=== PATIENT | female | born 1945 | race Caucasian/White ===

== ENCOUNTER → 2020-07-16 10:14 | Outpatient (CLI) | payer MEDICARE, BC, SELFPAY ==
[2020-07-16 10:43] LABS: Potassium 4.6 mmol/L (3.5-5.1)
== END ==
PROVIDERS: PCP Nurse Practitioner; Visit Provider Nurse Practitioner
DX: E87.5 Hyperkalemia (principal)
CPT/HCPCS: 84132

== ENCOUNTER → 2020-07-31 12:55 | Outpatient (CLI) | payer MEDICARE, BC, SELFPAY ==
--- NOTE | 2020-07-31 13:05 | BI_ITS ---
MAMMOGRAPHY - BILATERAL SCREENING REASON FOR EXAM: Female, 74 years old. Routine annual screening examination. PERTINENT HISTORY: Non-contributory. TECHNIQUE: Digital bilateral breast peter (3D mammographic acquisition) in the CC and MLO projections. 2-D mediolateral oblique (MLO) and craniocaudad (CC) views of both breasts were obtained. CAD: Full Field Digital Mammography with Computer Added Detection was performed. COMPARISON: Comparison is made with prior outside examination dated 07/12/2019. FINDINGS: Breast Composition: The breasts are heterogeneously dense, which may obscure small masses. There are no dominant masses or suspicious calcifications. Again, there is a breast asymmetry with more breast tissue is seen in the upper outer quadrant of the right breast as compared to the left side. This is unchanged. Stable small benign appearing bilateral axillary lymph nodes. No other significant abnormalities are identified. There has been no significant change since the prior study. BI/SCRN MAMM (CAD)W/PETER BILAT IMPRESSION: Stable bilateral screening mammogram. Yearly follow-up mammogram recommended. (A) ASSESSMENT CATEGORY: BIRADS Category 2: Benign. A letter regarding these results will be sent to the patient by the facility within 30 days. Approximately 10% of breast cancers are not detected by mammography. A normal mammogram should not delay biopsy of a clinically suspicious abnormality. [id number] Electronically Signed: Hemant Meneses MD at 15:43 EDT , Service support ,
== END ==
PROVIDERS: PCP Nurse Practitioner; Referring Provider Nurse Practitioner; Visit Provider Nurse Practitioner
DX: Z12.31 Encounter for screening mammogram for malignant neoplasm of breast (principal)
CPT/HCPCS: 77063; 77067

== ENCOUNTER 2021-03-18 13:37 | Outpatient (CLI) | payer MEDICARE, BC, SELFPAY ==
--- NOTE | 2021-03-18 13:41 | RAD_ITS ---
STUDY: X-RAY CHEST REASON FOR EXAM: Female, 75 years old. CHEST PRESSURE TECHNIQUE: PA and lateral views of the chest. COMPARISON: None. FINDINGS: There is hyperinflation of the lungs consistent with chronic obstructive lung disease (COPD). Mild increased markings at the left lung base. Early left basilar infiltrate should be ruled out. There is no demonstrated pleural abnormality. Normal size heart. Normal mediastinum and ge. Normal visualized pulmonary arteries. Normal visualized aortic arch and descending thoracic aorta. There is demineralization of the osseous structures. Normal visualized ribs, clavicles, and shoulders. There is no demonstrated abnormality of the visualized soft tissue structures of the upper abdomen. RAD/Chest PA and Lateral IMPRESSION: Hyperinflation. Early left lower lobe infiltrate. Electronically Signed: Hemant Meneses MD at 14:08 EST , Service support ,
[2021-03-18 15:08] LABS: Absolute Lymphocyte Count 2.32 X10^3/uL (0.83-4.51); Absolute Neutrophil Count 4.8 X10^3/uL (2.0-7.7); Basophil# 0.04 X10^3/uL; Basophil% 0.5 % (0-1); Eosinophil# 0.16 X10^3/uL; Hematocrit 38.7 % (37-47); Hemoglobin 12.3 g/dL (12.0-15.0); Lymphocyte # 2.32 X10^3/ul (0.83-4.51); Lymphocyte % 28.6 % (19-41); Mean Corp Hgb Conc 31.8 g/dL (32-36); Mean Corpuscular Volume 94.4 fL (81-99); Mean Platelet Vol. 11.9 fl (6.2-12.0); Monocyte# 0.71 X10^3/uL; Monocyte% 8.8 % (0-10); NRBC Flagged by Analyzer 0 % (0-5); Neutrophil # 4.84 X10^3/uL (2.7-7.7); Neutrophil % 59.7 % (47-70); Platelet Count 339 K/mm3 (150-450); RBC Distribution Width CV 14.4 % (11.6-14.6); RBC Distribution Width SD 49.6 fl (35.1-43.9); White Blood Count 8.1 K/mm3 (4.4-11.0)
[2021-03-18 15:36] LABS: D-Dimer Quantitative (DVT/PE) 0.66 FEU/ug/m (0.27-0.49)
[2021-03-18 15:46] LABS: ALB/GLOB Ratio 0.8 RATIO (0.9-2.4); AST(SGOT) 10 U/L (15-37); Alanine Aminotransfer ALT/SGPT 21 U/L (13-56); Albumin, Serum 3.8 g/dL (3.2-5.0); Alkaline Phosphatase 54 U/L (45-117); Anion Gap 5 (5-15); BUN 38 mg/dL (7-18); BUN/Creat Ratio 27.7 RATIO (10-20); Calcium,Total 9.6 mg/dL (8.5-10.1); Chloride 105 mmol/L (98-107); Creatinine, Serum 1.37 mg/dL (0.55-1.02); EST Glomerular Filtration Rate 40 mL/min (>60); Est Glom Filt Rate - Afr Amer 48 mL/min (>60); Globulin 4.5 g/dL (2.2-4.2); Glucose 125 mg/dL (74-106); Potassium 3.6 mmol/L (3.5-5.1); Protein, Total 8.3 g/dL (6.4-8.2); Sodium Level 137 mmol/L (136-145)
== END 2021-03-18 23:59 | disposition short-term general hospital (02) ==
LOC: MTLAB 13:39
PROVIDERS: PCP Nurse Practitioner; Referring Provider Nurse Practitioner; Visit Provider Nurse Practitioner
DX: R07.89 Other chest pain (principal); D69.3 Immune thrombocytopenic purpura
CPT/HCPCS: 36415; 71046; 80053; 85025; 85379

== ENCOUNTER 2021-04-09 10:31 | Outpatient (CLI) | payer MEDICARE, BC, SELFPAY ==
[2021-04-09 12:34] LABS: Creatinine, Serum 1.61 mg/dL (0.55-1.02); EST Glomerular Filtration Rate 33 mL/min (>60); Est Glom Filt Rate - Afr Amer 40 mL/min (>60); Thyroid Stim Hormone (TSH) 1.72 uIU/mL (0.358-3.74)
== END 2021-04-09 23:59 | disposition home or self-care (01) ==
LOC: MTLAB 10:32
PROVIDERS: PCP Nurse Practitioner; Referring Provider Psychiatry & Neurology Neurology; Visit Provider Psychiatry & Neurology Neurology
DX: G25.0 Essential tremor (principal)
CPT/HCPCS: 36415; 82565; 84443

== ENCOUNTER 2021-04-23 12:30 | Outpatient (CLI) | payer MEDICARE, BC, SELFPAY ==
--- NOTE | 2021-04-23 12:49 | MRI_ITS ---
EXAM: MR HEAD WITHOUT AND WITH INTRAVENOUS CONTRAST CLINICAL INDICATION: Gait Disorder, Nystagmus, TREMORS TECHNIQUE: Multiplanar and multisequence MR images of the brain were obtained without and with intravenous contrast. This report was created using [employer] report generation technology. CONTRAST: 13 ML IV DOTAREM COMPARISON: None. FINDINGS: BRAIN AND EXTRA-AXIAL SPACES: T2 FLAIR hyperintensity foci in the white matter of both cerebral hemispheres are nonenhancing and have no mass effects. These are chronic white matter ischemic changes. No enhancing lesions intraaxially and extra-axially. No remote cortical based ischemic infarcts. No midline shift and no mass effects. Normal ventricles and cisterns. No intra- or extra-axial hemorrhage. Posterior fossa structures are unremarkable. SELLA: Unremarkable. Normal sella turcica, pituitary gland, infundibular stalk, optic chiasm and hypothalamus. AUDITORY SYSTEM: Unremarkable. The internal auditory canals are patent. BONES/JOINTS: Unremarkable. No discrete lytic or blastic abnormalities. SINUSES: Unremarkable as visualized. Clear. MASTOID AIR CELLS: Unremarkable as visualized. Clear. ORBITS: Unremarkable as visualized. Both globes, extraocular muscles, optic nerves and retrobulbar fat appear unremarkable. VASCULATURE: Unremarkable as visualized. Normal flow voids in the major intracranial circulation. MRI/Brain W/WO Contrast IMPRESSION: 1. No MRI evidence of acute or subacute ischemic infarct or remote cortical based ischemic infarct. 2. No MRI evidence of intracranial mass. 3. Chronic white matter ischemic changes in both cerebral hemispheres. 4. No abnormal enhancing lesions intraaxially and extra-axially. Electronically Signed: Jacob Norris MD at 16:13 EST ,
--- NOTE | 2021-04-23 12:49 | MRI_ITS ---
STUDY: MRI CERVICAL SPINE WITHOUT CONTRAST REASON FOR EXAM: Female, 75 years old. Gait disorder, Neck Pain, TREMORS TECHNIQUE: Standardized fat and water weighted pulse sequences were obtained in the sagittal and axial planes. COMPARISON: None FINDINGS: Normal foramen magnum and brainstem-cervical cord junction. Normal craniovertebral junction. Normal anterior atlantoaxial articulation. Normal odontoid process. Normal cervical lordosis. Normal vertebral bodies and posterior osseous elements. C2-3: Normal endplates. Normal disc height, signal and morphology. Normal central canal and intervertebral neural foramina. C3-4: Normal endplates. Normal disc height. Minimal degenerative anterolisthesis of C3 on C4. Normal central canal and intervertebral neural foramina. C4-5: Normal endplates. Mild disc space height narrowing. Mild degenerative anterolisthesis of C4 on C5. Normal central canal and left intervertebral neural foramen. Moderately pronounced stenosis of the right intervertebral neural foramen. C5-6: MODIC type I degenerative vertebral marrow edema underneath the vertebral endplates. Moderate disc space height narrowing. Anterior and posterior marginal spurs. Normal central canal. Moderately pronounced stenosis of the intervertebral neural foramina. C6-7: Anterior posterior marginal spurs. Normal endplates. Moderate disc space height narrowing. Normal central canal and intervertebral neural foramina. C7-T1: Normal endplates. Normal disc height. Mild degenerative anterolisthesis of C7 on T1. Normal intervertebral neural foramina. Perineural cyst in the right intervertebral neural foramen. T1-T2: (Sagittal only). Normal endplates. Normal disc height. Minimal ventral extradural defect due to small posterior bulging annulus. Normal central canal and intervertebral neural foramina. T2-3: (Sagittal only). Normal endplates. Normal disc height. Minimal ventral extra dural defect due to small posterior bulging annulus. Normal central canal and intervertebral neural foramina. T3-T4: (Sagittal only). Normal endplates. Minimal disc space height narrowing. Mild degenerative anterolisthesis of T3 on T4. Normal central canal and intervertebral neural foramina. T4-T5 and T5-T6: (Sagittal only). Normal endplates. Normal disc height and morphology. Normal central canal and intervertebral neural foramina. Normal cervical cord. Normal upper thoracic spinal cord. Normal included portions of the brainstem and cerebellum. Normal visualized soft tissue structures. MRI/Spine Cervical (Routine) IMPRESSION: 1. No MRI evidence of cervical extruded disc fragment. 2. Minimal degenerative anterolisthesis of C3 on C4. 3. Minimal degenerative anterolisthesis of C4 on C5 and moderately pronounced stenosis of the right intervertebral neural foramen. 4. Mild C5-C6 intervertebral osteochondritis (MODIC type I) and moderately pronounced stenosis of the intervertebral neural foramina. 5. Mild degenerative anterolisthesis of C7 on T1 and T3 on T4. 6. Normal cervical spinal cord. Electronically Signed: Jacob Norris MD at 9:24 EST ,
== END 2021-04-23 23:59 | disposition home or self-care (01) ==
LOC: MRI 12:34
PROVIDERS: PCP Nurse Practitioner; Referring Provider Psychiatry & Neurology Neurology; Visit Provider Psychiatry & Neurology Neurology
DX: R26.9 Unspecified abnormalities of gait and mobility (principal); H55.00 Unspecified nystagmus
CPT/HCPCS: 70553; 72141; A9575

== ENCOUNTER 2021-06-04 14:15 | Outpatient (CLI) | payer MEDICARE, BC, SELFPAY ==
--- NOTE | 2021-06-04 14:19 | US_ITS ---
STUDY: RENAL ULTRASOUND - COMPLETE REASON FOR EXAM: Female, 75 years old. CKD TECHNIQUE: Ultrasound evaluation of the kidneys was performed with real-time and static alamo-scale imaging. COMPARISON: None. FINDINGS: RIGHT KIDNEY: Normal location of the right kidney, which is normal in size. The right kidney measures 9.7 cm x 4.3 cm x 4.2 cm. There is a normal cortex of the right kidney. The renal cortex measures 1.2 cm. Multiple small cysts are seen. The largest measures 8 mm x 7 mm x 7 mm. There are no right renal calculi. There is no right hydronephrosis. DISTAL RIGHT URETER: There is non-visualization of the distal right ureter. There is no demonstrated right ureterovesical junction calculus. There is a visualized right ureteral jet. LEFT KIDNEY: Normal location of the left kidney, which is normal in size. The left kidney measures 9.7 cm x 4.97 x 4.9 cm. There is a normal cortex of the left kidney. The renal cortex measures 1.0 cm. Multiple small cysts are seen. The largest measures 1.6 times by 1.4 size by 1.8 cm. There are no left renal calculi. There is no left hydronephrosis. DISTAL LEFT URETER: There is non-visualization of the distal left ureter. There is no demonstrated left ureterovesical junction calculus. There is a visualized left ureteral jet. BLADDER: The distended urinary bladder has a volume of 337 ml. There is a normal wall thickness of the distended urinary bladder. There is no demonstrated mass within the urinary bladder. There are no demonstrated bladder calculi. US/Kidney and Bladder IMPRESSION: Multiple small bilateral renal cysts. Electronically Signed: Hemant Meneses MD at 15:29 EDT ,
== END 2021-06-04 23:59 | disposition home or self-care (01) ==
LOC: US 14:18
PROVIDERS: PCP Internal Medicine; Referring Provider Internal Medicine Nephrology; Visit Provider Internal Medicine Nephrology
DX: N18.32 Chronic kidney disease, stage 3b (principal)
CPT/HCPCS: 76770

== ENCOUNTER → 2021-08-12 | Outpatient (CLI) | payer MEDICARE, BC, SELFPAY ==
[2021-08-12 15:13] LABS: Hematocrit 37.4 % (37-47); Hemoglobin 11.8 g/dL (12.0-15.0); Mean Corp Hgb Conc 31.6 g/dL (32-36); Mean Corpuscular Hgb 30.1 pg (27.0-32.0); Mean Corpuscular Volume 95.4 fL (81-99); Mean Platelet Vol. 12.1 fl (6.2-12.0); Platelet Count 277 K/mm3 (150-450); RBC Distribution Width CV 14.2 % (11.6-14.6); RBC Distribution Width SD 49.5 fl (35.1-43.9); Red Blood Count 3.92 M/mm3 (4.2-5.4); White Blood Count 7.1 K/mm3 (4.4-11.0)
[2021-08-12 15:30] LABS: Albumin, Serum 3.5 g/dL (3.2-5.0); BUN 37 mg/dL (7-18); BUN/Creat Ratio 26.6 RATIO (10-20); Calcium,Total 9.2 mg/dL (8.5-10.1); Chloride 105 mmol/L (98-107); Creatinine, Serum 1.39 mg/dL (0.55-1.02); EST Glomerular Filtration Rate 39 mL/min (>60); Est Glom Filt Rate - Afr Amer 47 mL/min (>60); Glucose 84 mg/dL (74-106); Phosphorus 2.9 mg/dL (2.5-4.9); Potassium 3.9 mmol/L (3.5-5.1); Sodium Level 139 mmol/L (136-145)
[2021-08-12 15:32] LABS: Protein, Urine (Random) 11.1 mg/dL (<11.9); Protein:Creat Ratio 211 mg/g CRE (0-200)
[2021-08-12 15:36] LABS: Vitamin D,25 Hydroxy 41.6 ng/mL
[2021-08-12 15:37] LABS: PTHIN 57.6 pg/mL (18.4-80.1)
[2021-08-14 19:06] LABS: Cytoplasmic Ab (C-ANCA) <1:20 titer (Neg:<1:20); PROEL- A/G Ratio 1.1 (0.7-1.7); PROEL- Albumin 3.8 g/dL (2.9-4.4); PROEL- Alpha-1 Globulin 0.3 g/dL (0.0-0.4); PROEL- Alpha-2 Globulin 0.7 g/dL (0.4-1.0); PROEL- Beta Globulin 1.2 g/dL (0.7-1.3); PROEL- Gamma Globulin 1.3 g/dL (0.4-1.8); PROEL- Globulin, Total 3.5 g/dL (2.2-3.9); PROEL- TOTAL PROTEIN 7.3 g/dL (6.0-8.5)
[2021-08-15 19:50] LABS: Anti-dsDNA Ab <1 IU/mL (0-9)
[2021-08-15 19:53] LABS: Complement C3 178 mg/dL (82-167); Perinuclear Ab (P-ANCA) <1:20 titer (Neg:<1:20)
== END | disposition home or self-care (01) ==
LOC: MTLAB 11:16
PROVIDERS: PCP Internal Medicine; Referring Provider Internal Medicine Nephrology; Visit Provider Internal Medicine Nephrology
DX: N18.32 Chronic kidney disease, stage 3b (principal); E55.9 Vitamin D deficiency, unspecified
CPT/HCPCS: 80069; 82306; 82570; 83970; 84156; 84165; 85027; 86160; 86225; 86256

== ENCOUNTER 2021-08-27 15:27 | Outpatient (CLI) | payer MEDICARE, BC, SELFPAY ==
[2021-08-27 15:49] VITALS: BP 153/70; PULSE 73; RESP 20; TEMP 37.7; O2SAT 94; BMI 24.5
[2021-08-27] MEDS: 0.9% Saline Lock 10 ML Syringe IV ×3 (16:00→16:10)
[2021-08-27] MEDS: BEBTELOVIMAB 175 MG/2 ML VIAL IV (16:07)
[2021-08-27 16:37] VITALS: BP 150/66; PULSE 66; RESP 20; TEMP 37.2; O2SAT 96
[2021-08-27 16:56] VITALS: BP 131/67; PULSE 69; RESP 20; TEMP 37.3; O2SAT 99
== END 2021-08-27 17:07 | disposition home or self-care (01) ==
LOC: MS3OUT 15:28 → MS2 15:29
PROVIDERS: PCP Internal Medicine; Visit Provider Nurse Practitioner Adult Health
DX: U07.1 COVID-19 (principal)
CPT/HCPCS: M0222; Q0222; A4216

== ENCOUNTER 2021-09-21 17:56 | Inpatient (IN) | payer MEDICARE, BC, SELFPAY ==
[2021-09-21 17:57] VITALS: BP 174/82; PULSE 71; RESP 16; TEMP 36.6; O2SAT 97; BMI 23.7
--- NOTE | 2021-09-21 18:37 | EDS_ITS ---
HPI History of Present Illness Chief Complaint: Complaint Informant: patient Onset/Context/Timing Onset: Days Location: bladder Current Severity: Mild Worsened by: none Relieved by: none Narrative Narrative: Patient was diagnosed with a UTI. She had cultures that showed resistance to sulfa and she was started on Keflex. She said that the Keflex did not agree with her and she was concerned for allergic reaction. She has no dyspnea, rash, GI symptoms, or HOSPITAL[employer] ASSOCIATE symptoms. No fevers or systemic symptoms currently. Her PCP told her to come to the ED to get on a different antibiotic. They said they were going to fax the culture results. Recent Illness/Hospitalization: Yes [facility] Medical History Anal condyloma Balance disorder Basal cell carcinoma Benign joint hypermobility CKD stage G3b/A1, GFR 30-44 and albumin creatinine ratio <30 mg/g Coarse tremors Decreased GFR Depression with anxiety Enchondroma Essential tremor GERD (gastroesophageal reflux disease) History of diverticulitis History of kidney stones Hyperlipemia Hypertension Idiopathic thrombocytopenic purpura (ITP) Impaired fasting glucose Nausea Nocturnal hypoxia CYNTHIA (obstructive sleep apnea) Osteopenia Pancreatic divisum Pneumonia Rectal abnormality Renal cyst Rosacea Vitamin D deficiency Home Medications doxycycline monohydrate 40 mg capsule,immediate - delay release 40 mg PO DAILY 04/09/21 [History Last Taken Unknown] famotidine 20 mg tablet (Pepcid) 20 mg PO DAILY 04/09/21 [History Last Taken Unknown] fenofibrate nanocrystallized 145 mg tablet (Tricor) 145 mg PO DAILY 04/09/21 [History Last Taken Unknown] folic acid 400 mcg tablet 0.4 mg PO DAILY 04/09/21 [History Last Taken Unknown] lisinopril 20 mg tablet 20 mg PO BID 04/09/21 [History Last Taken Unknown] prochlorperazine maleate 5 mg tablet 5 - 10 mg PO Q6H PRN Stomach Upset 04/09/21 [History Last Taken Unknown] albuterol sulfate 90 mcg/actuation aerosol inhaler 2 puff inhalation Q4H PRN shortness of breath or wheezing 07/16/21 [History Last Taken Unknown] propranolol 10 mg tablet 10 mg PO BID #60 tabs 07/16/21 [Rx Last Taken Unknown] sulfamethoxazole 800 mg-trimethoprim 160 mg tablet 1 tab PO BID 09/21/21 [History Last Taken Unknown] Allergy/AdvReac Type Severity Reaction Status Date / Time primidone Allergy Severe Anaphylaxis Verified 09/15/21 10:11 alcohol Allergy Unknown Rash Verified 09/15/21 10:11 [From Mastisol Adhesive] beef derived (bovine) Allergy Unknown Unknown Verified 09/15/21 10:11 gum mastic Allergy Unknown Rash Verified 09/15/21 10:11 [From Mastisol Adhesive] methyl salicylate Allergy Unknown Rash Verified 09/15/21 10:11 [From Mastisol Adhesive] mold Allergy Unknown Difficulty Verified 09/15/21 10:11 Breathing/Wheezing penicillin V Allergy Unknown Rash Verified 09/15/21 10:11 storax Allergy Unknown Rash Verified 09/15/21 10:11 [From Mastisol Adhesive] Statins Support Allergy Unknown Unknown Uncoded 08/27/21 14:22 Betachron AdvReac Unknown Spikes in Uncoded 08/27/21 14:22 BP Family History Father Cancer Diabetes CVA (cerebral vascular accident) Ulcer Grandfather Cancer Mother Hypertension CVA (cerebral vascular accident) Thyroid disorder Brother Hypertension Sister Hypertension Kidney disease Autoimmune disease Surgical History History of bladder surgery History of cataract surgery History of section History of cholecystectomy History of colon surgery History of D&C History of hip replacement History of hysterectomy History of kidney surgery History of left hip replacement History of splenectomy Social History Smoking Status: Never smoker Electronic Cigarette Use: not used second hand exposure: No alcohol intake: never substance use type: does not use ROS ROS ED Constitutional Constitutional ED: Denies chills or fever(s) Eyes Eyes: Denies blurry vision ENT ENT ED: Denies ear pain Cardiovascular Cardiovascular: Denies chest pain Respiratory/Chest Respiratory/Chest: Denies cough Gastrointestinal Gastrointestinal: Denies abdominal pain Genitourinary Genitourinary ED: Denies dysuria Musculoskeletal Musculoskeletal: Denies arthralgias Integumentary Denies abscess Neurologic Neurologic: Denies headache(s) Psychiatric Psychiatric: Denies anxiety Endocrine Endocrinology: Denies cold intolerance Hematologic/Lymphatic Hematologic/Lymphatic: Denies systems reviewed and no addt'l complaints, except as documented Allergic/Immunologic Allergic/Immunologic ED: Denies mouth swelling EXAM Physical Exam Const Vital Signs: 09/21/21 17:57 Temperature 97.9 F Temperature Source Temporal Pulse Rate 71 Respiratory Rate 16 Blood Pressure 174/82 H Blood Pressure Mean 112 Pulse Ox 97 Oxygen Delivery Method Room Air Positive well nourished and well developed General Appearance ED: well developed HEENT Reports moist mucous membranes Eyes EOMs intact bilaterally Resp normal respiratory effort and clear to auscultation bilaterally Cardio regular rate and regular rhythm GI normal to inspection, nondistended, normoactive bowel sounds, non-tender and non-distended Back/Spine no CVA tenderness Extremity normal to inspection Neuro oriented x3 Sensorium / Orientation: alert Psych mental status grossly normal Skin no rashes or lesions noted MDM MDM MDM Narrative Medical decision making narrative: Patient's cultures were obtained. She was sensitive to cephalosporins. I discussed her case with Dr. Sainz who advised Omnicef. Unfortunately, the patient's creatinine was elevated meeting criteria for acute kidney injury. She is not septic or showing any other complications. She was discussed with the hospitalist and will be admitted. She was treated with Rocephin and IV fluids. Impression #1 UTI Impression #2 CAMER[facility] Lab Data Attestation: I reviewed the patient's lab results. Labs: Laboratory Results - last 24 hr 09/21/21 09/21/21 18:49 18:49 WBC 9.9 RBC 4.51 Hgb 13.9 Hct 41.9 MCV 92.9 MCH 30.8 MCHC 33.2 RDW Std Deviation 51.0 H RDW Coeff of Zachariah 14.9 H Plt Count 319 MPV 11.8 Immature Gran % (Auto) 0.400 Neut % (Auto) 66.2 Lymph % (Auto) 21.5 [place] % (Auto) 10.5 H Eos % (Auto) 1.1 Baso % (Auto) 0.3 Absolute Neuts (auto) 6.5 Absolute Lymphs (auto) 2.12 Nucleated RBC % 0 Sodium 134 L Potassium 4.5 Chloride 104 Carbon Dioxide 25.0 Anion Gap 5 BUN 65 H Creatinine 2.48 H Estim Creat Clear Calc 18.35 Est GFR (MDRD) Af Amer 24 L Est GFR (MDRD) Non-Af 20 L BUN/Creatinine Ratio 26.2 H Glucose 99 Calcium 9.5 Discharge Plan Triage Chief Complaint: Complaint ED Provider: Jeancarlos Hopkins Dx/Rx/DC Orders Prescriptions: No Action doxycycline monohydrate 40 mg capsule,IR - delay rel,biphase 40 mg PO DAILY prochlorperazine maleate 5 mg tablet 5 - 10 mg PO Q6H PRN (Reason: Stomach Upset) lisinopril 20 mg tablet 20 mg PO BID fenofibrate nanocrystallized [Tricor] 145 mg tablet 145 mg PO DAILY famotidine [Pepcid] 20 mg tablet 20 mg PO DAILY folic acid 400 mcg tablet 0.4 mg PO DAILY albuterol sulfate 90 mcg/actuation HFA aerosol inhaler 2 puff inhalation Q4H PRN (Reason: shortness of breath or wheezing) propranolol 10 mg tablet 10 mg PO BID Qty: 60 3RF sulfamethoxazole-trimethoprim 800-160 mg tablet 1 tab PO BID Label Comments: take 1 tablet by mouth twice a day Primary Care Provider: Kristina Brandon Referrals: Kristina Brandon DO [Primary Care Provider] -
[2021-09-21 19:17] LABS: Absolute Lymphocyte Count 2.12 X10^3/uL (0.83-4.51); Absolute Neutrophil Count 6.5 X10^3/uL (2.0-7.7); Basophil# 0.03 X10^3/uL; Basophil% 0.3 % (0-1); Eosinophil# 0.11 X10^3/uL; Eosinophils% 1.1 % (0-5); Hematocrit 41.9 % (37-47); Hemoglobin 13.9 g/dL (12.0-15.0); Lymphocyte # 2.12 X10^3/ul (0.83-4.51); Lymphocyte % 21.5 % (19-41); Mean Corp Hgb Conc 33.2 g/dL (32-36); Mean Corpuscular Hgb 30.8 pg (27.0-32.0); Mean Corpuscular Volume 92.9 fL (81-99); Mean Platelet Vol. 11.8 fl (6.2-12.0); Monocyte# 1.04 X10^3/uL; Monocyte% 10.5 % (0-10); NRBC Flagged by Analyzer 0 % (0-5); Neutrophil # 6.52 X10^3/uL (2.7-7.7); Neutrophil % 66.2 % (47-70); Platelet Count 319 K/mm3 (150-450); RBC Distribution Width CV 14.9 % (11.6-14.6); Red Blood Count 4.51 M/mm3 (4.2-5.4); White Blood Count 9.9 K/mm3 (4.4-11.0)
[2021-09-21 19:32] LABS: Anion Gap 5 (5-15); BUN 65 mg/dL (7-18); BUN/Creat Ratio 26.2 RATIO (10-20); Calcium,Total 9.5 mg/dL (8.5-10.1); Chloride 104 mmol/L (98-107); Creatinine, Serum 2.48 mg/dL (0.55-1.02); EST Glomerular Filtration Rate 20 mL/min (>60); Est Glom Filt Rate - Afr Amer 24 mL/min (>60); Estimated Creatinine Clearance 18.35 ml/min; Glucose 99 mg/dL (74-106); Potassium 4.5 mmol/L (3.5-5.1); Sodium Level 134 mmol/L (136-145)
--- NOTE | 2021-09-21 20:17 | HP.PCM_ITS ---
HPI - General General Date of Admission: 09/21/21 Date of Service: 09/21/21 Chief Complaint: UTI and acute kidney injury HPI Narrative SARA LÓPEZ, is a 75 F who presents to the emergency room with chief complaint of feeling nauseated and dizzy. Patient had been treated as an outpatient for UTI with Keflex but was subsequently changed to Bactrim due to sensitivity data that was received on the infection. Patient has then developed side effects of feeling dizzy with the new medication and came to the emergency room for evaluation. She is now stable and feeling better however it was noticed that she had an increase in her creatinine to 2.4. She will be admitted for observation overnight for IV hydration and management of her acute kidney injury and continued on IV antibiotics to cover her UTI. [facility] Medical History Anal condyloma Balance disorder Basal cell carcinoma Benign joint hypermobility CKD stage G3b/A1, GFR 30-44 and albumin creatinine ratio <30 mg/g Coarse tremors Decreased GFR Depression with anxiety Enchondroma Essential tremor GERD (gastroesophageal reflux disease) History of diverticulitis History of kidney stones Hyperlipemia Hypertension Idiopathic thrombocytopenic purpura (ITP) Impaired fasting glucose Nausea Nocturnal hypoxia CYNTHIA (obstructive sleep apnea) Osteopenia Pancreatic divisum Pneumonia Rectal abnormality Renal cyst Rosacea Vitamin D deficiency Home Medications doxycycline monohydrate 40 mg capsule,immediate - delay release 40 mg PO DAILY 04/09/21 [History Last Taken Unknown] famotidine 20 mg tablet (Pepcid) 20 mg PO DAILY 04/09/21 [History Last Taken Unknown] fenofibrate nanocrystallized 145 mg tablet (Tricor) 145 mg PO DAILY 04/09/21 [History Last Taken Unknown] folic acid 400 mcg tablet 0.4 mg PO DAILY 04/09/21 [History Last Taken Unknown] lisinopril 20 mg tablet 20 mg PO BID 04/09/21 [History Last Taken Unknown] prochlorperazine maleate 5 mg tablet 5 - 10 mg PO Q6H PRN Stomach Upset 04/09/21 [History Last Taken Unknown] albuterol sulfate 90 mcg/actuation aerosol inhaler 2 puff inhalation Q4H PRN shortness of breath or wheezing 07/16/21 [History Last Taken Unknown] propranolol 10 mg tablet 10 mg PO BID #60 tabs 07/16/21 [Rx Last Taken Unknown] sulfamethoxazole 800 mg-trimethoprim 160 mg tablet 1 tab PO BID 09/21/21 [History Last Taken Unknown] Allergy/AdvReac Type Severity Reaction Status Date / Time primidone Allergy Severe Anaphylaxis Verified 09/15/21 10:11 alcohol Allergy Unknown Rash Verified 09/15/21 10:11 [From Mastisol Adhesive] beef derived (bovine) Allergy Unknown Unknown Verified 09/15/21 10:11 gum mastic Allergy Unknown Rash Verified 09/15/21 10:11 [From Mastisol Adhesive] methyl salicylate Allergy Unknown Rash Verified 09/15/21 10:11 [From Mastisol Adhesive] mold Allergy Unknown Difficulty Verified 09/15/21 10:11 Breathing/Wheezing penicillin V Allergy Unknown Rash Verified 09/15/21 10:11 storax Allergy Unknown Rash Verified 09/15/21 10:11 [From Mastisol Adhesive] Statins Support Allergy Unknown Unknown Uncoded 08/27/21 14:22 Betachron AdvReac Unknown Spikes in Uncoded 08/27/21 14:22 BP Family History Father Cancer Diabetes CVA (cerebral vascular accident) Ulcer Grandfather Cancer Mother Hypertension CVA (cerebral vascular accident) Thyroid disorder Brother Hypertension Sister Hypertension Kidney disease Autoimmune disease Surgical History History of bladder surgery History of cataract surgery History of section History of cholecystectomy History of colon surgery History of D&C History of hip replacement History of hysterectomy History of kidney surgery History of left hip replacement History of splenectomy Social History Smoking Status: Never smoker Electronic Cigarette Use: not used second hand exposure: No alcohol intake: never substance use type: does not use ROS Constitutional Constitutional: Denies chills or fever(s) Eyes Eyes: Denies change in vision ENT HEENT: Denies abnormal hearing Cardiovascular Cardiovascular: Denies chest pain Respiratory/Chest Respiratory/Chest: Denies shortness of breath at rest Gastrointestinal Gastrointestinal: Denies abdominal pain Genitourinary Genitourinary: Denies dysuria Musculoskeletal Musculoskeletal: Denies back pain Neurologic Neurologic: Denies abnormal speech Psychiatric Psychiatric: Denies anxiety Vital Signs Vital Signs Vital Signs: 09/21/21 17:57 Temperature 97.9 F Temperature Source Temporal Pulse Rate 71 Respiratory Rate 16 Blood Pressure 174/82 H Blood Pressure Mean 112 Pulse Ox 97 Oxygen Delivery Method Room Air Weight Weight: 147 lb Body Mass Index (BMI) 23.7 Physical Exam Const oriented x3 HEENT normocephalic and head/scalp atraumatic Eyes PERRL Neck no lymphadenopathy Resp normal respiratory effort and normal air movement Cardio regular rate, regular rhythm, S1 normal heart sound and S2 normal heart sound GI normal to inspection, nondistended, normoactive bowel sounds Extremity normal capillary refill Skin General Skin Exam: no breakdown Neuro no focal motor deficits and no sensory deficits noted Psych thought process normal Results Lab / Micro Data Result Diagrams: 09/21/21 18:49 09/21/21 18:49 Labs: Laboratory Results - last 24 hr 09/21/21 18:49: WBC 9.9, RBC 4.51, Hgb 13.9, Hct 41.9, MCV 92.9, MCH 30.8, MCHC 33.2, RDW Std Deviation 51.0 H, RDW Coeff of Zachariah 14.9 H, Plt Count 319, MPV 11.8, Immature Gran % (Auto) 0.400, Neut % (Auto) 66.2, Lymph % (Auto) 21.5, [place] % (Auto) 10.5 H, Eos % (Auto) 1.1, Baso % (Auto) 0.3, Absolute Neuts (auto) 6.5, Absolute Lymphs (auto) 2.12, Nucleated RBC % 0 09/21/21 18:49: Sodium 134 L, Potassium 4.5, Chloride 104, Carbon Dioxide 25.0, Anion Gap 5, BUN 65 H, Creatinine 2.48 H, Estim Creat Clear Calc 18.35, Est GFR (MDRD) Af Amer 24 L, Est GFR (MDRD) Non-Af 20 L, BUN/Creatinine Ratio 26.2 H, Glucose 99, Calcium 9.5 Assessment & Plan Assessment/Plan (1) UTI (urinary tract infection): (2) Acute kidney injury: PLAN: Plan 1. Acute kidney injury?admit patient to medical surgical floor for observation, start normal saline IV at 125 cc/h, repeat BMP in the morning 2. Urinary tract infection?1 g IV Rocephin every 24 hours 3. DVT prophylaxis?SCDs due to renal function changes Charges/Coding Visit Charges OBSV E&M: 74786 Initial observation care L2
[2021-09-21 20:28] VITALS: BP 158/75; PULSE 65; RESP 18; TEMP 37; O2SAT 99
[2021-09-21] MEDS: Ceftriaxone 1 GM/50 ML BAG IV (20:38)
[2021-09-21] MEDS: 0.9% Normal Saline 1,000 ML 1000 ML IV (20:38)
[2021-09-21 22:09] VITALS: BMI 24.0
[2021-09-21 23:03] VITALS: BP 159/55; PULSE 66; RESP 18; TEMP 36.1; O2SAT 95
[2021-09-21] MEDS: 0.9% Normal Saline 1,000 ML 125 ML IV (23:05)
[2021-09-21] MEDS: Famotidine 20 MG Tablet PO (23:05)
[2021-09-21] MEDS: Lisinopril 20 MG Tablet PO (23:06)
[2021-09-21] MEDS: Propranolol 10 MG Tablet PO (23:06)
[2021-09-21 23:30] VITALS: PULSE 67; RESP 18; O2SAT 99
[2021-09-22 05:55] VITALS: BP 129/57; PULSE 58; RESP 16; TEMP 36.6; O2SAT 100
[2021-09-22] MEDS: 0.9% Normal Saline 1,000 ML 125 ML IV ×3 (06:10→20:59)
[2021-09-22 06:21] VITALS: O2SAT 99
[2021-09-22 07:29] LABS: Anion Gap 8 (5-15); BUN 53 mg/dL (7-18); BUN/Creat Ratio 28.8 RATIO (10-20); Calcium,Total 8.8 mg/dL (8.5-10.1); Chloride 109 mmol/L (98-107); Creatinine, Serum 1.84 mg/dL (0.55-1.02); EST Glomerular Filtration Rate 28 mL/min (>60); Est Glom Filt Rate - Afr Amer 34 mL/min (>60); Estimated Creatinine Clearance 24.73 ml/min; Glucose 85 mg/dL (74-106); Potassium 4.8 mmol/L (3.5-5.1); Sodium Level 139 mmol/L (136-145)
[2021-09-22 08:00] VITALS: BP 143/68; PULSE 62; RESP 16; TEMP 36.6; O2SAT 100
[2021-09-22] MEDS: Folic Acid 1 MG Tablet 0.5 MG PO (08:11)
[2021-09-22] MEDS: Lisinopril 20 MG Tablet PO ×2 (09:43→20:52)
[2021-09-22] MEDS: Propranolol 10 MG Tablet PO ×2 (09:43→20:51)
--- NOTE | 2021-09-22 10:33 | CASEMGMT ---
PATRIA OLMOS Assessment: Face to Face with pt for initial transition planning/care coordination assessment. PATRIA OLMOS introduced self and role at [facility], pt voices understanding and consents to assessment. Pt is A/O x4 and answers all questions appropriately at this time. Pt lying in bed on RA in no distress. Care providers, pharmacy, and demographics verified/updated. Admitting Dx: CAMERON, UTI PCP: [facility] Specialists:Analy, puljaneth; Kane, nephro; Alton, neuro [facility] Insurance: Nancy QIU Prescription Benefit: yes LW/HPOA: Pt denies having a LW/DPOA and denies need for info regarding AD. She thinks she may have completed one in [place] but is not sure. Notified SW. LNOK: Franko Thompson, ; Lashell Thompson, dtr Living Arrangements: Pt lives with in a three story house with 2 steps to enter with a rail. Pt reports she is I in ADL's and denies concerns at home. Transportation: Pt drives self and denies concerns with transportation. States her mostly drives though. DME/HHC/SNF: Pt has a CPAP that she got through [facility] in [place]. She states she has a sleep study scheduled in September. Pt also has a shower chair, grab bars in the bathroom, a 3 prong cane as well as other canes and a walking stick. Pt denies hx of HHC and states she was in a SNF in [place]. Pt states no concerns with going home at time of dc. Pt states no further concerns/needs. CM to follow. Advised pt to ask CM if any further question/concerns/needs arise, voices understanding. Pt Goal: Home Plan: Home
--- NOTE | 2021-09-22 12:09 | CASEMGMT ---
Social Work RNCM informed SW that pt has advance directives from [place]. SW met with pt and provided blank [place] Advance Directive forms and Advance Directive Rack Card. Pt states she is familiar with the process and forms and denied help with completion at this time. ACACIA Real
[2021-09-22 14:17] VITALS: BP 155/69; PULSE 72; RESP 16; TEMP 36.7; O2SAT 98
--- NOTE | 2021-09-22 14:53 | PN.HOSP_ITS ---
Subjective Subjective Patient seen and examined. She had no active complaints. She felt much better today. Review of systems is otherwise negative. She has remained hemodynamically stable. Objective Data Objective Data Vital Signs: Vital Signs Temp Pulse Resp BP Pulse Ox O2 Del Method O2 Flow Rate 98.1 F 72 16 155/69 H 98 Room Air 2 09/22/21 14:17 09/22/21 14:17 09/22/21 14:17 09/22/21 14:17 09/22/21 14:17 09/22/21 14:17 09/22/21 05:55 Oxygen Flow Rate (L/min) 2 Oxygen Delivery Method Room Air Weight: 148 lb 12.8 oz Body Mass Index (BMI) 24.0 Intake & Output: Intake and Output for Last 24 Hours 09/20/21 09/21/21 09/22/21 23:59 23:59 23:59 Intake Total 1050 / 1050 1885.42 / 1885.42 Output Total 200 / 200 Balance 850 / 850 1885.42 / 1885.42 Lab / Micro Data Result Diagrams: 09/21/21 18:49 09/22/21 05:15 Labs: Laboratory Results - last 24 hr 09/21/21 18:49: WBC 9.9, RBC 4.51, Hgb 13.9, Hct 41.9, MCV 92.9, MCH 30.8, MCHC 33.2, RDW Std Deviation 51.0 H, RDW Coeff of Zachariah 14.9 H, Plt Count 319, MPV 11.8, Immature Gran % (Auto) 0.400, Neut % (Auto) 66.2, Lymph % (Auto) 21.5, [place] % (Auto) 10.5 H, Eos % (Auto) 1.1, Baso % (Auto) 0.3, Absolute Neuts (auto) 6.5, Absolute Lymphs (auto) 2.12, Nucleated RBC % 0 09/21/21 18:49: Sodium 134 L, Potassium 4.5, Chloride 104, Carbon Dioxide 25.0, Anion Gap 5, BUN 65 H, Creatinine 2.48 H, Estim Creat Clear Calc 18.35, Est GFR (MDRD) Af Amer 24 L, Est GFR (MDRD) Non-Af 20 L, BUN/Creatinine Ratio 26.2 H, Glucose 99, Calcium 9.5 09/22/21 05:15: Sodium 139, Potassium 4.8, Chloride 109 H, Carbon Dioxide 22.0, Anion Gap 8, BUN 53 H, Creatinine 1.84 H, Estim Creat Clear Calc 24.73, Est GFR (MDRD) Af Amer 34 L, Est GFR (MDRD) Non-Af 28 L, BUN/Creatinine Ratio 28.8 H, Glucose 85, Calcium 8.8 Physical Exam Const alert, oriented x3 and no apparent distress HEENT head/scalp atraumatic, moist oral mucous membranes and oropharynx normal Mouth: oral and palatal mucosa normal Eyes PERRL, EOMs intact bilaterally and conjunctivae normal Neck no lymphadenopathy, supple and no JVD Resp normal respiratory effort Cardio regular rate, regular rhythm, S1 normal heart sound, S2 normal heart sound and no murmurs GI normal to inspection, nondistended, normoactive bowel sounds, soft to palpation, non-tender and non-distended Extremity normal to inspection, full ROM and no clubbing, cyanosis or edema Neuro oriented x3, CN's II-XII intact bilaterally and moves all extremities Sensorium / Orientation: awake and alert Motor Exam: strength 5/5 throughout Psych affect normal Assessment & Plan Assessment/Plan (1) UTI (urinary tract infection): (2) Acute kidney injury: PLAN: Plan #CAMERON * likely medication induced * her antibiotics were switched to bactrim, which is likely the cause of her CAMERON * continue gentle hydration with IVF * bactrim discontinued * Cr is dwn to 1.84, from 2.48 on admission. * #UTI: on IV ceftriaxon #Hypertension; lisinopril held due to CAMERON. On propranolol #Hyperlipidemia: on fenofibrate DVT prophylaxis: lovenox, renally dosed Charges/Coding Visit Charges Inpatient E&M: 16356 Subs Hosp L2
[2021-09-22 20:17] VITALS: BP 173/58; PULSE 77; RESP 20; TEMP 36.7; O2SAT 97
[2021-09-22] MEDS: Famotidine 20 MG Tablet PO (20:51)
[2021-09-22] MEDS: 0.9% Saline Lock 10 ML Syringe IV (20:52)
[2021-09-23 03:51] VITALS: BP 109/36; PULSE 81; RESP 18; TEMP 36.3; O2SAT 95
[2021-09-23] MEDS: 0.9% Normal Saline 1,000 ML 125 ML IV (03:56)
[2021-09-23 07:08] LABS: Absolute Lymphocyte Count 1.65 X10^3/uL (0.83-4.51); Absolute Neutrophil Count 3.4 X10^3/uL (2.0-7.7); Basophil# 0.02 X10^3/uL; Basophil% 0.3 % (0-1); Eosinophil# 0.15 X10^3/uL; Eosinophils% 2.6 % (0-5); Hematocrit 38.4 % (37-47); Hemoglobin 12.2 g/dL (12.0-15.0); Lymphocyte # 1.65 X10^3/ul (0.83-4.51); Lymphocyte % 28.1 % (19-41); Mean Corp Hgb Conc 31.8 g/dL (32-36); Mean Corpuscular Hgb 30.7 pg (27.0-32.0); Mean Corpuscular Volume 96.7 fL (81-99); Mean Platelet Vol. 11.8 fl (6.2-12.0); Monocyte# 0.66 X10^3/uL; Monocyte% 11.2 % (0-10); NRBC Flagged by Analyzer 0 % (0-5); Neutrophil # 3.38 X10^3/uL (2.7-7.7); Neutrophil % 57.5 % (47-70); Platelet Count 281 K/mm3 (150-450); RBC Distribution Width CV 15.2 % (11.6-14.6); RBC Distribution Width SD 53.9 fl (35.1-43.9); Red Blood Count 3.97 M/mm3 (4.2-5.4); White Blood Count 5.9 K/mm3 (4.4-11.0)
[2021-09-23 07:46] LABS: Anion Gap 3 (5-15); BUN 45 mg/dL (7-18); BUN/Creat Ratio 27.1 RATIO (10-20); Calcium,Total 8.6 mg/dL (8.5-10.1); Chloride 113 mmol/L (98-107); Creatinine, Serum 1.66 mg/dL (0.55-1.02); EST Glomerular Filtration Rate 32 mL/min (>60); Est Glom Filt Rate - Afr Amer 39 mL/min (>60); Estimated Creatinine Clearance 27.41 ml/min; Glucose 84 mg/dL (74-106); Potassium 4.8 mmol/L (3.5-5.1); Sodium Level 139 mmol/L (136-145)
[2021-09-23] MEDS: Folic Acid 1 MG Tablet 0.5 MG PO (08:45)
[2021-09-23 09:01] VITALS: O2SAT 95
[2021-09-23 09:15] VITALS: BP 151/64; PULSE 74; RESP 16; TEMP 36.6; O2SAT 97
[2021-09-23] MEDS: Lisinopril 20 MG Tablet PO (09:24)
[2021-09-23] MEDS: Propranolol 10 MG Tablet PO (09:24)
--- NOTE | 2021-09-23 11:00 | DS.PCM_ITS ---
Providers Date of Admission: 09/22/21 Date of Discharge: 09/23/21 Primary Care Physician: Dr. Kristina Brandon DO Reason For Visit: ACUTE KIDNEY INJURY, UTI Diagnosis Discharge Diagnosis (1) UTI (urinary tract infection): Status: Acute Code(s): N39.0 - Urinary tract infection, site not specified (2) Acute kidney injury: Status: Acute Code(s): N17.9 - Acute kidney failure, unspecified Plan #CAMERON * likely medication induced * her antibiotics were switched to bactrim, which is likely the cause of her CAMERON * continue gentle hydration with IVF * bactrim discontinued * Cr is dwn to 1.84, from 2.48 on admission. * #UTI: on IV ceftriaxon #Hypertension; lisinopril held due to CAMERON. On propranolol #Hyperlipidemia: on fenofibrate DVT prophylaxis: lovenox, renally dosed Medications at Discharge Home Medications famotidine 20 mg tablet (Pepcid) 20 mg PO DAILY 04/09/21 fenofibrate nanocrystallized 145 mg tablet (Tricor) 145 mg PO DAILY 04/09/21 folic acid 400 mcg tablet 0.4 mg PO DAILY 04/09/21 lisinopril 20 mg tablet 20 mg PO BID 04/09/21 prochlorperazine maleate 5 mg tablet 5 - 10 mg PO Q6H PRN Stomach Upset 04/09/21 albuterol sulfate 90 mcg/actuation aerosol inhaler 2 puff inhalation Q4H PRN shortness of breath or wheezing 07/16/21 propranolol 10 mg tablet 10 mg PO BID #60 tabs 07/16/21 Hospital Course Operations None Procedures None Summary of Care Provided Minutes Spent on Discharge: 45 Hospital Course: Patient is a 75-year-old female with a past medical history as outlined was admitted through the ED on 09/21/2021 with a complaint of nausea and dizziness. Patient had been treated on outpatient basis for UTI and had been started on Keflex was subsequently switched to Bactrim based on sensitivity data. Subsequently started feeling dizzy and came into the ED. Her creatinine was noted to have trended up to 2.4 she was she was admitted to be managed for CAMERON on CKD stage IIIb. She was hydrated with IV fluids and put on IV ceftriaxone. Creatinine trended down with IV fluids and trended down to 1.66. CAMERON on CKD was thought to be due to Bactrim. Patient felt much better and did well. She was discharged on 09/23/2021. Since she had had at least 5 days of antibiotics, she was not discharged on any antibiotics for the UTI. She is to follow-up with her primary care doctor within 1 week for follow-up BMP. Patient seen and examined prior to discharge. She had no active complaints and had an uneventful night. Review of systems otherwise negative. Labs and vitals reviewed. Home medication reviewed and reconciled. Physical Exam Const alert, oriented x3 and no apparent distress General Appearance: cooperative and comfortable Orientation / Consciousness: awake Exam Limitations: no limitations HEENT normocephalic, head/scalp atraumatic, hearing grossly normal bilaterally, moist oral mucous membranes and oropharynx normal Mouth: oral and palatal mucosa normal Eyes PERRL, EOMs intact bilaterally and conjunctivae normal Neck no lymphadenopathy, supple and no JVD Resp normal respiratory effort Cardio regular rate, regular rhythm, S1 normal heart sound, S2 normal heart sound and no murmurs GI normal to inspection, nondistended, normoactive bowel sounds, soft to palpation, non-tender and non-distended Extremity normal to inspection, full ROM and no clubbing, cyanosis or edema Skin no rashes or lesions noted Neuro oriented x3, CN's II-XII intact bilaterally and moves all extremities Sensorium / Orientation: awake and alert Motor Exam: strength 5/5 throughout Psych affect normal Weight / BMI Weight Weight: 148 lb 12.8 oz Body Mass Index (BMI) 24.0 ABG / Lab / Microbiology Data Result Diagrams: 09/23/21 06:00 09/23/21 06:00 Laboratory: Laboratory Results - last 24 hr 09/23/21 06:00: WBC 5.9, RBC 3.97 L, Hgb 12.2, Hct 38.4, MCV 96.7, MCH 30.7, MCHC 31.8 L, RDW Std Deviation 53.9 H, RDW Coeff of Zachariah 15.2 H, Plt Count 281, MPV 11.8, Immature Gran % (Auto) 0.300, Neut % (Auto) 57.5, Lymph % (Auto) 28.1, [place] % (Auto) 11.2 H, Eos % (Auto) 2.6, Baso % (Auto) 0.3, Absolute Neuts (auto) 3.4, Absolute Lymphs (auto) 1.65, Nucleated RBC % 0 09/23/21 06:00: Sodium 139, Potassium 4.8, Chloride 113 H, Carbon Dioxide 23.0, Anion Gap 3 L, BUN 45 H, Creatinine 1.66 H, Estim Creat Clear Calc 27.41, Est GFR (MDRD) Af Amer 39 L, Est GFR (MDRD) Non-Af 32 L, BUN/Creatinine Ratio 27.1 H , Glucose 84, Calcium 8.6 Microbiology: Microbiology 09/21/21 19:15 Urine, Clean Catch Urine Culture - Preliminary Gram negative lucero D/C Instructions Discharge Diet: Low fat / Low cholesterol Discharge Activity: Return to Normal Activity Weight Bearing Status: Weight bearing as tolerated Call your doctor if you observe: Fever of 101 or Higher, Shortness of breath, Dizziness, Swelling in the ankles, Chest pain and Increased palpitations (irregular heartbeat) Meaningful Use Info Meaningful Use Diagnoses (Choose all that apply): None applicable Discharge Plan Admission Admit Date/Time: 09/22/21 09:18 Primary Reason for Your Visit: CAMERON on CKD Attending Provider: Lakisha Avila Primary Care Provider: Kristina Brandon Consulting Providers: Cuate Nicole Instructions Patient Instructions: Acute Kidney Failure Dc Discharge Orders/Prescriptions Prescriptions: Continued prochlorperazine maleate 5 mg tablet 5 - 10 mg PO Q6H PRN (Reason: Stomach Upset) lisinopril 20 mg tablet 20 mg PO BID fenofibrate nanocrystallized [Tricor] 145 mg tablet 145 mg PO DAILY famotidine [Pepcid] 20 mg tablet 20 mg PO DAILY folic acid 400 mcg tablet 0.4 mg PO DAILY albuterol sulfate 90 mcg/actuation HFA aerosol inhaler 2 puff inhalation Q4H PRN (Reason: shortness of breath or wheezing) propranolol 10 mg tablet 10 mg PO BID Qty: 60 3RF Discontinued sulfamethoxazole-trimethoprim 800-160 mg tablet 1 tab PO BID Label Comments: take 1 tablet by mouth twice a day Referrals / Follow Up: Kristina Brandon DO [Primary Care Provider] - Within 1 Week Disposition Disposition (needs filled in before D/C Order can be placed): Home, Self Care Charges/Coding Visit Charges Inpatient E&M: 91598 Disch Hosp
== END 2021-09-23 12:45 | disposition home or self-care (01) | DRG 683 ==
LOC: ED 18:43 → MS3 21:29
PROVIDERS: Admitting Provider Family Medicine; Emergency Provider Emergency Medicine; PCP Internal Medicine; Visit Provider Student in an Organized Health Care Education/Training Program
DX: N17.9 Acute kidney failure, unspecified (principal); N39.0 Urinary tract infection, site not specified; E78.5 Hyperlipidemia, unspecified; N18.32 Chronic kidney disease, stage 3b; I12.9 Hypertensive chronic kidney disease with stage 1 through stage 4 chronic kidney disease, or unspecified chronic kidney disease; K21.9 Gastro-esophageal reflux disease without esophagitis; G47.33 Obstructive sleep apnea (adult) (pediatric); F41.8 Other specified anxiety disorders; G25.0 Essential tremor; T36.8X5A Adverse effect of other systemic antibiotics, initial encounter; Z87.442 Personal history of urinary calculi; Z87.19 Personal history of other diseases of the digestive system; Z85.828 Personal history of other malignant neoplasm of skin; Z79.899 Other long term (current) drug therapy
CPT/HCPCS: 36415; 80048; 85025; 87086; 87088; 99284; J7030; A4216

== ENCOUNTER → 2021-09-30 | Outpatient (CLI) | payer MEDICARE, BC, SELFPAY ==
[2021-09-30 18:37] LABS: Anion Gap 8 (5-15); BUN 33 mg/dL (7-18); BUN/Creat Ratio 23.2 RATIO (10-20); Calcium,Total 9.5 mg/dL (8.5-10.1); Chloride 106 mmol/L (98-107); Creatinine, Serum 1.42 mg/dL (0.55-1.02); EST Glomerular Filtration Rate 38 mL/min (>60); Est Glom Filt Rate - Afr Amer 46 mL/min (>60); Glucose 91 mg/dL (74-106); Potassium 3.4 mmol/L (3.5-5.1); Sodium Level 140 mmol/L (136-145)
== END | disposition home or self-care (01) ==
LOC: MTLAB 14:44
PROVIDERS: PCP Internal Medicine; Referring Provider Internal Medicine; Visit Provider Internal Medicine
DX: N17.9 Acute kidney failure, unspecified (principal)
CPT/HCPCS: 36415; 80048

== ENCOUNTER → 2021-10-14 | Outpatient (CLI) | payer MEDICARE, BC, SELFPAY ==
[2021-10-14 12:41] LABS: Hematocrit 39.9 % (37-47); Hemoglobin 12.6 g/dL (12.0-15.0); Mean Corp Hgb Conc 31.6 g/dL (32-36); Mean Corpuscular Hgb 29.9 pg (27.0-32.0); Mean Corpuscular Volume 94.8 fL (81-99); Mean Platelet Vol. 12.4 fl (6.2-12.0); Platelet Count 302 K/mm3 (150-450); RBC Distribution Width CV 15.2 % (11.6-14.6); RBC Distribution Width SD 52.4 fl (35.1-43.9); Red Blood Count 4.21 M/mm3 (4.2-5.4); White Blood Count 5.8 K/mm3 (4.4-11.0)
[2021-10-14 13:11] LABS: Albumin, Serum 3.8 g/dL (3.2-5.0); BUN 34 mg/dL (7-18); BUN/Creat Ratio 24.3 RATIO (10-20); Calcium,Total 9.8 mg/dL (8.5-10.1); Chloride 106 mmol/L (98-107); EST Glomerular Filtration Rate 39 mL/min (>60); Est Glom Filt Rate - Afr Amer 47 mL/min (>60); Glucose 103 mg/dL (74-106); Phosphorus 2.9 mg/dL (2.5-4.9); Potassium 4.2 mmol/L (3.5-5.1); Sodium Level 141 mmol/L (136-145)
[2021-10-14 13:13] LABS: Vitamin D,25 Hydroxy 53.3 ng/mL
[2021-10-14 13:36] LABS: Protein, Urine (Random) < 6.0 mg/dL (<11.9)
[2021-10-15 16:09] LABS: Cytoplasmic Ab (C-ANCA) <1:20 titer (Neg:<1:20); PROEL- A/G Ratio 1.1 (0.7-1.7); PROEL- Albumin 3.8 g/dL (2.9-4.4); PROEL- Alpha-1 Globulin 0.3 g/dL (0.0-0.4); PROEL- Alpha-2 Globulin 0.7 g/dL (0.4-1.0); PROEL- Beta Globulin 1.3 g/dL (0.7-1.3); PROEL- Gamma Globulin 1.3 g/dL (0.4-1.8); PROEL- Globulin, Total 3.5 g/dL (2.2-3.9); PROEL- TOTAL PROTEIN 7.3 g/dL (6.0-8.5)
[2021-10-16 11:37] LABS: Anti-dsDNA Ab <1 IU/mL (0-9)
[2021-10-16 11:38] LABS: Complement C3 186 mg/dL (82-167); Perinuclear Ab (P-ANCA) <1:20 titer (Neg:<1:20)
== END | disposition home or self-care (01) ==
LOC: MTLAB 10:42
PROVIDERS: PCP Internal Medicine; Referring Provider Internal Medicine Nephrology; Visit Provider Internal Medicine Nephrology
DX: I12.9 Hypertensive chronic kidney disease with stage 1 through stage 4 chronic kidney disease, or unspecified chronic kidney disease (principal); N18.32 Chronic kidney disease, stage 3b; E55.9 Vitamin D deficiency, unspecified
CPT/HCPCS: 36415; 80069; 82306; 82570; 83970; 84156; 84165; 85027; 86160; 86225; 86256

== ENCOUNTER → 2021-11-03 | Outpatient (CLI) | payer MEDICARE, BC, SELFPAY ==
--- NOTE | 2021-11-03 14:15 | BI_ITS ---
MAMMOGRAPHY - BILATERAL SCREENING REASON FOR EXAM: Female, 76 years old. Routine annual screening examination. PERTINENT HISTORY: Non-contributory. TECHNIQUE: Digital bilateral breast peter (3D mammographic acquisition) in the CC and MLO projections. 2-D mediolateral oblique (MLO) and craniocaudad (CC) views of both breasts were obtained. CAD: Full Field Digital Mammography with Computer Added Detection was performed. COMPARISON: Comparison is made with prior study dated 07/31/2020. FINDINGS: Breast Composition: The breasts are heterogeneously dense, which may obscure small masses. There are no dominant masses or suspicious calcifications. Stable small benign-appearing bilateral axillary lymph nodes. No other significant abnormalities are identified. There has been no significant change since the prior study. BI/SCRN MAMM (CAD)W/PETER BILAT IMPRESSION: Stable bilateral screening mammogram. Yearly follow-up mammogram recommended. (A) ASSESSMENT CATEGORY: BIRADS Category 2: Benign. A letter regarding these results will be sent to the patient by the facility within 30 days. Approximately 10% of breast cancers are not detected by mammography. A normal mammogram should not delay biopsy of a clinically suspicious abnormality. [id number] Electronically Signed: Hemant Meneses MD at 9:26 EDT ,
--- NOTE | 2021-11-03 14:22 | BD_ITS ---
STUDY: DUAL ENERGY X-RAY ABSORPTIOMETRY / DXA REASON FOR EXAM: Female, 76 years old. [id number] TECHNIQUE: Bone Mineral Density (BMD) measurements of lumbar spine and right hip were obtained. COMPARISON: None. FINDINGS: Lumbar Spine (L1-L4): g/cm2 (0.951) / T-score (-0.3) / Z-score (2.1) Findings are suggestive of normal bone density with a low fracture risk. Right Femur Total: g/cm2 (0.819) / T-score (-1.0) / Z-score (0.8) Right Femoral Neck: g/cm2 (0.641) / T-score (-1.9) / Z-score (0.3) BD/Dexa Bone Density Study IMPRESSION: The patient is considered osteopenic as outlined below according to World [place] Organization (WHO) criteria with a moderate fracture risk. Reference Information: The T-score is the number of standard deviations above or below the standard which is normal for young adults at their peak bone mineral density. The World Health Organization (WHO) interprets the T-scores as follows: Above -1 Normal bone density Between -1 and -2.5 Osteopenia Equal to / or below -2.5 Osteoporosis As a practical clinical guideline, osteopenia may be graded as follows: Mild -1 through -1.5 Moderate -1.6 through -2.0 Severe -2.1 through -2.4 The Z-score is the number of standard deviations above or below age-matched controls. A Z-score of less than -1.5 would be considered abnormal. References: 1. NIH Osteoporosis and Related Bone Diseases www osteo.org 2. International Society for Clinical Densitometry www iscd.org 3. National Osteoporosis Foundation www nof.org Electronically Signed: Hemant Meneses MD at 14:53 EDT ,
== END | disposition home or self-care (01) ==
LOC: OPBD 14:14
PROVIDERS: PCP Internal Medicine; Visit Provider Internal Medicine
DX: Z78.0 Asymptomatic menopausal state (principal); Z12.31 Encounter for screening mammogram for malignant neoplasm of breast
CPT/HCPCS: 77063; 77067; 77080

== ENCOUNTER 2022-02-07 09:27 | Emergency (ER) | payer MEDICARE, BC, SELFPAY ==
[2022-02-07 09:28] VITALS: BP 170/89; PULSE 75; RESP 16; TEMP 36.3; O2SAT 96; BMI 25.3
[2022-02-07 09:32] VITALS: BP 156/77; PULSE 65; RESP 18; TEMP 36.7; O2SAT 94
--- NOTE | 2022-02-07 09:56 | EX.ED.VIS.UR ---
HPI HPI - URI History of Present Illness Chief Complaint: Nosebleed Informant: patient Onset/Context/Timing Onset: Weeks Context: Gradual Onset Timing: Intermittent Current Severity: Mild Maximum Severity: Mild Worsened by: Not Worsened By Swallowing, Eating Solids or Drinking Liquids Associated Symptoms Associated Symptoms: Positive for Nasal Congestion Narrative Narrative: 76-year-old female history of ITP recently had her blood work checked it was fine. Also history of prediabetes and chronic kidney disease stage III. Says for the last 3 weeks she has had intermittent nosebleeds. Nose that she has scabs inside her nose and at times she does pick at those. Had URI symptoms before this started. She is on no blood thinners does not use oxygen but does wear CPAP at night. She has had nosebleeds before. Denies any melena or hematuria. No easy bruising. Prior similar symptoms: Yes Recent Illness/Hospitalization: No ROS ROS ED ROS Narrative Recent URI. Nosebleeds. Review of Systems ROS Unobtainable: Denies due to encephalopathy Constitutional Constitutional ED: Denies chills or fever(s) Eyes Eyes: Denies blurry vision ENT ENT ED: Reports rhinorrhea; Denies ear pain or sore throat Cardiovascular Cardiovascular: Denies chest pain or palpitations Respiratory/Chest Respiratory/Chest: Reports cough; Denies dyspnea Gastrointestinal Gastrointestinal: Denies abdominal pain, constipation, diarrhea, melena, nausea or vomiting Genitourinary Genitourinary ED: Denies dysuria or hematuria Musculoskeletal Musculoskeletal: Denies arthralgias Integumentary Denies abscess Neurologic Neurologic: Denies headache(s) Psychiatric Psychiatric: Denies anxiety or depression Endocrine Endocrinology: Denies cold intolerance Hematologic/Lymphatic Hematologic/Lymphatic: Denies easy bleeding, easy bruising or lymphadenopathy Allergic/Immunologic Allergic/Immunologic ED: Denies mouth swelling, tongue swelling or urticaria PFSH [facility] Medical History Anal condyloma Asthma Balance disorder Basal cell carcinoma Benign joint hypermobility Cardiomegaly CKD stage G3b/A1, GFR 30-44 and albumin creatinine ratio <30 mg/g Coarse tremors Constipation COPD (chronic obstructive pulmonary disease) Decreased GFR Depression with anxiety Diarrhea Enchondroma Essential tremor GERD (gastroesophageal reflux disease) History of diverticulitis History of kidney stones Hyperlipemia Hypertension Idiopathic thrombocytopenic purpura (ITP) Impaired fasting glucose LUQ pain Nausea Nocturnal hypoxia CYNTHIA (obstructive sleep apnea) Osteopenia Pancreatic divisum Pneumonia Pre-diabetes Rectal abnormality Renal cyst Rosacea SOB (shortness of breath) Vitamin D deficiency Home Medications famotidine 20 mg tablet (Pepcid) 20 mg PO DAILY 04/09/21 [History Last Taken Unknown] fenofibrate nanocrystallized 145 mg tablet (Tricor) 145 mg PO DAILY 04/09/21 [History Last Taken Unknown] folic acid 400 mcg tablet 0.4 mg PO DAILY 04/09/21 [History Last Taken Unknown] lisinopril 20 mg tablet 20 mg PO BID 04/09/21 [History Last Taken Unknown] prochlorperazine maleate 5 mg tablet 5 - 10 mg PO Q6H PRN Stomach Upset 04/09/21 [History Last Taken Unknown] albuterol sulfate 90 mcg/actuation aerosol inhaler 2 puff inhalation Q4H PRN shortness of breath or wheezing 07/16/21 [History Last Taken Unknown] propranolol 10 mg tablet 20 mg PO BID #120 tabs 10/20/21 [Rx Last Taken Unknown] potassium chloride 10 mEq tablet,extended release 10 meq PO QODAY 01/07/22 [History Last Taken Unknown] sulfamethoxazole 800 mg-trimethoprim 160 mg tablet (Bactrim DS) 1 tab PO BID 3 days #6 tabs 02/07/22 [Rx Last Taken Unknown] Allergy/AdvReac Type Severity Reaction Status Date / Time primidone Allergy Severe Anaphylaxis Verified 02/07/22 09:30 montelukast Allergy Intermediate Other Verified 02/07/22 09:30 alcohol Allergy Unknown Rash Verified 02/07/22 09:30 [From Mastisol Adhesive] beef derived (bovine) Allergy Unknown Unknown Verified 02/07/22 09:30 gum mastic Allergy Unknown Rash Verified 02/07/22 09:30 [From Mastisol Adhesive] methyl salicylate Allergy Unknown Rash Verified 02/07/22 09:30 [From Mastisol Adhesive] mold Allergy Unknown Difficulty Verified 02/07/22 09:30 Breathing/Wheezing penicillin V Allergy Unknown Rash Verified 02/07/22 09:30 storax Allergy Unknown Rash Verified 02/07/22 09:30 [From Mastisol Adhesive] Nrtesmo-CIV-UpC Reductase Allergy NEEDS Verified 02/07/22 09:30 Inhibitor FOLLOW-UP Beta-Blockers AdvReac Other Verified 02/07/22 09:30 (Beta-Adrenergic Bloc Family History Father Cancer Diabetes CVA (cerebral vascular accident) Ulcer Grandfather Cancer Mother Hypertension CVA (cerebral vascular accident) Thyroid disorder Brother Hypertension Sister Hypertension Kidney disease Autoimmune disease Surgical History History of bladder surgery History of cataract surgery History of section History of cholecystectomy History of colon surgery History of D&C History of hip replacement History of hysterectomy History of kidney surgery History of left hip replacement History of splenectomy Social History Smoking Status: Never smoker Electronic Cigarette Use: not used second hand exposure: No alcohol intake: never substance use type: does not use what type of physical activity do you participate in: none tiara/protestant: Restoration seatbelt use: always EXAM Physical Exam Narrative Exam Narrative: Well-appearing 76-year-old female no acute distress. Vital signs stable afebrile. H EENT exam no active bleeding. Scabs in both anterior medial nasal septum. Currently no active bleeding or clots. Obviously signs of anterior nosebleed. Posterior pharynx normal no blood. Lungs clear. Heart regular rhythm. Abdomen soft nontender. Moving all 4 extremities. Otherwise exam unremarkable. Const Vital Signs: 02/07/22 09:28 02/07/22 09:32 Temperature 97.3 F L 98.1 F Temperature Source Temporal Temporal Pulse Rate 75 65 Respiratory Rate 16 18 Blood Pressure 170/89 H 156/77 H Blood Pressure Mean 116 103 Pulse Ox 96 94 Oxygen Delivery Method Room Air Room Air Positive well nourished and well developed; Negative for obese, cachectic or contractures General Appearance ED: well developed and NAD; Negative for cachectic, contractures, cyanotic, diaphoretic or pallor Nutritional Appearance: Negative for cachectic or obese HEENT Reports moist mucous membranes; Denies dry mucous membranes HEENT Narrative: Scabs both kiesselbachs plexus on the medial septum proximally. No active bleeding currently. Negative for normocephalic or atraumatic Face and Sinus: Negative for sinus tenderness Mouth ED: No dry mucous membranes Mouth: No dry mucous membranes Teeth and Gingiva: Negative for caries Throat: posterior oropharynx normal; Negative for tonsils abnormal or posterior oropharynx abnormal Eyes PERRL and EOMs intact bilaterally General Eye ED: Negative for pale conjunctiva or scleral icterus Neck no lymphadenopathy, supple, no meningeal signs and no JVD General: Negative for anterior neck swelling or lymphadenopathy Resp normal respiratory effort and clear to auscultation bilaterally Effort and Inspection: Negative for retractions Auscultation: Negative for rales or rhonchi Cardio S1 normal heart sound, S2 normal heart sound and no murmurs Rate: regular rate Rhythm: regular rhythm GI non-tender, non-distended and no masses Inspection: Negative for abdominal distention Auscultation: normoactive bowel sounds Palpation: soft; Negative for tender, guarding or hepatomegaly Back/Spine no CVA tenderness and normal ROM General Back: Negative for CVA tenderness Cervical Spine: Negative for cervical spine tenderness Thoracic Spine / Upper Back: Negative for thoracic spinal tenderness Lumbar Spine / Lower Back: Negative for lumbar spinal tenderness Sacrum: Negative for tenderness Extremity normal to inspection and full ROM General Extremety ED: Negative for cyanosis General Extremity: Negative for cyanosis Neuro oriented x3 and CN's II-XII intact bilaterally Sensorium / Orientation: alert, oriented to person, oriented to place and oriented to time; Negative for orientation impaired, lethargic or stuporous Motor Exam: strength 5/5 throughout Psych mental status grossly normal Appearance: Negative for other Attitude: No agitated Mood & Affect: Negative for depressed, anxious or tearful Skin General Skin Exam: Negative for jaundice or pallor Lesions: no lesions Rashes: no rashes Trauma: Negative for abrasion or laceration MDM MDM MDM Narrative Medical decision making narrative: Nosebleeds of bilateral nasal scabs. Patient was instructed not to traumatize her nose. I had planned to place bilateral Merisel packs. These are on backorder. Patient is very small nares did not want balloon packs placed. I do think those are necessary either. We used cotton balls with antibiotic ointment on them. She will remove those in 3 days. She will pull those out in 3 days. She will be placed on antibiotic but she cannot do penicillin due to prior allergy of hives. Once she pulls a pack in 3 days she can either follow-up with ENT or use Vaseline or antibiotic ointment to help moisturize the area and hopefully heal the scabs. Discharge Plan Triage Chief Complaint: Nosebleed ED Provider: Arik Rooney Dx/Rx/DC Orders Clinical Impression: Acute anterior epistaxis, History of ITP, History of chronic kidney disease Instructions: ED Epistaxis (Adult) Prescriptions: New sulfamethoxazole-trimethoprim [Bactrim DS] 800-160 mg tablet 1 tab PO BID 3 Days Qty: 6 0RF No Action prochlorperazine maleate 5 mg tablet 5 - 10 mg PO Q6H PRN (Reason: Stomach Upset) lisinopril 20 mg tablet 20 mg PO BID fenofibrate nanocrystallized [Tricor] 145 mg tablet 145 mg PO DAILY famotidine [Pepcid] 20 mg tablet 20 mg PO DAILY folic acid 400 mcg tablet 0.4 mg PO DAILY albuterol sulfate 90 mcg/actuation HFA aerosol inhaler 2 puff inhalation Q4H PRN (Reason: shortness of breath or wheezing) propranolol 10 mg tablet 20 mg PO BID Qty: 120 4RF Rx Instructions: Take 2 tablets PO BID potassium chloride 10 mEq tablet extended release 10 meq PO QODAY Primary Care Provider: Kristina Brandon Referrals: Clayton Zepeda MD [Med Staff - Active Staff] - 3-5 Days Kristina Brandon DO [Primary Care Provider] - As Needed Activity Restrictions/Additional Instructions: Do not pick at the scabs that will cause more bleeding. Pull the cotton balls out 3 to 4 days. Either Tuesday night or Tuesday. Use antibiotic ointment or Vaseline to keep your nose moist once the packing is come out. If it rebleeds hold direct pressure 2030 minutes if unable to stop return. Follow-up with the ENT Drs. Clayton Silverio or Vikram Larsen. The antibiotic Bactrim 1 pill twice a day for 3 days till the packing is removed. This will prevent a sinus infection. Disposition Disposition: Home, Self Care
[2022-02-07 10:43] VITALS: BP 160/70; PULSE 70; RESP 14; O2SAT 97
== END 2022-02-07 10:44 | disposition home or self-care (01) ==
PROVIDERS: Emergency Provider Emergency Medicine; PCP Internal Medicine; Visit Provider Emergency Medicine
DX: R04.0 Epistaxis (principal); J44.9 Chronic obstructive pulmonary disease, unspecified; N18.30 Chronic kidney disease, stage 3 unspecified; R09.81 Nasal congestion; E78.5 Hyperlipidemia, unspecified; I12.9 Hypertensive chronic kidney disease with stage 1 through stage 4 chronic kidney disease, or unspecified chronic kidney disease; G47.33 Obstructive sleep apnea (adult) (pediatric)
CPT/HCPCS: 99282

== ENCOUNTER 2022-02-20 11:52 | Emergency (ER) | payer MEDICARE, BC, SELFPAY ==
--- NOTE | 2022-02-20 11:55 | NURSING ---
NO OLD EKGS
[2022-02-20 11:58] VITALS: BP 171/81; PULSE 66; RESP 15; TEMP 36.5; O2SAT 98; BMI 25.0
--- NOTE | 2022-02-20 12:05 | RAD_ITS ---
STUDY: X-RAY CHEST REASON FOR EXAM: Female, 76 years old. Chest pain TECHNIQUE: Single AP portable view of the chest. COMPARISON: March 18, 2021 x-ray FINDINGS: There is persistent minimal linear density in the lung bases. There is no demonstrated pleural abnormality. There is borderline cardiomegaly. Normal mediastinum and ge. Normal visualized pulmonary arteries. Normal visualized aortic arch and descending thoracic aorta. Normal visualized thoracic spine. Normal visualized ribs, clavicles, and shoulders. There is no demonstrated abnormality of the visualized soft tissue structures of the upper abdomen. RAD/Chest 1 View (Portable) IMPRESSION: Persistent and/or recurrent atelectasis and/or scarring at the lung bases no visualized focal infiltrate. Electronically Signed: Mima Pickering MD at 13:10 EST ,
[2022-02-20 12:14] VITALS: O2SAT 98
[2022-02-20 12:16] LABS: Absolute Lymphocyte Count 2.08 X10^3/uL (0.83-4.51); Absolute Neutrophil Count 6.4 X10^3/uL (2.0-7.7); Basophil# 0.01 X10^3/uL; Basophil% 0.1 % (0-1); Eosinophil# 0.23 X10^3/uL; Eosinophils% 2.4 % (0-5); Hematocrit 41.7 % (37-47); Hemoglobin 13.3 g/dL (12.0-15.0); Lymphocyte # 2.08 X10^3/ul (0.83-4.51); Lymphocyte % 21.6 % (19-41); Mean Corp Hgb Conc 31.9 g/dL (32-36); Mean Corpuscular Volume 93.9 fL (81-99); Mean Platelet Vol. 11.3 fl (6.2-12.0); Monocyte# 0.93 X10^3/uL; Monocyte% 9.7 % (0-10); NRBC Flagged by Analyzer 0 % (0-5); Neutrophil # 6.35 X10^3/uL (2.7-7.7); Neutrophil % 65.9 % (47-70); Platelet Count 300 K/mm3 (150-450); RBC Distribution Width CV 14.6 % (11.6-14.6); RBC Distribution Width SD 50.6 fl (35.1-43.9); Red Blood Count 4.44 M/mm3 (4.2-5.4); White Blood Count 9.6 K/mm3 (4.4-11.0)
[2022-02-20 12:33] LABS: Anion Gap 6 (5-15); BUN 39 mg/dL (7-18); BUN/Creat Ratio 25.5 RATIO (10-20); Calcium,Total 9.4 mg/dL (8.5-10.1); Chloride 107 mmol/L (98-107); Creatinine, Serum 1.53 mg/dL (0.55-1.02); EST Glomerular Filtration Rate 35 mL/min (>60); Est Glom Filt Rate - Afr Amer 42 mL/min (>60); Estimated Creatinine Clearance 29.28 ml/min; Glucose 99 mg/dL (74-106); Potassium 4.3 mmol/L (3.5-5.1); Sodium Level 139 mmol/L (136-145); Troponin-I HS (w/2H Reflex) 6 pg/mL (3.0-54.0)
--- NOTE | 2022-02-20 12:35 | ED.VIS.CHEST ---
HPI History of Present Illness Chief Complaint: Chest Pain Narrative Narrative: 76-year-old female presenting with chest pain. She states she has had this on and off throughout the last 7 days. She describes it as pressure. She does not get lightheaded, weak, diaphoretic. She states she feels short of breath but this is chronic and unchanged. She states her primary care physician told her she had COPD. She states has never been a smoker. Her resource management planner told her she has asthma. She does not feel that she has been wheezing. She denies fever, chills, myalgias. She has a cough with clear sputum. She does not feel unwell. Today her chest pressure has been present since 6 AM when she woke up without any other symptoms. [facility] Medical History Anal condyloma Asthma Balance disorder Basal cell carcinoma Benign joint hypermobility Cardiomegaly CKD stage G3b/A1, GFR 30-44 and albumin creatinine ratio <30 mg/g Coarse tremors Constipation COPD (chronic obstructive pulmonary disease) Decreased GFR Depression with anxiety Diarrhea Enchondroma Essential tremor GERD (gastroesophageal reflux disease) History of diverticulitis History of kidney stones Hyperlipemia Hypertension Idiopathic thrombocytopenic purpura (ITP) Impaired fasting glucose LUQ pain Nausea Nocturnal hypoxia CYNTHIA (obstructive sleep apnea) Osteopenia Pancreatic divisum Pneumonia Pre-diabetes Rectal abnormality Renal cyst Rosacea SOB (shortness of breath) Vitamin D deficiency Home Medications famotidine 20 mg tablet (Pepcid) 20 mg PO DAILY 04/09/21 [History Last Taken Unknown] fenofibrate nanocrystallized 145 mg tablet (Tricor) 145 mg PO DAILY 04/09/21 [History Last Taken Unknown] folic acid 400 mcg tablet 0.4 mg PO DAILY 04/09/21 [History Last Taken Unknown] lisinopril 20 mg tablet 20 mg PO BID 04/09/21 [History Last Taken Unknown] prochlorperazine maleate 5 mg tablet 5 - 10 mg PO Q6H PRN Stomach Upset 04/09/21 [History Last Taken Unknown] albuterol sulfate 90 mcg/actuation aerosol inhaler 2 puff inhalation Q4H PRN shortness of breath or wheezing 07/16/21 [History Last Taken Unknown] propranolol 10 mg tablet 20 mg PO BID #120 tabs 10/20/21 [Rx Last Taken Unknown] potassium chloride 10 mEq tablet,extended release 10 meq PO QODAY 01/07/22 [History Last Taken Unknown] sulfamethoxazole 800 mg-trimethoprim 160 mg tablet (Bactrim DS) 1 tab PO BID 3 days #6 tabs 02/07/22 [Rx Last Taken Unknown] Allergy/AdvReac Type Severity Reaction Status Date / Time primidone Allergy Severe Anaphylaxis Verified 02/20/22 11:52 montelukast Allergy Intermediate Other Verified 02/20/22 11:52 alcohol Allergy Unknown Rash Verified 02/20/22 11:52 [From Mastisol Adhesive] beef derived (bovine) Allergy Unknown Unknown Verified 02/20/22 11:52 gum mastic Allergy Unknown Rash Verified 02/20/22 11:52 [From Mastisol Adhesive] methyl salicylate Allergy Unknown Rash Verified 02/20/22 11:52 [From Mastisol Adhesive] mold Allergy Unknown Difficulty Verified 02/20/22 11:52 Breathing/Wheezing penicillin V Allergy Unknown Rash Verified 02/20/22 11:52 storax Allergy Unknown Rash Verified 02/20/22 11:52 [From Mastisol Adhesive] [id number]-[id number] Reductase Allergy NEEDS Verified 02/20/22 11:52 Inhibitor FOLLOW-UP Beta-Blockers AdvReac Other Verified 02/20/22 11:52 (Beta-Adrenergic Bloc Family History Father Cancer Diabetes CVA (cerebral vascular accident) Ulcer Grandfather Cancer Mother Hypertension CVA (cerebral vascular accident) Thyroid disorder Brother Hypertension Sister Hypertension Kidney disease Autoimmune disease Surgical History History of bladder surgery History of cataract surgery History of section History of cholecystectomy History of colon surgery History of D&C History of hip replacement History of hysterectomy History of kidney surgery History of left hip replacement History of splenectomy Social History Smoking Status: Never smoker Electronic Cigarette Use: not used second hand exposure: No alcohol intake: never substance use type: does not use what type of physical activity do you participate in: none tiara/christian: Congregation seatbelt use: always ROS ROS ED Constitutional Constitutional ED: Denies chills or sweats Eyes Eyes: Denies blurry vision or change in vision ENT ENT ED: Denies rhinorrhea or sore throat Cardiovascular Cardiovascular: Reports as per HPI Respiratory/Chest Respiratory/Chest: Reports cough and dyspnea Gastrointestinal Gastrointestinal: Denies abdominal pain or constipation Genitourinary Genitourinary ED: Denies dysuria or hematuria Musculoskeletal Musculoskeletal: Denies arthralgias or back pain Integumentary Denies abscess Neurologic Neurologic: Denies headache(s) or paresthesias Psychiatric Psychiatric: Denies anxiety or depression EXAM Physical Exam Const Vital Signs: 02/20/22 11:58 02/20/22 12:14 Temperature 97.7 F L Temperature Source Temporal Pulse Rate 66 Respiratory Rate 15 Blood Pressure 171/81 H Blood Pressure Mean 111 Pulse Ox 98 98 Oxygen Delivery Method Room Air Room Air Positive well nourished General Appearance ED: NAD; Negative for pallor HEENT Reports moist mucous membranes Eyes PERRL and EOMs intact bilaterally Chest Wall inspection of chest normal Resp normal respiratory effort and clear to auscultation bilaterally Auscultation: Negative for rales, rhonchi or wheezes Cardio regular rate and regular rhythm GI normal to inspection, nondistended, normoactive bowel sounds Extremity normal to inspection Neuro oriented x3 and CN's II-XII intact bilaterally Sensorium / Orientation: awake and alert Motor Exam: strength 5/5 throughout Psych mental status grossly normal Skin no rashes or lesions noted General Skin Exam: Negative for jaundice or pallor Heart Score History: Slightly/Non-Suspicious ECG: Normal Age: >/= 65 years Risk Factors: 1 or 2 Risk Factors Troponin: </= Normal Limit Score: 3 MDM MDM MDM Narrative Medical decision making narrative: 76-year-old female presenting with chest pressure which has been present for about 6 hours today. It has been intermittent throughout the week. Patient is PERC negative. EKG on my interpretation is normal sinus rhythm with a ventricular rate of 67 bpm without sign of ischemic change. CBC and BMP are unremarkable. High-sensitivity troponin. Chest x-ray my interpretation shows no acute cardiopulmonary process and radiologist interpretation agrees given that this has been going on for a week with constant pain for 6 hours I do not believe this is cardiac and I do not believe she needs a delta troponin. Vital signs are stable and she is afebrile. Her lungs are clear to auscultation. I think she is stable for discharge home with follow-up with her primary care physician. Impression: 1. Dyspnea 2. Chest pain Lab Data Attestation: I reviewed the patient's lab results. Labs: Laboratory Results - last 24 hr 02/20/22 02/20/22 12:08 12:08 WBC 9.6 RBC 4.44 Hgb 13.3 Hct 41.7 MCV 93.9 MCH 30.0 MCHC 31.9 L RDW Std Deviation 50.6 H RDW Coeff of Zachariah 14.6 Plt Count 300 MPV 11.3 Immature Gran % (Auto) 0.300 Neut % (Auto) 65.9 Lymph % (Auto) 21.6 [place] % (Auto) 9.7 Eos % (Auto) 2.4 Baso % (Auto) 0.1 Absolute Neuts (auto) 6.4 Absolute Lymphs (auto) 2.08 Nucleated RBC % 0 Sodium 139 Potassium 4.3 Chloride 107 Carbon Dioxide 26.0 Anion Gap 6 BUN 39 H Creatinine 1.53 H Estim Creat Clear Calc 29.28 Est GFR (MDRD) Af Amer 42 L Est GFR (MDRD) Non-Af 35 L BUN/Creatinine Ratio 25.5 H Glucose 99 Calcium 9.4 Troponin I High Sens 6 Radiography Diagnostic Testing: Clinical Impression(s) from Imaging Studies Chest X-Ray 02/20/22 12:05 IMPRESSION: Persistent and/or recurrent atelectasis and/or scarring at the lung bases no visualized focal infiltrate. Electronically Signed: Mima Pickering MD at 13:10 EST Reading Location ID and State: [facility] / [place] Tel , Service support , Discharge Plan Triage Chief Complaint: Chest Pain ED Provider: Arnoldo Monae Dx/Rx/DC Orders Instructions: ED Chest Pain, Uncertain Cause Prescriptions: No Action prochlorperazine maleate 5 mg tablet 5 - 10 mg PO Q6H PRN (Reason: Stomach Upset) lisinopril 20 mg tablet 20 mg PO BID fenofibrate nanocrystallized [Tricor] 145 mg tablet 145 mg PO DAILY famotidine [Pepcid] 20 mg tablet 20 mg PO DAILY folic acid 400 mcg tablet 0.4 mg PO DAILY albuterol sulfate 90 mcg/actuation HFA aerosol inhaler 2 puff inhalation Q4H PRN (Reason: shortness of breath or wheezing) propranolol 10 mg tablet 20 mg PO BID Qty: 120 4RF Rx Instructions: Take 2 tablets PO BID potassium chloride 10 mEq tablet extended release 10 meq PO QODAY sulfamethoxazole-trimethoprim [Bactrim DS] 800-160 mg tablet 1 tab PO BID 3 Days Qty: 6 0RF Primary Care Provider: Kristina Brandon Referrals: Kristina Brandon DO [Primary Care Provider] - Disposition Disposition: Home, Self Care
[2022-02-20 13:42] VITALS: BP 122/83; PULSE 69; RESP 15; O2SAT 98
[2022-02-20 14:12] LABS: Reflex Troponin-HS? (from REC) Y
== END 2022-02-20 13:42 | disposition home or self-care (01) ==
PROVIDERS: Emergency Provider Student in an Organized Health Care Education/Training Program; PCP Internal Medicine; Visit Provider Student in an Organized Health Care Education/Training Program
DX: R06.00 Dyspnea, unspecified (principal); R07.9 Chest pain, unspecified; G47.33 Obstructive sleep apnea (adult) (pediatric)
CPT/HCPCS: 71045; 80048; 84484; 85025; 93005; 99284; A4216

== ENCOUNTER → 2022-03-19 | Outpatient (CLI) | payer MEDICARE, BC, SELFPAY ==
[2022-03-19 15:58] LABS: Absolute Lymphocyte Count 2.35 X10^3/uL (0.83-4.51); Absolute Neutrophil Count 4.5 X10^3/uL (2.0-7.7); Basophil# 0.02 X10^3/uL; Basophil% 0.2 % (0-1); Eosinophil# 0.26 X10^3/uL; Eosinophils% 3.2 % (0-5); Hematocrit 39.1 % (37-47); Hemoglobin 12.8 g/dL (12.0-15.0); Lymphocyte # 2.35 X10^3/ul (0.83-4.51); Lymphocyte % 29.2 % (19-41); Mean Corp Hgb Conc 32.7 g/dL (32-36); Mean Corpuscular Hgb 30.8 pg (27.0-32.0); Mean Corpuscular Volume 94.2 fL (81-99); Mean Platelet Vol. 12.2 fl (6.2-12.0); Monocyte# 0.92 X10^3/uL; Monocyte% 11.4 % (0-10); NRBC Flagged by Analyzer 0 % (0-5); Neutrophil % 55.9 % (47-70); Platelet Count 269 K/mm3 (150-450); RBC Distribution Width CV 14.9 % (11.6-14.6); RBC Distribution Width SD 51.7 fl (35.1-43.9); Red Blood Count 4.15 M/mm3 (4.2-5.4); White Blood Count 8.1 K/mm3 (4.4-11.0)
== END | disposition home or self-care (01) ==
LOC: LABSPEC 15:17
PROVIDERS: PCP Internal Medicine; Visit Provider Nurse Practitioner Family
DX: D69.3 Immune thrombocytopenic purpura (principal)
CPT/HCPCS: 85025

== ENCOUNTER → 2022-03-26 | Outpatient (CLI) | payer MEDICARE, BC, SELFPAY ==
[2022-03-26 14:06] LABS: Anion Gap 8 (5-15); BUN 45 mg/dL (7-18); BUN/Creat Ratio 29.2 RATIO (10-20); Calcium,Total 9.6 mg/dL (8.5-10.1); Chloride 104 mmol/L (98-107); Creatinine, Serum 1.54 mg/dL (0.55-1.02); EST Glomerular Filtration Rate 35 mL/min (>60); Est Glom Filt Rate - Afr Amer 42 mL/min (>60); Glucose 91 mg/dL (74-106); Potassium 4.5 mmol/L (3.5-5.1); Sodium Level 135 mmol/L (136-145)
== END | disposition home or self-care (01) ==
LOC: MTLAB 11:49
PROVIDERS: PCP Internal Medicine; Referring Provider Internal Medicine Nephrology; Visit Provider Internal Medicine Nephrology
DX: N18.32 Chronic kidney disease, stage 3b (principal)
CPT/HCPCS: 36415; 80048; 82570; 84156

== ENCOUNTER 2022-10-28 12:00 | Outpatient (RCR) | payer MEDICARE, BC, SELFPAY ==
--- NOTE | 2022-10-19 16:22 | HP.PTEVAL ---
Patient's Visit Information Visit Information Visit Information: SARA LÓPEZ is a 77 year old F referred to Physical Therapy by Dr. Kristina Brandon DO with a diagnosis of L shoulder pain. Date of Evaluation: 10/19/22 Physical Therapist: Matt Asif, DPT, OCS, CSCS Visit Plan Frequency: 2x /Week Duration: 4-6 Weeks Plan: 2x/week for 3-6 weeks for 1. MH and STM to L UT 2. strength posture and L RC to HEP 3. g-h mobs L shoulder grade 3-4 and distraction. Subjective Subjective: I had tons of PT in [place]. Sylvia had numerous falls due to tremors. L shoulder and arm lately has started hurting. X ray shows nothing. Recommended PT. Sees Dr. Dang for trigger shots in the neck whcih may be wearing off. This is for tremors. This pain is worse than usual but not sure why. No injury really. Moved from [place] in 2020 and it is colder summer than normal. No falls in a while. Pain is worse for last two weeks. comfortable at rest. Reaching up hurts the most. Ran into wall today, no falls in 3 years since her TARA L. Lying in bed can hurt. awakens sometimes. roll on left side is worse It is tender to touch. No numbness or tingling UE. Not employed. Basic ADLs are getting done, avoids cleaning but due to tremors more than pain. Ex; signed up at but not working at it yet. Hobbies: Takes care of with Alzheimers, lots of cognitive. She has to drive today. 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 Pain L shoulder: Pain Intensity (Out of 10): 0 Pain Intensity Range: 0 and 8 Comment: worse with movement Objective Objective: Slightly neuropathic gait, some tremors while sitting in head/neck. L scapula elevated vs R , B scapula forward and protracted. tender to touch supra and infraspinatus tendons moderatley, min at g-h joint ant and posterior, min in UT L. + HK and neer tests, - sulcus, - ext rotation lag, - drop arm. all on L. Full aROM of B UE but end range of er and elevation is painful on L. Feels tight as does IR. elbow and wrist WFL ROM. Cervical AROM ext 30 and L rotation 45 and R rotation 55, no shoulder pain. tightness in L UT with L rotation. - c/s compression test. strength UE 3+ elevation B and er L with pain. 4- R. Bi and tri and wrist 4- without pain. reflexes 1./3 bi and tri Sensation UE WNL to gross light touch. Walks safely and I into PT with slight wide TARA, Trasnfers are I. Balance/Special Test Scores Quick DASH Score: 63.6350 Goals Goal 1:: Full aROM L shoulder without pain Goal Time Frame: 4-6 Weeks Goal 2:: Pt feel pain 1/10 at worst and 75% better Goal Time Frame: 4-6 Weeks Goal 3:: I appropr HEP to minimize future problems Goal Time Frame: 4-6 Weeks Goal 4:: quick dash score 16 or better Goal Time Frame: 4-6 Weeks Rehabilitation Potential Physical Therapy Diagnosis: Likely impingement L shoulder tendonitis. Rehabilitation Potential: Fair Anticipated Interventions Patient/Client Instruction: Educate patient on: Condition and Plan of Care For the Purpose of:: To decrease pain, To increase ROM, To improve nutrient delivery to tissue, To improve muscle performance and motor function and To increase tolerance to activity/condition/position Therapeutic Exercise to Include: Strength training, Postural training, Flexibilty training, Passive ROM, Active ROM and Scapular Strength/Stabilization For the Purpose of:: To decrease pain, To increase ROM, To improve nutrient delivery to tissue, To improve muscle performance and motor function and To increase tolerance to activity/condition/position Manual Therapy Techniques to Include: Mobilization, Passive ROM and Soft tissue mobilization For the Purpose of:: To decrease pain and To increase ROM Thermo therapy (hot pack): Yes (UT) For the Purpose of:: To decrease pain and To decrease swelling/inflammation Text: Thank you for the opportunity to evaluate your patient. For Medicare and Medicare HMO plans, please review the plan of care and approve it. It will need to be FAXED BACK to us at [phone] for Medicare purposes. For Medicare only, by signing this I certify the plan of care. Please let me know if there are questions or concerns regarding this plan of care. Physician Signature: Date:
--- NOTE | 2022-12-02 15:40 | HP.PT.NRP ---
Patient Information Patient Information: SARA LÓPEZ was seen in my office for initial evaluation on 10/19/22. The following Plan of Care was established for this patient: POC Established Initial Frequency: 2x /Week Initial Duration: 4-6 Weeks Anticipated Interventions Patient/Client Instruction: Educate patient on: Condition and Plan of Care For the Purpose of:: To decrease pain, To increase ROM, To improve nutrient delivery to tissue, To improve muscle performance and motor function and To increase tolerance to activity/condition/position Therapeutic Exercise to Include: Strength training, Postural training, Flexibilty training, Passive ROM, Active ROM and Scapular Strength/Stabilization For the Purpose of:: To decrease pain, To increase ROM, To improve nutrient delivery to tissue, To improve muscle performance and motor function and To increase tolerance to activity/condition/position Manual Therapy Techniques to Include: Mobilization, Passive ROM and Soft tissue mobilization For the Purpose of:: To decrease pain and To increase ROM Thermo therapy (hot pack): Yes (UT) For the Purpose of:: To decrease pain and To decrease swelling/inflammation Last Seen Last Seen: This patient was last seen in our office 10/19/22. Pertinent comments regarding their Physical therapy will appear below: Pt seen one visit and POC established but patient did not schedule or attend. At this point, it has been over 6 weeks and I will discontinue due to nonattendance. At this point I will be discontinuing this patient from physical therapy. I would be happy to see this patient again in the future if found appropriate by the physician. Thank you! Matt Asif, DPT, OCS, CSCS Balance/Gait/Functional tests Balance/Special Test Scores Quick DASH Score: 63.6366
== END 2022-10-28 19:00 | disposition home or self-care (01) ==
LOC: PT 12:00
PROVIDERS: PCP Internal Medicine; Referring Provider Internal Medicine; Visit Provider Internal Medicine
DX: M25.512 Pain in left shoulder (principal)
CPT/HCPCS: 97110; 97140; 97161

== ENCOUNTER → 2022-11-16 | Outpatient (CLI) | payer MEDICARE, BC, SELFPAY ==
--- NOTE | 2022-11-16 13:10 | BI_ITS ---
MAMMOGRAPHY - BILATERAL SCREENING REASON FOR EXAM: Female, 77 years old. Routine annual screening examination. PERTINENT HISTORY: Non-contributory. TECHNIQUE: Digital bilateral breast peter (3D mammographic acquisition) in the CC and MLO projections. 2-D mediolateral oblique (MLO) and craniocaudad (CC) views of both breasts were obtained. CAD: Full Field Digital Mammography with Computer Added Detection was performed. COMPARISON: Comparison is made with prior study November 03, 2021 and July 31, 2020. FINDINGS: Breast Composition: The breasts are heterogeneously dense, which may obscure small masses. There are no dominant masses or suspicious calcifications. Stable small benign-appearing bilateral axillary lymph nodes. No other significant abnormalities are identified. There has been no significant change since the prior study. BI/SCRN MAMM (CAD)W/PETER BILAT IMPRESSION: Stable bilateral screening mammogram. Yearly follow-up mammogram recommended. (A) ASSESSMENT CATEGORY: BIRADS Category 2: Benign. A letter regarding these results will be sent to the patient by the facility within 30 days. Approximately 10% of breast cancers are not detected by mammography. A normal mammogram should not delay biopsy of a clinically suspicious abnormality. [id number] Electronically Signed: Hemant Meneses MD at 14:04 EDT ,
== END | disposition home or self-care (01) ==
LOC: OPBI 13:09
PROVIDERS: PCP Internal Medicine; Referring Provider Internal Medicine; Visit Provider Internal Medicine
DX: Z12.31 Encounter for screening mammogram for malignant neoplasm of breast (principal)
CPT/HCPCS: 77063; 77067

== ENCOUNTER 2022-11-21 12:48 | Emergency (ER) | payer MEDICARE, BC, SELFPAY ==
[2022-11-21 12:50] VITALS: BP 169/74; PULSE 72; RESP 12; TEMP 36.3; O2SAT 98; BMI 24.8
--- NOTE | 2022-11-21 13:15 | RAD_ITS ---
INDICATION: pain EXAMINATION/TECHNIQUE: X-RAY - RIGHT XR Knee Complete 4 Views or More 4 VIEWS COMPARISON: No relevant prior comparison study available FINDINGS: SOFT TISSUES: No soft tissue swelling or gas. No radiopaque foreign body. BONES/JOINTS: No acute fracture or subluxation.. Possible tiny effusion in the suprapatellar joint space. Preservation of the joint space.. No sclerotic or destructive changes observed. RAD/Knee 4 or More Views IMPRESSION: No evidence of acute osseous injury. Possible small joint effusion. Electronically Signed: Kehinde Ann MD at 13:55 EDT ,
--- NOTE | 2022-11-21 13:16 | EDS_ITS ---
HPI History of Present Illness Chief Complaint: Lower Extremity Injury Informant: patient Narrative Narrative: 77-year-old female presenting to the emergency department chief complaint of right knee pain. Patient states that yesterday she was climbing stairs with her lead foot on the step in front of her she lifted up and felt a pop in the infrapatellar region. Since then she notes swelling in the infrapatellar area. She has been able to bear weight. She denies any posterior leg pain. She denies any other injuries. No prior knee surgery on this side. [facility] Medical History Anal condyloma Asthma Balance disorder Basal cell carcinoma Benign joint hypermobility Cardiomegaly CKD stage G3b/A1, GFR 30-44 and albumin creatinine ratio <30 mg/g Coarse tremors Constipation COPD (chronic obstructive pulmonary disease) Decreased GFR Depression with anxiety Diarrhea Enchondroma Essential tremor GERD (gastroesophageal reflux disease) History of diverticulitis History of kidney stones Hyperlipemia Hypertension Idiopathic thrombocytopenic purpura (ITP) Impaired fasting glucose LUQ pain Nausea Nocturnal hypoxia CYNTHIA (obstructive sleep apnea) Osteopenia Pancreatic divisum Pneumonia Pre-diabetes Rectal abnormality Renal cyst Rosacea SOB (shortness of breath) Vitamin D deficiency Home Medications famotidine 20 mg tablet (Pepcid) 20 mg PO DAILY 04/09/21 [History Last Taken Unknown] fenofibrate nanocrystallized 145 mg tablet (Tricor) 145 mg PO DAILY 04/09/21 [History Last Taken Unknown] folic acid 400 mcg tablet 0.4 mg PO DAILY 04/09/21 [History Last Taken Unknown] lisinopril 20 mg tablet 20 mg PO BID 04/09/21 [History Last Taken Unknown] prochlorperazine maleate 5 mg tablet 5 - 10 mg PO Q6H PRN Stomach Upset 04/09/21 [History Last Taken Unknown] albuterol sulfate 90 mcg/actuation aerosol inhaler 2 puff inhalation Q4H PRN shortness of breath or wheezing 07/16/21 [History Last Taken Unknown] potassium chloride 10 mEq tablet,extended release 10 meq PO QODAY 01/07/22 [History Last Taken Unknown] sulfamethoxazole 800 mg-trimethoprim 160 mg tablet (Bactrim DS) 1 tab PO BID 3 days #6 tabs 02/07/22 [Rx Last Taken Unknown] lifitegrast 5 % eye drops in a dropperette (Xiidra) 1 drp ophthalmic (eye) BID 03/11/22 [History Last Taken Unknown] propranolol 10 mg tablet 20 mg (2 x 10 mg) PO BID #360 tabs 05/13/22 [Rx Last Taken Unknown] Allergy/AdvReac Type Severity Reaction Status Date / Time primidone Allergy Severe Anaphylaxis Verified 11/21/22 12:49 montelukast Allergy Intermediate Other Verified 11/21/22 12:49 alcohol Allergy Unknown Rash Verified 11/21/22 12:49 [From Mastisol Adhesive] beef derived (bovine) Allergy Unknown Unknown Verified 11/21/22 12:49 gum mastic Allergy Unknown Rash Verified 11/21/22 12:49 [From Mastisol Adhesive] methyl salicylate Allergy Unknown Rash Verified 11/21/22 12:49 [From Mastisol Adhesive] mold Allergy Unknown Difficulty Verified 11/21/22 12:49 Breathing/Wheezing penicillin V Allergy Unknown Rash Verified 11/21/22 12:49 storax Allergy Unknown Rash Verified 11/21/22 12:49 [From Mastisol Adhesive] Aupckrr-TYT-SrC Reductase Allergy NEEDS Verified 11/21/22 12:49 Inhibitor FOLLOW-UP black pepper AdvReac Unknown UNKNOWN Verified 11/21/22 12:49 Beta-Blockers AdvReac Other Verified 11/21/22 12:49 (Beta-Adrenergic Bloc Family History Father Cancer Diabetes CVA (cerebral vascular accident) Ulcer Grandfather Cancer Mother Hypertension CVA (cerebral vascular accident) Thyroid disorder Brother Hypertension Sister Hypertension Kidney disease Autoimmune disease Surgical History History of bladder surgery History of cataract surgery History of section History of cholecystectomy History of colon surgery History of D&C History of hip replacement History of hysterectomy History of kidney surgery History of left hip replacement History of splenectomy Social History Smoking Status: Never smoker Electronic Cigarette Use: not used second hand exposure: No alcohol intake: never substance use type: does not use what type of physical activity do you participate in: none tiara/tenriism: Buddhism seatbelt use: always ROS ROS ED Constitutional Constitutional ED: Denies chills or weight loss Eyes Eyes: Denies change in vision or diplopia ENT ENT ED: Denies ear pain, rhinorrhea or sore throat Cardiovascular Cardiovascular: Denies chest pain, orthopnea, palpitations or racing heartbeat Respiratory/Chest Respiratory/Chest: Denies cough, dyspnea or orthopnea Gastrointestinal Gastrointestinal: Denies abdominal pain, diarrhea, nausea or vomiting Genitourinary Genitourinary ED: Denies dysuria, hematuria or urinary frequency Musculoskeletal Musculoskeletal: Reports other Details: Right knee pain ; Denies arthralgias or myalgias Integumentary Denies abscess or rash Neurologic Neurologic: Denies headache(s) or weakness Psychiatric Psychiatric: Denies anxiety, depression, suicidal ideation or suicidal thoughts Endocrine Endocrinology: Denies polydipsia, polyphagia or polyuria Allergic/Immunologic Allergic/Immunologic ED: Denies mouth swelling, tongue swelling or urticaria EXAM Physical Exam Const Vital Signs: 11/21/22 12:50 Temperature 97.3 F L Temperature Source Temporal Pulse Rate 72 Respiratory Rate 12 Blood Pressure 169/74 H Blood Pressure Mean 105 Pulse Ox 98 Oxygen Delivery Method Room Air Positive well nourished and well developed General Appearance ED: well developed HEENT Reports normocephalic, head/scalp atraumatic and moist mucous membranes Eyes PERRL and EOMs intact bilaterally Neck no lymphadenopathy, supple and no JVD Resp normal respiratory effort and clear to auscultation bilaterally Cardio regular rate, regular rhythm and no murmurs GI normal to inspection, nondistended, normoactive bowel sounds and non-tender Palpation: soft Back/Spine no CVA tenderness and normal ROM Extremity Extremity Narrative: Patient has no joint line tenderness. There is no effusion present. Tenderness in the infrapatellar region along with slight edema. There is no overlying erythema or increased warmth. Ligaments appear stable on direct testing. General Extremety ED: Negative for edema General Extremity: Negative for edema Neuro oriented x3 and CN's II-XII intact bilaterally Sensorium / Orientation: alert Sensory Exam: No sensory level loss detected Motor Exam: strength 5/5 throughout Psych mental status grossly normal Mood & Affect: Negative for depressed or tearful Skin no rashes or lesions noted and no wounds MDM MDM MDM Narrative Medical decision making narrative: My interpretation of the plain films of the right knee is no acute fracture. There is some soft tissue swelling possibly of the suprapatellar bursa however clinically her symptoms are infrapatellar. We will treat with Eyal wrap ice and anti-inflammatories. At this point I do not think that the patient has meniscal injury as her symptoms are anterior infrapatellar. If no improvement with conservative treatment we will have her follow-up with primary care or orthopedics. Radiography Diagnostic Testing: Clinical Impression(s) from Imaging Studies Knee X-Ray 11/21/22 13:15 IMPRESSION: No evidence of acute osseous injury. Possible small joint effusion. Electronically Signed: Kehinde Ann MD at 13:55 EDT , Discharge Plan Triage Chief Complaint: Lower Extremity Injury ED Provider: Jeancarlos Hunt Dx/Rx/DC Orders Clinical Impression: Acute knee pain, Bursitis Instructions: ED Bursitis Prescriptions: No Action prochlorperazine maleate 5 mg tablet 5 - 10 mg PO Q6H PRN (Reason: Stomach Upset) lisinopril 20 mg tablet 20 mg PO BID fenofibrate nanocrystallized [Tricor] 145 mg tablet 145 mg PO DAILY famotidine [Pepcid] 20 mg tablet 20 mg PO DAILY folic acid 400 mcg tablet 0.4 mg PO DAILY albuterol sulfate 90 mcg/actuation HFA aerosol inhaler 2 puff inhalation Q4H PRN (Reason: shortness of breath or wheezing) Xiidra 5 % dropperette 1 drp ophthalmic (eye) BID Rx Instructions: administer approximately 12 hours apart potassium chloride 10 mEq tablet extended release 10 meq PO QODAY sulfamethoxazole-trimethoprim [Bactrim DS] 800-160 mg tablet 1 tab PO BID 3 Days Qty: 6 0RF propranolol 10 mg tablet 20 mg PO BID Qty: 360 1RF Rx Instructions: Take 2 tablets PO BID Primary Care Provider: Kristina Brandon Referrals: Kristina Brandon DO [Primary Care Provider] - Disposition Disposition: Home, Self Care Discharge Date/Time: 11/21/22 14:34
== END 2022-11-21 14:34 | disposition home or self-care (01) ==
LOC: ED 13:10
PROVIDERS: Emergency Provider Emergency Medicine; PCP Internal Medicine; Visit Provider Emergency Medicine
DX: M70.51 Other bursitis of knee, right knee (principal); N18.32 Chronic kidney disease, stage 3b; M25.561 Pain in right knee; G47.33 Obstructive sleep apnea (adult) (pediatric)
CPT/HCPCS: 73564; 99282

== ENCOUNTER → 2023-03-15 | Outpatient (CLI) | payer MEDICARE, BC, SELFPAY ==
--- NOTE | 2023-03-15 08:17 | MRI_ITS ---
STUDY: MRI RIGHT KNEE REASON FOR EXAM: Female, 77 years old. Pain, rule out loose body. TECHNIQUE: Standardized fat and water weighted pulse sequences were obtained in all 3 orthogonal planes. COMPARISON: Right knee radiographs dated 11/21/2022. FINDINGS: There is a partial radial tear of the posterior horn of the medial meniscus (sagittal PD series 4 images 26-28). There is a curvilinear subchondral fracture of the medial tibial plateau with surrounding marrow edema (coronal T2 series 7 images 15-19). Normal medial femoral condyle. There is a grade I MCL sprain with periligamentous edema. Normal distal semimembranosus, gracilis and semitendinosus tendons. Normal lateral meniscus. Normal hyaline cartilage of the lateral femorotibial compartment. Normal lateral femoral condyle and tibial plateau. Normal proximal tibiofibular articulation. Normal lateral collateral ( fibular ) ligament. Normal popliteus tendon. Normal biceps femoris tendon. Normal anterior cruciate ligament (ACL). Normal posterior cruciate ligament (PCL). There is high-grade chondromalacia along the patellar apex with underlying subchondral marrow edema (axial T2 series 3 image 8). Normal congruent patellofemoral articulation. Normal medial and lateral patellar retinaculum. Normal quadriceps tendon. Normal patellar tendon. Normal Hoffa''s fat pad. There is a large volume joint effusion. There is a small popliteal cyst. The soft tissues are unremarkable. MRI/Lower Ext Joint Only (Routine) IMPRESSION: Partial radial tear of the posterior horn of the medial meniscus. Curvilinear subchondral fracture of the medial tibial plateau with surrounding marrow edema. Grade I MCL sprain. High-grade chondromalacia along the patellar apex with underlying subchondral marrow edema. Large joint effusion, with a small popliteal cyst. Electronically Signed: Paul Garza MD at 9:55 EST ,
== END | disposition home or self-care (01) ==
LOC: MRI 08:03
PROVIDERS: PCP Internal Medicine; Referring Provider Orthopaedic Surgery Sports Medicine; Visit Provider Orthopaedic Surgery Sports Medicine
DX: M25.561 Pain in right knee (principal)
CPT/HCPCS: 73721

== ENCOUNTER 2023-03-31 11:56 | Emergency (ER) | payer MEDICARE, BC, SELFPAY ==
[2023-03-31 11:59] VITALS: BP 165/70; BP 175/74; PULSE 72; PULSE 74; RESP 16; TEMP 36.6; O2SAT 97; O2SAT 98; BMI 25.4
--- NOTE | 2023-03-31 12:30 | CT_ITS ---
STUDY: CT BRAIN WITHOUT CONTRAST REASON FOR EXAM: Female, 77 years old. Head trauma RADIATION DOSAGE (If Supplied By Facility): CTDIvol = ( 44.99 ) mGy, DLP = ( 796.11 ) mGycm TECHNIQUE: Transaxial CT imaging of the brain was performed without administration of intravenous contrast material. Individualized dose optimization techniques were used for this CT. COMPARISON: No relevant priors. FINDINGS: Normal soft tissue structures. There is hyperostosis frontalis internus. There is mild cerebral atrophy with widening of the extra-axial spaces and ventricular dilatation. There are areas of decreased attenuation within the white matter tracts of the supratentorial brain, consistent with microvascular disease changes. Normal basal ganglia and thalami. Normal brainstem. Normal cerebellum. There is no intracranial hemorrhage. There are no findings of an acute ischemic infarction. Mucosal thickening along the posterior aspect of the left sphenoid sinus. CT/Brain/Head without Contrast IMPRESSION: Chronic involutional changes of the brain. Mucosal thickening along the posterior aspect of the left sphenoid sinus. Electronically Signed: Hemant Meneses MD at 13:02 EST ,
--- NOTE | 2023-03-31 12:30 | CT_ITS ---
STUDY: CT CERVICAL SPINE WITHOUT CONTRAST REASON FOR EXAM: Female, 77 years old. Neck pain RADIATION DOSAGE (If Supplied By Facility): CTDIvol = ( 18.73 ) mGy, DLP = ( 403.49 ) mGycm TECHNIQUE: High resolution transaxial imaging was performed without contrast material. Sagittal and coronal images were reconstructed. Individualized dose optimization techniques were used for this CT. COMPARISON: None FINDINGS: Normal craniovertebral junction. There are degenerative changes of the anterior atlantoaxial articulation. Normal odontoid process. Normal cervical lordosis. Normal vertebral bodies and posterior osseous elements. C2-3: Facet joint osteoarthritis and hypertrophy. C3-4: Minimal anterior listhesis of C3 on C4 most likely secondary to the facet joint osteoarthritis and hypertrophy. This is worse on the right side. This also evidence of uncovertebral arthrosis. Moderate degree right neural foraminal stenosis. C4-5: Moderate degree of disc space narrowing. Facet joint osteoarthritis and hypertrophy worse on the left side. Uncovertebral arthrosis. Moderate degree of bilateral neural foraminal stenosis worse on the right side. C5-6: Marked degree of disc space narrowing and spondylosis. Uncovertebral arthrosis. Worse on the right side. Bilateral neural foraminal stenosis. C6-7: Marked degree of disc space narrowing and spondylosis. Facet joint osteoarthritis and hypertrophy. C7-T1: Normal endplates. Normal disc height and morphology. Normal central canal and intervertebral neuroforamina. Normal visualized soft tissue structures. CT/Spine Cervical without Contras IMPRESSION: Multilevel degenerative changes, as described above. Electronically Signed: Hemant Meneses MD at 13:08 EST ,
--- NOTE | 2023-03-31 12:31 | EX.ED.GENINJ ---
HPI History of Present Illness Chief Complaint: Fall Narrative Narrative: 77-year-old female presenting for evaluation. She states she got her left foot caught on a rug and spun around tripped falling backwards. She states she basically was able to catch most of resolved but sat on the floor fell and hit her head. No LOC. Patient felt initially dizzy after hitting her head but this is resolved. No visual complaints. No nausea, vomiting. She has been up and ambulate since then. She has a mild headache. She states she did hit her left elbow as she was going down but does not think she hurt severely. She notes there is no bruising and she is able to range the left shoulder and elbow. 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 GERD (gastroesophageal reflux disease) History of diverticulitis History of kidney stones Hyperlipemia Hypertension Idiopathic thrombocytopenic purpura (ITP) Impaired fasting glucose Nocturnal hypoxia CYNTHIA (obstructive sleep apnea) Osteopenia Pancreatic divisum Pneumonia Pre-diabetes Rectal abnormality Renal cyst Rosacea SOB (shortness of breath) Vitamin D deficiency Home Medications famotidine 20 mg tablet (Pepcid) 20 mg PO DAILY 04/09/21 [History Last Taken Unknown] fenofibrate nanocrystallized 145 mg tablet (Tricor) 145 mg PO DAILY 04/09/21 [History Last Taken Unknown] folic acid 400 mcg tablet 0.4 mg PO DAILY 04/09/21 [History Last Taken Unknown] lisinopril 20 mg tablet 20 mg PO BID 04/09/21 [History Last Taken Unknown] prochlorperazine maleate 5 mg tablet 5 - 10 mg PO Q6H PRN Stomach Upset 04/09/21 [History Last Taken Unknown] albuterol sulfate 90 mcg/actuation aerosol inhaler 2 puff inhalation Q4H PRN shortness of breath or wheezing 07/16/21 [History Last Taken Unknown] potassium chloride 10 mEq tablet,extended release 10 meq PO QODAY 01/07/22 [History Last Taken Unknown] azithromycin 250 mg tablet 250 mg PO QDAY #12 tabs 01/26/23 [Rx Last Taken Unknown] buspirone 5 mg tablet 5 mg PO BID #60 tabs 02/10/23 [Rx Last Taken Unknown] propranolol 10 mg tablet 20 mg (2 x 10 mg) PO BID #120 tabs 02/10/23 [Rx Last Taken Unknown] cholecalciferol (vitamin D3) 25 mcg (1,000 unit) capsule 25 mcg PO DAILY low bone density 3 months #90 caps 03/17/23 [Rx Last Taken Unknown] Allergy/AdvReac Type Severity Reaction Status Date / Time primidone Allergy Severe Anaphylaxis Verified 03/17/23 13:21 montelukast Allergy Intermediate Other Verified 03/17/23 13:21 alcohol Allergy Unknown Rash Verified 03/17/23 13:21 [From Mastisol Adhesive] beef derived (bovine) Allergy Unknown Unknown Verified 03/17/23 13:21 gum mastic Allergy Unknown Rash Verified 03/17/23 13:21 [From Mastisol Adhesive] methyl salicylate Allergy Unknown Rash Verified 03/17/23 13:21 [From Mastisol Adhesive] mold Allergy Unknown Difficulty Verified 03/17/23 13:21 Breathing/Wheezing penicillin V Allergy Unknown Rash Verified 03/17/23 13:21 storax Allergy Unknown Rash Verified 03/17/23 13:21 [From Mastisol Adhesive] [id number] Reductase Allergy NEEDS Verified 03/17/23 13:21 Inhibitor FOLLOW-UP black pepper AdvReac Unknown UNKNOWN Verified 03/17/23 13:21 Family History Father Cancer colon Diabetes CVA (cerebral vascular accident) Ulcer Grandfather Cancer stomach Mother Hypertension CVA (cerebral vascular accident) Thyroid disorder Brother Hypertension Hyperlipidemia Sister Hypertension Hyperlipidemia Surgical History H/O elbow surgery History of cataract surgery History of section History of cholecystectomy History of D&C History of hip replacement History of hysterectomy History of left hip replacement History of splenectomy S/P nasal surgery Social History household members: spouse current occupational status: retired current occupation: biostatistician Smoking Status: Never smoker Electronic Cigarette Use: not used second hand exposure: No alcohol intake: never substance use type: does not use what type of physical activity do you participate in: none tiara/spiritism: Anglican seatbelt use: always do you feel safe at home: Yes ROS ROS ED Constitutional Constitutional ED: Denies chills, fever(s) or sweats Eyes Eyes: Denies blurry vision or change in vision ENT ENT ED: Denies ear pain or sore throat Cardiovascular Cardiovascular: Denies chest pain, palpitations or racing heartbeat Respiratory/Chest Respiratory/Chest: Denies cough, dyspnea or sputum Gastrointestinal Gastrointestinal: Denies abdominal pain, constipation, diarrhea, nausea or vomiting Genitourinary Genitourinary ED: Denies dysuria, hematuria or urinary frequency Musculoskeletal Musculoskeletal: Denies arthralgias, myalgias or neck pain Integumentary Denies abscess, Abrasions or rash Neurologic Neurologic: Reports headache(s); Denies paresthesias or weakness Psychiatric Psychiatric: Denies anxiety, depression, suicidal ideation or suicidal thoughts Endocrine Endocrinology: Denies polydipsia or polyuria EXAM Physical Exam Const Vital Signs: 03/31/23 11:59 03/31/23 11:59 03/31/23 11:59 Temperature 98 F Temperature Source Oral Pulse Rate 72 74 Respiratory Rate 16 16 Respiratory Effort Normal Blood Pressure 165/70 H 175/74 H Blood Pressure Mean 101 107 Pulse Ox 97 98 Oxygen Delivery Method Room Air Room Air Room Air Positive well nourished General Appearance ED: NAD HEENT atraumatic; Negative for trauma Eyes PERRL and EOMs intact bilaterally Chest Wall inspection of chest normal Resp normal respiratory effort Cardio regular rhythm GI normal to inspection, nondistended, normoactive bowel sounds Extremity Extremity Narrative: Left elbow nontender to palpation. Normal range of motion. Left and extension maintained. No bruising or edema. Neuro oriented x3 and CN's II-XII intact bilaterally Sensorium / Orientation: alert Motor Exam: strength 5/5 throughout Psych mental status grossly normal Skin no wounds MDM MDM MDM Narrative Medical decision making narrative: Patient presenting with neck pain and headache after mechanical fall. Differential includes intracranial hemorrhage, skull fracture, concussion, cervical strain, C-spine fracture. CT brain and cervical spine will be obtained. Patient declines anything stronger than Tylenol at this time. No nausea currently. CT brain and cervical spine were negative. Patient counseled on findings. This point I feel she stable for discharge. Return precautions discussed. Impression: 1. Mechanical fall 2. Closed head injury 3. Cervical strain Lab Data Attestation: I reviewed the patient's lab results. Radiography Diagnostic Testing: Clinical Impression(s) from Imaging Studies Brain CT 03/31/23 12:30 IMPRESSION: Chronic involutional changes of the brain. Mucosal thickening along the posterior aspect of the left sphenoid sinus. Electronically Signed: Hemant Meneses MD at 13:02 EST , Cervical Spine CT 03/31/23 12:30 IMPRESSION: Multilevel degenerative changes, as described above. Electronically Signed: Hemant Meneses MD at 13:08 EST , Discharge Plan Triage Chief Complaint: Fall ED Provider: Arnoldo Monae Dx/Rx/DC Orders Instructions: ED Head Injury (Adult), ED Neck Sprain or Strain, ED Fall Prevention Prescriptions: No Action prochlorperazine maleate 5 mg tablet 5 - 10 mg PO Q6H PRN (Reason: Stomach Upset) lisinopril 20 mg tablet 20 mg PO BID fenofibrate nanocrystallized [Tricor] 145 mg tablet 145 mg PO DAILY famotidine [Pepcid] 20 mg tablet 20 mg PO DAILY folic acid 400 mcg tablet 0.4 mg PO DAILY albuterol sulfate 90 mcg/actuation HFA aerosol inhaler 2 puff inhalation Q4H PRN (Reason: shortness of breath or wheezing) potassium chloride 10 mEq tablet extended release 10 meq PO QODAY buspirone 5 mg tablet 5 mg PO BID Qty: 60 6RF propranolol 10 mg tablet 20 mg PO BID Qty: 120 6RF Rx Instructions: Take 2 tablets PO BID azithromycin 250 mg tablet 250 mg PO QDAY Qty: 12 0RF Rx Instructions: 2 tablets today, then 1 tablet daily on days 2 through 11 cholecalciferol (vitamin D3) 25 mcg (1,000 unit) capsule 25 mcg PO DAILY MDD 1 90 Days Qty: 90 0RF Primary Care Provider: Jaclyn Siddiqui Referrals: Jaclyn Siddiqui MD [Primary Care Provider] - Disposition Disposition: Home, Self Care
[2023-03-31] MEDS: Acetaminophen 500 MG Tablet 1000 MG PO (12:34)
[2023-03-31 14:30] VITALS: BP 142/68; PULSE 74; RESP 16; O2SAT 98
== END 2023-03-31 14:31 | disposition home or self-care (01) ==
PROVIDERS: Emergency Provider Student in an Organized Health Care Education/Training Program; PCP Internal Medicine; Visit Provider Student in an Organized Health Care Education/Training Program
DX: S09.90XA Unspecified injury of head, initial encounter (principal); J44.9 Chronic obstructive pulmonary disease, unspecified; N18.31 Chronic kidney disease, stage 3a; S16.1XXA Strain of muscle, fascia and tendon at neck level, initial encounter; G47.33 Obstructive sleep apnea (adult) (pediatric); W01.0XXA Fall on same level from slipping, tripping and stumbling without subsequent striking against object, initial encounter; Z86.16 Personal history of COVID-19
CPT/HCPCS: 70450; 72125; 99282

== ENCOUNTER → 2023-04-05 | Outpatient (CLI) | payer MEDICARE, BC, SELFPAY ==
[2023-04-05 10:15] LABS: Hematocrit 41.3 % (37-47); Hemoglobin 13.2 g/dL (12.0-15.0); Mean Corpuscular Hgb 30.4 pg (27.0-32.0); Mean Corpuscular Volume 95.2 fL (81-99); Platelet Count 263 K/mm3 (150-450); RBC Distribution Width CV 14.5 % (11.6-14.6); RBC Distribution Width SD 50.6 fl (35.1-43.9); Red Blood Count 4.34 M/mm3 (4.2-5.4); White Blood Count 6.2 K/mm3 (4.4-11.0)
[2023-04-05 10:59] LABS: Albumin, Serum 3.5 g/dL (3.2-5.0); BUN 35 mg/dL (7-18); BUN/Creat Ratio 26.1 RATIO (10-20); Calcium,Total 9.8 mg/dL (8.5-10.1); Chloride 107 mmol/L (98-107); Creatinine, Serum 1.34 mg/dL (0.55-1.02); EST Glomerular Filtration Rate 41 mL/min (>60); Est Glom Filt Rate - Afr Amer 49 mL/min (>60); Glucose 107 mg/dL (74-106); Phosphorus 3.2 mg/dL (2.5-4.9); Potassium 4.1 mmol/L (3.5-5.1); Sodium Level 137 mmol/L (136-145)
[2023-04-05 11:14] LABS: PTHIN 46.8 pg/mL (18.4-80.1); Protein, Urine (Random) 7.1 mg/dL (<11.9); Protein:Creat Ratio 152 mg/g CRE (0-200)
== END | disposition home or self-care (01) ==
LOC: MTLAB 08:39
PROVIDERS: PCP Internal Medicine; Referring Provider Internal Medicine Nephrology; Visit Provider Internal Medicine Nephrology
DX: E55.9 Vitamin D deficiency, unspecified (principal); N18.32 Chronic kidney disease, stage 3b
CPT/HCPCS: 36415; 80069; 82306; 82570; 83970; 84156; 85027

== ENCOUNTER → 2023-04-20 | Outpatient (CLI) | payer MEDICARE, BC, SELFPAY ==
[2023-04-20 13:18] LABS: AST(SGOT) 15 U/L (15-37); Alanine Aminotransfer ALT/SGPT 19 U/L (13-56); Albumin, Serum 3.8 g/dL (3.2-5.0); Alkaline Phosphatase 47 U/L (45-117); Cholesterol 164 mg/dL (200); Globulin 3.7 g/dL (2.2-4.2); High Density Lipoprotein 43 mg/dL; Protein, Total 7.5 g/dL (6.4-8.2); Thyroid Stim Hormone (TSH) 1.18 uIU/mL (0.358-3.74); Triglycerides 106 mg/dL; Very Low Density Lipoprotein 21 mg/dL (5-40)
== END | disposition home or self-care (01) ==
LOC: BIMLAB 09:23
PROVIDERS: PCP Internal Medicine; Visit Provider Internal Medicine
DX: I10 Essential (primary) hypertension (principal)
CPT/HCPCS: 36415; 80061; 80076; 84443

== ENCOUNTER → 2023-07-07 | Outpatient (CLI) | payer MEDICARE, BC, SELFPAY ==
--- NOTE | 2023-07-07 10:12 | RAD_ITS ---
STUDY: X-RAY CHEST REASON FOR EXAM: Female, 77 years old. COUGH TECHNIQUE: PA and lateral views of the chest. COMPARISON: None. FINDINGS: The lungs are clear and expanded. There is no demonstrated pleural abnormality. Normal size heart. Normal mediastinum and ge. Normal visualized pulmonary arteries. Normal visualized aortic arch and descending thoracic aorta. Normal visualized thoracic spine. Normal visualized ribs, clavicles, and shoulders. There is no demonstrated abnormality of the visualized soft tissue structures of the upper abdomen. RAD/Chest PA and Lateral IMPRESSION: Normal x-ray examination of the chest. Electronically Signed: Duong Danielle MD at 22:52 EDT ,
== END | disposition home or self-care (01) ==
LOC: MTRAD 10:09
PROVIDERS: PCP Internal Medicine; Referring Provider Internal Medicine Pulmonary Disease; Visit Provider Internal Medicine Pulmonary Disease
DX: R05.9 Cough, unspecified (principal)
CPT/HCPCS: 71046

== ENCOUNTER → 2023-09-06 | Outpatient (CLI) | payer MEDICARE, BC, SELFPAY | END | disposition home or self-care (01) | LOC: LABSPEC 16:37 | PROVIDERS: PCP Internal Medicine; Referring Provider Nurse Practitioner; Visit Provider Nurse Practitioner | DX: J06.9 Acute upper respiratory infection, unspecified (principal) | CPT/HCPCS: 87631 ==

== ENCOUNTER → 2023-11-18 | Outpatient (CLI) | payer MEDICARE, BC, SELFPAY ==
--- NOTE | 2023-11-18 10:19 | BI_ITS ---
MAMMOGRAPHY - BILATERAL SCREENING REASON FOR EXAM: Female, 78 years old. Routine annual screening examination. PERTINENT HISTORY: Non-contributory. TECHNIQUE: Digital bilateral breast peter (3D mammographic acquisition) in the CC and MLO projections. 2-D mediolateral oblique (MLO) and craniocaudad (CC) views of both breasts were obtained. CAD: Full Field Digital Mammography with Computer Added Detection was performed. COMPARISON: Comparison is made with prior study dated November 16, 2022 and November 03, 2021 FINDINGS: Breast Composition: The breasts are heterogeneously dense, which may obscure small masses. There are no dominant masses or suspicious calcifications. No other significant abnormalities are identified. There has been no significant change since the prior study. BI/SCRN MAMM (CAD)W/PETER BILAT IMPRESSION: Stable bilateral screening mammogram. Yearly follow-up mammogram recommended. (A) ASSESSMENT CATEGORY: BIRADS Category 1: Negative. A letter regarding these results will be sent to the patient by the facility within 30 days. Approximately 10% of breast cancers are not detected by mammography. A normal mammogram should not delay biopsy of a clinically suspicious abnormality. [id number] Electronically Signed: Hemant Meneses MD at 10:57 EDT ,
== END | disposition home or self-care (01) ==
LOC: OPBI 10:18
PROVIDERS: PCP Internal Medicine; Referring Provider Internal Medicine; Visit Provider Internal Medicine
DX: Z12.31 Encounter for screening mammogram for malignant neoplasm of breast (principal)
CPT/HCPCS: 77063; 77067

== ENCOUNTER → 2023-11-23 | Outpatient (CLI) | payer MEDICARE, BC, SELFPAY ==
--- NOTE | 2023-11-23 13:55 | BD_ITS ---
STUDY: DUAL ENERGY X-RAY ABSORPTIOMETRY / DXA REASON FOR EXAM: Female, 78 years old. Pain TECHNIQUE: Bone Mineral Density (BMD) measurements of lumbar spine and right hip were obtained. COMPARISON: Comparison is made with prior study dated November 03, 2021. FINDINGS: Lumbar Spine (L1-L4): g/cm2 (0.973) / T-score (-0.1) / Z-score (2.4) Findings are suggestive of normal bone density with a low fracture risk. Right Femur Total: g/cm2 (0.773) / T-score (-1.4) / Z-score (0.6) Right Femoral Neck: g/cm2 (0.577) / T-score (-2.4) / Z-score (-0.2) The T-Scores on the most recent prior examination were: Lumbar Spine (L1-L4): There has been improvement of bone density since the previous examination. Right Femur Total: which represents a worsening of 5.7%. BD/Dexa Bone Density Study IMPRESSION: The patient is considered osteopenic as outlined below according to World [employer] Organization (WHO) criteria with a high fracture risk. There has been worsening of bone density since the previous examination. Reference Information: The T-score is the number of standard deviations above or below the standard which is normal for young adults at their peak bone mineral density. The World Health Organization (WHO) interprets the T-scores as follows: Above -1 Normal bone density Between -1 and -2.5 Osteopenia Equal to / or below -2.5 Osteoporosis As a practical clinical guideline, osteopenia may be graded as follows: Mild -1 through -1.5 Moderate -1.6 through -2.0 Severe -2.1 through -2.4 The Z-score is the number of standard deviations above or below age-matched controls. A Z-score of less than -1.5 would be considered abnormal. References: 1. NIH Osteoporosis and Related Bone Diseases www osteo.org 2. International Society for Clinical Densitometry www iscd.org 3. National Osteoporosis Foundation www nof.org Electronically Signed: Hemant Meneses MD at 8:18 EDT ,
== END | disposition home or self-care (01) ==
PROVIDERS: PCP Internal Medicine; Referring Provider Orthopaedic Surgery Sports Medicine; Visit Provider Orthopaedic Surgery Sports Medicine
DX: M81.0 Age-related osteoporosis without current pathological fracture (principal); M85.9 Disorder of bone density and structure, unspecified
CPT/HCPCS: 77080

== ENCOUNTER → 2024-03-30 | Outpatient (CLI) | payer MEDICARE, BC, SELFPAY ==
[2024-03-30 16:08] LABS: Protein, Urine (Random) 19.8 mg/dL (<11.9); Protein:Creat Ratio 227 mg/g CRE (0-200)
[2024-03-30 17:06] LABS: Albumin, Serum 3.5 g/dL (3.2-5.0); BUN 39 mg/dL (7-18); BUN/Creat Ratio 25.3 RATIO (10-20); Calcium,Total 9.7 mg/dL (8.5-10.1); Chloride 107 mmol/L (98-107); Creatinine, Serum 1.54 mg/dL (0.55-1.02); EST Glomerular Filtration Rate 35 mL/min (>60); Est Glom Filt Rate - Afr Amer 42 mL/min (>60); Glucose 92 mg/dL (74-106); Sodium Level 139 mmol/L (136-145)
== END | disposition home or self-care (01) ==
LOC: MTLAB 13:14
PROVIDERS: PCP Internal Medicine; Referring Provider Internal Medicine Nephrology; Visit Provider Internal Medicine Nephrology
DX: N18.32 Chronic kidney disease, stage 3b (principal)
CPT/HCPCS: 36415; 80069; 82570; 84156

== ENCOUNTER → 2025-02-16 | Outpatient (CLI) | payer MEDICARE, BC, SELFPAY | END | disposition home or self-care (01) | LOC: LABSPEC 02-18 10:26 | PROVIDERS: PCP Internal Medicine; Visit Provider Physician Assistant | DX: R35.0 Frequency of micturition (principal) | CPT/HCPCS: 87077; 87086; 87088; 87186 ==

== ENCOUNTER → 2025-02-20 | Outpatient (CLI) | payer MEDICARE, BC, SELFPAY ==
--- NOTE | 2025-02-20 16:28 | CT_ITS ---
PROCEDURE: SPINE CERVICAL WITHOUT CONTRAS 02/20/2025 REASON FOR EXAM: NECK PAIN FOLLOWING FALL IN NOVEMBER 2024 TECHNIQUE: Procedure Code: CTS Modality: CT Procedure: SPINE CERVICAL WITHOUT CONTRAS Coronal and Sagittal reconstruction series were provided. One or more dose reduction techniques were used (e.g., Automated exposure control, adjustment of the mA and/or kV according to patient size, use of iterative reconstruction technique. RADIATION DOSE SUMMARY: CTDlvol: 16.43 mGy DLP: 351.84 mGycm COMPARISON: CT cervical spine 03/31/2023. Cervical spine MRI 04/23/2021. FINDINGS: Alignment: Anterolisthesis C3 on C4 by 2 mm and C4 on C5 by 2 mm. Anterolisthesis C6 on C7 by 3 mm. Vertebrae: No acute bony abnormalities. Soft Tissues: No soft tissue abnormalities. The lung apices are clear. Disc levels: C1-2: Facet joints arthropathy. Severe bilateral foramina stenosis. No canal stenosis. C2-3: Facet joints arthropathy. Severe bilateral foramina stenosis. No canal stenosis. C3-4: Facet joint arthropathy. Severe bilateral foramina stenosis. Disc osteophyte complex. Mild canal stenosis. C4-5: Disc space narrowing. Sclerotic and erosive endplates. Facet joints arthropathy. Uncovertebral hypertrophy. Disc osteophyte complex. Severe bilateral foramina stenosis. Moderate canal stenosis. C5-6: Disc space narrowing. Uncovertebral hypertrophy. Facet joint arthropathy. Severe bilateral foramina stenosis. Moderate canal stenosis. C6-7: Uncovered disc bulge. Facet joints arthropathy. Mild bilateral foramina stenosis. Mild canal stenosis. C7-T1: No significant foraminal or canal stenosis. CT/Spine Cervical without Contras IMPRESSION: No acute injury to the cervical spine. Similar to MRI 04/23/2021. Multilevel degenerate changes predominantly for sev ere bilateral foramina stenosis and moderate canal stenosis at C4-C5 and C5-C6. Reading Location: [facility]
--- OUTSIDE RECORDS SUMMARY | 2025-02-20 16:33 | XMS RPT_ITS | CCD ---
Author Organization [facility] CliniSyoh Care Team Providers Care Behavioral Scientist Name Role Phone Lindy DODSONDhaval Unavailable Tee TAMAYON Killian Unavailable Unavailable Unavailable Unavailable Gold OCHOA, Aster Unavailable Unavailable Kristina Brandon DO Unavailable Lindy DODSONDhaval Unavailable Mike Christiansen Unavailable Brad TAMAYON, Latosha Unavailable Unavailable Kane, Jayaprakas Unavailable Unavailable Kane, Jayaprakash Unavailable [phone] Brandt Dang Unavailable Flip Beckford Unavailable Gravius CAR ESCORT, Ann-Marie Unavailable Unavailable Unavailable Unavailable Slasid SECURITIES ADVISER, Stacie Unavailable Unavailable Kristina Brandon DO Unavailable Mantabitha LOUIS, Sasha Unavailable Unavailable Dhaval Israel Unavailable Fast DO Rose A Unavailable Dr. Brandt Dang Attending Provider Dr. Brandt Dang Referring Provider [phone] Dr. Kristina Brandon Primary Care Provider Rocio LOUIS, Kayela Unavailable Unavailable Jadyn Asif CNP Unavailable Dr. Kristina Brandon Referring Provider [phone] Dr. Jeancarlos Hopkins Emergency Provider Dr. Cuate Nicole Attending Provider [phone] Cuate Nicole Admit Provider Dr. Cuate Nicole Other Provider Dr. Lakisha Avila Attending Provider Dr. Lakisha Avila Other Provider Dr. Kristina Brandon Referring Provider Claudia Haywood Unavailable Yajaira Torres MA Unavailable Unavailable Friend, Dr. Brar Unavailable Mario Garcia MD Unavailable [facility] IVORY Dhaval Miramontes Primary Care Provider Dr. Kristina Brandon Primary Care Provider [phone] Dr. León Barcenas Attending Provider [phone] Brandt Dang Attending Provider [phone] Dr. Brandt Dang Referring Provider Dr. Kristina Brandon Primary Care Provider [phone] Kristina Brandon DO Attending Unavailable Kristina Brandon DO Consulting Unavailable Edda Saldivar MA Unavailable Unavailable Antony LPN, Jasiel Unavailable Unavailable [facility] Unavailable Dr. Kristina Brandon Primary Care Provider [phone] Dr. Brandt Dang Attending Provider Dr. Brandt Dang Referring Provider Dr. León Barcenas Attending Provider [phone] NERY Jain LPN Unavailable Unavailable Dr. Kristina Brandon Primary Care Provider Dr. Kristina Brandon Referring Provider Dr. Brandt Dang Attending Provider Dr. Brandt Dang Referring Provider Dr. Jaclyn Siddiqui Attending Provider Aisha ANDRE, THAI Domínguez Attending Provider MD Howard Dutton Attending Provider Dr. Jaclyn Siddiqui Primary Care Provider Dr. Jaclyn Siddiqui Referring Provider [phone] Dr. Kristina Brandon Primary Care Provider [phone] Roma, Dr. Acevedo Referring Provider Dr. Brandt Dang Attending Provider Dr. Kristina Brandon Primary Care Provider [phone] Dr. Brandt Dang Attending Provider Roma, Dr. Acevedo Referring Provider Dhaval Israel CNP Primary Care Provider Indio Medina MD Primary Care Provider Podlogar DEFENSE ANALYST.VP CLINICAL, Zara Unavailable Indio Medina MD Primary Care Provider Podlogar DEFENSE ANALYST.VP CLINICAL, Zara Unavailable Chen GAMEZ, Dr. Anaya Primary Care Provider [phone] Kane GAMEZ, Dr. Hein Attending Provider [phone] Kane GAMEZ, Dr. Hein Referring Provider [phone] Alton GAMEZ, Dr. Carlton Attending Provider Alton GAMEZ, Dr. Carlton Referring Provider Chen GAMEZ, Dr. Anaya Referring Provider Knoble DEFENSE ANALYST.IVORY, Eben Unavailable Chen GAMEZ, Dr. Anaya Primary Care Provider [phone] Dr. Brandt Dang MD Attending Provider Alton GAMEZ, Dr. Carlton Referring Provider Chen GAMEZ, Dr. Anaya Referring Provider ENMANUEL LOCKWOOD Attending Unavaila [facility] Chen GAMEZ, Dr. Anaya Primary Care Provider [phone] Alton GAMEZ, Dr. Carlton Attending Provider Alton GAMEZ, Dr. Carlton Referring Provider Chen GAMEZ, Dr. Anaya Referring Provider Chen GAMEZ, Dr. Anaya Primary Care Provider [phone] Alton GAMEZ, Dr. Carlton Attending Provider Alton GAMEZ, Dr. Carlton Referring Provider [facility] Primary Care Physician [place] PT, [place] Unavailable Unavailable Chen GAMEZ, Dr. Anaya Primary Care Physician Alton GAMEZ, Dr. Carlton Attending Physician Alton GAMEZ, Dr. Carlton Referring Provider Chen GAMEZ, Dr. Anaya Referring Provider BENNET DEFENSE ANALYST-UNIFORM ROOM ATTENDANT, [facility] Primary Care Unavailab savage AYALA MD, TORSTEN Bass Attending Unavailable CIESA, SAMY Primary Care Unavailable PODLOGAR, ZARA Referring Unavailable CIESA, SAMY Primary Care Unavailable PODLOGARZARA Referring Unavailable INDIO MEDINA Primary Care Unavailab le NELSON TORREZ Attending Unavailable INDIO MEDINA Primary Care Unavailab le PODLOGAR, ZARA Attending Unavailable INDIO MEDINA Primary Care Unavailab le PODLOGARZARA Referring Unavailable NELSON TORREZ Attending Unavailable INDIO MEDINA Primary Care Unavailab le INDIO MEDINA Primary Care Unavailab le NELSON TORREZ Attending Unavailable EBEN PIPER Referring Unavailable INDIO MEDINA Primary Care Unavailab le CIESA, SAMY Primary Care Unavailable PODLOGAR, ZARA Attending Unavailable CIESA, SAMY Primary Care Unavailable PODLOGAR, ZARA Referring Unavailable EBEN PIEPR Attending Unavailable INDIO MEDINA Primary Care Unavailab le CIESA, SMAY Primary Care Unavailable PODLOGAR, ZARA Referring Unavailable CIESA, SAMY Primary Care Unavailable PODLOGAR, ZARA Attending Unavailable INDIO MEDINA Primary Care Unavailab NELSON Barr Attending Unavailable NELSON TORREZ Attending Unavailable LUCILLELAURAAllanDHAVAL Primary Care Unavailable ZARA GALLOWAY Referring Unavailable Baddour, Brandt Referring Unavailable [place], Jaclyn Primary Care Unavailable Baddour, Brandt Attending Unavailable Baddour, Brandt Referring Unavailable [place], Jaclyn Primary Care Unavailable Baddour, Brandt Attending Unavailable Baddour, Brandt Referring Unavailable Chen, Jaclyn Primary Care Unavailable Baddour, Brandt Attending Unavailable Chen, Jaclyn Primary Care Unavailable Baddour, Brandt Attending Unavailable Baddour, Brandt Referring Unavailable Chen, Jaclyn Primary Care Unavailable Kane, Jayaprakas Referring Unavailable Kane, Jayaprakas Attending Unavailable [place], Jaclyn Primary Care Unavailable Baddour, Brandt Attending Unavailable Baddour, Brandt Referring Unavailable Chen, Jaclyn Primary Care Unavailable Sddonatalia, Brandt Attending Unavailable Baddour, Brandt Referring Unavailable Chen, Jaclyn Referring Unavailable Chen, Jaclyn Primary Care Unavailable Freedom Victor Attending Unavailable [place], Jaclyn Referring Unavailable Chen, Jaclyn Primary Care Unavailable Baddour, Brandt Attending Unavailable [place], Jaclyn Primary Care Unavailable Baddour, Brandt Referring Unavailable Baddour, Brandt Attending Unavailable [place], Jaclyn Referring Unavailable Baddour, Brandt Attending Unavailable Chen, Jaclyn Primary Care Unavailable Baddour, Brandt Attending Unavailable Baddour, Brandt Referring Unavailable [place], Jaclyn Primary Care Unavailable Baddour, Brandt Attending Unavailable Baddour, Brandt Referring Unavailable Chen, Jaclyn Primary Care Unavailable Chen, Jaclyn Referring Unavailable Baddour, Brandt Attending Unavailable Chen, Jaclyn Primary Care Unavailable Baddour, Brandt Attending Unavailable Baddour, Brandt Referring Unavailable Chen GAMEZ, Dr. Anaya Primary Care Physician Dr. Brandt Dang MD Attending Physician Dr. Brandt Dang MD Referring Provider [phone] Dr. Jaclyn Siddiqui MD Referring Provider Allergies Allergy Classification Reported Allergen(s) Allergy Type Date of Onset Reaction(s) Facility Anti-Epileptic Agents (12 sources) Primidone; Translations: [Primidone *ANTICONVULSANTS* ] Drug All[facility] Work Phone: Comment on above: anaphylaxis beef allergenic extract (12 sources) beef allergenic extract; Translations: [Beef (Diagnostic) *DIAGNOSTIC PRODUCTS*] Drug Allergy [facility]; [facility] Work Phone: Comment on above: beef- derived produc ts Unclassified (20 sources) Betachron *BETA BLOCKERS*; Translations: [Betachron *BETA BLOCKERS*] Allergy to drug (finding) [facility]; [facility] Work Phone: Comment on above: reports spikes blood pressure Unclassified (20 sources) Mastisol Adhesive *DERMATOLOGICALS* ; Translations: [Mastisol Adhesive *DERMATOLOGICALS* ] Allergy to drug (finding) [facility]; [facility] Work Phone: Comment on above: rash Unclassified (20 sources) Molds/Smuts Extract *ALLERGENIC EXTRACTS/BIOLOGIC ALS MISC*; Translations: [Molds/Smuts Extract *ALLERGENIC EXTRACTS/BIOLOGIC ALS MISC*] Allergy to drug (finding) [facility]; [facility] Work Phone: Comment on above: difficulty breathing and wheezing Unclassified (20 sources) Penicillin V *PENICILLINS*; Translations: [Penicillin V *PENICILLINS*] Allergy to drug (finding) [facility]; [facility] Work Phone: Comment on above: rash (20 sources) beef allergenic extract; Translations: [Beef (Diagnostic) *DIAGNOSTIC PRODUCTS*] Drug Allergy 07-17-19 Unknown [facility]; [facility] Work Phone: Comment on above: beef- derived produc ts (20 sources) Primidone; Translations: [Primidone *ANTICONVULSANTS* ] Drug Allergy 07-17-19 Anaphylaxis [facility]; [facility] Work Phone: Comment on above: anaphylaxis (20 sources) Statins Support *DIETARY PRODUCTS/DIETARY MANAGEMENT PRODUCTS*; Translations: [Statins Support *DIETARY PRODUCTS/DIETARY MANAGEMENT PRODUCTS*] Allergy to drug (finding) [facility]; [facility] Work Phone: (20 sources) montelukast; Translations: [Montelukast Sodium *ANTIASTHMATIC AND BRONCHODILATOR AGENTS*] Drug Allergy 03-11-19 Other [facility]; [facility] Work Phone: Comment on above: could not urinate, w as dizzy and confused (20 sources) Ethanol Drug Allergy 07-17-19 [facility] (20 sources) methyl salicylate Drug Allergy 07-17-19 22 [facility] (20 sources) Mold Extract Drug Allergy 07-17-19 Difficulty Breathing/Whee zing [facility] Comment on above: Molds/Smuts Extract (20 sources) Penicillin V Drug Allergy 07-17-19 [facility] (20 sources) gum mastic; Translations: [gum mastic] Allergy to substance 07-17-19 [facility] (20 sources) storax; Translations: [storax] Allergy to substance 07-17-19 22 [facility] (6 sources) Statins Support Allergy to substance 07-17-19 Unknown [facility] Work Phone: (6 sources) Betachron Propensity to adverse reactions 07-17-19 Spikes in BP [facility] Work Phone: (20 sources) Pollen; Translations: [Pollens] Allergy to substance (finding) [facility]; [facility] Work Phone: Comment on above: Runny nose, and both bilateral watery eye's (20 sources) beta-Blocking agent; Translations: [BETA-BLOCKERS (BETA-ADRENERGIC BLOCKING AGTS)] Drug Allergy 12-06-19 Intolerance [facility] (20 sources) Black Pepper Preparation; Translations: [BLACK PEPPER] Drug Allergy 05-14-19 Unknown [facility] Work Phone: (20 sources) cultivated mushroom extract; Translations: [MUSHROOM] Drug Allergy 05-14-19 Rash [facility] Work Phone: (20 sources) HMG-CoA reductase inhibitor; Translations: [EVJPOHT-QDP-ZNP REDUCTASE INHIBITORS] Drug Allergy 12-06-19 21 GI Upset [facility] (19 sources) Penicillins; Translations: [PENICILLINS] Drug Allergy 12-06-19 21 [facility] (20 sources) Seasonal allergy; Translations: [SEASONAL ALLERGIES] Allergy to substance 05-14-19 Unknown [facility] Work Phone: (20 sources) Beef Containing Products; Translations: [BEEF CONTAINING PRODUCTS] Drug Allergy 05-14-19 Other: See Comments [facility] Work Phone: (20 sources) Cat Dander; Translations: [CAT DANDER] Drug Allergy 05-14-19 Other: See Comments [facility] Work Phone: (20 sources) Horse Dander; Translations: [HORSE DANDER] Drug Allergy 05-14-19 Other: See Comments [facility] Work Phone: (4 sources) Adrenergic Beta-Antagonists Propensity to adverse reactions 03-11-19 23 Other [facility] (14 sources) Hgkpysb-Orw-Heh Reductase Inhibitor Allergy to substance 03-11-19 NEEDS FOLLOW-UP [facility] (20 sources) cycloSPORINE Drug Allergy [facility]; [facility] Work Phone: (20 sources) Adhesive Tape-Silicones; Translations: [ADHESIVE TAPE-SILICONES] Drug Allergy 02-15-20 24 [facility] (10 sources) Penicillins Drug Allergy 12-06-19 [facility] (1 source) beta-Blocking agent; Translations: [beta blockers] Drug allergy [facility] (1 source) HMG-CoA reductase inhibitor; Translations: [statins] Drug allergy [facility] (1 source) Penicillin; Translations: [penicillin] Drug Allergy [facility] (1 source) Black Pepper Preparation Drug Allergy 10-10-19 25 [facility] (1 source) methyl salicylate Drug Allergy 10-10-19 25 [facility] (1 source) Mold Extract Drug Allergy 10-10-19 25 [facility] (1 source) montelukast Drug Allergy 10-10-19 25 [facility] (1 source) Penicillin Drug Allergy 10-10-19 [facility] (1 source) Primidone Drug Allergy 10-10-19 [facility] (1 source) Vpkuwzx-Idv-Ywe Reductase Inhibitor Drug allergy (disorder) 10-10-19 [facility] (1 source) alcohol Drug allergy (disorder) 10-10-19 [facility] (1 source) beef derived (bovine) Drug allergy (disorder) 10-10-19 [facility] Medications Current Medications Medication Drug Class(es) Dates Sig (Normalized) Sig (Original) acetaminophen 325 mg oral capsule (1 source) Start: 05-31-2020 Tylenol 325 mg oral capsule Dose : 650 mg =, Oral, q4h, PRN Pain, scale 1-3, 0 Refill(s) Start Date: 05/31/20 Status: Ordered Medication Dispense Status: Completed Total Allowed Fills: 1 Fills Dispensed: 0 aspirin 81 mg oral tablet (1 source) Platelet Aggregation Inhibitor, Nonsteroidal Anti-inflammatory Drug Start: 05-31-2020 aspirin Dose : 81 mg = 1 tab(s), Oral, BIDM, 0 Refill(s) Start Date: 05/31/20 Status: Ordered Medication Dispense Status: Completed Total Allowed Fills: 1 Fills Dispensed: 0 Blood Pressure Test Kit-Medium (1 source) Start: 04-19-2023 Blood Pressure Test Kit-Medium Active 0 .Route April 19, 2023 12:00am As directed Blood Pressure Test Kit-Medium kit (7 sources) Start: 04-19-2023 Blood Pressure Test Kit-Medium kit Active 0 .Route 1 April 19, 2023 12:00am Primary hypertension Essential (primary) hypertension As directed Start: 04-19-2023 Blood Pressure Test Kit-Medium kit Active 0 .Route 1 April 19, 2023 1:00am Primary hypertension Essential (primary) hypertension As directed Start: 04-19-2023 Blood Pressure Test Kit-Medium kit Active 0 .Route 1 April 19, 2023 1:00am As directed cephalexin 500 mg oral capsule (20 sources) Cephalosporin Antibacterial Start: 01-05-2024 End: 01-12-2024 take 1 capsule by mouth three times daily cephALEXin (KEFLEX) 500 mg capsule Indications: Skin cyst Take 1 capsule by mouth three times a day for 7 days. 21 capsule 01/05/2024 01/12/2024 Active Start: 09-15-2021 End: 09-18-2021 take 1 capsule by mouth every twelve hours Cephalexin 500 MG Oral Capsule 1 (one) Capsule q12hrs for 5 days Quantity: 10 {Capsule} Refills: 0 Ordered: 18-Sep-2021 Ann-Marie Retana CMA Start : 15-Sep-2021 End : 18-Sep-2021 Inactive Comments: 1 tab bid for 5 daysUTI- cx sent Start: 05-18-2021 End: 05-25-2021 take 1 capsule by mouth every twelve hours Cephalexin 500 MG Oral Capsule 1 (one) Capsule q12hrs for 7 days Quantity: 14 {Capsule} Refills: 0 Ordered: 18-May-2021 Dhaval Israel Start : 18-May-2021 End : 25-May-2021 Inactive Comment on above: 1 tab bid for 5 days UTI- cx sent cholecalciferol 1.25 mg oral capsule (20 sources) Vitamin D Start: 02-13-2024 End: 10-09-2024 take 1 capsule by mouth every week Start: 11-04-2023 End: 02-02-2024 take 1 capsule by mouth once daily Cholecalciferol (Vitamin D3) 25 mcg (1,000 unit) capsule Discontinued 25 ug PO daily 90 90 0 November 03, 2023 11:00pm February 01, 2024 12:00am February 02, 2024 12:09am Low bone density Disorder of bone density and structure, unspecified for supplementation Start: 03-17-2023 End: 06-15-2023 take 1 capsule by mouth once daily Cholecalciferol (Vitamin D3) 25 mcg (1,000 unit) capsule Discontinued 25 ug PO DAILY 90 90 0 March 17, 2023 12:00am June 13, 2023 11:00pm June 14, 2023 11:10pm Right knee pain Pain in right knee low bone density Start: 02-06-2021 take 1 tablet by leatha once daily Vitamin D3 125 MCG (5000 UT) Oral Tablet 1 (one) Tablet daily for 0 days Quantity: 30 {Tablet} Refills: 0 Ordered: 18-Mar-2021 Killian Oliveira LPN Start : 06-Feb-2021 Active take 1 capsule by mouth once Vit mathews D 50 MCG (2000 UT) Oral Capsule (50 MCG (2000 UT)) Inactive cholecalciferol, vitamin D3, (VITAMIN D3 ORAL) (20 sources) cholecalciferol, vitamin D3, (VITAMIN D3 ORAL) Take 400 mg by mouth. Active cholecalciferol, vitamin D3, (VITAMIN D3 ORAL) Take 400 mg by mouth. 0 Active Comment on above: Take 400 mg by mouth . docusate sodium 100 mg oral capsule (1 source) Start: 05-31-2020 Colace 100 mg oral capsule Dose : 100 mg = 1 cap(s), Oral, BID, PRN Constipation, 0 Refill(s) Start Date: 05/31/20 Status: Ordered Medication Dispense Status: Completed Total Allowed Fills: 1 Fills Dispensed: 0 enteric contrast (will be provided with radiology test) (3 sources) Start: 01-03-2024 End: 01-04-2024 enteric contrast (will be provided with radiology test) Indications: Left lower quadrant abdominal pain For CT ABD/PEL W IVCON Routine order Administer, As Directed One Time Only, via Oral, Rectal, both Oral and Rectal, Enteric Tube, Stoma or Indwelling Catheter, Enteric Contrast as designated per enteric contrast guidelines 1 Each 01/03/2024 01/04/2024 Active famotidine 20 mg oral tablet (20 sources) Histamine-2 Receptor Antagonist Start: 05-30-2020 take 1 tablet by mouth once daily End: 06-06-2024 take 1 tablet by mouth twice daily famotidine (PEPCID) 20 mg tablet Take 20 mg by mouth twice daily. 06/06/2024 Discontinued Comment on above: Mail order. Take 20 mg by mouth twice daily. folic acid 0.4 mg oral tablet (20 sources) Start: 04-09-2021 take 0.4 mg by mouth once daily Start: 04-09-2021 take 0.4 mg by mouth once daily Folic Acid Active 0.4 MG PO DAILY April 09, 2021 12:00am End: 06-06-2024 folic acid 400 mcg tablet Fo lic Acid 400mg Active 06/06/2024 Discontinued (Course of therapy completed) Folic Acid 400mg Active Comment on above: Folic Acid 400mg Act sylvia Four-wheel rollator (7 sources) Start: 05-14-2024 Four-wheel rollator Active 0 .Route .MEDSUPPLY 1 0 May 13, 2024 11:00pm Abnormality of gait and mobility Unspecified abnormalities of gait and mobility Abnormal gait (R26.9) As directed Start: 05-14-2024 Four-wheel rol lator Active 0 .Route .MEDSUPPLY 1 0 May 14, 2024 12:00am Abnormality of gait and mobility Unspecified abnormalities of gait and mobility Abnormal gait (R26.9) As directed Start: 05-14-2024 Four-wheel rol lator Active 0 .Route .MEDSUPPLY 1 May 14, 2024 12:00am As directed iv contrast (will be provided with radiology test) (3 sources) Start: 01-03-2024 End: 01-04-2024 iv contrast (will be provided with radiology test) Indications: Left lower quadrant abdominal pain CT ABD/PEL -Inject, intravenously, once for 1 dose.No IV access, insert saline lock prior to the beginning of sedation, infusion, injection of imaging exam. Discontinue saline lock post exam. If Pt. has a central line or IVAD, may access for administration according to line specific nursing protocol. Once exam is complete flush line and de-access according to line specific nursing protocol in the CT contrast administration guidelines link. 1 Each 01/03/2024 01/04/2024 Active levoFLOXacin 500 mg oral tablet (20 sources) Quinolone Antimicrobial Start: 07-16-2021 Levofloxacin Active EACH PO July 16, 2021 12:00am Start: 03-18-2021 End: 04-08-2021 take 1 tablet by mouth once daily Levaquin 500 MG Oral Tablet 1 (one) Tablet daily for 7 days Quantity: 7 {Tablet} Refills: 0 Ordered: 08-Apr-2021 Gravius CAR ESCORT Ann-Marie Start : 18-Mar-2021 End : 08-Apr-2021 Inactive metoprolol tartrate 25 mg oral tablet (2 sources) beta-Adrenergic Sal Start: 11-19-2024 take 1 tablet by mouth once daily in the morning montelukast 10 mg oral tablet (1 source) Leukotriene Receptor Antagonist Start: 07-16-2021 Montelukast Active TAB PO July 16, 2021 12:00am potassium chloride 10 meq extended release oral tablet (20 sources) Start: 12-17-2021 take 1 tablet by mouth every other day Start: 11-25-2021 take 1 tablet by leatha th every other day Potassium Chloride ER 10 MEQ Oral Tablet Extended Release 1 (one) Tablet every other day for 0 days Quantity: 15 {Tablet} Refills: 4 Ordered: 25-Nov-2021 Roma GEORGE Kristina Brandon DO Kristina Start : 25-Nov-2021 Active Start: 10-06-2021 take 1 tablet by leatha th once daily Potassium Chloride ER 10 MEQ Oral Tablet Extended Release 1 (one) Tablet daily for 10 days Quantity: 10 {Tablet} Refills: 0 Ordered: 06-Oct-2021 Kristina Brandon DO, DO Kristina Start : 06-Oct-2021 Active Start: 10-01-2021 take 1 tablet by leatha th once daily Potassium Chloride ER 10 MEQ Oral Tablet Extended Release 1 (one) Tablet daily for 10 days Quantity: 10 {Tablet} Refills: 0 Ordered: 01-Oct-2021 Aster Malcolm LPN Start : 01-Oct-2021 Active Comment on above: Mail order. prochlorperazine 5 mg oral tablet (20 sources) Phenothiazine Start: 08-13-2020 take 5-10 mg by mouth every six hours as needed Comment on above: Mail order. Medicati on taken as needed. R11.0 Completed/Discontinued Medications Medication Drug Class(es) Dates Sig (Normalized) Sig (Original) [id number] 200 actuat albuterol 0.09 mg/actuat metered dose inhaler (20 sources) beta2-Adrenergic Agonist Start: 12-29-2021 take 2 puff(s) by inhalation every four hours as needed albuterol sulfate 90 mcg/actuation inhalation HFA Aerosol with Adapter 2 (two) Puff q4hrs PRN for 0 days Quantity: 1 {Each} Refills: 4 Ordered: 19-Mar-2022 Roma GEORGE Kristina Pandyavaleria GEORGE Kristina Start : 19-Mar-2022 Active Comments: Mail order. Start: 12-29-2021 take 2 puff(s) by in halation every four hours as needed Albuterol Sulfate HFA 108 (90 Base) MCG/ACT Inhalation Aerosol Solution 2 (two) Puff q4hrs PRN for 0 days Quantity: 1 {Each} Refills: 3 Ordered: 1-Nov-2022 Roma GEORGE Kristina Brandon DO Kristina Start : 29-Dec-2021 Active Comments: Mail order. Start: 07-16-2021 Start: 07-16-2021 take 1 puff(s) by in halation every four hours Albuterol Sulfate Active 2 PUFF INHALATION Q4H July 15, 2021 11:00pm Start: 03-13-2021 take 2 puff(s) by in halation every four hours as needed Albuterol Sulfate HFA 108 (90 Base) MCG/ACT Inhalation Aerosol Solution 2 (two) Puff q4hrs PRN for 0 days Quantity: 1 {Each} Refills: 3 Ordered: 13-Mar-2021 Killian Oliveira LPN Start : 13-Mar-2021 Active Comments: Mail order. albuterol HFA 90 mcg/actuation HFA Inhale as instructed. Active Comment on above: Mail order. Inhale as instructed . azithromycin 250 mg oral tablet (20 sources) Macrolide Antimicrobial Start: 01-26-2023 End: 04-19-2023 Azithromycin 250 mg tablet Discontinued 250 mg PO daily 12 January 26, 2023 12:00am April 19, 2023 10:53am 2 tablets today, then 1 tablet daily on days 2 through 11 Start: 08-23-2022 End: 10-15-2022 Zithromax Z-Orion 250 mg oral tablet 1 Packet as directed on dose pack;For 250 mg dose pack: take 500 mg today (day 1), then 250 mg for 4 days (days 2-5) for 0 days Quantity: 1 {Packet} Refills: 0 Ordered: 15-Oct-2022 Sasha Medina CMA Start : 23-Aug-2022 End : 15-Oct-2022 Inactive busPIRone hydrochloride 5 mg oral tablet (20 sources) Start: 12-24-2023 End: 06-06-2024 take 1 tablet by mouth every twelve hours busPIRone (BUSPAR) 5 mg tablet Take 1 tablet by mouth every 12 hours. 12/24/2023 06/06/2024 Discontinued Start: 09-07-2023 End: 10-09-2024 take 1 tablet by mouth twice daily Buspirone 5 mg tablet Discontinued 5 mg PO TWICE A DAY 60 9 February 13, 2024 1:56pm October 09, 2024 12:34pm Start: 08-22-2023 End: 09-07-2023 take 1 tablet by mouth twice daily Buspirone 10 mg tablet Discontinued 10 mg PO TWICE A DAY 60 7 August 21, 2023 11:00pm September 07, 2023 3:14pm Start: 12-02-2022 End: 08-22-2023 take 1 tablet by mouth twice daily Buspirone 5 mg tablet Discontinued 5 mg PO TWICE A DAY 60 6 February 10, 2023 3:45pm August 22, 2023 12:41pm coumpounded estrogen cream from [facility] (15 sources) coumpounded estr ogen cream from [facility] Active cycloSPORINE 0.9 mg/ml ophthalmic solution (20 sources) Calcineurin Inhibitor Immunosuppressant Cequa 0.09 % ophthal tesfaye (eye) Dropperette Twice a day. (0.09 %) Inactive Comments: Dr. Owen Comment on above: Dr. Brayden Shaffer (20 sources) Edmund Shaffer Activ e doxycycline anhydrous 40 mg delayed release oral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 tissue, unspecified] 01-05-2024 Episodic Other skin disorders (2 sources) Disorder of skin of upper limb; Translations: [Disorder of the skin and subcutaneous tissue, unspecified] 02-16-2024 Episodic Other upper respiratory disease (20 sources) Bleeding from nose; Translations: [Epistaxis] 03-19-2022 Episodic Comment on above: happening almost alexa ly, using vaseline and saline per ENT. has not gone back since cauterized. She needs to go back if keeps on bleeding. happening almost alexa ly, using vaseline and saline per ENT. has not gone back since cauterized. She needs to go back if keeps on bleeding.-please see ENTBP ok Other upper respiratory disease (14 sources) Anterior epistaxis; Translations: [Epistaxis] 02-15-2022 Episodic Other upper respiratory disease (20 sources) Change in voice; Translations: [Hoarseness or changing voice] 08-23-2022 Episodic Comment on above: stay hydrated, humid ification w/ CPAP, Other upper respiratory infections (20 sources) Sinusitis; Translations: [Sinusitis] Resolved: 3 03-19-2022 Chronic Other upper respiratory infections (20 sources) Acute laryngitis; Translations: [Acute laryngitis without obstruction] 08-23-2022 Episodic Comment on above: suspect 2/2 viral in fection. no steroids but will do z orion, if not improving will send in steroids since copd and asthma. Otitis media and related conditions (20 sources) Dysfunction of bilateral eustachian tubes; Translations: [ETD (Eustachian tube dysfunction), bilateral] Resolved: 3 04-16-2022 Episodic Pneumonia (except that caused by tuberculosis or sexually transmitted disease) (20 sources) Pneumonia; Translations: [Pneumonia] 03-20-2021 Episodic Comment on above: on levaquin, and med rol, neg for covid Pneumonia (except that caused by tuberculosis or sexually transmitted disease) (20 sources) Pneumonia (except that caused by tuberculosis or sexually transmitted disease) Residual codes; unclassified (20 sources) Hypoxia; Translations: [Nocturnal hypoxia] 07-15-2020 Chronic Residual codes; unclassified (20 sources) Obstructive sleep apnea syndrome; Translations: [CYNTHIA on CPAP] 07-15-2020 Chronic Comment on above: wears cpap- sees dr Ayala Residual codes; unclassified (5 sources) Obstructive sleep apnea (adult) (pediatric); Translations: [Obstructive sleep apnea (adult)(pediatric)] Onset: 1 01-17-2023 Chronic Residual codes; unclassified (20 sources) Body mass index 20-24 - normal; Translations: [BMI 22.0-22.9, adult] Resolved: 2 07-15-2020 Episodic Residual codes; unclassified (20 sources) Non-smoker; Translations: [Nonsmoker] 07-15-2020 Episodic Residual codes; unclassified (20 sources) Postmenopausal state; Translations: [Postmenopausal] 11-13-2021 Episodic Comment on above: last dexa 2021 Screening and history of mental health and substance abuse codes (2 sources) Encounter for screening for depression; Translations: [Encounter for screening examination for other mental health and behavioral disorders] Onset: 5 Episodic Spondylosis; intervertebral disc disorders; other back problems (20 sources) Low back pain; Translations: [Low back pain] Episodic Superficial injury; contusion (20 sources) Splinter in foot; Translations: [Splinter of foot] Resolved: 2 07-03-2021 Episodic Comment on above: with serrated tweeze r 2 plinters removed from bottom right foot without difficulty with serrated tweeze r 2 plinters removed from bottom right foot without difficulty- patient instructed to wath for signs of infection redness draiange swelling pain Unclassified (20 sources) Unclassified (20 sources) Nonsmoker Unclassified (20 sources) CYNTHIA on CPAP Unclassified (20 sources) History of kidney stones Unclassified (20 sources) History of diverticulitis Unclassified (20 sources) Hyperlipemia Unclassified (20 sources) Prediabetes Unclassified (20 sources) Benign joint hypermobility Unclassified (20 sources) Pancreatic divisum Unclassified (20 sources) Frequent urinary tract infections Unclassified (20 sources) Nocturnal hypoxia Unclassified (20 sources) 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) Renal cyst Unclassified (20 sources) BMI 22.0-22.9, adult Unclassified (20 sources) Enchondroma Unclassified (20 sources) Rectal abnormality Unclassified (20 sources) History of left hip replacement Unclassified (20 sources) BMI 23.0-23.9, adult Unclassified (20 sources) Coarse tremors Unclassified (20 sources) Balance disorder Unclassified (20 sources) Encounter for hepatitis C virus screening test for high risk patient Unclassified (20 sources) Infiltrate of lung present on imaging of chest Unclassified (20 sources) History of ITP Unclassified (9 sources) Age AND/OR growth finding; Translations: [65 years of age or older] 08-27-2021 Unclassified (11 sources) Acute COVID-19 Unclassified (11 sources) Chest heaviness Urinary tract infections (20 sources) Recurrent urinary tract infection; Translations: [Frequent urinary tract infections] 07-15-2020 Episodic Urinary tract infections (20 sources) Urinary tract infections Viral infection (20 sources) Anal warts; Translations: [Anal condyloma] Resolved: 2 07-15-2020 Episodic Comment on above: Anal condyloma 01-09, Dr. Heidi Og in [facility] [place] Anal condyloma 01-09, Dr. Heidi Og in [facility] [place], need to send to new passenger service manager Past or Other Problems Problem Classification Problem Date Documented Da te Episodic/Chronic Abdominal pain (20 sources) Left upper quadrant pain; Translations: [LUQ pain] Onset: 01-03-2024 Resolved: 10-15-2022 11-30-2021 Episodic Comment on above: after miralax it imp roved Administrative/social admission (5 sources) Persons encountering health services in other specified circumstances; Translations: [Other reasons for seeking consultation] Onset: 06-06-2024 01-17-2023 Episodic Asthma (20 sources) Asthma Diabetes mellitus without complication (20 sources) Prediabetes; Translations: [Prediabetes] Onset: 01-04-2024 Resolved: 07-16-2020 07-15-2020 Episodic Headache; including migraine (20 sources) Headache; including migraine Other gastrointestinal disorders (1 source) Outlet dysfunction constipation; Translations: [Outlet dysfunction constipation] Onset: 03-14-2024 Episodic Other skin disorders (1 source) Follicular cyst of the skin and subcutaneous tissue, unspecified; Translations: [Skin cyst] Onset: 01-18-2024 Episodic Residual codes; unclassified (1 source) Acquired absence of spleen; Translations: [H/O splenectomy] Onset: 06-06-2024 Episodic Unclassified (20 sources) Pregnancies (); Translations: [Pregnancies ()] 07-15-2020 Comment on above: 1 Unclassified (20 sources) Decreased GFR Unclassified (20 sources) Encounter for screening mammogram for breast cancer (Renamed from Encounter for screening mammogram for malignant neoplasm of breast) Unclassified (20 sources) Unspecified Diagnosis 03-13-2021 Unclassified (20 sources) Chest pressure Unclassified (19 sources) Vaginal itching Unclassified (16 sources) Splinter of foot Unclassified (20 sources) Sebaceous cyst of right axilla Unclassified (2 sources) Low serum potassium Unclassified (1 source) Patient encounter status 08-14-2024 Viral infection (20 sources) Disease caused by 2019-nCoV Results Test Name Value Interpretation Reference Range Facility Office Visit Reporton 2024 Office Visit Report [facility] [address] [place] [address] OFFICE VISIT Date of Service: 12/17/24 MR#: [id number] Acct: [id number] Patient: BITA THOMPSON Rep #: [id number] : 1945 Provider: Dr. Brandt blackman MD Age/Sex: 79/F Location: [facility] Status: Signed Intake Vital Signs 10/18/24 11:26 12/17/24 13:12 Height 5 ft 6 in Weight: 148 lb 147 lb 3 oz BMI 23.8 BP 165/70 H 156/74 H Blood Pressure Location Lt brachial Lt brachial Position Sitting Sitting Respiration 16 17 Pulse 73 88 Pulse Source Monitor Monitor Temp 98.9 F 98.0 F Temp Source Temporal Temporal Pulse Oximetry (%) 97 97 Oxygen Delivery Method room air room air Intake Visit Reasons: B12 inject Chief Complaint: Allergies primidone Allergy (Severe, Verified 10/09/24 13:05) Anaphylaxis montelukast Allergy (Intermediate, Verified 10/09/24 13:05) Other alcohol (From Mastisol Adhesive) Allergy (Unknown, Verified 10/09/24 13:05) Rash beef derived (bovine) Allergy (Unknown, Verified 10/09/24 13:05) Unknown gum mastic (From Mastisol Adhesive) Allergy (Unknown, Verified 10/09/24 13:05) Rash methyl salicylate (From Mastisol Adhesive) Allergy (Unknown, Verified 10/09/24 13:05) Rash mold Allergy (Unknown, Verified 10/09/24 13:05) Difficulty Breathing/Wheezing penicillin V Allergy (Unknown, Verified 10/09/24 13:05) Rash storax (From Mastisol Adhesive) Allergy (Unknown, Verified 10/09/24 13:05) Rash Klciwsb-UWS-EpV Reductase Inhibitor Allergy (Verified 10/09/24 13:05) NEEDS FOLLOW-UP black pepper Adverse Reaction (Unknown, Verified 10/09/24 13:05) UNKNOWN Have you fallen in the past year?: Yes Office Meds cyanocobalamin (vitamin B-12) 1,000 mcg/mL injection solution Performing Provider: Barndt Dang MD Performing Location: [facility] Administered by: Estephania Ledesma on 12/17/24 13:13 Dose Route Admin Location Dispensed Lot Number Expiration Date Package NDC NDC Paving Rammer 1,500 mcg IM left deltoid 1.5 mL [id number] 06/27/26 89674-592-82 [id number] SUKHWINDER REES Comments: The patient presents for B12 injection for treatment of history of Vitamin B12 deficiency. She has history of B12 vitamin deficiency. Her last B12 injection was of benefit for her history of B12 vitamin deficiency. The patient is awake and alert. B12 1500mcg IM was administered today. There were no complications. Assessment and Plan Assessment and Plan (1) Fatigue: Status: Chronic Qualifiers: Fatigue type: chronic, unspecified Qualified Code(s): R53.82 - Chronic fatigue, unspecified Orders: Orders Vitamin B12 Today R53.82 - Chronic fatigue, unspecified Clinical Quality Measures Falls Risk Screening/Assistive Devices Have you fallen in the past year?: Yes 12/17/24 2008 Date Brandt Garcia Signature: Date (if applicable) [facility] ([facility] ) ----- BITA THOMPSON ([id number]) 1945 F Date Time Provider Department 12/06/24 2:20 PM [facility] During your visit today, we recorded the following information about you: Pulse Blood pressure Weight 72/minute 171/74 68 kg Eben Piper, DEFENSE ANALYST.VP CLINICAL 12/06/2024 3:23 PM Signed Chief Complaint Patient presents with: 6 Month Exam HPI Bita Thompson is a 79 year old female who presents here today for Above Complaints.. HTN: Patient is compliant with meds Yes, lisinopril and recently started lopressor Monitors bp at home: Yes, not often 140s-165/ 70s Denies side effects: No. Chest pain: Yes. Dyspnea: No. Edema: No. Palpitations: No. Syncope: No. Headache: No. Dizziness: No. Last month propranolol was discontinued, and she states that she was started on metoprolol tartrate for her tremors. States that since D/C the propranolol has had intermittent tightness across chest that occurs 2-3 times weekly, towards the end of the day and especially on busy days. Also noticed a recent cough. Fell 2 weeks ago and was seen in the ED. Had Head CT due to head injury. States that fall occurred because her leg did not want to move. Denies LOC or issues since. GERD- takes pepcid daily at night, does not remember when she last had a flare. Granddaughter lives at home with patient and her who has Alzheimers. Would like to see a counselor. Dr. Dang prescribes her Buspar, also was the one to DC her propranolol and start metoprolol. She received Vitamin B12 shots from his office Past medical history, appointments, medications, allergies reviewed. Previous Medical History PAST MEDICAL HISTORY Diagnosis Date Anal condyloma Closed fibular fracture right Environmental allergies Essential hypertension Essential tremor History of ITP History of skin cancer Mixed hyperlipidemia CYNTHIA (obstructive sleep apnea) Osteopenia Stage 2 chronic kidney disease Statin intolerance Previous Surgical History PAST SURGICAL HISTORY Procedure Laterality Date BACK SURGERY HX L4-5, fx spine ELBOW SURGERY HX LAPAROSCOPIC SPLENECTOMY NASAL SINUS SURGERY HX REMOVAL GALLBLADDER TOTAL ABDOM HYSTERECTOMY 1997 Family History FAMILY HISTORY Problem Relation Age of Onset Hypertension Mother Tremor Mother other (smoker) Mother other (manic depression) Mother Stroke Mother Colon Cancer Father Cancer Father colon Hyperlipidemia Father other (smoker) Father Stroke Father Essential Tremor Sister Hypertension Sister Hyperlipidemia Sister Essential Tremor Brother Hyperlipidemia Brother Hypertension Brother Arthritis Maternal Grandmother Stroke Maternal Grandmother Essential Tremor Maternal Grandfather Stroke Maternal Grandfather Cancer Paternal Grandfather colon Patient Allergies ALLERGIES Allergen Reactions Adhesive Tape-Silic* Unknown Beef Containing Pro* Other: See Comments Beta-Blockers (Beta* Intolerance Black Pepper Unknown Cat Dander Other: See Comments Horse Dander Other: See Comments Mushroom Rash Penicillins Hives Seasonal Allergies Unknown Xkyfccz-Jle-Bnt Red* GI Upset Current Medications Current Outpatient Medications on File Prior to Visit Medication Sig fenofibrate nanocrystallized (TRICOR) 145 mg tablet Take 1 tablet by mouth once daily. lisinopril (ZESTRIL) 20 mg tablet Take 1 tablet by mouth two times a day. famotidine (PEPCID) 20 mg tablet Take 1 tablet by mouth once daily. busPIRone (BUSPAR) 5 mg tablet Take 1 tablet by mouth two times a day. albuterol HFA 90 mcg/actuation HFA Inhale as instructed. cholecalciferol, vitamin D3, (VITAMIN D3 ORAL) Take 400 mg by mouth. Unknown frequency No current facility-administered medications on file prior to visit. Social History SOCIAL HISTORY[1] Review of Symptoms REVIEW OF SYSTEMS SEE HPI EXAM: BP 171/74 (BP Position: Sitting) Pulse 72 Wt 68 kg (149 lb 14.6 oz) BMI 24.95 kg/m? General Appearance: Well appearing, alert, in no acute distress, well-hydrated, well nourished.. Skin: Skin color, texture, turgor normal, no suspicious rashes or lesions. Head: Normocephalic, no masses, lesions, tenderness or abnormalities. Neck: Supple, no adenopathy; thyroid symmetric, normal size, no bruits. Lungs: Lungs clear to auscultation. No wheezing, rhonchi, rales.. Heart: RRR without murmur, gallop, or rubs. No ectopy. Abdomen: Normal abdominal exam, Abdomen soft, non-tender. Bowel sounds normal. No masses, organomegaly. Neurologic: Positive findings: tremors, ambulates with a cane. Health Maintenance List Hib Vaccine(1 of 1 - Risk 1-dose series) Never done Depression Screening Never done Anxiety Screening Never done DTaP,Tdap,Td Vaccine(2 - Td or Tdap) due on 03/04/2018 Meningococcal B Vaccine(3 of 5 - Increased Risk Trumenba 3-dose ser (more content not included)... Normal [facility] SCREENING W TOMOon 11-22 EILO SCREENING W STEFFI * * *Final Report* * * DATE OF EXAM: Nov 22 2024 2:11PM [facility] - [facility] SCREENING W STEFFI / PROCEDURE REASON: Encounter for screening mammogram for malignant neoplasm of breast * * * * Physician Interpretation * * * * RESULT: [address] [address] [place] [address] #[id number] - ELIO SCREENING W STEFFI HISTORY: 79 year-old patient presents for screening. Patient is asymptomatic in both breasts. Patient states no personal history of breast cancer. COMPARISON STUDIES: The present examination has been compared to prior imaging studies dated 11/16/2022 (mammogram) and 11/18/2023 (mammogram). MAMMOGRAM TECHNIQUE: The study was acquired using full field digital technology and interpreted from soft copy. Digital Breast Tomosynthesis (DBT) images were obtained and used to assist in the interpretation of this examination. MAMMOGRAM FINDINGS: There are scattered areas of fibroglandular density. No suspicious masses, calcifications or other abnormalities are seen in either breast. There are no significant interval changes. IMPRESSION: There is no mammographic evidence of malignancy in either breast. Routine screening mammogram is recommended. Annual mammogram will be due in 1 year. BI-RADS Category 1: Negative RISK: Based on the Tyrer-Cuzick (TC) risk assessment model, this patient has a 3.4% lifetime risk of developing breast cancer, meaning they are at average risk for developing breast cancer. However, this is only an estimate based on available history provided on the patient's questionnaire. We encourage all patients to talk with their providers about these results, further recommendations for managing breast health, and appropriate supplemental screening options if the patient has dense breast tissue. Interpreting Radiologist: aKyley Smith M.D. Electronically signed on: 11/26/2024 Licensed Club Manager: HAYDEE Transcribe Date/Time: Nov 22 2024 1:58P Dictated by: KAYLEY SMITH MD This examination was interpreted and the report reviewed and electronically signed by: KAYLEY SMITH MD on Nov 26 2024 1:45PM EST [id number] [facility] Tele[facility] ([facility]) ----- RENEBITA ([id number]) 1945 F Date Time Provider Department 11/20/24 INDIO MEDINA During your visit today, we recorded the following information about you: Catrachita Ng RN 11/20/2024 9:45 AM Signed Faxed mammogram order to [facility] scheduling, per scheduling office request. Allergies As of Date: 11/20/2024 Noted Allergy Reaction ADHESIVE TAPE-SILICONES 02/15/2024 16 - Unknown BEEF CONTAINING PRODUCTS 05/13/2020 14 - Other: See Comments BETA-BLOCKERS (BETA-ADRENERGIC BL*12/05/2020 5 - Intolerance BLACK PEPPER 05/13/2020 16 - Unknown CAT DANDER 05/13/2020 14 - Other: See Comments HORSE DANDER 05/13/2020 14 - Other: See Comments MUSHROOM 05/13/2020 2 - Rash PENICILLINS 12/05/2020 4 - Hives SEASONAL ALLERGIES 05/13/2020 16 - Unknown [id number]-EZI-AVA REDUCTASE INHIBIT*12/05/2020 8 - GI Upset Date Reviewed: 08/22/2024 Reviewed by: Guicho Riley LPN - Fully Assessed Reason for Visit: Faxed to [facility] scheduling [Other] Prescriptions as of 11/20/2024 - fenofibrate nanocrystallized (TRICOR) 145 mg tablet Take 1 tablet by mouth once daily. - lisinopril (ZESTRIL) 20 mg tablet Take 1 tablet by mouth two times a day. - famotidine (PEPCID) 20 mg tablet Take 1 tablet by mouth once daily. - busPIRone (BUSPAR) 5 mg tablet Take 1 tablet by mouth two times a day. - albuterol HFA 90 mcg/actuation HFA Inhale as instructed. - cholecalciferol, vitamin D3, (VITAMIN D3 ORAL) Take 400 mg by mouth. Unknown frequency Problem List As Of Date 11/20/2024 Noted Resolved History of ITP [Z86.2] CYNTHIA (obstructive sleep apnea) [G47.33] Mixed hyperlipidemia [E78.2] Essential hypertension [I10] Stage 2 chronic kidney disease [N18.2] History of skin cancer [Z85.828] Abnormal colonoscopy [R93.3] 05/13/2020 Essential tremor [G25.0] 05/13/2020 Vitamin D deficiency [E55.9] 05/13/2020 Gastroesophageal reflux disease [K21.9] 05/13/2020 Encounter Status:Closed by ASHLIE Catrachita REBECA on 11/20/24 [address] [facility] CT HEAD OR BRAIN W/O CONTRAS Ton 11-20-2024 CT HEAD OR BRAIN W/O CONTRAST ORIGINAL EXAMINATION: CT OF THE HEAD WITHOUT CONTRAST 11/20/2024 6:01 pm TECHNIQUE: CT of the head was performed without the administration of intravenous contrast. Automated exposure control, iterative reconstruction, and/or weight based adjustment of the mA/kV was utilized to reduce the radiation dose to as low as reasonably achievable. COMPARISON: None. HISTORY: ORDERING SYSTEM PROVIDED HISTORY: Reason for Exam: fall, hit head FINDINGS: BRAIN/VENTRICLES: There is no acute intracranial hemorrhage, mass effect or midline shift. No abnormal extra-axial fluid collection. The mccarty-white differentiation is maintained without evidence of an acute infarct. There are nonspecific hypoattenuating foci in the subcortical and periventricular white matter that most likely represent chronic microangiopathic ischemic changes in a patient of this age. Mild generalized volume loss is appreciated with associated prominence of the sulci and ventricles. There is no evidence of hydrocephalus. ORBITS: The visualized portion of the orbits demonstrate no acute abnormality. SINUSES: The visualized paranasal sinuses and mastoid air cells demonstrate no acute abnormality. SOFT TISSUES/SKULL: No acute abnormality of the visualized skull or soft tissues. IMPRESSION: No acute intracranial abnormality. Interpreted by: Norma Stevens Preliminary Report By: Norma Stevens Electronically signed By Norma Stevens Dictated Date: 11/20/2024 6:11:30 PM Prelim Date: 11/20/2024 6:16:19 PM Sign Date: 11/20/2024 6:16:19 PM Ordering Provider: YANNICK KAUR [facility] CT SPINE CERVICAL W/O ARIES Cornejo 11-20-2024 CT SPINE CERVICAL W/O CONTRAST ORIGINAL EXAMINATION: CT OF THE CERVICAL SPINE WITHOUT CONTRAST 11/20/2024 6:02 pm TECHNIQUE: CT of the cervical spine was performed without the administration of intravenous contrast. Multiplanar reformatted images are provided for review. Automated exposure control, iterative reconstruction, and/or weight based adjustment of the mA/kV was utilized to reduce the radiation dose to as low as reasonably achievable. COMPARISON: None. HISTORY: ORDERING SYSTEM PROVIDED HISTORY: Reason for Exam: fall, hit head FINDINGS: BONES/ALIGNMENT: There is no acute fracture or traumatic malalignment. DEGENERATIVE CHANGES: Multilevel degenerative changes are appreciated with intervertebral disc space loss, endplate sclerosis, and osteophytosis noted. These changes appear most severe at C5-6 with a slightly asymmetric left posterior disc osteophyte complex resulting in moderate narrowing of the spinal canal. Facet and uncovertebral arthropathy are appreciated throughout with moderate neural foraminal stenoses at C4-5 on the right and C5-6 bilaterally. SOFT TISSUES: Prevertebral and paraspinal soft tissues are grossly unremarkable. No acute abnormality is noted within the included lung apices. IMPRESSION: 1. No acute fracture or traumatic listhesis. 2. Multilevel degenerative changes as above. Interpreted by: Norma Stevens Preliminary Report By: Norma Stevens Electronically signed By Norma Stevens Dictated Date: 11/20/2024 6:16:28 PM Prelim Date: 11/20/2024 6:23:33 PM Sign Date: 11/20/2024 6:23:33 PM Ordering Provider: YANNICK KAUR [facility] Office Visit Reporton 2024 Office Visit Report [facility] [address] [place] [id number] OFFICE VISIT Date of Service: 11/19/24 MR#: [id number] Acct: [id number] Patient: BITA THOMPSON Rep #: [id number] : 1945 Provider: Dr. Brandt blackman MD Age/Sex: 79/F Location: [facility]. Status: Signed Intake Vital Signs 10/09/24 12:57 10/18/24 11:26 11/19/24 11:47 Height 5 ft 6 in 5 ft 6 in Weight: 148 lb 4 oz 148 lb 144 lb BMI 23.9 23.8 BP 168/78 H 165/70 H 170/70 H Blood Pressure Location Lt brachial Lt brachial Lt brachial Position Sitting Sitting Sitting Respiration 15 16 17 Pulse 70 73 68 Pulse Source Monitor Monitor Monitor Temp 98.4 F 98.9 F 98.6 F Temp Source Temporal Temporal Temporal Pulse Oximetry (%) 96 97 95 Oxygen Delivery Method room air room air room air Intake Visit Reasons: B12 inject Chief Complaint: Allergies primidone Allergy (Severe, Verified 10/09/24 13:05) Anaphylaxis montelukast Allergy (Intermediate, Verified 10/09/24 13:05) Other alcohol (From Mastisol Adhesive) Allergy (Unknown, Verified 10/09/24 13:05) Rash beef derived (bovine) Allergy (Unknown, Verified 10/09/24 13:05) Unknown gum mastic (From Mastisol Adhesive) Allergy (Unknown, Verified 10/09/24 13:05) Rash methyl salicylate (From Mastisol Adhesive) Allergy (Unknown, Verified 10/09/24 13:05) Rash mold Allergy (Unknown, Verified 10/09/24 13:05) Difficulty Breathing/Wheezing penicillin V Allergy (Unknown, Verified 10/09/24 13:05) Rash storax (From Mastisol Adhesive) Allergy (Unknown, Verified 10/09/24 13:05) Rash Itbqwci-TFS-DeH Reductase Inhibitor Allergy (Verified 10/09/24 13:05) NEEDS FOLLOW-UP black pepper Adverse Reaction (Unknown, Verified 10/09/24 13:05) UNKNOWN Have you fallen in the past year?: No Office Meds cyanocobalamin (vitamin B-12) 1,000 mcg/mL injection solution Performing Provider: Brandt Dang MD Performing Location: [facility] Administered by: Estephania Ledesma on 11/19/24 11:49 Dose Route Admin Location Dispensed Lot Number Expiration Date Package NDC NDC Paving Rammer 1,500 mcg IM left deltoid 1.5 mL [id number] 06/27/26 33001-908-14 [id number] SUKHWINDER REES Comments: The patient presents for B12 injection for treatment of fatigue. She has fatigue. Her last B12 injection was of benefit for fatigue. The patient is awake and alert. B12 1500mcg IM was administered today. There were no complications. Assessment and Plan Assessment and Plan (1) Fatigue: Status: Chronic Qualifiers: Fatigue type: chronic, unspecified Qualified Code(s): R53.82 - Chronic fatigue, unspecified Orders: Orders Vitamin B12 Today R53.82 - Chronic fatigue, unspecified Medications: Discontinued propranolol ER Discontinued Reason: Discontinued by PCP/other physicians 60 mg PO QAM 90 caps 1RF Clinical Quality Measures Falls Risk Screening/Assistive Devices Have you fallen in the past year?: No 11/19/24 1755 Date [facility]: Date (if applicable) CC: Normal [facility] Office Visit Reporton 2024 Office Visit Report [facility] [address] [place] [address] OFFICE VISIT Date of Service: 10/18/24 MR#: [id number] Acct: [id number] Patient: BITA THOMPSON Rep #: [id number] : 1945 Provider: Dr. Brandt blackman MD Age/Sex: 79/F Location: [facility] Status: Signed Intake Vital Signs 05/14/24 10:23 10/09/24 12:57 10/18/24 11:26 Height 5 ft 6 in 5 ft 6 in 5 ft 6 in Weight: 148 lb 4 oz 148 lb BMI 23.9 23.8 BP 168/78 H 165/70 H Blood Pressure Location Lt brachial Lt brachial Position Sitting Sitting Respiration 15 16 Pulse 70 73 Pulse Source Monitor Monitor Temp 98.4 F 98.9 F Temp Source Temporal Temporal Pulse Oximetry (%) 96 97 Oxygen Delivery Method room air room air Intake Visit Reasons: B12 inject Allergies primidone Allergy (Severe, Verified 10/09/24 13:05) Anaphylaxis montelukast Allergy (Intermediate, Verified 10/09/24 13:05) Other alcohol (From Mastisol Adhesive) Allergy (Unknown, Verified 10/09/24 13:05) Rash beef derived (bovine) Allergy (Unknown, Verified 10/09/24 13:05) Unknown gum mastic (From Mastisol Adhesive) Allergy (Unknown, Verified 10/09/24 13:05) Rash methyl salicylate (From Mastisol Adhesive) Allergy (Unknown, Verified 10/09/24 13:05) Rash mold Allergy (Unknown, Verified 10/09/24 13:05) Difficulty Breathing/Wheezing penicillin V Allergy (Unknown, Verified 10/09/24 13:05) Rash storax (From Mastisol Adhesive) Allergy (Unknown, Verified 10/09/24 13:05) Rash Akjdrxl-JXN-ObN Reductase Inhibitor Allergy (Verified 10/09/24 13:05) NEEDS FOLLOW-UP black pepper Adverse Reaction (Unknown, Verified 10/09/24 13:05) UNKNOWN Have you fallen in the past year?: No Office Meds cyanocobalamin (vitamin B-12) 1,000 mcg/mL injection solution Performing Provider: Brandt Dang MD Performing Location: [facility] Administered by: Ragini Day on 10/18/24 11:31 Dose Route Admin Location Dispensed Lot Number Expiration Date NANCY Watkins ufacturer 1,500 mcg IM Right Deltoid 1.5 mL [id number] 06/27/26 67740-431-26 GEORGE RAPP Comments: The patient presents for vitamin B12 injection for treatment of fatigue. She has fatigue. Her last B12 injection was of benefit for fatigue. The patient is awake and alert. Vitamin B12 1,500 IM was administered today. There were no complications. Assessment and Plan Assessment and Plan (1) Fatigue: Status: Chronic Qualifiers: Fatigue type: chronic, unspecified Qualified Code(s): R53.82 - Chronic fatigue, unspecified Orders: Orders Vitamin B12 Today R53.82 - Chronic fatigue, unspecified Clinical Quality Measures Falls Risk Screening/Assistive Devices Have you fallen in the past year?: No 10/18/24 1759 Date Brandt Dang MD Cosigner Signature: Date (if applicable) CC: Normal [facility] Neurology Visit Reporton Neurology Visit Report [facility] [address] [place] [address], [address] [place] [address] OFFICE VISIT Date of Service: 10/09/24 MR#: [id number] Acct: [id number] Name: BITA THOMPSON Rep #: [id number] : 1945 Provider: Dr. Brandt blackman MD Age/Sex: 79/F Location: [facility]. Status: Signed with Addenda ADDENDUM by CLAYTON Beard on 12/11/24 at 1642 Addendum Patient contacted our office regarding symptoms of fatigue and GI upset beginning a few days ago. She states that she was prescribed amlodipine on 12/07/2024 by primary care for hypertension. She was instructed to contact the prescribing physician for further management. 12/11/24 1642 Date Victoria Beard cc: * Signed ADDENDUM by Dr. Brandt Dang MD on 11/19/24 at 1617 Addendum Addendum (11/19/2024): The patient reports having various gastrointestinal side effects including nausea, constipation, and diarrhea that she attributes to propranolol ER. Propranolol ER will be discontinued. I will have her begin metoprolol 25 mg every morning. 11/19/24 1617 Date Brandt Dang MD cc: * Signed HPI [facility] Chief Complaint: follow up Details: Interim History: Bita returns for follow-up visit. She has a history of hyperlipidemia, obstructive sleep apnea on CPAP, COPD, basal cell skin cancer status post excision, stage III renal insufficiency, prior history of idiopathic thrombocytopenic purpura (status post splenectomy in 1969), and essential tremor. She has had a tremor since she was a teenager and this worsened during adulthood. Her tremor has interfered with activities including handwriting and using cooking utensils. The tremor affects both hands and is increased with action and when she is tired or anxious. She also has a head tremor. Increasing her dose of propranolol to 20 mg twice daily has been of benefit for her tremor and has been well-tolerated. Primidone 50 mg daily, tried in years past, was not of benefit and caused sedation. Buspirone, initiated in 2022, has been of benefit for her anxiety; buspirone 10 mg twice daily caused a dry mouth and she reduced her dose of buspirone 5 mg twice daily and is tolerating this well. Her tremor slightly decreased following initiation of buspirone, however her tremor continues to cause functional impairment. Her anxiety, at times, remains prominent. She has had nystagmus noted on examination since childhood. She reported that the cause of her nystagmus is unknown. Since around 2006, she has had gait imbalance. She has had physical therapy multiple times in the past. She has had low back pain and has bilateral hip pain and a feeling of stiffness in the hips. She had a fall in 2015 and sustained lumbar compression fracture(s) and underwent lumbar surgery at the L3-4-5 levels in 2015. This was of benefit and her low back pain subsided. She denied having any radicular pain in the lower extremities. She had a fall in 2020 and sustained a left hip fracture for which she underwent a partial hip replacement. She has had neck pain that radiates to the left shoulder since her fall in 2020. Cervical paraspinal/upper trapezius muscle trigger point injections have been of benefit for her musculoskeletal pain, though her last injection was less effective than prior injections. Acetaminophen has been of benefit for her musculoskeletal pain. She denied having weakness. She has chronic anxiety. She was hospitalized in August 2021 for urinary tract infection with acute renal insufficiency superimposed on chronic renal insufficiency. B12 1500 mcg IM injections have been of benefit for her fatigue. 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 She is being seen at the [facility] for her right knee and right hip arthritic pain. She sees an orthopedic surgeon and has received right knee and right hip corticosteroid injections and these have been of benefit. She uses a rollator or a cane. Physical Exam: Neuro: The patient is awake and alert and responds appropriately; speech is fluent but tremulous; a mild fine bilateral hand tremor is noted when arms are extended; a head tremor is noted; no rigidity is noted in the wrists Neck: No bruits Heart: regular rate and rhythm Supplemental Info CBC, CMP (03/18/2021): BUN 38, creatinine 1.37, EGFR 40, glucose 125. TSH, creatinine (04/09/21): creatinine 1.61, eGFR 33 Head MRI (04/23/21): FINDINGS: BRAIN AND EXTRA-AXIAL SPACES: T2 FLAIR hyperintensity foci in the white matter of both cerebral hemispheres are nonenhancing and have no mass effects. These are chronic white matter ischemic changes. No enhancing lesions intraaxially and extra-axially. No remote cortical based ischemic infarcts. No midline shift and no mass effects. N (more content not included)... Normal [facility] Office Visit Reporton 2024 Office Visit Report [facility] [address] [place] [address] OFFICE VISIT Date of Service: 09/17/24 MR#: [id number] Acct: [id number] Patient: BITA THOMPSON Rep #: [id number] : 1945 Provider: Dr. Brandt blackman MD Age/Sex: 78/F Location: [facility]. Status: Signed Intake Vital Signs 05/14/24 10:23 09/17/24 11:23 Height 5 ft 6 in Weight: 148 lb BP 154/80 H Blood Pressure Location Lt brachial Position Sitting Respiration 17 Pulse 67 Pulse Source Monitor Temp 98.6 F Temp Source Temporal Pulse Oximetry (%) 97 Oxygen Delivery Method room air Intake Visit Reasons: B12 Chief Complaint: Allergies primidone Allergy (Severe, Verified 02/13/24 13:18) Anaphylaxis montelukast Allergy (Intermediate, Verified 02/13/24 13:18) Other alcohol (From Mastisol Adhesive) Allergy (Unknown, Verified 02/13/24 13:18) Rash beef derived (bovine) Allergy (Unknown, Verified 02/13/24 13:18) Unknown gum mastic (From Mastisol Adhesive) Allergy (Unknown, Verified 02/13/24 13:18) Rash methyl salicylate (From Mastisol Adhesive) Allergy (Unknown, Verified 02/13/24 13:18) Rash mold Allergy (Unknown, Verified 02/13/24 13:18) Difficulty Breathing/Wheezing penicillin V Allergy (Unknown, Verified 02/13/24 13:18) Rash storax (From Mastisol Adhesive) Allergy (Unknown, Verified 02/13/24 13:18) Rash Husipuc-BUD-VyZ Reductase Inhibitor Allergy (Verified 02/13/24 13:18) NEEDS FOLLOW-UP black pepper Adverse Reaction (Unknown, Verified 02/13/24 13:18) UNKNOWN Have you fallen in the past year?: No Office Meds cyanocobalamin (vitamin B-12) 1,000 mcg/mL injection solution Performing Provider: Brandt Dang MD Performing Location: [facility] Administered by: Estephania Ledesma on 09/17/24 11:25 Dose Route Admin Location Dispensed Lot Number Expiration Date [facility] Man ufacturer 1,500 mcg IM left deltoid 1.5 mL [id number] 08/27/25 6741-5208-53 [facility] Comments: The patient presents for B12 injection for treatment of fatigue. She has fatigue. Her last B12 injection was of benefit for fatigue. The patient is awake and alert. B12 1500mcg IM was administered today. There were no complications. Assessment and Plan Assessment and Plan (1) Fatigue: Status: Chronic Qualifiers: Fatigue type: chronic, unspecified Qualified Code(s): R53.82 - Chronic fatigue, unspecified Orders: Orders Vitamin B12 09/17/24 R53.82 - Chronic fatigue, unspecified Clinical Quality Measures Falls Risk Screening/Assistive Devices Have you fallen in the past year?: No 09/18/24 0811 Date Brandt Dang MD Cosign Signature: Date (if applicable) CC: Normal [facility] CNOVon 08-22-2024 CNOV Office Visit (GENSWS ) ----- BITA THOMPSON ([id number]) 1945 F Date Time Provider Department 08/22/24 11:00 AM NELSON TORREZ During your visit today, we recorded the following information about you: Temperature Pulse Respiration Blood pressure 97.5 degrees 78/minute 14/minute 148/70 Weight Height 67.1 kg 1.651 m Nelson Torrez MD 08/23/2024 6:11 AM Signed FOLLOW UP VISIT NAME: Bita [facility] NO.: [id number] DATE OF SERVICE: 04/11/2024 : 1945 REFERRING PHYSICIAN: Seferino Bita is a patient I am following for a lipoma versus sebaceous cyst in the right axillary region and a skin lesion on her left forearm. I performed excision of her right axillary site and then excision of the left forearm lesion on February 15, 2024. Pathology returned as: FINAL DIAGNOSIS A. Skin, left arm, excision: - Basal cell carcinoma, superficial and nodular types, see comment. B. Skin, right axillary, excision: - Epidermal inclusion cyst, ruptured. Diagnosis Comment A. The basal cell carcinoma is present at one peripheral margin of the excision specimen. Clinical correlation is recommended. The patient notes all sites are healing well with no complaints. She initially wondered if she had a recurrence in the area where the area seems slightly raised. She presented to the office in early July but due to being behind schedule she had to go home to take care of her who has Alzheimer's dementia. She returns now for evaluation but notices that the area that seemed slightly raised is now flat and does not concern her. She knows she is allergic to cats and wondered if it became raised when she was around a cat just before she noted the area was swollen. VITALS: Blood pressure 148/70, pulse 78, temperature 36.4 ?C (97.5 ?F), temperature source Temporal, resp. rate 14, height 165.1 cm (5' 5), weight 67.1 kg (148 lb), SpO2 95%. On examination, the right axillary site and the left forearm site are healing with no signs of residual concerns. There does not appear to be a true recurrence A photograph of the site was taken and scanned into imaging. Assessment IMPRESSION: Ruptured sebaceous cyst right axilla and left forearm basal cell carcinoma extending to 1 peripheral margin PLAN: If the patient notes any problems or signs of recurrence at the left forearm site, the patient should contact me immediately. We discussed the signs of a raised site or nodularity as a suspicious finding. We discussed the option of reexcision even though I felt clinically I excised the site completel She wishes to follow the site and not have it reexcised currently. Diagnoses: (C44.619) Basal cell carcinoma (BCC) of left upper arm (primary encounter diagnosis) (L98.9) Skin lesion of left arm Return to Clinic: The patient is instructed to follow-up with me for wound check in 6 months. __ Nelson Torrez MD Allergies As of Date: 08/22/2024 Noted Allergy Reaction ADHESIVE TAPE-SILICONES 02/15/2024 16 - Unknown BEEF CONTAINING PRODUCTS 05/13/2020 14 - Other: See Comments BETA-BLOCKERS (BETA-ADRENERGIC BL*12/05/2020 5 - Intolerance BLACK PEPPER 05/13/2020 16 - Unknown CAT DANDER 05/13/2020 14 - Other: See Comments HORSE DANDER 05/13/2020 14 - Other: See Comments MUSHROOM 05/13/2020 2 - Rash PENICILLINS 12/05/2020 4 - Hives SEASONAL ALLERGIES 05/13/2020 16 - Unknown [id number] REDUCTASE INHIBIT*12/05/2020 8 - GI Upset Date Reviewed: 08/22/2024 Reviewed by: Guicho Riley LPN - Fully Assessed Reason for Visit: Follow Up [171] Primary Visit Diagnosis:Basal cell carcinoma (BCC) of left upper arm [C44.619] Other Visit Diagnosis:Skin lesion of left arm [L98.9] Prescriptions as of 08/23/2024 - lisinopril (ZESTRIL) 20 mg tablet Take 1 tablet by mouth two times a day. - famotidine (PEPCID) 20 mg tablet Take 1 tablet by mouth once daily. - busPIRone (BUSPAR) 5 mg tablet Take 1 tablet by mouth two times a day. - fenofibrate nanocrystallized (TRICOR) 145 mg tablet Take 1 tablet by mouth once daily. - albuterol HFA 90 mcg/actuation HFA Inhale as instructed. - cholecalciferol, vitamin D3, (VITAMIN D3 ORAL) Take 400 mg by mouth. Unknown frequency Problem List As Of Date 08/22/2024 Noted Resolved History of ITP [Z86.2] CYNTHIA (obstructive sleep apnea) [G47.33] Mixed hyperlipidemia [E78.2] Essential hypertension [I10] Stage 2 chronic kidney disease [N18.2] History of skin cancer [Z85.828] Abnormal colonoscopy [R93.3] 05/13/2020 Essential tremor [G25.0] 05/13/2020 Vitamin D deficiency [E55.9] 05/13/2020 Gastroesophageal reflux disease [K21.9] 05/13/2020 Encounter Status:Closed by NELSON TORREZ on 08/23/24 Normal [facility] Office Visit Reporton 2024 Office Visit Report [facility] [address] [place] [address] OFFICE VISIT Date of Service: 08/16/24 MR#: [id number] Acct: [id number] Patient: BITA THOMPSON Rep #: [id number] : 1945 Provider: Dr. Brandt blackman MD Age/Sex: 78/F Location: [facility] Status: Signed Intake Vital Signs 05/14/24 10:23 08/16/24 14:59 Height 5 ft 6 in Weight: 150 lb 6 oz 148 lb 6 oz BMI 24.3 BP 150/80 H 158/70 H Blood Pressure Location Lt brachial Lt brachial Position Sitting Sitting Respiration 17 17 Pulse 76 71 Pulse Source Monitor Monitor Temp 98.2 F 98.4 F Temp Source Temporal Temporal Pulse Oximetry (%) 94 96 Oxygen Delivery Method room air room air Intake Visit Reasons: B12 inject Chief Complaint: Allergies primidone Allergy (Severe, Verified 02/13/24 13:18) Anaphylaxis montelukast Allergy (Intermediate, Verified 02/13/24 13:18) Other alcohol (From Mastisol Adhesive) Allergy (Unknown, Verified 02/13/24 13:18) Rash beef derived (bovine) Allergy (Unknown, Verified 02/13/24 13:18) Unknown gum mastic (From Mastisol Adhesive) Allergy (Unknown, Verified 02/13/24 13:18) Rash methyl salicylate (From Mastisol Adhesive) Allergy (Unknown, Verified 02/13/24 13:18) Rash mold Allergy (Unknown, Verified 02/13/24 13:18) Difficulty Breathing/Wheezing penicillin V Allergy (Unknown, Verified 02/13/24 13:18) Rash storax (From Mastisol Adhesive) Allergy (Unknown, Verified 02/13/24 13:18) Rash Klsicbh-OZY-PtG Reductase Inhibitor Allergy (Verified 02/13/24 13:18) NEEDS FOLLOW-UP black pepper Adverse Reaction (Unknown, Verified 02/13/24 13:18) UNKNOWN Have you fallen in the past year?: Yes Office Meds cyanocobalamin (vitamin B-12) 1,000 mcg/mL injection solution Performing Provider: Brandt Dang MD Performing Location: [facility] Administered by: Estephania Ledesma on 08/16/24 14:01 Dose Route Admin Location Dispensed Lot Number Expiration Date NDC Man ufacturer 1,500 mcg IM left deltoid 1.5 mL [id number] 07/28/26 70354-676-59 DAVE REES Comments: The patient presents for B12 injection for treatment of fatigue. She has fatigue. Her last B12 injection was of benefit for fatigue. The patient is awake and alert. B12 1500mcg IM was administered today. There were no complications. Assessment and Plan Assessment and Plan (1) Fatigue: Status: Chronic Qualifiers: Fatigue type: chronic, unspecified Qualified Code(s): R53.82 - Chronic fatigue, unspecified Orders: Orders Vitamin B12 Today R53.82 - Chronic fatigue, unspecified Clinical Quality Measures Falls Risk Screening/Assistive Devices Have you fallen in the past year?: Yes 08/16/24 1537 Date [facility]: Date (if applicable) [facility]: [facility] 08-02-[facility] CNOV Office Visit (GENSWS ) ----- BITA THOMPSON ([id number]) 1945 F Date Time Provider Department 08/02/24 12:15 PM NELSON TORREZ During your visit today, we recorded the following information about you: Temperature Pulse Respiration Blood pressure 98.5 degrees 68/minute 17/minute 138/76 Weight 67.6 kg Nelson Torrez MD 08/04/2024 6:32 PM Signed Patient left without being seen Allergies As of Date: 08/02/2024 Noted Allergy Reaction ADHESIVE TAPE-SILICONES 02/15/2024 16 - Unknown BEEF CONTAINING PRODUCTS 05/13/2020 14 - Other: See Comments BETA-BLOCKERS (BETA-ADRENERGIC BL*12/05/2020 5 - Intolerance BLACK PEPPER 05/13/2020 16 - Unknown CAT DANDER 05/13/2020 14 - Other: See Comments HORSE DANDER 05/13/2020 14 - Other: See Comments MUSHROOM 05/13/2020 2 - Rash PENICILLINS 12/05/2020 4 - Hives SEASONAL ALLERGIES 05/13/2020 16 - Unknown [id number] REDUCTASE INHIBIT*12/05/2020 8 - GI Upset Date Reviewed: 08/02/2024 Reviewed by: Zoya Jacome, RN - Fully Assessed Reason for Visit: LESION, SKIN [936] Primary Visit Diagnosis:Basal cell carcinoma (BCC) of left upper arm [C44.619] Prescriptions as of 08/04/2024 - lisinopril (ZESTRIL) 20 mg tablet Take 1 tablet by mouth two times a day. - famotidine (PEPCID) 20 mg tablet Take 1 tablet by mouth once daily. - busPIRone (BUSPAR) 5 mg tablet Take 1 tablet by mouth two times a day. - fenofibrate nanocrystallized (TRICOR) 145 mg tablet Take 1 tablet by mouth once daily. - albuterol HFA 90 mcg/actuation HFA Inhale as instructed. - cholecalciferol, vitamin D3, (VITAMIN D3 ORAL) Take 400 mg by mouth. Problem List As Of Date 08/02/2024 Noted Resolved History of ITP [Z86.2] CYNTHIA (obstructive sleep apnea) [G47.33] Mixed hyperlipidemia [E78.2] Essential hypertension [I10] Stage 2 chronic kidney disease [N18.2] History of skin cancer [Z85.828] Abnormal colonoscopy [R93.3] 05/13/2020 Essential tremor [G25.0] 05/13/2020 Vitamin D deficiency [E55.9] 05/13/2020 Gastroesophageal reflux disease [K21.9] 05/13/2020 Encounter Status:Closed by NELSON TORREZ on 08/04/24 [facility] 08-02-2024 CNPN Telephone (netZentryS) ----- BITA THOMPSON ([id number]) 1945 F Date Time Provider Department 08/02/24 NELSON TORREZ netZentryS During your visit today, we recorded the following information about you: Guicho Riley LPN 08/02/2024 1:25 PM Signed Called patient. No answer- left message. Patient had appointment but did leave prior to being seen due to spouse having cognitive concerns and had not eaten lunch yet. Dr. Torrez can see after lunch if she is able to return to clinic. DON Rodriguez Kimberly, LPN 08/02/2024 4:53 PM Signed Patient scheduled for 08/22/2024. Guicho Riley LPN Allergies As of Date: 08/02/2024 Noted Allergy Reaction ADHESIVE TAPE-SILICONES 02/15/2024 16 - Unknown BEEF CONTAINING PRODUCTS 05/13/2020 14 - Other: See Comments BETA-BLOCKERS (BETA-ADRENERGIC BL*12/05/2020 5 - Intolerance BLACK PEPPER 05/13/2020 16 - Unknown CAT DANDER 05/13/2020 14 - Other: See Comments HORSE DANDER 05/13/2020 14 - Other: See Comments MUSHROOM 05/13/2020 2 - Rash PENICILLINS 12/05/2020 4 - Hives SEASONAL ALLERGIES 05/13/2020 16 - Unknown GCOBGPE-OTP-QHC REDUCTASE INHIBIT*12/05/2020 8 - GI Upset Date Reviewed: 08/02/2024 Reviewed by: Zoya Jacome RN - Fully Assessed Reason for Visit: Appointment [186] Prescriptions as of 08/02/2024 - lisinopril (ZESTRIL) 20 mg tablet Take 1 tablet by mouth two times a day. - famotidine (PEPCID) 20 mg tablet Take 1 tablet by mouth once daily. - busPIRone (BUSPAR) 5 mg tablet Take 1 tablet by mouth two times a day. - fenofibrate nanocrystallized (TRICOR) 145 mg tablet Take 1 tablet by mouth once daily. - albuterol HFA 90 mcg/actuation HFA Inhale as instructed. - cholecalciferol, vitamin D3, (VITAMIN D3 ORAL) Take 400 mg by mouth. Problem List As Of Date 08/02/2024 Noted Resolved History of ITP [Z86.2] CYNTHIA (obstructive sleep apnea) [G47.33] Mixed hyperlipidemia [E78.2] Essential hypertension [I10] Stage 2 chronic kidney disease [N18.2] History of skin cancer [Z85.828] Abnormal colonoscopy [R93.3] 05/13/2020 Essential tremor [G25.0] 05/13/2020 Vitamin D deficiency [E55.9] 05/13/2020 Gastroesophageal reflux disease [K21.9] 05/13/2020 Encounter Status:Closed by GUICHO RILEY on 08/02/24 Normal [facility] Office Visit Reporton 2024 Office Visit Report [facility] [address] [place] [address] OFFICE VISIT Date of Service: 07/16/24 MR#: [id number] Acct: [id number] Patient: BITA THOMPSON Rep #: [id number] : 1945 Provider: Dr. Brandt blackman MD Age/Sex: 78/F Location: [facility]. Status: Signed Intake Vital Signs 05/14/24 10:23 07/16/24 10:38 Height 5 ft 6 in Weight: 150 lb 6 oz 148 lb 3 oz BMI 24.3 BP 150/80 H 120/72 Blood Pressure Location Lt brachial Lt brachial Position Sitting Sitting Respiration 17 17 Pulse 76 68 Pulse Source Monitor Monitor Temp 98.2 F 98.0 F Temp Source Temporal Temporal Pulse Oximetry (%) 94 98 Oxygen Delivery Method room air room air Intake Visit Reasons: B12 inject Chief Complaint: Allergies primidone Allergy (Severe, Verified 02/13/24 13:18) Anaphylaxis montelukast Allergy (Intermediate, Verified 02/13/24 13:18) Other alcohol (From Mastisol Adhesive) Allergy (Unknown, Verified 02/13/24 13:18) Rash beef derived (bovine) Allergy (Unknown, Verified 02/13/24 13:18) Unknown gum mastic (From Mastisol Adhesive) Allergy (Unknown, Verified 02/13/24 13:18) Rash methyl salicylate (From Mastisol Adhesive) Allergy (Unknown, Verified 02/13/24 13:18) Rash mold Allergy (Unknown, Verified 02/13/24 13:18) Difficulty Breathing/Wheezing penicillin V Allergy (Unknown, Verified 02/13/24 13:18) Rash storax (From Mastisol Adhesive) Allergy (Unknown, Verified 02/13/24 13:18) Rash Neaxtda-AVP-RwY Reductase Inhibitor Allergy (Verified 02/13/24 13:18) NEEDS FOLLOW-UP black pepper Adverse Reaction (Unknown, Verified 02/13/24 13:18) UNKNOWN Have you fallen in the past year?: Yes Office Meds cyanocobalamin (vitamin B-12) 1,000 mcg/mL injection solution Performing Provider: Brandt Dang MD Performing Location: [facility] Administered by: Estephania Ledesma on 07/16/24 10:05 Dose Route Admin Location Dispensed Lot Number Expiration Date NDC Man ufacturer 1,500 mcg IM left deltoid 1.5 mL [id number] 07/28/26 09985-651-49 DAVE REES Comments: The patient presents for B12 injection for treatment of fatigue. She has fatigue. Her last B12 injection was of benefit for fatigue. The patient is awake and alert. B12 1500mcg IM was administered today. There were no complications Assessment and Plan Assessment and Plan (1) Fatigue: Status: Chronic Qualifiers: Fatigue type: chronic, unspecified Qualified Code(s): R53.82 - Chronic fatigue, unspecified Orders: Orders Vitamin B12 Today R53.82 - Chronic fatigue, unspecified Clinical Quality Measures Falls Risk Screening/Assistive Devices Have you fallen in the past year?: Yes 07/16/24 1743 Date Brandt Garcia Signature: Date (if applicable) CC: Normal [facility] Comprehensive metabolic 2000 panelon 06-13-2024 Albumin [Mass/Vol] 4.2 g/dL Normal 3.9-4.9 [facility] Comment on above: Order Comment: Speci men Type: BLOOD SPECIMENOrdering Facility: [facility] Address: [address] [place] [address] Performed By: #### 2 4323-8, 75498-1 ####[facility] [id number] [place] [address] [place] ALP [Catalytic activity/Vol] 46 U/L Normal 34-123 [facility] Comment on above: Order Comment: Speci men Type: BLOOD SPECIMENOrdering Facility: [facility] Address: [address] [place] [address] Performed By: #### 2 4323-8, 96403-1 ####[facility] LABIA [id number] [place] [id number] [place] ALT [Catalytic activity/Vol] 15 U/L Normal 7-38 [facility] Comment on above: Order Comment: Speci men Type: BLOOD SPECIMENOrdering Facility: [facility] Address: [address] [place], [place] [address] Performed By: #### 2 4323-8, 16110-6 ####[facility] LABCLIA [id number] [place] [id number] [place] Anion gap [Moles/Vol] 13 mmol/L Normal 8-15 [facility] Comment on above: Order Comment: Speci men Type: BLOOD SPECIMENOrdering Facility: [facility] Address: [address] [place] [address] Performed By: #### 2 4323-8, 69523-1 ####[facility] LABCLIA [id number] [place] [address] [place] AST [Catalytic activity/Vol] 19 U/L Normal 13-35 [facility] Comment on above: Order Comment: Speci men Type: BLOOD SPECIMENOrdering Facility: [facility] Address: [address] [place] [address] Performed By: #### 2 4323-8, 18914-9 ####[facility] LABCLIA [id number] [place] [address] [place] Bilirubin [Mass/Vol] 0.4 mg/dL Normal 0.2-1.3 [facility] Comment on above: Order Comment: Speci men Type: BLOOD SPECIMENOrdering Facility: [facility] Address: [address] [place], [place] [address] Performed By: #### 2 4323-8, 11936-3 ####[facility] LABCLIA [id number] [place] [id number] [place] Calcium [Mass/Vol] 10.0 mg/dL Normal 8.5-10.2 [facility] Comment on above: Order Comment: Speci men Type: BLOOD SPECIMENOrdering Facility: [facility] Address: [address] [place], [place] [address] Performed By: #### 2 4323-8, 28164-3 ####[facility] LABCLIA [id number] [address] [address] [place] Chloride [Moles/Vol] 103 mmol/L Normal 98-107 [facility] Comment on above: Order Comment: Speci men Type: BLOOD SPECIMENOrdering Facility: [facility] Address: [address] [place] [address] Performed By: #### 2 4323-8, 45153-5 ####[facility] LABCLIA [id number] [place] [id number] [place] CO2 [Moles/Vol] 23 mmol/L Normal 22-30 [facility] Comment on above: Order Comment: Speci men Type: BLOOD SPECIMENOrdering Facility: [facility] Address: [address] [place] [address] Performed By: #### 2 4323-8, 83052-9 ####[facility] LABCLIA [id number] [place] [address] [place] Creatinine [Mass/Vol] 1.34 mg/dL High 0.58-0.96 [facility] Comment on above: Order Comment: Speci men Type: BLOOD SPECIMENOrdering Facility: [facility] Address: [address] [place] [address] Performed By: #### 2 4323-8, 95725-2 ####[facility] LABIA [id number] [place] [address] [place] Creatinine and Glomerular filtration rate.predicted panel (S/P/Bld) 41 mL/min/1.73m??? Low >=60 [facility] Comment on above: Order Comment: Speci men Type: BLOOD SPECIMENOrdering Facility: [facility] Address: [address] [place] [address] Result Comment: Luiza mated Glomerular Filtration Rate (eGFR) is calculated using the 2020 CKD-EPI creatinine equation. This equation utilizes serum creatinine, sex, and age as parameters. The creatinine assay has traceable calibration to isotope dilution-mass spectrometry. Refer to KDIGO guidelines for clinical interpretation. In patients with unstable renal function, e.g. those with acute kidney injury, the eGFR may not accurately reflect actual GFR. Performed By: #### 2 4323-8, 33074-8 ####[facility] LABCLIA [id number] [address] [address] [place] Glucose [Mass/Vol] 93 mg/dL Normal 74-99 [facility] Comment on above: Order Comment: Sis barber Type: BLOOD SPECIMENOrdering Facility: [facility] Address: [address] [place] [id number] Result Comment: The [place] Diabetes Association (ADA) provides guidance for cutoff values for fasting glucose and random glucose. The ADA defines fasting as no caloric intake for at least 8 hours. Fasting plasma glucose results between 100 to 125 mg/dL indicate increased risk for diabetes (prediabetes). Fasting plasma glucose results greater than or equal to 126 mg/dL meet the criteria for diagnosis of diabetes. In the absence of unequivocal hyperglycemia, results should be confirmed by repeat testing. In a patient with classic symptoms of hyperglycemia or hyperglycemic crisis, random plasma glucose results greater than or equal to 200 mg/dL meet the criteria for diagnosis of diabetes. Reference: Standards of Medical Care in Diabetes 2016, [place] Diabetes Association. Diabetes Care. 2016.39(Suppl 1). Performed By: #### 2 4323-8, ####[facility] LABCLIA [id number] [address] [address] [place] Potassium [Moles/Vol] 4.8 mmol/L Normal 3.7-5.1 [facility] Comment on above: Order Comment: Sis barber Type: BLOOD SPECIMENOrdering Facility: [facility] Address: [address] [place] [address] Performed By: #### 2 4323-8, ####[facility] LABCLIA [id number] [address] [address] [place] Protein [Mass/Vol] 7.5 g/dL Normal 6.3-8.0 [facility] Comment on above: Order Comment: Speci men Type: BLOOD SPECIMENOrdering Facility: [facility] Address: [address] [place], [place] [address] Performed By: #### 2 4323-8, 59102-4 ####[facility] LABCLIA [id number] [facility] [id number] [address] [place] Sodium [Moles/Vol] 139 mmol/L Normal 136-144 [facility] Comment on above: Order Comment: Speci men Type: BLOOD SPECIMENOrdering Facility: [facility] Address: [address] [place], [place] [address] Performed By: #### 2 4323-8, 38335-1 ####[facility] LABCLIA [id number] [facility] [address] [place] [address] [place] Urea nitrogen [Mass/Vol] 40 mg/dL High 7-21 [facility] Comment on above: Order Comment: Speci men Type: BLOOD SPECIMENOrdering Facility: [facility] Address: [address] [place] [address] Performed By: #### 2 4323-8, 54063-9 ####[facility] LABCLIA [id number] [address] [place] [address] [place] Lipid 1996 panelon 5 Cholesterol [Mass/Vol] 166 mg/dL Normal <200 [facility] Comment on above: Order Comment: Speci men Type: BLOOD SPECIMENOrdering Facility: [facility] Address: [address] [place] [address] Result Comment: <200 mg/dL, Desirable 200-239 mg/dL, Borderline high >239 mg/dL, High Performed By: #### 2 4323-8, 61530-3 ####[facility] LABCLIA [id number] [facility] [id number] [address] [place] Cholesterol in HDL [Mass/Vol] 38 mg/dL Low >39 [facility] Comment on above: Order Comment: Speci men Type: BLOOD SPECIMENOrdering Facility: [facility] Address: [address] [place] [address] Result Comment: 40-5 9 mg/dL, Acceptable >59 mg/dL, High: Negative risk factor for coronary heart disease <40 mg/dL, Low: Positive risk factor for coronary heart disease Performed By: #### 2 4323-8, 10607-6 ####[facility] LABCLIA [id number] [place] [id number] [place] Cholesterol in LDL [Mass/Vol] 112 mg/dL High <100 [facility] Comment on above: Order Comment: Speci men Type: BLOOD SPECIMENOrdering Facility: [facility] Address: [address] [place] [address] Result Comment: <100 mg/dL, Optimal 100-129 mg/dL, Near optimal/above optimal 130-159 mg/dL, Borderline high 160-189 mg/dL, High >189 mg/dL, Very high Secondary prevention optimal LDL Cholesterol levels are recommended to be < 70 mg/dL Performed By: #### 2 4323-8, 78001-8 ####[facility] LABCLIA [id number] [address] [place] Cholesterol in LDL/Cholesterol in HDL [Mass ratio] 2.95 {ratio} High <2.54 [facility] Comment on above: Order Comment: Speci men Type: BLOOD SPECIMENOrdering Facility: [facility] Address: [address] [place] [address] Result Comment: Refkulwinder whitleyce: 1. National Cholesterol Education Program ATP III Guideline At-A-Glance Quick Desk Reference: National Heart, Lung, and Blood [place]. National Institutes of Health. 2001: NIH Publication No. 01-3305. 2. An International Atherosclerosis Society position paper: global recommendations for the management of dyslipidemia: executive summary, Atherosclerosis. 2014: 232(2):410-413. Performed By: #### 2 4323-8, 21275-3 ####[facility] LABCLIA [id number] [place] [id number] [place] Cholesterol in VLDL [Mass/Vol] 16 mg/dL Normal <30 [facility] Comment on above: Order Comment: Speci men Type: BLOOD SPECIMENOrdering Facility: [facility] Address: [address] [place] [address] Performed By: #### 2 4323-8, 50384-6 ####[facility] LABCLIA [id number] [facility] [place] [address] [place] Cholesterol non HDL [Mass/Vol] 128 mg/dL Normal <130 [facility] Comment on above: Order Comment: Speci men Type: BLOOD SPECIMENOrdering Facility: [facility] Address: [address] [place] [address] Result Comment: <130 mg/dL, Optimal 130-159 mg/dL, Near optimal/above optimal 160-189 mg/dL, Borderline high 190-219 mg/dL, High >219 mg/dL, Very high Secondary prevention optimal non HDL Cholesterol levels are recommended to be <100 mg/dL Performed By: #### 2 4323-8, ####[facility] LABCLIA [id number] [facility] [place] [address] [place] Cholesterol.total/Cho lesterol in HDL [Mass ratio] 4.37 {ratio} Normal <5.10 [facility] Comment on above: Order Comment: Speci men Type: BLOOD SPECIMENOrdering Facility: [facility] Address: [address] [place] [address] Performed By: #### 2 4323-8, ####[facility] LABCLIA [id number] [facility] [place] [id number] [place] FASTING TIME 12 hrs Normal [facility] Comment on above: Order Comment: Speci men Type: BLOOD SPECIMENOrdering Facility: [facility] Address: [address] [place] [address] Performed By: #### 2 4323-8, 15724-4 ####[facility] LABCLIA [id number] [address] [place] Triglyceride [Mass/Vol] 82 mg/dL Normal <150 [facility] Comment on above: Order Comment: Speci men Type: BLOOD SPECIMENOrdering Facility: [facility] Address: [address] [place] [address] Result Comment: <150 mg/dL, Normal 150-199 mg/dL, Borderline high 200-499 mg/dL, High >499 mg/dL, Very high Performed By: #### 2 4323-8, 60081-6 ####[facility] LABCLIA [id number] [place] [address] [place] Office Visit Reporton 2024 Office Visit Report [facility] [address] [place] [address] OFFICE VISIT Date of Service: 06/12/24 MR#: [id number] Acct: [id number] Patient: BITA THOMPSON Rep #: [id number] : 1945 Provider: Dr. Brandt blackman MD Age/Sex: 78/F Location: [facility] Status: Signed Intake Vital Signs 04/11/24 11:27 06/12/24 14:01 Height 5 ft 6 in Weight: 150 lb 150 lb 3 oz BMI 24.2 BP 134/70 H 150/78 H Blood Pressure Location Lt brachial Lt brachial Position Sitting Sitting Respiration 16 17 Pulse 71 69 Pulse Source Monitor Monitor Temp 98.6 F 98.0 F Temp Source Temporal Temporal Pulse Oximetry (%) 96 97 Oxygen Delivery Method room air room air Intake Visit Reasons: B12 inject Chief Complaint: Allergies primidone Allergy (Severe, Verified 02/13/24 13:18) Anaphylaxis montelukast Allergy (Intermediate, Verified 02/13/24 13:18) Other alcohol (From Mastisol Adhesive) Allergy (Unknown, Verified 02/13/24 13:18) Rash beef derived (bovine) Allergy (Unknown, Verified 02/13/24 13:18) Unknown gum mastic (From Mastisol Adhesive) Allergy (Unknown, Verified 02/13/24 13:18) Rash methyl salicylate (From Mastisol Adhesive) Allergy (Unknown, Verified 02/13/24 13:18) Rash mold Allergy (Unknown, Verified 02/13/24 13:18) Difficulty Breathing/Wheezing penicillin V Allergy (Unknown, Verified 02/13/24 13:18) Rash storax (From Mastisol Adhesive) Allergy (Unknown, Verified 02/13/24 13:18) Rash Xamfwsk-SGA-SvD Reductase Inhibitor Allergy (Verified 02/13/24 13:18) NEEDS FOLLOW-UP black pepper Adverse Reaction (Unknown, Verified 02/13/24 13:18) UNKNOWN Have you fallen in the past year?: Yes Office Meds cyanocobalamin (vitamin B-12) 1,000 mcg/mL injection solution Performing Provider: Brandt Dang MD Performing Location: [facility] Administered by: Estephania Ledesma on 06/12/24 13:47 Dose Route Admin Location Dispensed Lot Number Expiration Date [facility] Man ufacturer 1,500 mcg IM left deltoid 1.5 mL [id number] 05/28/26 75232-535-13 DAVE REES Comments: The patient presents for B12 injection for treatment of fatigue. She has fatigue. Her last B12 injection was of benefit for fatigue. The patient is awake and alert. B12 1500mcg IM was administered today. There were no complications. Assessment and Plan Assessment and Plan (1) Fatigue: Status: Chronic Qualifiers: Fatigue type: chronic, unspecified Qualified Code(s): R53.82 - Chronic fatigue, unspecified Orders: Orders Vitamin B12 Today R53.82 - Chronic fatigue, unspecified Clinical Quality Measures Falls Risk Screening/Assistive Devices Have you fallen in the past year?: Yes 06/12/24 1732 Date Brandt Dang MD Cosigner Signature: Date (if applicable) CC: [facility] CNOVon 06-06-2024 CNOV Office Visit (FAMPWS ) ----- BITA THOMPSON ([id number]) 1945 F Date Time Provider Department 06/06/24 2:40 PM ZARA GALLOWAY During your visit today, we recorded the following information about you: Pulse Respiration Blood pressure Weight 70/minute 18/minute 136/72 67 kg Height 1.65 m AmandalogZara bruce APRN.VP CLINICAL 06/06/2024 3:54 PM Signed 06/06/2024 Patient presents with: Establish Care SUBJECTIVE: This is a 78 year old that is here today for Above Complaints.. Will be getting colonoscopy on 07/20/2024. CYNTHIA: follows with Dr. Beckford. Uses CPAP nightly. Feels refreshed when she wakes up Follows with Dr. Dang for hx of essential tremors Follows with Dr. Nava for hx of CKD. Last office visit was on 04/05/2024. Patient reports recommended follow-up was in one year Goes to allergy clinic behind [facility] for allergy injections. Reports she uses an albuterol inhaler at times as well HTN: Patient is compliant with meds Yes Monitors bp at home: No. Denies side effects: Yes. Chest pain: No. Dyspnea: No. Edema: No. Palpitations: No. Syncope: No. Headache: No. Dizziness: No. HYPERLIPIDEMIA: Patient is taking medications: takes fenofibrate . Patient is watching diet: Yes. Patient denies myalgias: Yes. Patient denies gi upset: Yes Past medical, surgical, family, social hx, medications, allergies and health maintenance reviewed and updated PAST MEDICAL HISTORY Diagnosis Date Anal condyloma Essential hypertension History of ITP History of skin cancer Mixed hyperlipidemia CYNTHIA (obstructive sleep apnea) Stage 2 chronic kidney disease ALLERGIES Adhesive Tape-Silicones, Beef Containing Products, Beta-Blockers (Beta-Adrenergic Blocking Agts), Black Pepper, Cat Dander, Horse Dander, Mushroom, Penicillins, Seasonal Allergies, and Ujwrgcu-Wac-Qtm Reductase Inhibitors MEDICATIONS Current Outpatient Medications Medication Sig lisinopril (ZESTRIL) 20 mg tablet Take 1 tablet by mouth two times a day. fenofibrate nanocrystallized (TRICOR) 145 mg tablet Take 1 tablet by mouth once daily. propranolol (INDERAL) 10 mg tablet 2 tablets Orally twice a day busPIRone (BUSPAR) 5 mg tablet Take 1 tablet by mouth every 12 hours. folic acid 400 mcg tablet Folic Acid 400mg Active (Patient not taking: Reported on 06/06/2024) albuterol HFA 90 mcg/actuation HFA Inhale as instructed. estradiol (ESTRACE) 0.01 % (0.1 mg/gram) vaginal cream (Patient not taking: Reported on 04/11/2024) famotidine (PEPCID) 20 mg tablet Take 20 mg by mouth twice daily. cholecalciferol, vitamin D3, (VITAMIN D3 ORAL) Take 400 mg by mouth. No current facility-administered medications for this visit. Medications and allergies reviewed by this provider. SOCIAL HISTORY Social History Tobacco Use Smoking status: Never Smokeless tobacco: Never Vaping Use Vaping status: Never Used Substance Use Topics Alcohol use: Not Currently Drug use: Never REVIEW OF SYSTEMS All other reviewed and negative other than HPI. OBJECTIVE: BP 136/72 Pulse 70 Resp 18 Ht 165 cm (5' 4.96) Wt 67 kg (147 lb 12.8 oz) SpO2 95% BMI 24.62 kg/m? . Vital signs reviewed by this provider. APPEARANCE Well appearing, alert, in no acute distress, well-hydrated, well nourished. EYES conjunctiva and sclera normal. HEART RRR with normal S1 and S2, no murmurs, no gallops, no JVD appreciated LUNG clear to auscultation. No wheezes, rhonchi or rales EXTREMITIES Extremities normal, No deformities, No skin discoloration, and No edema SKIN Skin color, texture, turgor normal, no suspicious rashes or lesions to exposed skin Latest Ref Rng 01/03/2024 WBC 3.70 - 11.00 k/uL 7.76 RBC 3.90 - 5.20 m/uL 4.30 Hemoglobin 11.5 - 15.5 g/dL 13.1 Hematocrit 36.0 - 46.0 % 40.1 MCV 80.0 - 100.0 fL 93.3 MCH 26.0 - 34.0 pg 30.5 MCHC 30.5 - 36.0 g/dL 32.7 RDW-CV 11.5 - 15.0 % 14.9 Platelet Count 150 - 400 k/uL 279 MPV 9.0 - 12.7 fL 12.3 Neut% % 61.5 Abs Neut (ANC) 1.45 - 7.50 k/uL 4.77 Lymph% % 25.6 Abs Lymph 1.00 - 4.00 k/uL 1.99 Cloud% % 9.0 Abs Cloud <0.87 k/uL 0.70 Eosin% % 3.1 Abs Eosin <0.46 k/uL 0.24 Baso% % 0.3 Abs Baso <0.11 k/uL <0.03 Immature Gran % % 0.5 IMMATURE GRANS (ABS) <0.10 k/uL 0.04 NRBC /100 WBC 0.0 Absolute nRBC <0.01 k/uL <0.01 DTYPE Auto Protein, Total 6.3 - 8.0 g/dL 7.1 Albumin 3.9 - 4.9 g/dL 4.1 Calcium 8.5 - 10.2 mg/dL 9.8 Bilirubin, Total 0.2 - 1.3 mg/dL 0.4 Alkaline Phosphatase 34 - 123 U/L 45 AST 13 - 35 U/L 15 ALT 7 - 38 U/L 12 Glucose 74 - 99 mg/dL 141 (H) BUN 7 - 21 mg/dL 26 (H) Creatinine 0.58 - 0.96 mg/dL 1.21 (H) Sodium 136 - 144 mmol/L 139 Potassium 3.7 - 5.1 mmol/L 4.3 Chloride 98 - 107 mmol/L 104 CO2 22 - 30 mmol/L 24 Anion Gap 8 - 15 mmol/L 11 eGFR >=60 mL/min/1.73m? 46 (L) Hemoglobin A1C 4.3 - 5.6 % 5.8 (H) Estimated Average Glucose mg/dL 120 Legend: (more content not included)... Normal [facility] Office Visit Reporton 2024 Office Visit Report [facility] [address] [place] [address] OFFICE VISIT Date of Service: 05/14/24 MR#: [id number] Acct: [id number] Patient: BITA THOMPSON Rep #: [id number] : 1945 Provider: Dr. Brandt blackman MD Age/Sex: 78/F Location: [facility]. Status: Signed Intake Vital Signs 03/05/24 14:20 05/14/24 10:23 Height 5 ft 6 in 5 ft 6 in Weight: 149 lb 2 oz 150 lb 6 oz BMI 24.0 24.3 BP 162/70 H 150/80 H Blood Pressure Location Lt brachial Lt brachial Position Sitting Sitting Respiration 17 17 Pulse 76 76 Pulse Source Monitor Monitor Temp 98.4 F 98.2 F Temp Source Temporal Temporal Pulse Oximetry (%) 97 94 Oxygen Delivery Method room air room air Intake Visit Reasons: B12 inject Chief Complaint: Allergies primidone Allergy (Severe, Verified 02/13/24 13:18) Anaphylaxis montelukast Allergy (Intermediate, Verified 02/13/24 13:18) Other alcohol (From Mastisol Adhesive) Allergy (Unknown, Verified 02/13/24 13:18) Rash beef derived (bovine) Allergy (Unknown, Verified 02/13/24 13:18) Unknown gum mastic (From Mastisol Adhesive) Allergy (Unknown, Verified 02/13/24 13:18) Rash methyl salicylate (From Mastisol Adhesive) Allergy (Unknown, Verified 02/13/24 13:18) Rash mold Allergy (Unknown, Verified 02/13/24 13:18) Difficulty Breathing/Wheezing penicillin V Allergy (Unknown, Verified 02/13/24 13:18) Rash storax (From Mastisol Adhesive) Allergy (Unknown, Verified 02/13/24 13:18) Rash Yzpbjsp-WSW-QbU Reductase Inhibitor Allergy (Verified 02/13/24 13:18) NEEDS FOLLOW-UP black pepper Adverse Reaction (Unknown, Verified 02/13/24 13:18) UNKNOWN Is last menstrual period known: Yes Have you fallen in the past year?: Yes Office Meds cyanocobalamin (vitamin B-12) 1,000 mcg/mL injection solution Performing Provider: Brandt Dang MD Performing Location: [facility] Administered by: Estephania Ledesma on 05/14/24 10:06 Dose Route Admin Location Dispensed Lot Number Expiration Date NDC Man ufacturer 1,500 mcg IM left deltoid 1.5 mL [id number] 05/28/26 28093-620-42 ROSEMARYUVPIYUSH REES Comments: The patient presents for B12 injection for treatment of fatigue. She has fatigue. Her last B12 injection was of benefit for fatigue. The patient is awake and alert. B12 1500mcg IM was administered today. There were no complications. Assessment and Plan Assessment and Plan (1) Fatigue: Status: Chronic Qualifiers: Fatigue type: chronic, unspecified Qualified Code(s): R53.82 - Chronic fatigue, unspecified Orders: Orders Vitamin B12 Today R53.82 - Chronic fatigue, unspecified Clinical Quality Measures Falls Risk Screening/Assistive Devices Have you fallen in the past year?: Yes 05/14/24 1647 Date Brandt Garcia Signature: Date (if applicable) CC: [facility]20[facility] ----- BITA THOMPSON ([id number]) 1945 F Date Time Provider Department 05/08/24 RADHA MACIAS AGGASTACC During your visit today, we recorded the following information about you: Radha Macias RN 05/08/2024 10:02 AM Signed CRC returning pt's VM needing to r/s her Dr. Lockwood appointment. CRC messaged Thien Scott on pt's behalf and gave pt their office number. Radha Macias RN Allergies As of Date: 05/08/2024 Noted Allergy Reaction ADHESIVE TAPE-SILICONES 02/15/2024 16 - Unknown BEEF CONTAINING PRODUCTS 05/13/2020 14 - Other: See Comments BETA-BLOCKERS (BETA-ADRENERGIC BL*12/05/2020 5 - Intolerance BLACK PEPPER 05/13/2020 16 - Unknown CAT DANDER 05/13/2020 14 - Other: See Comments HORSE DANDER 05/13/2020 14 - Other: See Comments MUSHROOM 05/13/2020 2 - Rash PENICILLINS 12/05/2020 4 - Hives SEASONAL ALLERGIES 05/13/2020 16 - Unknown [id number]-BJZ-IRI REDUCTASE INHIBIT*12/05/2020 8 - GI Upset Date Reviewed: 04/11/2024 Reviewed by: Dolores Hernandez MA - Fully Assessed Reason for Visit: Returning Patient's Call [[id number]] Prescriptions as of 05/08/2024 - lisinopril (ZESTRIL) 20 mg tablet Take 1 tablet by mouth two times a day. - fenofibrate nanocrystallized (TRICOR) 145 mg tablet Take 1 tablet by mouth once daily. - propranolol (INDERAL) 10 mg tablet 2 tablets Orally twice a day - busPIRone (BUSPAR) 5 mg tablet Take 1 tablet by mouth every 12 hours. - folic acid 400 mcg tablet Folic Acid 400mg Active - albuterol HFA 90 mcg/actuation HFA Inhale as instructed. - estradiol (ESTRACE) 0.01 % (0.1 mg/gram) vaginal cream - famotidine (PEPCID) 20 mg tablet Take 20 mg by mouth twice daily. - cholecalciferol, vitamin D3, (VITAMIN D3 ORAL) Take 400 mg by mouth. Problem List As Of Date 05/08/2024 Noted Resolved History of ITP [Z86.2] CYNTHIA (obstructive sleep apnea) [G47.33] Mixed hyperlipidemia [E78.2] Essential hypertension [I10] Stage 2 chronic kidney disease [N18.2] History of skin cancer [Z85.828] Abnormal colonoscopy [R93.3] 05/13/2020 Essential tremor [G25.0] 05/13/2020 Vitamin D deficiency [E55.9] 05/13/2020 Gastroesophageal reflux disease [K21.9] 05/13/2020 Encounter Status:Closed by RADHA MACIAS on 05/08/24 [facility] CNOVvaleria 04-11-2024 CNOV Office Visit (GENSWS ) ----- BITA THOMPSON ([id number]) 1945 F Date Time Provider Department 04/11/24 1:00 PM NELSON TORREZ [facility] During your visit today, we recorded the following information about you: Pulse Blood pressure 70/minute 168/76 Nelson Torrez MD 04/11/2024 1:27 PM Signed FOLLOW UP VISIT NAME: Bita Thompson CLINIC NO.: [id number] DATE OF SERVICE: 04/11/2024 : 1945 REFERRING PHYSICIAN: Seferino Bita is a patient I am following for a lipoma versus sebaceous cyst in the right axillary region and a skin lesion on her left forearm. I performed excision of her right axillary site and then excision of the left forearm lesion on February 15, 2024. Pathology returned as: FINAL DIAGNOSIS A. Skin, left arm, excision: - Basal cell carcinoma, superficial and nodular types, see comment. B. Skin, right axillary, excision: - Epidermal inclusion cyst, ruptured. Diagnosis Comment A. The basal cell carcinoma is present at one peripheral margin of the excision specimen. Clinical correlation is recommended. The patient notes all sites are healing well with no complaints VITALS: Blood pressure 168/76, pulse 70, SpO2 97%. On examination, the right axillary site and the left forearm site are healing with no signs of residual concerns Assessment IMPRESSION: Ruptured sebaceous cyst right axilla and left forearm basal cell carcinoma extending to 1 peripheral antonio PLAN: If the patient notes any problems or signs of recurrence at the left forearm site, the patient should contact me immediately. We discussed the signs of a raised site or nodularity as a suspicious finding. We discussed the option of reexcision even though I felt clinically I excised the site completel She wishes to follow the site and not have it reexcised currently. Diagnoses: (C44.619) Basal cell carcinoma (BCC) of left upper arm (primary encounter diagnosis) Return to Clinic: The patient is instructed to follow-up with me as needed. __ Nelson Torrez MD Allergies As of Date: 04/11/2024 Noted Allergy Reaction ADHESIVE TAPE-SILICONES 02/15/2024 16 - Unknown BEEF CONTAINING PRODUCTS 05/13/2020 14 - Other: See Comments BETA-BLOCKERS (BETA-ADRENERGIC BL*12/05/2020 5 - Intolerance BLACK PEPPER 05/13/2020 16 - Unknown CAT DANDER 05/13/2020 14 - Other: See Comments HORSE DANDER 05/13/2020 14 - Other: See Comments MUSHROOM 05/13/2020 2 - Rash PENICILLINS 12/05/2020 4 - Hives SEASONAL ALLERGIES 05/13/2020 16 - Unknown GFMBMUJ-IUV-GMH REDUCTASE INHIBIT*12/05/2020 8 - GI Upset Date Reviewed: 04/11/2024 Reviewed by: Dolores Hernandez MA - Fully Assessed Reason for Visit: recheck left arm [Other] Primary Visit Diagnosis:Basal cell carcinoma (BCC) of left upper arm [C44.619] Prescriptions as of 04/11/2024 - fenofibrate nanocrystallized (TRICOR) 145 mg tablet Take 1 tablet by mouth once daily. - propranolol (INDERAL) 10 mg tablet 2 tablets Orally twice a day - busPIRone (BUSPAR) 5 mg tablet Take 1 tablet by mouth every 12 hours. - folic acid 400 mcg tablet Folic Acid 400mg Active - albuterol HFA 90 mcg/actuation HFA Inhale as instructed. - lisinopril (ZESTRIL, PRINIVIL) 20 mg tablet Take 20 mg by mouth twice daily. - estradiol (ESTRACE) 0.01 % (0.1 mg/gram) vaginal cream - famotidine (PEPCID) 20 mg tablet Take 20 mg by mouth twice daily. - cholecalciferol, vitamin D3, (VITAMIN D3 ORAL) Take 400 mg by mouth. 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] CYNTHIA (obstructive sleep apnea) [G47.33] Mixed hyperlipidemia [E78.2] Essential hypertension [I10] Stage 2 chronic kidney disease [N18.2] History of skin cancer [Z85.828] Abnormal colonoscopy [R93.3] 05/13/2020 Essential tremor [G25.0] 05/13/2020 Vitamin D deficiency [E55.9] 05/13/2020 Gastroesophageal reflux disease [K21.9] 05/13/2020 Encounter Status:Closed by NELSON TORREZ on 04/11/24 Normal [facility] Office Visit Reporton 2024 Office Visit Report [facility] [address] [place] [address] OFFICE VISIT Date of Service: 04/11/24 MR#: [id number] Acct: [id number] Patient: BITA THOMPSON Rep #: [id number] : 1945 Provider: Dr. Brandt blackman MD Age/Sex: 78/F Location: [facility] Status: Signed Intake Vital Signs 03/05/24 14:20 04/11/24 11:27 Height 5 ft 6 in 5 ft 6 in Weight: 149 lb 2 oz 150 lb BMI 24.0 24.2 BP 162/70 H 134/70 H Blood Pressure Location Lt brachial Lt brachial Position Sitting Sitting Respiration 17 16 Pulse 76 71 Pulse Source Monitor Monitor Temp 98.4 F 98.6 F Temp Source Temporal Temporal Pulse Oximetry (%) 97 96 Oxygen Delivery Method room air room air Intake Visit Reasons: B12 injection Chief Complaint: Allergies primidone Allergy (Severe, Verified 02/13/24 13:18) Anaphylaxis montelukast Allergy (Intermediate, Verified 02/13/24 13:18) Other alcohol (From Mastisol Adhesive) Allergy (Unknown, Verified 02/13/24 13:18) Rash beef derived (bovine) Allergy (Unknown, Verified 02/13/24 13:18) Unknown gum mastic (From Mastisol Adhesive) Allergy (Unknown, Verified 02/13/24 13:18) Rash methyl salicylate (From Mastisol Adhesive) Allergy (Unknown, Verified 02/13/24 13:18) Rash mold Allergy (Unknown, Verified 02/13/24 13:18) Difficulty Breathing/Wheezing penicillin V Allergy (Unknown, Verified 02/13/24 13:18) Rash storax (From Mastisol Adhesive) Allergy (Unknown, Verified 02/13/24 13:18) Rash Evnaxbx-GSE-LcE Reductase Inhibitor Allergy (Verified 02/13/24 13:18) NEEDS FOLLOW-UP black pepper Adverse Reaction (Unknown, Verified 02/13/24 13:18) UNKNOWN Have you fallen in the past year?: Yes (04/09/2024) Office Meds cyanocobalamin (vitamin B-12) 1,000 mcg/mL injection solution Performing Provider: Brandt Dang MD Performing Location: [facility] Administered by: Ragini Day on 04/11/24 11:35 Dose Route Admin Location Dispensed Lot Number Expiration Date NDC Man ufacturer 1,500 mcg IM Right Deltoid 1.5 mL [id number] 05/28/24 02481-430-04 OXANA REES Comments: The patient presents for vitamin B12 injection for treatment of fatigue. She has fatigue. Her last B12 injection was of benefit for fatigue. The patient is awake and alert. Vitamin B12 1,500 IM was administered today. There were no complications. Assessment and Plan Assessment and Plan (1) Fatigue: Status: Chronic Qualifiers: Fatigue type: chronic, unspecified Qualified Code(s): R53.82 - Chronic fatigue, unspecified Orders: Orders Vitamin B12 Today R53.82 - Chronic fatigue, unspecified Clinical Quality Measures Falls Risk Screening/Assistive Devices Have you fallen in the past year?: Yes (04/09/2024) 04/11/24 1611 Date Brandt Dang MD Cosigner Signature: Date (if applicable) CC: Normal [facility] Blood urea nitrogen (BUN)/cr eatinine ratioOrdered By: Angel Luis Middleton on 03-30-2024 Urea nitrogen/Creatinine [Mass ratio] 25.3 mg/mg High 10-20 [facility] Carbon dioxide measurementOr dered By: Angel Luis Middleton on 03-30-2024 CO2 [Moles/Vol] 25.0 mmol/L 21.0-32.0 [facility] Chloride measurementOrdered By: Angel Luis Middleton on 03-30-2024 Chloride [Moles/Vol] 107 mmol/L 98-107 [facility] Glomerular filtration rate ( GFR) estimationOrdered By: Angel Luis Middleton on 03-30-2024 GFR/1.73 sq M.predicted among non-blacks MDRD (S/P/Bld) [Vol rate/Area] 35 mL/min/{1.73_m2} Low >60 [facility] Comment on above: Non- GFR Calc Glucose measurementOrdered B y: Angel Luis Middleton on 03-30-2024 Glucose [Mass/Vol] 92 mg/dL 74-106 [facility] Potassium measurementOrdered By: Angel Luis Middleton on 03-30-2024 Potassium [Moles/Vol] 4.0 mmol/L 3.5-5.1 [facility] Protein+Creatinine Ratio,Uri neon 03-30-2024 PROT:CRE RATIO 227 mg/g CRE High 0-200 [facility] Comment on above: Performed By: #### L 500.3600, L501.0900 #### [facility] [address] [place], [address] Protein (U) [Mass/Vol] 19.8 mg/dL High <11.9 [facility] Comment on above: Performed By: #### L 500.3600, L501.0900 #### [facility] [address] [place], [address] UR CREAT 87.20 mg/dL Normal NO RANGE EST. [facility] Comment on above: Performed By: #### L 500.3600, L501.0900 #### [facility] [address] [place], [address] Random urine protein measure mentOrdered By: Angel Luis Middleton on 03-30-2024 Protein (U) [Mass/Vol] 19.8 mg/dL High 0.0-11.8 [facility] Renal Profileon 03-30-2024 Albumin [Mass/Vol] 3.5 g/dL Normal 3.2-5.0 [facility] Comment on above: Performed By: #### L 500.3600, L501.0900 #### [facility] [address] [place], [address] BUN/CRE 25.3 RATIO High 10-20 [facility] Comment on above: Performed By: #### L 500.3600, L501.0900 #### [facility] [address] [place], [address] CA,Total 9.7 mg/dL Normal 8.5-10.1 [facility] Comment on above: Performed By: #### L 500.3600, L501.0900 #### [facility] [address] [place], [address] Chloride [Moles/Vol] 107 mmol/L Normal 98-107 [facility] Comment on above: Performed By: #### L 500.3600, L501.0900 #### [facility] [address] [place], [address] CO2 [Moles/Vol] 25.0 mmol/L Normal 21.0-32.0 [facility] Comment on above: Performed By: #### L 500.3600, L501.0900 #### [facility] [address] [place], [address] Creatinine [Mass/Vol] 1.54 mg/dL High 0.55-1.02 [facility] Comment on above: Result Comment: The validity of the calculated GFR GFRAA in patients over 70 years has not been determined. Clinical correlation is essential. Performed By: #### L 500.3600, L501.0900 #### [facility] [address] [place], [address] EST GFR - AA 42 mL/min Low >60 [facility] Comment on above: Result Comment: Afri can Polish GFR Calc Performed By: #### L 500.3600, L501.0900 #### [facility] [address] [place], [address] GFR/1.73 sq M.predicted among non-blacks MDRD (S/P/Bld) [Vol rate/Area] 35 mL/min/{1.73_m2} Low >60 [facility] Comment on above: Result Comment: Non- GFR Calc Performed By: #### L 500.3600, L501.0900 #### [facility] [address] [place], [address] Glucose [Mass/Vol] 92 mg/dL Normal 74-106 [facility] Comment on above: Performed By: #### L 500.3600, L501.0900 #### [facility] [address] [place], [address] Phosphate [Mass/Vol] 3.0 mg/dL Normal 2.5-4.9 [facility] Comment on above: Performed By: #### L 500.3600, L501.0900 #### [facility] [address] [place], [address] Potassium [Moles/Vol] 4.0 mmol/L Normal 3.5-5.1 [facility] Comment on above: Performed By: #### L 500.3600, L501.0900 #### [facility] [address] [place], [address] Sodium [Moles/Vol] 139 mmol/L Normal 136-145 [facility] Comment on above: Performed By: #### L 500.3600, L501.0900 #### [facility] [address] [place], [address] Urea nitrogen [Mass/Vol] 39 mg/dL High 7-18 [facility] Comment on above: Performed By: #### L 500.3600, L501.0900 #### [facility] [address] [place], [address] Serum or plasma albumin diamond urement (mass/volume)Ordered By: Angel Luis Middleton on 03-30-2024 Albumin [Mass/Vol] 3.5 g/dL 3.2-5.0 [facility] Serum or plasma calcium diamond urement (mass/volume)Ordered By: Angel Luis Middleton on 03-30-2024 Calcium [Mass/Vol] 9.7 mg/dL 8.5-10.1 [facility] Serum or plasma creatinine m easurement (mass/volume)Ordered By: Angel Luis Middleton on 03-30-2024 Creatinine [Mass/Vol] 1.54 mg/dL High 0.55-1.02 [facility] Comment on above: The validity of the calculated GFR & GFRAA in patients over 70 years has not been determined. Clinical correlation is essential. Serum or plasma urea nitroge n measurement (mass/volume)Ordered By: Angel Luis Middleton on 03-30-2024 Urea nitrogen [Mass/Vol] 39 mg/dL High 09-14 [facility] Sodium levelOrdered By: Rohith Middleton on 03-30-2024 Sodium [Moles/Vol] 139 mmol/L 136-145 [facility] Urine creatinine measurement (mass/volume)Ordered By: Angel Luis Middleton on 03-30-2024 Creatinine (U) [Mass/Vol] 87.20 mg/dL NO RANGE EST. [facility] Urine protein/creatinine mas s ratioOrdered By: Angel Luis Middleton on 03-30-2024 Protein/Creatinine (U) [Mass ratio] 227 mg/g CRE High 0-200 [facility] CNOVon 03-14-2024 CNOV Office Visit (AGGENS 3) ----- BITA THOMPSON ([id number]) 1945 F Date Time Provider Department 03/14/24 1:00 PM ENMANUEL LOCKWOOD AGG3 During your visit today, we recorded the following information about you: Pulse Blood pressure Weight Height 78/minute 189/77 68 kg 1.651 m Enmanuel Lockwood MD 03/14/2024 2:05 PM Signed Enmanuel Lockwood M.D. Colon AND Rectal Surgery [address] [facility], [address] [place] [address] SUBJECTIVE Bita Thompson is a 78 year old White female with history of perianal condyloma and need for screening colonoscopy HPI Since I last saw her years ago, she is overall doing well, but does note slowly progressive constipation. She feels that when the stool comes down it is hard to get out and sometimes it feels like a trapdoor is blocking her. This is more problematic with a hard stools and a soft stool. She was put on MiraLAX at a point in the past but did not find this very helpful and is currently not on any bowel regimen. She does note some urgency of stool and even more urgency for urination. She does note that for a few years after the excision of condyloma in 2019 she felt her constipation was better but then it slowly came back to the problematic function She has had multiple prior colonoscopies with multiple polyps on the last 2 colonoscopies Review of Systems Constitutional: Negative for chills, fever and weight loss. Respiratory: Negative for shortness of breath and wheezing. Cardiovascular: Negative for chest pain and palpitations. Gastrointestinal: Negative for abdominal pain, blood in stool, constipation, diarrhea, heartburn, melena, nausea and vomiting. PAST MEDICAL HISTORY Diagnosis Date Anal condyloma Essential hypertension History of ITP History of skin cancer Mixed hyperlipidemia CYNTHIA (obstructive sleep apnea) Stage 2 chronic kidney disease PAST SURGICAL HISTORY Procedure Laterality Date BACK SURGERY HX L4-5, fx spine LAPAROSCOPIC SPLENECTOMY REMOVAL GALLBLADDER TOTAL ABDOM HYSTERECTOMY 1997 Social History Tobacco Use Smoking status: Never Smokeless tobacco: Never Vaping Use Vaping status: Never Used Substance Use Topics Alcohol use: Not Currently Drug use: Never FAMILY HISTORY Problem Relation Age of Onset Hypertension Mother Tremor Mother other (smoker) Mother Colon Cancer Father Cancer Father colon Hyperlipidemia Father other (smoker) Father The ROS, medical, surgical, family, and social history were reviewed by Enmanuel Lockwood MD ALLERGIES Allergen Reactions Adhesive Tape-Silic* Unknown Beef Containing Pro* Other: See Comments Beta-Blockers (Beta* Intolerance Black Pepper Unknown Cat Dander Other: See Comments Horse Dander Other: See Comments Mushroom Rash Penicillins Hives Seasonal Allergies Unknown Uksfnmd-Acp-Waz Red* GI Upset Current Outpatient Medications Medication Sig fenofibrate nanocrystallized (TRICOR) 145 mg tablet Take 1 tablet by mouth once daily. propranolol (INDERAL) 10 mg tablet 2 tablets Orally twice a day busPIRone (BUSPAR) 5 mg tablet Take 1 tablet by mouth every 12 hours. folic acid 400 mcg tablet Folic Acid 400mg Active albuterol HFA 90 mcg/actuation HFA Inhale as instructed. lisinopril (ZESTRIL, PRINIVIL) 20 mg tablet Take 20 mg by mouth twice daily. estradiol (ESTRACE) 0.01 % (0.1 mg/gram) vaginal cream famotidine (PEPCID) 20 mg tablet Take 20 mg by mouth twice daily. cholecalciferol, vitamin D3, (VITAMIN D3 ORAL) Take 400 mg by mouth. No current facility-administered medications for this visit. OBJECTIVE BP 189/77 (BP Site: Left Arm, BP Position: Sitting, BP Cuff Size: Regular Adult) Pulse 78 Ht 165.1 cm (5' 5) Wt 68 kg (150 lb) BMI 24.96 kg/m? BMI 24.96 kg/(m2) Physical Exam Constitutional: General: She is not in acute distress. Appearance: Normal appearance. She is not ill-appearing. Cardiovascular: Rate and Rhythm: Normal rate and regular rhythm. Heart sounds: Normal heart sounds. No murmur heard. No friction rub. No gallop. Pulmonary: Effort: Pulmonary effort is normal. No respiratory distress. Breath sounds: Normal breath sounds. No wheezing or rales. Abdominal: General: There is no distension. Palpations: Abdomen is soft. There is no hepatomegaly. Tenderness: There is no abdominal tenderness. Musculoskeletal: General: No deformity. Normal range of motion. Skin: General: Skin is warm and dry. Findings: No rash. Neurological: Mental Status: She is alert. Coordination: Coordination normal. Gait: Gait normal. Psychiatric: Mood and Affect: Mood normal. Judgment: Judgment normal. Hemoglobin (g/dL) Date Value 01/03/2024 13.1 Hematocrit (%) Date Value 01/03/2024 40.1 WBC (k/uL) Date Value 01/03/2024 7.76 Platelet Count (k/uL) Date Value (more content not included)... Normal [facility] CNPNon 03-14-2024 CNPN Telephone (AGGENS3) ----- BITA THOMPSON ([id number]) 1945 F Date Time Provider Department 03/14/24 ENMANUEL LOCKWOOD AGGENS3 During your visit today, we recorded the following information about you: Marcy Scott 03/14/2024 2:19 PM Signed Surgery Checklist Type: COLONOSCOPY Admission Type: outpatient Anesthesia: MAC Date: 05/25/24 Arrival Time: 10:00 AM Surgery Time: 11:00 AM Location: [facility] given at appointment. Marcy Lala 05/08/2024 10:39 AM Signed Spoke to the patient and she has requested to reschedule her Colonoscopy.The patient has been rescheduled to 07/20/24 @ 12:00 pm [facility]. Updated information has been sent to her MyChart. Marcy Lala 07/02/2024 10:58 AM Signed The patient called to cancel her Colonoscopy on 07/20/24 due to no transportation. Will call back to reschedule when she is able to get transportation. Marcy Lala 08/10/2024 9:09 AM Signed The patient called back to schedule her Colonoscopy can she just be scheduled? Marcy Lala 08/15/2024 10:31 AM Addendum Surgery Checklist Type: COLONOSCOPY Admission Type: outpatient Anesthesia: MAC Date: 09/21/24 Arrival Time: 11:30 AM Surgery Time: 12:30 PM Location: [place] [facility] Prep sent to the patient's Marcy Rodriguez Sonia Allergies As of Date: 03/14/2024 Noted Allergy Reaction ADHESIVE TAPE-SILICONES 02/15/2024 16 - Unknown BEEF CONTAINING PRODUCTS 05/13/2020 14 - Other: See Comments BETA-BLOCKERS (BETA-ADRENERGIC BL*12/05/2020 5 - Intolerance BLACK PEPPER 05/13/2020 16 - Unknown CAT DANDER 05/13/2020 14 - Other: See Comments HORSE DANDER 05/13/2020 14 - Other: See Comments MUSHROOM 05/13/2020 2 - Rash PENICILLINS 12/05/2020 4 - Hives SEASONAL ALLERGIES 05/13/2020 16 - Unknown EBSVMQG-UGK-WHP REDUCTASE INHIBIT*12/05/2020 8 - GI Upset Date Reviewed: 03/14/2024 Reviewed by: Enmanuel Lockwood MD - Fully Assessed Reason for Visit: Procedure [88] Cmt: COLONOSCOPY Canceled Colonoscopy [Other] Prescriptions as of 08/15/2024 - lisinopril (ZESTRIL) 20 mg tablet Take 1 tablet by mouth two times a day. - famotidine (PEPCID) 20 mg tablet Take 1 tablet by mouth once daily. - busPIRone (BUSPAR) 5 mg tablet Take 1 tablet by mouth two times a day. - fenofibrate nanocrystallized (TRICOR) 145 mg tablet Take 1 tablet by mouth once daily. - albuterol HFA 90 mcg/actuation HFA Inhale as instructed. - cholecalciferol, vitamin D3, (VITAMIN D3 ORAL) Take 400 mg by mouth. 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] CYNTHIA (obstructive sleep apnea) [G47.33] Mixed hyperlipidemia [E78.2] Essential hypertension [I10] Stage 2 chronic kidney disease [N18.2] History of skin cancer [Z85.828] Abnormal colonoscopy [R93.3] 05/13/2020 Essential tremor [G25.0] 05/13/2020 Vitamin D deficiency [E55.9] 05/13/2020 Gastroesophageal reflux disease [K21.9] 05/13/2020 Encounter Status:Closed by MARCY SCOTT on 03/14/24 [facility] CNPN Telephone (AGGENS3) ----- BITA THOMPSON ([id number]) 1945 F Date Time Provider Department 03/14/24 ENMANUEL LOCKWOOD AGGENS3 During your visit today, we recorded the following information about you: Marcy Scott 03/15/2024 10:16 AM Addendum A Consult to Physical Therapy ( Pelvic Floor Therapy) has been faxed. Confirmation number: [id number] Marcy Scott Allergies As of Date: 03/14/2024 Noted Allergy Reaction ADHESIVE TAPE-SILICONES 02/15/2024 16 - Unknown BEEF CONTAINING PRODUCTS 05/13/2020 14 - Other: See Comments BETA-BLOCKERS (BETA-ADRENERGIC BL*12/05/2020 5 - Intolerance BLACK PEPPER 05/13/2020 16 - Unknown CAT DANDER 05/13/2020 14 - Other: See Comments HORSE DANDER 05/13/2020 14 - Other: See Comments MUSHROOM 05/13/2020 2 - Rash PENICILLINS 12/05/2020 4 - Hives SEASONAL ALLERGIES 05/13/2020 16 - Unknown SNPXTNV-JUY-VYY REDUCTASE INHIBIT*12/05/2020 8 - GI Upset Date Reviewed: 03/14/2024 Reviewed by: Enmanuel Lockwood MD - Fully Assessed Reason for Visit: Consult [502] Cmt: Physical Therapy ( Pelvic Floor Therapy) Prescriptions as of 03/15/2024 - fenofibrate nanocrystallized (TRICOR) 145 mg tablet Take 1 tablet by mouth once daily. - propranolol (INDERAL) 10 mg tablet 2 tablets Orally twice a day - busPIRone (BUSPAR) 5 mg tablet Take 1 tablet by mouth every 12 hours. - folic acid 400 mcg tablet Folic Acid 400mg Active - albuterol HFA 90 mcg/actuation HFA Inhale as instructed. - lisinopril (ZESTRIL, PRINIVIL) 20 mg tablet Take 20 mg by mouth twice daily. - estradiol (ESTRACE) 0.01 % (0.1 mg/gram) vaginal cream - famotidine (PEPCID) 20 mg tablet Take 20 mg by mouth twice daily. - cholecalciferol, vitamin D3, (VITAMIN D3 ORAL) Take 400 mg by mouth. 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 [address] OFFICE VISIT Date of Service: 03/05/24 MR#: [id number] Acct: [id number] Patient: BITA THOMPSON Rep #: [id number] : 1945 Provider: Dr. Brandt blackman MD Age/Sex: 78/F Location: [facility] Status: Signed Intake Vital Signs 12/29/23 14:26 02/13/24 13:10 03/05/24 14:20 Height 5 ft 6 in 5 ft 6 in 5 ft 6 in Weight: 151 lb 3 oz 150 lb 149 lb 2 oz BMI 24.4 24.2 24.0 BP 140/70 H 138/70 H 162/70 H Blood Pressure Location Lt brachial Lt brachial Lt brachial Position Sitting Sitting Sitting Respiration 17 16 17 Pulse 74 81 76 Pulse Source Monitor Monitor Monitor Temp 98.4 F 98.9 F 98.4 F Temp Source Temporal Temporal Temporal Pulse Oximetry (%) 96 99 97 Oxygen Delivery Method room air room air room air Intake Visit Reasons: B12 inject Chief Complaint: Allergies primidone Allergy (Severe, Verified 02/13/24 13:18) Anaphylaxis montelukast Allergy (Intermediate, Verified 02/13/24 13:18) Other alcohol (From Mastisol Adhesive) Allergy (Unknown, Verified 02/13/24 13:18) Rash beef derived (bovine) Allergy (Unknown, Verified 02/13/24 13:18) Unknown gum mastic (From Mastisol Adhesive) Allergy (Unknown, Verified 02/13/24 13:18) Rash methyl salicylate (From Mastisol Adhesive) Allergy (Unknown, Verified 02/13/24 13:18) Rash mold Allergy (Unknown, Verified 02/13/24 13:18) Difficulty Breathing/Wheezing penicillin V Allergy (Unknown, Verified 02/13/24 13:18) Rash storax (From Mastisol Adhesive) Allergy (Unknown, Verified 02/13/24 13:18) Rash Vaioyge-BYM-UbB Reductase Inhibitor Allergy (Verified 02/13/24 13:18) NEEDS FOLLOW-UP black pepper Adverse Reaction (Unknown, Verified 02/13/24 13:18) UNKNOWN Have you fallen in the past year?: No Office Meds cyanocobalamin (vitamin B-12) 1,000 mcg/mL injection solution Performing Provider: Brandt Dang MD Performing Location: [facility] Administered by: Estephania Ledesma on 03/05/24 14:18 Dose Route Admin Location Dispensed Lot Number Expiration Date NDC Man ufacturer 1,500 mcg IM Left deltoid 1.5 mL [id number] 05/28/26 [id number] DYANA REES Comments: The patient presents for B12 injection for treatment of fatigue. She has fatigue. Her last B12 injection was of benefit for fatigue. The patient is awake and alert. B12 1500mcg IM was administered today. There were no complications. Assessment and Plan Assessment and Plan (1) Fatigue: Status: Chronic Qualifiers: Fatigue type: chronic, unspecified Qualified Code(s): R53.82 - Chronic fatigue, unspecified Orders: Orders Vitamin B12 Today R53.82 - Chronic fatigue, unspecified Clinical Quality Measures Falls Risk Screening/Assistive Devices Have you fallen in the past year?: No 03/05/24 1631 Date Brandt Garcia Signature: Date (if applicable) CC: [facility] SURGICAL PATHOLOGYOrdered By : Tosha Luna on 02-21-2024 Case Report Surgical Pathology R eport Case: [id number] Authorizing Provider: Nelson Torrez MD Collected: 02/15/2024 03:03 PM Ordering Location: General Surgery Received: 02/16/2024 08:10 AM Pathologist: Tosha Luna MD Specimens: A) - Lipoma, left arm B) - Lipoma, right axillary [facility] Work Phone: Clinical History w8sfjVJxATDyq0hdHGWf bGFuZ xKmRsOaXdHzEgy2EEOjuuD6Jk x2AZUcTXdecW5aHCMoQHjbG5q kcgXekSVpQRSoROo7nS2ghWtr nF8uLeDgOlHyQLVkeLHktVgdP XIgfQ== [facility] Work Phone: Diagnosis Comment n8bmhYZdXFHioWAfUIjq Mlxhb hJmQODbhADlY0VfquzwLCerUB 4tEB5leAgloMOhdCTtOMNbQsD pv3eoj289bXFiq1jtLSFYnzoe kOu6nYhhW11wr0Z5ScxrV75kk IMsSOJ6ISKnBMNdgXYuWAMaHD R5GHVmdHXuU5fyKPQrAQ3uxon sTXpjARacZCDwqSD1ZSDvlMRs S7AuKGAkAXjjHLSiupj1AtTsJ s2lbLXgqHauXMkkQQBiQZLuKN vzIWFrJfIfDJ4aWHXkLCFwWTJ xjJSoPHrzUSNmheBtcc1vIGUn rxXnpyTcCA42OUG1LK0xPVKhF TLvfLvdtiWqSQ4zgljwbzUjPp G4eWRiXCblnJUbk58pt7IfO9f uQY2oITUGzCyghXIizRPdf6Wq IQbmnAizgiAqgkGvVPHmnD1ms nFnLL6otDWbkG== [facility] Work Phone: FINAL DIAGNOSIS l0qfkAGuHEUoxSPeCQdj Mlxhb hFoSNIcfBYvN8RtpiuzCQttZM 0mPH0hwAnurAAhkDFhKSDcKcO wx6nvo309uJMby9kmNJILcpjb gTv4fWqbU80xl7C4OckhL58sc VKtBSV0CMVeBKPabUEyMOGwAX R4MNLteMHoE8roWAVoED7nird uBYttFGniUDViiQM2TCNzxOPn X5LlEKPhKGzgEXZjdsp6DkMnA u0teDMohQobRMhhVXQhMKPvEQ khVJEwCeOnPU4wM5uscwqwpHD bcHUtqa3oAYP5B7qxdQ3bXaTd rQxhVKVfYNSsu1ClYPGlcDdhL 2ClB5nsl95eEQYzeSZlggEsI6 hagUHvcaQcka2coEylgdO7pKB qhbffv5WuSIQbfR5nixEcWGHz isxoGMXvXr4nMRRtuX9qBPReT 6u4CZG2gFkaGZA8JTHnsMHdg2 jdhrxhyMHnGI5nWSWlPWGipFA zJQfmJ6b3s3sxrmHcmUW7NNBx nWP3cFBnXQ3iqVLzNZEvxpBQP pTjTz9eQW2fXNW5UKEfbz1= [facility] Work Phone: Gross Description s9xdyTXjSYPayCYMXVJ5 MDFcY C8vtWasrSv2nTdlLMEiebG7oT CxNKbdy1dhIVA2s8fxtjNXLgd aVQSpBY3kGOetCJQeSG6gSaQq XGRlZmYxXHBhcGVydzEyMjQwX FXulBAmwRJ7UXXeHP4taitoZQ vgFXbkWRQrpuY1ABFjkRWhJ4F tVOBuFX6zwuldSWU6IURWHtwr Xp1twCNaqToaXfRhNvYdBHGoC YPdMTRvb6yxjbGPrdtqmBm9zZ 8AEWRdJ0NyUH6Wy7yeLWXnlUO hPKG3YAggk5fyKQdnWCY5NXTx GDCwOAHjMI5EHbOiDVkxWVV9V NJtQyZ9BMf2UKRHULTxPSNwSS J7EuBdZSt4WFvxDKfsjNFbHKJ oEXEeXZWtSDwwpfQ6t4lsWPRs gCHoLTJ2IAlbu6suSSlgCUL5S NQwMkYmNQZiYY5EPdEnTSguTW P2SGPqUhS2SBp3KARRQfNjDlS cViUuVlA6AueiNDs1SWm2UFuA OoNhQCC7YFj2PRv9GvX5YXDaA yBcXHQgMiBcXHNzIDMgXFxmbC SvEP8ovWbdTNGfKA6TQFCbNPb rYRFxLrOaVJ0fADmpg56hEFt1 mdUwULRyikBHBhplFEDuNP0AM BWhOKnnICw0glBkFLGaTrSbNN JqA15vm3EVw6AvWR3FSIv6paT tbwdkTODpYMRdoMYEn0XrEQIY HkpqerNkJECdY3KotmGsIXyoB DJccl3qvTllMWchTlKuCLOxYn qcVwRwCFZfKAiulK2jDTCqAYQ uUPYbN4yskB4txyxsVEhmx3Dz jHGkwPMwn9DzqSNeDLCfuY5aV L8cLEZ4OoD5bLLgWP05waT4oU AfgMOtWCPyD06lrnMdQyCqkEM eQA13WPliMG16OTiiGI2pEDPm TCEmCQVaFGolBL69GUYlHBwrO MNxAUT2QFUlLZD9WTEtZdHniK 0lPOkmXEJolB3hl5ZtAcNoJKY jWPRfTJPfedRiBRVuZMPqJH7a QNglTLEfR33iqxKhMNLrRUAku IAgL4XvLFQorrSwsW7qtVEuOL FofAp8YMG4Nk9vmTWwBJNcrcY bCWLcITM2RCVgVNJnwKnqEITo PPn3EgHkBKUpHZYqCNF1yTPge MtiHZxlSVXeQ66to1EEc6Gnv9 xspYfll1XneYUaMM4bpQHpWN1 Uk5yuTZQfuNDjCOF5KNlkf5pe IZaqJOA3HXHvYpBtXCEcOP0IA fQdIWefAMA7ZUDpFcI5DRg8KN KYRxIcXjEhVrCmWsK0WBFrXGd 3POd8HSuULyWzGKS7JLa2QMCp QtN9MVGlKwFyWPQaYtUeEERkU SYfWCpcjEWbAU5jkQvjWYCtZN AwKJY2AKPgoJTIi0YyQRLnSGh cZnMyMiBCLiBMaXBvbWFccGFy LB3ANRDgzvAfRRrxuWjdeU7mp ZZqA2viKxQbGbvvjZxcMsWbyF RvYzEgDQpcbHRycGFyXHNiMzB mPSHhL7hgLjMlBP7YDCShCpOi CtOtFMo0XHMcmH0nAw1cbCHqd I5vwPFcKLobIAJxzCfjz01lOE VdX4h3GDM1aJmuXXF3AkEdasF gMSBjeWxpbmRyaWNhbCBhbmQg GHQsbdBbY4CuUPMqt5ImbXFry HPmCtX6TN6pu5jpirNnacVey3 CdE7S1KP5co8TySCVui9F4GN3 pFKjiVCS7nCdyFVBuF3OuVYHr U72exqMfbCZbCI46CZmwZI58E SasQP4zLCQdMDVmIJQ8oFVgeQ RxTTw6gLHqEAKeB94rmrGzrEI mRS05XNrwCU5yZFaoZF2fAZTc EkMOcLNvJ7pyqV1fhpdaBXpuc 2BhgTCeqWLfgjKjuITgX7EjBL BfizQee0AquFx5uWQtPHxfAZX zo9MmvQYbOQCqRtMKyWIvxTRc WSl2mPHsITGxH64mpiRrwLEzr 0GztRd9eRQzURkhbTEaiFMdpw oiCHCVDl2wtHSlLH4OIHTgymM kiHZgqXKlJJ7BGVTzteWHAjde o2HeNLQ9YH5eogF7oX6zUJCwh ePykr3aGCChjIGDeRV2CFewah YrQ9rupicwAQ9fwI6wJ2BupYZ zCYy8OZUrAWNcqZyoTLO8DQek X0qkuxIoXU2zNQHHBZM7MOE3J PkpPVQgKVnrmUMoEN1PZNJtIj UzUNLqF9poTECgNK9KVwqFNGD iStYjXdA3XLAeEkI9GYCVSM7G URLziSEHOQC5KE4qJQdjTZOqV 5BpI0YxnsI2u7risXnmh3ZdkC EkHD4ygUVrIH7ZPIIusoEhHUg cZnMyMiANCn0= [facility] Work Phone: Performing Lab s4iubZFbSDAydTXzFwYe MDAwX RFgx1fgHWNnkJJlJnFkCpGcKa DfGepeyFJwIMTrDbMsf0ivo09 4eRNwk9rkYICmXxC6oEPgZAMh iFAjE338XXBjQUppm8opg2AbD MPduETcz0A2AIMRrklmcUq6hC kpP59ba2M0GjcwA5lsCLYvBJX nG4OvOP1hUWYtSyd9VQT2ZNT7 XYFwFFTeQ3OeKN2dDJQpaMWvN Ha0e4gaxNtzVMOeFWN2z2rfOB penqFkVA3ofg2dyWo0n9zsqeL nTMCpZNKiwPMHXWRkW8KxtXyk Ck5egSc0kUdrXzjzPMQ4Igc6X Z8kjd52eky4fFjuMSViqjpoDt U7IIiaHOHfpterJBn0XMhtFQG twZE7CLYhpHRsV0QzRXjgKM0k bun1TPN3XKskZWZkDhG2EECfj IRqAWNsyWrlOEhjx547QRU5Kz VaDB5cO7Erp6X6hJ7dcHNpBTL tsTHiChYtFZJoqn5ouAAlBLkg d1OvAFZ6gyP9qVGhjKNpKDKeX G64Cthlq1BsHpszk8GsV06jsF W6PJklj5blIS7xIsC8moQwPVi re7wcnI7iDmC2KDpsJJ4tBT8u XKEmlC8xklmfRIEzRsHiuihmM EYckCpcfuEgZe8oiZwfYOL3XI vjP2cdtJ7xTyH2WCvoU4hywJ9 fFMz1UBrdsTG0NBBndV4oGA0s bpkze2enOVlxVPpzKVMkgkY7u dYrIXQbjSZqO8RemS3oJTQzDZ 8vpuboz4rsHSE7YIptWWUfKWF 4JbBhRKBmq0Pqcmk7NcDkg8Sd pDVhJPzhF99vj331ZFNbasLlY 1xwbGFpblxwbGFpblxmMFxmcz I3KFHnTQUmZJhfRGIiYZClZpK cbGFuZzEwMzNcaGljaFxmMVxk EwBjTJOaDYsgD8zkNfKbKbKyR HYCrZYxtp6jtRfnPZjwfYTndG LyjPH2hG6tZRClfbZgvf7wIPD niBZWiLM6DGityhRnB3kbkljv NQB9FZBkQMW9N1biZGWHnwNtU DMwSDVliGOjCFAZDVW6IDA9TK UcGDDIBPOgOSX8JAD7HYPhJKG ccGFyXHBhclxwYXJkXHBsYWlu DTAcORZmSbRvpTnzgP3cPeEeT jSvYNyeAT6pAXUyN0umeIGuNG YlEMUwR4oaFxFnfG6abUbrEZx jZjJcZnMyMFxsdHJjaCBMYWJv gsY9p9H4KHxlhAIsljqmMZtpi jLvHEhgcypsZGRsPQxbK4ipMm JrNWTmcEutJVdot5VaQZTxROW vUiNsZBsvQDQ2g7K8LJseoALx pjNCSvRJSH4crTDhnucqOF7FV lxwbGFpblxmMVxmczIyXGxhbm djAYSwLGccQ1kfHkOhSIGepJm wWOjal9NqLKMaRWAqKxYlnXCl fQ== [facility] Work Phone: [facility] Work Phone: PAPOOVvaleria 02-15-2024 CNOV Office Visit (GENSWS ) ----- BITA THOMPSON ([id number]) 1945 F Date Time Provider Department 02/15/24 2:15 PM NELSON TORREZ During your visit today, we recorded the following information about you: Tad Biggs RN 02/15/2024 2:36 PM Signed The following instructions are important for you related to your office visit today with the [facility] General Surgeons. Instructions After SKIN EXCISION-SUTURES You can remove the dressing in two days. If the dressing becomes soaked or had significant drainage, the dressing should be changed. If there is minor bleeding from this skin edge, you should hold pressure on the incision until the bleeding stops. If there is continued bleeding, you should contact our office immediately. You do not need to leave a dressing on the wound after two days. If the wound shows signs of redness, inflammation, or purulent drainage, you should contact our office immediately. You should keep the wound dry for the first two days. After that time, you may wash the wound with gentle soap and water. The wound should not be immersed in a pool, bathtub, or even hot tub. We prefer to check the incision and remove the stitches in our office when ready. Please make an appointment to return to our office in 7-10 days for suture removal. Please do not remove the stitches yourself without approval from our office. If you note any additional difficulties, questions, or concerns, you should contact our office immediately @ [phone] and ask to be transferred to the General Surgery department. Tad Biggs RN 02/15/2024 3:03 PM Signed UNIVERSAL PROTOCOL / SAFETY CHECKLIST Procedure to be Performed: Excision of right axillary sebaceous cyst, excision of left forearm skin lesion Sign In: A Moment of CARE was completed. Personnel directly involved with the procedure wore the appropriate PPE (Personal Protective Equipment). No special equipment needed. Patient/Surrogate Stated/Verified: PATIENT VERIFIED(optional for EMERGENT procedures): Patient name, Date of , Relevant allergies, and The intended procedure Time Out Communication: Intended patient and procedure match the source documents. Consent documented and matches the intended procedure. Relevant labs, photos, and/or imaging studies have been reviewed. Correct side/site marked and visible. Medications required for procedure verified. No fire risk assessment and interventions applicable. No implant(s) inserted. Sign Out: SIGN OUT (optional for EMERGENT procedures): All specimen containers correctly labeled. All instruments, equipment, possible retained foreign bodies accounted for. Post-procedure follow-up management communicated and Plan of Care Visit completed when applicable. PATRIA Ramirez Richard T, MD 02/24/2024 4:52 AM Signed FOLLOW UP VISIT - SKIN LESION NAME: Bita [facility] NO.: [id number] DATE OF SERVICE: 02/15/2024 : 1945 REFERRING PHYSICIAN: Indio Medina MD Bita is a patient I am following for a a sebaceous cyst in her right axilla that became inflamed and complaint of a slightly discolored area on her left forearm. Bita returns today for the procedure. Bita has not taken aspirin or aspirin products for the past 7 days. VITALS: There were no vitals taken for this visit. On examination, the sebaceous cyst was resolved and is currently approximately 1/2 mm in size. There are 2 areas on her left forearm consistent with slightly exophytic seborrheic keratoses PROCEDURE: EXCISION OF SKIN LESION The risks, benefits and anticipated outcomes of the procedure, the risks and benefits of the alternatives to the procedure, and the roles and tasks of the personnel to be involved, were discussed with the patient, and the patient consents to the procedure and agrees to proceed. I verify that I personally obtained the patient's consent. The patient`s skin was prepped and draped in the usual fashion. A combination of Lidocaine and Marcaine was injected into the skin. An elliptical incision was made around the lesion and was removed in its entirety. The specimen measured 0.5 by 0.5 cm. This was sent to pathology. The skin was then closed with interrupted 5-0 nylon sutures. The patient tolerated the procedure well. PROCEDURE: EXCISION OF SEBACEOUS CYST - RIGHT AXILLA The risks, benefits and anticipated outcomes of the procedure, the risks and benefits of the alternatives to the procedure, and the roles and tasks of the personnel to be involved, were discussed with the patient, and the patient consents to the procedure and agrees to proceed. I verify that I personally obtained the patient's consent. The patient`s skin was prepped and draped in the usual fashion. A combination of Lidocaine and Marcaine was injected into the skin. An elipt (more content not included)... Normal [facility] SURGICAL PATHOLOGYon 024 CASE REPORT Normal [facility] Comment on above: Order Comment: Speci men Type: TISSUE SPECIMENOrdering Facility: [facility] Address: [address] [place] [address] Result Comment: Surg [facility] Pathology Report Case: [id number] Authorizing Provider: Nelson Torrez MD Collected: 02/15/2024 03:03 PM Ordering Location: General Surgery Received: 02/16/2024 08:10 AM Pathologist: Tosha Luna MD Specimens: A) - Lipoma, left arm B) - Lipoma, right axillary Performed By: #### S ####[facility] LABCLIA [id number] [place] [address] [place] CLINICAL HISTORY lipom Normal [facility] Comment on above: Order Comment: Speci men Type: TISSUE SPECIMENOrdering Facility: [facility] Address: [address] [place] [address] Performed By: #### S ####[facility] LABCLIA [id number] [place] [address] [place] DIAGNOSIS COMMENT A. The basal cell carcinoma is present at one peripheral margin of the excision specimen. Clinical correlation is recommended. Normal [facility] Comment on above: Order Comment: Speci men Type: TISSUE SPECIMENOrdering Facility: [facility] Address: [address] [place] [address] Performed By: #### S ####[facility] LABCLIA [id number] [place] [address] [place] FINAL DIAGNOSIS Normal [facility] Comment on above: Order Comment: Speci men Type: TISSUE SPECIMENOrdering Facility: [facility] Address: [address] [place] [address] Result Comment: A. S kin, left arm, excision: - Basal cell carcinoma, superficial and nodular types, see comment. B. Skin, right axillary, excision: - Epidermal inclusion cyst, ruptured. CR 02/21/2024 Performed By: #### S ####[facility] LABCLIA [id number] [address] [place] FINAL PERFORMING LAB Normal [facility] Comment on above: Order Comment: Speci men Type: TISSUE SPECIMENOrdering Facility: [facility] Address: [address] [place] [address] Result Comment: Diag nostic interpretation performed at [facility], [address] [place] [address] CLIA# [id number] Fabric Cutter: Rolando García M.D. Performed By: #### S ####[facility] LABCLIA [id number] [address] STATES OF [facility] GROSS DESCRIPTION A. Lipoma Normal [facility] Comment on above: Order Comment: Speci men Type: TISSUE SPECIMENOrdering Facility: [facility] Address: [address] [place] [address] Result Comment: Rece ived in formalin labeled left arm lipoma are 2 cylindrical segments of lee skin and subcutaneous tissue. Segment #1 is 0.5 x 0.4 x 0.3 cm and segment #2 is 0.5 x 0.4 x 0.2 cm. The skin surfaces are unremarkable. The segments are bisected and individually submitted in cassettes A1-A2, respectively. B. Lipoma Received in formalin labeled lipoma right axillary are 1 cylindrical and 1 irregular segment of lee skin and subcutaneous tissue. The cylindrical segment is 0.5 x 0.5 x 0.2 cm and the irregular segment is 0.4 x 0.3 x 0.2 cm. The cylindrical segment is bisected and submitted in cassette B1. The irregular segment is submitted intact inked B2. Gross examination performed at [address], [place] [address] JXM 02/17/24 10:29 AM Performed By: #### S ####[facility] LABCLIA [id number] [facility] [id number] [id number] [place] Neurology Visit Reporton Neurology Visit Report [facility] [address], [address] [place] [address] OFFICE VISIT Date of Service: 02/13/24 MR#: [id number] Acct: [id number] Name: BITA THOMPSON Rep #: [id number] : 1945 Provider: Dr. Brandt blackman MD Age/Sex: 78/F Location: [facility] Status: Signed with Addenda ADDENDUM by Dr. Brandt Dang MD on 05/14/24 at 1607 Addendum Addendum (05/14/2024): Per the patient's request, a rollator will be ordered for her abnormal gait. 05/14/24 1607 Date Brandt Dang MD cc: * Signed HPI HPI Chief Complaint: Details: Interim History: Bita returns for follow-up visit. She has a history of hyperlipidemia, obstructive sleep apnea on CPAP, COPD, basal cell skin cancer status post excision, stage III renal insufficiency, prior history of idiopathic thrombocytopenic purpura (status post splenectomy in 1969) and essential tremor. She has had a tremor since she was a teenager and this worsened during adulthood. Her tremor has interfered with activities including handwriting and using cooking utensils. The tremor affects both hands and is increased with action and when she is tired or anxious. She also has a head tremor. Increasing her dose of propranolol to 20 mg twice daily has been of benefit for her tremor and has been well-tolerated. Primidone 50 mg daily, tried in years past, was not of benefit and caused sedation. Buspirone, initiated in 2022, has been of benefit for her anxiety; buspirone 10 mg twice daily caused a dry mouth and she reduced her dose of buspirone 5 mg twice daily and is tolerating this well. Her tremor slightly decreased further following initiation of buspirone. Her anxiety, at times, remains prominent. She has had nystagmus noted on examination since childhood. Since around 2006, she has had gait imbalance. She has had physical therapy multiple times in the past. She has had low back pain and has bilateral hip pain and a feeling of stiffness in the hips. She had a fall in 2015 and sustained lumbar compression fracture(s) and underwent lumbar surgery at the L3-4-5 levels in 2015. This was of benefit and her low back pain subsided. She denied having any radicular pain in the lower extremities. She had a fall in 2020 and sustained a left hip fracture for which she underwent a partial hip replacement. She has had neck pain that radiates to the left shoulder since her fall in 2020. Cervical paraspinal/upper trapezius muscle trigger point injections have been of benefit for her musculoskeletal pain though her last injection was less effective than prior injections. Acetaminophen has been of benefit for her musculoskeletal pain. She denied having weakness. She reported that the cause of her nystagmus is unknown. She has chronic anxiety. She was hospitalized in August 2021 for urinary tract infection with acute renal insufficiency superimposed on chronic renal insufficiency. B12 1500 mcg IM injections have been of benefit for her fatigue. 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 She is being seen at the [facility] for her right knee and right hip arthritic pain. A right knee joint injection was of benefit. She has been prescribed a brace and is receiving physical therapy and is to follow-up with her orthopedic surgeon. Physical Exam: Neuro: The patient is awake and alert and responds appropriately; speech is fluent but tremulous; a slight fine bilateral hand tremor is noted when arms are extended; a head tremor is noted Neck: No bruits Heart: regular rate and rhythm Supplemental Info CBC, CMP (03/18/2021): BUN 38, creatinine 1.37, EGFR 40, glucose 125. TSH, creatinine (04/09/21): creatinine 1.61, eGFR 33 Head MRI (04/23/21): FINDINGS: BRAIN AND EXTRA-AXIAL SPACES: T2 FLAIR hyperintensity foci in the white matter of both cerebral hemispheres are nonenhancing and have no mass effects. These are chronic white matter ischemic changes. No enhancing lesions intraaxially and extra-axially. No remote cortical based ischemic infarcts. No midline shift and no mass effects. Normal ventricles and cisterns. No intra- or extra-axial hemorrhage. Posterior fossa structures are unremarkable. SELLA: Unremarkable. Normal sella turcica, pituitary gland, infundibular stalk, optic chiasm and hypothalamus. AUDITORY SYSTEM: Unremarkable. The internal auditory canals are patent. BONES/JOINTS: Unremarkable. No discrete lytic or blastic abnormalities. SINUSES: Unremarkable as visualized. Clear. MASTOID AIR CELLS: Unremarkable as visualized. Clear. ORBITS: Unremarkable as visualized. Both globes, extraocular muscles, optic nerves and retrobulbar fat appear unremarkable. VASCULATURE: Unremarkable as visualized. Normal flow voids in the major intracranial circulation. IMPRESSION: 1. No MRI evide (more content not included)... Normal [facility] Office Visit Reporton 2023 Office Visit Report [facility] [address] [place] [address] OFFICE VISIT Date of Service: 01/31/24 MR#: [id number] Acct: [id number] Patient: BITA THOMPSON Rep #: [id number] : 1945 Provider: Dr. Brandt blackman MD Age/Sex: 78/F Location: [facility]. Status: Signed Intake Vital Signs 11/28/23 14:46 01/31/24 09:47 Height 5 ft 6 in 5 ft 6 in Weight: 150 lb 13 oz 151 lb 8 oz BMI 24.3 24.4 BP 140/70 H 136/74 H Blood Pressure Location Lt brachial Lt brachial Position Sitting Sitting Respiration 17 17 Pulse 67 67 Pulse Source Monitor Monitor Temp 98.9 F 98.2 F Temp Source Temporal Temporal Pulse Oximetry (%) 94 96 Oxygen Delivery Method room air room air Intake Visit Reasons: B12 inject Chief Complaint: Allergies primidone Allergy (Severe, Verified 09/06/23 14:57) Anaphylaxis montelukast Allergy (Intermediate, Verified 09/06/23 14:57) Other alcohol (From Mastisol Adhesive) Allergy (Unknown, Verified 09/06/23 14:57) Rash beef derived (bovine) Allergy (Unknown, Verified 09/06/23 14:57) Unknown gum mastic (From Mastisol Adhesive) Allergy (Unknown, Verified 09/06/23 14:57) Rash methyl salicylate (From Mastisol Adhesive) Allergy (Unknown, Verified 09/06/23 14:57) Rash mold Allergy (Unknown, Verified 09/06/23 14:57) Difficulty Breathing/Wheezing penicillin V Allergy (Unknown, Verified 09/06/23 14:57) Rash storax (From Mastisol Adhesive) Allergy (Unknown, Verified 09/06/23 14:57) Rash Cgiekak-XHM-HuA Reductase Inhibitor Allergy (Verified 09/06/23 14:57) NEEDS FOLLOW-UP black pepper Adverse Reaction (Unknown, Verified 09/06/23 14:57) UNKNOWN Have you fallen in the past year?: No Office Meds cyanocobalamin (vitamin B-12) 1,000 mcg/mL injection solution Performing Provider: Brandt Dang MD Performing Location: [facility] Administered by: Estephania Ledesma on 01/31/24 09:49 Dose Route Admin Location Dispensed Lot Number Expiration Date [facility] ufacturer 1,500 mcg IM left deltoid 1.5 mL [id number] 03/30/26 29234-838-73 DYANA REES Comments: The patient presents for B12 injection for treatment of fatigue. She has fatigue. Her last B12 injection was of benefit for fatigue. The patient is awake and alert. B12 1500mcg IM was administered today. There were no complications. Nursing Note Patient was given B12 1500mcg IM today - order was placed incorrectly Assessment and Plan Assessment and Plan (1) Fatigue: Status: Chronic Qualifiers: Fatigue type: chronic, unspecified Qualified Code(s): R53.82 - Chronic fatigue, unspecified Orders: Orders Vitamin B12 Today R53.82 - Chronic fatigue, unspecified Plan Details Additional Comments: B12 1500 mcg IM was administered today. Clinical Quality Measures Falls Risk Screening/Assistive Devices Have you fallen in the past year?: No 01/31/24 1704 Date Brandt Dang MD Cosigner Signature: Date (if applicable) CC: Normal [facility] Janis 01-18-2024 [facility] Office Visit (GENSWS ) ----- BITA THOMPSON ([id number]) 1945 F Date Time Provider Department 01/18/24 3:45 PM NELSON TORREZ During your visit today, we recorded the following information about you: Temperature Pulse Blood pressure Weight 97.1 degrees 78/minute 142/80 68.4 kg Height 1.651 m Tad Biggs RN 01/18/2024 3:59 PM Signed REVIEW OF SYSTEMS: General: The patient denies fatigue, denies weight loss, denies weight gain, denies feeling hot, and denies feelings of cold. Eyes: The patient denies glaucoma, NOTES eye injury/surgery, does not wear glasses or contacts. Ear/Nose/Throat: The patient NOTES allergies, NOTES hayfever, denies ear infections, and NOTES bloody noses. Cardiovascular: The patient denies chest pain, denies heart disease, NOTES high blood pressure,denies cardiac stent, denies prior heart attack, NOTES irregular heart beat, NOTES high cholesterol, denies poor circulation, denies heart failure, other cardiac issues, NOTES claudication, denies cold feet, denies peripheral arterial stent. Respiratory: The patient denies tuberculosis, NOTES pneumonia, NOTES frequent cough, denies pulmonary embolism, denies shortness of breath, and denies coughing up blood. Gastrointestinal: The patient denies difficulty swallowing, NOTES acid reflux, denies ulcers, denies vomiting, denies jaundice/hepatitis, NOTES gallbladder problems, denies black or tarry stools, denies hemorrhoids, NOTES bleeding from rectum, NOTES diverticulitis, denies constipation, denies diarrhea, denies loss of stool control, and denies hernias. Kidney/Bladder: The patient NOTES kidney stones, NOTES urine infections, and NOTES bloody urine. Skin: The patient NOTES a history of skin cancer, denies bleeding/changing moles, and NOTES a history of skin rash. Neurologic: The patient denies a history of epilepsy/convulsions, denies headaches, NOTES head/spinal injuries, and denies stroke/TIA. Psychiatric: The patient denies psychiatric medications, denies depression, and denies voices, denies substance abuse. Endocrine: The patient denies thyroid disorders, denies diabetes, and denies hormonal problems. Hematologic: The patient NOTES a history of bruising, NOTES bleeding, and denies anemia, denies blood clots. Infections: The patient NOTES a history of measles and mumps, NOTES rheumatic fever, and denies sexually transmitted diseases. Musculoskeletal: The patient NOTES back pain/injury, denies back problems, denies sciatica, NOTES knee/foot trouble, NOTES arthritis, or denies gout. When was patient's last Mammogram screening? 2013 Last Colonoscopy: NONE Tad Biggs, Nelson Morrison MD 01/20/2024 5:36 PM Signed HISTORY AND PHYSICAL Bita Thompson 1945 REFERRING PHYSICIAN: Zara Galloway APRN.C* CHIEF COMPLAINT: skin lesion HPI: The patient is a 78 year old female. She notes a sebaceous cyst in her right axillary area. She has noticed this for 20 years 1 week previously the area became swollen and was uncomfortable. She notes that in the last 2 years it is swelled and then drained spontaneously twice. She was seen in family medicine was noted that it was inflamed and was started on Keflex. She presents today for consideration for excision she notes that it is no longer tender or red. The patient was referred for evaluation by Zara Galloway. SIGNIFICANT MEDICAL PROBLEMS: PAST MEDICAL HISTORY Diagnosis Date Anal condyloma Essential hypertension History of ITP History of skin cancer Mixed hyperlipidemia CYNTHIA (obstructive sleep apnea) Stage 2 chronic kidney disease OPERATIONS: PAST SURGICAL HISTORY Procedure Laterality Date BACK SURGERY HX L4-5, fx spine LAPAROSCOPIC SPLENECTOMY REMOVAL GALLBLADDER TOTAL ABDOM HYSTERECTOMY 1997 CURRENT MEDICATIONS: Current Outpatient Medications Medication Sig Dispense Refill propranolol (INDERAL) 10 mg tablet 2 tablets Orally twice a day busPIRone (BUSPAR) 5 mg tablet Take 1 tablet by mouth every 12 hours. folic acid 400 mcg tablet Folic Acid 400mg Active albuterol HFA 90 mcg/actuation HFA Inhale as instructed. lisinopril (ZESTRIL, PRINIVIL) 20 mg tablet Take 20 mg by mouth twice daily. fenofibrate nanocrystallized (TRICOR) 145 mg tablet Take 145 mg by mouth once daily. famotidine (PEPCID) 20 mg tablet Take 20 mg by mouth twice daily. cholecalciferol, vitamin D3, (VITAMIN D3 ORAL) Take 400 mg by mouth. Doxycycline Monohydrate 40 mg capsule estradiol (ESTRACE) 0.01 % (0.1 mg/gram) vaginal cream No current facility-administered medications for this visit. ALLERGIES: Beef Containing Products, Beta-Blockers (Beta-Adrenergic Blocking Agts), Black Pepper, Cat Dander, Horse Dander, Mushroom, Penicillins, Seasonal Allergies, and Tggtagb-Nro-Qtq Reductase Inhibitors PERSONAL HISTORY: Social History Tobacco Use (more content not included)... Normal [facility] [place] 01-05-2024 [place] Office Visit (APRILWS ) ----- BITA THOMPSON ([id number]) 1945 F Date Time Provider Department 01/05/24 11:20 AM ZARA GALLOWAY During your visit today, we recorded the following information about you: Pulse Respiration Blood pressure Weight 66/minute 18/minute 150/80 68 kg Zara Galloway APRN.CNP 01/05/2024 11:43 AM Signed 01/05/2024 Patient presents with: Cyst: Under right armpit SUBJECTIVE: This is a 78 year old that is here today for Above Complaints. Patient reports she has had a cyst to right arm pit for 20 years and at times it becomes inflamed. This AM woke up with discomfort and noted her cyst was enlarge. Denies fevers, chills, increasing redness, excessive warmth to area or drainage PAST MEDICAL HISTORY Diagnosis Date Essential hypertension History of ITP History of skin cancer Mixed hyperlipidemia CYNTHIA (obstructive sleep apnea) Stage 2 chronic kidney disease ALLERGIES Beef Containing Products, Beta-Blockers (Beta-Adrenergic Blocking Agts), Black Pepper, Cat Dander, Horse Dander, Mushroom, Penicillins, Seasonal Allergies, and Mcohuxc-Lot-Rnr Reductase Inhibitors MEDICATIONS Current Outpatient Medications Medication Sig Doxycycline Monohydrate 40 mg capsule folic acid 400 mcg tablet Folic Acid 400mg Active albuterol HFA 90 mcg/actuation HFA Inhale as instructed. lisinopril (ZESTRIL, PRINIVIL) 20 mg tablet Take 20 mg by mouth twice daily. fenofibrate nanocrystallized (TRICOR) 145 mg tablet Take 145 mg by mouth once daily. estradiol (ESTRACE) 0.01 % (0.1 mg/gram) vaginal cream famotidine (PEPCID) 20 mg tablet Take 20 mg by mouth twice daily. cholecalciferol, vitamin D3, (VITAMIN D3 ORAL) Take 400 mg by mouth. No current facility-administered medications for this visit. Medications and allergies reviewed by this provider. SOCIAL HISTORY Social History Tobacco Use Smoking status: Never Smokeless tobacco: Never Substance Use Topics Alcohol use: Not Currently Drug use: Never REVIEW OF SYSTEMS All other reviewed and negative other than HPI. OBJECTIVE: BP 150/80 Pulse 66 Resp 18 Wt 68 kg (149 lb 14.6 oz) BMI 24.95 kg/m? . Vital signs reviewed by this provider. APPEARANCE Well appearing, alert, in no acute distress, well-hydrated, well nourished. RIGHT AXILLA: approximate half dollar sized mass with mild erythema and some fluctuance. Mild TTP. No active drainage Hib Vaccine(1 of 1 - Risk 1-dose series) Never done Depression Screening Never done Anxiety Screening Never done Hepatitis C Screening Never done BP Controlled (<130/80) Never done DTaP,Tdap,Td Vaccine(1 - Tdap) Never done Bone Density Screening Never done Meningococcal B Vaccine: Consider Based On Risk(3 of 5 - Increased Risk Trumenba 3-dose series) due on 04/08/2018 Shingrix Vaccine(2 of 3) due on 08/29/2019 RSV Vaccine(1 - 1-dose 75+ series) Never done Meningococcal Conjugate Vaccine(3 - Risk 2-dose series) due on 06/14/2022 Advance Directive Discussion Never done Influenza Vaccine(1) due on 10/30/2023 Covid-19 Vaccine( - season) due on 10/30/2023 Annual PCP Team Chronic Disease Visit due on 01/02/2025 Serum Creatinine due on 01/02/2025 Hemoglobin/Hematocrit due on 01/02/2025 Diabetes Screening due on 01/02/2027 Pneumococcal Vaccine: 65+ Completed ASSESSMENT/PLAN: 1. Skin cyst - ICD9: 706.2, ICD10: L72.9 - appears to be inflamed - no red flag symptoms or exam findings - red flag symptoms discussed, verbalizes understanding - will have her see general surgery - CONSULT TO GENERAL SURGERY - CEPHALEXIN 500 MG CAPSULE- patient reports has taken before and did well with PCN allergy - follow-up if symptoms fail to improve to ER with red flag symptoms Zara Patellogteo, DEFENSE ANALYST.VP CLINICAL Prescription instructions reviewed with patient as applicable. Patient advised if symptoms do not improve or if symptoms worsen sooner, to contact their primary care physician. Potential red flag symptoms discussed with the patient. Reviewed appropriate action plan to take if red flag symptoms occur. Patient agreeable to treatment plan. Medical Decision Making: Problems: Moderate: New problem with uncertain prognosis Risk: Moderate: Drug management Medical Decision Making Level: 4 - Moderate Zara Galloway, TIFFANY.IVORY 01/05/2024 11:17 AM Signed Make appointment with general surgery Allergies As of Date: 01/05/2024 Noted Allergy Reaction BEEF CONTAINING PRODUCTS 05/13/2020 14 - Other: See Comments BETA-BLOCKERS (BETA-ADRENERGIC BL*12/05/2020 5 - Intolerance BLACK PEPPER 05/13/2020 16 - Unknown CAT DANDER 05/13/2020 14 - Other: See Comments HORSE DANDER 05/13/2020 14 - Other: See Comments MUSHROOM 05/13/2020 2 - Rash PENICILLINS 12/05/2020 4 - Hives SEASONAL ALLERGIES 05/13/2020 16 - Unknown [id number] REDUCTASE INHIBIT*12/05/2020 8 - GI Upset Date Reviewed: (more content not included)... Normal [facility] [place] 01-05-2024 [place] Telephone (FAMPWS) ----- BITA THOMPSON ([id number]) 1945 F Date Time Provider Department 01/05/24 ZARA GALLOWAY During your visit today, we recorded the following information about you: Dolores Mckee LPN 01/05/2024 8:32 AM Signed ----- Message from Zara Galloway APRN.VP CLINICAL sent at 01/05/2024 6:56 AM EST ----- A1c in is prediabetic range. Work on lower carbohydrate diet and aim for at least 150 minutes of exercise per week. Zara Galloway APRN.Dolores Chandra LPN 01/05/2024 8:33 AM Signed Left a message for pt to call the office and ask to speak to a nurse. DON Carrillo Laurie Lynn, LPN 01/05/2024 9:51 AM Signed Spoke with pt and information listed below given. Pt verbalizes understanding. Dolores Mckee LPN Allergies As of Date: 01/05/2024 Noted Allergy Reaction BEEF CONTAINING PRODUCTS 05/13/2020 14 - Other: See Comments BETA-BLOCKERS (BETA-ADRENERGIC BL*12/05/2020 5 - Intolerance BLACK PEPPER 05/13/2020 16 - Unknown CAT DANDER 05/13/2020 14 - Other: See Comments HORSE DANDER 05/13/2020 14 - Other: See Comments MUSHROOM 05/13/2020 2 - Rash PENICILLINS 12/05/2020 4 - Hives SEASONAL ALLERGIES 05/13/2020 16 - Unknown [id number] REDUCTASE INHIBIT*12/05/2020 8 - GI Upset Date Reviewed: 01/03/2024 Reviewed by: Guicho Wei, RT(R) - Fully Assessed Reason for Visit: Future Appointment [256] Prescriptions as of 01/05/2024 - Doxycycline Monohydrate 40 mg capsule - folic acid 400 mcg tablet Folic Acid 400mg Active - albuterol HFA 90 mcg/actuation HFA Inhale as instructed. - lisinopril (ZESTRIL, PRINIVIL) 20 mg tablet Take 20 mg by mouth twice daily. - fenofibrate nanocrystallized (TRICOR) 145 mg tablet Take 145 mg by mouth once daily. - estradiol (ESTRACE) 0.01 % (0.1 mg/gram) vaginal cream - famotidine (PEPCID) 20 mg tablet Take 20 mg by mouth twice daily. - cholecalciferol, vitamin D3, (VITAMIN D3 ORAL) Take 400 mg by mouth. Problem List As Of Date 01/05/2024 Noted Resolved History of ITP [Z86.2] CYNTHIA (obstructive sleep apnea) [G47.33] Mixed hyperlipidemia [E78.2] Essential hypertension [I10] Stage 2 chronic kidney disease [N18.2] History of skin cancer [Z85.828] Abnormal colonoscopy [R93.3] 05/13/2020 Essential tremor [G25.0] 05/13/2020 Vitamin D deficiency [E55.9] 05/13/2020 Gastroesophageal reflux disease [K21.9] 05/13/2020 Encounter Status:Closed by DOLORES MCKEE [facility]05[facility] [place] [facility] ([place] ----- BITA THOMPSON ([id number]) 1945 F Date Time Provider Department 01/04/24 ZARA GALLOWAY During your visit today, we recorded the following information about you: Zara Galloway APRN.VP CLINICAL 01/04/2024 8:02 AM Signed No acute findings in CT. Blood sugar was elevate, however if she was not fasting likely the reason. Will place order for A1c- please see if lab can add this on otherwise she will need to come back and complete this. Kidney function is decreased, however I have nothing to compare this to- recommend low salt diet, staying well hydrated with water and avoid NSAID products. The rest of her blood work was normal. Zara PatellogTIFFANY bruce.Patricia Carlson LPN 01/04/2024 9:33 AM Signed Phoned patient and updated her with results. Advised her the lab will be adding an A1C onto her blood work and we will update her with those results once available. She voiced understanding and reported she will cut back on NSAIDs as she had been using them since she fractured her knee. Patricia Kaye LPN PodlogarZara APRN.CNP 01/04/2024 9:41 AM Signed Reviewed. Zara PatellogESTER bruce Allergies As of Date: 01/04/2024 Noted Allergy Reaction BEEF CONTAINING PRODUCTS 05/13/2020 14 - Other: See Comments BETA-BLOCKERS (BETA-ADRENERGIC BL*12/05/2020 5 - Intolerance BLACK PEPPER 05/13/2020 16 - Unknown CAT DANDER 05/13/2020 14 - Other: See Comments HORSE DANDER 05/13/2020 14 - Other: See Comments MUSHROOM 05/13/2020 2 - Rash PENICILLINS 12/05/2020 4 - Hives SEASONAL ALLERGIES 05/13/2020 16 - Unknown [id number]-[id number] REDUCTASE INHIBIT*12/05/2020 8 - GI Upset Date Reviewed: 01/03/2024 Reviewed by: Guicho Wei, RT(R) - Fully Assessed Reason for Visit: Results [95] Primary Visit Diagnosis:Elevated blood sugar [R73.9] Order(s):HEMOGLOBIN A1C [WSYFJ8T] Order #: [id number] FUTURE Prescriptions as of 01/05/2024 - Doxycycline Monohydrate 40 mg capsule - folic acid 400 mcg tablet Folic Acid 400mg Active - albuterol HFA 90 mcg/actuation HFA Inhale as instructed. - lisinopril (ZESTRIL, PRINIVIL) 20 mg tablet Take 20 mg by mouth twice daily. - fenofibrate nanocrystallized (TRICOR) 145 mg tablet Take 145 mg by mouth once daily. - estradiol (ESTRACE) 0.01 % (0.1 mg/gram) vaginal cream - famotidine (PEPCID) 20 mg tablet Take 20 mg by mouth twice daily. - cholecalciferol, vitamin D3, (VITAMIN D3 ORAL) Take 400 mg by mouth. Problem List As Of Date 01/04/2024 Noted Resolved History of ITP [Z86.2] CYNTHIA (obstructive sleep apnea) [G47.33] Mixed hyperlipidemia [E78.2] Essential hypertension [I10] Stage 2 chronic kidney disease [N18.2] History of skin cancer [Z85.828] Abnormal colonoscopy [R93.3] 05/13/2020 Essential tremor [G25.0] 05/13/2020 Vitamin D deficiency [E55.9] 05/13/2020 Gastroesophageal reflux disease [K21.9] 05/13/2020 Encounter Status:Closed by DOLORES MCKEE on 01/05/24 Normal [facility] HbA1c (Bld)on 01-04-2024 Average glucose Estimated from glycated hemoglobin (Bld) [Mass/Vol] 120 mg/dL [facility] Comment on above: eAG: (Estimated aver age glucose) is a calculated value from HgbA1c and is veterans employment representative of the average blood glucose level in the last 2-3 month period. HbA1c (Bld) [Mass fraction] 5.8 % High 4.3 - 5.6 % [facility] Comment on above: [place] Diabetes As sociation guidelines indicate that patients with HgbA1c in the range 5.7-6.4% are at increased risk for development of diabetes, and intervention by lifestyle modification may be beneficial. HgbA1c greater or equal to 6.5% is considered diagnostic of diabetes. Interpretation and review of laboratory results Abnormal [facility] CBC W Auto Differential pane l (Bld)on 01-03-2024 Basophils (Bld) [#/Vol] NINF [facility] Basophils/100 WBC (Bld) 0.3 % [facility] Differential cell count method Nom (Bld) Auto [facility] Eosinophils (Bld) [#/Vol] 0.24 10*3/uL [facility] Eosinophils/100 WBC (Bld) 3.1 % [facility] Erythrocyte distribution width (RBC) [Ratio] 14.9 % 11.5 - 15.0 % [facility] Hematocrit (Bld) [Volume fraction] 40.1 % 36.0 - 46.0 % [facility] Hemoglobin (Bld) [Mass/Vol] 13.1 g/dL 11.5 - 15.5 g/dL [facility] Immature granulocytes (Bld) [#/Vol] 0.04 10*3/uL [facility] Immature granulocytes/100 WBC (Bld) 0.5 % [facility] Lymphocytes (Bld) [#/Vol] 1.99 10*3/uL [facility] Lymphocytes/100 WBC (Bld) 25.6 % [facility] MCH (RBC) [Entitic mass] 30.5 pg 26.0 - 34.0 pg [facility] MCHC (RBC) [Mass/Vol] 32.7 g/dL 30.5 - 36.0 g/dL [facility] MCV (RBC) [Entitic vol] 93.3 fL 80.0 - 100.0 fL [facility] Monocytes (Bld) [#/Vol] 0.70 10*3/uL [facility] Monocytes/100 WBC (Bld) 9.0 % [facility] Neutrophils (Bld) [#/Vol] 4.77 10*3/uL [facility] Neutrophils/100 WBC (Bld) 61.5 % [facility] Nucleated RBC (Bld) [#/Vol] [facility] Nucleated RBC/100 WBC (Bld) [Ratio] 0.0 % /100 WBC [facility] Platelet mean volume (Bld) [Entitic vol] 12.3 fL 9.0 - 12.7 fL [facility] Platelets (Bld) [#/Vol] 279 10*3/uL [facility] RBC (Bld) [#/Vol] 4.30 10*6/uL 3.90 - 5.20 m/uL [facility] WBC (Bld) [#/Vol] 7.76 10*3/uL [facility] Basophils (Bld) [#/Vol] 10*3/uL Normal <0.11 [facility] Comment on above: Order Comment: Speci men Type: BLOOD SPECIMENOrdering Facility: [facility] Address: [address] [place], [place] [address] Performed By: #### 5 7021-8 ####[facility] [id number] [place] [address] [place] Basophils/100 WBC (Bld) 0.3 % Normal [facility] Comment on above: Order Comment: Speci men Type: BLOOD SPECIMENOrdering Facility: [facility] Address: [address] [place] [address] Performed By: #### 5 7021-8 ####[facility]MARY[facility]UL[facility] [id number] [place] [address] [place] Differential cell count method Nom (Bld) Auto Normal [facility] Comment on above: Order Comment: Speci men Type: BLOOD SPECIMENOrdering Facility: [facility] Address: [address] [place] [address] Performed By: #### 5 7021-8 ####[facility] [id number] [place] [address] [place] Eosinophils (Bld) [#/Vol] 0.24 10*3/uL Normal <0.46 [facility] Comment on above: Order Comment: Speci men Type: BLOOD SPECIMENOrdering Facility: [facility] Address: [address] [place] [address] Performed By: #### 5 7021-8 ####[facility] [id number] [place] [address] [place] Eosinophils/100 WBC (Bld) 3.1 % Normal [facility] Comment on above: Order Comment: Speci men Type: BLOOD SPECIMENOrdering Facility: [facility] Address: [address] [place] [address] Performed By: #### 5 7021-8 ####[facility] [id number] [place] [address] [place] Erythrocyte distribution width (RBC) [Ratio] 14.9 % Normal 11.5-15.0 [facility] Comment on above: Order Comment: Speci men Type: BLOOD SPECIMENOrdering Facility: [facility] Address: [address] [place] [address] Performed By: #### 5 7021-8 ####[facility]JA[facility]IR[facility] [id number] [place] [address] [place] OF [place] Hematocrit (Bld) [Volume fraction] 40.1 % Normal 36.0-46.0 [facility] Comment on above: Order Comment: Speci men Type: BLOOD SPECIMENOrdering Facility: [facility] Address: [address] [place] [address] Performed By: #### 5 7021-8 ####[facility]PITALNCSALT [facility] [id number] [place] [address] [place] Hemoglobin (Bld) [Mass/Vol] 13.1 g/dL Normal 11.5-15.5 [facility] Comment on above: Order Comment: Speci men Type: BLOOD SPECIMENOrdering Facility: [facility] Address: [address] [place] [address] Performed By: #### 5 7021-8 ####[facility] [id number] [place] [address] [place] Immature granulocytes (Bld) [#/Vol] 0.04 10*3/uL Normal <0.10 [facility] Comment on above: Order Comment: Speci men Type: BLOOD SPECIMENOrdering Facility: [facility] Address: [address] [place] [address] Performed By: #### 5 7021-8 ####[facility] HOSPITALNCLIA [id number] [place] [address] [place] Immature granulocytes/100 WBC (Bld) 0.5 % Normal [facility] Comment on above: Order Comment: Speci men Type: BLOOD SPECIMENOrdering Facility: [facility] Address: [address] [place] [address] Performed By: #### 5 7021-8 ####[facility] MILLWNCLIA [id number] [place] [address] [place] Lymphocytes (Bld) [#/Vol] 1.99 10*3/uL Normal 1.00-4.00 [facility] Comment on above: Order Comment: Speci men Type: BLOOD SPECIMENOrdering Facility: [facility] Address: [address] [place] [address] Performed By: #### 5 7021-8 ####[facility] [id number] [place] [address] [place] Lymphocytes/100 WBC (Bld) 25.6 % Normal [facility] Comment on above: Order Comment: Speci men Type: BLOOD SPECIMENOrdering Facility: [facility] Address: [address] [place] [address] Performed By: #### 5 7021-8 ####[facility] [id number] [place] [address] [place] MCH (RBC) [Entitic mass] 30.5 pg Normal 26.0-34.0 [facility] Comment on above: Order Comment: Speci men Type: BLOOD SPECIMENOrdering Facility: [facility] Address: [address] [place] [address] Performed By: #### 5 7021-8 ####[facility]OS[facility]ITALLIA [id number] [place] [address] [place] MCHC (RBC) [Mass/Vol] 32.7 g/dL Normal 30.5-36.0 [facility] Comment on above: Order Comment: Speci men Type: BLOOD SPECIMENOrdering Facility: [facility] Address: [address] [place] [address] Performed By: #### 5 7021-8 ####[facility] HOSPITALNCLI [id number] [place] [address] [place] MCV (RBC) [Entitic vol] 93.3 fL Normal 80.0-100.0 [facility] Comment on above: Order Comment: Speci men Type: BLOOD SPECIMENOrdering Facility: [facility] Address: [address] [place] [address] Performed By: #### 5 7021-8 ####[facility] [id number] [place] [address] [place] Monocytes (Bld) [#/Vol] 0.70 10*3/uL Normal <0.87 [facility] Comment on above: Order Comment: Speci men Type: BLOOD SPECIMENOrdering Facility: [facility] Address: [address] [place] [address] Performed By: #### 5 7021-8 ####[facility] [id number] [place] [address] [place] Monocytes/100 WBC (Bld) 9.0 % Normal [facility] Comment on above: Order Comment: Speci men Type: BLOOD SPECIMENOrdering Facility: [facility] Address: [address] [place] [address] Performed By: #### 5 7021-8 ####[facility] [id number] [place] [address] [place] Neutrophils (Bld) [#/Vol] 4.77 10*3/uL Normal 1.45-7.50 [facility] Comment on above: Order Comment: Speci men Type: BLOOD SPECIMENOrdering Facility: [facility] Address: [address] [place] [address] Performed By: #### 5 7021-8 ####[facility] HOSPITALNCSALT [facility] [id number] [place] [address] [place] Neutrophils/100 WBC (Bld) 61.5 % Normal [facility] Comment on above: Order Comment: Speci men Type: BLOOD SPECIMENOrdering Facility: [facility] Address: [address] [place] [address] Performed By: #### 5 7021-8 ####[facility]OSPITALMARYLUSALT LAKE REG[facility] [id number] [place] [address] [place] Nucleated RBC (Bld) [#/Vol] 10*3/uL Normal <0.01 [facility] Comment on above: Order Comment: Speci men Type: BLOOD SPECIMENOrdering Facility: [facility] Address: [address] [place] [address] Performed By: #### 5 7021-8 ####[facility] HOSPITALNCSALT [facility] [id number] [place] [address] [place] Nucleated RBC/100 WBC (Bld) [Ratio] 0.0 /100 WBC Normal [facility] Comment on above: Order Comment: Speci men Type: BLOOD SPECIMENOrdering Facility: [facility] Address: [address] [place] [address] Performed By: #### 5 7021-8 ####[facility] [id number] [place] [address] [place] Platelet mean volume (Bld) [Entitic vol] 12.3 fL Normal 9.0-12.7 [facility] Comment on above: Order Comment: Speci men Type: BLOOD SPECIMENOrdering Facility: [facility] Address: [address] [place] [address] Performed By: #### 5 7021-8 ####[facility] HOSPITALNCLI [id number] [place] [address] [place] Platelets (Bld) [#/Vol] 279 10*3/uL Normal 150-400 [facility] Comment on above: Order Comment: Speci men Type: BLOOD SPECIMENOrdering Facility: [facility] Address: [address] [place] [address] Performed By: #### 5 7021-8 ####[facility] MEDICAL CENTERWNCLIA [id number] [place] [address] [place] RBC (Bld) [#/Vol] 4.30 10*6/uL Normal 3.90-5.20 [facility] Comment on above: Order Comment: Speci men Type: BLOOD SPECIMENOrdering Facility: [facility] Address: [address] [place] [address] Performed By: #### 5 7021-8 ####[facility] HOSPITALNCLIA [id number] [place] [address] [place] WBC (Bld) [#/Vol] 7.76 10*3/uL Normal 3.70-11.00 [facility] Comment on above: Order Comment: Speci men Type: BLOOD SPECIMENOrdering Facility: [facility] Address: [address] [place] [address] Performed By: #### 5 7021-8 ####[facility] HOSPITALNCLIA [id number] [place] [address] [place] Janis 01-03-2024 [facility] Office Visit (ROM ) ----- BITA THOMPSON ([id number]) 1945 F Date Time Provider Department 01/03/24 9:40 AM ZARA GALLOWAY During your visit today, we recorded the following information about you: Temperature Pulse Respiration Weight 98.6 degrees 71/minute 18/minute 69.4 kg Zara Galloway APRN.CNP 01/03/2024 10:32 AM Signed 01/03/2024 Patient presents with: Abdominal Pain: Constipation, patient believes pain could also be from stress SUBJECTIVE: This is a 78 year old that is here today for Above Complaints. Patient is new patient to me. ONSET: 2-3 weeks LOCATION: LLQ and LUQ DURATION: intermittent CHARACTERISTICS: sometimes sharp, feels like a bag of air AGGRAVATING FEATURES: eating ALLEVIATING FEATURES: tylenol with mild relief RADIATION: none Admits to constipation and a one time episode of diarrhea. Last BM was today Denies weight loss, fevers, chills, nausea, vomiting, melana, or hematochezia Reports hx of pancreatitis and gallstones for which she had a cholecystectomy. Otherwise not other abdominal surgeries. She reports she has had diverticulitis in the past PAST MEDICAL HISTORY Diagnosis Date Essential hypertension History of ITP History of skin cancer Mixed hyperlipidemia CYNTHIA (obstructive sleep apnea) Stage 2 chronic kidney disease ALLERGIES Beef Containing Products, Beta-Blockers (Beta-Adrenergic Blocking Agts), Black Pepper, Cat Dander, Horse Dander, Mushroom, Penicillins, Seasonal Allergies, and Scergzc-Jrd-Yem Reductase Inhibitors MEDICATIONS Current Outpatient Medications Medication Sig Doxycycline Monohydrate 40 mg capsule folic acid 400 mcg tablet Folic Acid 400mg Active albuterol HFA 90 mcg/actuation HFA Inhale as instructed. lisinopril (ZESTRIL, PRINIVIL) 20 mg tablet Take 20 mg by mouth twice daily. fenofibrate nanocrystallized (TRICOR) 145 mg tablet Take 145 mg by mouth once daily. estradiol (ESTRACE) 0.01 % (0.1 mg/gram) vaginal cream famotidine (PEPCID) 20 mg tablet Take 20 mg by mouth twice daily. cholecalciferol, vitamin D3, (VITAMIN D3 ORAL) Take 400 mg by mouth. No current facility-administered medications for this visit. Medications and allergies reviewed by this provider. SOCIAL HISTORY Social History Tobacco Use Smoking status: Never Smokeless tobacco: Never Substance Use Topics Alcohol use: Not Currently Drug use: Never REVIEW OF SYSTEMS All other reviewed and negative other than HPI. OBJECTIVE: Pulse 71 Temp 37 ?C (98.6 ?F) Resp 18 Wt 69.4 kg (153 lb) SpO2 95% BMI 25.46 kg/m? . Vital signs reviewed by this provider. APPEARANCE Well appearing, alert, in no acute distress, well-hydrated, well nourished. EYES PERRLA, conjunctiva and sclera normal. HEART RRR with normal S1 and S2, no murmurs, no gallops, no JVD appreciated LUNG clear to auscultation ABDOMEN bowel sounds hyperactive in all 4 quads. Softly distended. TTP LLQ without rebound tenderness. No guarding SKIN Skin color, texture, turgor normal, no suspicious rashes or lesions to exposed skin Hib Vaccine(1 of 1 - Risk 1-dose series) Never done Annual PCP Team Chronic Disease Visit Never done Depression Screening Never done Anxiety Screening Never done Hepatitis C Screening Never done Serum Creatinine Never done BP Controlled (<130/80) Never done DTaP,Tdap,Td Vaccine(1 - Tdap) Never done Diabetes Screening Never done Bone Density Screening Never done Meningococcal B Vaccine: Consider Based On Risk(3 of 5 - Increased Risk Trumenba 3-dose series) due on 04/08/2018 Shingrix Vaccine(2 of 3) due on 08/29/2019 RSV Vaccine(1 - 1-dose 75+ series) Never done Meningococcal Conjugate Vaccine(3 - Risk 2-dose series) due on 06/14/2022 Advance Directive Discussion Never done Influenza Vaccine(1) due on 10/30/2023 Covid-19 Vaccine( season) due on 10/30/2023 Pneumococcal Vaccine: 65+ Completed ASSESSMENT/PLAN: 1. Left lower quadrant abdominal pain - ICD9: 789.04, ICD10: R10.32 (primary diagnosis) - consider diverticulitis vs constipation vs unknown - no red flag symptoms or exam findings - red flag symptoms discussed, verbalize understanding - CT ABD/PEL W IVCON - IV CONTRAST (RADIOLOGY PROCEDURE) - ENTERIC CONTRAST (RADIOLOGY PROCEDURE) - COMPLETE BLOOD COUNT AND DIFFERENTIAL - COMPREHENSIVE METABOLIC PANEL - SEDIMENTATION RATE, WESTERGREN - C-REACTIVE PROTEIN - bland diet at this time - follow-up pending testing to ER with red flag symptoms 2. LUQ pain - ICD9: 789.02, ICD10: R10.12 - consider pancreatitis vs constipation - LIPASE - SEDIMENTATION RATE, WESTERGREN - C-REACTIVE PROTEIN - plan as in #1 as well Zara Patellogar, DEFENSE ANALYST.VP CLINICAL Prescription instructions reviewed with patient as applicable. Patient advised if symptoms do not improve or if symptoms worsen sooner, to contact their primary care physician. Po (more content not included)... Normal [facility] CRP SerPl-mCncon 01-03-2024 CRP [Mass/Vol] 0.6 mg/dL Normal <0.9 [facility] Comment on above: Order Comment: Speci men Type: BLOOD SPECIMENOrdering Facility: [facility] Address: [address] [place] [address] Performed By: #### 3 040-3, 1987- ####[facility] LABCLIA [id number] [facility] MINNE[facility]OLISPito CHRISTYDESK [id number] [place] CT ABD/PEL W IVCONon 024 CT ABD/PEL W IVCON * * *Final Report* * * DATE OF EXAM: Jan 03 2024 3:20PM [facility] - CT ABD/PEL W IVCON / PROCEDURE REASON: Left lower quadrant abdominal pain * * * * Physician Interpretation * * * * EXAMINATION: CT ABDOMEN AND PELVIS WITH IV CONTRAST CLINICAL HISTORY: Left lower quadrant pain TECHNIQUE: CT of the abdomen and pelvis was performed using standard technique, scanning from just above the dome of the diaphragm to the symphysis pubis. MQ: CTAP_3 Contrast: IV: 100 ml of Omnipaque 350 CT Radiation dose: Integrated Dose-length product (DLP) for this visit = 525 mGy*cm. CT Dose Reduction Employed: Automated exposure control(AEC) and iterative recon COMPARISON: None. RESULT: Liver: No mass. Biliary: Prior cholecystectomy. Spleen: Atrophic spleen versus splenule in the left upper quadrant measuring up to approximately 2.5 cm in size. No splenomegaly. Pancreas: No mass or duct dilation. Adrenals: No mass. Kidneys: Symmetric nephrograms with no evidence of hydronephrosis. Few bilateral renal cysts with the largest seen in the left kidney measuring up to 1.7 cm in size. A few additional subcentimeter hypodense too small to characterize renal lesions. GI tract: Miniscule hiatal hernia. No dilation or wall thickening. Colonic diverticulosis without CT evidence of complications. Normal appendix. Lymph nodes: No abdominal or pelvic lymphadenopathy. Mesentery/Peritoneum: No ascites or mass. Retroperitoneum: No mass. Vasculature: Atherosclerotic calcification of the vasculature. Pelvis: Evaluation degraded by streak artifact from left hip prosthesis. No gross mass, ascites or fluid collection. Bones/Soft Tissues: Left hip prosthesis. Postsurgical changes from fusion of L4-S1. Degenerative changes in the spine. Sclerotic densities in the medial left ilium. No cortical destruction or periostitis. Mild right hip osteoarthritis. Lower thorax: Dependent atelectatic changes. Localizer images: No additional findings. IMPRESSION: 1. No CT evidence of acute abnormality in the abdomen or pelvis. 2. Incidental findings as described. Licensed Club Manager: [facility] Transcribe Date/Time: Jan 03 2024 3:22P Dictated by : RUTH KIM MD This examination was interpreted and the report reviewed and electronically signed by: RUTH KIM MD on Jan 03 2024 3:33PM EST [id number] Normal [facility] CT Abdomen and Pelvis W cont rast Farnaz 01-03-2024 IMPRESSION: 1. No CT evidence of acute abnormality in the abdomen or pelvis. 2. Incidental findings as described. Licensed Club Manager: [facility] Transcribe Date/Time: Jan 03 2024 3:22P Dictated by : RUTH KIM MD This examination was interpreted and the report reviewed and electronically signed by: RUTH KIM MD on Jan 03 2024 3:33PM [facility] DIVISION OF RADIOLOGY * * *Final Report* * * DATE OF EXAM: Jan 03 2024 3:20PM [facility] 0530 - CT ABD/PEL W IVCON / PROCEDURE REASON: Left lower quadrant abdominal pain * * * * Physician Interpretation * * * * EXAMINATION: CT ABDOMEN AND PELVIS WITH IV CONTRAST CLINICAL HISTORY: Left lower quadrant pain TECHNIQUE: CT of the abdomen and pelvis was performed using standard technique, scanning from just above the dome of the diaphragm to the symphysis pubis. MQ: CTAP_3 Contrast: IV: 100 ml of Omnipaque 350 CT Radiation dose: Integrated Dose-length product (DLP) for this visit = 525 mGy*cm. CT Dose Reduction Employed: Automated exposure control(AEC) and iterative recon COMPARISON: None. RESULT: Liver: No mass. Biliary: Prior cholecystectomy. Spleen: Atrophic spleen versus splenule in the left upper quadrant measuring up to approximately 2.5 cm in size. No splenomegaly. Pancreas: No mass or duct dilation. Adrenals: No mass. Kidneys: Symmetric nephrograms with no evidence of hydronephrosis. Few bilateral renal cysts with the largest seen in the left kidney measuring up to 1.7 cm in size. A few additional subcentimeter hypodense too small to characterize renal lesions. GI tract: Miniscule hiatal hernia. No dilation or wall thickening. Colonic diverticulosis without CT evidence of complications. Normal appendix. Lymph nodes: No abdominal or pelvic lymphadenopathy. Mesentery/Peritoneum: No ascites or mass. Retroperitoneum: No mass. Vasculature: Atherosclerotic calcification of the vasculature. Pelvis: Evaluation degraded by streak artifact from left hip prosthesis. No gross mass, ascites or fluid collection. Bones/Soft Tissues: Left hip prosthesis. Postsurgical changes from fusion of L4-S1. Degenerative changes in the spine. Sclerotic densities in the medial left ilium. No cortical destruction or periostitis. Mild right hip osteoarthritis. Lower thorax: Dependent atelectatic changes. Localizer images: No additional findings. DIVISION OF RADIOLOGY Provider, [facility] - 01/03/2024 * * *Final Report* * * DATE OF EXAM: Jan 03 2024 3:20PM [facility] 0530 - CT ABD/PEL W IVCON / PROCEDURE REASON: Left lower quadrant abdominal pain * * * * Physician Interpretation * * * * EXAMINATION: CT ABDOMEN AND PELVIS WITH IV CONTRAST CLINICAL HISTORY: Left lower quadrant pain TECHNIQUE: CT of the abdomen and pelvis was performed using standard technique, scanning from just above the dome of the diaphragm to the symphysis pubis. MQ: CTAP_3 Contrast: IV: 100 ml of Omnipaque 350 CT Radiation dose: Integrated Dose-length product (DLP) for this visit = 525 mGy*cm. CT Dose Reduction Employed: Automated exposure control(AEC) and iterative recon COMPARISON: None. RESULT: Liver: No mass. Biliary: Prior cholecystectomy. Spleen: Atrophic spleen versus splenule in the left upper quadrant measuring up to approximately 2.5 cm in size. No splenomegaly. Pancreas: No mass or duct dilation. Adrenals: No mass. Kidneys: Symmetric nephrograms with no evidence of hydronephrosis. Few bilateral renal cysts with the largest seen in the left kidney measuring up to 1.7 cm in size. A few additional subcentimeter hypodense too small to characterize renal lesions. GI tract: Miniscule hiatal hernia. No dilation or wall thickening. Colonic diverticulosis without CT evidence of complications. Normal appendix. Lymph nodes: No abdominal or pelvic lymphadenopathy. Mesentery/Peritoneum: No ascites or mass. Retroperitoneum: No mass. Vasculature: Atherosclerotic calcification of the vasculature. Pelvis: Evaluation degraded by streak artifact from left hip prosthesis. No gross mass, ascites or fluid collection. Bones/Soft Tissues: Left hip prosthesis. Postsurgical changes from fusion of L4-S1. Degenerative changes in the spine. Sclerotic densities in the medial left ilium. No cortical destruction or periostitis. Mild right hip osteoarthritis. Lower thorax: Dependent atelectatic changes. Localizer images: No additional findings. IMPRESSION IMPRESSION: 1. No CT evidence of acute abnormality in the abdomen or pelvis. 2. Incidental findings as described. Licensed Club Manager: [facility] Transcribe Date/Time: Jan 03 2024 3:22P Dictated by : RUTH KIM MD This examination was interpreted and the report reviewed and electronically signed by: RUTH KIM MD on Jan 03 2024 3:33PM EST [facility] Radiology Study observation (narrative) [facility] CT Abdomen and Pelvis W cont rast IVOrdered By: Ccf Provider on 01-03-2024 [facility] Comprehensive metabolic 2000 panelOrdered By: Glendy Sadler on 01-03-2024 Albumin [Mass/Vol] 4.1 g/dL 3.9 - 4.9 g/dL [facility] ALP [Catalytic activity/Vol] 45 U/L 34 - 123 U/L [facility] ALT [Catalytic activity/Vol] 12 U/L 7 - 38 U/L [facility] Anion gap [Moles/Vol] 11 mmol/L 8 - 15 mmol/L [facility] AST [Catalytic activity/Vol] 15 U/L 13 - 35 U/L [facility] Bilirubin [Mass/Vol] 0.4 mg/dL 0.2 - 1 .3 mg/dL [facility] Calcium [Mass/Vol] 9.8 mg/dL 8.5 - 10. 2 mg/dL [facility] Chloride [Moles/Vol] 104 mmol/L 98 - 10 7 mmol/L [facility] CO2 [Moles/Vol] 24 mmol/L 22 - 30 mmol/L [facility] Creatinine [Mass/Vol] 1.21 mg/dL High 0.58 - 0.96 mg/dL [facility] GFR/1.73 sq M.predicted among non-blacks MDRD (S/P/Bld) [Vol rate/Area] 46 mL/min/{1.73_m2} Low - PINF [facility] Comment on above: Estimated Glomerular Filtration Rate (eGFR) is calculated using the 2020 CKD-EPI creatinine equation. This equation utilizes serum creatinine, sex, and age as parameters. The creatinine assay has traceable calibration to isotope dilution-mass spectrometry. Refer to KDIGO guidelines for clinical interpretation. In patients with unstable renal function, e.g. those with acute kidney injury, the eGFR may not accurately reflect actual GFR. Glucose [Mass/Vol] 141 mg/dL High 74 - 99 mg/dL [facility] Comment on above: The [place] Diabete s Association (ADA) provides guidance for cutoff values for fasting glucose and random glucose. The ADA defines fasting as no caloric intake for at least 8 hours. Fasting plasma glucose results between 100 to 125 mg/dL indicate increased risk for diabetes (prediabetes). Fasting plasma glucose results greater than or equal to 126 mg/dL meet the criteria for diagnosis of diabetes. In the absence of unequivocal hyperglycemia, results should be confirmed by repeat testing. In a patient with classic symptoms of hyperglycemia or hyperglycemic crisis, random plasma glucose results greater than or equal to 200 mg/dL meet the criteria for diagnosis of diabetes. Reference: Standards of Medical Care in Diabetes 2016, [place] Diabetes Association. Diabetes Care. 2016.39(Suppl 1). Interpretation and review of laboratory results Abnormal [facility] Potassium [Moles/Vol] 4.3 mmol/L 3.7 - 5.1 mmol/L [facility] Protein [Mass/Vol] 7.1 g/dL 6.3 - 8.0 g/dL [facility] Sodium [Moles/Vol] 139 mmol/L 136 - 144 mmol/L [facility] Urea nitrogen [Mass/Vol] 26 mg/dL High 7 - 21 mg/dL [facility] Comprehensive metabolic 2000 panelon 01-03-2024 Albumin [Mass/Vol] 4.1 g/dL Normal 3.9-4.9 [facility] Comment on above: Order Comment: Speci men Type: BLOOD SPECIMENOrdering Facility: [facility] Address: [facility] [place] [address] Performed By: #### 2 4323-8 ####[facility] HIEN MILLTOWNCLIA [id number] [place] [address] [place] ALP [Catalytic activity/Vol] 45 U/L Normal 34-123 [facility] Comment on above: Order Comment: Speci men Type: BLOOD SPECIMENOrdering Facility: [facility] Address: [address] [place] [address] Performed By: #### 2 4323-8 ####[facility] MILLTOWNCLIA [id number] [place] [address] [place] ALT [Catalytic activity/Vol] 12 U/L Normal 7-38 [facility] Comment on above: Order Comment: Speci men Type: BLOOD SPECIMENOrdering Facility: [facility] Address: [address] [place] [address] Performed By: #### 2 4323-8 ####[facility] HOSPITALNCLIA [id number] [place] [address] [place] Anion gap [Moles/Vol] 11 mmol/L Normal 8-15 [facility] Comment on above: Order Comment: Speci men Type: BLOOD SPECIMENOrdering Facility: [facility] Address: [address] [place] [address] Performed By: #### 2 4323-8 ####[facility] MEDICAL CENTERWNCLIA [id number] [place] [address] [place] AST [Catalytic activity/Vol] 15 U/L Normal 13-35 [facility] Comment on above: Order Comment: Speci men Type: BLOOD SPECIMENOrdering Facility: [facility] Address: [address] [place] [address] Performed By: #### 2 4323-8 ####[facility] MEDICAL CENTERWNCLIA [id number] [place] [address] [place] Bilirubin [Mass/Vol] 0.4 mg/dL Normal 0.2-1.3 [facility] Comment on above: Order Comment: Speci men Type: BLOOD SPECIMENOrdering Facility: [facility] Address: [address] [place] [address] Performed By: #### 2 4323-8 ####[facility] MEDICAL CENTERWNCLIA [id number] [place] [address] [place] Calcium [Mass/Vol] 9.8 mg/dL Normal 8.5-10.2 [facility] Comment on above: Order Comment: Speci men Type: BLOOD SPECIMENOrdering Facility: [facility] Address: [address] [place] [address] Performed By: #### 2 4323-8 ####[facility] HOSPITALNCA [id number] [place] [address] [place] Chloride [Moles/Vol] 104 mmol/L Normal 98-107 [facility] Comment on above: Order Comment: Speci men Type: BLOOD SPECIMENOrdering Facility: [facility] Address: [address] [place] [address] Performed By: #### 2 4323-8 ####[facility]OS[facility]ITALA [id number] [place] [address] [place] CO2 [Moles/Vol] 24 mmol/L Normal 22-30 [facility] Comment on above: Order Comment: Speci men Type: BLOOD SPECIMENOrdering Facility: [facility] Address: [address] [address] Performed By: #### 2 4323-8 ####[facility] HOSPITALNCA [id number] [place] [address] [place] Creatinine [Mass/Vol] 1.21 mg/dL High 0.58-0.96 [facility] Comment on above: Order Comment: Speci men Type: BLOOD SPECIMENOrdering Facility: [facility] Address: [address] [place] [address] Performed By: #### 2 4323-8 ####[facility] MED[facility] CENTERWNCLIA [id number] [place] [address] [place] Creatinine and Glomerular filtration rate.predicted panel (S/P/Bld) 46 mL/min/1.73m??? Low >=60 [facility] Comment on above: Order Comment: Sis barber Type: BLOOD SPECIMENOrdering Facility: [facility] Address: [address] [place] [address] Result Comment: Luiza mated Glomerular Filtration Rate (eGFR) is calculated using the 2020 CKD-EPI creatinine equation. This equation utilizes serum creatinine, sex, and age as parameters. The creatinine assay has traceable calibration to isotope dilution-mass spectrometry. Refer to KDIGO guidelines for clinical interpretation. In patients with unstable renal function, e.g. those with acute kidney injury, the eGFR may not accurately reflect actual GFR. Performed By: #### 2 4323-8 ####[facility] [id number] [place] [address] [place] Glucose [Mass/Vol] 141 mg/dL High 74-99 [facility] Comment on above: Order Comment: Sis barber Type: BLOOD SPECIMENOrdering Facility: [facility] Address: [address] [place] [address] Result Comment: The [place] Diabetes Association (ADA) provides guidance for cutoff values for fasting glucose and random glucose. The ADA defines fasting as no caloric intake for at least 8 hours. Fasting plasma glucose results between 100 to 125 mg/dL indicate increased risk for diabetes (prediabetes). Fasting plasma glucose results greater than or equal to 126 mg/dL meet the criteria for diagnosis of diabetes. In the absence of unequivocal hyperglycemia, results should be confirmed by repeat testing. In a patient with classic symptoms of hyperglycemia or hyperglycemic crisis, random plasma glucose results greater than or equal to 200 mg/dL meet the criteria for diagnosis of diabetes. Reference: Standards of Medical Care in Diabetes 2016, [place] Diabetes Association. Diabetes Care. 2016.39(Suppl 1). Performed By: #### 2 4323-8 ####[facility] HOSPITALA [id number] [place] [address] [place] Potassium [Moles/Vol] 4.3 mmol/L Normal 3.7-5.1 [facility] Comment on above: Order Comment: Speci men Type: BLOOD SPECIMENOrdering Facility: [facility] Address: [address] [place] [address] Performed By: #### 2 4323-8 ####[facility]ICAL CENTERWMARYLULIA [id number] [place] [address] [place] Protein [Mass/Vol] 7.1 g/dL Normal 6.3-8.0 [facility] Comment on above: Order Comment: Speci men Type: BLOOD SPECIMENOrdering Facility: [facility] Address: [address] [place] [address] Performed By: #### 2 4323-8 ####[facility]OS[facility]ITALA [id number] [place] [address] [place] Sodium [Moles/Vol] 139 mmol/L Normal 136-144 [facility] Comment on above: Order Comment: Speci men Type: BLOOD SPECIMENOrdering Facility: [facility] Address: [address] [place] [address] Performed By: #### 2 4323-8 ####[facility] HOSPITALMARYLULIA [id number] [place] [address] [place] Urea nitrogen [Mass/Vol] 26 mg/dL High 7-21 [facility] Comment on above: Order Comment: Speci men Type: BLOOD SPECIMENOrdering Facility: [facility] Address: [address] [place] [address] Performed By: #### 2 4323-8 ####[facility] HOSPITALNCLIA [id number] [place] [address] [place] ESR Westergren method (Bld) [Velocity]on 01-03-2024 ESR (Bld) [Velocity] 10 mm/h [facility] Interpretation and review of laboratory results Normal [facility] ESR (Bld) [Velocity] 10 mm/h Normal 0-20 [facility] Comment on above: Order Comment: Sis barber Type: BLOOD SPECIMENOrdering Facility: [facility] Address: [address] [place] [address] Performed By: #### 4 537-7 ####[facility] LABCLIA [id number] [place] [address] [place] HbA1c (Bld)on 01-03-2024 Average glucose Estimated from glycated hemoglobin (Bld) [Mass/Vol] 120 mg/dL Normal [facility] Comment on above: Order Comment: Sis barber Type: BLOOD SPECIMENOrdering Facility: [facility] Address: [address] [place] [address] Result Comment: eAG: (Estimated average glucose) is a calculated value from HgbA1c and is veterans employment representative of the average blood glucose level in the last 2-3 month period. Performed By: #### 5 5454-3 ####[facility] LABCLIA [id number] [place] [address] [place] HbA1c (Bld) [Mass fraction] 5.8 % High 4.3-5.6 [facility] Comment on above: Order Comment: Rosiei sunil Type: BLOOD SPECIMENOrdering Facility: [facility] Address: [address] [place] [address] Result Comment: [place] Diabetes Association guidelines indicate that patients with HgbA1c in the range 5.7-6.4% are at increased risk for development of diabetes, and intervention by lifestyle modification may be beneficial. HgbA1c greater or equal to 6.5% is considered diagnostic of diabetes. Performed By: #### 5 5454-3 ####[facility] LABCLIA [id number] [place] [address] [place] Lipase SerPl-cCncon 01-03-20 24 Lipase [Catalytic activity/Vol] 57 U/L Normal 16-61 [facility] Comment on above: Order Comment: Speci men Type: BLOOD SPECIMENOrdering Facility: [facility] Address: [address] [place] [address] Performed By: #### 3 040-3, 1987-06 ####[facility] LABCLIA [id number] [address] [place] [address] [place] Basophil percentageOrdered B y: Jaclyn Siddiqui on 04-20-2023 Bilirubin [Mass/Vol] 0.50 mg/dL 0.20-1.00 [facility] Comment on above: For patients on eltr ombopag therapy, use of Dimension Porter TBIL is not recommended. Cholesterol [Mass/Vol] 164 mg/dL <200 [facility] Comment on above: <200 mg/dL Desirable 200-240 mg/dL Borderline >240 mg/dL High Risk Protein [Mass/Vol] 7.5 g/dL 6.4-8.2 [facility] Triglyceride [Mass/Vol] 106 mg/dL <199 [facility] Comment on above: The drugs N-Acetylcy steine and Metamizole may falsely depress this assay.Serum Triglycerides Reference Interval Normal <150 mg/dL Borderline high 150 - 199 mg/dL High 200 - 499 mg/dL Very High > or = 500 mg/dL Direct bilirubinOrdered By: Jaclyn Siddiqui on 04-20-2023 Bilirubin.direct [Mass/Vol] 0.20 mg/dL 0.00-0.30 [facility] Laboratory - Chemistry and C hemistry - challengeOrdered By: Jaclyn Siddiqui on 04-20-2023 ALP [Catalytic activity/Vol] 47 U/L 45-117 [facility] ALT [Catalytic activity/Vol] 19 U/L 13-56 [facility] Cholesterol in HDL [Mass/Vol] 43 mg/dL >40 [facility] Comment on above: The drugs N-Acetylcy steine and Metamizole may falsely depress this assay. Reference Range HDL <40 mg/dL Low HDL Cholesterol HDL >or= 60 mg/dL High HDL Cholesterol Cholesterol in LDL [Mass/Vol] 100 mg/dL 0-130 [facility] Globulin (S) [Mass/Vol] 3.7 g/dL 2.2-4.2 [facility] No Panel InformationOrdered By: Jaclyn Siddiqui on 04-20-2023 VLDL Cholesterol 21 mg/dL 5-40 [facility] Serum or plasma thyroid stim ulating hormone (TSH) measurement (units/volume)Ordered By: Jaclyn Siddiqui on 04-20-2023 TSH Qn 1.18 uIU/mL 0.358-3.74 [facility] Thin prep Papanicolaou smear with manual screeningOrdered By: Jaclyn Siddiqui on 04-20-2023 Thin prep Papanicolaou smear with manual screening 3.8 g/dL 3.2-5.0 [facility] Thin prep Papanicolaou smear with manual screening 15 U/L 15-37 [facility] Basophil percentageOrdered B y: Angel Luis Middleton on 04-05-2023 Basophil percentage 3.2 mg/dL 2.5-4.9 [facility] Chloride [Moles/Vol] 107 mmol/L 98-107 [facility] Glucose [Mass/Vol] 107 mg/dL 74-106 [facility] Comment on above: Fasting Glucose resu lt from 100 to 125 mg/dL suggests IMPAIRED HOMEOSTASIS per A.D.A. criteria. Hemoglobin (Bld) [Mass/Vol] 13.2 g/dL 12.0-15.0 [facility] Potassium [Moles/Vol] 4.1 mmol/L 3.5-5.1 [facility] Sodium [Moles/Vol] 137 mmol/L 136-145 [facility] WBC (Bld) [#/Vol] 6.2 10*3/uL 4.4-11.0 [facility] Determination of erythrocyte mean corpuscular volume (MCV)Ordered By: Angel Luis Middleton on 04-05-2023 MCV (RBC) [Entitic vol] 95.2 fL 81-99 [facility] Erythrocyte distribution wid th ratioOrdered By: Angel Luis Middleton on 04-05-2023 Erythrocyte distribution width (RBC) [Ratio] 14.5 % 11.6-14.6 [facility] Erythrocyte distribution wid th standard deviationOrdered By: Angel Luis Middleton on 04-05-2023 Erythrocyte distribution width (RBC) [Entitic vol] 50.6 fL 35.1-43.9 [facility] Hematocrit Auto (Bld) [Volum e fraction]Ordered By: Angel Luis Middleton on 04-05-2023 Hematocrit (Bld) [Volume fraction] 41.3 % 37-47 [facility] Laboratory - Chemistry and C hemistry - challengeOrdered By: Angel Luis Middleton on 04-05-2023 CO2 [Moles/Vol] 26.0 mmol/L 21.0-32.0 [facility] Urea nitrogen/Creatinine [Mass ratio] 26.1 mg/mg 10-20 [facility] Laboratory - Hematology and Cell countsOrdered By: Angel Luis Middleton on 04-05-2023 MCH (RBC) [Entitic mass] 30.4 pg 27.0-32.0 [facility] MCHC (RBC) [Mass/Vol] 32.0 g/dL 32-36 [facility] Platelet mean volume (Bld) [Entitic vol] 12.0 fL 6.2-12.0 [facility] Platelets (Bld) [#/Vol] 263 10*3/uL 150-450 [facility] No Panel InformationOrdered By: Angel Luis Middleton on 04-05-2023 Estimated GFR (MDRD) Amer 49 mL/min >60 [facility] Comment on above: GFR Calc Estimated GFR (MDRD) Non-Af Amer 41 mL/min >60 [facility] Comment on above: Non- GFR Calc Parathyroid Hormone (Intact) 46.8 pg/mL 18.4-80.1 [facility] Vitamin D 25-Hydroxy 36.0 ng/mL [facility] Comment on above: Vitamin D 25(OH) Sta tus Range Deficiency <20 ng/mL (50nmol/L) Insufficiency 20 - 30 ng/mL (50 - 75 nmol/L) Sufficiency 30 - 100 ng/mL (75 - 250 nmol/L) Toxicity >100 ng/mL (>250 nmol/L) RBC Auto (Bld) [#/Vol]Ordere d By: Angel Luis Middleton on 04-05-2023 RBC (Bld) [#/Vol] 4.34 10*6/uL 4.2-5.4 [facility] Serum or plasma calcium diamond urement (mass/volume)Ordered By: Angel Luis Middleton on 04-05-2023 Calcium [Mass/Vol] 9.8 mg/dL 8.5-10.1 [facility] Serum or plasma creatinine m easurement (mass/volume)Ordered By: Angel Luis Middleton on 04-05-2023 Creatinine [Mass/Vol] 1.34 mg/dL 0.55-1.02 [facility] Comment on above: The validity of the calculated GFR & GFRAA in patients over 70 years has not been determined. Clinical correlation is essential. Serum or plasma urea nitroge n measurement (mass/volume)Ordered By: Angel Luis Middleton on 04-05-2023 Urea nitrogen [Mass/Vol] 35 mg/dL 7-18 [facility] Thin prep Papanicolaou smear with manual screeningOrdered By: Angel Luis Middleton on 04-05-2023 Protein (U) [Mass/Vol] 7.1 mg/dL 0.0-11.8 [facility] Thin prep Papanicolaou smear with manual screening 3.5 g/dL 3.2-5.0 [facility] Urine creatinine measurement (mass/volume)Ordered By: Angel Luis Middleton on 04-05-2023 Creatinine (U) [Mass/Vol] 46.60 mg/dL NO RANGE EST. [facility] Urine protein/creatinine mas s ratioOrdered By: Angel Luis Middleton on 04-05-2023 Protein/Creatinine (U) [Mass ratio] 152 mg/g CRE 0-200 [facility] Blood Glucose , Office ([phone])Ordered By: Jasiel Hardy on 10-15-2022 Glucose Glucometer (BldC) [Moles/Vol] 130 1 Normal [facility]; [facility] Work Phone: HgA1C , Office ([phone])Ordere d By: Jasiel Hardy on 10-15-2022 HbA1c (Bld) [Mass fraction] 5.9 % Normal 4.6 - 7.1 [facility]; [facility] Work Phone: POTASSIUM SERUM ([phone])Order ed By: Lpn Or Medical Assistant on 10-15-2022 Potassium [Moles/Vol] 4.4 mmol/L Normal 3.5-5.2 [facility] prehensive Internal Medicine; [facility] Work Phone: Comment on above: PATIENT NOT FASTINGP ERFORMED BY: [facility] Alwqfr0[address]Dublin [place] [id number] CBC W/AUTO DIFF WBC (25961)O rdered By: Lpn Or Medical Assistant on 10-08-2022 Basophils (Bld) [#/Vol] 0.0 10*3/uL Normal 0.0-0.2 [facility]; [facility] Work Phone: Comment on above: PATIENT WAS FASTINGP ERFORMED BY: [facility] Kykqsk33[address]Dublin [place] [id number] Basophils/100 WBC (Bld) 0 % Normal [facility]; [facility] Work Phone: Comment on above: PATIENT WAS FASTINGP ERFORMED BY: [facility] Vemavs4723 [address] RoadDublin [place] [id number] Eosinophils (Bld) [#/Vol] 0.1 10*3/uL Normal 0.0-0.4 [facility]; [facility] Work Phone: Comment on above: PATIENT WAS FASTINGP ERFORMED BY: [facility] Esdeel37[address]Dublin [place] [id number] Eosinophils/100 WBC (Bld) 2 % Normal [facility]; [facility] Work Phone: Comment on above: PATIENT WAS FASTINGP ERFORMED BY: [facility] Ljnpnp[address] ShedWorxblin [place] [id number] Erythrocyte distribution width (RBC) [Ratio] 13.0 % Normal 11.7-15.4 [facility]; [facility] Work Phone: Comment on above: PATIENT WAS FASTINGP ERFORMED BY: [facility] Ssmrdx7[address]Dublin [place] [id number] Hematocrit (Bld) [Volume fraction] 41.7 % Normal 34.0-46.6 [facility]; [facility] Work Phone: Comment on above: PATIENT WAS FASTINGP ERFORMED BY: NOHEMY Christine[address] [facility]in [place] [id number] Hemoglobin (Bld) [Mass/Vol] 13.4 g/dL Normal 11.1-15.9 [facility]; [facility] Work Phone: Comment on above: PATIENT WAS FASTINGP ERFORMED BY: [facility] Xifqem6[address]blin [place] [id number] Immature granulocytes (Bld) [#/Vol] 0.0 10*3/uL Normal 0.0-0.1 [facility]; [facility] Work Phone: Comment on above: PATIENT WAS FASTINGP ERFORMED BY: NOHEMY Tonie Lfweie4621 [address] RoadKindred Hospital [facility] [id number] Immature granulocytes/100 WBC (Bld) 0 % Normal [facility]; [facility] Work Phone: Comment on above: PATIENT WAS FASTINGP ERFORMED BY: [facility] [id number] [facility]in [place] [id number] Lymphocytes (Bld) [#/Vol] 1.8 10*3/uL Normal 0.7-3.1 [facility]; [facility] Work Phone: Comment on above: PATIENT WAS FASTINGP ERFORMED BY: [facility] Dvtisb[address] [facility]in [place] [id number] Lymphocytes/100 WBC (Bld) 24 % Normal [facility]; [facility] Work Phone: Comment on above: PATIENT WAS FASTINGP ERFORMED BY: NOHEMY [facility] Kyodvo[address] [facility] HospitalDublin [place] [id number] MCH (RBC) [Entitic mass] 30.7 pg Normal 26.6-33.0 [facility]; [facility] Work Phone: Comment on above: PATIENT WAS FASTINGP ERFORMED BY: [facility] Nexufs[address] [facility] [place] [id number] MCHC (RBC) [Mass/Vol] 32.1 g/dL Normal 31.5-35.7 [facility] prehens[facility]; [facility] Work Phone: Comment on above: PATIENT WAS FASTINGP ERFORMED BY: NOHEMY Labcosimona ChristineUsgbfa37[address]Dublin [place] [id number] MCV (RBC) [Entitic vol] 96 fL Normal 79-97 [facility]; [facility] Work Phone: Comment on above: PATIENT WAS FASTINGP ERFORMED BY: CB [facility] Tpmefg22[address]Dublin [place] [id number] Monocytes (Bld) [#/Vol] 0.9 10*3/uL Normal 0.1-0.9 [facility]; [facility] Work Phone: Comment on above: PATIENT WAS FASTINGP ERFORMED BY: NOHEMY [facility] Aqlwhx45[address]Dublin [place] [id number] Monocytes/100 WBC (Bld) 12 % Normal [facility]; [facility] Work Phone: Comment on above: PATIENT WAS FASTINGP ERFORMED BY: NOHEMY [facility] Njvnjm3948 [address] RoadDublin [place] [id number] Neutrophils (Bld) [#/Vol] 4.6 10*3/uL Normal 1.4-7.0 [facility]; [facility] Work Phone: Comment on above: PATIENT WAS FASTINGP ERFORMED BY: CB [facility] Jetwha23[address]Dublin [place] [id number] Neutrophils/100 WBC (Bld) 62 % Normal [facility]; [facility] Work Phone: Comment on above: PATIENT WAS FASTINGP ERFORMED BY: CB [facility] Alhjsa5[address]Dublin [place] [id number] Platelets (Bld) [#/Vol] 287 10*3/uL Normal 150-450 [facility]; [facility] Work Phone: Comment on above: PATIENT WAS FASTINGP ERFORMED BY: CB [facility] Elzria99[address] RoadDublin [place] [id number] RBC (Bld) [#/Vol] 4.36 10*6/uL Normal 3.77-5.28 [facility]; [facility] Work Phone: Comment on above: PATIENT WAS FASTINGP ERFORMED BY: NOHEMY Christine6370 [facility] Hospitalblin [place] [id number] WBC (Bld) [#/Vol] 7.4 10*3/uL Normal 3.4-10.8 [facility]; [facility] Work Phone: Comment on above: PATIENT WAS FASTINGP ERFORMED BY: NOHEMY Alexs[facility] [id number] [facility] [place] [id number] LIPID PANEL ([id number])Ordered B y: Lpn Or Medical Assistant on 10-08-2022 Cholesterol [Mass/Vol] 182 mg/dL Normal 100-199 [facility]; [facility] Work Phone: Comment on above: PATIENT WAS FASTINGP ERFORMED BY: NOHEMY Tonie Xskdiq3514 [facility] [id number] Cholesterol in HDL [Mass/Vol] 41 mg/dL Normal [facility]; [facility] Work Phone: Comment on above: PATIENT WAS FASTINGP ERFORMED BY: NHOEMY Jimeneslin6370 [facility] [id number] Triglyceride [Mass/Vol] 112 mg/dL Normal 0-149 [facility]; [facility] Work Phone: Comment on above: PATIENT WAS FASTINGP ERFORMED BY: Tonie Gymedr2286 [facility] [place] [id number] LIPID PANEL (43321) 20 mg/dL Normal 5-40 [facility]; [facility] Work Phone: Comment on above: PATIENT WAS FASTINGP ERFORMED BY: NOHEMY Alicea Jldubs0515 [facility] [place] [id number] LIPID PANEL (21773) 121 mg/dL Abnormal 0-99 [facility]; [facility] Work Phone: Comment on above: PATIENT WAS FASTINGP ERFORMED BY: NOHEMY [facility] Dstcpw2639 [address]Dublin [place] [id number] LIPID PANEL (03672) 3.0 {ratio} Normal 0.0-3.2 [facility] Internal [facility]; [facility] Work Phone: Comment on above: LDL/HDL Ratio Men Wo men 1/2 Avg.Risk 1.0 1.5 Avg.Risk 3.6 3.2 2X Avg.Risk 6.2 5.0 3X Avg.Risk 8.0 6.1 PATIENT WAS FASTINGP ERFORMED BY: [facility] Graadj4437 [address]Dublin [place] [id number] METABOLIC PANEL, COMPREHENSI VE ([id number])Ordered By: Lpn Or Medical Assistant on 10-08-2022 Albumin [Mass/Vol] 4.3 g/dL Normal 3.8-4.8 [facility] Internal [facility]; [facility] Work Phone: Comment on above: PATIENT WAS FASTINGP ERFORMED BY: [facility] Qvruvp0279 [address] RoadDublin [place] [id number] Albumin/Globulin [Mass ratio] 1.5 {ratio} Normal 1.2-2.2 [facility]; [facility] Work Phone: Comment on above: PATIENT WAS FASTINGP ERFORMED BY: [facility] Kidxju5025 [address] RoadDublin [place] [id number] ALP [Catalytic activity/Vol] 43 U/L Abnormal 44-121 [facility]; [facility] Work Phone: Comment on above: PATIENT WAS FASTINGP ERFORMED BY: [facility] Nqnbmg0280 [address] RoadDublin [place] [id number] ALT [Catalytic activity/Vol] 12 U/L Normal 0-32 [facility]; [facility] Work Phone: Comment on above: PATIENT WAS FASTINGP ERFORMED BY: [facility] Vvnlhh7485 [address] RoadDublin [place] [id number] AST [Catalytic activity/Vol] 16 U/L Normal 0-40 [facility]; [facility] Work Phone: Comment on above: PATIENT WAS FASTINGP ERFORMED BY: [facility] Gklyzt1702 [address]Dublin [place] [id number] Bilirubin [Mass/Vol] 0.3 mg/dL Normal 0.0-1.2 [facility] rehens[facility]; [facility] Work Phone: Comment on above: PATIENT WAS FASTINGP ERFORMED BY: [facility] Dlckme0480 [address]Dublin [place] [id number] Calcium [Mass/Vol] 10.3 mg/dL Normal 8.7-10.3 [facility] Internal Medicine; [facility] Work Phone: Comment on above: PATIENT WAS FASTINGP ERFORMED BY: [facility] Sneaky59[address] RoadDublin [place] [id number] Chloride [Moles/Vol] 103 mmol/L Normal 96-106 [facility] rehensive Internal Medicine; [facility] Work Phone: Comment on above: PATIENT WAS FASTINGP ERFORMED BY: [facility] Ffekcu7[address]Dublin [place] [id number] CO2 [Moles/Vol] 20 mmol/L Normal 20-29 [facility]; [facility] Work Phone: Comment on above: PATIENT WAS FASTINGP ERFORMED BY: [facility] Bfuvts7[address] RoadDublin [place] [id number] Creatinine [Mass/Vol] 1.41 mg/dL Abnormal 0.57-1.00 [facility] prehensive Internal Medicine; [facility] Work Phone: Comment on above: PATIENT WAS FASTINGP ERFORMED BY: [facility] Lxzbns88[address] RoadDublin [place] [id number] GFR/1.73 sq M.predicted among non-blacks MDRD (S/P/Bld) [Vol rate/Area] 38 mL/min/{1.73_m2} Abnormal Comprehensiv e Internal Medicine; [facility] Work Phone: Comment on above: PATIENT WAS FASTINGP ERFORMED BY: [facility] Agjtow77[address]Dublin [place] [id number] Globulin (S) [Mass/Vol] 2.9 g/dL Normal 1.5-4.5 [facility]; [facility] Work Phone: Comment on above: PATIENT WAS FASTINGP ERFORMED BY: NOHEMY Alexsterling JimenesJiqigy27[address]Dublin [place] [id number] Glucose [Mass/Vol] 99 mg/dL Normal 70-99 [facility] Internal Medicine; [facility] Work Phone: Comment on above: PATIENT WAS FASTINGP ERFORMED BY: NOHEMY [facility] Xbahob[address]Dublin [place] [id number] Potassium [Moles/Vol] 5.5 mmol/L Abnormal 3.5-5.[address] [facility] Internal Medicine; [facility] Work Phone: Comment on above: PATIENT WAS FASTINGP ERFORMED BY: NOHEMY Jimeneslin[address]Dublin [place] [id number] Protein [Mass/Vol] 7.2 g/dL Normal 6.0-8.5 [facility] Internal Medicine; [facility] Work Phone: Comment on above: PATIENT WAS FASTINGP ERFORMED BY: NOHEMY Labsterling JimenesJjnciq7[address] RoadDublin [place] [id number] Sodium [Moles/Vol] 139 mmol/L Normal 134-144 [facility] Internal Medicine; [facility] Work Phone: Comment on above: PATIENT WAS FASTINGP ERFORMED BY: NOHEMY [facility] Bfoulh66[address]Dublin [place] [id number] Urea nitrogen [Mass/Vol] 35 mg/dL Abnormal 8-27 [facility] Internal Medicine; [facility] Work Phone: Comment on above: PATIENT WAS FASTINGP ERFORMED BY: NOHEMY Labcosimona Qnilgr[address]Dublin [place] [id number] Urea nitrogen/Creatinine [Mass ratio] 25 mg/mg Normal 12-28 [facility]; [facility] Work Phone: Comment on above: PATIENT WAS FASTINGP ERFORMED BY: NHOEMY [facility] Khmzbk38[address]Dublin [place] [id number] Basophil percentageOrdered B y: Dr. Middleton on 03-26-2022 Chloride [Moles/Vol] 104 mmol/L 98-107 [facility] Glucose [Mass/Vol] 91 mg/dL 74-106 [facility] Potassium [Moles/Vol] 4.5 mmol/L 3.5-5.1 [facility] Sodium [Moles/Vol] 135 mmol/L 136-145 [facility] Laboratory - Chemistry and C hemistry - challengeOrdered By: Dr. Middleton on 03-26-2022 CO2 [Moles/Vol] 23.0 mmol/L 21.0-32.0 [facility] Urea nitrogen/Creatinine [Mass ratio] 29.2 mg/mg 10-20 [facility] No Panel InformationOrdered By: Dr. Middleton on 03-26-2022 Estimated GFR (MDRD) Amer 42 mL/min >60 [facility] Comment on above: GFR Calc Estimated GFR (MDRD) Non-Af Amer 35 mL/min >60 [facility] Comment on above: Non- GFR Calc Serum or plasma calcium diamond urement (mass/volume)Ordered By: Dr. Middleton on 03-26-2022 Calcium [Mass/Vol] 9.6 mg/dL 8.5-10.1 [facility] Serum or plasma creatinine m easurement (mass/volume)Ordered By: Dr. Middleton on 03-26-2022 Creatinine [Mass/Vol] 1.54 mg/dL 0.55-1.02 [facility] Comment on above: The validity of the calculated GFR & GFRAA in patients over 70 years has not been determined. Clinical correlation is essential. Serum or plasma urea nitroge n measurement (mass/volume)Ordered By: Dr. Middleton on 03-26-2022 Urea nitrogen [Mass/Vol] 45 mg/dL 7-18 [facility] Thin prep Papanicolaou smear with manual screeningOrdered By: Dr. Middleton on 03-26-2022 Thin prep Papanicolaou smear with manual screening 8 5-15 [facility] Absolute lymphocyte countOrd ered By: Jadyn Asif on 03-19-2022 Lymphocytes Auto (Unsp spec) [#/Vol] 2.35 10*3/uL 0.83-4.51 [facility] Basophil percentageOrdered B y: Jadyn Asif on 03-19-2022 Basophils/100 WBC (Bld) 0.2 % 0-1 [facility] Eosinophils/100 WBC (Bld) 3.2 % 0-5 [facility] Neutrophils (Bld) [#/Vol] 4.5 10*3/uL 2.0-7.7 [facility] Neutrophils/100 WBC (Bld) 55.9 % 47-70 [facility] WBC (Bld) [#/Vol] 8.1 10*3/uL 4.4-11.0 [facility] Blood erythrocytes count (nu mber/volume)Ordered By: Jadyn Asif on 03-19-2022 RBC (Bld) [#/Vol] 4.15 10*6/uL 4.2-5.4 [facility] Blood hemoglobin measurement (mass/volume)Ordered By: Jadyn Asif on 03-19-2022 Hemoglobin (Bld) [Mass/Vol] 12.8 g/dL 12.0-15.0 [facility] Blood lymphocytes/100 leukoc ytesOrdered By: Jadyn Asif on 03-19-2022 Lymphocytes/100 WBC (Bld) 29.2 % 19-41 [facility] Blood monocytes/100 leukocyt esOrdered By: Jadyn Asif on 03-19-2022 Monocytes/100 WBC (Bld) 11.4 % 0-10 [facility] Blood platelet mean volumeOr dered By: Jadyn Asif on 03-19-2022 Platelet mean volume (Bld) [Entitic vol] 12.2 fL 6.2-12.0 [facility] Determination of erythrocyte mean corpuscular volume (MCV)Ordered By: Jadyn Asif on 03-19-2022 MCV (RBC) [Entitic vol] 94.2 fL 81-99 [facility] Hematocrit Auto (Bld) [Volum e fraction]Ordered By: Jadyn Asif on 03-19-2022 Hematocrit (Bld) [Volume fraction] 39.1 % 37-47 [facility] Laboratory - Hematology and Cell countsOrdered By: Jadyn Asif on 03-19-2022 Erythrocyte distribution width (RBC) [Entitic vol] 51.7 fL 35.1-43.9 [facility] Erythrocyte distribution width (RBC) [Ratio] 14.9 % 11.6-14.6 [facility] Immature granulocytes/100 WBC (Bld) 0.100 % 0.0-0.9 [facility] Comment on above: IG% - Immature Granu locytes (promyelocytes, myelocytes and metamyelocytes) > 1% indicates that a LEFT SHIFT is Present. MCH (RBC) [Entitic mass] 30.8 pg 27.0-32.0 [facility] Nucleated RBC/100 WBC (Bld) [Ratio] 0 % 0-5 [facility] MCHC Auto (RBC) [Mass/Vol]Or dered By: Jadyn Asif on 03-19-2022 MCHC (RBC) [Mass/Vol] 32.7 g/dL 32-36 [facility] Platelets bldOrdered By: Andres Asif on 03-19-2022 Platelets (Bld) [#/Vol] 269 10*3/uL 150-450 [facility] Absolute lymphocyte countOrd ered By: Dr. Monae on 02-20-2022 Lymphocytes Auto (Unsp spec) [#/Vol] 2.08 10*3/uL 0.83-4.51 [facility] Basophil percentageOrdered B y: Dr. Monae on 02-20-2022 Basophils/100 WBC (Bld) 0.1 % 0-1 [facility] Chloride [Moles/Vol] 107 mmol/L 98-107 [facility] Eosinophils/100 WBC (Bld) 2.4 % 0-5 [facility] Glucose [Mass/Vol] 99 mg/dL 74-106 [facility] Neutrophils (Bld) [#/Vol] 6.4 10*3/uL 2.0-7.7 [facility] Neutrophils/100 WBC (Bld) 65.9 % 47-70 [facility] Potassium [Moles/Vol] 4.3 mmol/L 3.5-5.1 [facility] Sodium [Moles/Vol] 139 mmol/L 136-145 [facility] WBC (Bld) [#/Vol] 9.6 10*3/uL 4.4-11.0 [facility] Blood erythrocytes count (nu mber/volume)Ordered By: Dr. Monae on 02-20-2022 RBC (Bld) [#/Vol] 4.44 10*6/uL 4.2-5.4 [facility] Blood hemoglobin measurement (mass/volume)Ordered By: Dr. Monae on 02-20-2022 Hemoglobin (Bld) [Mass/Vol] 13.3 g/dL 12.0-15.0 [facility] Blood lymphocytes/100 leukoc ytesOrdered By: Dr. Monae on 02-20-2022 Lymphocytes/100 WBC (Bld) 21.6 % 19-41 [facility] Blood monocytes/100 leukocyt esOrdered By: Dr. Monae on 02-20-2022 Monocytes/100 WBC (Bld) 9.7 % 0-10 [facility] Blood platelet mean volumeOr dered By: Dr. Monae on 02-20-2022 Platelet mean volume (Bld) [Entitic vol] 11.3 fL 6.2-12.0 [facility] Determination of erythrocyte mean corpuscular volume (MCV)Ordered By: Dr. Monae on 02-20-2022 MCV (RBC) [Entitic vol] 93.9 fL 81-99 [facility] Hematocrit Auto (Bld) [Volum e fraction]Ordered By: Dr. Monae on 02-20-2022 Hematocrit (Bld) [Volume fraction] 41.7 % 37-47 [facility] Laboratory - Chemistry and C hemistry - challengeOrdered By: Dr. Monae on 02-20-2022 CO2 [Moles/Vol] 26.0 mmol/L 21.0-32.0 [facility] Urea nitrogen/Creatinine [Mass ratio] 25.5 mg/mg 10-20 [facility] Laboratory - Hematology and Cell countsOrdered By: Dr. Monae on 02-20-2022 Erythrocyte distribution width (RBC) [Entitic vol] 50.6 fL 35.1-43.9 [facility] Erythrocyte distribution width (RBC) [Ratio] 14.6 % 11.6-14.6 [facility] Immature granulocytes/100 WBC (Bld) 0.300 % 0.0-0.9 [facility] Comment on above: IG% - Immature Granu locytes (promyelocytes, myelocytes and metamyelocytes) > 1% indicates that a LEFT SHIFT is Present. MCH (RBC) [Entitic mass] 30.0 pg 27.0-32.0 [facility] Nucleated RBC/100 WBC (Bld) [Ratio] 0 % 0-5 [facility] MCHC Auto (RBC) [Mass/Vol]Or dered By: Dr. Monae on 02-20-2022 MCHC (RBC) [Mass/Vol] 31.9 g/dL 32-36 [facility] No Panel InformationOrdered By: Dr. Monae on 02-20-2022 Estimated Creatinine Clearance Calc 29.28 ml/min [facility] Estimated GFR (MDRD) Amer 42 mL/min >60 [facility] Comment on above: GFR Calc Estimated GFR (MDRD) Non-Af Amer 35 mL/min >60 [facility] Comment on above: Non- GFR Calc Troponin I High Sensitivity 6 pg/mL 3.0-54.0 [facility] Comment on above: Please Note: [place] t Units and Gender Specific Reference Ranges. For more information see Policy Stat Procedure Porter High Sensitivity Troponin (TNIH) and attachments. Platelets bldOrdered By: Dr. Monae on 02-20-2022 Platelets (Bld) [#/Vol] 300 10*3/uL 150-450 [facility] Serum or plasma calcium diamond urement (mass/volume)Ordered By: Dr. Monae on 02-20-2022 Calcium [Mass/Vol] 9.4 mg/dL 8.5-10.1 [facility] Serum or plasma creatinine m easurement (mass/volume)Ordered By: Dr. Monae on 02-20-2022 Creatinine [Mass/Vol] 1.53 mg/dL 0.55-1.02 [facility] Comment on above: The validity of the calculated GFR & GFRAA in patients over 70 years has not been determined. Clinical correlation is essential. Serum or plasma urea nitroge n measurement (mass/volume)Ordered By: Dr. Monae on 02-20-2022 Urea nitrogen [Mass/Vol] 39 mg/dL 7-18 [facility] Thin prep Papanicolaou smear with manual screeningOrdered By: Dr. Monae on 02-20-2022 Thin prep Papanicolaou smear with manual screening 6 5-15 [facility] C-REACTIVE PROTEIN ([id number])Or dered By: Lpn Or Medical Assistant on 12-21-2021 CRP [Mass/Vol] 8 mg/L Normal 0-10 [facility] Internal Medicine; [facility] Work Phone: Comment on above: PATIENT WAS FASTINGP ERFORMED BY: BuddyBounceCrittenden [facility] [id number] CALCIFEDIOL ([id number])Ordered B y: Lpn Or Medical Assistant on 12-21-2021 25-hydroxyvitamin D [Mass/Vol] 52.0 ng/mL Normal 30.0-100.0 [facility]; [facility] Work Phone: Comment on above: Vitamin D deficiency has been defined by the [place] ofMedicine and an Endocrine Society practice guideline as alevel of serum 25-OH vitamin D less than 20 ng/mL (1,2).The Endocrine Society went on to further define vitamin Dinsufficiency as a level between 21 and 29 ng/mL (2).1. IOM ([place] of Medicine). 2010. Dietary reference intakes for calcium and D. [place]: The National Academies Press.2. Darrel [place], [place], [place], et al. Evaluation, treatment, and prevention of vitamin D deficiency: an Endocrine Society clinical practice guideline. JCEM. 2010; 96(7):1911-30. PATIENT WAS FASTINGP ERFORMED BY: [employer]70 IDbyMECrittenden County Hospital [id number] CBC with auto diff ([id number])Or dered By: Lpn Or Medical Assistant on 12-21-2021 Basophils (Bld) [#/Vol] 0.0 10*3/uL Normal 0.0-0.2 [facility]; [facility] Work Phone: Comment on above: PATIENT WAS FASTINGP ERFORMED BY: [place] PERL6370 [facility]Central [facility] [id number] Basophils/100 WBC (Bld) 1 % Normal [facility]; [facility] Work Phone: Comment on above: PATIENT WAS FASTINGP ERFORMED BY: Geeksphoneblin [place] [id number] Eosinophils (Bld) [#/Vol] 0.3 10*3/uL Normal 0.0-0.4 [facility]; [facility] Work Phone: Comment on above: PATIENT WAS FASTINGP ERFORMED BY: NOHEMY [employer] Nvfnex5166 [address] RoadKindred Hospital [facility] [id number] Eosinophils/100 WBC (Bld) 5 % Normal [facility]; [facility] Work Phone: Comment on above: PATIENT WAS FASTINGP ERFORMED BY: [facility] Whatox[address] [facility] [id number] Erythrocyte distribution width (RBC) [Ratio] 12.3 % Normal 11.7-15.4 [facility]; [facility] Work Phone: Comment on above: PATIENT WAS FASTINGP ERFORMED BY: Alexsaint [facility] Cxczbb38[address] [facility] [id number] Hematocrit (Bld) [Volume fraction] 40.6 % Normal 34.0-46.6 [facility]; [facility] Work Phone: Comment on above: PATIENT WAS FASTINGP ERFORMED BY: Tonie Ymdkqn[address] [facility] [id number] Hemoglobin (Bld) [Mass/Vol] 13.0 g/dL Normal 11.1-15.9 [facility]; [facility] Work Phone: Comment on above: PATIENT WAS FASTINGP ERFORMED BY: [facility] Skmivl84[address] [facility] [id number] Immature granulocytes (Bld) [#/Vol] 0.0 10*3/uL Normal 0.0-0.1 [facility]; [facility] Work Phone: Comment on above: PATIENT WAS FASTINGP ERFORMED BY: [facility] Ctckqc[address] [facility] [place] [id number] Immature granulocytes/100 WBC (Bld) 0 % Normal [facility]; [facility] Work Phone: Comment on above: PATIENT WAS FASTINGP ERFORMED BY: Labs[facility] Jlhvhp4180 [address] Roadblin [place] [id number] Lymphocytes (Bld) [#/Vol] 1.8 10*3/uL Normal 0.7-3.1 [facility]; [facility] Work Phone: Comment on above: PATIENT WAS FASTINGP ERFORMED BY: LabSelect [facility]6[address] Roadblin [place] [id number] Lymphocytes/100 WBC (Bld) 33 % Normal [facility]; [facility] Work Phone: Comment on above: PATIENT WAS FASTINGP ERFORMED BY: LabSelect [facility]6[address]blin [place] [id number] MCH (RBC) [Entitic mass] 30.0 pg Normal 26.6-33.0 [facility]; [facility] Work Phone: Comment on above: PATIENT WAS FASTINGP ERFORMED BY: [facility] [facility] [place] [id number] MCHC (RBC) [Mass/Vol] 32.0 g/dL Normal 31.5-35.7 [facility] prehensive Internal Medicine; [facility] Work Phone: Comment on above: PATIENT WAS FASTINGP ERFORMED BY: LabSelect [facility] [facility]bl[facility] [place] [id number] MCV (RBC) [Entitic vol] 94 fL Normal 79-97 [facility]; [facility] Work Phone: Comment on above: PATIENT WAS FASTINGP ERFORMED BY: Lab[facility] [facility] [place] [id number] Monocytes (Bld) [#/Vol] 0.8 10*3/uL Normal 0.1-0.9 [facility]; [facility] Work Phone: Comment on above: PATIENT WAS FASTINGP ERFORMED BY: LabSelect [facility] Hospital6[address]Dublin [place] [id number] Monocytes/100 WBC (Bld) 15 % Normal [facility]; [facility] Work Phone: Comment on above: PATIENT WAS FASTINGP ERFORMED BY: CB [facility] Czsdzv7742 [address] RoadDublin [place] [id number] Neutrophils (Bld) [#/Vol] 2.6 10*3/uL Normal 1.4-7.0 [facility]; [facility] Work Phone: Comment on above: PATIENT WAS FASTINGP ERFORMED BY: CB [facility] Dstuix5790 [address] RoadDublin [place] [id number] Neutrophils/100 WBC (Bld) 46 % Normal [facility]; [facility] Work Phone: Comment on above: PATIENT WAS FASTINGP ERFORMED BY: CB [facility] Jjghfa7142 [address] RoadDublin [place] [id number] Platelets (Bld) [#/Vol] 335 10*3/uL Normal 150-450 [facility]; [facility] Work Phone: Comment on above: PATIENT WAS FASTINGP ERFORMED BY: CB [facility] Txftqe4837 [address] RoadDublin [place] [id number] RBC (Bld) [#/Vol] 4.34 10*6/uL Normal 3.77-5.28 Compr ehensive Internal Medicine; [facility] Work Phone: Comment on above: PATIENT WAS FASTINGP ERFORMED BY: CB [facility] Ggnjgo5988 [address] RoadDublin [place] [id number] WBC (Bld) [#/Vol] 5.6 10*3/uL Normal 3.4-10.8 Compre hensive Internal Medicine; [facility] Work Phone: Comment on above: PATIENT WAS FASTINGP ERFORMED BY: CB [facility] Ydcckq6592 [address] RoadDublin [place] [id number] LIPID PANEL ([id number])Ordered B y: Lpn Or Medical Assistant on 12-21-2021 Cholesterol [Mass/Vol] 145 mg/dL Normal 100-199 [facility]; [facility] Work Phone: Comment on above: PATIENT WAS FASTINGP ERFORMED BY: CB [facility] Almqoh7764 [address] RoadDublin [place] [id number] Cholesterol in HDL [Mass/Vol] 34 mg/dL Abnormal [facility]; [facility] Work Phone: Comment on above: PATIENT WAS FASTINGP ERFORMED BY: NOHEMY Labcosimona ChristineQjxmsl5656 [address] Roadblin [place] [id number] Triglyceride [Mass/Vol] 109 mg/dL Normal 0-149 [facility]; [facility] Work Phone: Comment on above: PATIENT WAS FASTINGP ERFORMED BY: NOHEMY [facility] Rdzhxn4239 [address] Roadblin [place] [id number] LIPID PANEL ([id number]) 20 mg/dL Normal 5-40 [facility]; [facility] Work Phone: Comment on above: PATIENT WAS FASTINGP ERFORMED BY: NOHEMY Labcosimona Ekgwnd1207 [address]blin [place] [id number] LIPID PANEL (15660) 91 mg/dL Normal 0-99 [facility]; [facility] Work Phone: Comment on above: PATIENT WAS FASTINGP ERFORMED BY: NOHEMY [facility] Fxincc[address] [facility] [place] [id number] LIPID PANEL (05825) 2.7 {ratio} Normal 0.0-3.2 [facility] Internal Medicine; [facility] Work Phone: Comment on above: LDL/HDL Ratio Men Wo men 1/2 Avg.Risk 1.0 1.5 Avg.Risk 3.6 3.2 2X Avg.Risk 6.2 5.0 3X Avg.Risk 8.0 6.1 PATIENT WAS FASTINGP ERFORMED BY: NOHEMY [facility] Jtsohj[address] [facility] [place] [id number] METABOLIC PANEL, COMPREHENSI VE ([id number])Ordered By: Lpn Or Medical Assistant on 12-21-2021 Albumin [Mass/Vol] 4.2 g/dL Normal 3.7-4.7 [facility] Internal Medicine; [facility] Work Phone: Comment on above: PATIENT WAS FASTINGP ERFORMED BY: NOHEMY [facility] Luksdv9630 [address] RoadDublin [place] [id number] Albumin/Globulin [Mass ratio] 1.4 {ratio} Normal 1.2-2.2 [facility]; [facility] Work Phone: Comment on above: PATIENT WAS FASTINGP ERFORMED BY: NOHEMY [facility] Hmtghq4122 [address] RoadDublin [place] [id number] ALP [Catalytic activity/Vol] 42 U/L Abnormal 44-121 [facility]; [facility] Work Phone: Comment on above: PATIENT WAS FASTINGP ERFORMED BY: CB [facility] Vwjtne4689 [address] RoadDublin [place] [id number] ALT [Catalytic activity/Vol] 10 U/L Normal 0-32 [facility]; [facility] Work Phone: Comment on above: PATIENT WAS FASTINGP ERFORMED BY: [facility] Shocln9401 [address] RoadDublin [place] [id number] AST [Catalytic activity/Vol] 14 U/L Normal 0-40 [facility]; [facility] Work Phone: Comment on above: PATIENT WAS FASTINGP ERFORMED BY: [facility] Bhsemg9938 [address] RoadDublin [place] [id number] Bilirubin [Mass/Vol] 0.3 mg/dL Normal 0.0-1.2 [facility]; [facility] Work Phone: Comment on above: PATIENT WAS FASTINGP ERFORMED BY: [facility] Cariuj8763 [address] RoadDublin [place] [id number] Calcium [Mass/Vol] 9.7 mg/dL Normal 8.7-10.3 [facility] Internal Medicine; [facility] Work Phone: Comment on above: PATIENT WAS FASTINGP ERFORMED BY: [facility] Ohqivm5210 [address]Dublin [place] [id number] Chloride [Moles/Vol] 101 mmol/L Normal 96-106 [facility]; [facility] Work Phone: Comment on above: PATIENT WAS FASTINGP ERFORMED BY: [facility] Dqowne4480 [address] RoadDublin [place] [id number] CO2 [Moles/Vol] 21 mmol/L Normal 20-29 [facility]; [facility] Work Phone: Comment on above: PATIENT WAS FASTINGP ERFORMED BY: NOHEMY Christine6370 [facility] [id number] Creatinine [Mass/Vol] 1.47 mg/dL Abnormal 0.57-1.00 Com prehensive Internal Medicine; [facility] Work Phone: Comment on above: PATIENT WAS FASTINGP ERFORMED BY: NOHEMY Alicea Qlhcvc7516 [facility] [id number] GFR/1.73 sq M.predicted among non-blacks MDRD (S/P/Bld) [Vol rate/Area] 37 mL/min/{1.73_m2} Abnormal Comprehens e Internal Medicine; [facility] Work Phone: Comment on above: PATIENT WAS FASTINGP ERFORMED BY: Tonie Tnnkjn2224 [facility] [id number] Globulin (S) [Mass/Vol] 3.0 g/dL Normal 1.5-4.5 [facility]; [facility] Work Phone: Comment on above: PATIENT WAS FASTINGP ERFORMED BY: NOHEMY Alicea [id number] [facility] [id number] Glucose [Mass/Vol] 96 mg/dL Normal 70-99 [facility]; [facility] Work Phone: Comment on above: PATIENT WAS FASTINGP ERFORMED BY: NOHEMY [facility] [id number] [facility] [id number] Potassium [Moles/Vol] 4.6 mmol/L Normal 3.5-5.2 [facility] prehensive Internal Medicine; [facility] Work Phone: Comment on above: PATIENT WAS FASTINGP ERFORMED BY: [facility] [id number] [facility] [id number] Protein [Mass/Vol] 7.2 g/dL Normal 6.0-8.5 [facility] Work Phone: Comment on above: PATIENT WAS FASTINGP ERFORMED BY: NOHEMY [facility] [id number] [address]Dublin [place] [id number] Sodium [Moles/Vol] 136 mmol/L Normal 134-144 [facility]; [facility] Work Phone: Comment on above: PATIENT WAS FASTINGP ERFORMED BY: NOHEMY [facility] [id number] [address]Dublin [place] [id number] Urea nitrogen [Mass/Vol] 39 mg/dL Abnormal 8- [facility]; [facility] Work Phone: Comment on above: PATIENT WAS FASTINGP ERFORMED BY: NOHEMY Labcosimona [id number] [address]Dublin [place] [id number] Urea nitrogen/Creatinine [Mass ratio] 27 mg/mg Normal 12- [facility]; [facility] Work Phone: Comment on above: PATIENT WAS FASTINGP ERFORMED BY: NOHEMY Labsterling [id number] [address]Dublin [place] [id number] MICROALBUMINOrdered By: Syst em Cbx Operator on 12-21-2021 Albumin DL <= 20 mg/L (U) [Mass/Vol] 11.2 ug/mL Normal [facility]; [facility] Work Phone: Comment on above: PATIENT NOT FASTINGP ERFORMED BY: NOHEMY Labsterling [id number] [address]Dublin [place] [id number] Albumin/Creatinine (U) [Mass ratio] 73 {mg/g_creat} Abnormal 0-29 [facility]; [facility] Work Phone: Comment on above: Normal: 0 - 29 Moder ately increased: 30 - 300 Severely increased: >300 PATIENT NOT FASTINGP ERFORMED BY: NOHEMY [facility] [id number] [address]Dublin [place] [id number] Creatinine (U) [Mass/Vol] 15.4 mg/dL Normal [facility]; [facility] Work Phone: Comment on above: PATIENT NOT FASTINGP ERFORMED BY: NOHEMY [facility] [id number] [address]Dublin [place] [id number] TSH (THYROID STIMULATING HOR ELISABETH) ([id number])Ordered By: Lpn Or Medical Assistant on 12-21-2021 TSH Qn 1.410 {uIU/mL} Normal 0.450-4.50 0 [facility]; [facility] Work Phone: Comment on above: PATIENT WAS FASTINGP ERFORMED BY: CB [facility] [id number] [address]Dublin [place] [id number] AMYLASE ([id number])Ordered By: Shelia ystem Cbx Operator on 12-01-2021 Amylase [Catalytic activity/Vol] 44 U/L Normal 31-110 [facility]; [facility] Work Phone: Comment on above: PATIENT NOT FASTINGP ERFORMED BY: CB [facility] [id number] [address]Dublin [place] [id number] C-REACTIVE PROTEIN ([id number])Or dered By: Lpn Or Medical Assistant on 12-01-2021 CRP [Mass/Vol] 42 mg/L Abnormal 0-10 [facility] Internal Medicine; [facility] Work Phone: Comment on above: PATIENT NOT FASTINGP ERFORMED BY: CB [facility] [id number] [address]Dublin [place] [id number] ESR-F (SED RATE ERYTHROCYTE - FEMALE) ([id number])Ordered By: Lpn Or Medical Assistant on 12-01-2021 ESR (Bld) [Velocity] 22 mm/h Normal 0-40 [facility] rehensive Internal Medicine; [facility] Work Phone: Comment on above: PATIENT NOT FASTINGP ERFORMED BY: CB [facility] [id number] [address]Dublin [place] [id number] LIPASE ([id number])Ordered By: Rancho stem Cbx Operator on 12-01-2021 Lipase [Catalytic activity/Vol] 79 U/L Normal 14-85 [facility]; [facility] Work Phone: Comment on above: PATIENT NOT FASTINGP ERFORMED BY: CB [facility] [id number] [address]Dublin [place] [id number] MAGNESIUM ([id number])Ordered By: Lpn Or Medical Assistant on 11-23-2021 Magnesium [Mass/Vol] 2.0 mg/dL Normal 1.6-2.3 [facility] rehensive Internal Medicine; [facility] Work Phone: Comment on above: PATIENT NOT FASTINGP ERFORMED BY: NOHEMY [facility] [id number] [facility] [id number] POTASSIUM SERUM ([id number])Order ed By: Lpn Or Medical Assistant on 11-23-2021 Potassium [Moles/Vol] 5.0 mmol/L Normal 3.5-5.2 [facility] prehensive Internal Medicine; [facility] Work Phone: Comment on above: PATIENT NOT FASTINGP ERFORMED BY: NOHEMY [facility] [id number] [address] ShedWorxKindred Hospital [facility] [id number] Atypical perinuclear antineu trophil cytoplasmic antibodies measurementon 10-14-2021 Neutrophil cytoplasmic Ab.perinuclear.atypic al IF (S) [Titer] <1:20 titer Neg:<1:20 [facility] Work Phone: Comment on above: The atypical pANCA p attern has been observed in asignificant percentage of patients with ulcerative colitis,primary sclerosing cholangitis and autoimmune hepatitis. Basophil percentageon 2021 Basophil percentage 2.9 mg/dL 2.5-4.9 [facility] Work Phone: Chloride [Moles/Vol] 106 mmol/L 98-107 [facility] Work Phone: Glucose [Mass/Vol] 103 mg/dL 74-106 [facility] Work Phone: Comment on above: Fasting Glucose resu lt from 100 to 125 mg/dL suggests IMPAIRED HOMEOSTASIS per A.D.A. criteria. Potassium [Moles/Vol] 4.2 mmol/L 3.5-5.1 [facility] Work Phone: Sodium [Moles/Vol] 141 mmol/L 136-145 [facility] Work Phone: WBC (Bld) [#/Vol] 5.8 10*3/uL 4.4-11.0 [facility] Work Phone: Blood erythrocytes count (nu mber/volume)on 10-14-2021 RBC (Bld) [#/Vol] 4.21 10*6/uL 4.2-5.4 [facility] Work Phone: Blood hemoglobin measurement (mass/volume)on 10-14-2021 Hemoglobin (Bld) [Mass/Vol] 12.6 g/dL 12.0-15.0 [facility] Work Phone: Blood platelet mean volumeon 10-14-2021 Platelet mean volume (Bld) [Entitic vol] 12.4 fL 6.2-12.0 [facility] Work Phone: Determination of erythrocyte mean corpuscular volume (MCV)on 10-14-2021 MCV (RBC) [Entitic vol] 94.8 fL 81-99 [facility] Work Phone: Hematocrit Auto (Bld) [Volum e fraction]on 10-14-2021 Hematocrit (Bld) [Volume fraction] 39.9 % 37-47 [facility] Work Phone: Laboratory - Chemistry and C hemistry - challengeon 10-14-2021 CO2 [Moles/Vol] 29.0 mmol/L 21.0-32.0 [facility] Work Phone: Urea nitrogen/Creatinine [Mass ratio] 24.3 mg/mg 10-20 [facility] Work Phone: Laboratory - Hematology and Cell countson 10-14-2021 Erythrocyte distribution width (RBC) [Entitic vol] 52.4 fL 35.1-43.9 [facility] Work Phone: Erythrocyte distribution width (RBC) [Ratio] 15.2 % 11.6-14.6 [facility] Work Phone: MCH (RBC) [Entitic mass] 29.9 pg 27.0-32.0 [facility] Work Phone: MCHC Auto (RBC) [Mass/Vol]on 10-14-2021 MCHC (RBC) [Mass/Vol] 31.6 g/dL 32-36 [facility] Work Phone: No Panel Informationon 10-14 Addendum Document Comment . [facility] Work Phone: Comment on above: The SPE pattern appe ars unremarkable. Evidence ofmonoclonal protein is not apparent. Nnzdf-9-Siygeqqwh 0.3 g/dL 0.0-0.4 [facility] Work Phone: Zbqkm-6-Hdqmedinw 0.7 g/dL 0.4-1.0 [facility] Work Phone: Estimated GFR (MDRD) Amer 47 mL/min >60 [facility] Work Phone: Comment on above: GFR Calc Estimated GFR (MDRD) Non-Af Amer 39 mL/min >60 [facility] Work Phone: Comment on above: Non- GFR Calc Gamma Globulins 1.3 g/dL 0.4-1.8 [facility] Work Phone: Parathyroid Hormone (Intact) 40.0 pg/mL 18.4-80.1 [facility] Work Phone: Vitamin D 25-Hydroxy 53.3 ng/mL [facility] Work Phone: Comment on above: Vitamin D 25(OH) Sta tus Range Deficiency <20 ng/mL (50nmol/L) Insufficiency 20 - 30 ng/mL (50 - 75 nmol/L) Sufficiency 30 - 100 ng/mL (75 - 250 nmol/L) Toxicity >100 ng/mL (>250 nmol/L) Platelets bldon 10-14-2021 Platelets (Bld) [#/Vol] 302 10*3/uL 150-450 [facility] Work Phone: Protein Fractions Elph [Inte rp]on 10-14-2021 Protein Fractions [Interp] Comment . [facility] Work Phone: Comment on above: Protein electrophore sis scan will follow via computer,mail, or radar scientist delivery. Serum DNA double strand anti body assay (units/volume)on 10-14-2021 DNA double strand Ab Qn (S) [IU]/mL 0-9 [facility] Work Phone: Comment on above: Negative <5 Equivoca l 5 - 9 Positive >9Performed at: [facility] [id number] [place], [place] [id number] Director: Willian Oquendo PhD, Phone: [phone] Serum albumin to globulin ra ruth by protein electrophoresison 10-14-2021 Albumin/Globulin Elph [Mass ratio] 1.1 0.7-1.7 [facility] Work Phone: Serum classic neutrophil cyt oplasmic antibody assay (units/volume)on 10-14-2021 Neutrophil cytoplasmic Ab.classic Qn (S) <1:20 titer Neg:<1:20 [facility] Work Phone: Serum globulin measurement ( mass/volume)on 10-14-2021 Globulin (S) [Mass/Vol] 3.5 g/dL 2.2-3.9 [facility] Work Phone: Serum or plasma albumin diamond urement (mass/volume)on 10-14-2021 Albumin [Mass/Vol] 3.8 g/dL 2.9-4.4 [facility] Work Phone: Serum or plasma beta globuli n measurement by electrophoresis (mass/volume)on 10-14-2021 Beta globulin Elph [Mass/Vol] 1.3 g/dL 0.7-1.3 [facility] Work Phone: Serum or plasma calcium diamond urement (mass/volume)on 10-14-2021 Calcium [Mass/Vol] 9.8 mg/dL 8.5-10.1 [facility] Work Phone: Serum or plasma complement C 3 measurement (mass/volume)on 10-14-2021 Complement C3 [Mass/Vol] 186 mg/dL 82-167 [facility] Work Phone: Comment on above: Performed at: [facility] [id number] [place] [address] [id number] Director: Willian Oquendo PhD, Phone: [phone] Serum or plasma complement C 4 measurement (mass/volume)on 10-14-2021 Complement C4 [Mass/Vol] 30 mg/dL 12-38 [facility] Work Phone: Serum or plasma creatinine m easurement (mass/volume)on 10-14-2021 Creatinine [Mass/Vol] 1.40 mg/dL 0.55-1.02 [facility] Work Phone: Comment on above: The validity of the calculated GFR & GFRAA in patients over 70 years has not been determined. Clinical correlation is essential. Serum or plasma urea nitroge n measurement (mass/volume)on 10-14-2021 Urea nitrogen [Mass/Vol] 34 mg/dL 7-18 [facility] Work Phone: Serum perinuclear neutrophil cytoplasmic antibody titer by immunofluorescenceon 10-14-2021 Neutrophil cytoplasmic Ab.perinuclear IF (S) [Titer] <1:20 titer Neg:<1:20 [facility] Work Phone: Comment on above: The presence of posi tive fluorescence exhibiting P-ANCA orC- ANCA patterns alone is not specific for the diagnosis ofWegener's Granulomatosis (WG) or microscopic polyangiitis.Decisions about treatment should not be based solely onANCA IFA results. The [employer]CA [employer] Consensusrecommends follow up testing of positive sera with both ME-3 and MPO-ANCA enzyme immunoassays. As many as 5% serumsamples are positive only by EIA. Ref. AM J Clin [id number];111:507-513. Total protein bloodon 2021 Protein [Mass/Vol] 7.3 g/dL 6.0-8.5 [facility] Work Phone: Urine creatinine measurement (mass/volume)on 10-14-2021 Creatinine (U) [Mass/Vol] 25.30 mg/dL NO RANGE EST. [facility] Work Phone: Urine protein measurement (m ass/volume)on 10-14-2021 Protein (U) [Mass/Vol] mg/dL 0.0-11.8 [facility] Work Phone: Urine protein/creatinine mas s ratioon 10-14-2021 Protein/Creatinine (U) [Mass ratio] TNP [facility] Work Phone: Comment on above: Test not performed Basophil percentageon 2021 Chloride [Moles/Vol] 106 mmol/L 98-107 [facility] Work Phone: Glucose [Mass/Vol] 91 mg/dL 74-106 [facility] Work Phone: Potassium [Moles/Vol] 3.4 mmol/L 3.5-5.1 [facility] Work Phone: Sodium [Moles/Vol] 140 mmol/L 136-145 [facility] Work Phone: Laboratory - Chemistry and C hemistry - challengeon 09-30-2021 CO2 [Moles/Vol] 26.0 mmol/L 21.0-32.0 [facility] Work Phone: Urea nitrogen/Creatinine [Mass ratio] 23.2 mg/mg 10-20 [facility] Work Phone: No Panel Informationon 09-30 Estimated GFR (MDRD) Amer 46 mL/min >60 [facility] Work Phone: Comment on above: GFR Calc Estimated GFR (MDRD) Non-Af Amer 38 mL/min >60 [facility] Work Phone: Comment on above: Non- GFR Calc Serum or plasma calcium diamond urement (mass/volume)on 09-30-2021 Calcium [Mass/Vol] 9.5 mg/dL 8.5-10.1 [facility] Work Phone: Serum or plasma creatinine m easurement (mass/volume)on 09-30-2021 Creatinine [Mass/Vol] 1.42 mg/dL 0.55-1.02 [facility] Work Phone: Comment on above: The validity of the calculated GFR & GFRAA in patients over 70 years has not been determined. Clinical correlation is essential. Serum or plasma urea nitroge n measurement (mass/volume)on 09-30-2021 Urea nitrogen [Mass/Vol] 33 mg/dL 7-18 [facility] Work Phone: Thin prep Papanicolaou smear with manual screeningon 09-30-2021 Thin prep Papanicolaou smear with manual screening 8 5-15 [facility] Work Phone: Absolute lymphocyte counton 09-23-2021 Lymphocytes Auto (Unsp spec) [#/Vol] 1.65 10*3/uL 0.83-4.51 [facility] Work Phone: Basophil percentageon 2021 Basophils/100 WBC (Bld) 0.3 % 0-1 [facility] Work Phone: Chloride [Moles/Vol] 113 mmol/L 98-107 [facility] Work Phone: Eosinophils/100 WBC (Bld) 2.6 % 0-5 [facility] Work Phone: Glucose [Mass/Vol] 84 mg/dL 74-106 [facility] Work Phone: Neutrophils (Bld) [#/Vol] 3.4 10*3/uL 2.0-7.7 [facility] Work Phone: Neutrophils/100 WBC (Bld) 57.5 % 47-70 [facility] Work Phone: Potassium [Moles/Vol] 4.8 mmol/L 3.5-5.1 [facility] Work Phone: Sodium [Moles/Vol] 139 mmol/L 136-145 [facility] Work Phone: WBC (Bld) [#/Vol] 5.9 10*3/uL 4.4-11.0 [facility] Work Phone: Blood erythrocytes count (nu mber/volume)on 09-23-2021 RBC (Bld) [#/Vol] 3.97 10*6/uL 4.2-5.4 [facility] Work Phone: Blood hemoglobin measurement (mass/volume)on 09-23-2021 Hemoglobin (Bld) [Mass/Vol] 12.2 g/dL 12.0-15.0 [facility] Work Phone: Blood lymphocytes/100 leukoc yteson 09-23-2021 Lymphocytes/100 WBC (Bld) 28.1 % 19-41 [facility] Work Phone: Blood monocytes/100 leukocyt eson 09-23-2021 Monocytes/100 WBC (Bld) 11.2 % 0-10 [facility] Work Phone: Blood platelet mean volumeon 09-23-2021 Platelet mean volume (Bld) [Entitic vol] 11.8 fL 6.2-12.0 [facility] Work Phone: Determination of erythrocyte mean corpuscular volume (MCV)on 09-23-2021 MCV (RBC) [Entitic vol] 96.7 fL 81-99 [facility] Work Phone: Hematocrit Auto (Bld) [Volum e fraction]on 09-23-2021 Hematocrit (Bld) [Volume fraction] 38.4 % 37-47 [facility] Work Phone: Laboratory - Chemistry and C hemistry - challengeon 09-23-2021 CO2 [Moles/Vol] 23.0 mmol/L 21.0-32.0 [facility] Work Phone: Urea nitrogen/Creatinine [Mass ratio] 27.1 mg/mg 10-20 [facility] Work Phone: Laboratory - Hematology and Cell countson 09-23-2021 Erythrocyte distribution width (RBC) [Entitic vol] 53.9 fL 35.1-43.9 [facility] Work Phone: Erythrocyte distribution width (RBC) [Ratio] 15.2 % 11.6-14.6 [facility] Work Phone: Immature granulocytes/100 WBC (Bld) 0.300 % 0.0-0.9 [facility] Work Phone: Comment on above: IG% - Immature Granu locytes (promyelocytes, myelocytes and metamyelocytes) > 1% indicates that a LEFT SHIFT is Present. MCH (RBC) [Entitic mass] 30.7 pg 27.0-32.0 [facility] Work Phone: Nucleated RBC/100 WBC (Bld) [Ratio] 0 % 0-5 [facility] Work Phone: MCHC Auto (RBC) [Mass/Vol]on 09-23-2021 MCHC (RBC) [Mass/Vol] 31.8 g/dL 32-36 [facility] Work Phone: No Panel Informationon 09-23 Estimated Creatinine Clearance Calc 27.41 ml/min [facility] Work Phone: Estimated GFR (MDRD) Amer 39 mL/min >60 [facility] Work Phone: Comment on above: GFR Calc Estimated GFR (MDRD) Non-Af Amer 32 mL/min >60 [facility] Work Phone: Comment on above: Non- GFR Calc Platelets bldon 09-23-2021 Platelets (Bld) [#/Vol] 281 10*3/uL 150-450 [facility] Work Phone: Serum or plasma calcium diamond urement (mass/volume)on 09-23-2021 Calcium [Mass/Vol] 8.6 mg/dL 8.5-10.1 [facility] Work Phone: Serum or plasma creatinine m easurement (mass/volume)on 09-23-2021 Creatinine [Mass/Vol] 1.66 mg/dL 0.55-1.02 [facility] Work Phone: Comment on above: The validity of the calculated GFR & GFRAA in patients over 70 years has not been determined. Clinical correlation is essential. Serum or plasma urea nitroge n measurement (mass/volume)on 09-23-2021 Urea nitrogen [Mass/Vol] 45 mg/dL 7-18 [facility] Work Phone: Thin prep Papanicolaou smear with manual screeningon 09-23-2021 Thin prep Papanicolaou smear with manual screening 3 5-15 [facility] Work Phone: Absolute lymphocyte counton 09-21-2021 Lymphocytes Auto (Unsp spec) [#/Vol] 2.12 10*3/uL 0.83-4.51 [facility] Work Phone: Basophil percentageon 2021 Basophils/100 WBC (Bld) 0.3 % 0-1 [facility] Work Phone: Chloride [Moles/Vol] 104 mmol/L 98-107 [facility] Work Phone: Eosinophils/100 WBC (Bld) 1.1 % 0-5 [facility] Work Phone: Glucose [Mass/Vol] 99 mg/dL 74-106 [facility] Work Phone: Neutrophils (Bld) [#/Vol] 6.5 10*3/uL 2.0-7.7 [facility] Work Phone: Neutrophils/100 WBC (Bld) 66.2 % 47-70 [facility] Work Phone: Potassium [Moles/Vol] 4.5 mmol/L 3.5-5.1 [facility] Work Phone: Sodium [Moles/Vol] 134 mmol/L 136-145 [facility] Work Phone: WBC (Bld) [#/Vol] 9.9 10*3/uL 4.4-11.0 [facility] Work Phone: Blood erythrocytes count (nu mber/volume)on 09-21-2021 RBC (Bld) [#/Vol] 4.51 10*6/uL 4.2-5.4 [facility] Work Phone: Blood hemoglobin measurement (mass/volume)on 09-21-2021 Hemoglobin (Bld) [Mass/Vol] 13.9 g/dL 12.0-15.0 [facility] Work Phone: Blood lymphocytes/100 leukoc yteson 09-21-2021 Lymphocytes/100 WBC (Bld) 21.5 % 19-41 [facility] Work Phone: Blood monocytes/100 leukocyt eson 09-21-2021 Monocytes/100 WBC (Bld) 10.5 % 0-10 [facility] Work Phone: Blood platelet mean volumeon 09-21-2021 Platelet mean volume (Bld) [Entitic vol] 11.8 fL 6.2-12.0 [facility] Work Phone: Determination of erythrocyte mean corpuscular volume (MCV)on 09-21-2021 MCV (RBC) [Entitic vol] 92.9 fL 81-99 [facility] Work Phone: Hematocrit Auto (Bld) [Volum e fraction]on 09-21-2021 Hematocrit (Bld) [Volume fraction] 41.9 % 37-47 [facility] Work Phone: Laboratory - Chemistry and C hemistry - challengeon 09-21-2021 CO2 [Moles/Vol] 25.0 mmol/L 21.0-32.0 [facility] Work Phone: Urea nitrogen/Creatinine [Mass ratio] 26.2 mg/mg 10-20 [facility] Work Phone: Laboratory - Hematology and Cell countson 09-21-2021 Erythrocyte distribution width (RBC) [Entitic vol] 51.0 fL 35.1-43.9 [facility] Work Phone: Erythrocyte distribution width (RBC) [Ratio] 14.9 % 11.6-14.6 [facility] Work Phone: Immature granulocytes/100 WBC (Bld) 0.400 % 0.0-0.9 [facility] Work Phone: Comment on above: IG% - Immature Granu locytes (promyelocytes, myelocytes and metamyelocytes) > 1% indicates that a LEFT SHIFT is Present. MCH (RBC) [Entitic mass] 30.8 pg 27.0-32.0 [facility] Work Phone: Nucleated RBC/100 WBC (Bld) [Ratio] 0 % 0-5 [facility] Work Phone: MCHC Auto (RBC) [Mass/Vol]on 09-21-2021 MCHC (RBC) [Mass/Vol] 33.2 g/dL 32-36 [facility] Work Phone: No Panel Informationon 09-21 Estimated Creatinine Clearance Calc 18.35 ml/min [facility] Work Phone: Estimated GFR (MDRD) Amer 24 mL/min >60 [facility] Work Phone: Comment on above: GFR Calc Estimated GFR (MDRD) Non-Af Amer 20 mL/min >60 [facility] Work Phone: Comment on above: Non- GFR Calc Platelets bldon 09-21-2021 Platelets (Bld) [#/Vol] 319 10*3/uL 150-450 [facility] Work Phone: Serum or plasma calcium diamond urement (mass/volume)on 09-21-2021 Calcium [Mass/Vol] 9.5 mg/dL 8.5-10.1 [facility] Work Phone: Serum or plasma creatinine m easurement (mass/volume)on 09-21-2021 Creatinine [Mass/Vol] 2.48 mg/dL 0.55-1.02 [facility] Work Phone: Comment on above: The validity of the calculated GFR & GFRAA in patients over 70 years has not been determined. Clinical correlation is essential. Serum or plasma urea nitroge n measurement (mass/volume)on 09-21-2021 Urea nitrogen [Mass/Vol] 65 mg/dL 7-18 [facility] Work Phone: Thin prep Papanicolaou smear with manual screeningon 09-21-2021 Thin prep Papanicolaou smear with manual screening 5 5-15 [facility] Work Phone: [place] ([id number])Ordered By: Lpn Or Medical Assistant on 09-15-2021 Bacteria identified Cx Nom (U) Final report Abnormal [facility]; [facility] Work Phone: Comment on above: PATIENT NOT FASTINGP ERFORMED BY: NOHEMY [employer] [id number] [facility] [id number] Information: SRC: Bacteria identified Cx Nom (U) ECV Abnormal [facility]; [facility] Work Phone: Comment on above: Escherichia coli, id entified by an automated biochemical system.Cefazolin <=4 ug/mLCefazolin with an TESFAYE <=16 predicts susceptibility to the oral agentscefaclor, cefdinir, cefpodoxime, cefprozil, cefuroxime, cephalexin,and loracarbef when used for therapy of uncomplicated urinary tractinfections due to E. coli, Klebsiella pneumoniae, and Proteusmirabilis.Greater than 100,000 colony forming units per mL S = Susceptible; I = Intermediate; R = Resistant P = Positive; N = Negative MICS are expressed in micrograms per mL Antibiotic RSLT#1 RSLT#2 RSLT#3 RSLT#4Amoxicillin/Clavulanic Acid SAmpicillin RCefepime SCeftriaxone SCefuroxime SCiprofloxacin RErtapenem SGentamicin RImipenem SLevofloxacin RMeropenem SNitrofurantoin SPiperacillin/Tazobactam STetracycline RTobramycin RTrimethoprim/Sulfa S PATIENT NOT FASTINGP ERFORMED BY: [facility] [id number] [facility] [id number] Information: SRC: Urinalysis, Office ([id number])Or dered By: Stacie Horta on 09-15-2021 Bilirubin Ql (U) Negative Normal Comprehe nsive Internal Medicine; [facility] Work Phone: Glucose Test strip (U) [Mass/Vol] Negative Normal [facility]; [facility] Work Phone: Hemoglobin Ql (U) Negative Normal Compreh ensive Internal Medicine; [facility] Work Phone: Ketones Ql (U) Negative Normal Comprehens sylvia [facility]; [facility] Work Phone: Leukocyte esterase Test strip Ql (U) Negative Normal [facility]; [facility] Work Phone: Nitrite Ql (U) Negative Normal Comprehens syl[facility]; [facility] Work Phone: pH (U) 6 [pH] Abnormal [facility]; [facility] Work Phone: Protein Ql (U) Negative Normal Comprehens sylvia [facility]; [facility] Work Phone: Specific gravity (U) [Rel density] 1.010 1 Normal [facility]; [facility] Work Phone: Urobilinogen (24H U) [Mass/Time] Normal Normal [facility]; [facility] Work Phone: INHOUSE COVID 19 (ONLY) NGUYEN Sheldon ([id number])Ordered By: Kristina Brandon on 08-24-2021 SARS-CoV-2 (COVID-19) RNA ISABELLA+probe Ql (Unsp spec) Positive Normal [facility]; [facility] Work Phone: Atypical perinuclear antineu trophil cytoplasmic antibodies measurementon 08-12-2021 Neutrophil cytoplasmic Ab.perinuclear.atypic al IF (S) [Titer] <1:20 titer Neg:<1:20 [facility] Work Phone: Comment on above: The atypical pANCA p attern has been observed in asignificant percentage of patients with ulcerative colitis,primary sclerosing cholangitis and autoimmune hepatitis. Basophil percentageon 2021 Basophil percentage 2.9 mg/dL 2.5-4.9 [place] [facility] Work Phone: Chloride [Moles/Vol] 105 mmol/L 98-107 [facility] Work Phone: Glucose [Mass/Vol] 84 mg/dL 74-106 [facility] Work Phone: Potassium [Moles/Vol] 3.9 mmol/L 3.5-5.1 Peña [facility] Work Phone: Sodium [Moles/Vol] 139 mmol/L 136-145 [facility] Work Phone: WBC (Bld) [#/Vol] 7.1 10*3/uL 4.4-11.0 [facility] Work Phone: Blood Glucose , Office ([phone])Ordered By: Ann-Marie Retana on 08-12-2021 Glucose Glucometer (BldC) [Moles/Vol] 116 1 Normal [facility]; [facility] Work Phone: Blood erythrocytes count (nu mber/volume)on 08-12-2021 RBC (Bld) [#/Vol] 3.92 10*6/uL 4.2-5.4 [facility] Work Phone: Blood hemoglobin measurement (mass/volume)on 08-12-2021 Hemoglobin (Bld) [Mass/Vol] 11.8 g/dL 12.0-15.0 [facility] Work Phone: Blood platelet mean volumeon 08-12-2021 Platelet mean volume (Bld) [Entitic vol] 12.1 fL 6.2-12.0 [facility] Work Phone: Determination of erythrocyte mean corpuscular volume (MCV)on 08-12-2021 MCV (RBC) [Entitic vol] 95.4 fL 81-99 [facility] Work Phone: Hematocrit Auto (Bld) [Volum e fraction]on 08-12-2021 Hematocrit (Bld) [Volume fraction] 37.4 % 37-47 [facility] Work Phone: Laboratory - Chemistry and C hemistry - challengeon 08-12-2021 Albumin [Mass/Vol] 3.8 g/dL 2.9-4.4 [facility] Work Phone: CO2 [Moles/Vol] 26.0 mmol/L 21.0-32.0 [facility] Work Phone: Urea nitrogen/Creatinine [Mass ratio] 26.6 mg/mg 10-20 [facility] Work Phone: Laboratory - Hematology and Cell countson 08-12-2021 Erythrocyte distribution width (RBC) [Entitic vol] 49.5 fL 35.1-43.9 [facility] Work Phone: Erythrocyte distribution width (RBC) [Ratio] 14.2 % 11.6-14.6 [facility] Work Phone: MCH (RBC) [Entitic mass] 30.1 pg 27.0-32.0 [facility] Work Phone: MCHC Auto (RBC) [Mass/Vol]on 08-12-2021 MCHC (RBC) [Mass/Vol] 31.6 g/dL 32-36 [facility] Work Phone: No Panel Informationon 08-12 Addendum Document Comment . [facility] Work Phone: Comment on above: The SPE pattern appe ars unremarkable. Evidence ofmonoclonal protein is not apparent. Imang-8-Moyfbntfy 0.3 g/dL 0.0-0.4 [facility] Work Phone: Ovgyk-9-Jcwiupcbm 0.7 g/dL 0.4-1.0 [facility] Work Phone: Estimated GFR (MDRD) Amer 47 mL/min >60 [facility] Work Phone: Comment on above: GFR Calc Estimated GFR (MDRD) Non-Af Amer 39 mL/min >60 [facility] Work Phone: Comment on above: Non- GFR Calc Gamma Globulins 1.3 g/dL 0.4-1.8 [facility] Work Phone: Parathyroid Hormone (Intact) 57.6 pg/mL 18.4-80.1 [facility] Work Phone: Vitamin D 25-Hydroxy 41.6 ng/mL [facility] Work Phone: Comment on above: Vitamin D 25(OH) Sta tus Range Deficiency <20 ng/mL (50nmol/L) Insufficiency 20 - 30 ng/mL (50 - 75 nmol/L) Sufficiency 30 - 100 ng/mL (75 - 250 nmol/L) Toxicity >100 ng/mL (>250 nmol/L) Platelets bldon 08-12-2021 Platelets (Bld) [#/Vol] 277 10*3/uL 150-450 [facility] Work Phone: Protein Fractions Elph [Inte rp]on 08-12-2021 Protein Fractions [Interp] Comment . [facility] Work Phone: Comment on above: Protein electrophore sis scan will follow via computer,mail, or radar scientist delivery. Serum DNA double strand anti body assay (units/volume)on 08-12-2021 DNA double strand Ab Qn (S) [IU]/mL 0-9 [facility] Work Phone: Comment on above: Negative <5 Equivoca l 5 - 9 Positive >9Performed at: [place] [id number] Director: Willian Oquendo PhD, Phone: [phone] Serum albumin to globulin ra ruth by protein electrophoresison 08-12-2021 Albumin/Globulin Elph [Mass ratio] 1.1 0.7-1.7 [facility] Work Phone: Serum classic neutrophil cyt oplasmic antibody assay (units/volume)on 08-12-2021 Neutrophil cytoplasmic Ab.classic Qn (S) <1:20 titer Neg:<1:20 [facility] Work Phone: Serum globulin measurement ( mass/volume)on 08-12-2021 Globulin (S) [Mass/Vol] 3.5 g/dL 2.2-3.9 [facility] Work Phone: Serum or plasma albumin diamond urement (mass/volume)on 08-12-2021 Albumin [Mass/Vol] 3.5 g/dL 3.2-5.0 [facility] Work Phone: Serum or plasma beta globuli n measurement by electrophoresis (mass/volume)on 08-12-2021 Beta globulin Elph [Mass/Vol] 1.2 g/dL 0.7-1.3 [facility] Work Phone: Serum or plasma calcium diamond urement (mass/volume)on 08-12-2021 Calcium [Mass/Vol] 9.2 mg/dL 8.5-10.1 [facility] Work Phone: Serum or plasma complement C 3 measurement (mass/volume)on 08-12-2021 Complement C3 [Mass/Vol] 178 mg/dL 82-167 [facility] Work Phone: Comment on above: Performed at: [facility] [employer] [address] [id number] Director: Willian Oquendo PhD, Phone: [phone] Serum or plasma complement C 4 measurement (mass/volume)on 08-12-2021 Complement C4 [Mass/Vol] 27 mg/dL 12-38 [facility] Work Phone: Serum or plasma creatinine m easurement (mass/volume)on 08-12-2021 Creatinine [Mass/Vol] 1.39 mg/dL 0.55-1.02 [facility] Work Phone: Comment on above: The validity of the calculated GFR & GFRAA in patients over 70 years has not been determined. Clinical correlation is essential. Serum or plasma urea nitroge n measurement (mass/volume)on 08-12-2021 Urea nitrogen [Mass/Vol] 37 mg/dL 7-18 [facility] Work Phone: Serum perinuclear neutrophil cytoplasmic antibody titer by immunofluorescenceon 08-12-2021 Neutrophil cytoplasmic Ab.perinuclear IF (S) [Titer] <1:20 titer Neg:<1:20 [facility] Work Phone: Comment on above: The presence of posi tive fluorescence exhibiting P-ANCA orC- ANCA patterns alone is not specific for the diagnosis ofWegener's Granulomatosis (WG) or microscopic polyangiitis.Decisions about treatment should not be based solely onANCA IFA results. The International ANCA Group Consensusrecommends follow up testing of positive sera with both ME-3 and MPO-ANCA enzyme immunoassays. As many as 5% serumsamples are positive only by EIA. Ref. AM J Clin Rpifml4149;111:507-513. Thin prep Papanicolaou smear with manual screeningon 08-12-2021 Thin prep Papanicolaou smear with manual screening See comment [facility] Work Phone: Comment on above: Result: Not Observed Total protein bloodon 2021 Protein [Mass/Vol] 7.3 g/dL 6.0-8.5 [facility] Work Phone: Urine creatinine measurement (mass/volume)on 08-12-2021 Creatinine (U) [Mass/Vol] 52.70 mg/dL NO RANGE EST. [facility] Work Phone: Urine protein measurement (m ass/volume)on 08-12-2021 Protein (U) [Mass/Vol] 11.1 mg/dL 0.0-11.8 [facility] Work Phone: Urine protein/creatinine mas s ratioon 08-12-2021 Protein/Creatinine (U) [Mass ratio] 211 mg/g CRE 0-200 [facility] Work Phone: CBC & PLATELETS (AUTO) ([phone])Ordered By: Lpn Or Medical Assistant on 05-07-2021 Erythrocyte distribution width (RBC) [Ratio] 13.0 % Normal 11.7-15.4 [facility]; [facility] Work Phone: Comment on above: 05-07-21; PATIENT NOT FASTINGPERFORMED BY: [employer]70 [employer] [facility] [id number] Hematocrit (Bld) [Volume fraction] 37.8 % Normal 34.0-46.6 [facility]; [facility] Work Phone: Comment on above: 05-07-21; PATIENT NOT FASTINGPERFORMED BY: [employer]70 [facility] [id number] Hemoglobin (Bld) [Mass/Vol] 12.6 g/dL Normal 11.1-15.9 [facility]; [facility] Work Phone: Comment on above: 05-07-21; PATIENT NOT FASTINGPERFORMED BY: el? RoadDublin [place] [id number] MCH (RBC) [Entitic mass] 30.5 pg Normal 26.6-33.0 [facility]; [facility] Work Phone: Comment on above: 05-07-21; PATIENT NOT FASTINGPERFORMED BY: CB [facility] [id number] [address]Dublin [place] [id number] MCHC (RBC) [Mass/Vol] 33.3 g/dL Normal 31.5-35.7 [facility]; [facility] Work Phone: Comment on above: 05-07-21; PATIENT NOT FASTINGPERFORMED BY: CB [facility] [id number] [address]Dublin [place] [id number] MCV (RBC) [Entitic vol] 92 fL Normal 79-97 [facility]; [facility] Work Phone: Comment on above: 05-07-21; PATIENT NOT FASTINGPERFORMED BY: CB [facility] [id number] [address] RoadDublin [place] [id number] Platelets (Bld) [#/Vol] 296 10*3/uL Normal 150-450 [facility]; [facility] Work Phone: Comment on above: 05-07-21; PATIENT NOT FASTINGPERFORMED BY: CB [facility] [id number] [address] RoadDublin [place] [id number] RBC (Bld) [#/Vol] 4.13 10*6/uL Normal 3.77-5.28 [facility]; [facility] Work Phone: Comment on above: 05-07-21; PATIENT NOT FASTINGPERFORMED BY: CB [facility] Qiymcj6061 [address]Dublin [place] [id number] WBC (Bld) [#/Vol] 6.4 10*3/uL Normal 3.4-10.8 [facility]; [facility] Work Phone: Comment on above: 05-07-21; PATIENT NOT FASTINGPERFORMED BY: CB [facility] Vlajpp9827 [address]Dublin [place] [id number] HGB A1C ([id number])Ordered By: S ystem Cbx Operator on 05-07-2021 HbA1c (Bld) [Mass fraction] 5.9 % Abnormal 4.8-5.6 [facility]; [facility] Work Phone: Comment on above: . Prediabetes: 5.7 - 6.4 Diabetes: >6.4 Glycemic control for adults with diabetes: <7.0 05-07-21; PATIENT NOT FASTINGPERFORMED BY: CB [facility] [id number] [address] RoadDublin [place] [id number] Metabolic Panel, Comprehensi ve ([id number])Ordered By: Lpn Or Medical Assistant on 05-07-2021 Albumin [Mass/Vol] 4.4 g/dL Normal 3.7-4.7 [facility]; [facility] Work Phone: Comment on above: 05-07-21; PATIENT NOT FASTINGPERFORMED BY: CB [facility] Bodkbn9406 [address]Dublin [place] [id number] Albumin/Globulin [Mass ratio] 1.5 {ratio} Normal 1.2-2.2 [facility]; [facility] Work Phone: Comment on above: 05-07-21; PATIENT NOT FASTINGPERFORMED BY: CB [facility] Usexrf8628 [address] RoadDublin [place] [id number] ALP [Catalytic activity/Vol] 42 U/L Abnormal 44-121 [facility]; [facility] Work Phone: Comment on above: 05-07-21; PATIENT NOT FASTINGPERFORMED BY: CB [facility] Okvajn4705 [address]Dublin [place] [id number] ALT [Catalytic activity/Vol] 12 U/L Normal 0-32 [facility]; [facility] Work Phone: Comment on above: 05-07-21; PATIENT NOT FASTINGPERFORMED BY: CB [facility] Mgxzab7421 [address] RoadDublin [place] [id number] AST [Catalytic activity/Vol] 10 U/L Normal 0-40 [facility]; [facility] Work Phone: Comment on above: 05-07-21; PATIENT NOT FASTINGPERFORMED BY: CB [facility] Holtjg5962 [address]Dublin [place] [id number] Bilirubin [Mass/Vol] 0.3 mg/dL Normal 0.0-1.2 Comp rehensive Internal Medicine; [facility] Work Phone: Comment on above: 05-07-21; PATIENT NOT FASTINGPERFORMED BY: CB [facility] Exvuce7766 [address]Dublin [place] [id number] Calcium [Mass/Vol] 9.9 mg/dL Normal 8.7-10.3 [facility]; [facility] Work Phone: Comment on above: 05-07-21; PATIENT NOT FASTINGPERFORMED BY: CB [facility] Lnwwwu6985 [address] RoadDublin [place] [id number] Chloride [Moles/Vol] 103 mmol/L Normal 96-106 [facility] rehensive Internal Medicine; [facility] Work Phone: Comment on above: 05-07-21; PATIENT NOT FASTINGPERFORMED BY: CB [facility] [id number] [address] RoadDublin [place] [id number] CO2 [Moles/Vol] 20 mmol/L Normal 20-29 Com[facility]; [facility] Work Phone: Comment on above: 05-07-21; PATIENT NOT FASTINGPERFORMED BY: CB [facility] Qwolwl3218 [address]Dublin [place] [id number] Creatinine [Mass/Vol] 1.44 mg/dL Abnormal 0.57-1.00 [facility]; [facility] Work Phone: Comment on above: 05-07-21; PATIENT NOT FASTINGPERFORMED BY: CB [facility] Bsjifn7296 [address]Dublin [place] [id number] GFR/1.73 sq M.predicted among non-blacks MDRD (S/P/Bld) [Vol rate/Area] 38 mL/min/{1.73_m2} Abnormal Comprehensiv e Internal Medicine; [facility] Work Phone: Comment on above: 05-07-21; PATIENT NOT FASTINGPERFORMED BY: CB [facility] Ceetct3321 [address]Dublin [place] [id number] Globulin (S) [Mass/Vol] 3.0 g/dL Normal 1.5-4.5 [facility]; [facility] Work Phone: Comment on above: 05-07-21; PATIENT NOT FASTINGPERFORMED BY: CB [facility] Lbbmdr8843 [address]Dublin [place] [id number] Glucose [Mass/Vol] 87 mg/dL Normal 65-99 [facility]; [facility] Work Phone: Comment on above: 05-07-21; PATIENT NOT FASTINGPERFORMED BY: CB [facility] [id number] [address]Dublin [place] [id number] Potassium [Moles/Vol] 4.6 mmol/L Normal 3.5-5.[address] [facility] Internal [facility]; [facility] Work Phone: Comment on above: 05-07-21; PATIENT NOT FASTINGPERFORMED BY: CB [facility] [id number] [address]Dublin [place] [id number] Protein [Mass/Vol] 7.4 g/dL Normal 6.0-8.5 [facility]; [facility] Work Phone: Comment on above: 05-07-21; PATIENT NOT FASTINGPERFORMED BY: CB [facility] Oftbpk3134 [address]Dublin [place] [id number] Sodium [Moles/Vol] 138 mmol/L Normal 134-144 [facility]; [facility] Work Phone: Comment on above: 05-07-21; PATIENT NOT FASTINGPERFORMED BY: CB [facility] Ahkwja9041 [address]Dublin [place] [id number] Urea nitrogen [Mass/Vol] 38 mg/dL Abnormal 8-27 [facility]; [facility] Work Phone: Comment on above: 05-07-21; PATIENT NOT FASTINGPERFORMED BY: CB [facility] Cankwm9346 [address]Dublin [place] [id number] Urea nitrogen/Creatinine [Mass ratio] 26 mg/mg Normal 12-28 [facility]; [facility] Work Phone: Comment on above: 05-07-21; PATIENT NOT FASTINGPERFORMED BY: NOHEMY [employer] [id number] K[facility] LabCentral Carolina Hospital [id number] TSH (THYROID STIMULATING HOR ELISABETH) ([id number])Ordered By: Lpn Or Medical Assistant on 05-07-2021 TSH Qn 1.480 {uIU/mL} Normal 0.450-4.50 0 [facility]; [facility] Work Phone: Comment on above: 05-07-21; PATIENT NOT FASTINGPERFORMED BY: NOHEMY [id number] [facility] LabCentral Carolina Hospital [id number] URINE DAVID CULTURE (JASON COL COUNT) ([id number])Ordered By: Lpn Or Medical Assistant on 04-07-2021 Bacteria identified Cx Nom (U) Final report Abnormal [facility]; [facility] Work Phone: Comment on above: PATIENT NOT FASTINGP ERFORMED BY: [employer] ShedWorxKindred Hospital - [facility] [id number] Information: SRC:UC Bacteria identified Cx Nom (U) Escherichia coli Abnormal [facility]; [facility] Work Phone: Comment on above: Greater than 100,000 colony forming units per mLCefazolin <=4 ug/mLCefazolin with an TESFAYE <=16 predicts susceptibility to the oral agentscefaclor, cefdinir, cefpodoxime, cefprozil, cefuroxime, cephalexin,and loracarbef when used for therapy of uncomplicated urinary tractinfections due to E. coli, Klebsiella pneumoniae, and Proteusmirabilis. PATIENT NOT FASTINGP ERFORMED BY: [employer] Kwgaua9080 EnjectKindred Hospital - Greensboro [id number] Information: SRC:UC Other Antibiotic [Susc] MIHEAD Normal [facility]; [facility] Work Phone: Comment on above: S = Susceptible; I = Intermediate; R = Resistant P = Positive; N = Negative MICS are expressed in micrograms per mL Antibiotic RSLT#1 RSLT#2 RSLT#3 RSLT#4Amoxicillin/Clavulanic Acid SAmpicillin RCefepime SCeftriaxone SCefuroxime SCiprofloxacin RErtapenem SGentamicin RImipenem SLevofloxacin RMeropenem SNitrofurantoin SPiperacillin/Tazobactam STetracycline RTobramycin RTrimethoprim/Sulfa R PATIENT NOT FASTINGP ERFORMED BY: NOHEMY [facility] [id number] [address] RoadKindred Hospital [facility] [id number] Information: SRC:ISABELLA Urinalysis, Office ([id number])Or dered By: Aster Malcolm on 04-07-2021 Bilirubin Ql (U) Negative Normal Comprehe nsive Internal Medicine; [facility] Work Phone: Glucose Test strip (U) [Mass/Vol] Negative Normal [facility]; [facility] Work Phone: Hemoglobin Ql (U) Negative Normal Compreh ensive Internal Medicine; [facility] Work Phone: Ketones Ql (U) Negative Normal Comprehens sylvia [facility]; [facility] Work Phone: Leukocyte esterase Test strip Ql (U) Negative Normal [facility]; [facility] Work Phone: Nitrite Ql (U) Negative Normal Comprehens sylvia [facility]; [facility] Work Phone: pH (U) 6.0 [pH] Normal [facility]; [facility] Work Phone: Protein Ql (U) Negative Normal Comprehens sylvia [facility]; [facility] Work Phone: Specific gravity (U) [Rel density] 1.015 1 Normal [facility]; [facility] Work Phone: Urobilinogen (24H U) [Mass/Time] Normal Normal [facility]; [facility] Work Phone: 2018 Novel Coronavirus (COVI D-19), ISABELLA ([id number])Ordered By: Lpn Or Medical Assistant on 03-18-20212018 Novel Coronavirus (COVID-19), ISABELLA ([id number]) Not detected Normal [facility]; [facility] Work Phone: Comment on above: This nucleic acid am plification test was developed and its performancecharacteristics determined by [employer]. Nucleic acidamplification tests include RT-PCR and TMA. This test has not beenFDA cleared or approved. This test has been authorized by FDA underan Emergency Use Authorization (EUA). This test is only authorizedfor the duration of time the declaration that circumstances existjustifying the authorization of the emergency use of in vitrodiagnostic tests for detection of SARS-CoV-2 virus and/or diagnosisof COVID-19 infection under section 564(b)(1) of the Act, 21 U.S.C.360bbb-3(b) (1), unless the authorization is terminated or revokedsooner.When diagnostic testing is negative, the possibility of a falsenegative result should be considered in the context of a patient'srecent exposures and the presence of clinical signs and symptomsconsistent with COVID-19. An individual without symptoms of COVID-19and who is not shedding SARS-CoV-2 virus would expect to have anegative (not detected) result in this assay. our office; PATIENT NOT FASTINGPERFORMED BY: [facility] [id number] COVID 19 (ONLY) RAPID ([id number] )Ordered By: Killian Oliveira on 03-18-2021 SARS-CoV-2 (COVID-19) RNA ISABELLA+probe Ql (Unsp spec) Negative Normal [facility]; [facility] Work Phone: Comment on above: our office Blood Glucose , Office ([phone])Ordered By: Killian Oliveira on 02-06-2021 Glucose Glucometer (BldC) [Moles/Vol] 119 1 Normal [facility]; [facility] Work Phone: HgA1C , Office ([phone])Ordere d By: Killian Oliveira on 02-06-2021 HbA1c (Bld) [Mass fraction] 5.9 % Normal 4.6 - 7.1 [facility]; [facility] Work Phone: CALCIFEDIOL ([id number])Ordered B y: Lpn Or Medical Assistant on 12-26-2020 25-hydroxyvitamin D [Mass/Vol] 33.4 ng/mL Normal 30.0-100.0 [facility]; [facility] Work Phone: Comment on above: Vitamin D deficiency has been defined by the [place] ofMedicine and an Endocrine Society practice guideline as alevel of serum 25-OH vitamin D less than 20 ng/mL (1,2).The Endocrine Society went on to further define vitamin Dinsufficiency as a level between 21 and 29 ng/mL (2).1. IOM ([place] of Medicine). 2010. Dietary reference intakes for calcium and D. [place]: The National Academies Press.2. Darrel MF, [place], [place], et al. Evaluation, treatment, and prevention of vitamin D deficiency: an Endocrine Society clinical practice guideline. JCEM. 2010; 96(7):1911-30. PATIENT WAS FASTINGP ERFORMED BY: TunePatrol6[address] [place] [id number] CBC W/AUTO DIFF WBC (06238)O rdered By: Lpn Or Medical Assistant on 12-26-2020 Basophils (Bld) [#/Vol] 0.0 10*3/uL Normal 0.0-0.2 [facility]; [facility] Work Phone: Comment on above: PATIENT WAS FASTINGP ERFORMED BY: TunePatrol[address] [place] [id number] Basophils/100 WBC (Bld) 1 % Normal [facility]; [facility] Work Phone: Comment on above: PATIENT WAS FASTINGP ERFORMED BY: TunePatrol[address] Bom[address]bl[address] [place] [id number] Eosinophils (Bld) [#/Vol] 0.2 10*3/uL Normal 0.0-0.4 [facility]; [facility] Work Phone: Comment on above: PATIENT WAS FASTINGP ERFORMED BY: PanXlin[address] ShedWorxDublin [place] [id number] Eosinophils/100 WBC (Bld) 3 % Normal [facility]; [facility] Work Phone: Comment on above: PATIENT WAS FASTINGP ERFORMED BY: NOHEMY [facility] Fwcxos8284 [address] RoadDublin [place] [id number] Erythrocyte distribution width (RBC) [Ratio] 12.8 % Normal 11.7-15.4 [facility]; [facility] Work Phone: Comment on above: PATIENT WAS FASTINGP ERFORMED BY: CB [facility] Vosemn7769 [address] RoadDublin [place] [id number] Hematocrit (Bld) [Volume fraction] 37.5 % Normal 34.0-46.6 [facility]; [facility] Work Phone: Comment on above: PATIENT WAS FASTINGP ERFORMED BY: CB [facility] Mrpzff9660 [address] RoadDublin [place] [id number] Hemoglobin (Bld) [Mass/Vol] 11.8 g/dL Normal 11.1-15.9 [facility]; [facility] Work Phone: Comment on above: PATIENT WAS FASTINGP ERFORMED BY: [facility] Aozabn5577 [address] RoadDublin [place] [id number] Immature granulocytes (Bld) [#/Vol] 0.0 10*3/uL Normal 0.0-0.1 [facility]; [facility] Work Phone: Comment on above: PATIENT WAS FASTINGP ERFORMED BY: [facility] Ityrdb4391 [address] RoadDublin [place] [id number] Immature granulocytes/100 WBC (Bld) 0 % Normal [facility]; [facility] Work Phone: Comment on above: PATIENT WAS FASTINGP ERFORMED BY: CB [facility] Bafnvn4142 [address] RoadDublin [place] [id number] Lymphocytes (Bld) [#/Vol] 1.8 10*3/uL Normal 0.7-3.1 [facility]; [facility] Work Phone: Comment on above: PATIENT WAS FASTINGP ERFORMED BY: CB [facility] Aqgpdv9776 [address] RoadDublin [place] [id number] Lymphocytes/100 WBC (Bld) 33 % Normal [facility]; [facility] Work Phone: Comment on above: PATIENT WAS FASTINGP ERFORMED BY: CB [facility] Wkeoad9729 [address] RoadDublin [place] [id number] MCH (RBC) [Entitic mass] 29.3 pg Normal 26.6-33.0 [facility]; [facility] Work Phone: Comment on above: PATIENT WAS FASTINGP ERFORMED BY: CB [facility] Lmbqce3242 [address] RoadDublin [place] [id number] MCHC (RBC) [Mass/Vol] 31.5 g/dL Normal 31.5-35.7 [facility] prehensive Internal Medicine; [facility] Work Phone: Comment on above: PATIENT WAS FASTINGP ERFORMED BY: CB [facility] Uhfhfr9450 [address] RoadDublin [place] [id number] MCV (RBC) [Entitic vol] 93 fL Normal 79-97 [facility]; [facility] Work Phone: Comment on above: PATIENT WAS FASTINGP ERFORMED BY: CB [facility] Pmxaym2202 [address] RoadDublin [place] [id number] Monocytes (Bld) [#/Vol] 0.6 10*3/uL Normal 0.1-0.9 [facility]; [facility] Work Phone: Comment on above: PATIENT WAS FASTINGP ERFORMED BY: CB [facility] Mzdchf5587 [address] RoadDublin [place] [id number] Monocytes/100 WBC (Bld) 11 % Normal [facility]; [facility] Work Phone: Comment on above: PATIENT WAS FASTINGP ERFORMED BY: CB [facility] Fyfcpz6821 [address] RoadDublin [place] [id number] Neutrophils (Bld) [#/Vol] 2.8 10*3/uL Normal 1.4-7.0 [facility]; [facility] Work Phone: Comment on above: PATIENT WAS FASTINGP ERFORMED BY: CB [facility] Llrlnt8781 [address] RoadDublin [place] [id number] Neutrophils/100 WBC (Bld) 52 % Normal [facility]; [facility] Work Phone: Comment on above: PATIENT WAS FASTINGP ERFORMED BY: NOHEMY Christine[address] [facility] [id number] Platelets (Bld) [#/Vol] 307 10*3/uL Normal 150-450 [facility]; [facility] Work Phone: Comment on above: PATIENT WAS FASTINGP ERFORMED BY: NOHEMY Alicea Ycemsp5512 [facility] [id number] RBC (Bld) [#/Vol] 4.03 10*6/uL Normal 3.77-5.28 Compr [facility] Internal Medicine; [facility] Work Phone: Comment on above: PATIENT WAS FASTINGP ERFORMED BY: NOHEMY Tonie Frhdry9633 [facility] [id number] WBC (Bld) [#/Vol] 5.5 10*3/uL Normal 3.4-10.8 [facility] Medicine; [facility] Work Phone: Comment on above: PATIENT WAS FASTINGP ERFORMED BY: NOHEMY Tonie Zqraor9922 [facility] [id number] HEPATITIS C ANTIBODY (66371) Ordered By: Lpn Or Medical Assistant on 12-26-2020 HCV Ab Signal/Cutoff IA [Rel units/Vol] {ratio} Normal 0.0-0.9 [facility]; [facility] Work Phone: Comment on above: Negative: < 0.8 Inde terminate: 0.8 - 0.9 Positive: > 0.9 . The CDC recommends that a positive HCV antibody result be followed up with a HCV Nucleic Acid Amplification test (111999). PATIENT WAS FASTINGP ERFORMED BY: NOHEMY Alicea Syyrhp8334 [facility] [id number] LIPID PANEL (54206)Ordered B y: Lpn Or Medical Assistant on 12-26-2020 Cholesterol [Mass/Vol] 161 mg/dL Normal 100-199 [facility]; [facility] Work Phone: Comment on above: PATIENT WAS FASTINGP ERFORMED BY: NOHEMY Jimeneslin6370 [address]Dublin [place] [id number] Cholesterol in HDL [Mass/Vol] 42 mg/dL Normal [facility]; [facility] Work Phone: Comment on above: PATIENT WAS FASTINGP ERFORMED BY: NOHEMY Christine6[address]Dublin [place] [id number] Triglyceride [Mass/Vol] 99 mg/dL Normal 0-149 [facility]; [facility] Work Phone: Comment on above: PATIENT WAS FASTINGP ERFORMED BY: NOHEMY LabSterling JimenesDfjeqc4483 [address] RoadDublin [place] [id number] LIPID PANEL (47574) 18 mg/dL Normal 5-40 Compr ehensive Internal Medicine; [facility] Work Phone: Comment on above: PATIENT WAS FASTINGP ERFORMED BY: NOHEMY Jimeneslin6[address]Dublin [place] [id number] LIPID PANEL (24064) 101 mg/dL Abnormal 0-99 Compr ehensive Internal Medicine; [facility] Work Phone: Comment on above: PATIENT WAS FASTINGP ERFORMED BY: NOHEMY Jimeneslin[address] [facility]bl[facility] [place] [id number] LIPID PANEL (07032) 2.4 {ratio} Normal 0.0-3.2 Comp rehensive Internal Medicine; [facility] Work Phone: Comment on above: LDL/HDL Ratio Men Wo men 1/2 Avg.Risk 1.0 1.5 Avg.Risk 3.6 3.2 2X Avg.Risk 6.2 5.0 3X Avg.Risk 8.0 6.1 PATIENT WAS FASTINGP ERFORMED BY: NOHEMY LabCosimona Yawsaf[address] [facility]bl[facility] [place] [id number] MAGNESIUM (28111)Ordered By: Lpn Or Medical Assistant on 12-26-2020 Magnesium [Mass/Vol] 2.0 mg/dL Normal 1.6-2.3 Comp rehensive Internal Medicine; [facility] Work Phone: Comment on above: PATIENT WAS FASTINGP ERFORMED BY: CB [facility] Xdypgt7517 [address] RoadDublin [place] [id number] METABOLIC PANEL, COMPREHENSI VE (50165)Ordered By: Lpn Or Medical Assistant on 12-26-2020 Albumin [Mass/Vol] 4.2 g/dL Normal 3.7-4.7 [facility] Internal Medicine; [facility] Work Phone: Comment on above: PATIENT WAS FASTINGP ERFORMED BY: CB [facility] Zbefcb7288 [address] RoadDublin [place] [id number] Albumin/Globulin [Mass ratio] 1.4 {ratio} Normal 1.2-2.2 [facility]; [facility] Work Phone: Comment on above: PATIENT WAS FASTINGP ERFORMED BY: CB [facility] Bnoxnt4244 [address] RoadDublin [place] [id number] ALP [Catalytic activity/Vol] 44 U/L Normal 44-121 [facility]; [facility] Work Phone: Comment on above: Please note refere nce interval change PATIENT WAS FASTINGP ERFORMED BY: CB [facility] Ujqcpv9062 [address] RoadDublin [place] [id number] ALT [Catalytic activity/Vol] 13 U/L Normal 0-32 [facility]; [facility] Work Phone: Comment on above: PATIENT WAS FASTINGP ERFORMED BY: [facility] Oyerdt0640 [address] RoadDublin [place] [id number] AST [Catalytic activity/Vol] 13 U/L Normal 0-40 [facility]; [facility] Work Phone: Comment on above: PATIENT WAS FASTINGP ERFORMED BY: CB [facility] Shejir4452 [address] RoadDublin [place] [id number] Bilirubin [Mass/Vol] 0.4 mg/dL Normal 0.0-1.2 [facility] Internal Medicine; [facility] Work Phone: Comment on above: PATIENT WAS FASTINGP ERFORMED BY: CB [facility] Diesto8498 [address] RoadDublin [place] [id number] Calcium [Mass/Vol] 9.7 mg/dL Normal 8.7-10.3 [facility] Internal Medicine; [facility] Work Phone: Comment on above: PATIENT WAS FASTINGP ERFORMED BY: NOHEMY Christine6370 Rupal [facility] [id number] Chloride [Moles/Vol] 104 mmol/L Normal 96-106 Comp rehensive Internal Medicine; [facility] Work Phone: Comment on above: PATIENT WAS FASTINGP ERFORMED BY: NOHEMY [facility]Oz[facility] [id number] CO2 [Moles/Vol] 23 mmol/L Normal 20-29 [facility]; [facility] Work Phone: Comment on above: PATIENT WAS FASTINGP ERFORMED BY: NOHEMY Christine6370 [facility]mithOz[facility] [id number] Creatinine [Mass/Vol] 1.45 mg/dL Abnormal 0.57-1.00 Com prehensive Internal Medicine; [facility] Work Phone: Comment on above: PATIENT WAS FASTINGP ERFORMED BY: NOHEMY Christine6370 [facility] [id number] GFR/1.73 sq M.predicted among blacks CKD-EPI (S/P/Bld) [Vol rate/Area] 41 mL/min/1.73 Abnormal [facility]; [facility] Work Phone: Comment on above: In accordance with recommendations from the NKF-ASN Task force, [facility] is in the process of updating its eGFR calculation to the 2020 CKD-EPI creatinine equation that estimates kidney function without a race variable. PATIENT WAS FASTINGP ERFORMED BY: NOHEMY Christine6370 [facility] [id number] GFR/1.73 sq M.predicted among non-blacks CKD-EPI (S/P/Bld) [Vol rate/Area] 35 mL/min/1.73 Abnormal [facility]; [facility] Work Phone: Comment on above: PATIENT WAS FASTINGP ERFORMED BY: NOHEMY Jimeneslin6[address] [facility] [id number] Globulin (S) [Mass/Vol] 2.9 g/dL Normal 1.5-4.5 [facility] Internal Medicine; [facility] Work Phone: Comment on above: PATIENT WAS FASTINGP ERFORMED BY: NOHEMY LabSterling JimenesVkdxxm3960 [address] RoadDublin [place] [id number] Glucose [Mass/Vol] 92 mg/dL Normal 65-99 [facility] Internal Medicine; [facility] Work Phone: Comment on above: PATIENT WAS FASTINGP ERFORMED BY: NOHEMY [facility] Iawewl2206 [address] RoadDublin [place] [id number] Potassium [Moles/Vol] 4.9 mmol/L Normal 3.5-5.[address] [facility] Internal Medicine; [facility] Work Phone: Comment on above: PATIENT WAS FASTINGP ERFORMED BY: NOHEMY LabSaint [facility] Zdluyb3131 [address] RoadDublin [place] [id number] Protein [Mass/Vol] 7.1 g/dL Normal 6.0-8.5 [facility] Internal Medicine; [facility] Work Phone: Comment on above: PATIENT WAS FASTINGP ERFORMED BY: NOHEMY [facility] Nxddud3479 [address] RoadDublin [place] [id number] Sodium [Moles/Vol] 140 mmol/L Normal 134-144 [facility] Internal Medicine; [facility] Work Phone: Comment on above: PATIENT WAS FASTINGP ERFORMED BY: NOHEMY [facility] Nclejo2588 [address] RoadDublin [place] [id number] Urea nitrogen [Mass/Vol] 34 mg/dL Abnormal 8-27 [facility]; [facility] Work Phone: Comment on above: PATIENT WAS FASTINGP ERFORMED BY: NOHEMY [facility] Vcfsze9710 [address] RoadDublin [place] [id number] Urea nitrogen/Creatinine [Mass ratio] 23 mg/mg Normal 12-28 [facility]; [facility] Work Phone: Comment on above: PATIENT WAS FASTINGP ERFORMED BY: NOHEMY [facility] Bfwxyh9445 [address] RoadDublin [place] [id number] MICROALBUMINOrdered By: Syst em Cbx Operator on 12-26-2020 Albumin DL <= 20 mg/L (U) [Mass/Vol] 13.6 ug/mL Normal [facility]; [facility] Work Phone: Comment on above: PATIENT WAS FASTINGP ERFORMED BY: NOHEMY [facility] Vsshkd9123 [address] RoadDublin [place] [id number] Albumin/Creatinine (U) [Mass ratio] 26 {mg/g_creat} Normal 0-29 [facility]; [facility] Work Phone: Comment on above: Normal: 0 - 29 Moder ately increased: 30 - 300 Severely increased: >300 PATIENT WAS FASTINGP ERFORMED BY: NOHEMY LabSterling Liogav7370 [address] RoadDublin [place] [id number] Creatinine (U) [Mass/Vol] 53.1 mg/dL Normal [facility]; [facility] Work Phone: Comment on above: PATIENT WAS FASTINGP ERFORMED BY: NOHEMY LabSaint [facility] Gftqyw4131 [address] RoadDublin [place] [id number] PARATHORMONE ([id number])Ordered By: Lpn Or Medical Assistant on 12-26-2020 Parathyrin.intact [Mass/Vol] 31 pg/mL Normal 15-65 [facility]; [facility] Work Phone: Comment on above: PATIENT WAS FASTINGP ERFORMED BY: NOHEMY LabSaint [facility] Idpbfw3752 [address] RoadDublin [place] [id number] PHOSPHORUS ([id number])Ordered By : Lpn Or Medical Assistant on 12-26-2020 Phosphate [Mass/Vol] 3.5 mg/dL Normal 3.0-4.3 Comp [facility]; [facility] Work Phone: Comment on above: PATIENT WAS FASTINGP ERFORMED BY: NOHEMY [facility] Lmeiya2134 [address] RoadDublin [place] [id number] URINALYSIS, W/ MICRO ([id number]) Ordered By: Lpn Or Medical Assistant on 12-26-2020 Appearance (U) Clear Normal Comprehens sylvia Internal Medicine; [facility] Work Phone: Comment on above: PATIENT WAS FASTINGP ERFORMED BY: NOHEMY [facility] Xyqhpp0938 [address] RoadDublin [place] [id number] Bilirubin Ql (U) Negative Normal Comprehe nsive Internal Medicine; [facility] Work Phone: Comment on above: PATIENT WAS FASTINGP ERFORMED BY: NOHEMY [facility] Pxpybb8606 [address] RoadDublin [place] [id number] Color (U) Yellow Normal [facility]; [facility] Work Phone: Comment on above: PATIENT WAS FASTINGP ERFORMED BY: NOHEMY [facility] Uvvvky8009 [address] RoadDublin [place] [id number] Glucose Ql (U) Negative Normal Comprehens sylvia Internal Medicine; [facility] Work Phone: Comment on above: PATIENT WAS FASTINGP ERFORMED BY: NOHEMY [facility] Geofad8328 [address] RoadDublin [place] [id number] Hemoglobin Ql (U) Negative Normal Compreh ensive Internal Medicine; [facility] Work Phone: Comment on above: PATIENT WAS FASTINGP ERFORMED BY: NOHEMY [facility] Lmkolv2972 [address] RoadDublin [place] [id number] Ketones Ql (U) Negative Normal Comprehens sylvia [facility]; [facility] Work Phone: Comment on above: PATIENT WAS FASTINGP ERFORMED BY: NOHEMY [facility] Vidvji6300 [address] RoadDublin [place] [id number] Leukocyte esterase Test strip Ql (U) Trace Abnormal [facility]; [facility] Work Phone: Comment on above: PATIENT WAS FASTINGP ERFORMED BY: NOHEMY [facility] Hmmcmd8781 [address] RoadDublin [place] [id number] Microscopic observation LM Nom (Urine sed) See below: Normal [facility]; [facility] Work Phone: Comment on above: Microscopic was jeremy cated and was performed. PATIENT WAS FASTINGP ERFORMED BY: NOHEMY [facility] Uuipln4932 [address] RoadDublin [place] [id number] Nitrite Ql (U) Negative Normal Comprehens sylvia Internal Medicine; [facility] Work Phone: Comment on above: PATIENT WAS FASTINGP ERFORMED BY: NOHEMY [facility] Xqjfdo[address] [facility]in [place] [id number] pH (U) 6.5 [pH] Normal 5.0-7.5 [facility]; [facility] Work Phone: Comment on above: PATIENT WAS FASTINGP ERFORMED BY: NOHEMY [facility] Ddbalu2534 [address] [facility] [id number] Protein Ql (U) Negative Normal Comprehens sylvia Internal Medicine; [facility] Work Phone: Comment on above: PATIENT WAS FASTINGP ERFORMED BY: NOHEMY [facility] Ssciaw5605 [facility] [id number] Specific gravity (U) [Rel density] 1.012 1 Normal 1.005-1.03 0 [facility]; [facility] Work Phone: Comment on above: PATIENT WAS FASTINGP ERFORMED BY: NOHEMY [facility] Eogpcd7428 [facility] [id number] Urobilinogen (U) [Mass/Vol] 0.2 mg/dL Normal 0.2-1.0 [facility]; [facility] Work Phone: Comment on above: PATIENT WAS FASTINGP ERFORMED BY: NOHEMY LabJac Btldsd8745 [facility] [id number] Blood Glucose , Office (8296 2)on 07-15-2020 Glucose Glucometer (BldC) [Moles/Vol] 104 1 Normal [facility]; [facility] Work Phone: CBC, Platelets & Auto Diff ( 33407)Ordered By: Lpn Or Medical Assistant on 07-15-2020 Basophils (Bld) [#/Vol] 0.0 10*3/uL Normal 0.0-0.2 [facility]; [facility] Work Phone: Comment on above: PATIENT NOT FASTINGP ERFORMED BY: NOHEMY [facility] Jlbwwm48[address] [facility] [id number] Basophils/100 WBC (Bld) 0 % Normal [facility]; [facility] Work Phone: Comment on above: PATIENT NOT FASTINGP ERFORMED BY: CB [facility] Qoaidb8779 [address] RoadDublin [place] [id number] Eosinophils (Bld) [#/Vol] 0.2 10*3/uL Normal 0.0-0.4 [facility]; [facility] Work Phone: Comment on above: PATIENT NOT FASTINGP ERFORMED BY: CB [facility] Hdwtvx0886 [address] RoadDublin [place] [id number] Eosinophils/100 WBC (Bld) 3 % Normal [facility]; [facility] Work Phone: Comment on above: PATIENT NOT FASTINGP ERFORMED BY: CB [facility] Dlgzxc9330 [address] RoadDublin [place] [id number] Erythrocyte distribution width (RBC) [Ratio] 13.3 % Normal 11.7-15.4 [facility]; [facility] Work Phone: Comment on above: PATIENT NOT FASTINGP ERFORMED BY: CB [facility] Tmgabo4600 [address] RoadDublin [place] [id number] Hematocrit (Bld) [Volume fraction] 37.8 % Normal 34.0-46.6 [facility]; [facility] Work Phone: Comment on above: PATIENT NOT FASTINGP ERFORMED BY: CB [facility] Wqiteu2563 [address] RoadDublin [place] [id number] Hemoglobin (Bld) [Mass/Vol] 12.1 g/dL Normal 11.1-15.9 [facility]; [facility] Work Phone: Comment on above: PATIENT NOT FASTINGP ERFORMED BY: CB [facility] Ufcvlm4194 [address] RoadDublin [place] [id number] Immature granulocytes (Bld) [#/Vol] 0.0 10*3/uL Normal 0.0-0.1 [facility]; [facility] Work Phone: Comment on above: PATIENT NOT FASTINGP ERFORMED BY: CB [facility] Uicfjp4563 [address] RoadDublin [place] [id number] Immature granulocytes/100 WBC (Bld) 0 % Normal [facility]; [facility] Work Phone: Comment on above: PATIENT NOT FASTINGP ERFORMED BY: NOHEMY LabCosimona ChristinePxaeon0659 [address] RoadDublin [place] [id number] Lymphocytes (Bld) [#/Vol] 2.3 10*3/uL Normal 0.7-3.1 [facility]; [facility] Work Phone: Comment on above: PATIENT NOT FASTINGP ERFORMED BY: CB [facility] Iyaoyv3616 [address] RoadDublin [place] [id number] Lymphocytes/100 WBC (Bld) 30 % Normal [facility]; [facility] Work Phone: Comment on above: PATIENT NOT FASTINGP ERFORMED BY: NOHEMY Christine[address] [facility]in [place] [id number] MCH (RBC) [Entitic mass] 30.4 pg Normal 26.6-33.0 [facility]; [facility] Work Phone: Comment on above: PATIENT NOT FASTINGP ERFORMED BY: NOHEMY [facility] Ijxkti9494 [address] RoadDorothea Dix Hospitalin [place] [id number] MCHC (RBC) [Mass/Vol] 32.0 g/dL Normal 31.5-35.7 [facility]; [facility] Work Phone: Comment on above: PATIENT NOT FASTINGP ERFORMED BY: NOHEMY [facility] Rvuacc9495 [address] [facility]blin [place] [id number] MCV (RBC) [Entitic vol] 95 fL Normal 79-97 [facility]; [facility] Work Phone: Comment on above: PATIENT NOT FASTINGP ERFORMED BY: CB [facility] Ujssiw1510 [address] RoadDublin [place] [id number] Monocytes (Bld) [#/Vol] 0.8 10*3/uL Normal 0.1-0.9 [facility]; [facility] Work Phone: Comment on above: PATIENT NOT FASTINGP ERFORMED BY: CB [facility] Fwwhfp1320 [address] RoadDublin [place] [id number] Monocytes/100 WBC (Bld) 10 % Normal [facility]; [facility] Work Phone: Comment on above: PATIENT NOT FASTINGP ERFORMED BY: NOHEMY LabCosimona ChristinePfiwfx4261 [address] RoadDublin [place] [id number] Neutrophils (Bld) [#/Vol] 4.4 10*3/uL Normal 1.4-7.0 [facility]; [facility] Work Phone: Comment on above: PATIENT NOT FASTINGP ERFORMED BY: CB [facility] Aeomrh7003 [address] RoadDublin [place] [id number] Neutrophils/100 WBC (Bld) 57 % Normal [facility]; [facility] Work Phone: Comment on above: PATIENT NOT FASTINGP ERFORMED BY: NOHEMY LabCosimona JimenesGkdikn7243 [address] RoadDublin [place] [id number] Platelets (Bld) [#/Vol] 358 10*3/uL Normal 150-450 [facility]; [facility] Work Phone: Comment on above: PATIENT NOT FASTINGP ERFORMED BY: CB [facility] Lqakvp0270 [address] RoadDublin [place] [id number] RBC (Bld) [#/Vol] 3.98 10*6/uL Normal 3.77-5.28 Compr ensive Internal Medicine; [facility] Work Phone: Comment on above: PATIENT NOT FASTINGP ERFORMED BY: CB [facility] Dtsboh5911 [address] RoadDublin [place] [id number] WBC (Bld) [#/Vol] 7.8 10*3/uL Normal 3.4-10.8 Compre [facility] Internal Medicine; [facility] Work Phone: Comment on above: PATIENT NOT FASTINGP ERFORMED BY: CB [facility] Vqrvnz9914 [address] RoadDublin [place] [id number] HgA1C , Office (64243)on HbA1c (Bld) [Mass fraction] 5.5 % Normal 4.6 - 7.1 [facility]; [facility] Work Phone: Metabolic Panel, Comprehensi ve ([id number])Ordered By: Lpn Or Medical Assistant on 07-15-2020 Albumin [Mass/Vol] 4.5 g/dL Normal 3.7-4.7 [facility]; [facility] Work Phone: Comment on above: PATIENT NOT FASTINGP ERFORMED BY: CB [facility] [id number] [address] RoadDublin [place] [id number] Albumin/Globulin [Mass ratio] 1.5 {ratio} Normal 1.2-2.2 [facility]; [facility] Work Phone: Comment on above: PATIENT NOT FASTINGP ERFORMED BY: CB [facility] [id number] [address] RoadDublin [place] [id number] ALP [Catalytic activity/Vol] 51 U/L Normal 48-121 [facility]; [facility] Work Phone: Comment on above: Please note refere nce interval change PATIENT NOT FASTINGP ERFORMED BY: CB [facility] [id number] [address] RoadDublin [place] [id number] ALT [Catalytic activity/Vol] 9 U/L Normal 0-32 [facility]; [facility] Work Phone: Comment on above: PATIENT NOT FASTINGP ERFORMED BY: CB [facility] [id number] [address] RoadDublin [place] [id number] AST [Catalytic activity/Vol] 11 U/L Normal 0-40 [facility]; [facility] Work Phone: Comment on above: PATIENT NOT FASTINGP ERFORMED BY: CB [facility] [id number] [address] RoadDublin [place] [id number] Bilirubin [Mass/Vol] 0.2 mg/dL Normal 0.0-1.2 [facility]; [facility] Work Phone: Comment on above: PATIENT NOT FASTINGP ERFORMED BY: CB [facility] [id number] [address]Dublin [place] [id number] Calcium [Mass/Vol] 10.0 mg/dL Normal 8.7-10.3 [facility]; [facility] Work Phone: Comment on above: PATIENT NOT FASTINGP ERFORMED BY: [facility] [id number] [address] [facility] [id number] Chloride [Moles/Vol] 105 mmol/L Normal 96-106 Comp rehensive [facility] Medicine; [facility] Work Phone: Comment on above: PATIENT NOT FASTINGP ERFORMED BY: [facility] [id number] [address] [facility] [id number] CO2 [Moles/Vol] 21 mmol/L Normal 20-29 [facility]; [facility] Work Phone: Comment on above: PATIENT NOT FASTINGP ERFORMED BY: [facility] [id number] [facility] [id number] Creatinine [Mass/Vol] 1.33 mg/dL Abnormal 0.57-1.00 [facility] prehensive Internal Medicine; [facility] Work Phone: Comment on above: PATIENT NOT FASTINGP ERFORMED BY: [facility] Ophyep9689 [facility] [id number] GFR/1.73 sq M.predicted among blacks CKD-EPI (S/P/Bld) [Vol rate/Area] 45 mL/min/1.73 Abnormal [facility]; [facility] Work Phone: Comment on above: [facility] currently reports eGFR in compliance with the current recommendations of the National Kidney Foundation. [facility] will update reporting as new guidelines are published from the NKF-ASN Task force. PATIENT NOT FASTINGP ERFORMED BY: [facility]CoL[facility] CountyXkcbbv3518 [facility] [id number] GFR/1.73 sq M.predicted among non-blacks CKD-EPI (S/P/Bld) [Vol rate/Area] 39 mL/min/1.73 Abnormal [facility]; [facility] Work Phone: Comment on above: PATIENT NOT FASTINGP ERFORMED BY: [facility] [id number] [facility] [id number] Globulin (S) [Mass/Vol] 3.0 g/dL Normal 1.5-4.5 [facility]; [facility] Work Phone: Comment on above: PATIENT NOT FASTINGP ERFORMED BY: CB [facility] [id number] [address] RoadDublin [place] [id number] Glucose [Mass/Vol] 82 mg/dL Normal 65-99 [facility] Internal Medicine; [facility] Work Phone: Comment on above: PATIENT NOT FASTINGP ERFORMED BY: CB [facility] [id number] [address] RoadDublin [place] [id number] Potassium [Moles/Vol] 5.4 mmol/L Abnormal 3.5-5.[address] [facility] Internal Medicine; [facility] Work Phone: Comment on above: PATIENT NOT FASTINGP ERFORMED BY: CB [facility] Jrknjp5034 [address] RoadDublin [place] [id number] Protein [Mass/Vol] 7.5 g/dL Normal 6.0-8.5 [facility] Internal Medicine; [facility] Work Phone: Comment on above: PATIENT NOT FASTINGP ERFORMED BY: CB [facility] [id number] [address] RoadDublin [place] [id number] Sodium [Moles/Vol] 141 mmol/L Normal 134-144 [facility]; [facility] Work Phone: Comment on above: PATIENT NOT FASTINGP ERFORMED BY: CB [facility] [id number] [address] RoadDublin [place] [id number] Urea nitrogen [Mass/Vol] 26 mg/dL Normal 8-27 [facility] Internal Medicine; [facility] Work Phone: Comment on above: PATIENT NOT FASTINGP ERFORMED BY: CB [facility] [id number] [address] RoadDublin [place] [id number] Urea nitrogen/Creatinine [Mass ratio] 20 mg/mg Normal 12-28 [facility] Internal Medicine; [facility] Work Phone: Comment on above: PATIENT NOT FASTINGP ERFORMED BY: CB [facility] [id number] [address] RoadDublin [place] [id number] Urinalysis, Office ([id number])on 07-15-2020 Bilirubin Ql (U) Negative Normal Comprehe nsive Internal Medicine; [facility] Work Phone: Glucose Test strip (U) [Mass/Vol] Negative Normal [facility]; [facility] Work Phone: Hemoglobin Ql (U) Negative Normal Compreh ensive [facility] Medicine; [facility] Work Phone: Ketones Ql (U) Negative Normal Comprehens sylvia [facility]; [facility] Work Phone: Leukocyte esterase Test strip Ql (U) Negative Normal [facility]; [facility] Work Phone: Nitrite Ql (U) Negative Normal Comprehens sy[facility]; [facility] Work Phone: pH (U) 6 [pH] Abnormal [facility]; [facility] Work Phone: Protein Ql (U) Negative Normal Comprehens sylvia [facility]; [facility] Work Phone: Specific gravity (U) [Rel density] 1.015 1 Normal [facility]; [facility] Work Phone: Urobilinogen (24H U) [Mass/Time] Normal Normal [facility]; [facility] Work Phone: Final Surgical Pathology Rep elida 06-04-2020 Final Surgical Pathology Report . Pathology Reports Accession: Collected Date/Time: Received Date/Time: Pathologist: [id number] 05/30/2020 12:08 EDT 06/02/2020 09:04 EDT MD REBECCA GRAF Final Surgical Pathology Report DIAGNOSIS: LEFT FEMORAL HEAD, JOINT ARTHROPLASTY - - FOCAL CHANGES CONSISTENT WITH RECENT FRACTURE SITE. - CORTICAL THINNING CONSISTENT WITH OSTEOPOROSIS. COMMENT: AO - D# - [id number] CLINICAL INFORMATION: Procedure: PARTIAL HIP ARTHROPLASTY Preoperative diagnosis: LEFT FEMUR FRACTURE Postoperative diagnosis: SAME SPECIMEN: A LEFT FEMORAL HEAD GROSS DESCRIPTION: A. Received in formalin, labeled with the patients name, Case #[id number], and left femoral head Dimensions/description-pr edominantly round 4.5 x 3.5 cm femoral head surgical margin- red, irregular, jagged, hemorrhagic into the yellow fatty bone marrow. articular surface- lee-red, smooth Cut surfaces- yellow trabecular bone with no discreet lesions grossly identified RS-1 following decalcification Dictated by FLIP GARCIA MICROSCOPIC DESCRIPTION: Slides reviewed. Electronically Signed by Pathology Report verified by [facility] Electronically signed by REBECCA GRAF MD Sign out Date: 06/04/2020 16:19 Performing Lab: [id number] [place] [address] Normal [facility] ([place]) Comment on above: Performed By: #### C BC ADIFF, ANEU #### [place] [address] #### BMP, GFR #### [address] [address] .Auto Diffon 05-31-2020 Basophil, Absolute 0.00 10 3/mcL Normal 0.00-0.19 [facility] ([place]) Comment on above: Performed By: #### C BC ADIFF, ANEU #### [place] [address] #### BMP, GFR #### [address] [address] Basophils/100 WBC (Bld) 0.1 % Normal 0.0-2.5 [facility] ([place]) Comment on above: Performed By: #### C BC, ADIFF, ANEU #### [place] [address] #### BMP, GFR #### [address] [address] Eosinophil, Absolute 0.00 10 3/mcL Normal 0.00-0.40 A [facility] ([place]) Comment on above: Performed By: #### C BC, ADIFF, ANEU #### [place] [address] #### BMP, GFR #### [address] [address] Eosinophils/100 WBC (Bld) 0.3 % Normal 0.0-7.0 [facility] ([place]) Comment on above: Performed By: #### C BC, ADIFF, ANEU #### [address] [address] #### BMP, GFR #### [address] [address] Lymphocyte, Absolute 1.40 10 3/mcL Normal 0.77-3.85 [facility] ([place]) Comment on above: Performed By: #### C BC, ADIFF, ANEU #### [address] [address] #### BMP, GFR #### [address] [address] Lymphocytes/100 WBC (Bld) 10.6 % Normal 10.0-50.0 [facility] ([place]) Comment on above: Performed By: #### C BC, ADIFF, ANEU #### [address] [address] #### BMP, GFR #### [address] [address] Monocyte, Absolute 0.70 10 3/mcL Normal 0.15-1.00 [facility] ([place]) Comment on above: Performed By: #### C BC, ADIFF, ANEU #### [address] [address] #### BMP, GFR #### [address] [address] Monocytes/100 WBC (Bld) 5.5 % Normal 1.7-13.0 [facility] ([place]) Comment on above: Performed By: #### C BC, ADIFF, ANEU #### [address] [address] #### BMP, GFR #### [address] [address] Neutrophils/100 WBC (Bld) 83.5 % High 37.0-80.0 [facility] ([place]) Comment on above: Performed By: #### C BC, ADIFF, ANEU #### [address] [address] #### BMP, GFR #### [address] [address] .GFRon 05-31-2020 GFR Non- 32 ml/min/1.73sqm Normal [facility] ([place]) Comment on above: Result Comment: GFR Population mean for , Non- Americans Ages 20-29 = 116 mL/min/1.73 sq.m. Ages 30-39 = 107 mL/min/1.73 sq.m. Ages 40-49 = 99 mL/min/1.73 sq.m. Ages 50-59 = 93 mL/min/1.73 sq.m. Ages 60-69 = 85 mL/min/1.73 sq.m. Ages 70+ = 75 mL/min/1.73 sq.m. Chronic Kidney Disease: Less than 60 mL/min/1.73 square meters End Stage Renal Disease: Less than 15 mL/min/1.73 square meters Performed By: #### C BCEVERTON, ANEU #### [address] [address] #### BMP, GFR #### [place] [address] GFR 38 ml/min/1.73sqm Normal [facility] ([place]) Comment on above: Result Comment: GFR Population mean for , Non- Americans Ages 20-29 = 116 mL/min/1.73 sq.m. Ages 30-39 = 107 mL/min/1.73 sq.m. Ages 40-49 = 99 mL/min/1.73 sq.m. Ages 50-59 = 93 mL/min/1.73 sq.m. Ages 60-69 = 85 mL/min/1.73 sq.m. Ages 70+ = 75 mL/min/1.73 sq.m. Chronic Kidney Disease: Less than 60 mL/min/1.73 square meters End Stage Renal Disease: Less than 15 mL/min/1.73 square meters Performed By: #### C BC, ADIFF, ANEU #### [address] [address] #### BMP, GFR #### [address] [address] .NEUABSon 05-31-2020 Neutrophil, Absolute 11.20 10 3/mcL High 2.85-6.16 [facility] ([place]) Comment on above: Performed By: #### C BC, ADIFF, ANEU #### [place] [address] #### BMP, GFR #### [address] [address] BMPon 05-31-2020 BUN/Creatinine Ratio 23 ratio Normal 7-27 [facility] ([place]) Comment on above: Performed By: #### C BC, ADIFF, ANEU #### [address] [address] #### BMP, GFR #### [address] [address] Calcium [Mass/Vol] 9.3 mg/dL Normal 8.4-10.2 [facility] ([place]) Comment on above: Performed By: #### C BC, ADIFF, ANEU #### [place] [address] #### BMP, GFR #### [address] [address] Chloride [Moles/Vol] 107 mmol/L Normal 98-107 [facility] ([place]) Comment on above: Performed By: #### C BC, ADIFF, ANEU #### [place] [address] #### BMP, GFR #### [address] [address] CO2 [Moles/Vol] 26 mmol/L Normal 23-31 [facility] ([place]) Comment on above: Performed By: #### C BC, ADIFF, ANEU #### [place] [address] #### BMP, GFR #### [address] [address] Creatinine [Mass/Vol] 1.60 mg/dL High 0.55-1.02 [facility] ([place]) Comment on above: Performed By: #### C BC, ADIFF, ANEU #### [address] [address] #### BMP, GFR #### [address] [address] Electrolyte Balance 10.0 mEq/L Normal [facility] ([place]) Comment on above: Performed By: #### C BC, ADIFF, ANEU #### [address] [address] #### BMP, GFR #### [address] [address] Glucose [Mass/Vol] 118 mg/dL High 83-110 [facility] ([place]) Comment on above: Performed By: #### C BC, ADIFF, ANEU #### [address] [address] #### BMP, GFR #### [address] [address] Potassium [Moles/Vol] 4.9 mmol/L Normal 3.5-5.1 [facility] ([place]) Comment on above: Performed By: #### C BC, ADIFF, ANEU #### [address] [address] #### BMP, GFR #### [address] [address] Sodium [Moles/Vol] 143 mmol/L Normal 136-145 [facility] ([place]) Comment on above: Performed By: #### C BC, ADIFF, ANEU #### [address] [address] #### BMP, GFR #### [address] [address] Urea nitrogen [Mass/Vol] 37 mg/dL High 7-18 [facility] ([place]) Comment on above: Performed By: #### C BC, ADIFF, ANEU #### [address] [address] #### BMP, GFR #### [address] [address] CBCon 05-31-2020 Erythrocyte distribution width (RBC) [Ratio] 13.9 % Normal 11.5-14.5 [facility] ([place]) Comment on above: Performed By: #### C BCPANKAJIFF, ANEU #### [place] [address] #### BMP, GFR #### [address] [address] Hematocrit (Bld) [Volume fraction] 33.1 % Low 37.0-47.0 [facility] ([place]) Comment on above: Performed By: #### C BC, ADIFF, ANEU #### [place] [address] #### BMP, GFR #### [place] [address] Hgb 10.8 G/dL Low 12.0-16.0 [facility] ([place]) Comment on above: Performed By: #### C EVERTON RICARDO, ANEU #### [place] [address] #### BMP, GFR #### [address] [address] MCH (RBC) [Entitic mass] 30.6 pg Normal 27.0-31.2 [facility] ([place]) Comment on above: Performed By: #### C EVERTON RICARDO, ANEU #### [place] [address] #### BMP, GFR #### [place] [address] MCHC 32.7 G/dL Low 33.0-37.0 [facility] ([place]) Comment on above: Performed By: #### C BC, PANKAJIFF, ANEU #### [place] [address] #### BMP, GFR #### [address] [address] MCV (RBC) [Entitic vol] 93.5 fL Normal 80.0-94.0 [facility] ([place]) Comment on above: Performed By: #### C BC, ADIFF, ANEU #### [place] [address] #### BMP, GFR #### [address] [address] Platelet 222 10 3/mcL Normal 130-400 [facility] ([place]) Comment on above: Performed By: #### C BC, ADIFF, ANEU #### [place] [address] #### BMP, GFR #### [place] [address] Platelet mean volume (Bld) [Entitic vol] 10.5 fL High 7.4-10.4 [facility] ([place]) Comment on above: Performed By: #### C BC, ADIFF, ANEU #### [place] [address] #### BMP, GFR #### [place] [address] RBC 3.54 10 6/mcL Low 4.20-5.40 [facility] ([place]) Comment on above: Performed By: #### C BC, ADIFF, ANEU #### [place] [address] #### BMP, GFR #### [place] [address] WBC 13.40 10 3/mcL High 4.60-10.80 [facility] ([place]) Comment on above: Performed By: #### C BC, ADIFF, ANEU #### [place] [address] #### BMP, GFR #### [place] [address] CT PELVIS W/O CONTRASTon CT PELVIS W/O CONTRAST ORIGINAL CT PELVIS W/O CONTRAST This exam was performed according to our departmental dose optimization program, and includes the following measures where applicable: automated exposure control, adjustment of the mAs and/or kVp according to patient size and/or exam, and an iterative reconstruction algorithm. CLINICAL STATEMENT: pain, lesion. COMPARISON: Pelvis x-ray on 05/29/2020 FINDINGS: In the LEFT iliac bone adjacent to the sacroiliac joint there is a lesion that measures 5.7 x 1.7 cm in diameter. Chondroid matrix is present within this lesion. There is a narrow zone of transition. There is no expansion of the bone. No cortical destruction is present. There is irregularity of the posterior cortex of the iliac bone which appears be due to prior surgery. There is no adjacent soft tissue mass. No other pelvic lesions are present. Patient has had instrumented posterior fusion at the lumbosacral junction in the lower lumbar spine. LEFT hip replacement is present. There is soft tissue gas around the LEFT hip from recent surgery. No hematoma is present. There is no pelvic lymph node enlargement. IMPRESSION: LEFT iliac lesion adjacent to the sacroiliac joint with imaging features typical of an enchondroma. Interpreted By: Alfredo Addison MD Preliminary Report By: Alfredo Addison MD Electronically Signed By: Alfredo Addison MD Dictated Date: 05/31/2020 2:36:54 AM Prelim Date: 05/31/2020 2:36:54 AM Sign Date: 05/31/2020 2:47:04 AM Ordering Provider:Mackenzie Gil Normal [facility] ([place]) MG 05-31-2020 Magnesium [Mass/Vol] 2.4 mg/dL Normal 1.8-2.4 [facility]) Comment on above: Performed By: #### C BC, ADIFF, ANEU #### [address] [address] #### BMP, GFR #### [address] [address] XR HIP 1 VIEW LEFTon 021 XR HIP 1 VIEW LEFT ORIGINAL Exam LEFT hip intraoperative fluoroscopy CLINICAL STATEMENT: LEFT hip fracture. COMPARISON: LEFT hip x-ray on 05/29/2020 FINDINGS: Intraoperative fluoroscopy was provided to guide LEFT hip replacement. Fluoroscopy time: 10.5 seconds. Radiation dose: 1.2 mGy 6 images were saved. Images demonstrate progress of LEFT hip replacement. Detail is limited. See operative report for additional information. IMPRESSION: Fluoroscopy guided LEFT hip replacement. Interpreted By: Alfredo Addison MD Preliminary Report By: Alfredo Addison MD Electronically Signed By: Alfredo Addison MD Dictated Date: 05/31/2020 2:33:23 AM Prelim Date: 05/31/2020 2:33:23 AM Sign Date: 05/31/2020 2:36:11 AM Ordering Provider:Dick Dickerson [facility] ([place]) .Auto Diffon 05-30-2020 Basophil, Absolute 0.00 10 3/mcL Normal 0.00-0.19 [facility] ([place]) Comment on above: Performed By: #### C BC, ADIFF, ANEU #### [place] [address] #### BMP, GFR #### [address] [address] Basophils/100 WBC (Bld) 0.1 % Normal 0.0-2.5 [facility] ([place]) Comment on above: Performed By: #### C BC, ADIFF, ANEU #### [place] [address] #### BMP, GFR #### [address] [address] Eosinophil, Absolute 0.00 10 3/mcL Normal 0.00-0.40 A [facility] ([place]) Comment on above: Performed By: #### C BC, ADIFF, ANEU #### [place] [address] #### BMP, GFR #### [address] [address] Eosinophils/100 WBC (Bld) 0.0 % Normal 0.0-7.0 [facility] ([place]) Comment on above: Performed By: #### C BC, ADIFF, ANEU #### [place] [address] #### BMP, GFR #### [address] [address] Lymphocyte, Absolute 0.20 10 3/mcL Low 0.77-3.85 A [facility] ([place]) Comment on above: Performed By: #### C BC, ADIFF, ANEU #### [address] [address] #### BMP, GFR #### [facility] [address] [place] [address] Lymphocytes/100 WBC (Bld) 1.4 % Low 10.0-50.0 [facility] ([place]) Comment on above: Performed By: #### C BC, ADIFF, ANEU #### [address] [address] #### BMP, GFR #### [address] [address] Monocyte, Absolute 0.30 10 3/mcL Normal 0.15-1.00 [facility] ([place]) Comment on above: Performed By: #### C BC, ADIFF, ANEU #### [address] [address] #### BMP, GFR #### [address] [address] Monocytes/100 WBC (Bld) 2.1 % Normal 1.7-13.0 [facility] ([place]) Comment on above: Performed By: #### C BC, ADIFF, ANEU #### [address] [address] #### BMP, GFR #### [address] [address] Neutrophils/100 WBC (Bld) 96.4 % High 37.0-80.0 [facility] ([place]) Comment on above: Performed By: #### C BC, ADIFF, ANEU #### [address] [address] #### BMP, GFR #### [address] [address] Basophil, Absolute 0.00 10 3/mcL Normal 0.00-0.19 [facility] ([place]) Comment on above: Performed By: #### C BC, ADIFF, ANEU #### [place] [id number] #### BMP, GFR #### [address] [address] Basophils/100 WBC (Bld) 0.3 % Normal 0.0-2.5 [facility] ([place]) Comment on above: Performed By: #### C BC, ADIFF, ANEU #### [address] [address] #### BMP, GFR #### [address] [address] Eosinophil, Absolute 0.20 10 3/mcL Normal 0.00-0.40 A [facility] ([place]) Comment on above: Performed By: #### C BC, ADIFF, ANEU #### [address] [address] #### BMP, GFR #### [address] [address] Eosinophils/100 WBC (Bld) 2.1 % Normal 0.0-7.0 [facility] ([place]) Comment on above: Performed By: #### C BC, ADIFF, ANEU #### [address] [address] #### BMP, GFR #### [address] [address] Lymphocyte, Absolute 2.60 10 3/mcL Normal 0.77-3.85 A [facility] ([place]) Comment on above: Performed By: #### C BC, ADIFF, ANEU #### [place] [address] #### BMP, GFR #### [address] [address] Lymphocytes/100 WBC (Bld) 26.4 % Normal 10.0-50.0 [facility] ([place]) Comment on above: Performed By: #### C BC, ADIFF, ANEU #### [address] [address] #### BMP, GFR #### [address] [address] Monocyte, Absolute 1.00 10 3/mcL Normal 0.15-1.00 [facility] ([place]) Comment on above: Performed By: #### C BC, ADIFF, ANEU #### [address] [address] #### BMP, GFR #### [address] [address] Monocytes/100 WBC (Bld) 10.1 % Normal 1.7-13.0 [facility] ([place]) Comment on above: Performed By: #### C BC, ADIFF, ANEU #### [address] [address] #### BMP, GFR #### [address] [address] Neutrophils/100 WBC (Bld) 61.1 % Normal 37.0-80.0 [facility] ([place]) Comment on above: Performed By: #### C BC, ADIFF, ANEU #### [address] [address] #### BMP, GFR #### [address] [address] .GFRon 05-30-2020 GFR 39 ml/min/1.73sqm Normal [facility] ([place]) Comment on above: Result Comment: GFR Population mean for , Non- Americans Ages 20-29 = 116 mL/min/1.73 sq.m. Ages 30-39 = 107 mL/min/1.73 sq.m. Ages 40-49 = 99 mL/min/1.73 sq.m. Ages 50-59 = 93 mL/min/1.73 sq.m. Ages 60-69 = 85 mL/min/1.73 sq.m. Ages 70+ = 75 mL/min/1.73 sq.m. Chronic Kidney Disease: Less than 60 mL/min/1.73 square meters End Stage Renal Disease: Less than 15 mL/min/1.73 square meters Performed By: #### C BC, ADIFF, ANEU #### [address] [address] #### BMP, GFR #### [address] [address] GFR Non- 32 ml/min/1.73sqm Normal [facility] ([place]) Comment on above: Result Comment: GFR Population mean for , Non- Americans Ages 20-29 = 116 mL/min/1.73 sq.m. Ages 30-39 = 107 mL/min/1.73 sq.m. Ages 40-49 = 99 mL/min/1.73 sq.m. Ages 50-59 = 93 mL/min/1.73 sq.m. Ages 60-69 = 85 mL/min/1.73 sq.m. Ages 70+ = 75 mL/min/1.73 sq.m. Chronic Kidney Disease: Less than 60 mL/min/1.73 square meters End Stage Renal Disease: Less than 15 mL/min/1.73 square meters Performed By: #### C EVERTON RICARDO, ANEU #### [address] [address] #### BMP, GFR #### [place] [address] GFR 37 ml/min/1.73sqm Normal [facility] ([place]) Comment on above: Result Comment: GFR Population mean for , Non- Americans Ages 20-29 = 116 mL/min/1.73 sq.m. Ages 30-39 = 107 mL/min/1.73 sq.m. Ages 40-49 = 99 mL/min/1.73 sq.m. Ages 50-59 = 93 mL/min/1.73 sq.m. Ages 60-69 = 85 mL/min/1.73 sq.m. Ages 70+ = 75 mL/min/1.73 sq.m. Chronic Kidney Disease: Less than 60 mL/min/1.73 square meters End Stage Renal Disease: Less than 15 mL/min/1.73 square meters Performed By: #### C BC, ADIFF, ANEU #### [address] [address] #### BMP, GFR #### [address] [address] GFR Non- 31 ml/min/1.73sqm Normal [facility] ([place]) Comment on above: Result Comment: GFR Population mean for , Non- Americans Ages 20-29 = 116 mL/min/1.73 sq.m. Ages 30-39 = 107 mL/min/1.73 sq.m. Ages 40-49 = 99 mL/min/1.73 sq.m. Ages 50-59 = 93 mL/min/1.73 sq.m. Ages 60-69 = 85 mL/min/1.73 sq.m. Ages 70+ = 75 mL/min/1.73 sq.m. Chronic Kidney Disease: Less than 60 mL/min/1.73 square meters End Stage Renal Disease: Less than 15 mL/min/1.73 square meters Performed By: #### C BCPANKAJIFF, ANEU #### [place] [address] #### BMP, GFR #### [place] [address] .NEUABSon 05-30-2020 Neutrophil, Absolute 15.30 10 3/mcL High 2.85-6.16 [facility] ([place]) Comment on above: Performed By: #### C BCPANKAJIFF, ANEU #### [place] [address] #### BMP, GFR #### [place] [address] Neutrophil, Absolute 6.10 10 3/mcL Normal 2.85-6.16 A [facility] ([place]) Comment on above: Performed By: #### C EVERTON RICARDO, ANEU #### [place] [address] #### BMP, GFR #### [place] [address] APTTon 05-30-2020 aPTT Coag (Bld) [Time] 27.2 s Normal 23.7-37.6 [facility] ([place]) Comment on above: Result Comment: For Heparin anticoagulation therapy, the recommended therapeutic range is: 53.6-87.4 seconds (1.5 - 2.5 the normal plasma mean). Patients on heparin therapy may have an extreme result. Performed By: #### P RO, APTT #### [address] [address] Heparin dose (APTT) None Normal [facility] ([place]) Comment on above: Performed By: #### P RO, APTT #### [address] [address] BMPon 05-30-2020 BUN/Creatinine Ratio 19 ratio Normal 7-27 [facility] ([place]) Comment on above: Performed By: #### C BC, ADIFF, ANEU #### [address] [address] #### BMP, GFR #### [address] [address] Calcium [Mass/Vol] 8.9 mg/dL Normal 8.4-10.2 [facility] ([place]) Comment on above: Performed By: #### C BC, ADIFF, ANEU #### [address] [address] #### BMP, GFR #### [address] [address] Chloride [Moles/Vol] 103 mmol/L Normal 98-107 [facility] ([place]) Comment on above: Performed By: #### C BC, ADIFF, ANEU #### [address] [address] #### BMP, GFR #### [address] [address] CO2 [Moles/Vol] 24 mmol/L Normal 23-31 [facility] ([place]) Comment on above: Performed By: #### C BC, ADIFF, ANEU #### [address] [address] #### BMP, GFR #### [address] [address] Creatinine [Mass/Vol] 1.57 mg/dL High 0.55-1.02 [facility] ([place]) Comment on above: Performed By: #### C BC, ADIFF, ANEU #### [place] [address] [address] #### BMP, GFR #### [address] [address] Electrolyte Balance 11.0 mEq/L Normal [facility] ([place]) Comment on above: Performed By: #### C BC, ADIFF, ANEU #### [address] [address] #### BMP, GFR #### [address] [address] Glucose [Mass/Vol] 167 mg/dL High 83-110 [facility] ([place]) Comment on above: Performed By: #### C BC, ADIFF, ANEU #### [address] [address] #### BMP, GFR #### [address] [address] Potassium [Moles/Vol] 4.0 mmol/L Normal 3.5-5.1 [facility] ([place]) Comment on above: Performed By: #### C BC, ADIFF, ANEU #### [address] [address] #### BMP, GFR #### [address] [address] Sodium [Moles/Vol] 138 mmol/L Normal 136-145 [facility] ([place]) Comment on above: Performed By: #### C BC, ADIFF, ANEU #### [address] [address] #### BMP, GFR #### [address] [address] Urea nitrogen [Mass/Vol] 30 mg/dL High 7-18 [facility] ([place]) Comment on above: Performed By: #### C BC, ADIFF, ANEU #### [address] [address] #### BMP, GFR #### [address] [address] BUN/Creatinine Ratio 26 ratio Normal 7-27 [facility] ([place]) Comment on above: Performed By: #### C BC, ADIFF, ANEU #### [address] [address] #### BMP, GFR #### [address] [address] Calcium [Mass/Vol] 10.0 mg/dL Normal 8.4-10.2 [facility] ([place]) Comment on above: Performed By: #### C BC, ADIFF, ANEU #### [address] [address] #### BMP, GFR #### [address] [address] Chloride [Moles/Vol] 104 mmol/L Normal 98-107 [facility] ([place]) Comment on above: Performed By: #### C BC, ADIFF, ANEU #### [address] [address] #### BMP, GFR #### [address] [address] CO2 [Moles/Vol] 26 mmol/L Normal 23-31 [facility] ([place]) Comment on above: Performed By: #### C BC, ADIFF, ANEU #### [address] [address] #### BMP, GFR #### [address] [address] Creatinine [Mass/Vol] 1.63 mg/dL High 0.55-1.02 [facility] ([place]) Comment on above: Performed By: #### C BC, ADIFF, ANEU #### [address] [address] #### BMP, GFR #### [address] [address] Electrolyte Balance 11.0 mEq/L Normal [facility] ([place]) Comment on above: Performed By: #### C BC, ADIFF, ANEU #### [address] [address] #### BMP, GFR #### [address] [address] Glucose [Mass/Vol] 102 mg/dL Normal 83-110 [facility] ([place]) Comment on above: Performed By: #### C EVERTON RICARDO, ANEU #### [address] [address] #### BMP, GFR #### [address] [address] Potassium [Moles/Vol] 4.3 mmol/L Normal 3.5-5.1 [facility] ([place]) Comment on above: Performed By: #### C BCEVERTON, ANEU #### [address] [address] #### BMP, GFR #### [address] [address] Sodium [Moles/Vol] 141 mmol/L Normal 136-145 [facility] ([place]) Comment on above: Performed By: #### C EVERTON RICARDO, ANEU #### [address] [address] #### BMP, GFR #### [address] [address] Urea nitrogen [Mass/Vol] 43 mg/dL High 7-18 [facility] ([place]) Comment on above: Performed By: #### C EVERTON RICARDO, ANEU #### [address] [address] #### BMP, GFR #### [address] [address] CBCon 05-30-2020 Erythrocyte distribution width (RBC) [Ratio] 13.6 % Normal 11.5-14.5 [facility] ([place]) Comment on above: Performed By: #### C EVERTON RICARDO, ANEU #### [address] [address] #### BMP, GFR #### [address] [address] Hematocrit (Bld) [Volume fraction] 36.1 % Low 37.0-47.0 [facility] ([place]) Comment on above: Performed By: #### C BC, ADIFF, ANEU #### [place] [address] #### BMP, GFR #### [place] [address] Hgb 11.9 G/dL Low 12.0-16.0 [facility] ([place]) Comment on above: Performed By: #### C BC, ADIFF, ANEU #### [place] [address] #### BMP, GFR #### [place] [address] MCH (RBC) [Entitic mass] 31.2 pg Normal 27.0-31.2 [facility] ([place]) Comment on above: Performed By: #### C BC, ADIFF, ANEU #### [place] [address] #### BMP, GFR #### [place] [address] MCHC 33.1 G/dL Normal 33.0-37.0 [facility] ([place]) Comment on above: Performed By: #### C BC, ADIFF, ANEU #### [place] [address] #### BMP, GFR #### [place] [address] MCV (RBC) [Entitic vol] 94.2 fL High 80.0-94.0 [facility] ([place]) Comment on above: Performed By: #### C BC, ADIFF, ANEU #### [place] [address] #### BMP, GFR #### [place] [address] Platelet 244 10 3/mcL Normal 130-400 [facility] ([place]) Comment on above: Performed By: #### C BC, ADIFF, ANEU #### [place] [address] #### BMP, GFR #### [address] [address] Platelet mean volume (Bld) [Entitic vol] 10.1 fL Normal 7.4-10.4 [facility] ([place]) Comment on above: Performed By: #### C BC, ADIFF, ANEU #### [address] [address] #### BMP, GFR #### [place] [address] RBC 3.83 10 6/mcL Low 4.20-5.40 [facility] ([place]) Comment on above: Performed By: #### C BC, ADIFF, ANEU #### [place] [address] #### BMP, GFR #### [place] [address] WBC 15.90 10 3/mcL High 4.60-10.80 [facility] ([place]) Comment on above: Performed By: #### C BC, ADIFF, ANEU #### [place] [address] #### BMP, GFR #### [place] [address] Erythrocyte distribution width (RBC) [Ratio] 13.7 % Normal 11.5-14.5 [facility] ([place]) Comment on above: Performed By: #### C BC, ADIFF, ANEU #### [place] [address] #### BMP, GFR #### [place] [address] Hematocrit (Bld) [Volume fraction] 39.7 % Normal 37.0-47.0 [facility] ([place]) Comment on above: Performed By: #### C BC, ADIFF, ANEU #### [place] [address] #### BMP, GFR #### [place] [address] Hgb 13.4 G/dL Normal 12.0-16.0 [facility] ([place]) Comment on above: Performed By: #### C BC, ADIFF, ANEU #### [address] [address] #### BMP, GFR #### [address] [address] MCH (RBC) [Entitic mass] 31.3 pg High 27.0-31.2 [facility] ([place]) Comment on above: Performed By: #### C BC, ADIFF, ANEU #### [address] [address] #### BMP, GFR #### [address] [address] MCHC 33.8 G/dL Normal 33.0-37.0 [facility] ([place]) Comment on above: Performed By: #### C BC, ADIFF, ANEU #### [place] [address] #### BMP, GFR #### [address] [address] MCV (RBC) [Entitic vol] 92.8 fL Normal 80.0-94.0 [facility] ([place]) Comment on above: Performed By: #### C BC, ADIFF, ANEU #### [address] [address] #### BMP, GFR #### [address] [address] Platelet 265 10 3/mcL Normal 130-400 [facility] ([place]) Comment on above: Performed By: #### C BC, ADIFF, ANEU #### [place] [address] #### BMP, GFR #### [address] [address] Platelet mean volume (Bld) [Entitic vol] 10.9 fL High 7.4-10.4 [facility] ([place]) Comment on above: Performed By: #### C BC, ADIFF, ANEU #### [place] [address] #### BMP, GFR #### [place] [address] RBC 4.28 10 6/mcL Normal 4.20-5.40 [facility] ([place]) Comment on above: Performed By: #### C BC, ADIFF, ANEU #### [place] [address] #### BMP, GFR #### [place] [address] WBC 10.00 10 3/mcL Normal 4.60-10.80 [facility] ([place]) Comment on above: Performed By: #### C BC, ADIFF, ANEU #### [place] [address] #### BMP, GFR #### [place] [address] Gel ABOon 05-30-2020 ABO/Rh Interp AB POS Invalid Interpretation Code [facility] ([place]) Comment on above: Performed By: #### A BOG, ANSG #### [place] [address] Gel ABSon 05-30-2020 Antibody Screen Gel Negative Normal [facility] ([place]) Comment on above: Performed By: #### C BC, ADIFF, ANEU #### [place] [address] #### BMP, GFR #### [place] [address] PROon 05-30-2020 INR Coag (PPP) [Relative time] 1.1 {INR} Normal 0.9-1.2 [facility] ([place]) Comment on above: Result Comment: Christopher dard Dose 2.0 - 3.0 High Dose 2.5 - 3.5 The recommended therapeutic range for oral anticoagulant therapy is: LOW RISK: Prophylaxis of venous thrombosis INR: 2.0 - 3.0 Treatment of pulmonary embolism 2.0 - 3.0 Prevention of systemic embolism 2.0 - 3.0 HIGH RISK: Mechanical prosthetic valves 2.5 - 3.5 Performed By: #### P RO, APTT #### [facility] [address] [place], [place] [address] PT Coag (PPP) [Time] 12.8 s Normal 9.7-14.7 [facility] ([place]) Comment on above: Performed By: #### P RO, APTT #### [facility] [address] [place], [place] [address] XR CHEST 1 VIEWon 05-30-2020 XR CHEST 1 VIEW ORIGINAL XR CHEST 1 VIEW CLINICAL STATEMENT: pre-op request. COMPARISON: None FINDINGS: The heart size and mediastinal contours are normal. There is no acute lung infiltrate or pulmonary edema. No pleural fluid or pneumothorax is present. There is no acute skeletal abnormality. IMPRESSION: No acute radiographic abnormality of the chest. Interpreted By: Alfredo Addison MD Preliminary Report By: Alfredo Addison MD Electronically Signed By: Alfredo Addison MD Dictated Date: 05/30/2020 2:38:55 AM Prelim Date: 05/30/2020 2:38:55 AM Sign Date: 05/30/2020 2:40:21 AM Ordering Provider:Jefry Tinsley [facility]) XR FLUORO < 1HR TECH TIMEon 05-30-2020 XR FLUORO < 1HR TECH TIME ORIGINAL Images acquired, not reported on this accession number. Normal [facility] ([place]) XR HIP LEFT W/PELVIS 4 VIEWS on 05-30-2020 XR HIP LEFT W/PELVIS 4 VIEWS ORIGINAL XR HIP LEFT W/PELVIS 4 VIEWS CLINICAL STATEMENT: fall Comparison: None FINDINGS: Impacted subcapital fracture on the LEFT with mild inferior displacement and valgus angulation of the femoral neck in relation to the femoral head. No dislocation. The lines are intact. Visualized upper sacral arcuate lines are symmetric and intact. There is partial visualization of lower lumbosacral fusion. There is sclerotic lesion at the LEFT ilium near the SI joint. IMPRESSION: Subcapital LEFT femur fracture. Indeterminate Ill-defined sclerotic lesion in the LEFT ilium near the SI joint measuring 4 cm. Consider nuclear medicine bone scan as this may represent a metastatic lesion. I have personally reviewed the images of this examination and agree with the resident's findings and interpretation. Interpreted By: Chandra Elena MD Preliminary Report By: Aashish Carroll MD Electronically Signed By: Chandra Elena MD Dictated Date: 05/29/2020 10:54:51 PM Prelim Date: 05/29/2020 10:56:56 PM Sign Date: 05/29/2020 11:21:11 PM Ordering Provider:Jefry Tinsley [facility] ([place]) Culture, urine Bacteria identified Cx Nom (U) Mixed Gram Pos & Gram Neg Org [facility] Work Phone: Vital Signs Date Time Vital Sign Value Performing Clinician Facility 12-17-2024 13:12-0400 Body temperature 98 [degF] Dr. Jaclyn Siddiqui MD Work Phone: [facility] 12-17-2024 13:12-0400 Body weight 66.[address] Jaclyn Siddiqui MD Work Phone: [facility] 12-17-2024 13:12-0400 Diastolic blood pressure 74 mm[Hg] Dr. Jaclyn Siddiqui MD Work Phone: [facility] 12-17-2024 13:12-0400 Heart rate 88 /min Dr. Jaclyn Siddiqui MD Work Phone: [facility] 12-17-2024 13:12-0400 Respiratory rate 17 /min Dr. Jaclyn Siddiqui MD Work Phone: [facility] 12-17-2024 13:12-0400 SaO2% (BldA) [Mass fraction] 97 % Dr. Jaclyn Siddiqui MD Work Phone: [facility] 12-17-2024 13:12-0400 Systolic blood pressure 156 mm[Hg] Dr. Jaclyn Siddiqui MD Work Phone: [facility] 11-19-2024 11:47-0400 Body temperature 98.6 [degF] Dr. Jaclyn Siddiqui MD Work Phone: [facility] 11-19-2024 11:47-0400 Body weight 65.[address] Jaclyn Siddiqui MD Work Phone: [facility] 11-19-2024 11:47-0400 Diastolic blood pressure 70 mm[Hg] Dr. Jaclyn Siddiqui MD Work Phone: [facility] 11-19-2024 11:47-0400 Heart rate 68 /min Dr. Jaclyn Siddiqui MD Work Phone: [facility] 11-19-2024 11:47-0400 Respiratory rate 17 /min Dr. Jaclyn Siddiqui MD Work Phone: [facility] 11-19-2024 11:47-0400 SaO2% (BldA) [Mass fraction] 95 % Dr. Jaclyn Siddiqui MD Work Phone: [facility] 11-19-2024 11:47-0400 Systolic blood pressure 170 mm[Hg] Dr. Jaclyn Siddiqui MD Work Phone: [facility] 10-18-2024 11:26-0400 Body height 167.[address] Jaclyn Siddiqui MD Work Phone: [facility] 10-18-2024 11:26-0400 Body mass index (BMI) [Ratio] 23.8 kg/m2 Dr. Jaclyn Siddiqui MD Work Phone: [facility] 10-18-2024 11:26-0400 Body temperature 98.9 [degF] Dr. Jaclyn Siddiqui MD Work Phone: [facility] 10-18-2024 11:26-0400 Body weight 67.[address] Jaclyn Siddiqui MD Work Phone: [facility] 10-18-2024 11:26-0400 Diastolic blood pressure 70 mm[Hg] Dr. Jaclyn Siddiqui MD Work Phone: [facility] 10-18-2024 11:26-0400 Heart rate 73 /min Dr. Jaclyn Siddiqui MD Work Phone: [facility] 10-18-2024 11:26-0400 Respiratory rate 16 /min Dr. Jaclyn Siddiqui MD Work Phone: [facility] 10-18-2024 11:26-0400 SaO2% (BldA) [Mass fraction] 97 % Dr. Jalcyn Siddiqui MD Work Phone: [facility] 10-18-2024 11:26-0400 Systolic blood pressure 165 mm[Hg] Dr. Jaclyn Siddiqui MD Work Phone: [facility] 10-09-2024 12:57-0400 Body height 167.[address] Jaclyn Siddiqui MD Work Phone: [facility] 10-09-2024 12:57-0400 Body mass index (BMI) [Ratio] 23.9 kg/m2 Dr. Jaclyn Siddiqui MD Work Phone: [facility] 10-09-2024 12:57-0400 Body temperature 98.4 [degF] Dr. Jaclyn Siddiqui MD Work Phone: [facility] 10-09-2024 12:57-0400 Body weight 67.[address] Jaclyn Siddiqui MD Work Phone: [facility] 10-09-2024 12:57-0400 Diastolic blood pressure 78 mm[Hg] Dr. Jaclyn Siddiqui MD Work Phone: [facility] 10-09-2024 12:57-0400 Heart rate 70 /min Dr. Jaclyn Siddiqui MD Work Phone: [facility] 10-09-2024 12:57-0400 Respiratory rate 15 /min Dr. Jaclyn Siddiqui MD Work Phone: [facility] 10-09-2024 12:57-0400 SaO2% (BldA) [Mass fraction] 96 % Dr. Jaclyn Siddiqui MD Work Phone: [facility] 10-09-2024 12:57-0400 Systolic blood pressure 168 mm[Hg] Dr. Jaclyn Siddiqui MD Work Phone: [facility] 09-17-2024 11:23-0400 Body temperature 98.6 [degF] Dr. Jaclyn Siddiqui MD Work Phone: [facility] 09-17-2024 11:23-0400 Body weight 67.[address] Jaclyn Siddiqui MD Work Phone: [facility] 09-17-2024 11:23-0400 Diastolic blood pressure 80 mm[Hg] Dr. Jaclyn Sdidiqui MD Work Phone: [facility] 09-17-2024 11:23-0400 Heart rate 67 /min Dr. Jaclyn Siddiqui MD Work Phone: [facility] 09-17-2024 11:23-0400 Respiratory rate 17 /min Dr. Jaclyn Siddiqui MD Work Phone: [facility] 09-17-2024 11:23-0400 SaO2% (BldA) [Mass fraction] 97 % Dr. Jaclyn Siddiqui MD Work Phone: [facility] 09-17-2024 11:23-0400 Systolic blood pressure 154 mm[Hg] Dr. Jaclyn Siddiqui MD Work Phone: [facility] 08-22-2024 10:47-0400 Body height 165.1 cm Nelson Torrez MD Work Phone: [facility] 08-22-2024 10:47-0400 Body mass index (BMI) [Ratio] 24.63 kg/m2 Nelson Torrez MD Work Phone: [facility] 08-22-2024 10:47-0400 Body temperature 97.5 [degF] Nelson Torrez MD Work Phone: [facility] 08-22-2024 10:47-0400 Body weight 67.13 kg Nelson Torrez MD Work Phone: [facility] 08-22-2024 10:47-0400 Diastolic blood pressure 70 mm[Hg] Nelson Torrez MD Work Phone: [facility] Comment on above: Dr. Torrez notified of blood pressure. 08-22-2024 10:47-0400 Heart rate 78 /min Nelson Torrez MD Work Phone: [facility] 08-22-2024 10:47-0400 Respiratory rate 14 /min Nelson Torrez MD Work Phone: [facility] 08-22-2024 10:47-0400 SaO2% (BldA) [Mass fraction] 95 % Nelson Torrez MD Work Phone: [facility] 08-22-2024 10:47-0400 Systolic blood pressure 148 mm[Hg] Nelson Torrez MD Work Phone: [facility] Comment on above: Dr. Torrez notified of blood pressure. 08-16-2024 14:59-0400 Body temperature 98.4 [degF] Dr. Jaclyn Siddiqui MD Work Phone: [facility] 08-16-2024 14:59-0400 Body weight 67.[address] Jaclyn Siddiqui MD Work Phone: [facility] 08-16-2024 14:59-0400 Diastolic blood pressure 70 mm[Hg] Dr. Jaclyn Siddiqui MD Work Phone: [facility] 08-16-2024 14:59-0400 Heart rate 71 /min Dr. Jaclyn Siddiqui MD Work Phone: [facility] 08-16-2024 14:59-0400 Respiratory rate 17 /min Dr. Jaclyn Siddiqui MD Work Phone: [facility] 08-16-2024 14:59-0400 SaO2% (BldA) [Mass fraction] 96 % Dr. Jaclyn Siddiqui MD Work Phone: [facility] 08-16-2024 14:59-0400 Systolic blood pressure 158 mm[Hg] Dr. Jaclyn Siddiqui MD Work Phone: [facility] 08-02-2024 11:55-0400 Body mass index (BMI) [Ratio] 24.82 kg/m2 Nelson Torrez MD Work Phone: [facility] 08-02-2024 11:55-0400 Body temperature 98.49 [degF] Nelson Torrez MD Work Phone: [facility] 08-02-2024 11:55-0400 Body weight 67.59 kg Nelson Torrez MD Work Phone: [facility] 08-02-2024 11:55-0400 Diastolic blood pressure 76 mm[Hg] Nelson Torrez MD Work Phone: [facility] 08-02-2024 11:55-0400 Heart rate 68 /min Nelson Torrez MD Work Phone: [facility] 08-02-2024 11:55-0400 Respiratory rate 17 /min Nelson Torrez MD Work Phone: [facility] 08-02-2024 11:55-0400 SaO2% (BldA) [Mass fraction] 97 % Nelson Torrez MD Work Phone: [facility] 08-02-2024 11:55-0400 Systolic blood pressure 138 mm[Hg] Nelson Torrez MD Work Phone: [facility] 07-16-2024 10:38-0400 Body temperature 98 [degF] Dr. Jaclyn Siddiqui MD Work Phone: [facility] 07-16-2024 10:38-0400 Body weight 67.[address] Jaclyn Siddiqui MD Work Phone: [facility] 07-16-2024 10:38-0400 Diastolic blood pressure 72 mm[Hg] Dr. Jaclyn Siddiqui MD Work Phone: [facility] 07-16-2024 10:38-0400 Heart rate 68 /min Dr. Jaclyn Siddiqui MD Work Phone: [facility] 07-16-2024 10:38-0400 Respiratory rate 17 /min Dr. Jaclyn Siddiqui MD Work Phone: [facility] 07-16-2024 10:38-0400 SaO2% (BldA) [Mass fraction] 98 % Dr. Jaclyn Siddiqui MD Work Phone: [facility] 07-16-2024 10:38-0400 Systolic blood pressure 120 mm[Hg] Dr. Jaclyn Siddiqui MD Work Phone: [facility] 06-12-2024 14:01-0400 Body temperature 98 [degF] Dr. Jaclyn Siddiqui MD Work Phone: [facility] 06-12-2024 14:01-0400 Body weight 68.[address] Jaclyn Siddiqui MD Work Phone: [facility] 06-12-2024 14:01-0400 Diastolic blood pressure 78 mm[Hg] Dr. Jaclyn Siddiqui MD Work Phone: [facility] 06-12-2024 14:01-0400 Heart rate 69 /min Dr. Jaclyn Siddiqui MD Work Phone: [facility] 06-12-2024 14:01-0400 Respiratory rate 17 /min Dr. Jaclyn Siddiqui MD Work Phone: [facility] 06-12-2024 14:01-0400 SaO2% (BldA) [Mass fraction] 97 % Dr. Jaclyn Siddiqui MD Work Phone: [facility] 06-12-2024 14:01-0400 Systolic blood pressure 150 mm[Hg] Dr. Jaclyn Siddiqui MD Work Phone: [facility] 06-06-2024 14:36-0400 Body height 165 cm Zara Galloway APRN.CNP Work Phone: [facility] 06-06-2024 14:36-0400 Body mass index (BMI) [Ratio] 24.62 kg/m2 Zara Podlogar DEFENSE ANALYST.VP CLINICAL Work Phone: [facility] 06-06-2024 14:36-0400 Body weight 67.04 kg Zara Podlogar DEFENSE ANALYST.VP CLINICAL Work Phone: [facility] 06-06-2024 14:36-0400 Diastolic blood pressure 72 mm[Hg] Zara Podlogar DEFENSE ANALYST.VP CLINICAL Work Phone: [facility] 06-06-2024 14:36-0400 Heart rate 70 /min Zara Podlogar DEFENSE ANALYST.VP CLINICAL Work Phone: [facility] 06-06-2024 14:36-0400 Respiratory rate 18 /min Zara Podlogar DEFENSE ANALYST.VP CLINICAL Work Phone: [facility] 06-06-2024 14:36-0400 SaO2% (BldA) [Mass fraction] 95 % Zara Podlogar DEFENSE ANALYST.VP CLINICAL Work Phone: [facility] 06-06-2024 14:36-0400 Systolic blood pressure 136 mm[Hg] Zara Podlogar DEFENSE ANALYST.VP CLINICAL Work Phone: [facility] 05-14-2024 10:23-0400 Body height 167.[address] Jaclyn Siddiqui MD Work Phone: [facility] 05-14-2024 10:23-0400 Body mass index (BMI) [Ratio] 24.3 kg/m2 Dr. Jaclyn Siddiqui MD Work Phone: [facility] 05-14-2024 10:23-0400 Body temperature 98.2 [degF] Dr. Jaclyn Siddiqui MD Work Phone: [facility] 05-14-2024 10:23-0400 Body weight 68.[address] Jaclyn Siddiqui MD Work Phone: [facility] 05-14-2024 10:23-0400 Diastolic blood pressure 80 mm[Hg] Dr. Jaclyn Siddiqui MD Work Phone: [facility] 05-14-2024 10:23-0400 Heart rate 76 /min Dr. Jaclyn Siddiqui MD Work Phone: [facility] 05-14-2024 10:23-0400 Respiratory rate 17 /min Dr. Jaclyn Siddiqui MD Work Phone: [facility] 05-14-2024 10:23-0400 SaO2% (BldA) [Mass fraction] 94 % Dr. Jaclyn Siddiqui MD Work Phone: [facility] 05-14-2024 10:23-0400 Systolic blood pressure 150 mm[Hg] Dr. Jaclyn Siddiqui MD Work Phone: [facility] 04-11-2024 12:50-0500 Diastolic blood pressure 76 mm[Hg] Nelson Torrez MD Work Phone: [facility] 04-11-2024 12:50-0500 Heart rate 70 /min Nelson Torrez MD Work Phone: [facility] 04-11-2024 12:50-0500 SaO2% (BldA) [Mass fraction] 97 % Nelson Torrez MD Work Phone: [facility] 04-11-2024 12:50-0500 Systolic blood pressure 168 mm[Hg] Nelson Torrez MD Work Phone: [facility] 04-11-2024 11:27-0500 Body mass index (BMI) [Ratio] 24.2 kg/m2 Dr. Jaclyn Siddiqui MD Work Phone: [facility] 04-11-2024 11:27-0500 Body temperature 98.6 [degF] Dr. Jaclyn Siddiqui MD Work Phone: [facility] 04-11-2024 11:27-0500 Body weight 68.[address] Jaclyn Siddiqui MD Work Phone: [facility] 04-11-2024 11:27-0500 Diastolic blood pressure 70 mm[Hg] Dr. Jaclyn Siddiqui MD Work Phone: [facility] 04-11-2024 11:27-0500 Heart rate 71 /min Dr. Jaclyn Siddiqui MD Work Phone: [facility] 04-11-2024 11:27-0500 Respiratory rate 16 /min Dr. Jaclyn Siddiqui MD Work Phone: [facility] 04-11-2024 11:27-0500 SaO2% (BldA) [Mass fraction] 96 % Dr. Jaclyn Siddiqui MD Work Phone: [facility] 04-11-2024 11:27-0500 Systolic blood pressure 134 mm[Hg] Dr. Jaclyn Siddiqui MD Work Phone: [facility] 03-14-2024 13:13-0500 Body height 165.1 cm Enmanuel Lockwood MD Work Phone: [facility] 03-14-2024 13:13-0500 Body mass index (BMI) [Ratio] 24.96 kg/m2 Enmanuel Lockwood MD Work Phone: [facility] 03-14-2024 13:13-0500 Body weight 68.04 kg Enmanuel Lockwood MD Work Phone: [facility] 03-14-2024 13:13-0500 Diastolic blood pressure 77 mm[Hg] Enmanuel Lockwood MD Work Phone: [facility] 03-14-2024 13:13-0500 Heart rate 78 /min Enmanuel Lockwood MD Work Phone: [facility] 03-14-2024 13:13-0500 Systolic blood pressure 189 mm[Hg] Enmanuel Lockwood MD Work Phone: [facility] 01-18-2024 15:59-0500 Body height 165.1 cm Nelson Torrez MD Work Phone: [facility] 01-18-2024 15:59-0500 Body mass index (BMI) [Ratio] 25.09 kg/m2 Nelson Torrez MD Work Phone: [facility] 01-18-2024 15:59-0500 Body temperature 97.11 [degF] Nelson Torrez MD Work Phone: [facility] 01-18-2024 15:59-0500 Body weight 68.4 kg Nelson Torrez MD Work Phone: [facility] 01-18-2024 15:59-0500 Diastolic blood pressure 80 mm[Hg] Nelson Torrez MD Work Phone: [facility] 01-18-2024 15:59-0500 Heart rate 78 /min Nelson Torrez MD Work Phone: [facility] 01-18-2024 15:59-0500 SaO2% (BldA) [Mass fraction] 97 % Nelson Torrez MD Work Phone: [facility] 01-18-2024 15:59-0500 Systolic blood pressure 142 mm[Hg] Nelson Torrez MD Work Phone: [facility] 01-05-2024 10:57-0500 Body mass index (BMI) [Ratio] 24.95 kg/m2 Zara Podlogar [employer] Work Phone: [facility] 01-05-2024 10:57-0500 Body weight 68 kg Zara Podlogar DEFENSE ANALYST.VP CLINICAL Work Phone: [facility] 01-05-2024 10:57-0500 Diastolic blood pressure 80 mm[Hg] Zara Podlogar DEFENSE ANALYST.VP CLINICAL Work Phone: [facility] 01-05-2024 10:57-0500 Heart rate 66 /min Zara Podlogar DEFENSE ANALYST.VP CLINICAL Work Phone: [facility] 01-05-2024 10:57-0500 Respiratory rate 18 /min Zara Podlogar DEFENSE ANALYST.VP CLINICAL Work Phone: [facility] 01-05-2024 10:57-0500 Systolic blood pressure 150 mm[Hg] Zara Podlogar DEFENSE ANALYST.VP CLINICAL Work Phone: [facility] 01-03-2024 09:45-0500 Body mass index (BMI) [Ratio] 25.46 kg/m2 Zara Podlogar DEFENSE ANALYST.VP CLINICAL Work Phone: [facility] 01-03-2024 09:45-0500 Body temperature 98.6 [degF] Zara Podlogar DEFENSE ANALYST.VP CLINICAL Work Phone: [facility] 01-03-2024 09:45-0500 Body weight 69.4 kg Zara Podlogar DEFENSE ANALYST.VP CLINICAL Work Phone: [facility] 01-03-2024 09:45-0500 Heart rate 71 /min Zara Podlogar DEFENSE ANALYST.VP CLINICAL Work Phone: [facility] 01-03-2024 09:45-0500 Respiratory rate 18 /min Zara Podlogar DEFENSE ANALYST.VP CLINICAL Work Phone: [facility] 01-03-2024 09:45-0500 SaO2% (BldA) [Mass fraction] 95 % Zara Podlogar DEFENSE ANALYST.VP CLINICAL Work Phone: [facility] 04-19-2023 10:56-0500 Body height 167.[address] Kristina Brandon Work Phone: [facility] 04-19-2023 10:56-0500 Body mass index (BMI) [Ratio] 24 kg/m2 Dr. Kristina Brandon Work Phone: [facility] 04-19-2023 10:56-0500 Body temperature 97.4 [degF] Dr. Kristina Brandon Work Phone: [facility] 04-19-2023 10:56-0500 Body weight 67.[address] Kristina Brandon Work Phone: [facility] 04-19-2023 10:56-0500 Diastolic blood pressure 84 mm[Hg] Dr. Kristina Brandon Work Phone: [facility] 04-19-2023 10:56-0500 Heart rate 57 /min Dr. Kristina Brandon Work Phone: [facility] 04-19-2023 10:56-0500 Respiratory rate 16 /min Dr. Kristina Brandon Work Phone: [facility] 04-19-2023 10:56-0500 SaO2% (BldA) [Mass fraction] 98 % Dr. Kristina Brandon Work Phone: [facility] 04-19-2023 10:56-0500 Systolic blood pressure 138 mm[Hg] Dr. Kristina Brandon Work Phone: [facility] 04-05-2023 10:55-0500 Body mass index (BMI) [Ratio] 24.3 kg/m2 Dr. Kristina Brandon Work Phone: [facility] 04-05-2023 10:55-0500 Body temperature 98.4 [degF] Dr. Kristina Brandon Work Phone: [facility] 04-05-2023 10:55-0500 Body weight 68.[address] Kristina Brandon Work Phone: [facility] 04-05-2023 10:55-0500 Diastolic blood pressure 72 mm[Hg] Dr. Kristina Brandon Work Phone: [facility] 04-05-2023 10:55-0500 Heart rate 76 /min Dr. Kristina Brandon Work Phone: [facility] 04-05-2023 10:55-0500 Respiratory rate 17 /min Dr. Kristina Brandon Work Phone: [facility] 04-05-2023 10:55-0500 SaO2% (BldA) [Mass fraction] 98 % Dr. Kristina Brandon Work Phone: [facility] 04-05-2023 10:55-0500 Systolic blood pressure 140 mm[Hg] Dr. Kristina Brandon Work Phone: [facility] 03-31-2023 14:30-0500 Diastolic blood pressure 68 mm[Hg] Dr. Kristina Brandon Work Phone: [facility] 03-31-2023 14:30-0500 Heart rate 74 /min Dr. Kristina Brandon Work Phone: [facility] 03-31-2023 14:30-0500 Respiratory rate 16 /min Dr. Kristina Brandon Work Phone: [facility] 03-31-2023 14:30-0500 SaO2% (BldA) [Mass fraction] 98 % Dr. Kristina Brandon Work Phone: [facility] 03-31-2023 14:30-0500 Systolic blood pressure 142 mm[Hg] Dr. Kristina Brandon Work Phone: [facility] 03-31-2023 11:59-0500 Body height 167.[address] Kristina Brandon Work Phone: [facility] 03-31-2023 11:59-0500 Body mass index (BMI) [Ratio] 25.4 kg/m2 Dr. Kristina Brandon Work Phone: [facility] 03-31-2023 11:59-0500 Body temperature 98 [degF] Dr. Kristina Brandon Work Phone: [facility] 03-31-2023 11:59-0500 Body weight 71.[address] Kristina Brandon Work Phone: [facility] 03-03-2023 11:04-0500 Body temperature 98.3 [degF] Dr. Kristina Brandon Work Phone: [facility] 03-03-2023 11:04-0500 Body weight 68.[address] Kristina Brandon Work Phone: [facility] 03-03-2023 11:04-0500 Diastolic blood pressure 70 mm[Hg] Dr. Kristina Brandon Work Phone: [facility] 03-03-2023 11:04-0500 Heart rate 83 /min Dr. Kristina Brandon Work Phone: [facility] 03-03-2023 11:04-0500 Respiratory rate 16 /min Dr. Kristina Brandon Work Phone: [facility] 03-03-2023 11:04-0500 SaO2% (BldA) [Mass fraction] 99 % Dr. Kristina Brandon Work Phone: [facility] 03-03-2023 11:04-0500 Systolic blood pressure 140 mm[Hg] Dr. Kristina Brandon Work Phone: [facility] 03-01-2023 13:16-0500 Body mass index (BMI) [Ratio] 25 kg/m2 Dr. Kristina Brandon Work Phone: [facility] 03-01-2023 13:16-0500 Body weight 68.[address] Kristina Brandon Work Phone: [facility] 02-10-2023 14:07-0500 Body mass index (BMI) [Ratio] 25.4 kg/m2 Dr. Kristina Brandon Work Phone: [facility] 02-10-2023 14:07-0500 Body temperature 98.2 [degF] Dr. Kristina Brandon Work Phone: [facility] 02-10-2023 14:07-0500 Body weight 69.[address] Kristina Brandon Work Phone: [facility] 02-10-2023 14:07-0500 Diastolic blood pressure 80 mm[Hg] Dr. Kristina Brandon Work Phone: [facility] 02-10-2023 14:07-0500 Heart rate 75 /min Dr. Kristina Brandon Work Phone: [facility] 02-10-2023 14:07-0500 Respiratory rate 17 /min Dr. Kristina Brandon Work Phone: [facility] 02-10-2023 14:07-0500 SaO2% (BldA) [Mass fraction] 96 % Dr. Kristina Brandon Work Phone: [facility] 02-10-2023 14:07-0500 Systolic blood pressure 122 mm[Hg] Dr. Kristina Brandon Work Phone: [facility] 02-01-2023 10:50-0500 Body temperature 98.6 [degF] Dr. Kristina Brandon Work Phone: [facility] 02-01-2023 10:50-0500 Body weight 68.[address] Kristina Brandon Work Phone: [facility] 02-01-2023 10:50-0500 Diastolic blood pressure 60 mm[Hg] Dr. Kristina Brandon Work Phone: [facility] 02-01-2023 10:50-0500 Heart rate 79 /min Dr. Kristina Brandon Work Phone: [facility] 02-01-2023 10:50-0500 Respiratory rate 15 /min Dr. Kristina Brandon Work Phone: [facility] 02-01-2023 10:50-0500 SaO2% (BldA) [Mass fraction] 96 % Dr. Kristina Brandon Work Phone: [facility] 02-01-2023 10:50-0500 Systolic blood pressure 140 mm[Hg] Dr. Kristina Brandon Work Phone: [facility] 01-26-2023 11:49-0500 Body mass index (BMI) [Ratio] 24.4 kg/m2 Dr. Kristina Brandon Work Phone: [facility] 01-26-2023 11:49-0500 Body temperature 97.5 [degF] Dr. Kristina Brandon Work Phone: [facility] 01-26-2023 11:49-0500 Body weight 66.[address] Kristina Brandon Work Phone: [facility] 01-26-2023 11:49-0500 Diastolic blood pressure 92 mm[Hg] Dr. Kristina Brandon Work Phone: [facility] 01-26-2023 11:49-0500 Heart rate 86 /min Dr. Kristina Brandon Work Phone: [facility] 01-26-2023 11:49-0500 Respiratory rate 16 /min Dr. Kristina Brandon Work Phone: [facility] 01-26-2023 11:49-0500 SaO2% (BldA) [Mass fraction] 93 % Dr. Kristina Brandon Work Phone: [facility] 01-26-2023 11:49-0500 Systolic blood pressure 181 mm[Hg] Dr. Kristina Brandon Work Phone: [facility] 01-17-2023 11:37-0500 Diastolic blood pressure 88 mm[Hg] Dr. Kristina Brandon Work Phone: [facility] 01-17-2023 11:37-0500 Systolic blood pressure 158 mm[Hg] Dr. Kristina Brandon Work Phone: [facility] 01-17-2023 10:36-0500 Body mass index (BMI) [Ratio] 24.5 kg/m2 Dr. Kristina Brandon Work Phone: [facility] 01-17-2023 10:36-0500 Body temperature 98.4 [degF] Dr. Kristina Brandon Work Phone: [facility] 01-17-2023 10:36-0500 Body weight 68.[address] Kristina Brandon Work Phone: [facility] 01-17-2023 10:36-0500 Heart rate 78 /min Dr. Kristina Brandon Work Phone: [facility] 01-17-2023 10:36-0500 Respiratory rate 16 /min Dr. Kristina Brandon Work Phone: [facility] 01-17-2023 10:36-0500 SaO2% (BldA) [Mass fraction] 98 % Dr. Kristina Brandon Work Phone: [facility] 12-27-2022 09:45-0400 Body mass index (BMI) [Ratio] 24.7 kg/m2 Dr. Kristina Brandon Work Phone: [facility] 12-27-2022 09:45-0400 Body temperature 98.7 [degF] Dr. Kristina Brandon Work Phone: [facility] 12-27-2022 09:45-0400 Body weight 69.[address] Kristina Brandon Work Phone: [facility] 12-27-2022 09:45-0400 Diastolic blood pressure 88 mm[Hg] Dr. Kristina Brandon Work Phone: [facility] 12-27-2022 09:45-0400 Heart rate 78 /min Dr. Kristina Brandon Work Phone: [facility] 12-27-2022 09:45-0400 Respiratory rate 16 /min Dr. Kristina Brandon Work Phone: [facility] 12-27-2022 09:45-0400 SaO2% (BldA) [Mass fraction] 97 % Dr. Kristina Brandon Work Phone: [facility] 12-27-2022 09:45-0400 Systolic blood pressure 138 mm[Hg] Dr. Kristina Brandon Work Phone: [facility] 12-06-2022 13:23-0400 Body height 173.35 cm NERY López [facility]; [facility] Work Phone: 12-06-2022 13:23-0400 Body mass index (BMI) [Ratio] 23.4 kg/m2 NERY Cristobal [employer] ADVISER [facility]; [facility] Work Phone: 12-06-2022 13:23-0400 Body surface area Derived from formula 1.84 m2 NERY Jain DON [facility]; [facility] Work Phone: 12-06-2022 13:23-0400 Body temperature 97.6 [degF] NERY Jain DON [facility]; [facility] Work Phone: Comment on above: Method: Temporal 12-06-2022 13:23-0400 Body weight 70.31 kg NERY Jain DON [facility]; [facility] Work Phone: 12-06-2022 13:23-0400 Diastolic blood pressure 80 mm[Hg] NERY Jain DON [facility]; [facility] Work Phone: Comment on above: Patient Position: Sitting; Cuff Location : Left Arm; Cuff Size: Standard 12-06-2022 13:23-0400 Heart rate 80 /min NERY Jain DON [facility]; [facility] Work Phone: Comment on above: Pattern: Regular 12-06-2022 13:23-0400 Respiratory rate 18 /min NERY Jain DON [facility]; [facility] Work Phone: Comment on above: Pattern: Unlabored 12-06-2022 13:23-0400 SaO2% (BldA) [Mass fraction] 99 % NERY Cristobal OCHOA [facility]; [facility] Work Phone: Comment on above: Room air 12-06-2022 13:23-0400 Systolic blood pressure 136 mm[Hg] NERY Cristobal OCHOA [facility]; [facility] Work Phone: Comment on above: Patient Position: Sitting; Cuff Location : Left Arm; Cuff Size: Standard 12-02-2022 14:00-0400 Body mass index (BMI) [Ratio] 25.4 kg/m2 Dr. Kristina Brandon Work Phone: [facility] 12-02-2022 14:00-0400 Body temperature 98.2 [degF] Dr. Kristina Brandon Work Phone: [facility] 12-02-2022 14:00-0400 Body weight 71.[address] Kristina Brandon Work Phone: [facility] 12-02-2022 14:00-0400 Diastolic blood pressure 66 mm[Hg] Dr. Kristina Brandon Work Phone: [facility] 12-02-2022 14:00-0400 Heart rate 76 /min Dr. Kristina Brandon Work Phone: [facility] 12-02-2022 14:00-0400 Respiratory rate 17 /min Dr. Kristina Brandon Work Phone: [facility] 12-02-2022 14:00-0400 SaO2% (BldA) [Mass fraction] 97 % Dr. Kristina Brandon Work Phone: [facility] 12-02-2022 14:00-0400 Systolic blood pressure 148 mm[Hg] Dr. Kristina Brandon Work Phone: [facility] 11-25-2022 10:03-0400 Body height 173.35 cm NERY Jain LPN [facility]; [facility] Work Phone: 11-25-2022 10:03-0400 Body mass index (BMI) [Ratio] 23.4 kg/m2 NERY Jain LPN [facility]; [facility] Work Phone: 11-25-2022 10:03-0400 Body surface area Derived from formula 1.84 m2 NERY Jain LPN [facility]; [facility] Work Phone: 11-25-2022 10:03-0400 Body temperature 97.6 [degF] NERY Jain LPN [facility]; [facility] Work Phone: Comment on above: Method: Temporal 11-25-2022 10:03-0400 Body weight 70.31 kg NERY Jain LPN [facility]; [facility] Work Phone: 11-25-2022 10:03-0400 Diastolic blood pressure 80 mm[Hg] NERY Jain LPN [facility]; [facility] Work Phone: Comment on above: Patient Position: Sitting; Cuff Location : Left Arm; Cuff Size: Standard 11-25-2022 10:03-0400 Heart rate 74 /min NERY Jain LPN [facility]; [facility] Work Phone: Comment on above: Pattern: Regular 11-25-2022 10:03-0400 Respiratory rate 18 /min NERY Jain LPN [facility]; [facility] Work Phone: Comment on above: Pattern: Unlabored 11-25-2022 10:03-0400 SaO2% (BldA) [Mass fraction] 95 % NERY Jain LPN [facility]; [facility] Work Phone: Comment on above: Room air 11-25-2022 10:03-0400 Systolic blood pressure 140 mm[Hg] NERY Jain LPN [facility]; [facility] Work Phone: Comment on above: Patient Position: Sitting; Cuff Location : Left Arm; Cuff Size: Standard 11-23-2022 10:18-0400 Body mass index (BMI) [Ratio] 25.2 kg/m2 Dr. Kristina Brandon Work Phone: [facility] 11-23-2022 10:18-0400 Body temperature 98.2 [degF] Dr. Kristina Brandon Work Phone: [facility] 11-23-2022 10:18-0400 Body weight 70.[address] Kristina Brandon Work Phone: [facility] 11-23-2022 10:18-0400 Diastolic blood pressure 75 mm[Hg] Dr. Kristina Brandon Work Phone: [facility] 11-23-2022 10:18-0400 Heart rate 72 /min Dr. Kristina Brandon Work Phone: [facility] 11-23-2022 10:18-0400 Respiratory rate 16 /min Dr. Kristina Brandon Work Phone: [facility] 11-23-2022 10:18-0400 SaO2% (BldA) [Mass fraction] 99 % Dr. Kristina Brandon Work Phone: [facility] 11-23-2022 10:18-0400 Systolic blood pressure 142 mm[Hg] Dr. Kristina Brandon Work Phone: [facility] 11-21-2022 12:50-0400 Body height 167.[address] Kristina Brandon Work Phone: [facility] 11-21-2022 12:50-0400 Body mass index (BMI) [Ratio] 24.8 kg/m2 Dr. Kristina Brandon Work Phone: [facility] 11-21-2022 12:50-0400 Body temperature 97.3 [degF] Dr. Kristina Brandon Work Phone: [facility] 11-21-2022 12:50-0400 Body weight 69.[address] Kristina Brandon Work Phone: [facility] 11-21-2022 12:50-0400 Diastolic blood pressure 74 mm[Hg] Dr. Kristina Brandon Work Phone: [facility] 11-21-2022 12:50-0400 Heart rate 72 /min Dr. Kristina Brandon Work Phone: [facility] 11-21-2022 12:50-0400 Respiratory rate 12 /min Dr. Kristina Brandon Work Phone: [facility] 11-21-2022 12:50-0400 SaO2% (BldA) [Mass fraction] 98 % Dr. Kristina Brandon Work Phone: [facility] 11-21-2022 12:50-0400 Systolic blood pressure 169 mm[Hg] Dr. Kristina Brandon Work Phone: [facility] 11-10-2022 10:20-0400 Body height 173.35 cm Asterdominguez Malcolm DON [facility]; [facility] Work Phone: 11-10-2022 10:20-0400 Body mass index (BMI) [Ratio] 23.4 kg/m2 Aster Malcolm DON [facility]; [facility] Work Phone: 11-10-2022 10:20-0400 Body surface area Derived from formula 1.84 m2 Asterdominguez Malcolm DON [facility]; [facility] Work Phone: 11-10-2022 10:20-0400 Body temperature 98.1 [degF] Asterdominguez Malcolm DON [facility]; [facility] Work Phone: 11-10-2022 10:20-0400 Body weight 70.31 kg Aster Malcolm LPN [facility]; [facility] Work Phone: 11-10-2022 10:20-0400 Diastolic blood pressure 74 mm[Hg] Asterdominguez Malcolm DON [facility]; [facility] Work Phone: Comment on above: Patient Position: Sitting; Cuff Location : Left Arm; Cuff Size: Standard 11-10-2022 10:20-0400 Heart rate 71 /min Asterdominguez Malcolm DON [facility]; [facility] Work Phone: Comment on above: Pattern: Regular 11-10-2022 10:20-0400 Respiratory rate 16 /min Asterdominguez Malcolm DON [facility]; [facility] Work Phone: Comment on above: Pattern: Unlabored 11-10-2022 10:20-0400 SaO2% (BldA) [Mass fraction] 98 % Aster Gold LPN [facility]; [facility] Work Phone: Comment on above: Room air 11-10-2022 10:20-0400 Systolic blood pressure 120 mm[Hg] Aster Malcolm LPN [facility]; [facility] Work Phone: Comment on above: Patient Position: Sitting; Cuff Location : Left Arm; Cuff Size: Standard 10-28-2022 10:37-0400 Body height 173.35 cm [facility]; [facility] Work Phone: 10-28-2022 10:37-0400 Body mass index (BMI) [Ratio] 23.77 kg/m2 [facility]; [facility] Work Phone: 10-28-2022 10:37-0400 Body surface area Derived from formula 1.85 m2 [facility]; [facility] Work Phone: 10-28-2022 10:37-0400 Body temperature 97.3 [degF] [facility]; [facility] Work Phone: 10-28-2022 10:37-0400 Body weight 71.44 kg [facility]; [facility] Work Phone: 10-28-2022 10:37-0400 Diastolic blood pressure 68 mm[Hg] [facility]; [facility] Work Phone: Comment on above: Patient Position: Sitting; Cuff Location : Left Arm; Cuff Size: Standard 10-28-2022 10:37-0400 Heart rate 67 /min [facility]; [facility] Work Phone: Comment on above: Pattern: Regular 10-28-2022 10:37-0400 Respiratory rate 16 /min [facility]; [facility] Work Phone: Comment on above: Pattern: Unlabored 10-28-2022 10:37-0400 SaO2% (BldA) [Mass fraction] 98 % [facility]; [facility] Work Phone: Comment on above: Room air 10-28-2022 10:37-0400 Systolic blood pressure 128 mm[Hg] [facility]; [facility] Work Phone: Comment on above: Patient Position: Sitting; Cuff Location : Left Arm; Cuff Size: Standard 10-19-2022 10:28-0400 Body mass index (BMI) [Ratio] 25.2 kg/m2 Dr. Kristina Brandon Work Phone: [facility] 10-19-2022 10:28-0400 Body temperature 98.6 [degF] Dr. Kristina Brandon Work Phone: [facility] 10-19-2022 10:28-0400 Body weight 70.[address] Kristina Brandon Work Phone: [facility] 10-19-2022 10:28-0400 Diastolic blood pressure 80 mm[Hg] Dr. Kristina Brandon Work Phone: [facility] 10-19-2022 10:28-0400 Heart rate 70 /min Dr. Kristina Brandon Work Phone: [facility] 10-19-2022 10:28-0400 Respiratory rate 17 /min Dr. Kristina Brandon Work Phone: [facility] 10-19-2022 10:28-0400 SaO2% (BldA) [Mass fraction] 98 % Dr. Kristina Brandon Work Phone: [facility] 10-19-2022 10:28-0400 Systolic blood pressure 140 mm[Hg] Dr. Kristina Brandon Work Phone: [facility] 10-15-2022 08:10-0400 Body height 173.35 cm Sasha Medina CMA [facility]; [facility] Work Phone: 10-15-2022 08:10-0400 Body mass index (BMI) [Ratio] 23.77 kg/m2 Sasha Medina [facility]; [facility] Work Phone: 10-15-2022 08:10-0400 Body surface area Derived from formula 1.85 m2 Sasha Medina [facility]; [facility] Work Phone: 10-15-2022 08:10-0400 Body temperature 97.5 [degF] Sasha Medina CMA [facility]; [facility] Work Phone: Comment on above: Method: Thermal Scan 10-15-2022 08:10-0400 Body weight 71.44 kg Sasha Medina CMA [facility]; [facility] Work Phone: 10-15-2022 08:10-0400 Diastolic blood pressure 70 mm[Hg] Sasha Medina CMA [facility]; [facility] Work Phone: Comment on above: Patient Position: Sitting; Cuff Location : Left Arm; Cuff Size: Standard 10-15-2022 08:10-0400 Heart rate 71 /min Sasha Medina CMA [facility]; [facility] Work Phone: Comment on above: Pattern: Regular 10-15-2022 08:10-0400 Respiratory rate 16 /min Sasha Medina CMA [facility]; [facility] Work Phone: Comment on above: Pattern: Unlabored 10-15-2022 08:10-0400 SaO2% (BldA) [Mass fraction] 98 % Sasha Medina CMA [facility]; [facility] Work Phone: Comment on above: Room air 10-15-2022 08:10-0400 Systolic blood pressure 118 mm[Hg] Sasha Medina CMA [facility]; [facility] Work Phone: Comment on above: Patient Position: Sitting; Cuff Location : Left Arm; Cuff Size: Standard 09-16-2022 10:22-0400 Body mass index (BMI) [Ratio] 25 kg/m2 Dr. Kristina Brandon Work Phone: [facility] 09-16-2022 10:22-0400 Body temperature 98.7 [degF] Dr. Kristina Brandon Work Phone: [facility] 09-16-2022 10:22-0400 Body weight 70.[address] Kristina Brandon Work Phone: [facility] 09-16-2022 10:22-0400 Diastolic blood pressure 82 mm[Hg] Dr. Kristina Brandon Work Phone: [facility] 09-16-2022 10:22-0400 Heart rate 74 /min Dr. Kristina Brandon Work Phone: [facility] 09-16-2022 10:22-0400 Respiratory rate 18 /min Dr. Kristina Brandon Work Phone: [facility] 09-16-2022 10:22-0400 SaO2% (BldA) [Mass fraction] 98 % Dr. Kristina Brandon Work Phone: [facility] 09-16-2022 10:22-0400 Systolic blood pressure 146 mm[Hg] Dr. Kristina Brandon Work Phone: [facility] 08-26-2022 14:27-0400 Body mass index (BMI) [Ratio] 25 kg/m2 Dr. Kristina Brandon Work Phone: [facility] 08-26-2022 14:27-0400 Body temperature 98.9 [degF] Dr. Kristina Brandon Work Phone: [facility] 08-26-2022 14:27-0400 Body weight 70.[address] Kristina Brandon Work Phone: [facility] 08-26-2022 14:27-0400 Diastolic blood pressure 70 mm[Hg] Dr. Kristina Brandon Work Phone: [facility] 08-26-2022 14:27-0400 Heart rate 76 /min Dr. Kristina Brandon Work Phone: [facility] 08-26-2022 14:27-0400 Respiratory rate 17 /min Dr. Kristina Brandon Work Phone: [facility] 08-26-2022 14:27-0400 SaO2% (BldA) [Mass fraction] 97 % Dr. Kristina Brandon Work Phone: [facility] 08-26-2022 14:27-040 Systolic blood pressure 138 mm[Hg] Dr. Kristina Brandon Work Phone: [facility] 08-23-2022 14:23-0400 Body height 173.35 cm Stacie Tiararb [employer]UR[employer]IES ADVISER [facility]; [facility] Work Phone: Comment on above: Per patient report 08-23-2022 14:23-0400 Body mass index (BMI) [Ratio] 23.55 kg/m2 Stacie Slarb [employer]URITIES ADVISER [facility]; [facility] Work Phone: Comment on above: Per patient report 08-23-2022 14:23-0400 Body surface area Derived from formula 1.84 m2 Stacie Tiararb SECURITIES ADVISER [facility]; [facility] Work Phone: Comment on above: Per patient report 08-23-2022 [id number] Body weight 70.76 kg Stacie Slarb SECURITIES ADVISER [facility]; [facility] Work Phone: Comment on above: Per patient report 08-23-2022 14:23-040 Heart rate 77 /min Stacie Slarb SECURITIES ADVISER [facility]; [facility] Work Phone: Comment on above: Pattern: Regular Per patient report 08-23-2022 14:23-0400 SaO2% (BldA) [Mass fraction] 90 % Stacie Slarb SECURITIES ADVISER [facility]; [facility] Work Phone: Comment on above: Room air Per patient report 08-18-2022 10:10-0400 Body mass index (BMI) [Ratio] 25.5 kg/m2 Dr. Kristina Brandon Work Phone: [facility] 08-18-2022 10:10-0400 Body temperature 98 [degF] Dr. Kristina Brandon Work Phone: [facility] 08-18-2022 10:10-0400 Body weight 71.[address] Kristina Brandon Work Phone: [facility] 08-18-2022 10:10-0400 Diastolic blood pressure 80 mm[Hg] Dr. Kristina Brandon Work Phone: [facility] 08-18-2022 10:10-0400 Heart rate 75 /min Dr. Kristina Brandon Work Phone: [facility] 08-18-2022 10:10-0400 Respiratory rate 17 /min Dr. Kristina Brandon Work Phone: [facility] 08-18-2022 10:10-0400 SaO2% (BldA) [Mass fraction] 98 % Dr. Kristina Brandon Work Phone: [facility] 08-18-2022 10:10-0400 Systolic blood pressure 138 mm[Hg] Dr. Kristina Brandon Work Phone: [facility] 08-02-2022 14:35-0400 Body height 173.35 cm Edda L[facility]pez [facility]; [facility] Work Phone: 08-02-2022 14:35-0400 Body mass index (BMI) [Ratio] 23.55 kg/m2 Edda Saldivar MA [facility]; [facility] Work Phone: 08-02-2022 14:35-0400 Body surface area Derived from formula 1.84 m2 Edda Saldivar MA [facility]; [facility] Work Phone: 08-02-2022 14:35-0400 Body temperature 97.1 [degF] Edda Saldivar MA [facility]; [facility] Work Phone: Comment on above: Method: Infrared 08-02-2022 14:35-0400 Body weight 70.76 kg Edda Saldivar MA [facility]; [facility] Work Phone: 08-02-2022 14:35-0400 Diastolic blood pressure 65 mm[Hg] Edda Saldivar MA [facility]; [facility] Work Phone: Comment on above: Patient Position: Sitting; Cuff Location : Left Arm; Cuff Size: Standard 08-02-2022 14:35-0400 Heart rate 78 /min Edda Saldivar MA [facility]; [facility] Work Phone: Comment on above: Pattern: Regular 08-02-2022 14:35-0400 Respiratory rate 16 /min Edda Saldivar MA [facility]; [facility] Work Phone: Comment on above: Pattern: Unlabored 08-02-2022 14:35-0400 SaO2% (BldA) [Mass fraction] 92 % Edda Saldivar MA [facility]; [facility] Work Phone: Comment on above: Room air 08-02-2022 14:35-0400 Systolic blood pressure 119 mm[Hg] Edda Saldivar MA [facility]; [facility] Work Phone: Comment on above: Patient Position: Sitting; Cuff Location : Left Arm; Cuff Size: Standard 04-16-2022 10:15-0500 Body height 173.35 cm Kristina Brandon DO Work Phone: [facility]; [facility] Work Phone: 04-16-2022 10:15-0500 Body mass index (BMI) [Ratio] 23.85 kg/m2 Kristina Brandon DO Work Phone: [facility]; [facility] Work Phone: 04-16-2022 10:15-0500 Body surface area Derived from formula 1.85 m2 Kristina Brandon DO Work Phone: [facility]; [facility] Work Phone: 04-16-2022 10:15-0500 Body temperature 97.6 [degF] Kristina Pandyaon DO Work Phone: [facility]; [facility] Work Phone: Comment on above: Method: Oral 04-16-2022 10:15-0500 Body weight 71.67 kg Kristina Brandon DO Work Phone: [facility]; [facility] Work Phone: 04-16-2022 10:15-0500 Diastolic blood pressure 70 mm[Hg] Kristina Pandyaon DO Work Phone: [facility]; [facility] Work Phone: Comment on above: Patient Position: Sitting; Cuff Location : Left Arm; Cuff Size: Standard 04-16-2022 10:15-0500 Heart rate 65 /min Kristina Roma DO Work Phone: [facility]; [facility] Work Phone: Comment on above: Pattern: Regular 04-16-2022 10:15-0500 Respiratory rate 16 /min Kristina Brandon DO Work Phone: [facility]; [facility] Work Phone: Comment on above: Pattern: Unlabored 04-16-2022 10:15-0500 SaO2% (BldA) [Mass fraction] 96 % Kristina Brandon DO Work Phone: [facility]; [facility] Work Phone: Comment on above: Room air 04-16-2022 10:15-0500 Systolic blood pressure 132 mm[Hg] Kristina Brandon DO Work Phone: [facility]; [facility] Work Phone: Comment on above: Patient Position: Sitting; Cuff Location : Left Arm; Cuff Size: Standard 04-07-2022 09:18-0500 Body height 173.35 cm [facility]; [facility] Work Phone: 04-07-2022 09:18-0500 Body mass index (BMI) [Ratio] 23.4 kg/m2 [facility]; [facility] Work Phone: 04-07-2022 09:18-0500 Body surface area Derived from formula 1.84 m2 [facility]; [facility] Work Phone: 04-07-2022 09:18-0500 Body temperature 98.1 [degF] Jean-Paul Chan [facility]; [facility] Work Phone: 04-07-2022 09:18-0500 Body weight 70.31 kg Jean-Paul Chan [facility]; [facility] Work Phone: 04-07-2022 09:18-0500 Diastolic blood pressure 80 mm[Hg] Jean-Paul Chan [facility]; [facility] Work Phone: Comment on above: Patient Position: Sitting; Cuff Location : Left Arm; Cuff Size: Standard 04-07-2022 09:18-0500 Heart rate 66 /min Jean-Paul Chan [facility]; [facility] Work Phone: Comment on above: Pattern: Regular 04-07-2022 09:18-0500 Respiratory rate 16 /min Jean-Paul Chan [facility]; [facility] Work Phone: Comment on above: Pattern: Unlabored 04-07-2022 09:18-0500 SaO2% (BldA) [Mass fraction] 96 % Jean-Paul Chan [facility]; [facility] Work Phone: Comment on above: Room air 04-07-2022 09:18-0500 Systolic blood pressure 130 mm[Hg] Jean-Paul Chan [facility]; [facility] Work Phone: Comment on above: Patient Position: Sitting; Cuff Location : Left Arm; Cuff Size: Standard 03-19-2022 13:45-0500 Body height 173.35 cm Yajaira Torres MA [facility]; [facility] Work Phone: 03-19-2022 13:45-0500 Body mass index (BMI) [Ratio] 23.4 kg/m2 Yajaira Torres MA [facility]; [facility] Work Phone: 03-19-2022 13:45-0500 Body surface area Derived from formula 1.84 m2 Yajaira Torres MA [facility]; [facility] Work Phone: 03-19-2022 13:45-0500 Body temperature 98 [degF] Yajaira Torres MA [facility]; [facility] Work Phone: 03-19-2022 13:45-0500 Body weight 70.31 kg Yajaira Torres MA [facility]; [facility] Work Phone: 03-19-2022 13:45-0500 Diastolic blood pressure 80 mm[Hg] Yajaira Torres MA [facility]; [facility] Work Phone: Comment on above: Patient Position: Sitting; Cuff Location : Left Arm; Cuff Size: Standard 03-19-2022 13:45-0500 Heart rate 77 /min Yajaira Torres MA [facility]; [facility] Work Phone: Comment on above: Pattern: Regular 03-19-2022 13:45-0500 Respiratory rate 16 /min Yajaira Torres MA [facility]; [facility] Work Phone: Comment on above: Pattern: Unlabored 03-19-2022 13:45-0500 SaO2% (BldA) [Mass fraction] 95 % Yajaira Torres MA [facility]; [facility] Work Phone: Comment on above: Room air 03-19-2022 13:45-0500 Systolic blood pressure 130 mm[Hg] Yajaira Torres MA [facility]; [facility] Work Phone: Comment on above: Patient Position: Sitting; Cuff Location : Left Arm; Cuff Size: Standard 03-11-2022 11:28-0500 Body height 167.[address] Kristina Brandon Work Phone: [facility] 03-11-2022 11:28-0500 Body mass index (BMI) [Ratio] 25.6 kg/m2 Dr. Kristina Brandon Work Phone: [facility] 03-11-2022 11:28-0500 Body temperature 98.9 [degF] Dr. Kristina Brandon Work Phone: [facility] 03-11-2022 11:28-0500 Body weight 71.[address] Kristina Brandon Work Phone: [facility] 03-11-2022 11:28-0500 Diastolic blood pressure 80 mm[Hg] Dr. Kristina Brandon Work Phone: [facility] 03-11-2022 11:28-0500 Heart rate 68 /min Dr. Kristina Brandon Work Phone: [facility] 03-11-2022 11:28-0500 Respiratory rate 17 /min Dr. Kristina Brandon Work Phone: [facility] 03-11-2022 11:28-0500 SaO2% (BldA) [Mass fraction] 98 % Dr. Kristina Brandon Work Phone: [facility] 03-11-2022 11:28-0500 Systolic blood pressure 140 mm[Hg] Dr. Kristina Brandon Work Phone: [facility] 02-20-2022 13:42-0500 Diastolic blood pressure 83 mm[Hg] Dr. Kristina Brandon Work Phone: [facility] 02-20-2022 13:42-0500 Heart rate 69 /min Dr. Kristina Brandon Work Phone: [facility] 02-20-2022 13:42-0500 Respiratory rate 15 /min Dr. Kristina Brandon Work Phone: [facility] 02-20-2022 13:42-0500 SaO2% (BldA) [Mass fraction] 98 % Dr. Kristina Brandon Work Phone: [facility] 02-20-2022 13:42-0500 Systolic blood pressure 122 mm[Hg] Dr. Kristina Brandon Work Phone: [facility] 02-20-2022 11:58-0500 Body mass index (BMI) [Ratio] 25 kg/m2 Dr. Kristina Brandon Work Phone: [facility] 02-20-2022 11:58-0500 Body temperature 97.7 [degF] Dr. Kristina Brandon Work Phone: [facility] 02-20-2022 11:58-0500 Body weight 70.[address] Kristina Brandon Work Phone: [facility] 02-07-2022 10:43-0500 Diastolic blood pressure 70 mm[Hg] Dr. Kristina Brandon Work Phone: [facility] 02-07-2022 10:43-0500 Heart rate 70 /min Dr. Kristina Brandon Work Phone: [facility] 02-07-2022 10:43-0500 Respiratory rate 14 /min Dr. Kristina Brandon Work Phone: [facility] 02-07-2022 10:43-0500 SaO2% (BldA) [Mass fraction] 97 % Dr. Kristina Brandon Work Phone: [facility] 02-07-2022 10:43-0500 Systolic blood pressure 160 mm[Hg] Dr. Kristina Brandon Work Phone: [facility] 02-07-2022 09:32-0500 Body temperature 98.1 [degF] Dr. Kristina Brandon Work Phone: [facility] 02-07-2022 09:28-0500 Body mass index (BMI) [Ratio] 25.3 kg/m2 Dr. Kristina Brandon Work Phone: [facility] 02-07-2022 09:28-0500 Body weight 71.[address] Kristina Brandon Work Phone: [facility] 01-26-2022 19:15-0500 Body mass index (BMI) [Ratio] 25.5 kg/m2 Dr. Kristina Brandon Work Phone: [facility] 01-26-2022 19:15-0500 Diastolic blood pressure 70 mm[Hg] Dr. Kristina Brandon Work Phone: [facility] 01-26-2022 19:15-0500 Systolic blood pressure 132 mm[Hg] Dr. Kristina Brandon Work Phone: [facility] 01-26-2022 15:09-0500 Body temperature 98.4 [degF] Dr. Kristina Brandon Work Phone: [facility] 01-26-2022 15:09-0500 Body weight 71.[address] Kristina Brandon Work Phone: [facility] 01-26-2022 15:09-0500 Heart rate 76 /min Dr. Kristina Brandon Work Phone: [facility] 01-26-2022 15:09-0500 Respiratory rate 17 /min Dr. Kristina Brandon Work Phone: [facility] 01-26-2022 15:09-0500 SaO2% (BldA) [Mass fraction] 98 % Dr. Kristina Brandon Work Phone: [facility] 12-30-2021 12:30-0400 Body height 173.35 cm Kristina Brandon DO Work Phone: [facility]; [facility] Work Phone: Comment on above: pt requested a visit through telemedicin e. withthe covid19 pandemic we are not bringing patients in the office. only those that need evaluations in person. Pt. is aware that the telemedicine available in this crisis time is not HIPPA secure and encrypted and give verbal agreement to proceed. - partial vs 12-30-2021 12:30-0400 Body mass index (BMI) [Ratio] 23.4 kg/m2 Kristina Brandon DO Work Phone: [facility]; [facility] Work Phone: Comment on above: pt requested a visit through telemedicin e. withthe covid19 pandemic we are not bringing patients in the office. only those that need evaluations in person. Pt. is aware that the telemedicine available in this crisis time is not HIPPA secure and encrypted and give verbal agreement to proceed. - partial vs 12-30-2021 12:30-0400 Body surface area Derived from formula 1.84 m2 Kristina Brandon DO Work Phone: [facility]; [facility] Work Phone: Comment on above: pt requested a visit through telemedicin e. withthe covid19 pandemic we are not bringing patients in the office. only those that need evaluations in person. Pt. is aware that the telemedicine available in this crisis time is not HIPPA secure and encrypted and give verbal agreement to proceed. - partial vs 12-30-2021 12:30-0400 Body weight 70.31 kg Kristina Brandon DO Work Phone: [facility]; [facility] Work Phone: Comment on above: pt requested a visit through telemedicin e. withthe covid19 pandemic we are not bringing patients in the office. only those that need evaluations in person. Pt. is aware that the telemedicine available in this crisis time is not HIPPA secure and encrypted and give verbal agreement to proceed. - partial vs 12-30-2021 12:30-0400 Diastolic blood pressure 78 mm[Hg] Kristina Brandon DO Work Phone: [facility]; [facility] Work Phone: Comment on above: Patient Position: Sitting pt requested a visit through telemedicine. withthe covid19 pandemic we are not bringing patients in the office. only those that need evaluations in person. Pt. is aware that the telemedicine available in this crisis time is not HIPPA secure and encrypted and give verbal agreement to proceed. - partial vs 12-30-2021 12:30-0400 Heart rate 76 /min Kristina Brandon DO Work Phone: [facility]; [facility] Work Phone: Comment on above: Pattern: Regular pt requested a visit through telemedicine. withthe covid19 pandemic we are not bringing patients in the office. only those that need evaluations in person. Pt. is aware that the telemedicine available in this crisis time is not HIPPA secure and encrypted and give verbal agreement to proceed. - partial vs 12-30-2021 12:30-0400 Systolic blood pressure 124 mm[Hg] Kristina Brandon DO Work Phone: [facility]; [facility] Work Phone: Comment on above: Patient Position: Sitting pt requested a visit through telemedicine. withthe covid19 pandemic we are not bringing patients in the office. only those that need evaluations in person. Pt. is aware that the telemedicine available in this crisis time is not HIPPA secure and encrypted and give verbal agreement to proceed. - partial vs 12-14-2021 13:11-0400 Body height 173.35 cm Yajaira Torres MA [facility]; [facility] Work Phone: 12-14-2021 13:11-0400 Body mass index (BMI) [Ratio] 23.43 kg/m2 Yajaira Torres MA [facility]; [facility] Work Phone: 12-14-2021 13:11-0400 Body surface area Derived from formula 1.84 m2 Yajaira Torres MA [facility]; [facility] Work Phone: 12-14-2021 13:11-0400 Body temperature 97.9 [degF] Yajaira Torres MA [facility]; [facility] Work Phone: 12-14-2021 13:11-0400 Body weight 70.42 kg Yajaira Torres MA [facility]; [facility] Work Phone: 12-14-2021 13:11-0400 Diastolic blood pressure 78 mm[Hg] Yajaira Torres MA [facility]; [facility] Work Phone: Comment on above: Patient Position: Sitting; Cuff Location : Left Arm; Cuff Size: Standard 12-14-2021 13:11-0400 Heart rate 76 /min Yajaira Torres MA [facility]; [facility] Work Phone: Comment on above: Pattern: Regular 12-14-2021 13:11-0400 Respiratory rate 16 /min Yajaira Torres MA [facility]; [facility] Work Phone: Comment on above: Pattern: Unlabored 12-14-2021 13:11-0400 SaO2% (BldA) [Mass fraction] 94 % Yajaira Torres MA [facility]; [facility] Work Phone: Comment on above: Room air 12-14-2021 13:11-0400 Systolic blood pressure 122 mm[Hg] Yajaira Torres MA [facility]; [facility] Work Phone: Comment on above: Patient Position: Sitting; Cuff Location : Left Arm; Cuff Size: Standard 11-13-2021 09:05-0400 Body height 173.35 cm Ann[facility]Marie [facility]; [facility] Work Phone: 11-13-2021 09:05-0400 Body mass index (BMI) [Ratio] 23.43 kg/m2 Ann-Marie [facility]; [facility] Work Phone: 11-13-2021 09:05-0400 Body surface area Derived from formula 1.84 m2 [facility]; [facility] Work Phone: 11-13-2021 09:05-0400 Body weight 70.42 kg [facility]; [facility] Work Phone: 10-20-2021 11:10-0400 Body height 167.[address] Brandt Dang Work Phone: [facility] Work Phone: 10-20-2021 11:10-0400 Body mass index (BMI) [Ratio] 24.8 kg/m2 Dr. Brandt Dang Work Phone: [facility] Work Phone: 10-20-2021 11:10-0400 Body temperature 99.6 [degF] Dr. Brandt Dang Work Phone: [facility] Work Phone: 10-20-2021 11:10-0400 Body weight 69.[address] Brandt Dang Work Phone: [facility] Work Phone: 10-20-2021 11:10-0400 Diastolic blood pressure 80 mm[Hg] Dr. Brandt Dang Work Phone: [facility] Work Phone: 10-20-2021 11:10-0400 Heart rate 70 /min Dr. Brandt Dang Work Phone: [facility] Work Phone: 10-20-2021 11:10-0400 Respiratory rate 16 /min Dr. Brandt Dang Work Phone: [facility] Work Phone: 10-20-2021 11:10-0400 SaO2% (BldA) [Mass fraction] 98 % Dr. Brandt Dang Work Phone: [facility] Work Phone: 10-20-2021 11:10-0400 Systolic blood pressure 160 mm[Hg] Dr. Brandt Dang Work Phone: [facility] Work Phone: 10-19-2021 13:32-0400 Body height 173.35 cm Jean-Paul Chan [facility]; [facility] Work Phone: 10-19-2021 13:32-0400 Body mass index (BMI) [Ratio] 23.43 kg/m2 Jean-Paul Chan [facility]; [facility] Work Phone: 10-19-2021 13:32-0400 Body surface area Derived from formula 1.84 m2 Jean-Paul Chan [facility]; [facility] Work Phone: 10-19-2021 13:32-0400 Body temperature 97.1 [degF] Jean-Paul Chan [facility] Comprehensiv e [facility]; [facility] Work Phone: 10-19-2021 13:32-0400 Body weight 70.42 kg Jean-Paul Chan [facility]; [facility] Work Phone: 10-19-2021 13:32-0400 Diastolic blood pressure 62 mm[Hg] Jean-Paul Chan [facility]; [facility] Work Phone: Comment on above: Patient Position: Sitting; Cuff Location : Left Arm; Cuff Size: Standard 10-19-2021 13:32-0400 Heart rate 71 /min Jean-Paul Chan [facility]; [facility] Work Phone: Comment on above: Pattern: Regular 10-19-2021 13:32-0400 Respiratory rate 18 /min Jean-Paul Witt [facility]; [facility] Work Phone: Comment on above: Pattern: Unlabored 10-19-2021 13:32-0400 SaO2% (BldA) [Mass fraction] 96 % [facility]; [facility] Work Phone: Comment on above: Room air 10-19-2021 13:32-0400 Systolic blood pressure 122 mm[Hg] Jean-Paul Chan [facility]; [facility] Work Phone: Comment on above: Patient Position: Sitting; Cuff Location : Left Arm; Cuff Size: Standard 09-30-2021 14:04-0400 Body height 173.35 cm Jean-Paul Chan [facility]; [facility] Work Phone: 09-30-2021 14:04-0400 Body mass index (BMI) [Ratio] 23.13 kg/m2 Jean-Paul Witt [facility]; [facility] Work Phone: 09-30-2021 14:04-0400 Body surface area Derived from formula 1.83 m2 Jean-Paul Witt [facility]; [facility] Work Phone: 09-30-2021 14:04-0400 Body temperature 97.1 [degF] Jean-Paul Witt [facility]; [facility] Work Phone: 09-30-2021 14:04-0400 Body weight 69.51 kg [facility]; [facility] Work Phone: 09-30-2021 14:04-0400 Diastolic blood pressure 64 mm[Hg] [facility]; [facility] Work Phone: Comment on above: Patient Position: Sitting; Cuff Location : Left Arm; Cuff Size: Standard 09-30-2021 14:04-0400 Heart rate 68 /min [facility]; [facility] Work Phone: Comment on above: Pattern: Regular 09-30-2021 14:04-0400 Respiratory rate 18 /min [facility] Com[facility]; [facility] Work Phone: Comment on above: Pattern: Unlabored 09-30-2021 14:04-0400 SaO2% (BldA) [Mass fraction] 97 % [facility]; [facility] Work Phone: Comment on above: Room air 09-30-2021 14:04-0400 Systolic blood pressure 118 mm[Hg] [facility]; [facility] Work Phone: Comment on above: Patient Position: Sitting; Cuff Location : Left Arm; Cuff Size: Standard 09-23-2021 09:15-0400 Body temperature 97.9 [degF] Dr. Brandt Dang Work Phone: [facility] Work Phone: 09-23-2021 09:15-0400 Diastolic blood pressure 64 mm[Hg] Dr. Brandt Dang Work Phone: [facility] Work Phone: 09-23-2021 09:15-0400 Heart rate 74 /min Dr. Brandt Dang Work Phone: [facility] Work Phone: 09-23-2021 09:15-0400 Respiratory rate 16 /min Dr. Brandt Dang Work Phone: [facility] Work Phone: 09-23-2021 09:15-0400 SaO2% (BldA) [Mass fraction] 97 % Dr. Brandt Dang Work Phone: [facility] Work Phone: 09-23-2021 09:15-0400 Systolic blood pressure 151 mm[Hg] Dr. Brandt Dang Work Phone: [facility] Work Phone: 09-22-2021 05:55-0400 Inhaled oxygen flow rate 2 L/min Dr. Brandt Dang Work Phone: [facility] Work Phone: 09-21-2021 22:09-0400 Body height 167.[address] Brandt Dang Work Phone: [facility] Work Phone: 09-21-2021 22:09-0400 Body mass index (BMI) [Ratio] 24 kg/m2 Dr. Brandt Dang Work Phone: [facility] Work Phone: 09-21-2021 22:09-0400 Body weight 67.[address] Brandt Dang Work Phone: [facility] Work Phone: 09-21-2021 20:28-0400 Body temperature 98.6 [degF] Dr. Brandt Dang Work Phone: [facility] Work Phone: 09-21-2021 20:28-0400 Diastolic blood pressure 75 mm[Hg] Dr. Brandt Dang Work Phone: [facility] Work Phone: 09-21-2021 20:28-0400 Heart rate 65 /min Dr. Brandt Dang Work Phone: [facility] Work Phone: 09-21-2021 20:28-0400 Respiratory rate 18 /min Dr. Brandt Dang Work Phone: [facility] Work Phone: 09-21-2021 20:28-0400 SaO2% (BldA) [Mass fraction] 99 % Dr. Brandt Dang Work Phone: [facility] Work Phone: 09-21-2021 20:28-0400 Systolic blood pressure 158 mm[Hg] Dr. Brandt Dang Work Phone: [facility] Work Phone: 09-21-2021 17:57-0400 Body height 167.[address] Brandt Dang Work Phone: [facility] Work Phone: 09-21-2021 17:57-0400 Body mass index (BMI) [Ratio] 23.7 kg/m2 Dr. Brandt Dang Work Phone: [facility] Work Phone: 09-21-2021 17:57-0400 Body weight 66.[address] Brandt aDng Work Phone: [facility] Work Phone: 09-15-2021 10:45-0400 Body height 173.35 cm Stacie Horta LPN [facility]; [facility] Work Phone: 09-15-2021 10:45-0400 Body mass index (BMI) [Ratio] 22.94 kg/m2 Stacie Horta LPN [facility]; [facility] Work Phone: 09-15-2021 10:45-0400 Body surface area Derived from formula 1.82 m2 Stacie Horta LPN [facility]; [facility] Work Phone: 09-15-2021 10:45-0400 Body temperature 99.3 [degF] Stacie Horta LPN [facility]; [facility] Work Phone: 09-15-2021 10:45-0400 Body weight 68.95 kg Stacie Slarb [employer] [facility]; [facility] Work Phone: 09-15-2021 10:45-0400 Diastolic blood pressure 80 mm[Hg] Stacie Slarb [employer] ADVIS[employer] [facility]; [facility] Work Phone: Comment on above: Patient Position: Sitting; Cuff Location : Left Arm; Cuff Size: Standard 09-15-2021 10:45-0400 Heart rate 74 /min Stacie Slarb [employer] ADVIS[employer] [facility]; [facility] Work Phone: Comment on above: Pattern: Regular 09-15-2021 10:45-0400 Respiratory rate 16 /min Stacie Slarb [employer] ADVIS[employer] [facility]; [facility] Work Phone: Comment on above: Pattern: Unlabored 09-15-2021 10:45-0400 SaO2% (BldA) [Mass fraction] 97 % Stacie Slarb [employer] ADVIS[employer] [facility]; [facility] Work Phone: Comment on above: Room air 09-15-2021 10:45-0400 Systolic blood pressure 142 mm[Hg] Stacie Slarb [employer] ADVIS[employer] [facility]; [facility] Work Phone: Comment on above: Patient Position: Sitting; Cuff Location : Left Arm; Cuff Size: Standard 09-15-2021 10:07-0400 Body mass index (BMI) [Ratio] 24.7 kg/m2 Dr. Brandt Dang Work Phone: [facility] Work Phone: 09-15-2021 10:07-0400 Body temperature 99.3 [degF] Dr. Brandt Dang Work Phone: [facility] Work Phone: 09-15-2021 10:07-0400 Body weight 69.[address] Brandt Dang Work Phone: [facility] Work Phone: 09-15-2021 10:07-0400 Diastolic blood pressure 86 mm[Hg] Dr. Brandt Dang Work Phone: [facility] Work Phone: 09-15-2021 10:07-0400 Heart rate 77 /min Dr. Brandt Dang Work Phone: [facility] Work Phone: 09-15-2021 10:07-0400 Respiratory rate 16 /min Dr. Brandt Dang Work Phone: [facility] Work Phone: 09-15-2021 10:07-0400 SaO2% (BldA) [Mass fraction] 95 % Dr. Brandt Dang Work Phone: [facility] Work Phone: 09-15-2021 10:07-0400 Systolic blood pressure 160 mm[Hg] Dr. Brandt Dang Work Phone: [facility] Work Phone: 08-27-2021 16:56-0400 Body temperature 99.2 [degF] Dr. Brandt Dang Work Phone: [facility] Work Phone: 08-27-2021 16:56-0400 Diastolic blood pressure 67 mm[Hg] Dr. Brandt Dang Work Phone: [facility] Work Phone: 08-27-2021 16:56-0400 Heart rate 69 /min Dr. Brandt Dang Work Phone: [facility] Work Phone: 08-27-2021 16:56-0400 Respiratory rate 20 /min Dr. Brandt Dang Work Phone: [facility] Work Phone: 08-27-2021 16:56-0400 SaO2% (BldA) [Mass fraction] 99 % Dr. Brandt Dang Work Phone: [facility] Work Phone: 08-27-2021 16:56-0400 Systolic blood pressure 131 mm[Hg] Dr. Brandt Dang Work Phone: [facility] Work Phone: 08-27-2021 15:49-0400 Body height 167.[address] Brandt Dang Work Phone: [facility] Work Phone: 08-27-2021 15:49-0400 Body mass index (BMI) [Ratio] 24.5 kg/m2 Dr. Brandt Dang Work Phone: [facility] Work Phone: 08-27-2021 15:49-0400 Body weight 68.[address] Brandt Dang Work Phone: [facility] Work Phone: 08-27-2021 11:01-0400 Body height 173.35 cm Ann-Marie Retana [facility]; [facility] Work Phone: Comment on above: no vs taken as this is phone encounter d ue to covid 08-27-2021 11:01-0400 Body mass index (BMI) [Ratio] 22.94 kg/m2 Ann-Marie Retana [facility]; [facility] Work Phone: Comment on above: no vs taken as this is phone encounter d ue to covid 08-27-2021 11:01-0400 Body surface area Derived from formula 1.82 m2 Ann-Marie Retana [facility]; [facility] Work Phone: Comment on above: no vs taken as this is phone encounter d ue to covid 08-27-2021 11:01-0400 Body weight 68.95 kg Ann-Marie Retana [facility]; [facility] Work Phone: Comment on above: no vs taken as this is phone encounter d ue to covid 08-24-2021 10:58-0400 Body temperature 97.3 [degF] Kristina Roma DO Work Phone: [facility]; [facility] Work Phone: Comment on above: Method: Oral partial vitals due t o virtual 08-24-2021 10:58-0400 Diastolic blood pressure 80 mm[Hg] Kristina Roma DO Work Phone: [facility]; [facility] Work Phone: Comment on above: Patient Position: Sitting partial vitals due t o virtual 08-24-2021 10:58-0400 Heart rate 80 /min Kristina Roma DO Work Phone: [facility]; [facility] Work Phone: Comment on above: Pattern: Regular partial vitals due t o virtual 08-24-2021 10:58-0400 Systolic blood pressure 130 mm[Hg] Kristina Roma DO Work Phone: [facility]; [facility] Work Phone: Comment on above: Patient Position: Sitting partial vitals due t o virtual 08-12-2021 10:03-0400 Body height 173.35 cm Ann-Marie Retana [facility]; [facility] Work Phone: 08-12-2021 10:03-0400 Body mass index (BMI) [Ratio] 22.94 kg/m2 Ann-Marie Retana [facility]; [facility] Work Phone: 08-12-2021 10:03-0400 Body surface area Derived from formula 1.82 m2 Ann-Marie Retana [facility]; [facility] Work Phone: 08-12-2021 10:03-0400 Body temperature 97.3 [degF] Ann-Marie Retana [facility] Com[facility]; [facility] Work Phone: Comment on above: Method: Infrared 08-12-2021 10:03-0400 Body weight 68.95 kg Ann-Marie Retana [facility]; [facility] Work Phone: 08-12-2021 10:03-0400 Diastolic blood pressure 80 mm[Hg] Ann-Marie Retana [facility]; [facility] Work Phone: Comment on above: Patient Position: Sitting; Cuff Location : Left Arm; Cuff Size: Standard 08-12-2021 10:03-0400 Heart rate 73 /min Ann-Marie Retana [facility]; [facility] Work Phone: Comment on above: Pattern: Regular 08-12-2021 10:03-0400 Respiratory rate 16 /min Ann-Marie Retana [facility]; [facility] Work Phone: Comment on above: Pattern: Unlabored 08-12-2021 10:03-0400 SaO2% (BldA) [Mass fraction] 98 % Ann-Marie Retana [facility]; [facility] Work Phone: Comment on above: Room air 08-12-2021 10:03-0400 Systolic blood pressure 161 mm[Hg] Ann-Marie Retana [facility]; [facility] Work Phone: Comment on above: Patient Position: Sitting; Cuff Location : Left Arm; Cuff Size: Standard 07-16-2021 14:14-0400 Body height 168.[address] Brandt Dang Work Phone: [facility] Work Phone: 07-16-2021 14:14-0400 Body mass index (BMI) [Ratio] 23.3 kg/m2 Dr. Brandt Dang Work Phone: [facility] Work Phone: 07-16-2021 14:14-0400 Body temperature 98.7 [degF] Dr. Brandt Dang Work Phone: [facility] Work Phone: 07-16-2021 14:14-0400 Body weight 66.[address] Brandt Dang Work Phone: [facility] Work Phone: 07-16-2021 14:14-0400 Diastolic blood pressure 72 mm[Hg] Dr. Brandt Dang Work Phone: [facility] Work Phone: 07-16-2021 14:14-0400 Heart rate 74 /min Dr. Brandt Dang Work Phone: [facility] Work Phone: 07-16-2021 14:14-0400 Respiratory rate 20 /min Dr. Brandt Dang Work Phone: [facility] Work Phone: 07-16-2021 14:14-0400 SaO2% (BldA) [Mass fraction] 99 % Dr. Brandt Dang Work Phone: [facility] Work Phone: 07-16-2021 14:14-0400 Systolic blood pressure 140 mm[Hg] Dr. Brandt Dang Work Phone: [facility] Work Phone: 07-03-2021 13:13-0400 Body height 173.35 cm Sasha Medina CMA [facility]; [facility] Work Phone: 07-03-2021 13:13-0400 Body mass index (BMI) [Ratio] 23.4 kg/m2 Sasha Medina CMA [facility]; [facility] Work Phone: 07-03-2021 13:13-0400 Body surface area Derived from formula 1.84 m2 Sasha Medina CMA [facility]; [facility] Work Phone: 07-03-2021 13:13-0400 Body temperature 97 [degF] Sasha Mednia CMA Compre[facility]; [facility] Work Phone: Comment on above: Method: Thermal Scan 07-03-2021 13:13-0400 Body weight 70.31 kg Sasha Medina CMA [facility]; [facility] Work Phone: 07-03-2021 13:13-0400 Diastolic blood pressure 68 mm[Hg] Sasha Medina [facility]; [facility] Work Phone: Comment on above: Patient Position: Sitting; Cuff Location : Left Arm; Cuff Size: Standard 07-03-2021 13:13-0400 Heart rate 79 /min Sasha Medina [employer] [facility]; [facility] Work Phone: Comment on above: Pattern: Regular 07-03-2021 13:13-0400 Respiratory rate 16 /min Sasha Medina [facility] Comprehensi ve [facility]; [facility] Work Phone: Comment on above: Pattern: Unlabored 07-03-2021 13:13-0400 Systolic blood pressure 130 mm[Hg] Sasha Medina [facility]; [facility] Work Phone: Comment on above: Patient Position: Sitting; Cuff Location : Left Arm; Cuff Size: Standard 05-27-2021 10:05-0400 Body height 173.35 cm Killian Oliveira LPN [facility]; [facility] Work Phone: 05-27-2021 10:05-0400 Body mass index (BMI) [Ratio] 23.4 kg/m2 Killian Oliveira LPN [facility]; [facility] Work Phone: 05-27-2021 10:05-0400 Body surface area Derived from formula 1.84 m2 Killian Oliveira LPN [facility]; [facility] Work Phone: 05-27-2021 10:05-0400 Body temperature 97.6 [degF] Killian Oliveira LPN [facility]; [facility] Work Phone: Comment on above: Method: Infrared 05-27-2021 10:05-0400 Body weight 70.31 kg Killian Oliveira LPN [facility]; [facility] Work Phone: 05-27-2021 10:05-0400 Diastolic blood pressure 72 mm[Hg] Killian Oliveira LPN [facility]; [facility] Work Phone: Comment on above: Patient Position: Sitting; Cuff Location : Left Arm; Cuff Size: Standard 05-27-2021 10:05-0400 Heart rate 73 /min Killian Oliveira LPN [facility]; [facility] Work Phone: Comment on above: Pattern: Regular 05-27-2021 10:05-0400 Respiratory rate 16 /min Killian Oliveira LPN [facility]; [facility] Work Phone: Comment on above: Pattern: Unlabored 05-27-2021 10:05-0400 SaO2% (BldA) [Mass fraction] 98 % Killian Oliveira LPN [facility]; [facility] Work Phone: Comment on above: Room air 05-27-2021 10:05-0400 Systolic blood pressure 120 mm[Hg] Killian Oliveira LPN [facility]; [facility] Work Phone: Comment on above: Patient Position: Sitting; Cuff Location : Left Arm; Cuff Size: Standard 05-18-2021 13:23-0400 Body height 173.35 cm Aster Malcolm LPN [facility]; [facility] Work Phone: 05-18-2021 13:23-0400 Body mass index (BMI) [Ratio] 23.4 kg/m2 Aster Malcolm LPN [facility]; [facility] Work Phone: 05-18-2021 13:23-0400 Body surface area Derived from formula 1.84 m2 Aster Malcolm LPN [facility]; [facility] Work Phone: 05-18-2021 13:23-0400 Body temperature 97.5 [degF] Aster Malcolm LPN [facility]; [facility] Work Phone: 05-18-2021 13:23-0400 Body weight 70.31 kg Aster Malcolm LPN [facility]; [facility] Work Phone: 05-18-2021 13:23-0400 Diastolic blood pressure 74 mm[Hg] Aster Malcolm LPN [facility]; [facility] Work Phone: Comment on above: Patient Position: Sitting; Cuff Location : Left Arm; Cuff Size: Standard 05-18-2021 13:23-0400 Heart rate 79 /min Aster Malcolm LPN [facility]; [facility] Work Phone: Comment on above: Pattern: Regular 05-18-2021 13:23-0400 Respiratory rate 16 /min Aster Malcolm LPN [facility]; [facility] Work Phone: Comment on above: Pattern: Unlabored 05-18-2021 13:23-0400 SaO2% (BldA) [Mass fraction] 98 % Aster Malcolm LPN [facility]; [facility] Work Phone: Comment on above: Room air 05-18-2021 13:23-0400 Systolic blood pressure 158 mm[Hg] Aster Malcolm LPN [facility]; [facility] Work Phone: Comment on above: Patient Position: Sitting; Cuff Location : Left Arm; Cuff Size: Standard 05-13-2021 09:15-0400 Body height 173.35 cm Killian Oliveira LPN [facility]; [facility] Work Phone: Comment on above: will check and report to [facility] 05-13-2021 09:15-0400 Body mass index (BMI) [Ratio] 23.4 kg/m2 Killian Oliveira LPN [facility]; [facility] Work Phone: Comment on above: will check and report to [facility] 05-13-2021 09:15-0400 Body surface area Derived from formula 1.84 m2 Killian Oliveira LPN [facility]; [facility] Work Phone: Comment on above: will check and report to [facility] 05-13-2021 09:15-0400 Body weight 70.31 kg Killian Oliveira LPN [facility]; [facility] Work Phone: Comment on above: will check and report to [facility] 05-06-2021 09:52-0500 Body height 173.35 cm Killian Oliveira LPN [facility]; [facility] Work Phone: 05-06-2021 09:52-0500 Body mass index (BMI) [Ratio] 23.4 kg/m2 Killian Oliveira LPN [facility]; [facility] Work Phone: 05-06-2021 09:52-0500 Body surface area Derived from formula 1.84 m2 Killian Oliveira LPN [facility]; [facility] Work Phone: 05-06-2021 09:52-0500 Body temperature 97.8 [degF] Killian Oliveira LPN [facility]; [facility] Work Phone: Comment on above: Method: Infrared 05-06-2021 09:52-0500 Body weight 70.31 kg Killian Oliveira LPN [facility]; [facility] Work Phone: 05-06-2021 09:52-0500 Diastolic blood pressure 72 mm[Hg] Killian Oliveira LPN [facility]; [facility] Work Phone: Comment on above: Patient Position: Sitting; Cuff Location : Left Arm; Cuff Size: Standard 05-06-2021 09:52-0500 Heart rate 84 /min Killian Oliveira LPN [facility]; [facility] Work Phone: Comment on above: Pattern: Regular 05-06-2021 09:52-0500 Respiratory rate 16 /min Killian Oliveira LPN [facility]; [facility] Work Phone: Comment on above: Pattern: Unlabored 05-06-2021 09:52-0500 SaO2% (BldA) [Mass fraction] 95 % Killian Oliveira LPN [facility]; [facility] Work Phone: Comment on above: Room air 05-06-2021 09:52-0500 Systolic blood pressure 124 mm[Hg] Killian Oliveira LPN [facility]; [facility] Work Phone: Comment on above: Patient Position: Sitting; Cuff Location : Left Arm; Cuff Size: Standard 04-08-2021 08:45-0500 Body height 173.35 cm Ann-Marie Retana [facility]; [facility] Work Phone: Comment on above: no vs taken as this is phone encounter d ue to covid 04-08-2021 08:45-0500 Body mass index (BMI) [Ratio] 23.61 kg/m2 Ann-Marie Gomezius [facility]; [facility] Work Phone: Comment on above: no vs taken as this is phone encounter d ue to covid 04-08-2021 08:45-0500 Body surface area Derived from formula 1.85 m2 Ann-Marie Retana [facility]; [facility] Work Phone: Comment on above: no vs taken as this is phone encounter d ue to covid 04-08-2021 08:45-0500 Body weight 70.94 kg Ann-Marie Retana [facility]; [facility] Work Phone: Comment on above: no vs taken as this is phone encounter d ue to covid 03-20-2021 10:34-0500 Body height 173.35 cm Killian Oliveira LPN [facility]; [facility] Work Phone: Comment on above: is going to check and report to [facility] 03-20-2021 10:34-0500 Body mass index (BMI) [Ratio] 23.61 kg/m2 Killian Oliveira SECURITIES ADVISER [facility]; [facility] Work Phone: Comment on above: is going to check and report to [facility] 03-20-2021 10:34-0500 Body surface area Derived from formula 1.85 m2 Killian Oliveira SECURITIES ADVISER [facility]; [facility] Work Phone: Comment on above: is going to check and report to [facility] 03-20-2021 10:34-0500 Body weight 70.94 kg Killian Oliveira SECURITIES ADVISER [facility]; [facility] Work Phone: Comment on above: is going to check and report to [facility] 03-18-2021 11:10-0500 Body height 173.35 cm Dhaval Israel VP CLINICAL Work Phone: [facility]; [facility] Work Phone: Comment on above: will check and report to [facility] 03-18-2021 11:10-0500 Body mass index (BMI) [Ratio] 2.32 kg/m2 Dhaval Israel VP CLINICAL Work Phone: [facility]; [facility] Work Phone: Comment on above: will check and report to [facility] 03-18-2021 11:10-0500 Body surface area Derived from formula 0.69 m2 Dhaval Israel CNP Work Phone: [facility]; [facility] Work Phone: Comment on above: will check and report to [facility] 03-18-2021 11:10-0500 Body temperature 97.1 [degF] Dhaval Israel CNP Work Phone: [facility]; [facility] Work Phone: Comment on above: will check and report to [facility] 03-18-2021 11:10-0500 Body weight 6.99 kg Dhaval Israel CNP Work Phone: [facility]; [facility] Work Phone: Comment on above: will check and report to [facility] 03-18-2021 11:10-0500 Diastolic blood pressure 77 mm[Hg] Dhaval Israel CNP Work Phone: [facility]; [facility] Work Phone: Comment on above: Patient Position: Supine; Cuff Location: Right Arm; Cuff Size: Standard will check and repor t to [facility] 03-18-2021 11:10-0500 Systolic blood pressure 160 mm[Hg] Dhaval Israel CNP Work Phone: [facility]; [facility] Work Phone: Comment on above: Patient Position: Supine; Cuff Location: Right Arm; Cuff Size: Standard will check and repor t to [facility] 02-06-2021 09:56-0500 Body height 173.35 cm Killian Oliveira LPN [facility]; [facility] Work Phone: 02-06-2021 09:56-0500 Body mass index (BMI) [Ratio] 23.61 kg/m2 Killian Oliveira LPN [facility]; [facility] Work Phone: 02-06-2021 09:56-0500 Body surface area Derived from formula 1.85 m2 Killian Oliveira LPN [facility]; [facility] Work Phone: 02-06-2021 09:56-0500 Body temperature 97.8 [degF] Killian Oliveira LPN [facility]; [facility] Work Phone: Comment on above: Method: Infrared 02-06-2021 09:56-0500 Body weight 70.94 kg Killian Oliveira LPN [facility]; [facility] Work Phone: 02-06-2021 09:56-0500 Diastolic blood pressure 70 mm[Hg] Killian Oliveira LPN [facility]; [facility] Work Phone: Comment on above: Patient Position: Sitting; Cuff Location : Left Arm; Cuff Size: Standard 02-06-2021 09:56-0500 Heart rate 84 /min Killian Oliveira LPN [facility]; [facility] Work Phone: Comment on above: Pattern: Regular 02-06-2021 09:56-0500 Respiratory rate 16 /min Killian Oliveira LPN [facility]; [facility] Work Phone: Comment on above: Pattern: Unlabored 02-06-2021 09:56-0500 SaO2% (BldA) [Mass fraction] 98 % Killian Oliveira LPN [facility]; [facility] Work Phone: Comment on above: Room air 02-06-2021 09:56-0500 Systolic blood pressure 138 mm[Hg] Killian Oliveira LPN [facility]; [facility] Work Phone: Comment on above: Patient Position: Sitting; Cuff Location : Left Arm; Cuff Size: Standard 10-06-2020 09:21-0400 Body height 173.35 cm Ann-Marie Retana [facility]; [facility] Work Phone: 10-06-2020 09:21-0400 Body mass index (BMI) [Ratio] 22.35 kg/m2 Ann-Marie Retana [facility]; [facility] Work Phone: 10-06-2020 09:21-0400 Body surface area Derived from formula 1.8 m2 Ann-Marie Retana [facility]; [facility] Work Phone: 10-06-2020 09:21-0400 Body temperature 97.2 [degF] Ann-Marie Retana CMA [facility]; [facility] Work Phone: Comment on above: Method: Infrared 10-06-2020 09:21-0400 Body weight 67.16 kg Ann-Marie Retana CMA [facility]; [facility] Work Phone: 10-06-2020 09:21-0400 Diastolic blood pressure 70 mm[Hg] Ann-Marie Retana CMA [facility]; [facility] Work Phone: Comment on above: Patient Position: Sitting; Cuff Location : Left Arm; Cuff Size: Standard 10-06-2020 09:21-0400 Heart rate 70 /min Ann-Marie Retana [facility]; [facility] Work Phone: Comment on above: Pattern: Regular 10-06-2020 09:21-0400 Respiratory rate 18 /min Ann-Marie Retana CMA [facility]; [facility] Work Phone: Comment on above: Pattern: Unlabored 10-06-2020 09:21-0400 SaO2% (BldA) [Mass fraction] 98 % Ann-Marie Retana [facility]; [facility] Work Phone: Comment on above: Room air 10-06-2020 09:21-0400 Systolic blood pressure 138 mm[Hg] Ann-Marie Retana [facility]; [facility] Work Phone: Comment on above: Patient Position: Sitting; Cuff Location : Left Arm; Cuff Size: Standard 07-29-2020 09:56-0400 Body height 173.35 cm Killian Oliveira LPN [facility]; [facility] Work Phone: 07-29-2020 09:56-0400 Body mass index (BMI) [Ratio] 22.65 kg/m2 Killian Oliveira LPN [facility]; [facility] Work Phone: 07-29-2020 09:56-0400 Body surface area Derived from formula 1.81 m2 Killian Oliveira LPN [facility]; [facility] Work Phone: 07-29-2020 09:56-0400 Body temperature 97.3 [degF] Killian Oliveira LPN [facility]; [facility] Work Phone: Comment on above: Method: Infrared 07-29-2020 09:56-0400 Body weight 68.06 kg Killian Oliveira LPN [facility]; [facility] Work Phone: 07-29-2020 09:56-0400 Diastolic blood pressure 72 mm[Hg] Killian Oliveira LPN [facility]; [facility] Work Phone: Comment on above: Patient Position: Sitting; Cuff Location : Left Arm; Cuff Size: Standard 07-29-2020 09:56-0400 Heart rate 81 /min Killian Oliveira LPN [facility]; [facility] Work Phone: Comment on above: Pattern: Regular 07-29-2020 09:56-0400 Respiratory rate 16 /min Killian Oliveira LPN [facility]; [facility] Work Phone: Comment on above: Pattern: Unlabored 07-29-2020 09:56-0400 SaO2% (BldA) [Mass fraction] 99 % Killian Oliveira LPN [facility]; [facility] Work Phone: Comment on above: Room air 07-29-2020 09:56-0400 Systolic blood pressure 136 mm[Hg] Killian Oliveira LPN [facility]; [facility] Work Phone: Comment on above: Patient Position: Sitting; Cuff Location : Left Arm; Cuff Size: Standard 07-15-2020 11:06-0400 Body height 173.35 cm Killian Oliveira LPN [facility]; [facility] Work Phone: 07-15-2020 11:06-0400 Body mass index (BMI) [Ratio] 22.34 kg/m2 Killian Oliveira LPN [facility]; [facility] Work Phone: 07-15-2020 11:06-0400 Body surface area Derived from formula 1.8 m2 Killian Oliveira LPN [facility]; [facility] Work Phone: 07-15-2020 11:06-0400 Body temperature 97.3 [degF] Killian Oliveira LPN [facility]; [facility] Work Phone: Comment on above: Method: Infrared 07-15-2020 11:06-0400 Body weight 67.14 kg Killian Oliveira LPN [facility]; [facility] Work Phone: 07-15-2020 11:06-0400 Diastolic blood pressure 80 mm[Hg] Killian Oliveira LPN [facility]; [facility] Work Phone: Comment on above: Patient Position: Sitting; Cuff Location : Left Arm; Cuff Size: Standard 07-15-2020 11:06-0400 Heart rate 84 /min Killian Oliveira LPN [facility]; [facility] Work Phone: Comment on above: Pattern: Regular 07-15-2020 11:06-0400 Respiratory rate 16 /min Killian Oliveira LPN [facility]; [facility] Work Phone: Comment on above: Pattern: Unlabored 07-15-2020 11:06-0400 SaO2% (BldA) [Mass fraction] 98 % Killian Oliveira LPN [facility]; [facility] Work Phone: Comment on above: Room air 07-15-2020 11:06-0400 Systolic blood pressure 122 mm[Hg] Killian Oliveira LPN [facility]; [facility] Work Phone: Comment on above: Patient Position: Sitting; Cuff Location : Left Arm; Cuff Size: Standard Encounters Encounter Date Encounter Type Care Provider Facility Start: 12-17-2024 End: 12-17-[address] Brandt Dang MD -[facility] Work Phone: Start: 12-17-2024 End: 12-17-2024 ambulatory Jaclyn Siddiqui Facility:[facility] Start: 12-06-2024 End: 12-06-2024 ambulatory EBEN PIPER Facility:[facility] [place] Start: 11-22-2024 ambulatory EBEN PIPER Facilit y:[facility] [place] Start: 11-20-2024 End: 11-20-2024 Emergency department patient visit TORSTEN AYALA MD [facility] Start: 11-19-2024 End: 11-19-[address] Brandt Dang MD -[facility] Work Phone: Start: 11-19-2024 End: 11-19-[address] Jaclyn Siddiqui MD Work Phone: [facility] Start: 10-18-2024 End: 10-18-[address] Brandt Dang MD -[facility] Work Phone: Start: 10-18-2024 End: 10-18-[address] Jaclyn Siddiuqi MD Work Phone: [facility] Start: 10-09-2024 End: 10-09-[address] Brandt Dang MD -[facility] Work Phone: Start: 10-09-2024 End: 10-09-[address] Jaclyn Siddiqui MD Work Phone: [facility] Start: 10-05-2024 End: 10-09-2024 ambulatory Zara Galloway APRN.VP CLINICAL Work Phone: [facility] Start: 10-05-2024 End: 10-09-2024 Patient encounter procedure Zara Galloway APRN.VP CLINICAL Work Phone: [facility] Comment on above: Transfer Meds [facility] to [facility] Start: 09-17-2024 End: 09-17-[address] Brandt Dang MD -[facility] Work Phone: Start: 09-17-2024 End: 09-17-[address] Jaclyn Siddiqui MD Work Phone: [facility] Start: 09-03-2024 End: 09-03-2024 Refcynthia Piper APRN.VP CLINICAL Work Phone: [facility] Comment on above: Refill Request Start: 08-22-2024 End: 08-22-2024 Patient encounter procedure Nelson Torrez MD Work Phone: General Surgery Comment on above: Basal cell carcinoma (BCC) of left upper arm (Primary Dx); Skin lesion of left arm Start: 08-22-2024 End: 08-22-2024 ambulatory INDIO MEDINA Facility:[facility] [place] Start: 08-16-2024 End: 08-16-[address] Brandt Dang MD -[facility] Work Phone: Start: 08-16-2024 End: 08-16-[address] Jaclyn Siddiqui MD Work Phone: [facility] Work Phone: Start: 08-14-2024 End: 08-14-2024 Orders Only Enmanuel Lockwood MD Work Phone: [facility] Comment on above: Colon cancer screeni ng (Primary Dx) Start: 08-02-2024 End: 08-02-2024 Telephone encounter Nelson Torrez MD Work Phone: General Surgery Comment on above: Appointment Start: 08-02-2024 End: 08-02-2024 Patient encounter procedure Nelson Torrez MD Work Phone: General Surgery Comment on above: Basal cell carcinoma (BCC) of left upper arm (Primary Dx) Start: 08-02-2024 ambulatory NELSON TORREZ Facil ity:[facility] [place] Start: 07-31-2024 End: 07-31-2024 Refill Indio Medina MD Work Phone: [facility] Comment on above: Refill Request Start: 07-16-2024 End: 07-16-[address] Brandt Dang MD -[facility] Work Phone: Start: 07-16-2024 End: 07-16-[address] Jaclyn Siddiqui MD Work Phone: [facility] Work Phone: Start: 06-15-2024 End: 06-15-2024 Follow-up encounter Sofía Alexandre LPN [facility] Comment on above: Results Start: 06-13-2024 End: 06-13-2024 ambulatory Zara Patellogteo DEFENSE ANALYST.VP CLINICAL Work Phone: [facility] Comment on above: Vaccines Start: 06-12-2024 End: 06-12-[address] Brandt Dang MD -[facility] Work Phone: Start: 06-12-2024 End: 06-12-2024 ambulatory Brandt Dang Facility:[facility] Start: 06-06-2024 End: 06-06-2024 Patient encounter procedure Zara Patellogteo DEFENSE ANALYST.VP CLINICAL Work Phone: [facility] Comment on above: Encounter to [facility] (Primary Dx); Mixed hyperlipidemia; Hypertension, essential; CYNTHIA (obstructive sleep apnea); H/O splenectomy; Essential tremor; Stage 3 chronic kidney disease, unspecified whether stage 3a or 3b CKD (HCC) Start: 06-06-2024 End: 06-06-2024 ambulatory INDIO MEDINA Facility:[facility] [place] Start: 05-14-2024 End: 05-14-[address] Brandt Dang MD -[facility] Work Phone: Start: 05-14-2024 End: 05-14-2024 ambulatory Jaclyn Siddiqui Facility:[facility] Start: 05-08-2024 End: 05-08-2024 Telephone encounter Radha Macias RN [facility] Comment on above: Returning Patient's Call Start: 04-11-2024 End: 04-11-2024 Patient encounter procedure Nelson Torrez MD Work Phone: General Surgery Comment on above: Basal cell carcinoma (BCC) of left upper arm (Primary Dx) Start: 04-11-2024 End: 04-11-2024 ambulatory NELSON TORREZ Facility:[facility] [place] Start: 03-30-2024 End: 03-30-[address] Angel Luis Middleton MD [facility] [place] Work Phone: Start: 03-30-2024 End: 03-30-2024 ambulatory Jaclyn [place] Facility:[facility] Start: 03-14-2024 End: 03-15-2024 Telephone encounter Enmanuel Lockwood MD Work Phone: [facility] Comment on above: Procedure (COLONOSCO PY/) Consult (Physical Th erapy ( Pelvic Floor Therapy)) Start: 03-14-2024 End: 03-14-2024 ambulatory ENMANUEL LOCKWOOD Facility:[facility] Start: 03-14-2024 End: 03-14-2024 Patient encounter procedure Enmanuel Lockwood MD Work Phone: [facility] Comment on above: Outlet dysfunction c onstipation (Primary Dx); Encounter for screening for malignant neoplasm of colon Colon cancer screeni ng (Primary Dx) Start: 03-05-2024 End: 03-05-2024 ambulatory Jaclyn [place] Facility:[facility] Start: 03-01-2024 End: 03-01-2024 ambulatory Zara Podlogteo LINDERVP CLINICAL Work Phone: [facility] Comment on above: Updating information Start: 02-28-2024 End: 02-28-2024 ambulatory Zara Galloway DEFENSE ANALYST.VP CLINICAL Work Phone: [facility] Comment on above: Tricor Medication Start: 02-27-2024 End: 02-27-2024 ambulatory INDIO MEDINA Facility:[facility] [place] Start: 02-15-2024 End: 02-15-2024 ambulatory INDIO MEDINA Facility:[facility] [place] Start: 02-15-2024 End: 02-15-2024 Patient encounter procedure Nelson Torrez MD Work Phone: General Surgery Comment on above: Skin cyst (Primary D x); Skin lesion of left arm; Basal cell carcinoma (BCC) of left upper arm Start: 02-13-2024 End: 02-13-2024 ambulatory Jaclyn [place] Facility:[facility] Start: 01-31-2024 End: 01-31-2024 ambulatory Jaclyn Siddiqui Facility:[facility] Start: 01-18-2024 End: 01-18-2024 ambulatory NELSON TORREZ Facility:[facility] [place] Start: 01-18-2024 End: 01-18-2024 Patient encounter procedure Nelson Torrez MD Work Phone: General Surgery Comment on above: Skin cyst Start: 01-05-2024 End: 01-05-2024 Telephone encounter Zara Patellogteo DEFENSE ANALYST.VP CLINICAL Work Phone: [facility] Comment on above: Future Appointment Start: 01-05-2024 End: 01-05-2024 ambulatory SAMYKulwinder ISRAEL Facility:[facility] [place] Start: 01-05-2024 End: 01-05-2024 Patient encounter procedure Zara Podlogar DEFENSE ANALYST.VP CLINICAL Work Phone: [facility] Comment on above: Skin cyst (Primary D x) Start: 01-04-2024 End: 01-05-2024 Telephone encounter Zara Galloway DEFENSE ANALYST.VP CLINICAL Work Phone: [facility] Comment on above: Results Start: 01-04-2024 End: 01-04-2024 ambulatory [facility] Facility:[facility] [place] Start: 01-03-2024 End: 01-03-2024 [facility] Comment on above: Left lower quadrant abdominal pain [R10.32] Start: 01-03-2024 End: 01-03-2024 Patient encounter procedure Zara Podlogar DEFENSE ANALYST.VP CLINICAL Work Phone: [facility] Comment on above: Left lower quadrant abdominal pain (Primary Dx); LUQ pain Start: 01-03-2024 End: 01-03-2024 ambulatory SAMY LAURAA Facility:[facility] [place] Start: 04-20-2023 End: 04-20-[address] Kristina Brandon Work Phone: [facility] Work Phone: Start: 04-20-2023 End: 04-20-[address] Kristina Brandon Work Phone: [facility] Start: 04-19-2023 End: 04-19-[address] Kristina Brandon Work Phone: [facility] Work Phone: Start: 04-05-2023 End: 04-05-[address] Kristina Brandon Work Phone: [facility] Work Phone: Start: 04-05-2023 End: 04-05-[address] Kristina Brandon Work Phone: [facility] Work Phone: Start: 03-31-2023 End: 03-31-2023 Emergency department patient visit Dr. Kristina Brandon Work Phone: [facility]Emergency Department Work Phone: Start: 03-17-2023 End: 03-17-[address] Kristina Brandon Work Phone: [facility] Work Phone: Start: 03-15-2023 End: 03-15-[address] Kristina Brandon Work Phone: [facility] Work Phone: Start: 03-15-2023 End: 03-15-[address] Kristina Brandon Work Phone: [facility] Work Phone: Start: 03-03-2023 End: 03-03-[address] Kristina Brandon Work Phone: [facility] Work Phone: Start: 03-01-2023 End: 03-01-[address] Kristina Brandon Work Phone: [facility] Work Phone: Start: 02-10-2023 End: 02-10-[address] Kristina Brandon Work Phone: [facility] Work Phone: Start: 02-01-2023 End: 02-01-[address] Kristina Brandon Work Phone: [facility] Work Phone: Start: 01-26-2023 End: 01-26-[address] Kristina Brandon Work Phone: [facility] Work Phone: Start: 01-17-2023 End: 01-17-[address] Kristina Brandon Work Phone: [facility] Work Phone: Start: 12-27-2022 End: 12-27-[address] Kristina Brandon Work Phone: [facility] Work Phone: Start: 12-06-2022 End: 12-07-2022 Office outpatient visit 10 minutes Kristina Brandon DO Work Phone: [facility] Start: 12-06-2022 Review Kristina lorenz DO Work Phone: [facility] Start: 12-02-2022 End: 12-02-[address] Kristina Brandon Work Phone: [facility] Work Phone: Start: 11-25-2022 End: 11-25-2022 Office outpatient visit 10 minutes Kristina Brandon DO Work Phone: [facility] Start: 11-23-2022 End: 11-23-[address] Kristina Brandon Work Phone: [facility] Work Phone: Start: 11-21-2022 End: 11-21-2022 Emergency department patient visit Dr. Kristina Brandon Work Phone: [facility]-Emergency Department Work Phone: Start: 11-16-2022 End: 11-16-[address] Kristina Brandon Work Phone: [facility] Work Phone: Start: 11-16-2022 End: 11-16-[address] Kristina Brandon Work Phone: [facility]-Outpatient Breast Imaging Work Phone: Start: 11-10-2022 End: 11-10-2022 Patient encounter procedure Aster Malcolm SECURITIES ADVISER [facility] Start: 11-10-2022 Review Kristina lorenz DO Work Phone: [facility] Start: 10-28-[address] Gerber Brandon Work Phone: [facility]-Physical Therapy Work Phone: Start: 10-27-2022 End: 10-28-2022 Patient encounter procedure Jasiel Hardy LPN [facility] Start: 10-19-2022 End: 10-19-[address] Kristina Brandon Work Phone: [facility] Work Phone: Start: 10-15-2022 End: 10-15-[address] Kristina Brandon Work Phone: [facility] Start: 10-15-2022 End: 10-15-2022 Office outpatient visit 25 minutes Kristina Brandon DO Work Phone: [facility] Start: 10-15-2022 Review Kristina Fearo n DO Work Phone: [facility] Start: 09-16-2022 End: 09-16-[address] Kristina Brandon Work Phone: [facility] Work Phone: Start: 08-26-2022 End: 08-26-[address] Kristina Brandon Work Phone: [facility] Work Phone: Start: 08-25-2022 End: 08-25-[address] Kristina Brandon Work Phone: [facility] Start: 08-25-2022 End: 08-25-2022 Annotation/Addendum Kristina Roma DO Work Phone: [facility] Start: 08-23-2022 End: 08-23-2022 Office outpatient visit 15 minutes Kristina Roma DO Work Phone: [facility] Start: 08-18-2022 End: 08-18-[address] Kristina Brandon Work Phone: [facility] Work Phone: Start: 08-02-2022 Review Kristina Fearo n DO Work Phone: [facility] Start: 08-02-2022 End: 08-02-2022 Office outpatient visit 15 minutes Kristina Roma DO Work Phone: [facility] Start: 04-16-2022 ambulatory Kristina Roma DO [facility] Start: 04-16-2022 End: 04-16-2022 Office outpatient visit 25 minutes Kristina Roma DO Work Phone: [facility] Start: 04-07-2022 End: 04-07-2022 Office outpatient visit 10 minutes Kristina Roma DO Work Phone: [facility] Start: 03-26-2022 End: 03-26-[address] Kristina Brandon Work Phone: [facility] Work Phone: Start: 03-26-2022 End: 03-26-[address] Kristina Brandon Work Phone: [facility] [place] Start: 03-19-2022 End: 03-19-[address] Kristina Brandon Work Phone: [facility] Work Phone: Start: 03-19-2022 End: 03-19-[address] Kristina Brandon Work Phone: [facility] Start: 03-19-2022 End: 03-30-2022 Office outpatient visit 15 minutes Kristina Brandon DO Work Phone: [facility] Start: 03-19-2022 Review Kristina lorenz DO Work Phone: [facility] Start: 03-11-2022 End: 03-11-[address] Kristina Brandon Work Phone: [facility] Start: 02-20-2022 End: 02-20-2022 Emergency department [facility] Start: 02-20-2022 End: 02-20-2022 Patient encounter procedure Alexandria Sharma APRN.CNP Work Phone: [facility] Comment on above: Other chest pain (Pr imary Dx) Start: 02-07-2022 End: 02-07-2022 Emergency department patient [facility] Start: 02-01-2022 End: 02-01-2022 [facility] Kristina Brandon DO Work Phone: [facility] Start: 01-26-2022 End: 01-26-[address] Kristina Brandon Work Phone: [facility] Start: 12-30-2021 End: 12-31-2021 Office outpatient visit 15 minutes Kristina Roma DO Work Phone: [facility] Start: 12-23-2021 End: 12-23-2021 Phone Encounter Kristina Roma DO Work Phone: [facility] Start: 12-16-2021 End: 12-16-2021 Phone Encounter Kristina Roma DO Work Phone: [facility] Start: 12-14-2021 End: 12-14-2021 Office outpatient visit 25 minutes Kristina Roma DO Work Phone: [facility] Start: 12-01-2021 End: 12-01-[address] Kristina Brandon Work Phone: [facility] Start: 11-30-2021 End: 11-30-2021 Office outpatient visit 10 minutes Kristina Roma DO Work Phone: [facility] Start: 11-20-2021 End: 11-20-2021 Phone Encounter Kristina Roma DO Work Phone: [facility] Start: 11-18-2021 End: 11-18-2021 Office outpatient visit 5 minutes Kristina Roma DO Work Phone: [facility] Start: 11-13-2021 Review Kristina Fearo n DO Work Phone: [facility] Start: 11-13-2021 End: 11-13-2021 Office outpatient visit 10 minutes Kristina Roma DO Work Phone: [facility] Start: 11-03-2021 End: 11-03-[address] Brandt Dang Work Phone: [facility] Work Phone: Start: 11-03-2021 End: 11-03-[address] Brandt Dang Work Phone: [facility]-Outpatient Bone Densitometry Start: 10-20-2021 End: 10-20-[address] Brandt Dang Work Phone: [facility] Start: 10-19-2021 End: 10-19-2021 Patient encounter procedure Kristina Pandyaon DO Work Phone: [facility] Start: 10-19-2021 End: 10-19-2021 Periodic preventive med est patient 65yrs& older Kristina Brandon DO Work Phone: [facility] Start: 10-14-2021 End: 10-14-[address] Brandt Dang Work Phone: [facility] Start: 10-01-2021 End: 10-01-2021 Lab Order Kristina Roma DO Work Phone: [facility] Start: 09-30-2021 End: 09-30-[address] Brandt Dang Work Phone: [facility] Start: 09-30-2021 End: 09-30-2021 Office outpatient visit 15 minutes Kristina Brandon DO Work Phone: [facility] Start: 09-30-2021 Review Kristina lorenz DO Work Phone: [facility] Start: 09-23-2021 Non-patient / Non-visit Dr. Ra isac Dang Work Phone: [facility] Start: 09-22-2021 Non-patient / Non-visit Dr. Ra isac Dang Work Phone: [facility] Start: 09-22-2021 End: 09-23-2021 Evaluation and management of inpatient Dr. Brandt Dang Work Phone: [facility]-Medical Surgical 3 Start: 09-21-2021 Evaluation and management of inpatient [facility] Brand[facility] D[facility] Start: 09-21-2021 Non-patient / Non-visit Dr. Ra isac Dang Work Phone: [facility] Start: 09-18-2021 End: 09-18-2021 Phone Encounter Kristina Roma DO Work Phone: [facility] Start: 09-15-2021 End: 09-17-2021 Office outpatient visit 10 minutes Kristina Roma DO Work Phone: [facility] Start: 09-15-2021 Review Kristina Fearo n DO Work Phone: [facility] Start: 09-15-2021 End: 09-15-[address] Brandt Dang Work Phone: [facility] Start: 08-27-2021 End: 08-27-[address] Brandt Dang Work Phone: [facility] 3 Outp Start: 08-27-2021 End: 08-28-2021 Office outpatient visit 25 minutes Kristina Roma DO Work Phone: [facility] Start: 08-24-2021 End: 08-24-2021 Office outpatient visit 15 minutes Kristina Roma DO Work Phone: [facility] Start: 08-12-2021 End: 08-12-[address] Brandt aDng Work Phone: [facility] Start: 08-12-2021 End: 08-12-2021 Office outpatient visit 25 minutes Kristina Roma DO Work Phone: [facility] Start: 08-12-2021 Review Kristina Fearo n DO Work Phone: [facility] Start: 07-16-2021 End: 07-16-[address] Brandt Dang Work Phone: [facility] Start: 07-03-2021 End: 07-05-2021 Office outpatient visit 10 minutes Kristina Roma DO Work Phone: [facility] Start: 07-03-2021 Review Kristina Fearo n DO Work Phone: [facility] Start: 06-04-2021 End: 06-04-[address] Brandt Dang Work Phone: [facility] Start: 05-27-2021 End: 05-27-2021 Office outpatient visit 15 minutes Kristina Roma DO Work Phone: [facility] Start: 05-18-2021 End: 05-18-2021 Office outpatient visit 15 minutes Kristina Roma DO Work Phone: [facility] Start: 05-13-2021 End: 05-13-2021 Office outpatient visit 15 minutes Kristina Roma DO Work Phone: [facility] Start: 05-08-2021 End: 05-08-2021 Annotation/Addendum Kristina Roma DO Work Phone: [facility] Start: 05-06-2021 End: 05-06-2021 Office outpatient visit 25 minutes Kristina Roma DO Work Phone: [facility] Start: 04-23-2021 End: 04-23-[address] Brandt Dang Work Phone: [facility] Start: 04-10-2021 End: 04-10-2021 Annotation/Addendum Kristina Roma DO Work Phone: [facility] Start: 04-08-2021 End: 04-08-2021 Office outpatient visit 10 minutes Kristina Roma DO Work Phone: [facility] Start: 04-07-2021 End: 04-07-2021 Lab Order Kristina Roma DO Work Phone: [facility] Start: 03-20-2021 End: 03-20-2021 Office outpatient visit 15 minutes Kristina Roma DO Work Phone: [facility] Start: 03-18-2021 End: 03-18-2021 Annotation/Addendum Kristina Roma DO Work Phone: [facility] Start: 03-18-2021 End: 03-18-2021 Office outpatient visit 15 minutes Kristina Roma DO Work Phone: [facility] Start: 03-13-2021 End: 03-13-2021 Annotation/Addendum Kristina Roma DO Work Phone: [facility] Start: 02-06-2021 End: 02-06-2021 Office outpatient visit 25 minutes Kristina Roma DO Work Phone: [facility] Start: 11-18-2020 End: 11-18-2020 Annotation/Addendum Kristina Roma DO Work Phone: [facility] Start: 10-06-2020 End: 10-06-2020 Office outpatient visit 25 minutes Kristina Roma DO Work Phone: [facility] Start: 08-13-2020 End: 08-13-2020 Annotation/Addendum Kristina Roma DO Work Phone: [facility] Start: 07-30-2020 End: 07-30-2020 Annotation/Addendum Kristina Roma DO Work Phone: [facility] Start: 07-29-2020 End: 07-29-2020 Office outpatient visit 15 minutes Kristina Roma DO Work Phone: [facility] Start: 07-29-2020 Review Kristina Fearo n DO Work Phone: [facility] Start: 07-16-2020 End: 07-16-2020 Annotation/Addendum Dhaval Israel VP CLINICAL Work Phone: [facility] Start: 07-16-2020 Review Dhaval Israel VP CLINICAL Work Phone: [facility] Start: 07-16-2020 End: 07-16-2020 Lab Order Dhaval Israel VP CLINICAL Work Phone: [facility] Start: 07-16-2020 End: 07-16-2020 Annotation/Addendum Dhaval Israel VP CLINICAL Work Phone: [facility] Start: 07-15-2020 Review Dhaval Israel VP CLINICAL Work Phone: [facility] Start: 07-15-2020 End: 07-15-2020 Office outpatient new 45 minutes Dhaval Israel VP CLINICAL Work Phone: [facility] Patient encounter procedure Ann-Marie Retana [facility] Work Phone: Patient encounter procedure Radhavinnieallan Rocio [facility]; [facility] Work Phone: Patient encounter procedure Jean-Paul Chan [facility]; [facility] Work Phone: Patient encounter procedure Yajaira Torres [facility]; [facility] Work Phone: Patient encounter procedure Jean-Paul Chan [facility] Work Phone: Patient encounter procedure Edda Saldivar [facility]; [facility] Work Phone: Patient encounter procedure Stacie Horta [facility]; [facility] Work Phone: Patient encounter procedure Sasha Medina [facility]; [facility] Work Phone: Patient encounter procedure Jasiel Hardy [facility] Work Phone: Patient encounter procedure NERY Jain [facility]; [facility] Work Phone: Procedures Date Procedure Procedure Detail Performing Clinician Start: 08-22-2024 Follow-up visit Follow Up NELSON TORREZ Start: 03-30-2024 Assay of phosphorus inorganic Dr. Jaclyn Siddiqui MD Work Phone: Start: 03-30-2024 Measurement of renal function Dr. Jaclyn Siddiqui MD Work Phone: Comment on above: GFR Calc Start: 02-15-2024 SURGICAL PATHOLOGY Nelson Torrez MD Work Phone: Start: 01-03-2024 Ct abdomen & pelvis w/contrast material Zara Galloway APRN.VP CLINICAL Work Phone: Start: 03-31-2023 CT cervical spine without contrast Dr. Kristina Brandon Work Phone: Start: 03-31-2023 CT of head without contrast Dr. Kristina Brandon Work Phone: Start: 03-15-2023 MRI of joint of lower extremity Dr. Kristina Brandon Work Phone: Start: 12-02-2022 End: 12-06-2022 Neurology Visit Report Procedure Note: See Note; NOTES: [facility] [address] [place] [address], [address] [place] [address] OFFICE VISIT Date of Service: 12/02/22 MR#: [id number] Acct: [id number] Name: BITA THOMPSON Rep #: [id number] : 1945 Provider: Dr. Brandt blackman MD Age/Sex: 77/F Location: [facility] Status: Signed Intake Vital Signs 08/26/22 14:27 11/23/22 10:18 12/02/22 14:00 Height 5 ft 6 in 5 ft 6 in 5 ft 6 in Weight: 157 lb 13 oz BMI 25.4 BP 148/66 H Blood Pressure Location Lt brachial Position Sitting Respiration 17 Pulse 76 Pulse Source Monitor Temp 98.2 F Temp Source Temporal Pulse Oximetry (%) 97 Oxygen Delivery Method room air Intake Visit Reasons: TRIGGER POINT INJECTION Chief Complaint: Director Of Cardiology Required: No Accompanied by: Self Allergies primidone Allergy (Severe, Verified 12/02/22 14:09) Anaphylaxis montelukast Allergy (Intermediate, Verified 12/02/22 14:09) Other alcohol [From Mastisol Adhesive] Allergy (Unknown, Verified 12/02/22 14:09) Rash beef derived (bovine) Allergy (Unknown, Verified 12/02/22 14:09) Unknown gum mastic [From Mastisol Adhesive] Allergy (Unknown, Verified 12/02/22 14:09) Rash methyl salicylate [From Mastisol Adhesive] Allergy (Unknown, Verified 12/02/22 14:09) Rash mold Allergy (Unknown, Verified 12/02/22 14:09) Difficulty Breathing/Wheezing penicillin V Allergy (Unknown, Verified 12/02/22 14:09) Rash storax [From Mastisol Adhesive] Allergy (Unknown, Verified 12/02/22 14:09) Rash [id number] Reductase Inhibitor Allergy (Verified 12/02/22 14:09) NEEDS FOLLOW-UP black pepper Adverse Reaction (Unknown, Verified 12/02/22 14:09) UNKNOWN Beta-Blockers (Beta-Adrenergic Bloc Adverse Reaction (Verified 12/02/22 14:09) Other [facility] Medical History Anal condyloma Asthma Balance disorder Basal cell carcinoma Benign joint hypermobility Cardiomegaly CKD stage G3b/A1, GFR 30-44 and albumin creatinine ratio <30 mg/g Coarse tremors Constipation COPD (chronic obstructive pulmonary disease) Decreased GFR Depression with anxiety Diarrhea Enchondroma Essential tremor GERD (gastroesophageal reflux disease) History of diverticulitis History of kidney stones Hyperlipemia Hypertension Idiopathic thrombocytopenic purpura (ITP) Impaired fasting glucose LUQ pain Nausea Nocturnal hypoxia CYNTHIA (obstructive sleep apnea) Osteopenia Pancreatic divisum Pneumonia Pre-diabetes Rectal abnormality Renal cyst Rosacea SOB (shortness of breath) Vitamin D deficiency Surgical History History of bladder surgery History of cataract surgery History of section History of cholecystectomy History of colon surgery History of D C History of hip replacement History of hysterectomy History of kidney surgery History of left hip replacement History of splenectomy Family History Father Cancer Diabetes CVA (cerebral vascular accident) Ulcer Grandfather Cancer Mother Hypertension CVA (cerebral vascular accident) Thyroid disorder Brother Hypertension Sister Hypertension Kidney disease Autoimmune disease Social History Smoking Status: Never smoker Electronic Cigarette Use: not used second hand exposure: No alcohol intake: never substance use type: does not use what type of physical activity do you participate in: none tiara/yazidi: Episcopal seatbelt use: always HPI HPI Chief Complaint: Details: Note: Bita had initially scheduled an appointment today for a trigger point injection for neck pain however within recent days her neck pain has subsided and she is no longer in need of a trigger point injection. She has essential tremor. She has had a tremor since she was a teenager and this worsened during adulthood. Her tremor has interfered with activities including handwriting and using eating utensils. The tremor affects both hands, head and her voice. Propranolol 20 mg twice daily has been of some benefit for her tremor and has been well-tolerated however her tremor remains prominent at times. Primidone 50 mg daily, tried in years past was not of benefit and caused sedation. She has anxiety and when she has increased anxiety her tremor worsens. Physical Exam: Neuro: The patient is awake and alert and responds appropriately; speech is fluent but tremulous; a mild fine tremor is noted in the hands when arms are extended; no rigidity is noted; a head tremor is noted Heart: Regular rate and rhythm Supplemental Info CBC, CMP (03/18/2021): BUN 38, creatinine 1.37, EGFR 40, glucose 125. TSH, creatinine (04/09/21): creatinine 1.61, eGFR 33 Head MRI (04/23/21): FINDINGS: BRAIN AND EXTRA-AXIAL SPACES: T2 FLAIR hyperintensity foci in the white matter of both cerebral hemispheres are nonenhancing and have no mass effects. These are chronic white matter ischemic changes. No enhancing lesions intraaxially and extra-axially. No remote cortical based ischemic infarcts. No midline shift and no mass effects. Normal ventricles and cisterns. No intra- or extra-axial hemorrhage. Posterior fossa structures are unremarkable. SELLA: Unremarkable. Normal sella turcica, pituitary gland, infundibular stalk, optic chiasm and hypothalamus. AUDITORY SYSTEM: Unremarkable. The internal auditory canals are patent. BONES/JOINTS: Unremarkable. No discrete lytic or blastic abnormalities. SINUSES: Unremarkable as visualized. Clear. MASTOID AIR CELLS: Unremarkable as visualized. Clear. ORBITS: Unremarkable as visualized. Both globes, extraocular muscles, optic nerves and retrobulbar fat appear unremarkable. VASCULATURE: Unremarkable as visualized. Normal flow voids in the major intracranial circulation. IMPRESSION: 1. No MRI evidence of acute or subacute ischemic infarct or remote cortical based ischemic infarct. 2. No MRI evidence of intracranial mass. 3. Chronic white matter ischemic changes in both c erebral hemispheres. 4. No abnormal enhancing lesions intraaxially and extra-axially. Cervical MRI (04/23/21): FINDINGS: Normal foramen magnum and brainstem-cervical cord junction. Normal craniovertebral junction. Normal anterior atlantoaxial articulation. Normal odontoid process. Normal cervical lordosis. Normal vertebral bodies and posterior osseous elements. C2-3: Normal endplates. Normal disc height, signal and morphology. Normal central canal and intervertebral neural foramina. C3-4: Normal endplates. Normal disc height. Minimal degenerative anterolisthesis of C3 on C4. Normal central canal and intervertebral neural foramina. C4-5: Normal endplates. Mild disc space height narrowing. Mild degenerative anterolisthesis of C4 on C5. Normal central canal and left intervertebral neural foramen. Moderately pronounced stenosis of the right intervertebral neural foramen. C5-6: MODIC type I degenerative vertebral marrow edema underneath the vertebral endplates. Moderate disc space height narrowing. Anterior and posterior marginal spurs. Normal central canal. Moderately pronounced stenosis of the intervertebral neural foramina. C6-7: Anterior posterior marginal spurs. Normal endplates. Moderate disc space height narrowing. Normal central canal and intervertebral neural foramina. C7-T1: Normal endplates. Normal disc height. Mild degenerative anterolisthesis of C7 on T1. Normal intervertebral neural foramina. Perineural cyst in the right intervertebral neural foramen. T1-T2: (Sagittal only). Normal endplates. Normal disc height. Minimal ventral extradural defect due to small posterior bulging annulus. Normal central canal and intervertebral neural foramina. T2-3: (Sagittal only). Normal endplates. Normal disc height. Minimal ventral extra dural defect due to small posterior bulging annulus. Normal central canal and intervertebral neural foramina. T3-T4: (Sagittal only). Normal endplates. Minimal disc space height narrowing. Mild degenerative anterolisthesis of T3 on T4. Normal central canal and intervertebral neural foramina. T4-T5 and T5-T6: (Sagittal only). Normal endplates. Normal disc height and morphology. Normal central canal and intervertebral neural foramina. Normal cervical cord. Normal upper thoracic spinal cord. Normal included portions of the brainstem and cerebellum. Normal visualized soft tissue structures. IMPRESSION: 1. No MRI evidence of cervical extruded disc fragment. 2. Minimal degenerative anterolisthesis of C3 on C4. 3. Minimal degenerative anterolisthesis of C4 on C5 and moderately pronounced stenosis of the right intervertebral neural foramen. 4. Mild C5-C6 intervertebral osteochondritis (MODIC type I) and moderately pronounced stenosis of the intervertebral neural foramina. 5. Mild degenerative anterolisthesis of C7 on T1 and T3 on T4. 6. Normal cervical spinal cord. CBC, BMP, vitamin D, PTH intact (10/14/2021): BUN 34, creatinine 1.4, EGFR 39 CBC, BMP (02/20/2022): BUN 39 (high), creatinine 1.53 (high), EGFR 35 (low), BUN/creatinine ratio 25.5 (high) EKG (02/20/2022): Normal sinus rhythm. Normal EKG. CBC (03/19/2022): Unremarkable. BMP (03/26/2022): Sodium 135 (low), BUN 45 (high), creatinine 1.54 (high), EGFR 35 (low), BUN/creatinine ratio 29.2 (high) Coding Level of Care Code Off vis,est,level 3 Diagnoses Essential tremor G25.0 Anxiety F41.9 Assessment and Plan Assessment and Plan (1) Essential tremor: Status: Chronic (2) Anxiety: Status: Chronic Medications: New buspirone 5 mg PO BID 60 tabs 4RF Plan Details Additional Comments: The patient has an essential tremor. Her tremor has caused functional impairment with activities such as using eating utensils and writing. Propranolol has been of moderate benefit for her tremor however she continues to experience prominent tremor at times. She has anxiety and when her anxiety is heightened her tremor worsens. Prior use of low-dose primidone was not of benefit and caused sedation. - Propranolol 10 mg 2 tablets BID will be continued. - Buspirone 5 mg twice daily will be initiated for her anxiety with the hope that if reduction of her anxiety is attained that she may then have some reduction of her tremor. I will have her return for reassessment in January 2023. 12/06/22 1014 <Electronically signed by Brandt Dang MD> Date Brandt Garcia Signature: Date (if applicable) CC: Kristina Brandon DO Work Phone: Start: 11-21-2022 End: 11-21-2022 Emergency Department Summary Procedure Note: See Note; NOTES: [facility] Medical Records Department [address] [place] [address] Emergency Department Summary 11/21/22 MR#: [id number] Acct: [id number] Name: BITA THOMPSON Rep #: [id number] : 1945 77 From: Jeancarlos Hunt DO PCP: Dr. Kristina Brandon DO Status:DEP ER Location: ED HPI History of Present Illness Chief Complaint: Lower Extremity Injury Informant: patient Narrative Narrative: 77-year-old female presenting to the emergency department chief complaint of right knee pain. Patient states that yesterday she was climbing stairs with her lead foot on the step in front of her she lifted up and felt a pop in the infrapatellar region. Since then she notes swelling in the infrapatellar area. She has been able to bear weight. She denies any posterior leg pain. She denies any other injuries. No prior knee surgery on this side. [facility] Medical History Anal condyloma Asthma Balance disorder Basal cell carcinoma Benign joint hypermobility Cardiomegaly CKD stage G3b/A1, GFR 30-44 and albumin creatinine ratio <30 mg/g Coarse tremors Constipation COPD (chronic obstructive pulmonary disease) Decreased GFR Depression with anxiety Diarrhea Enchondroma Essential tremor GERD (gastroesophageal reflux disease) History of diverticulitis History of kidney stones Hyperlipemia Hypertension Idiopathic thrombocytopenic purpura (ITP) Impaired fasting glucose LUQ pain Nausea Nocturnal hypoxia CYNTHIA (obstructive sleep apnea) Osteopenia Pancreatic divisum Pneumonia Pre-diabetes Rectal abnormality Renal cyst Rosacea SOB (shortness of breath) Vitamin D deficiency Home Medications famotidine 20 mg tablet (Pepcid) 20 mg PO DAILY 04/09/21 [History Last Taken Unknown] fenofibrate nanocrystallized 145 mg tablet (Tricor) 145 mg PO DAILY 04/09/21 [History Last Taken Unknown] folic acid 400 mcg tablet 0.4 mg PO DAILY 04/09/21 [History Last Taken Unknown] lisinopril 20 mg tablet 20 mg PO BID 04/09/21 [History Last Taken Unknown] prochlorperazine maleate 5 mg tablet 5 - 10 mg PO Q6H PRN Stomach Upset 04/09/21 [History Last Taken Unknown] albuterol sulfate 90 mcg/actuation aerosol inhaler 2 puff inhalation Q4H PRN shortness of breath or wheezing 07/16/21 [History Last Taken Unknown] potassium chloride 10 mEq tablet,extended release 10 meq PO QODAY 01/07/22 [History Last Taken Unknown] sulfamethoxazole 800 mg-trimethoprim 160 mg tablet (Bactrim DS) 1 tab PO BID 3 days #6 tabs 02/07/22 [Rx Last Taken Unknown] lifitegrast 5 % eye drops in a dropperette (Xiidra) 1 drp ophthalmic (eye) BID 03/11/22 [History Last Taken Unknown] propranolol 10 mg tablet 20 mg (2 x 10 mg) PO BID #360 tabs 05/13/22 [Rx Last Taken Unknown] Allergy/AdvReac Type Severity Reaction Status Date / Time primidone Allergy Severe Anaphylaxis Verified 11/21/22 12:49 montelukast Allergy Intermediate Other Verified 11/21/22 12:49 alcohol Allergy Unknown Rash Verified 11/21/22 12:49 [From Mastisol Adhesive] beef derived (bovine) Allergy Unknown Unknown Verified 11/21/22 12:49 gum mastic Allergy Unknown Rash Verified 11/21/22 12:49 [From Mastisol Adhesive] methyl salicylate Allergy Unknown Rash Verified 11/21/22 12:49 [From Mastisol Adhesive] mold Allergy Unknown Difficulty Verified 11/21/22 12:49 Breathing/Wheezing penicillin V Allergy Unknown Rash Verified 11/21/22 12:49 storax Allergy Unknown Rash Verified 11/21/22 12:49 [From Mastisol Adhesive] Pzamwkk-ZEA-AkC Reductase Allergy NEEDS Verified 11/21/22 12:49 Inhibitor FOLLOW-UP black pepper AdvReac Unknown UNKNOWN Verified 11/21/22 12:49 Beta-Blockers AdvReac Other Verified 11/21/22 12:49 (Beta-Adrenergic Bloc Family History Father Cancer Diabetes CVA (cerebral vascular accident) Ulcer Grandfather Cancer Mother Hypertension CVA (cerebral vascular accident) Thyroid disorder Brother Hypertension Sister Hypertension Kidney disease Autoimmune disease Surgical History History of bladder surgery History of cataract surgery History of section History of cholecystectomy History of colon surgery History of D C History of hip replacement History of hysterectomy History of kidney surgery History of left hip replacement History of splenectomy Social History Smoking Status: Never smoker Electronic Cigarette Use: not used second hand exposure: No alcohol intake: never substance use type: does not use what type of physical activity do you participate in: none tiara/yazidi: Episcopal seatbelt use: always ROS ROS ED Constitutional Constitutional ED: Denies chills or weight loss Eyes Eyes: Denies change in vision or diplopia ENT ENT ED: Denies ear pain, rhinorrhea or sore throat Cardiovascular Cardiovascular: Denies chest pain, orthopnea, palpitations or racing heartbeat Respiratory/Chest Respiratory/Chest: Denies cough, dyspnea or orthopnea Gastrointestinal Gastrointestinal: Denies abdominal pain, diarrhea, nausea or vomiting Genitourinary Genitourinary ED: Denies dysuria, hematuria or urinary frequency Musculoskeletal Musculoskeletal: Reports other Details: Right knee pain ; Denies arthralgias or myalgias Integumentary Denies abscess or rash Neurologic Neurologic: Denies headache(s) or weakness Psychiatric Psychiatric: Denies anxiety, depression, suicidal ideation or suicidal thoughts Endocrine Endocrinology: Denies polydipsia, polyphagia or polyuria Allergic/Immunologic Allergic/Immunologic ED: Denies mouth swelling, tongue swelling or urticaria EXAM Physical Exam Const Vital Signs: 11/21/22 12:50 Temperature 97.3 F L Temperature Source Temporal Pulse Rate 72 Respiratory Rate 12 Blood Pressure 169/74 H Blood Pressure Mean 105 Pulse Ox 98 Oxygen Delivery Method Room Air Positive well nourished and well developed General Appearance ED: well developed HEENT Reports normocephalic, head/scalp atraumatic and moist mucous membranes Eyes PERRL and EOMs intact bilaterally Neck no lymphadenopathy, supple and no JVD Resp normal respiratory effort and clear to auscultation bilaterally Cardio regular rate, regular rhythm and no murmurs GI normal to inspection, nondistended, normoactive bowel sounds and non-tender Palpation: soft Back/Spine no CVA tenderness and normal ROM Extremity Extremity Narrative: Patient has no joint line tenderness. There is no effusion present. Tenderness in the infrapatellar region along with slight edema. There is no overlying erythema or increased warmth. Ligaments appear stable on direct testing. General Extremety ED: Negative for edema General Extremity: Negative for edema Neuro oriented x3 and CN's II-XII intact bilaterally Sensorium / Orientation: alert Sensory Exam: No sensory level loss detected Motor Exam: strength 5/5 throughout Psych mental status grossly normal Mood Affect: Negative for depressed or tearful Skin no rashes or lesions noted and no wounds MDM MDM MDM Narrative Medical decision making narrative: My interpretation of the plain films of the right knee is no acute fracture. There is some soft tissue swelling possibly of the suprapatellar bursa however clinically her symptoms are infrapatellar. We will treat with Pratibha wrap ice and anti-inflammatories. At this point I do not think that the patient has meniscal injury as her symptoms are anterior infrapatellar. If no improvement with conservative treatment we will have her follow-up with primary care or orthopedics. Radiography Diagnostic Testing: Clinical Impression(s) from Imaging Studies Knee X-Ray 11/21/22 13:15 IMPRESSION: No evidence of acute osseous injury. Possible small joint effusion. Electronically Signed: Kehinde Ann MD at 13:55 EDT , Discharge Plan Triage Chief Complaint: Lower Extremity Injury ED Provider: Jeancarlos Hunt Dx/Rx/DC Orders Clinical Impression: Acute knee pain, Bursitis Instructions: ED Bursitis Prescriptions: No Action prochlorperazine maleate 5 mg tablet 5 - 10 mg PO Q6H PRN (Reason: Stomach Upset) lisinopril 20 mg tablet 20 mg PO BID fenofibrate nanocrystallized [Tricor] 145 mg tablet 145 mg PO DAILY famotidine [Pepcid] 20 mg tablet 20 mg PO DAILY folic acid 400 mcg tablet 0.4 mg PO DAILY albuterol sulfate 90 mcg/actuation HFA aerosol inhaler 2 puff inhalation Q4H PRN (Reason: shortness of breath or wheezing) Xiidra 5 % dropperette 1 drp ophthalmic (eye) BID Rx Instructions: administer approximately 12 hours apart potassium chloride 10 mEq tablet extended release 10 meq PO QODAY sulfamethoxazole-trimethop rim [Bactrim DS] 800-160 mg tablet 1 tab PO BID 3 Days Qty: 6 0RF propranolol 10 mg tablet 20 mg PO BID Qty: 360 1RF Rx Instructions: Take 2 tablets PO BID Primary Care Provider: Kristina Brandon Referrals: Kristina Brandon DO [Primary Care Provider] - Disposition Disposition: Home, Self Care Discharge Date/Time: 11/21/22 14:34 What to do if you have Problems For any increased pain, shortness of breath, bleeding, nausea or vomiting, chest pain, or any unexpected problems, contact your Primary Care Provider. Call [facility] ([phone]) or report to the closest Emergency Room. Call 911 if necessary. 11/21/22 4495 <Electronically signed by Jeancarlos Hunt DO> Cosigner Signature (if applicable): CC: Dr. Kristina Brandon DO Signed Kristina Brandon DO Work Phone: Start: 11-21-2022 End: 11-21-2022 Knee 4 or More Views Procedure Note: See Note; NOTES: [facility] Imaging Services [address] [place] [address] Knee 4 or More Views MR#: [id number] Acct: [id number] Name: BITA THOMPSON Rep #: [id number] : 1945 F 77 From: Kehinde Sheldon PCP: Dr. Kristina Brandon DO Status: REG ER Study: Knee 4 or More Views Date of Exam: 11/21/22 Exam# [id number] Ordering Dr: Jeancarlos Hunt DO [id number] INDICATION: pain EXAMINATION/TECHNIQUE: X-RAY - RIGHT XR Knee Complete 4 Views or More 4 VIEWS COMPARISON: No relevant prior comparison study available FINDINGS: SOFT TISSUES: No soft tissue swelling or gas. No radiopaque foreign body. BONES/JOINTS: No acute fracture or subluxation.. Possible tiny effusion in the suprapatellar joint space. Preservation of the joint space.. No sclerotic or destructive changes observed. RAD/Knee 4 or More Views IMPRESSION: No evidence of acute osseous injury. Possible small joint effusion. Electronically Signed: Kehinde Ann MD at 13:55 EDT , CC: Dr. Jeancarlos Hunt DO; Dr. Kristina Brandon DO Licensed Club Manager: Gregoria Brandon DO Work Phone: Start: 11-21-2022 Radiologic examination of knee Dr. Kristina Brandon Work Phone: Start: 11-16-[address] Kristina lorenz Work Phone: Start: 11-16-2022 End: 11-16-2022 SCRN MAMM (CAD)W/STEFFI BILAT Procedure Note: See Note; NOTES: [facility] Imaging Services [address] [place] [address] SCRN MAMM (CAD)W/STEFFI BILAT MR#: [id number] Acct: [id number] Name: BITA THOMPSON Rep #: [id number] : 1945 F 77 From: Hemant varma MD PCP: Dr. Kristina Brandon DO Status: REG CLI Study: SCRN MAMM (CAD)W/STEFFI BILAT Date of Exam: 10/29 11/20 Exam# [id number] Ordering Dr: Kristina Brandon DO [id number] MAMMOGRAPHY - BILATERAL SCREENING REASON FOR EXAM: Female, 77 years old. Routine annual screening examination. PERTINENT HISTORY: Non-contributory. TECHNIQUE: Digital bilateral breast steffi (3D mammographic acquisition) in the CC and MLO projections. 2-D mediolateral oblique (MLO) and craniocaudad (CC) views of both breasts were obtained. CAD: Full Field Digital Mammography with Computer Added Detection was performed. COMPARISON: Comparison is made with prior study November 03, 2021 and July 31, 2020. FINDINGS: Breast Composition: The breasts are heterogeneously dense, which may obscure small masses. There are no dominant masses or suspicious calcifications. Stable small benign-appearing bilateral axillary lymph nodes. No other significant abnormalities are identified. There has been no significant change since the prior study. BI/SCRN MAMM (CAD)W/STEFFI BILAT IMPRESSION: Stable bilateral screening mammogram. Yearly follow-up mammogram recommended. (A) ASSESSMENT CATEGORY: BIRADS Category 2: Benign. A letter regarding these results will be sent to the patient by the facility within 30 days. Approximately 10% of breast cancers are not detected by mammography. A normal mammogram should not delay biopsy of a clinically suspicious abnormality. [id number] Electronically Signed: Hemant Meneses MD at 14:04 EDT , CC: Dr. Kristina Brandon DO Licensed Club Manager: Signed Kristina Brandon DO Work Phone: Start: 10-19-2022 End: 10-19-2022 Inital Evaluation (1) - PT Procedure Note: See Note; NOTES: [facility] Physical Therapy [facility] [address] [place] [address] / REHABILITATION SERVICES INITIAL EVALUATION MR#: [id number] Acct: [id number] Name: BITA THOMPSON Rep #: [id number] : 1945 77 From: Matt Asif DPT, OCS, CSCS Referring Dr.: Dr. Kristina Brandon DO Status: REG RCR Insurance: MEDICARE PART A B ANTHEM Patient's Visit Information Visit Information Visit Information: BITA THOMPSON is a 77 year old F referred to Physical Therapy by Dr. Kristina Brandon DO with a diagnosis of L shoulder pain. Date of Evaluation: 10/19/22 Physical Therapist: Matt Asif DPT, OCS, CSCS Visit Plan Frequency: 2x /Week Duration: 4-6 Weeks Plan: 2x/week for 3-6 weeks for 1. MH and STM to L UT 2. strength posture and L RC to HEP 3. g-h mobs L shoulder grade 3-4 and distraction. Subjective Subjective: I had tons of PT in [place]. Sylvia had numerous falls due to tremors. L shoulder and arm lately has started hurting. X ray shows nothing. Recommended PT. Sees Dr. Dang for trigger shots in the neck whcih may be wearing off. This is for tremors. This pain is worse than usual but not sure why. No injury really. Moved from [place] in 2020 and it is colder summer than normal. No falls in a while. Pain is worse for last two weeks. comfortable at rest. Reaching up hurts the most. Ran into wall today, no falls in 3 years since her TARA L. Lying in bed can hurt. awakens sometimes. roll on left side is worse It is tender to touch. No numbness or tingling UE. Not employed. Basic ADLs are getting done, avoids cleaning but due to tremors more than pain. Ex; signed up at but not working at it yet. Hobbies: Takes care of with Alzheimers, lots of cognitive. She has to drive today. Works at [employer]. Pain L shoulder: Pain Intensity (Out of 10): 0 Pain Intensity Range: 0 and 8 Comment: worse with movement Objective Objective: Slightly neuropathic gait, some tremors while sitting in head/neck. L scapula elevated vs R , B scapula forward and protracted. tender to touch supra and infraspinatus tendons moderatley, min at g-h joint ant and posterior, min in UT L. + HK and neer tests, - sulcus, - ext rotation lag, - drop arm. all on L. Full aROM of B UE but end range of er and elevation is painful on L. Feels tight as does IR. elbow and wrist WFL ROM. Cervical AROM ext 30 and L rotation 45 and R rotation 55, no shoulder pain. tightness in L UT with L rotation. - c/s compression test. strength UE 3+ elevation B and er L with pain. 4- R. Bi and tri and wrist 4- without pain. reflexes 1./3 bi and tri Sensation UE WNL to gross light touch. Walks safely and I into PT with slight wide TARA, Trasnfers are I. Balance/Special Test Scores Quick DASH Score: 63.6350 Goals Goal 1:: Full aROM L shoulder without pain Goal Time Frame: 4-6 Weeks Goal 2:: Pt feel pain 1/10 at worst and 75% better Goal Time Frame: 4-6 Weeks Goal 3:: I appropr HEP to minimize future problems Goal Time Frame: 4-6 Weeks Goal 4:: quick dash score 16 or better Goal Time Frame: 4-6 Weeks Rehabilitation Potential Physical Therapy Diagnosis: Likely impingement L shoulder tendonitis. Rehabilitation Potential: Fair Anticipated Interventions Patient/Client Instruction: Educate patient on: Condition and Plan of Care For the Purpose of:: To decrease pain, To increase ROM, To improve nutrient delivery to tissue, To improve muscle performance and motor function and To increase tolerance to activity/condition/positio n Therapeutic Exercise to Include: Strength training, Postural training, Flexibilty training, Passive ROM, Active ROM and Scapular Strength/Stabilization For the Purpose of:: To decrease pain, To increase ROM, To improve nutrient delivery to tissue, To improve muscle performance and motor function and To increase tolerance to activity/condition/positio n Manual Therapy Techniques to Include: Mobilization, Passive ROM and Soft tissue mobilization For the Purpose of:: To decrease pain and To increase ROM Thermo therapy (hot pack): Yes (UT) For the Purpose of:: To decrease pain and To decrease swelling/inflammation Text: Thank you for the opportunity to evaluate your patient. For Medicare and Medicare HMO plans, please review the plan of care and approve it. It will need to be FAXED BACK to us at [phone] for Medicare purposes. For Medicare only, by signing this I certify the plan of care. Please let me know if there are questions or concerns regarding this plan of care. Physician Signature: Date: <Electronically signed by Matt Asif DPT, OCS, CSCS> 10/19/22 1622 CC: Dr. Kristina Brandon DO EBG Signed Kristina Brandon DO Work Phone: Start: 10-19-2022 End: 10-24-2022 Office Visit Report Procedure Note: See Note; NOTES: [facility] Services [address] [place] [address] OFFICE VISIT Date of Service: 10/19/22 MR#: [id number] Acct: [id number] Patient: BITA THOMPSON Rep #: [id number] : 1945 Provider: Dr. Brandt blackman MD Age/Sex: 77/F Location: [facility]. Status: Signed Intake Vital Signs 08/26/22 14:27 09/16/22 10:22 10/19/22 10:28 Height 5 ft 6 in 5 ft 6 in 5 ft 6 in Weight: 154 lb 13 oz 156 lb 3 oz BMI 25.0 25.2 BP 146/82 H 140/80 H Blood Pressure Location Lt brachial Lt brachial Position Sitting Sitting Respiration 18 17 Pulse 74 70 Pulse Source Monitor Monitor Temp 98.7 F 98.6 F Temp Source Temporal Temporal Pulse Oximetry (%) 98 98 Oxygen Delivery Method room air room air Intake Visit Reasons: B12 inject Chief Complaint: fatigue Allergies primidone Allergy (Severe, Verified 08/26/22 14:28) Anaphylaxis montelukast Allergy (Intermediate, Verified 08/26/22 14:28) Other alcohol [From Mastisol Adhesive] Allergy (Unknown, Verified 08/26/22 14:28) Rash beef derived (bovine) Allergy (Unknown, Verified 08/26/22 14:28) Unknown gum mastic [From Mastisol Adhesive] Allergy (Unknown, Verified 08/26/22 14:28) Rash methyl salicylate [From Mastisol Adhesive] Allergy (Unknown, Verified 08/26/22 14:28) Rash mold Allergy (Unknown, Verified 08/26/22 14:28) Difficulty Breathing/Wheezing penicillin V Allergy (Unknown, Verified 08/26/22 14:28) Rash storax [From Mastisol Adhesive] Allergy (Unknown, Verified 08/26/22 14:28) Rash Bflrnog-MOT-AiC Reductase Inhibitor Allergy (Verified 08/26/22 14:28) NEEDS FOLLOW-UP Beta-Blockers (Beta-Adrenergic Bloc Adverse Reaction (Verified 08/26/22 14:28) Other Office Meds cyanocobalamin (vitamin B-12) 1,000 mcg/mL injection solution Performing Provider: Brandt Dang MD Performing Location: [facility] Administered by: Estephania Ledesma on 10/19/22 10:16 Dose Route Admin Location Dispensed Lot Number Expiration Date NDC Man ufacturer 1,500 mcg IM right deltoid 1.5 mL [id number] 02/27/25 65997-906-93 DYANA REES Comments: The patient presents for B12 injection for treatment of fatigue. She has fatigue. Her last B12 injection was of benefit for fatigue. The patient is awake and alert. B12 1500mcg IM was administered today. There were no complications. 10/24/22 4679 <Electronically signed by Brandt Dang MD> Date Brandt Dang MD Cosigner Signature: Date (if applicable) CC: Kristina Brandon DO Work Phone: Start: 10-15-2022 Plain X-ray of shoulder Dr. Kristina borrego Work Phone: Start: 10-15-2022 End: 10-16-2022 Shoulder min 2 Views Procedure Note: See Note; NOTES: [facility] Radiology [address] [place] [address] Shoulder min 2 Views MR#: [id number] Acct: [id number] Name: BITA THOMPSON Rep #: [id number] : 1945 F 77 From: Mykel lincoln MD PCP: Dr. Kristina Brandon DO Status: DEP AMB Study: Shoulder min 2 Views Date of Exam: 10/15/22 Exam# [id number] Ordering Dr: Kristina Brandon DO EXAM: XR LEFT SHOULDER COMPLETE, 2 OR MORE VIEWS CLINICAL INDICATION: left shoulder pain left shoulder pain TECHNIQUE: Two or more views of the left shoulder. COMPARISON: No relevant prior studies available. FINDINGS: BONES/JOINTS: Unremarkable. No acute fracture. No subluxation. Normal alignment. Preservation of the joint space. No sclerotic or destructive changes observed. SOFT TISSUES: Unremarkable. No soft tissue swelling or gas. No radiopaque foreign body. RAD/Shoulder min 2 Views IMPRESSION: Negative left shoulder x-rays. Electronically Signed: Mykel Lang MD at 7:52 EDT , CC: Dr. Kristina Brandon DO Licensed Club Manager: Signed Kristina Brandon DO Work Phone: Start: 09-16-2022 End: 11-01-2022 Office Visit Report Procedure Note: See Note; NOTES: [facility] [address] [place] [address] OFFICE VISIT Date of Service: 09/16/22 MR#: [id number] Acct: [id number] Patient: BITA THOMPSON Rep #: [id number] : 1945 Provider: Dr. Brandt blackman MD Age/Sex: 76/F Location: [facility]. Status: Signed Intake Vital Signs 07/19/22 10:33 08/26/22 14:27 09/16/22 10:22 Height 5 ft 6 in 5 ft 6 in 5 ft 6 in Weight: 154 lb 13 oz BMI 25.0 BP 146/82 H Blood Pressure Location Lt brachial Position Sitting Respiration 18 Pulse 74 Pulse Source Monitor Temp 98.7 F Temp Source Temporal Pulse Oximetry (%) 98 Oxygen Delivery Method room air Intake Visit Reasons: B12 Chief Complaint: fatigue Allergies primidone Allergy (Severe, Verified 08/26/22 14:28) Anaphylaxis montelukast Allergy (Intermediate, Verified 08/26/22 14:28) Other alcohol [From Mastisol Adhesive] Allergy (Unknown, Verified 08/26/22 14:28) Rash beef derived (bovine) Allergy (Unknown, Verified 08/26/22 14:28) Unknown gum mastic [From Mastisol Adhesive] Allergy (Unknown, Verified 08/26/22 14:28) Rash methyl salicylate [From Mastisol Adhesive] Allergy (Unknown, Verified 08/26/22 14:28) Rash mold Allergy (Unknown, Verified 08/26/22 14:28) Difficulty Breathing/Wheezing penicillin V Allergy (Unknown, Verified 08/26/22 14:28) Rash storax [From Mastisol Adhesive] Allergy (Unknown, Verified 08/26/22 14:28) Rash Hysmpty-ABL-TcA Reductase Inhibitor Allergy (Verified 08/26/22 14:28) NEEDS FOLLOW-UP Beta-Blockers (Beta-Adrenergic Bloc Adverse Reaction (Verified 08/26/22 14:28) Other Office Meds cyanocobalamin (vitamin B-12) 1,000 mcg/mL injection solution Performing Provider: Brandt Dang MD Performing Location: [facility] Administered by: Killian Oliveira on 09/16/22 10:25 Dose Route Admin Location Dispensed Lot Number Expiration Date [facility] Man ufacturer 1,500 mcg IM left deltoid 1.5 mL [id number] 02/27/25 27414-744-55 GENORAIMREZ POSADASAllan Comments: Patient arrived in the office for a B12 injection for fatigue. Patient is alert and responds appropriately. Patient states that the last B12 injection was effective for her fatigue. 1500mcg of B12 was given IM today. Patient tolerated the procedure well. 11/01/22 1322 <Electronically signed by Brandt Dang MD> Date Brandt Dang MD Cosigner Signature: Date (if applicable) CC: Kristina Roma DO Work Phone: Start: 08-26-2022 End: 08-26-2022 Neurology Visit Report Procedure Note: See Note; NOTES: [facility] [address] [place] [address], [address] [place] [address] OFFICE VISIT Date of Service: 08/26/22 MR#: [id number] Acct: [id number] Name: BITA THOMPSON Rep #: [id number] : 1945 Provider: Dr. Brandt blackman MD Age/Sex: 76/F Location: [facility]. Status: Signed Intake Vital Signs 03/11/22 11:28 08/18/22 10:10 08/26/22 14:27 Height 5 ft 6 in 5 ft 6 in 5 ft 6 in Weight: 155 lb 3 oz BMI 25.0 BP 138/70 H Blood Pressure Location Lt brachial Position Sitting Respiration 17 Pulse 76 Pulse Source Monitor Temp 98.9 F Temp Source Temporal Pulse Oximetry (%) 97 Oxygen Delivery Method room air Intake Visit Reasons: 4 M FU Chief Complaint: Accompanied by: Self Allergies primidone Allergy (Severe, Verified 08/26/22 14:28) Anaphylaxis montelukast Allergy (Intermediate, Verified 08/26/22 14:28) Other alcohol [From Mastisol Adhesive] Allergy (Unknown, Verified 08/26/22 14:28) Rash beef derived (bovine) Allergy (Unknown, Verified 08/26/22 14:28) Unknown gum mastic [From Mastisol Adhesive] Allergy (Unknown, Verified 08/26/22 14:28) Rash methyl salicylate [From Mastisol Adhesive] Allergy (Unknown, Verified 08/26/22 14:28) Rash mold Allergy (Unknown, Verified 08/26/22 14:28) Difficulty Breathing/Wheezing penicillin V Allergy (Unknown, Verified 08/26/22 14:28) Rash storax [From Mastisol Adhesive] Allergy (Unknown, Verified 08/26/22 14:28) Rash Paqchbu-UXL-OvV Reductase Inhibitor Allergy (Verified 08/26/22 14:28) NEEDS FOLLOW-UP Beta-Blockers (Beta-Adrenergic Bloc Adverse Reaction (Verified 08/26/22 14:28) Other [facility] Medical History Anal condyloma Asthma Balance disorder Basal cell carcinoma Benign joint hypermobility Cardiomegaly CKD stage G3b/A1, GFR 30-44 and albumin creatinine ratio <30 mg/g Coarse tremors Constipation COPD (chronic obstructive pulmonary disease) Decreased GFR Depression with anxiety Diarrhea Enchondroma Essential tremor GERD (gastroesophageal reflux disease) History of diverticulitis History of kidney stones Hyperlipemia Hypertension Idiopathic thrombocytopenic purpura (ITP) Impaired fasting glucose LUQ pain Nausea Nocturnal hypoxia CYNTHIA (obstructive sleep apnea) Osteopenia Pancreatic divisum Pneumonia Pre-diabetes Rectal abnormality Renal cyst Rosacea SOB (shortness of breath) Vitamin D deficiency Surgical History History of bladder surgery History of cataract surgery History of section History of cholecystectomy History of colon surgery History of D C History of hip replacement History of hysterectomy History of kidney surgery History of left hip replacement History of splenectomy Family History Father Cancer Diabetes CVA (cerebral vascular accident) Ulcer Grandfather Cancer Mother Hypertension CVA (cerebral vascular accident) Thyroid disorder Brother Hypertension Sister Hypertension Kidney disease Autoimmune disease Social History Smoking Status: Never smoker Electronic Cigarette Use: not used second hand exposure: No alcohol intake: never substance use type: does not use what type of physical activity do you participate in: none tiara/yazidi: Episcopal seatbelt use: always HPI HPI Chief Complaint: Details: Interim History: Bita returns for follow-up visit. She has a history of hypertension, hyperlipidemia, obstructive sleep apnea on CPAP, COPD, basal cell skin cancer status post excision, stage III renal insufficiency, prior history of idiopathic thrombocytopenic purpura (status post splenectomy in 1969) and essential tremor. She has had a tremor since she was a teenager and this worsened during adulthood. Her tremor has interfered with activities including handwriting and using cooking utensils. The tremor affects both hands and is increased with action and when she is tired or anxious. She also has a head tremor. Increasing her dose of propranolol to 20 mg twice daily has been of benefit for her tremor and has been well-tolerated. Primidone 50 mg daily, tried in years past, was not of benefit and caused sedation. No recent change in her tremor has been noted. She has had nystagmus noted on examination since childhood. Since around 2006, she has had gait imbalance. She has had physical therapy multiple times in the past. She has had low back pain and has bilateral hip pain and a feeling of stiffness in the hips. She had a fall in 2015 and sustained lumbar compression fracture(s) and underwent lumbar surgery at the L3-4-5 levels in 2015. This was of benefit and her low back pain subsided. She denied having any radicular pain in the lower extremities. She had a fall in 2020 and sustained a left hip fracture for which she underwent a partial hip replacement. She has had neck pain that radiates to the left shoulder since her fall in 2020. Cervical paraspinal/upper trapezius muscle trigger point injections have been of benefit for her musculoskeletal pain though her last injection was less effective than prior injections. Acetaminophen has been of benefit for her musculoskeletal pain. She denied having weakness. She reported that the cause of her nystagmus is unknown. She has chronic anxiety. Records indicate that a trial of Trokendi caused sedation. She was hospitalized in August 2021 for urinary tract infection with acute renal insufficiency superimposed on chronic renal insufficiency. Physical Exam: Neuro: The patient is awake and alert and responds appropriately; speech is fluent but tremulous; no tremor is noted in the hands at rest or when arms are extended; a head tremor is noted Heart: regular rate and rhythm Neck no bruits; left lower cervical paraspinal muscle tenderness is noted Office Procedures Neurology POC Injection: 1-2 Sites Details:: Procedure note: Left lower cervical paraspinal muscle trigger point injection Signed informed consent was obtained. The left lower cervical injection site was prepped with an alcohol swab. Methylprednisolone 40 mg IM and bupivacaine 0.75% 5 mL IM was injected in the left lower cervical paraspinal muscle. The injection site was bandaged. She tolerated the injection well. There were no complications. Office Meds methylprednisolone acetate 80 mg/mL suspension for injection Performing Provider: Brandt Dang MD Performing Location: [facility] Administered by: Estephania Ledesma on 08/26/22 15:39 Dose Route Admin Location Dispensed Lot Number Expiration Date [place] Man ufacturer 40 mg IM left cervical 0.5 mL [id number] 12/28/22 71685-026-18 [employer]. Supplemental Info CBC, CMP (03/18/2021): BUN 38, creatinine 1.37, EGFR 40, glucose 125. TSH, creatinine (04/09/21): creatinine 1.61, eGFR 33 Head MRI (04/23/21): FINDINGS: BRAIN AND EXTRA-AXIAL SPACES: T2 FLAIR hyperintensity foci in the white matter of both cerebral hemispheres are nonenhancing and have no mass effects. These are chronic white matter ischemic c hanges. No enhancing lesions intraaxially and extra-axially. No remote cortical based ischemic infarcts. No midline shift and no mass effects. Normal ventricles and cisterns. No intra- or extra-axial hemorrhage. Posterior fossa structures are unremarkable. SELLA: Unremarkable. Normal sella turcica, pituitary gland, infundibular stalk, optic chiasm and hypothalamus. AUDITORY SYSTEM: Unremarkable. The internal auditory canals are patent. BONES/JOINTS: Unremarkable. No discrete lytic or blastic abnormalities. SINUSES: Unremarkable as visualized. Clear. MASTOID AIR CELLS: Unremarkable as visualized. Clear. ORBITS: Unremarkable as visualized. Both globes, extraocular muscles, optic nerves and retrobulbar fat appear unremarkable. VASCULATURE: Unremarkable as visualized. Normal flow voids in the major intracranial circulation. IMPRESSION: 1. No MRI evidence of acute or subacute ischemic infarct or remote cortical based ischemic infarct. 2. No MRI evidence of intracranial mass. 3. Chronic white matter ischemic changes in both cerebral hemispheres. 4. No abnormal enhancing lesions intraaxially and extra-axially. Cervical MRI (04/23/21): FINDINGS: Normal foramen magnum and brainstem-cervical cord junction. Normal craniovertebral junction. Normal anterior atlantoaxial articulation. Normal odontoid process. Normal cervical lordosis. Normal vertebral bodies and posterior osseous elements. C2-3: Normal endplates. Normal disc height, signal and morphology. Normal central canal and intervertebral neural foramina. C3-4: Normal endplates. Normal disc height. Minimal degenerative anterolisthesis of C3 on C4. Normal central canal and intervertebral neural foramina. C4-5: Normal endplates. Mild disc space height narrowing. Mild degenerative anterolisthesis of C4 on C5. Normal central canal and left intervertebral neural foramen. Moderately pronounced stenosis of the right intervertebral neural foramen. C5-6: MODIC type I degenerative vertebral marrow edema underneath the vertebral endplates. Moderate disc space height narrowing. Anterior and posterior marginal spurs. Normal central canal. Moderately pronounced stenosis of the intervertebral neural foramina. C6-7: Anterior posterior marginal spurs. Normal endplates. Moderate disc space height narrowing. Normal central canal and intervertebral neural foramina. C7-T1: Normal endplates. Normal disc height. Mild degenerative anterolisthesis of C7 on T1. Normal intervertebral neural foramina. Perineural cyst in the right intervertebral neural foramen. T1-T2: (Sagittal only). Normal endplates. Normal disc height. Minimal ventral extradural defect due to small posterior bulging annulus. Normal central canal and intervertebral neural foramina. T2-3: (Sagittal only). Normal endplates. Normal disc height. Minimal ventral extra dural defect due to small posterior bulging annulus. Normal central canal and intervertebral neural foramina. T3-T4: (Sagittal only). Normal endplates. Minimal disc space height narrowing. Mild degenerative anterolisthesis of T3 on T4. Normal central canal and intervertebral neural foramina. T4-T5 and T5-T6: (Sagittal only). Normal endplates. Normal disc height and morphology. Normal central canal and intervertebral neural foramina. Normal cervical cord. Normal upper thoracic spinal cord. Normal included portions of the brainstem and cerebellum. Normal visualized soft tissue structures. IMPRESSION: 1. No MRI evidence of cervical extruded disc fragment. 2. Minimal degenerative anterolisthesis of C3 on C4. 3. Minimal degenerative anterolisthesis of C4 on C5 and moderately pronounced stenosis of the right intervertebral neural foramen. 4. Mild C5-C6 intervertebral osteochondritis (MODIC type I) and moderately pronounced stenosis of the intervertebral neural foramina. 5. Mild degenerative anterolisthesis of C7 on T1 and T3 on T4. 6. Normal cervical spinal cord. CBC, BMP, vitamin D, PTH intact (10/14/2021): BUN 34, creatinine 1.4, EGFR 39 CBC, BMP (02/20/2022): BUN 39 (high), creatinine 1.53 (high), EGFR 35 (low), BUN/creatinine ratio 25.5 (high) EKG (02/20/2022): Normal sinus rhythm. Normal EKG. CBC (03/19/2022): Unremarkable. BMP (03/26/2022): Sodium 135 (low), BUN 45 (high), creatinine 1.54 (high), EGFR 35 (low), BUN/creatinine ratio 29.2 (high) Coding Level of Care Code Off vis,est,level 3 Diagnoses Myalgia of muscle of neck M79.18 Neck pain M54.2 Essential tremor G25.0 Chronic fatigue R53.82 Fatigue type: chronic, unspecified CPT Codes Injection - Injection: 1-2 Sites () Assessment and Plan Assessment and Plan (1) Myalgia of muscle of neck: Status: Chronic (2) Neck pain: Status: Chronic (3) Essential tremor: Status: Chronic (4) Fatigue: Status: Chronic Qualifiers: Fatigue type: chronic, unspecified Qualified Code(s): R53.82 - Chronic fatigue, unspecified Orders: Orders Methylprednisolone 40mg Today M79.18 - Myalgia, other site Neurology POC Today M54.2 - Cervicalgia, M79.18 - Myalgia, other site Plan Details Additional Comments: The patient has an essential tremor. Her tremor has caused functional impairment but has diminished on her current therapy of propranolol and she is satisfied with her current level of tremor control. Prior use of low-dose primidone was not of benefit and caused sedation. Anxiety worsens her tremor. - Propranolol 10 mg 2 tablets BID will be continued. - If propranolol shout be suboptimally effective then initiation of a medication for anxiety may possibly be helpful for her tremor and this will be considered in the future. She has had gait imbalance for years. She has exhibited a wide-based unsteady gait. No motor strength or sensory deficits or rigidity were noted on prior exam. She exhibited rotatory nystagmus on rightward and leftward gaze and she reported that nystagmus has been present since childhood (the cause of her nystagmus is unknown). She denied having dizziness or lightheadedness. Chronic small vessel ischemic disease is reported on her head MRI. Over the years, she has had multiple courses of physical therapy for her gait disorder. Structural lumbar and hip conditions may be causing mechanical issues contributing to her gait imbalance. Over recent months her gait imbalance has fluctuated however no overall worsening has been noted. She has had chronic neck pain since a fall in 2020; she also had a hip fracture with this fall and underwent a partial hip replacement. She has had low back pain and had lumbar surgery in the past for lumbar vertebral fracture(s). A cervical MRI reveals multilevel degenerative joint disease. Due to chronic renal insufficiency, prescription NSAIDs will not be prescribed. Left lower cervical/medial upper trapezius muscle trigger point injections have been of benefit for her pain in this region. Her last left trapezius muscle trigger point injection was of modest benefit. She now has prominence of her neck pain and wishes to have another cervical trigger point injection. - Methylprednisolone 40 mg IM and bupivacaine 0.75% 5 mL IM was administered in the left lower cervical paraspinal muscles. She has fatigue. B12 injections have been of benefit for her fatigue. - Monthly B12 1000 mcg IM injections will be continued. Was administered today for her fatigue. I will have her return for reassessment in 6 months and return in 3 months for another trigger point injection. 08/26/224 <Electronically signed by Brandt Dang MD> Date Brandt Dang MD Cosigner Signature: Date (if applicable) CC: Kristina Roma DO Work Phone: Start: 08-25-2022 Plain chest X-ray Dr. Kristina Brandon Work Phone: Start: 08-25-2022 End: 08-25-2022 Chest PA and Lateral Procedure Note: See Note; NOTES: [facility] [address] [place] [address] Chest PA and Lateral MR#: [id number] Acct: [id number] Name: BITA THOMPSON Rep #: [id number] : 1945 F 76 From: Jeancarlos Melendez MD PCP: Dr. Kristina Brandon DO Status: DEP AMB Study: Chest PA and Lateral Date of Exam: 08/25/22 Exam# [id number] Ordering Dr: Jadyn Asif LODGING FACILITIES ATTENDANT-Brittany INDICATION: worsening cough EXAMINATION/TECHNIQUE: X-RAY - XR Chest 2 Views COMPARISON: FINDINGS: LINES/DEVICES: None. LUNGS: There is minimal compressive atelectasis at the left lung base. MEDIASTINUM AND CARDIOVASCULAR STRUCTURES: Cardiac silhouette not enlarged. Central airways and mediastinal contour are unremarkable. BONES AND SOFT TISSUES: Unremarkable. RAD/Chest PA and Lateral IMPRESSION: Minimal compressive atelectasis at the left lung base. Otherwise, no active chest disease. Electronically Signed: Jeancarlos Melendez, at 16:56 EDT , CC: CLAYTON Asif; Dr. Kristina Brandon DO Licensed Club Manager: Signed Jadyn Asif VP CLINICAL Work Phone: Start: 08-18-2022 End: 09-06-2022 Office Visit Report Procedure Note: See Note; NOTES: [facility] [address] [place] [address] OFFICE VISIT Date of Service: 08/18/22 MR#: [id number] Acct: [id number] Patient: BITA THOMPSON Rep #: [id number] : 1945 Provider: Dr. Brandt blackman MD Age/Sex: 76/F Location: [facility] Status: Signed Intake Vital Signs 06/10/22 10:25 08/18/22 10:10 Height 5 ft 6 in 5 ft 6 in Weight: 158 lb 3 oz BMI 25.5 BP 138/80 H Blood Pressure Location Rt brachial Position Sitting Respiration 17 Pulse 75 Pulse Source Monitor Temp 98.0 F Temp Source Temporal Pulse Oximetry (%) 98 Oxygen Delivery Method room air Intake Visit Reasons: B12 inject Chief Complaint: Allergies primidone Allergy (Severe, Verified 08/26/22 14:28) Anaphylaxis montelukast Allergy (Intermediate, Verified 08/26/22 14:28) Other alcohol [From Mastisol Adhesive] Allergy (Unknown, Verified 08/26/22 14:28) Rash beef derived (bovine) Allergy (Unknown, Verified 08/26/22 14:28) Unknown gum mastic [From Mastisol Adhesive] Allergy (Unknown, Verified 08/26/22 14:28) Rash methyl salicylate [From Mastisol Adhesive] Allergy (Unknown, Verified 08/26/22 14:28) Rash mold Allergy (Unknown, Verified 08/26/22 14:28) Difficulty Breathing/Wheezing penicillin V Allergy (Unknown, Verified 08/26/22 14:28) Rash storax [From Mastisol Adhesive] Allergy (Unknown, Verified 08/26/22 14:28) Rash Vosewya-NZS-GfL Reductase Inhibitor Allergy (Verified 08/26/22 14:28) NEEDS FOLLOW-UP Beta-Blockers (Beta-Adrenergic Bloc Adverse Reaction (Verified 08/26/22 14:28) Other Office Meds cyanocobalamin (vitamin B-12) 1,000 mcg/mL injection solution Performing Provider: Brandt Dang MD Performing Location: [facility] Administered by: Estephania Ledesma on 08/18/22 12:11 Dose Route Admin Location Dispensed Lot Number Expiration Date [facility] Man ufacturer 1,500 mcg IM right deltoid 1.5 mL [id number] 02/27/25 11728-919-08 DYANA REES Comments: Patient arrived in the office for a B12 injection for fatigue. Patient is alert and responds appropriately. Patient states that the last B12 injection was not effective for her fatigue. New order 1500mcg of B12 was given IM today. Patient tolerated the procedure well. 09/06/22 08 <Electronically signed by Brandt Dang MD> Date Brandt Dang MD Cosigner Signature: Date (if applicable) CC: Kristina Brandon DO Work Phone: Start: 07-19-2022 End: 07-30-2022 Office Visit Report Procedure Note: See Note; NOTES: [facility] [address] [place], [place] [address] [address] OFFICE VISIT Date of Service: 07/19/22 MR#: [id number] Acct: [id number] Patient: BITA THOMPSON Rep #: [id number] : 1945 Provider: Dr. Brandt blackman MD Age/Sex: 76/F Location: [facility]. Status: Signed Intake Vital Signs 07/19/22 10:33 Height 5 ft 6 in Weight: 157 lb 13 oz BMI 25.4 BP 124/70 H Blood Pressure Location Lt brachial Position Sitting Respiration 17 Pulse 61 Pulse Source Monitor Temp 98.6 F Temp Source Temporal Pulse Oximetry (%) 98 Oxygen Delivery Method room air Intake Visit Reasons: B12 inject Chief Complaint: Allergies primidone Allergy (Severe, Verified 05/17/22 08:30) Anaphylaxis montelukast Allergy (Intermediate, Verified 05/17/22 08:30) Other alcohol [From Mastisol Adhesive] Allergy (Unknown, Verified 05/17/22 08:30) Rash beef derived (bovine) Allergy (Unknown, Verified 05/17/22 08:30) Unknown gum mastic [From Mastisol Adhesive] Allergy (Unknown, Verified 05/17/22 08:30) Rash methyl salicylate [From Mastisol Adhesive] Allergy (Unknown, Verified 05/17/22 08:30) Rash mold Allergy (Unknown, Verified 05/17/22 08:30) Difficulty Breathing/Wheezing penicillin V Allergy (Unknown, Verified 05/17/22 08:30) Rash storax [From Mastisol Adhesive] Allergy (Unknown, Verified 05/17/22 08:30) Rash Pjwkgue-CXB-HoY Reductase Inhibitor Allergy (Verified 05/17/22 08:30) NEEDS FOLLOW-UP Beta-Blockers (Beta-Adrenergic Bloc Adverse Reaction (Verified 05/17/22 08:30) Other Office Meds cyanocobalamin (vitamin B-12) Performing Provider: Brandt Dang MD Administered by: Estephania Ledesma on 07/19/22 10:12 Dose Route Admin Location Lot Number Expiration Date [facility] Manufactu rer 1,000 mcg IM left deltoid [id number] 05/29/23 92341-889-99 NORA GANDHI Comments: Patient arrived in the office for a B12 injection for fatigue. Patient is alert and responds appropriately. Patient states that the last B12 injection was effective for her fatigue. A B12 1000mcg IM was given today. Patient tolerated the procedure well. 07/30/222234 <Electronically signed by Brandt Dang MD> Date Brandt Dang MD Cosigner Signature: Date (if applicable) CC: Kristina Brandon DO Work Phone: Start: 06-10-2022 End: 06-10-2022 Office Visit Report Procedure Note: See Note; NOTES: [facility] [place] [address] OFFICE VISIT Date of Service: 06/10/22 MR#: [id number] Acct: [id number] Patient: BITA THOMPSON Rep #: [id number] : 1945 Provider: Dr. Brandt blackman MD Age/Sex: 76/F Location: [facility]. Status: Signed Intake Vital Signs 03/11/22 11:28 05/17/22 08:21 06/10/22 10:25 Height 5 ft 6 in 5 ft 6 in 5 ft 6 in Weight: 157 lb 10 oz 156 lb 6 oz BMI 25.4 25.2 BP 138/82 H 134/80 H Blood Pressure Location Lt brachial Lt brachial Position Sitting Sitting Respiration 16 17 Pulse 71 63 Pulse Source Monitor Monitor Temp 98.4 F 98.6 F Temp Source Temporal Temporal Pulse Oximetry (%) 98 99 Oxygen Delivery Method room air room air Intake Visit Reasons: B12 inject Chief Complaint: Allergies primidone Allergy (Severe, Verified 05/17/22 08:30) Anaphylaxis montelukast Allergy (Intermediate, Verified 05/17/22 08:30) Other alcohol [From Mastisol Adhesive] Allergy (Unknown, Verified 05/17/22 08:30) Rash beef derived (bovine) Allergy (Unknown, Verified 05/17/22 08:30) Unknown gum mastic [From Mastisol Adhesive] Allergy (Unknown, Verified 05/17/22 08:30) Rash methyl salicylate [From Mastisol Adhesive] Allergy (Unknown, Verified 05/17/22 08:30) Rash mold Allergy (Unknown, Verified 05/17/22 08:30) Difficulty Breathing/Wheezing penicillin V Allergy (Unknown, Verified 05/17/22 08:30) Rash storax [From Mastisol Adhesive] Allergy (Unknown, Verified 05/17/22 08:30) Rash Cnnklob-Bhw-Abi Reductase Inhibitor [Dlfzgym-JXO-DdK Reductase Inhibitor] Allergy (Verified 05/17/22 08:30) NEEDS FOLLOW-UP Beta-Blockers (Beta-Adrenergic Bloc Adverse Reaction (Verified 05/17/22 08:30) Other Office Meds cyanocobalamin (vitamin B-12) Performing Provider: Brandt Dang MD Administered by: Estephania Ledesma on 06/10/22 10:26 Dose Route Admin Location Lot Number Expiration Date VTC Manufactu rer 1,000 mcg IM left deltoid 7 09/28/23 0769-8040-38 [employer] Comments: Patient arrived in the office for a B12 injection for fatigue. Patient is alert and responds appropriately. Patient states that the last B12 injections was effective for her fatigue. 1000mcg of B12 was given IM today. Patient tolerated the procedure well. 06/10/222146 <Electronically signed by Brandt Dang MD> Date Brandt Dang MD Cosigner Signature: Date (if applicable) CC: Kristina Brandon DO Work Phone: Start: 05-17-2022 End: 05-17-2022 Neurology Visit Report Procedure Note: See Note; NOTES: [facility] [address] [place] [address], [address] [place] [address] OFFICE VISIT Date of Service: 05/17/22 MR#: [id number] Acct: [id number] Name: BITA THOMPSON Rep #: [id number] : 1945 Provider: Dr. Brandt blackman MD Age/Sex: 76/F Location: [facility] Status: Signed Intake Vital Signs 05/17/22 08:21 Height 5 ft 6 in Weight: 157 lb 10 oz BMI 25.4 BP 138/82 H Blood Pressure Location Lt brachial Position Sitting Respiration 16 Pulse 71 Pulse Source Monitor Temp 98.4 F Temp Source Temporal Pulse Oximetry (%) 98 Oxygen Delivery Method room air Intake Visit Reasons: TRIGGER POINT Chief Complaint: Director Of Cardiology Required: No Accompanied by: Self Is patient in pain?: Yes (neck ) Pain scale (1-10): 9 Allergies primidone Allergy (Severe, Verified 05/17/22 08:30) Anaphylaxis montelukast Allergy (Intermediate, Verified 05/17/22 08:30) Other alcohol [From Mastisol Adhesive] Allergy (Unknown, Verified 05/17/22 08:30) Rash beef derived (bovine) Allergy (Unknown, Verified 05/17/22 08:30) Unknown gum mastic [From Mastisol Adhesive] Allergy (Unknown, Verified 05/17/22 08:30) Rash methyl salicylate [From Mastisol Adhesive] Allergy (Unknown, Verified 05/17/22 08:30) Rash mold Allergy (Unknown, Verified 05/17/22 08:30) Difficulty Breathing/Wheezing penicillin V Allergy (Unknown, Verified 05/17/22 08:30) Rash storax [From Mastisol Adhesive] Allergy (Unknown, Verified 05/17/22 08:30) Rash Zlqvhmy-FPZ-NnW Reductase Inhibitor Allergy (Verified 05/17/22 08:30) NEEDS FOLLOW-UP Beta-Blockers (Beta-Adrenergic Bloc Adverse Reaction (Verified 05/17/22 08:30) Other Medications famotidine 20 mg tablet (Pepcid) 20 mg PO DAILY 04/09/21 [History Confirmed 05/17/22] fenofibrate nanocrystallized 145 mg tablet (Tricor) 145 mg PO DAILY 04/09/21 [History Confirmed 05/17/22] folic acid 400 mcg tablet 0.4 mg PO DAILY 04/09/21 [History Confirmed 05/17/22] lisinopril 20 mg tablet 20 mg PO BID 04/09/21 [History Confirmed 05/17/22] prochlorperazine maleate 5 mg tablet 5 - 10 mg PO Q6H PRN Stomach Upset 04/09/21 [History Confirmed 05/17/22] albuterol sulfate 90 mcg/actuation aerosol inhaler 2 puff inhalation Q4H PRN shortness of breath or wheezing 07/16/21 [History Confirmed 05/17/22] potassium chloride 10 mEq tablet,extended release 10 meq PO QODAY 01/07/22 [History Confirmed 05/17/22] sulfamethoxazole 800 mg-trimethoprim 160 mg tablet (Bactrim DS) 1 tab PO BID 3 days #6 tabs 02/07/22 [Rx Confirmed 05/17/22] lifitegrast 5 % eye drops in a dropperette (Xiidra) 1 drp ophthalmic (eye) BID 03/11/22 [History Confirmed 05/17/22] propranolol 10 mg tablet 20 mg PO BID #360 tabs 05/13/22 [Rx Confirmed 05/17/22] PFSH Medical History Anal condyloma Asthma Balance disorder Basal cell carcinoma Benign joint hypermobility Cardiomegaly CKD stage G3b/A1, GFR 30-44 and albumin creatinine ratio <30 mg/g Coarse tremors Constipation COPD (chronic obstructive pulmonary disease) Decreased GFR Depression with anxiety Diarrhea Enchondroma Essential tremor GERD (gastroesophageal reflux disease) History of diverticulitis History of kidney stones Hyperlipemia Hypertension Idiopathic thrombocytopenic purpura (ITP) Impaired fasting glucose LUQ pain Nausea Nocturnal hypoxia CYNTHIA (obstructive sleep apnea) Osteopenia Pancreatic divisum Pneumonia Pre-diabetes Rectal abnormality Renal cyst Rosacea SOB (shortness of breath) Vitamin D deficiency Surgical History History of bladder surgery History of cataract surgery History of section History of cholecystectomy History of colon surgery History of D C History of hip replacement History of hysterectomy History of kidney surgery History of left hip replacement History of splenectomy Family History Father Cancer Diabetes CVA (cerebral vascular accident) Ulcer Grandfather Cancer Mother Hypertension CVA (cerebral vascular accident) Thyroid disorder Brother Hypertension Sister Hypertension Kidney disease Autoimmune disease Social History Smoking Status: Never smoker Electronic Cigarette Use: not used second hand exposure: No alcohol intake: never substance use type: does not use what type of physical activity do you participate in: none tiara/yazidi: Episcopal seatbelt use: always HPI HPI Chief Complaint: Office Procedures Neurology POC Injection: 1-2 Sites Details:: Interim History: Bita returns for trigger point injection. She had a fall in 2020 and sustained a left hip fracture for which she underwent a partial hip replacement. She has had neck pain since her fall in the spring 2020 that radiates to the left shoulder. Cervical paraspinal/upper trapezius muscle trigger point injections have been of benefit for her musculoskeletal pain. Her last trigger point injections provided about 7 to 8 weeks of pain reduction. She has had worsening of her left upper trapezius muscle pain for the past 4 weeks. Physical Exam: Neuro: The patient is awake and alert and responds appropriately Back: tenderness is noted over the left trapezius muscle rostrally and medially Procedure note: Left trapezius trigger point injection Informed consent was obtained. The injection site was prepped with an alcohol swab. Methylprednisolone 40 mg IM and bupivacaine 0.75% 5 mL IM was injected in the left trapezius muscle rostrally and medially. The injection site was bandaged. She tolerated the injection well. There were no complications. Office Meds methylprednisolone acetate Performing Provider: Brandt Dang MD Administered by: Estephania Ledesma on 05/17/22 08:40 Dose Route Admin Location Lot Number Expiration Date NDC Manufactu rer 40 mg IM left trapezius 20594 12/28/22 90956-243-32 [facility]. Coding Level of Care Code Attention Qian Diagnoses Myalgia M79.10 Dorsalgia M54.9 CPT Codes Injection - Injection: 1-2 Sites (60286) Assessment and Plan Assessment and Plan (1) Myalgia: Status: Chronic (2) Dorsalgia: Status: Chronic Orders: Orders Methylprednisolone 40mg Today M54.2 - Cervicalgia Neurology POC Today M54.9 - Dorsalgia, unspecified, M79.10 - Myalgia, unspecified site 05/17/22 1400 <Electronically signed by Brandt Dang MD> Date Brandt Dang MD Cosigner Signature: Date (if applicable) CC: Kristina Brandon DO Work Phone: Start: 05-10-2022 End: 05-10-2022 Office Visit Report Procedure Note: See Note; NOTES: [facility] [address] [place] [address] [place] [address] OFFICE VISIT Date of Service: 05/10/22 MR#: [id number] Acct: [id number] Patient: BITA THOMPSON Rep #: [id number] : 1945 Provider: Dr. Brandt blackman MD Age/Sex: 76/F Location: [facility] Status: Signed Intake Vital Signs 05/10/22 10:37 Height 5 ft 6 in Weight: 156 lb 10 oz BMI 25.2 BP 130/78 H Blood Pressure Location Lt brachial Position Sitting Respiration 17 Pulse 94 Pulse Source Monitor Temp 97.8 F Temp Source Temporal Pulse Oximetry (%) 97 Oxygen Delivery Method room air Intake Visit Reasons: B12 inject Chief Complaint: F/U CVA Allergies primidone Allergy (Severe, Verified 03/11/22 11:32) Anaphylaxis montelukast Allergy (Intermediate, Verified 03/11/22 11:32) Other alcohol [From Mastisol Adhesive] Allergy (Unknown, Verified 03/11/22 11:32) Rash beef derived (bovine) Allergy (Unknown, Verified 03/11/22 11:32) Unknown gum mastic [From Mastisol Adhesive] Allergy (Unknown, Verified 03/11/22 11:32) Rash methyl salicylate [From Mastisol Adhesive] Allergy (Unknown, Verified 03/11/22 11:32) Rash mold Allergy (Unknown, Verified 03/11/22 11:32) Difficulty Breathing/Wheezing penicillin V Allergy (Unknown, Verified 03/11/22 11:32) Rash storax [From Mastisol Adhesive] Allergy (Unknown, Verified 03/11/22 11:32) Rash Ygluevl-FWS-QiM Reductase Inhibitor Allergy (Verified 03/11/22 11:32) NEEDS FOLLOW-UP Beta-Blockers (Beta-Adrenergic Bloc Adverse Reaction (Verified 03/11/22 11:32) Other Office Meds cyanocobalamin (vitamin B-12) Performing Provider: Brandt Dang MD Administered by: Killian Oliveira on 05/10/22 10:37 Dose Route Admin Location Lot Number Expiration Date [facility] Manufactu rer 1,000 mcg IM left deltoid 21907/29/23 [id number] [employer] Comments: Patient arrives in the office for a B12 injection for fatigue. Patient responds appropriately. Patient states that the last B12 injection was effective for her fatigue. 1000mcg of B12 given IM today. Patient tolerated the procedure well. 05/10/221751 <Electronically signed by Brandt Dang MD> Date Brandt Dang MD Cosigner Signature: Date (if applicable) CC: Kristina Brandon DO Work Phone: Start: 03-11-2022 End: 03-11-2022 Neurology Visit Report Procedure Note: See Note; NOTES: [facility] [address] [place] [address], [address] [place] [address] OFFICE VISIT Date of Service: 03/11/22 MR#: [id number] Acct: [id number] Name: BITA THOMPSON Rep #: [id number] : 1945 Provider: Dr. Brandt blackman MD Age/Sex: 76/F Location: [facility] Status: Signed Intake Vital Signs 10/20/21 11:10 02/20/22 11:58 03/11/22 11:28 Height 5 ft 6 in 5 ft 6 in 5 ft 6 in Weight: 155 lb 158 lb 10 oz BMI 25.0 25.6 BP 171/81 H 140/80 H Blood Pressure Location Lt brachial Position Sitting Respiration 15 17 Pulse 66 68 Pulse Source Monitor Temp 97.7 F L 98.9 F Temp Source Temporal Temporal Pulse Oximetry (%) 98 98 Oxygen Delivery Method room air Intake Visit Reasons: 4 M FU Chief Complaint: F/U CVA Director Of Cardiology Required: No Accompanied by: Is patient in pain?: No Allergies primidone Allergy (Severe, Verified 03/11/22 11:32) Anaphylaxis montelukast Allergy (Intermediate, Verified 03/11/22 11:32) Other alcohol [From Mastisol Adhesive] Allergy (Unknown, Verified 03/11/22 11:32) Rash beef derived (bovine) Allergy (Unknown, Verified 03/11/22 11:32) Unknown gum mastic [From Mastisol Adhesive] Allergy (Unknown, Verified 03/11/22 11:32) Rash methyl salicylate [From Mastisol Adhesive] Allergy (Unknown, Verified 03/11/22 11:32) Rash mold Allergy (Unknown, Verified 03/11/22 11:32) Difficulty Breathing/Wheezing penicillin V Allergy (Unknown, Verified 03/11/22 11:32) Rash storax [From Mastisol Adhesive] Allergy (Unknown, Verified 03/11/22 11:32) Rash Wmngkjy-ACZ-YiO Reductase Inhibitor Allergy (Verified 03/11/22 11:32) NEEDS FOLLOW-UP Beta-Blockers (Beta-Adrenergic Bloc Adverse Reaction (Verified 03/11/22 11:32) Other Medications famotidine 20 mg tablet (Pepcid) 20 mg PO DAILY 04/09/21 [History Confirmed 03/11/22] fenofibrate nanocrystallized 145 mg tablet (Tricor) 145 mg PO DAILY 04/09/21 [History Confirmed 03/11/22] folic acid 400 mcg tablet 0.4 mg PO DAILY 04/09/21 [History Confirmed 03/11/22] lisinopril 20 mg tablet 20 mg PO BID 04/09/21 [History Confirmed 03/11/22] prochlorperazine maleate 5 mg tablet 5 - 10 mg PO Q6H PRN Stomach Upset 04/09/21 [History Confirmed 03/11/22] albuterol sulfate 90 mcg/actuation aerosol inhaler 2 puff inhalation Q4H PRN shortness of breath or wheezing 07/16/21 [History Confirmed 03/11/22] potassium chloride 10 mEq tablet,extended release 10 meq PO QODAY 01/07/22 [History Confirmed 03/11/22] sulfamethoxazole 800 mg-trimethoprim 160 mg tablet (Bactrim DS) 1 tab PO BID 3 days #6 tabs 02/07/22 [Rx Confirmed 03/11/22] lifitegrast 5 % eye drops in a dropperette (Xiidra) 1 drp ophthalmic (eye) BID 03/11/22 [History Confirmed 03/11/22] propranolol 10 mg tablet 20 mg PO BID #120 tabs 03/11/22 [Rx Confirmed 03/11/22] PFSH Medical History Anal condyloma Asthma Balance disorder Basal cell carcinoma Benign joint hypermobility Cardiomegaly CKD stage G3b/A1, GFR 30-44 and albumin creatinine ratio <30 mg/g Coarse tremors Constipation COPD (chronic obstructive pulmonary disease) Decreased GFR Depression with anxiety Diarrhea Enchondroma Essential tremor GERD (gastroesophageal reflux disease) History of diverticulitis History of kidney stones Hyperlipemia Hypertension Idiopathic thrombocytopenic purpura (ITP) Impaired fasting glucose LUQ pain Nausea Nocturnal hypoxia CYNTHIA (obstructive sleep apnea) Osteopenia Pancreatic divisum Pneumonia Pre-diabetes Rectal abnormality Renal cyst Rosacea SOB (shortness of breath) Vitamin D deficiency Surgical History History of bladder surgery History of cataract surgery History of section History of cholecystectomy History of colon surgery History of D C History of hip replacement History of hysterectomy History of kidney surgery History of left hip replacement History of splenectomy Family History Father Cancer Diabetes CVA (cerebral vascular accident) Ulcer Grandfather Cancer Mother Hypertension CVA (cerebral vascular accident) Thyroid disorder Brother Hypertension Sister Hypertension Kidney disease Autoimmune disease Social History Smoking Status: Never smoker Electronic Cigarette Use: not used second hand exposure: No alcohol intake: never substance use type: does not use what type of physical activity do you participate in: none tiara/yazidi: Episcopal seatbelt use: always HPI HPI Chief Complaint: F/U CVA Details: Interim History: Bita returns for follow-up visit. She has a history of hypertension, hyperlipidemia, obstructive sleep apnea on CPAP, COPD, basal cell skin cancer status post excision, stage III renal insufficiency, prior history of idiopathic thrombocytopenic purpura (status post splenectomy in 1969) and essential tremor. She has had a tremor since she was a teenager and this worsened during adulthood. Her tremor has interfered with activities including handwriting and using cooking utensils. The tremor affects both hands and is increased with action and when she is tired or anxious. She also has a head tremor. Increasing her dose of propranolol to 20 mg twice daily has been of benefit for her tremor and has been well-tolerated. Primidone 50 mg daily, tried in years past, was not of benefit and caused sedation. She has had nystagmus noted on examination since childhood. Since around 2006, she has had gait imbalance. She has had physical therapy multiple times in the past. She has had low back pain and has bilateral hip pain and a feeling of stiffness in the hips. She had a fall in 2016 and sustained lumbar compression fracture(s) and underwent lumbar surgery at the L3-4-5 levels in 2016. This was of benefit and her low back pain subsided. She denied having any radicular pain in the lower extremities. She had a fall in 2020 and sustained a left hip fracture for which she underwent a partial hip replacement. She has had neck pain since her fall in the spring 2020 that radiates to the left shoulder. Cervical paraspinal/upper trapezius muscle trigger point injections have been of benefit for her musculoskeletal pain. Acetaminophen has been of benefit for her musculoskeletal pain. She denied having weakness. She reported that the cause of her nystagmus is unknown. She has chronic anxiety. Records indicate that a trial of Trokendi caused sedation. She was hospitalized in August 2021 for urinary tract infection with acute renal insufficiency superimposed on chronic renal insufficiency. Physical Exam: Neuro: The patient is awake and alert and responds appropriately; speech is fluent; no rigidity is noted in the wrists; a mild tremor is noted in the hands when arms are extended; she is able to ambulate independently Heart: regular rate and rhythm Neck no bruits Office Meds cyanocobalamin (vitamin B-12) Performing Provider: Brandt Dang MD Administered by: Estephania Ledesma on 03/11/22 12:41 Dose Route Admin Location Lot Number Expiration Date NDC Manufactu rer 1,000 mcg IM left deltoid 0 07/28/22 [id number] [facility] Comments: Patient was given her first B12 injection for fatigue. Patient is alert and responds appropriately. 1000mcg of B12 given IM today. Patient tolerated procedure well. Supplemental Info CBC, CMP (03/18/2021): BUN 38, creatinine 1.37, EGFR 40, glucose 125. TSH, creatinine (04/09/21): creatinine 1.61, eGFR 33 Head MRI (04/23/21): FINDINGS: BRAIN AND EXTRA-AXIAL SPACES: T2 FLAIR hyperintensity foci in the white matter of both cerebral hemispheres are nonenhancing and have no mass effects. These are chronic white matter ischemic changes. No enhancing lesions intraaxially and extra-axially. No remote cortical based ischemic infarcts. No midline shift and no mass effects. Normal ventricles and cisterns. No intra- or extra-axial hemorrhage. Posterior fossa structures are unremarkable. SELLA: Unremarkable. Normal sella turcica, pituitary gland, infundibular stalk, optic chiasm and hypothalamus. AUDITORY SYSTEM: Unremarkable. The internal auditory canals are patent. BONES/JOINTS: Unremarkable. No discrete lytic or blastic abnormalities. SINUSES: Unremarkable as visualized. Clear. MASTOID AIR CELLS: Unremarkable as visualized. Clear. ORBITS: Unremarkable as visualized. Both globes, extraocular muscles, optic nerves and retrobulbar fat appear unremarkable. VASCULATURE: Unremarkable as visualized. Normal flow voids in the major intracranial circulation. IMPRESSION: 1. No MRI evidence of acute or subacute ischemic infarct or remote cortical based ischemic infarct. 2. No MRI evidence of intracranial mass. 3. Chronic white matter ischemic changes in both cerebral hemispheres. 4. No abnormal enhancing lesions intraaxially and extra-axially. Cervical MRI (04/23/21): FINDINGS: Normal foramen magnum and brainstem-cervical cord junction. Normal craniovertebral junction. Normal anterior atlantoaxial articulation. Normal odontoid process. Normal cervical lordosis. Normal vertebral bodies and posterior osseous elements. C2-3: Normal endplates. Normal disc height, signal and morphology. Normal central canal and intervertebral neural foramina. C3-4: Normal endplates. Normal disc height. Minimal degenerative anterolisthesis of C3 on C4. Normal central canal and intervertebral neural foramina. C4-5: Normal endplates. Mild disc space height narrowing. Mild degenerative anterolisthesis of C4 on C5. Normal central canal and left intervertebral neural foramen. Moderately pronounced stenosis of the right intervertebral neural foramen. C5-6: MODIC type I degenerative vertebral marrow edema underneath the vertebral endplates. Moderate disc space height narrowing. Anterior and posterior marginal spurs. Normal central canal. Moderately pronounced stenosis of the intervertebral neural foramina. C6-7: Anterior posterior marginal spurs. Normal endplates. Moderate disc space height narrowing. Normal central canal and intervertebral neural foramina. C7-T1: Normal endplates. Normal disc height. Mild degenerative anterolisthesis of C7 on T1. Normal intervertebral neural foramina. Perineural cyst in the right intervertebral neural foramen. T1-T2: (Sagittal only). Normal endplates. Normal disc height. Minimal ventral extradural defect due to small posterior bulging annulus. Normal central canal and intervertebral neural foramina. T2-3: (Sagittal only). Normal endplates. Normal disc height. Minimal ventral extra dural defect due to small posterior bulging annulus. Normal central canal and intervertebral neural foramina. T3-T4: (Sagittal only). Normal endplates. Minimal disc space height narrowing. Mild degenerative anterolisthesis of T3 on T4. Normal central canal and intervertebral neural foramina. T4-T5 and T5-T6: (Sagittal only). Normal endplates. Normal disc height and morphology. Normal central canal and intervertebral neural foramina. Normal cervical cord. Normal upper thoracic spinal cord. Normal included portions of the brainstem and cerebellum. Normal visualized soft tissue structures. IMPRESSION: 1. No MRI evidence of cervical extruded disc fragment. 2. Minimal degenerative anterolisthesis of C3 on C4. 3. Minimal degenerative anterolisthesis of C4 on C5 and moderately pronounced stenosis of the right intervertebral neural foramen. 4. Mild C5-C6 intervertebral osteochondritis (MODIC type I) and moderately pronounced stenosis of the intervertebral neural foramina. 5. Mild degenerative anterolisthesis of C7 on T1 and T3 on T4. 6. Normal cervical spinal cord. CBC, BMP, vitamin D, PTH intact (10/14/2021): BUN 34, creatinine 1.4, EGFR 39 CBC, BMP (02/20/2022): BUN 39 (high), creatinine 1.53 (high), EGFR 35 (low), BUN/creatinine ratio 25.5 (high) EKG (02/20/2022): Normal sinus rhythm. Normal EKG. Coding Level of Care Code Off vis,est,level 4 Diagnoses Essential tremor G25.0 Neck pain M54.2 Fatigue R53.83 Assessment and Plan Assessment and Plan (1) Essential tremor: Status: Chronic (2) Neck pain: Status: Chronic (3) Fatigue: Status: Acute Orders: Orders Vitamin B12 Today R53.83 - Other fatigue Medications: Refilled propranolol Take 2 tablets PO BID 20 mg (2 x 10 mg) PO BID 120 tabs 5RF Plan Details Additional Comments: The patient has an essential tremor. Her tremor has caused functional impairment but has diminished on her current therapy of propranolol and she is satisfied with her current level of tremor control. Prior use of low-dose primidone was not of benefit and caused sedation. Anxiety worsens her tremor. - Propranolol 10 mg 2 tablets BID will be continued. - If propranolol shout be suboptimally effective then initiation of a medication for anxiety may possibly be helpful for her tremor and this will be considered in the future. She has had gait imbalance for years. She has exhibited a wide-based unsteady gait. No motor strength or sensory deficits or rigidity were noted on exam. She exhibited rotatory nystagmus on rightward and leftward gaze and she reported that nystagmus has been present since childhood (the cause of her nystagmus is unknown). She denied having dizziness or lightheadedness. Chronic small vessel ischemic disease is reported on her head MRI. Over the years, she has had multiple courses of physical therapy for her gait disorder. Structural lumbar and hip conditions may be causing mechanical issues contributing to her gait imbalance. She has had chronic neck pain since a fall in 2020; she also had a hip fracture with this fall and underwent a partial hip replacement. She has had low back pain and had lumbar surgery in the past for lumbar vertebral fracture(s). A cervical MRI reveals multilevel degenerative joint disease. Due to chronic renal insufficiency, prescription NSAIDs will not be prescribed. Left lower cervical/medial upper trapezius muscle trigger point injections have been of benefit for her pain in this region. - If she should have worsening neck pain in the coming months, she may return for further trigger point injections. She has fatigue. - B12 1000 mcg IM was administered today for her fatigue. I will have her return for reassessment in 4 months. 03/11/221840 <Electronically signed by Brandt Dang MD> Date Brandt Dang MD Cosigner Signature: Date (if applicable) CC: Kristina Brandon DO Work Phone: Start: 02-20-2022 End: 02-20-2022 Emergency Department Summary Procedure Note: See Note; NOTES: Lane [facility] [address] [place] [place] [address] Emergency Department Summary 02/20/22 MR#: [id number] Acct: [id number] Name: BITA THOMPSON Rep #: [id number] : 1945 76 From: Arnoldo Monae DO PCP: Dr. Kristina Brandon DO Status:REG ER Location: ED HPI History of Present Illness Chief Complaint: Chest Pain Narrative Narrative: 76-year-old female presenting with chest pain. She states she has had this on and off throughout the last 7 days. She describes it as pressure. She does not get lightheaded, weak, diaphoretic. She states she feels short of breath but this is chronic and unchanged. She states her primary care physician told her she had COPD. She states has never been a smoker. Her social service manager told her she has asthma. She does not feel that she has been wheezing. She denies fever, chills, myalgias. She has a cough with clear sputum. She does not feel unwell. Today her chest pressure has been present since 6 AM when she woke up without any other symptoms. [facility] Medical History Anal condyloma Asthma Balance disorder Basal cell carcinoma Benign joint hypermobility Cardiomegaly CKD stage G3b/A1, GFR 30-44 and albumin creatinine ratio <30 mg/g Coarse tremors Constipation COPD (chronic obstructive pulmonary disease) Decreased GFR Depression with anxiety Diarrhea Enchondroma Essential tremor GERD (gastroesophageal reflux disease) History of diverticulitis History of kidney stones Hyperlipemia Hypertension Idiopathic thrombocytopenic purpura (ITP) Impaired fasting glucose LUQ pain Nausea Nocturnal hypoxia CYNTHIA (obstructive sleep apnea) Osteopenia Pancreatic divisum Pneumonia Pre-diabetes Rectal abnormality Renal cyst Rosacea SOB (shortness of breath) Vitamin D deficiency Home Medications famotidine 20 mg tablet (Pepcid) 20 mg PO DAILY 04/09/21 [History Last Taken Unknown] fenofibrate nanocrystallized 145 mg tablet (Tricor) 145 mg PO DAILY 04/09/21 [History Last Taken Unknown] folic acid 400 mcg tablet 0.4 mg PO DAILY 04/09/21 [History Last Taken Unknown] lisinopril 20 mg tablet 20 mg PO BID 04/09/21 [History Last Taken Unknown] prochlorperazine maleate 5 mg tablet 5 - 10 mg PO Q6H PRN Stomach Upset 04/09/21 [History Last Taken Unknown] albuterol sulfate 90 mcg/actuation aerosol inhaler 2 puff inhalation Q4H PRN shortness of breath or wheezing 07/16/21 [History Last Taken Unknown] propranolol 10 mg tablet 20 mg PO BID #120 tabs 10/20/21 [Rx Last Taken Unknown] potassium chloride 10 mEq tablet,extended release 10 meq PO QODAY 01/07/22 [History Last Taken Unknown] sulfamethoxazole 800 mg-trimethoprim 160 mg tablet (Bactrim DS) 1 tab PO BID 3 days #6 tabs 02/07/22 [Rx Last Taken Unknown] Allergy/AdvReac Type Severity Reaction Status Date / Time primidone Allergy Severe Anaphylaxis Verified 02/20/22 11:52 montelukast Allergy Intermediate Other Verified 02/20/22 11:52 alcohol Allergy Unknown Rash Verified 02/20/22 11:52 [From Mastisol Adhesive] beef derived (bovine) Allergy Unknown Unknown Verified 02/20/22 11:52 gum mastic Allergy Unknown Rash Verified 02/20/22 11:52 [From Mastisol Adhesive] methyl salicylate Allergy Unknown Rash Verified 02/20/22 11:52 [From Mastisol Adhesive] mold Allergy Unknown Difficulty Verified 02/20/22 11:52 Breathing/Wheezing penicillin V Allergy Unknown Rash Verified 02/20/22 11:52 storax Allergy Unknown Rash Verified 02/20/22 11:52 [From Mastisol Adhesive] Oarjdwj-ZPV-MzH Reductase Allergy NEEDS Verified 02/20/22 11:52 Inhibitor FOLLOW-UP Beta-Blockers AdvReac Other Verified 02/20/22 11:52 (Beta-Adrenergic Bloc Family History Father Cancer Diabetes CVA (cerebral vascular accident) Ulcer Grandfather Cancer Mother Hypertension CVA (cerebral vascular accident) Thyroid disorder Brother Hypertension Sister Hypertension Kidney disease Autoimmune disease Surgical History History of bladder surgery History of cataract surgery History of section History of cholecystectomy History of colon surgery History of D C History of hip replacement History of hysterectomy History of kidney surgery History of left hip replacement History of splenectomy Social History Smoking Status: Never smoker Electronic Cigarette Use: not used second hand exposure: No alcohol intake: never substance use type: does not use what type of physical activity do you participate in: none tiara/yazidi: Episcopal seatbelt use: always ROS ROS ED Constitutional Constitutional ED: Denies chills or sweats Eyes Eyes: Denies blurry vision or change in vision ENT ENT ED: Denies rhinorrhea or sore throat Cardiovascular Cardiovascular: Reports as per HPI Respiratory/Chest Respiratory/Chest: Reports cough and dyspnea Gastrointestinal Gastrointestinal: Denies abdominal pain or constipation Genitourinary Genitourinary ED: Denies dysuria or hematuria Musculoskeletal Musculoskeletal: Denies arthralgias or back pain Integumentary Denies abscess Neurologic Neurologic: Denies headache(s) or paresthesias Psychiatric Psychiatric: Denies anxiety or depression EXAM Physical Exam Const Vital Signs: 02/20/22 11:58 02/20/22 12:14 Temperature 97.7 F L Temperature Source Temporal Pulse Rate 66 Respiratory Rate 15 Blood Pressure 171/81 H Blood Pressure Mean 111 Pulse Ox 98 98 Oxygen Delivery Method Room Air Room Air Positive well nourished General Appearance ED: NAD; Negative for pallor HEENT Reports moist mucous membranes Eyes PERRL and EOMs intact bilaterally Chest Wall inspection of chest normal Resp normal respiratory effort and clear to auscultation bilaterally Auscultation: Negative for rales, rhonchi or wheezes Cardio regular rate and regular rhythm GI normal to inspection, nondistended, normoactive bowel sounds Extremity normal to inspection Neuro oriented x3 and CN's II-XII intact bilaterally Sensorium / Orientation: awake and alert Motor Exam: strength 5/5 throughout Psych mental status grossly normal Skin no rashes or lesions noted General Skin Exam: Negative for jaundice or pallor Heart Score History: Slightly/Non-Suspicious ECG: Normal Age: >/= 65 years Risk Factors: 1 or 2 Risk Factors Troponin: </= Normal Limit Score: 3 MDM MDM MDM Narrative Medical decision making narrative: 76-year-old female presenting with chest pressure which has been present for about 6 hours today. It has been intermittent throughout the week. Patient is PERC negative. EKG on my interpretation is normal sinus rhythm with a ventricular rate of 67 bpm without sign of ischemic change. CBC and BMP are unremarkable. High-sensitivity troponin. Chest x-ray my interpretation shows no acute cardiopulmonary process and radiologist interpretation agrees given that this has been going on for a week with constant pain for 6 hours I do not believe this is cardiac and I do not believe she needs a delta troponin. Vital signs are stable and she is afebrile. Her lungs are clear to auscultation. I think she is stable for discharge home with follow-up with her primary care physician. Impression: 1. Dyspnea 2. Chest pain Lab Data Attestation: I reviewed the patient's lab results. Labs: Laboratory Results - last 24 hr 02/20/22 02/20/22 12:08 12:08 WBC 9.6 RBC 4.44 Hgb 13.3 Hct 41.7 MCV 93.9 MCH 30.0 MCHC 31.9 L RDW Std Deviation 50.6 H RDW Coeff of Zachariah 14.6 Plt Count 300 MPV 11.3 Immature Gran % (Auto) 0.300 Neut % (Auto) 65.9 Lymph % (Auto) 21.6 Cloud % (Auto) 9.7 Eos % (Auto) 2.4 Baso % (Auto) 0.1 Absolute Neuts (auto) 6.4 Absolute Lymphs (auto) 2.08 Nucleated RBC % 0 Sodium 139 Potassium 4.3 Chloride 107 Carbon Dioxide 26.0 Anion Gap 6 BUN 39 H Creatinine 1.53 H Estim Creat Clear Calc 29.28 Est GFR (MDRD) Af Amer 42 L Est GFR (MDRD) Non-Af 35 L BUN/Creatinine Ratio 25.5 H Glucose 99 Calcium 9.4 Troponin I High Sens 6 Radiography Diagnostic Testing: Clinical Impression(s) from Imaging Studies Chest X-Ray 02/20/22 12:05 IMPRESSION: Persistent and/or recurrent atelectasis and/or scarring at the lung bases no visualized focal infiltrate. Electronically Signed: Mima Pickering MD at 13:10 EST , Discharge Plan Triage Chief Complaint: Chest Pain ED Provider: Arnoldo Monae Dx/Rx/DC Orders Instructions: ED Chest Pain, Uncertain Cause Prescriptions: No Action prochlorperazine maleate 5 mg tablet 5 - 10 mg PO Q6H PRN (Reason: Stomach Upset) lisinopril 20 mg tablet 20 mg PO BID fenofibrate nanocrystallized [Tricor] 145 mg tablet 145 mg PO DAILY famotidine [Pepcid] 20 mg tablet 20 mg PO DAILY folic acid 400 mcg tablet 0.4 mg PO DAILY albuterol sulfate 90 mcg/actuation HFA aerosol inhaler 2 puff inhalation Q4H PRN (Reason: shortness of breath or wheezing) propranolol 10 mg tablet 20 mg PO BID Qty: 120 4RF Rx Instructions: Take 2 tablets PO BID potassium chloride 10 mEq tablet extended release 10 meq PO QODAY sulfamethoxazole-trimethop rim [Bactrim DS] 800-160 mg tablet 1 tab PO BID 3 Days Qty: 6 0RF Primary Care Provider: Kristina Brandon Referrals: Kristina Brandon DO [Primary Care Provider] - Disposition Disposition: Home, Self Care What to do if you have Problems For any increased pain, shortness of breath, bleeding, nausea or vomiting, chest pain, or any unexpected problems, contact your Primary Care Provider. Call [facility] ([phone]) or report to the closest Emergency Room. Call 911 if necessary. 02/20/22 1327 <Electronically signed by Arnoldo Monae DO> Cosigner Signature (if applicable): CC: Dr. Kristina Brandon DO Signed Kristina Brandon DO Work Phone: Start: 02-20-2022 End: 02-20-2022 Chest 1 View (Portable) Procedure Note: See Note; NOTES: [facility] Imaging Services [address] [place] [id number] Chest 1 View (Portable) MR#: [id number] Acct: [id number] Name: BITA THOMPSON Rep #: [id number] : 1945 F 76 From: Mima Pickering MD PCP: Dr. Kristina Brandon DO Status: REG ER Study: Chest 1 View (Portable) Date of Exam: 02/20/22 Exam# [id number] Ordering Dr: Arnoldo Monae DO STUDY: X-RAY CHEST REASON FOR EXAM: Female, 76 years old. Chest pain TECHNIQUE: Single AP portable view of the chest. COMPARISON: March 18, 2021 x-ray FINDINGS: There is persistent minimal linear density in the lung bases. There is no demonstrated pleural abnormality. There is borderline cardiomegaly. Normal mediastinum and ge. Normal visualized pulmonary arteries. Normal visualized aortic arch and descending thoracic aorta. Normal visualized thoracic spine. Normal visualized ribs, clavicles, and shoulders. There is no demonstrated abnormality of the visualized soft tissue structures of the upper abdomen. RAD/Chest 1 View (Portable) IMPRESSION: Persistent and/or recurrent atelectasis and/or scarring at the lung bases no visualized focal infiltrate. Electronically Signed: Mima Pickering MD at 13:10 EST Reading Location ID and State: [facility] / [place] Tel , Service support , CC: Dr. Arnoldo Monae DO; Dr. Kristina Brandon DO Licensed Club Manager: Signed Kristina Brandon DO Work Phone: Start: 02-20-2022 Plain chest X-ray Dr. Kristina Brandon Work Phone: Start: 02-07-2022 End: 02-07-2022 Emergency Department Summary Procedure Note: See Note; NOTES: [facility] Medical Records Department [address] [place] [address] Emergency Department Summary 02/07/22 MR#: [id number] Acct: [id number] Name: BITA THOMPSON Rep #: [id number] : 1945 76 From: Arik Rooney MD PCP: Dr. Kristina Brandon DO Status:DEP ER Location: ED HPI HPI - URI History of Present Illness Chief Complaint: Nosebleed Informant: patient Onset/Context/Timing Onset: Weeks Context: Gradual Onset Timing: Intermittent Current Severity: Mild Maximum Severity: Mild Worsened by: Not Worsened By Swallowing, Eating Solids or Drinking Liquids Associated Symptoms Associated Symptoms: Positive for Nasal Congestion Narrative Narrative: 76-year-old female history of ITP recently had her blood work checked it was fine. Also history of prediabetes and chronic kidney disease stage III. Says for the last 3 weeks she has had intermittent nosebleeds. Nose that she has scabs inside her nose and at times she does pick at those. Had URI symptoms before this started. She is on no blood thinners does not use oxygen but does wear CPAP at night. She has had nosebleeds before. Denies any melena or hematuria. No easy bruising. Prior similar symptoms: Yes Recent Illness/Hospitalization: No ROS ROS ED ROS Narrative Recent URI. Nosebleeds. Review of Systems ROS Unobtainable: Denies due to encephalopathy Constitutional Constitutional ED: Denies chills or fever(s) Eyes Eyes: Denies blurry vision ENT ENT ED: Reports rhinorrhea; Denies ear pain or sore throat Cardiovascular Cardiovascular: Denies chest pain or palpitations Respiratory/Chest Respiratory/Chest: Reports cough; Denies dyspnea Gastrointestinal Gastrointestinal: Denies abdominal pain, constipation, diarrhea, melena, nausea or vomiting Genitourinary Genitourinary ED: Denies dysuria or hematuria Musculoskeletal Musculoskeletal: Denies arthralgias Integumentary Denies abscess Neurologic Neurologic: Denies headache(s) Psychiatric Psychiatric: Denies anxiety or depression Endocrine Endocrinology: Denies cold intolerance Hematologic/Lymphatic Hematologic/Lymphatic: Denies easy bleeding, easy bruising or lymphadenopathy Allergic/Immunologic Allergic/Immunologic ED: Denies mouth swelling, tongue swelling or urticaria PFSH [facility] Medical History Anal condyloma Asthma Balance disorder Basal cell carcinoma Benign joint hypermobility Cardiomegaly CKD stage G3b/A1, GFR 30-44 and albumin creatinine ratio <30 mg/g Coarse tremors Constipation COPD (chronic obstructive pulmonary disease) Decreased GFR Depression with anxiety Diarrhea Enchondroma Essential tremor GERD (gastroesophageal reflux disease) History of diverticulitis History of kidney stones Hyperlipemia Hypertension Idiopathic thrombocytopenic purpura (ITP) Impaired fasting glucose LUQ pain Nausea Nocturnal hypoxia CYNTHIA (obstructive sleep apnea) Osteopenia Pancreatic divisum Pneumonia Pre-diabetes Rectal abnormality Renal cyst Rosacea SOB (shortness of breath) Vitamin D deficiency Home Medications famotidine 20 mg tablet (Pepcid) 20 mg PO DAILY 04/09/21 [History Last Taken Unknown] fenofibrate nanocrystallized 145 mg tablet (Tricor) 145 mg PO DAILY 04/09/21 [History Last Taken Unknown] folic acid 400 mcg tablet 0.4 mg PO DAILY 04/09/21 [History Last Taken Unknown] lisinopril 20 mg tablet 20 mg PO BID 04/09/21 [History Last Taken Unknown] prochlorperazine maleate 5 mg tablet 5 - 10 mg PO Q6H PRN Stomach Upset 04/09/21 [History Last Taken Unknown] albuterol sulfate 90 mcg/actuation aerosol inhaler 2 puff inhalation Q4H PRN shortness of breath or wheezing 07/16/21 [History Last Taken Unknown] propranolol 10 mg tablet 20 mg PO BID #120 tabs 10/20/21 [Rx Last Taken Unknown] potassium chloride 10 mEq tablet,extended release 10 meq PO QODAY 01/07/22 [History Last Taken Unknown] sulfamethoxazole 800 mg-trimethoprim 160 mg tablet (Bactrim DS) 1 tab PO BID 3 days #6 tabs 02/07/22 [Rx Last Taken Unknown] Allergy/AdvReac Type Severity Reaction Status Date / Time primidone Allergy Severe Anaphylaxis Verified 02/07/22 09:30 montelukast Allergy Intermediate Other Verified 02/07/22 09:30 alcohol Allergy Unknown Rash Verified 02/07/22 09:30 [From Mastisol Adhesive] beef derived (bovine) Allergy Unknown Unknown Verified 02/07/22 09:30 gum mastic Allergy Unknown Rash Verified 02/07/22 09:30 [From Mastisol Adhesive] methyl salicylate Allergy Unknown Rash Verified 02/07/22 09:30 [From Mastisol Adhesive] mold Allergy Unknown Difficulty Verified 02/07/22 09:30 Breathing/Wheezing penicillin V Allergy Unknown Rash Verified 02/07/22 09:30 storax Allergy Unknown Rash Verified 02/07/22 09:30 [From Mastisol Adhesive] Smykfgi-TPX-LyC Reductase Allergy NEEDS Verified 02/07/22 09:30 Inhibitor FOLLOW-UP Beta-Blockers AdvReac Other Verified 02/07/22 09:30 (Beta-Adrenergic Bloc Family History Father Cancer Diabetes CVA (cerebral vascular accident) Ulcer Grandfather Cancer Mother Hypertension CVA (cerebral vascular accident) Thyroid disorder Brother Hypertension Sister Hypertension Kidney disease Autoimmune disease Surgical History History of bladder surgery History of cataract surgery History of section History of cholecystectomy History of colon surgery History of D C History of hip replacement History of hysterectomy History of kidney surgery History of left hip replacement History of splenectomy Social History Smoking Status: Never smoker Electronic Cigarette Use: not used second hand exposure: No alcohol intake: never substance use type: does not use what type of physical activity do you participate in: none tiara/yazidi: Episcopal seatbelt use: always EXAM Physical Exam Narrative Exam Narrative: Well-appearing 76-year-old female no acute distress. Vital signs stable afebrile. H EENT exam no active bleeding. Scabs in both anterior medial nasal septum. Currently no active bleeding or clots. Obviously signs of anterior nosebleed. Posterior pharynx normal no blood. Lungs clear. Heart regular rhythm. Abdomen soft nontender. Moving all 4 extremities. Otherwise exam unremarkable. Const Vital Signs: 02/07/22 09:28 02/07/22 09:32 Temperature 97.3 F L 98.1 F Temperature Source Temporal Temporal Pulse Rate 75 65 Respiratory Rate 16 18 Blood Pressure 170/89 H 156/77 H Blood Pressure Mean 116 103 Pulse Ox 96 94 Oxygen Delivery Method Room Air Room Air Positive well nourished and well developed; Negative for obese, cachectic or contractures General Appearance ED: well developed and NAD; Negative for cachectic, contractures, cyanotic, diaphoretic or pallor Nutritional Appearance: Negative for cachectic or obese HEENT Reports moist mucous membranes; Denies dry mucous membranes HEENT Narrative: Scabs both kiesselbachs plexus on the medial septum proximally. No active bleeding currently. Negative for normocephalic or atraumatic Face and Sinus: Negative for sinus tenderness Mouth ED: No dry mucous membranes Mouth: No dry mucous membranes Teeth and Gingiva: Negative for caries Throat: posterior oropharynx normal; Negative for tonsils abnormal or posterior oropharynx abnormal Eyes PERRL and EOMs intact bilaterally General Eye ED: Negative for pale conjunctiva or scleral icterus Neck no lymphadenopathy, supple, no meningeal signs and no JVD General: Negative for anterior neck swelling or lymphadenopathy Resp normal respiratory effort and clear to auscultation bilaterally Effort and Inspection: Negative for retractions Auscultation: Negative for rales or rhonchi Cardio S1 normal heart sound, S2 normal heart sound and no murmurs Rate: regular rate Rhythm: regular rhythm GI non-tender, non-distended and no masses Inspection: Negative for abdominal distention Auscultation: normoactive bowel sounds Palpation: soft; Negative for tender, guarding or hepatomegaly Back/Spine no CVA tenderness and normal ROM General Back: Negative for CVA tenderness Cervical Spine: Negative for cervical spine tenderness Thoracic Spine / Upper Back: Negative for thoracic spinal tenderness Lumbar Spine / Lower Back: Negative for lumbar spinal tenderness Sacrum: Negative for tenderness Extremity normal to inspection and full ROM General Extremety ED: Negative for cyanosis General Extremity: Negative for cyanosis Neuro oriented x3 and CN's II-XII intact bilaterally Sensorium / Orientation: alert, oriented to person, oriented to place and oriented to time; Negative for orientation impaired, lethargic or stuporous Motor Exam: strength 5/5 throughout Psych mental status grossly normal Appearance: Negative for other Attitude: No agitated Mood Affect: Negative for depressed, anxious or tearful Skin General Skin Exam: Negative for jaundice or pallor Lesions: no lesions Rashes: no rashes Trauma: Negative for abrasion or laceration MDM MDM MDM Narrative Medical decision making narrative: Nosebleeds of bilateral nasal scabs. Patient was instructed not to traumatize her nose. I had planned to place bilateral Merisel packs. These are on backorder. Patient is very small nares did not want balloon packs placed. I do think those are necessary either. We used cotton balls with antibiotic ointment on them. She will remove those in 3 days. She will pull those out in 3 days. She will be placed on antibiotic but she cannot do penicillin due to prior allergy of hives. Once she pulls a pack in 3 days she can either follow-up with ENT or use Vaseline or antibiotic ointment to help moisturize the area and hopefully heal the scabs. Discharge Plan Triage Chief Complaint: Nosebleed ED Provider: Arik Rooney Dx/Rx/DC Orders Clinical Impression: Acute anterior epistaxis, History of ITP, History of chronic kidney disease Instructions: ED Epistaxis (Adult) Prescriptions: New sulfamethoxazole-trimethop rim [Bactrim DS] 800-160 mg tablet 1 tab PO BID 3 Days Qty: 6 0RF No Action prochlorperazine maleate 5 mg tablet 5 - 10 mg PO Q6H PRN (Reason: Stomach Upset) lisinopril 20 mg tablet 20 mg PO BID fenofibrate nanocrystallized [Tricor] 145 mg tablet 145 mg PO DAILY famotidine [Pepcid] 20 mg tablet 20 mg PO DAILY folic acid 400 mcg tablet 0.4 mg PO DAILY albuterol sulfate 90 mcg/actuation HFA aerosol inhaler 2 puff inhalation Q4H PRN (Reason: shortness of breath or wheezing) propranolol 10 mg tablet 20 mg PO BID Qty: 120 4RF Rx Instructions: Take 2 tablets PO BID potassium chloride 10 mEq tablet extended release 10 meq PO QODAY Primary Care Provider: Kristina Brandon Referrals: Indio Zepeda MD [Med Staff - Active Staff] - 3-5 Days Kristina Brandon DO [Primary Care Provider] - As Needed Activity Restrictions/Additional Instructions: Do not pick at the scabs that will cause more bleeding. Pull the cotton balls out 3 to 4 days. Either Tuesday night or Tuesday. Use antibiotic ointment or Vaseline to keep your nose moist once the packing is come out. If it rebleeds hold direct pressure 2030 minutes if unable to stop return. Follow-up with the ENT Drs. Indio Silverio or Vikram Larsen. The antibiotic Bactrim 1 pill twice a day for 3 days till the packing is removed. This will prevent a sinus infection. Disposition Disposition: Home, Self Care What to do if you have Problems For any increased pain, shortness of breath, bleeding, nausea or vomiting, chest pain, or any unexpected problems, contact your Primary Care Provider. Call [facility] ([phone]) or report to the closest Emergency Room. Call 911 if necessary. 02/07/22 1304 <Electronically signed by Arik Rooney MD> Cosigner Signature (if applicable): CC: Dr. Kristina Brandon DO Signed Kristina Brandon DO Work Phone: Start: 01-26-2022 End: 01-26-2022 Neurology Visit Report Procedure Note: See Note; NOTES: [facility] [address] [place] [address], [address] [place] [address] OFFICE VISIT Date of Service: 01/26/22 MR#: [id number] Acct: [id number] Name: BITA THOMPSON Rep #: [id number] : 1945 Provider: Dr. Brandt blackman MD Age/Sex: 76/F Location: [facility]. Status: Signed Intake Vital Signs 01/26/22 15:09 01/26/22 19:15 Height 5 ft 6 in Weight: 158 lb 4 oz BMI 25.5 25.5 BP 132/70 H 132/70 H Blood Pressure Location Lt brachial Position Sitting Respiration 17 Pulse 76 Pulse Source Monitor Temp 98.4 F Temp Source Temporal Pulse Oximetry (%) 98 Oxygen Delivery Method room air Intake Visit Reasons: TRIGGER POINT INJECTIONS Chief Complaint: Trigger Point injection Allergies primidone Allergy (Severe, Verified 01/26/22 15:20) Anaphylaxis montelukast Allergy (Intermediate, Verified 01/26/22 15:20) Other alcohol [From Mastisol Adhesive] Allergy (Unknown, Verified 01/26/22 15:20) Rash beef derived (bovine) Allergy (Unknown, Verified 01/26/22 15:20) Unknown gum mastic [From Mastisol Adhesive] Allergy (Unknown, Verified 01/26/22 15:20) Rash methyl salicylate [From Mastisol Adhesive] Allergy (Unknown, Verified 01/26/22 15:20) Rash mold Allergy (Unknown, Verified 01/26/22 15:20) Difficulty Breathing/Wheezing penicillin V Allergy (Unknown, Verified 01/26/22 15:20) Rash storax [From Mastisol Adhesive] Allergy (Unknown, Verified 01/26/22 15:20) Rash Zzsmveu-OVA-SwW Reductase Inhibitor Allergy (Verified 01/26/22 15:20) NEEDS FOLLOW-UP Beta-Blockers (Beta-Adrenergic Bloc Adverse Reaction (Verified 01/26/22 15:20) Other Medications famotidine 20 mg tablet (Pepcid) 20 mg PO DAILY 04/09/21 [History Confirmed 01/26/22] fenofibrate nanocrystallized 145 mg tablet (Tricor) 145 mg PO DAILY 04/09/21 [History Confirmed 01/26/22] folic acid 400 mcg tablet 0.4 mg PO DAILY 04/09/21 [History Confirmed 01/26/22] lisinopril 20 mg tablet 20 mg PO BID 04/09/21 [History Confirmed 01/26/22] prochlorperazine maleate 5 mg tablet 5 - 10 mg PO Q6H PRN Stomach Upset 04/09/21 [History Confirmed 01/26/22] albuterol sulfate 90 mcg/actuation aerosol inhaler 2 puff inhalation Q4H PRN shortness of breath or wheezing 07/16/21 [History Confirmed 01/26/22] propranolol 10 mg tablet 20 mg PO BID #120 tabs 10/20/21 [Rx Confirmed 01/26/22] potassium chloride 10 mEq tablet,extended release 10 meq PO DAILY 01/07/22 [History Confirmed 01/26/22] PFSH Medical History Anal condyloma Asthma Balance disorder Basal cell carcinoma Benign joint hypermobility Cardiomegaly CKD stage G3b/A1, GFR 30-44 and albumin creatinine ratio <30 mg/g Coarse tremors Constipation COPD (chronic obstructive pulmonary disease) Decreased GFR Depression with anxiety Diarrhea Enchondroma Essential tremor GERD (gastroesophageal reflux disease) History of diverticulitis History of kidney stones Hyperlipemia Hypertension Idiopathic thrombocytopenic purpura (ITP) Impaired fasting glucose LUQ pain Nausea Nocturnal hypoxia CYNTHIA (obstructive sleep apnea) Osteopenia Pancreatic divisum Pneumonia Rectal abnormality Renal cyst Rosacea SOB (shortness of breath) Vitamin D deficiency Surgical History History of bladder surgery History of cataract surgery History of section History of cholecystectomy History of colon surgery History of D C History of hip replacement History of hysterectomy History of kidney surgery History of left hip replacement History of splenectomy Family History Father Cancer Diabetes CVA (cerebral vascular accident) Ulcer Grandfather Cancer Mother Hypertension CVA (cerebral vascular accident) Thyroid disorder Brother Hypertension Sister Hypertension Kidney disease Autoimmune disease Social History Smoking Status: Never smoker Electronic Cigarette Use: not used second hand exposure: No alcohol intake: never substance use type: does not use what type of physical activity do you participate in: none tiara/yazidi: Episcopal seatbelt use: always HPI HPI Chief Complaint: Trigger Point injection Office Procedures Neuro Injections Sites 1-2 Sites Details:: The patient presents with complaints of worsened left upper back pain and wishes to receive another trigger point injection. Her pain in this region has been prominent for the past month. Informed consent was obtained. Physical exam: Neuro: The patient is awake and alert and responds appropriately Back: Point tenderness is noted over the medial upper left trapezius muscle Procedure: The injection site was prepped with an alcohol swab. Methylprednisolone 40 mg IM and bupivacaine 0.75% 5 mL IM was administered in the left upper medial trapezius muscle. The injection site was bandaged. The patient tolerated the procedure well. There were no complications. Office Meds methylprednisolone acetate Performing Provider: Brandt Dang MD Documented (not given) by: Estephania Ledesma on 01/26/22 16:07 Reason Not Given: Wrong order entered methylprednisolone acetate Performing Provider: Brandt Dang MD Administered by: Brandt Dang MD on 01/26/22 19:15 Dose Route Admin Location Lot Number Expiration Date NDC Manufactu rer 40 mg IM Left upper trapezius [id number] 03/31/23 82783-286-44 [facility]. Coding Level of Care Code Attention Qian Diagnoses Myalgia M79.10 Dorsalgia M54.9 CPT Codes Sites - Injection: 1-2 Sites (84456) Assessment and Plan Assessment and Plan (1) Myalgia: Status: Chronic (2) Dorsalgia: Status: Chronic Orders: Orders Methylprednisolone 40mg Today M79.18 - Myalgia, other site Methylprednisolone 40mg Today M79.10 - Myalgia, unspecified site 01/26/221925 <Electronically signed by Brandt Dang MD> Date Brandt Dang MD Cosigner Signature: Date (if applicable) CC: Kristina Brandon DO Work Phone: Start: 12-01-2021 Diagnostic radi[address] of abdomen Dr. Kristina Brandon Work Phone: Start: 12-01-2021 End: 12-01-2021 Acute Abdomen Inc Chest Procedure Note: See Note; NOTES: [facility] [address] [place] [address] Acute Abdomen Inc Chest MR#: [id number] Acct: [id number] Name: BITA THOMPSON Rep #: [id number] : 1945 F 76 From: Francesco Fagan MD PCP: Dr. Kristina Brandon DO Status: DEP AMB Study: Acute Abdomen Inc Chest Date of Exam: 12/01/21 Exam# [id number] Ordering Dr: Kristina Brandon DO STUDY: X-RAY - ACUTE ABDOMINAL SERIES REASON FOR EXAM: Female, 76 years old. LUQ pain TECHNIQUE: Single view of the chest. Supine, and erect view(s) of the abdomen were obtained. COMPARISON: None. FINDINGS: The lungs are clear and expanded. Normal size heart. Normal mediastinum and ge. Normal visualized pulmonary arteries. Normal visualized aortic arch and descending thoracic aorta. There is an abundance of fecal material throughout the colon. The soft tissue structures of the abdomen and pelvis are unremarkable. Degenerative bony changes noted. Hardware in the lower lumbar spine and left hip free of complication RAD/Acute Abdomen Inc Chest IMPRESSION: No acute findings, retained stool Electronically Signed: Davion Fagan MD at 10:47 EDT , CC: Dr. Kristina Brandon DO Licensed Club Manager: Signed Kristina Brandon DO Work Phone: Start: 11-03-2021 End: 11-04-2021 Dexa Bone Density Study Procedure Note: See Note; NOTES: [facility] Imaging [address] [address] Dexa Bone Density Study MR#: [id number] Acct: [id number] Name: BITA THOMPSON Rep #: [id number] : 1945 F 76 From: Hemant varma MD PCP: Dr. Kristina Brandon DO Status: [facility] CLI Study: Dexa Bone Density Study Date of Exam: 11/03/21 Exam# [id number] Ordering Dr: Kristina Brandon DO STUDY: DUAL ENERGY X-RAY ABSORPTIOMETRY / DXA REASON FOR EXAM: Female, 76 years old. [id number] TECHNIQUE: Bone Mineral Density (BMD) measurements of lumbar spine and right hip were obtained. COMPARISON: None. FINDINGS: Lumbar Spine (L1-L4): g/cm2 (0.951) / T-score (-0.3) / Z-score (2.1) Findings are suggestive of normal bone density with a low fracture risk. Right Femur Total: g/cm2 (0.819) / T-score (-1.0) / Z-score (0.8) Right Femoral Neck: g/cm2 (0.641) / T-score (-1.9) / Z-score (0.3) BD/Dexa Bone Density Study IMPRESSION: The patient is considered osteopenic as outlined below according to World [employer] Organization (WHO) criteria with a moderate fracture risk. Reference Information: The T-score is the number of standard deviations above or below the standard which is normal for young adults at their peak bone mineral density. The World Health Organization (WHO) interprets the T-scores as follows: Above -1 Normal bone density Between -1 and -2.5 Osteopenia Equal to / or below -2.5 Osteoporosis As a practical clinical guideline, osteopenia may be graded as follows: Mild -1 through -1.5 Moderate -1.6 through -2.0 Severe -2.1 through -2.4 The Z-score is the number of standard deviations above or below age-matched controls. A Z-score of less than -1.5 would be considered abnormal. References: 1. NIH Osteoporosis and Related Bone Diseases www osteo.org 2. International Society for Clinical Densitometry www iscd.org 3. National Osteoporosis Foundation www nof.org Electronically Signed: Hemant Meneses MD at 14:53 EDT , CC: Dr. Kristina Brandon DO Licensed Club Manager: Signed Kristina Brandon DO Work Phone: Start: 11-03-2021 Dual energy X-ray absorptiometry Dr. Brandt Dang Work Phone: Start: 11-03-[address] Brandt lnicoln Work Phone: Start: 11-03-2021 End: 11-04-2021 SCRN MAMM (CAD)W/STEFFI BILAT Procedure Note: See Note; NOTES: [facility] Imaging Services [address] [place] [address] SCRN MAMM (CAD)W/STEFFI BILAT MR#: [id number] Acct: [id number] Name: BITA THOMPSON Rep #: [id number] : 1945 F 76 From: Hemant varma MD PCP: Dr. Kristina Brandon, Status: REG CLI Study: SCRN MAMM (CAD)W/STEFFI BILAT Date of Exam: 08/19 Exam# [id number] Ordering Dr: Kristina Brandon DO MAMMOGRAPHY - BILATERAL SCREENING REASON FOR EXAM: Female, 76 years old. Routine annual screening examination. PERTINENT HISTORY: Non-contributory. TECHNIQUE: Digital bilateral breast steffi (3D mammographic acquisition) in the CC and MLO projections. 2-D mediolateral oblique (MLO) and craniocaudad (CC) views of both breasts were obtained. CAD: Full Field Digital Mammography with Computer Added Detection was performed. COMPARISON: Comparison is made with prior study dated 07/31/2020. FINDINGS: Breast Composition: The breasts are heterogeneously dense, which may obscure small masses. There are no dominant masses or suspicious calcifications. Stable small benign-appearing bilateral axillary lymph nodes. No other significant abnormalities are identified. There has been no significant change since the prior study. BI/SCRN MAMM (CAD)W/STEFFI BILAT IMPRESSION: Stable bilateral screening mammogram. Yearly follow-up mammogram recommended. (A) ASSESSMENT CATEGORY: BIRADS Category 2: Benign. A letter regarding these results will be sent to the patient by the facility within 30 days. Approximately 10% of breast cancers are not detected by mammography. A normal mammogram should not delay biopsy of a clinically suspicious abnormality. [id number] Electronically Signed: Hemant Meneses MD at 9:26 EDT Reading Location ID and State: [facility] / [place] , Service support , CC: Dr. Kristina Brandon DO Licensed Club Manager: Signed Kristina Brandon DO Work Phone: Start: 10-20-2021 End: 10-20-2021 Neurology Visit Report Procedure Note: See Note; NOTES: [facility] [address] [place] [address], [address] [place] [address] OFFICE VISIT Date of Service: 10/20/21 MR#: [id number] Acct: [id number] Name: RENEBITA Rep #: [id number] : 1945 Provider: Dr. Brandt blackman MD Age/Sex: 76/F Location: [facility] Status: Signed Intake Vital Signs 07/16/21 14:14 09/21/21 22:09 10/20/21 11:10 Height 5 ft 6.5 in 5 ft 6 in 5 ft 6 in Weight: 154 lb 2 oz BMI 24.8 BP 160/80 H Blood Pressure Location Lt brachial Position Sitting Respiration 16 Pulse 70 Pulse Source Monitor Temp 99.6 F H Temp Source Temporal Pulse Oximetry (%) 98 Oxygen Delivery Method simple mask Intake Visit Reasons: 3 M FU Director Of Cardiology Required: No Accompanied by: Is patient in pain?: Yes (neck) Pain scale (1-10): 3 Allergies primidone Allergy (Severe, Verified 10/20/21 10:03) Anaphylaxis alcohol [From Mastisol Adhesive] Allergy (Unknown, Verified 10/20/21 10:03) Rash beef derived (bovine) Allergy (Unknown, Verified 10/20/21 10:03) Unknown gum mastic [From Mastisol Adhesive] Allergy (Unknown, Verified 10/20/21 10:03) Rash methyl salicylate [From Mastisol Adhesive] Allergy (Unknown, Verified 10/20/21 10:03) Rash mold Allergy (Unknown, Verified 10/20/21 10:03) Difficulty Breathing/Wheezing penicillin V Allergy (Unknown, Verified 10/20/21 10:03) Rash storax [From Mastisol Adhesive] Allergy (Unknown, Verified 10/20/21 10:03) Rash Statins Support Allergy (Unknown, Uncoded 10/20/21 10:03) Unknown Betachron Adverse Reaction (Unknown, Uncoded 10/20/21 10:03) Spikes in BP Medications famotidine 20 mg tablet (Pepcid) 20 mg PO DAILY 04/09/21 [History Confirmed 10/20/21] fenofibrate nanocrystallized 145 mg tablet (Tricor) 145 mg PO DAILY 04/09/21 [History Confirmed 10/20/21] folic acid 400 mcg tablet 0.4 mg PO DAILY 04/09/21 [History Confirmed 10/20/21] lisinopril 20 mg tablet 20 mg PO BID 04/09/21 [History Confirmed 10/20/21] prochlorperazine maleate 5 mg tablet 5 - 10 mg PO Q6H PRN Stomach Upset 04/09/21 [History Confirmed 10/20/21] albuterol sulfate 90 mcg/actuation aerosol inhaler 2 puff inhalation Q4H PRN shortness of breath or wheezing 07/16/21 [History Confirmed 10/20/21] propranolol 10 mg tablet 20 mg PO BID #120 tabs 10/20/21 [Rx Confirmed 10/20/21] PFSH Medical History Anal condyloma Asthma Balance disorder Basal cell carcinoma Benign joint hypermobility CKD stage G3b/A1, GFR 30-44 and albumin creatinine ratio <30 mg/g Coarse tremors Decreased GFR Depression with anxiety Enchondroma Essential tremor GERD (gastroesophageal reflux disease) History of diverticulitis History of kidney stones Hyperlipemia Hypertension Idiopathic thrombocytopenic purpura (ITP) Impaired fasting glucose Nausea Nocturnal hypoxia CYNTHIA (obstructive sleep apnea) Osteopenia Pancreatic divisum Pneumonia Rectal abnormality Renal cyst Rosacea Vitamin D deficiency Surgical History History of bladder surgery History of cataract surgery History of section History of cholecystectomy History of colon surgery History of D C History of hip replacement History of hysterectomy History of kidney surgery History of left hip replacement History of splenectomy Family History Father Cancer Diabetes CVA (cerebral vascular accident) Ulcer Grandfather Cancer Mother Hypertension CVA (cerebral vascular accident) Thyroid disorder Brother Hypertension Sister Hypertension Kidney disease Autoimmune disease Social History (Updated 10/20/21 @ 10:06 by Estephania Ledesma) Smoking Status: Never smoker Electronic Cigarette Use: not used second hand exposure: No alcohol intake: never substance use type: does not use what type of physical activity do you participate in: none tiara/yazidi: Episcopal seatbelt use: always HPI HPI Details: Interim History: The patient returns for follow-up visit. She has a history of hypertension, hyperlipidemia, obstructive sleep apnea on CPAP, COPD, basal cell skin cancer status post excision, stage III renal insufficiency, prior history of idiopathic thrombocytopenic purpura (status post splenectomy in 1969) and essential tremor. She has been experiencing a tremor since she was a teenager and this worsened during adulthood. Her tremor interferes with activities including handwriting and using cooking utensils. The tremor affects both hands and is increased with action and when she is tired or anxious. She also has a head tremor. Increasing her dose of propranolol to 10 mg twice daily has been of modest benefit for her tremor and has been well-tolerated. Primidone 50 mg daily tried in years past was not of benefit and caused sedation. She has had nystagmus noted on examination since childhood. Since around 2006, she has had gait imbalance. She has had physical therapy multiple times in the past. She has had low back pain and has bilateral hip pain and a feeling of stiffness in the hips. She had a fall in 2015 and sustained lumbar compression fracture(s) and underwent lumbar surgery at the L3-4-5 levels in 2015. This was of benefit for her low back pain subsided. She denied having any radicular pain in the lower extremities. She had a fall in 2020 and sustained a left hip fracture for which she underwent a partial hip replacement. She has had neck pain since her fall in the spring 2020 and this radiates to the left shoulder. A left cervical paraspinal/upper trapezius muscle trigger point injection given in August 2021 was of modest benefit. Acetaminophen has been of benefit for her musculoskeletal pain. She denied having weakness. She reported that the cause of her nystagmus is unknown. She has chronic anxiety. She denied having depression. Records indicate that a trial of Trokendi caused sedation. She was hospitalized in August 2021 for urinary tract infection with acute renal insufficiency superimposed on chronic renal insufficiency. Physical Exam: Neuro: The patient is awake and alert and responds appropriately; speech is fluent; no rigidity is noted in the wrists; a mild tremor is noted in the hands when arms are extended; her gait is mildly unsteady; she is able to ambulate independently Heart: regular rate and rhythm Supplemental Info CBC, CMP (03/18/2021): BUN 38, creatinine 1.37, EGFR 40, glucose 125. TSH, creatinine (04/09/21): creatinine 1.61, eGFR 33 Head MRI (04/23/21): FINDINGS: BRAIN AND EXTRA-AXIAL SPACES: T2 FLAIR hyperintensity foci in the white matter of both cerebral hemispheres are nonenhancing and have no mass effects. These are chronic white matter ischemic changes. No enhancing lesions intraaxially and extra-axially. No remote cortical based ischemic infarcts. No midline shift and no mass effects. Normal ventricles and cisterns. No intra- or extra-axial hemorrhage. Posterior fossa structures are unremarkable. SELLA: Unremarkable. Normal sella turcica, pituitary gland, infundibular stalk, optic chiasm and hypothalamus. AUDITORY SYSTEM: Unremarkable. The internal auditory canals are patent. BONES/JOINTS: Unremarkable. No discrete lytic or blastic abnormalities. SINUSES: Unremarkable as visualized. Clear. MASTOID AIR CELLS: Unremarkable as visualized. Clear. ORBITS: Unremarkable as visualized. Both globes, extraocular muscles, optic nerves and retrobulbar fat appear unremarkable. VASCULATURE: Unremarkable as visualized. Normal flow voids in the major intracranial circulation. IMPRESSION: 1. No MRI evidence of acute or subacute ischemic infarct or remote cortical based ischemic infarct. 2. No MRI evidence of intracranial mass. 3. Chronic white matter ischemic changes in both cerebral hemispheres. 4. No abnormal enhancing lesions intraaxially and extra-axially. Cervical MRI (04/23/21): FINDINGS: Normal foramen magnum and brainstem-cervical cord junction. Normal craniovertebral junction. Normal anterior atlantoaxial articulation. Normal odontoid process. Normal cervical lordosis. Normal vertebral bodies and posterior osseous elements. C2-3: Normal endplates. Normal disc height, signal and morphology. Normal central canal and intervertebral neural foramina. C3-4: Normal endplates. Normal disc height. Minimal degenerative anterolisthesis of C3 on C4. Normal central canal and intervertebral neural foramina. C4-5: Normal endplates. Mild disc space height narrowing. Mild degenerative anterolisthesis of C4 on C5. Normal central canal and left intervertebral neural foramen. Moderately pronounced stenosis of the right intervertebral neural foramen. C5-6: MODIC type I degenerative vertebral marrow edema underneath the vertebral endplates. Moderate disc space height narrowing. Anterior and posterior marginal spurs. Normal central canal. Moderately pronounced stenosis of the intervertebral neural foramina. C6-7: Anterior posterior marginal spurs. Normal endplates. Moderate disc space height narrowing. Normal central canal and intervertebral neural foramina. C7-T1: Normal endplates. Normal disc height. Mild degenerative anterolisthesis of C7 on T1. Normal intervertebral neural foramina. Perineural cyst in the right intervertebral neural foramen. T1-T2: (Sagittal only). Normal endplates. Normal disc height. Minimal ventral extradural defect due to small posterior bulging annulus. Normal central canal and intervertebral neural foramina. T2-3: (Sagittal only). Normal endplates. Normal disc height. Minimal ventral extra dural defect due to small posterior bulging annulus. Normal central canal and intervertebral neural foramina. T3-T4: (Sagittal only). Normal endplates. Minimal disc space height narrowing. Mild degenerative anterolisthesis of T3 on T4. Normal central canal and intervertebral neural foramina. T4-T5 and T5-T6: (Sagittal only). Normal endplates. Normal disc height and morphology. Normal central canal and intervertebral neural foramina. Normal cervical cord. Normal upper thoracic spinal cord. Normal included portions of the brainstem and cerebellum. Normal visualized soft tissue structures. IMPRESSION: 1. No MRI evidence of cervical extruded disc fragment. 2. Minimal degenerative anterolisthesis of C3 on C4. 3. Minimal degenerative anterolisthesis of C4 on C5 and moderately pronounced stenosis of the right intervertebral neural foramen. 4. Mild C5-C6 intervertebral osteochondritis (MODIC type I) and moderately pronounced stenosis of the intervertebral neural foramina. 5. Mild degenerative anterolisthesis of C7 on T1 and T3 on T4. 6. Normal cervical spinal cord. CBC, BMP, vitamin D, PTH intact (10/14/2021): BUN 34, creatinine 1.4, EGFR 39 Coding Level of Care Code Off vis,est,level 4 Diagnoses Essential tremor G25.0 Abnormality of gait and mobility R26.9 Neck pain M54.2 Assessment and Plan Assessment and Plan (1) Essential tremor: Status: Chronic (2) Abnormality of gait and mobility: Status: Chronic (3) Neck pain: Status: Chronic Medications: Changed From propranolol 10 mg PO BID 60 tabs 3RF To propranolol Take 2 tablets PO BID 20 mg (2 x 10 mg) PO BID 120 tabs 4RF Plan Details Additional Comments: The patient has an essential tremor. Her tremor has caused functional impairment. Though improved with the use of propranolol, her tremor is, at times, prominent. Prior use of low-dose primidone was not of benefit and caused sedation. Anxiety worsens her tremor. - Propranolol 10 mg will be increased to 2 tablets BID. - If propranolol shout be suboptimally effective then initiation of a medication for anxiety may possibly be helpful for her tremor and this will be considered in the future. She has had gait imbalance for years. She has exhibited a wide-based unsteady gait. No motor strength or sensory deficits or rigidity were noted on exam. She exhibited rotatory nystagmus on rightward and leftward gaze and she reported that nystagmus has been present since childhood (the cause of her nystagmus is unknown). She denied having dizziness or lightheadedness. Chronic small vessel ischemic disease is reported on her head MRI. Over the years, she has had multiple courses of physical therapy for her gait disorder. Structural lumbar and hip conditions may be causing mechanical issues contributing to her gait imbalance. She has had chronic neck pain since a fall in early 2020; she also had a hip fracture with this fall and underwent a partial hip replacement. She has had low back pain and had lumbar surgery in the past for lumbar vertebral fracture(s). A cervical MRI reveals multilevel degenerative joint disease. Due to chronic renal insufficiency, prescription NSAIDs will not be prescribed. A left lower cervical/medial upper trapezius muscle trigger point injection administered in August 2020 was of moderate benefit. - If she should have worsening neck pain she may return for further trigger point injections. I will have her return for reassessment in 3 months. 10/20/21 1443 <Electronically signed by Brandt Dang MD> Date Brandt Dang MD Cosigner Signature: Date (if applicable) CC: Kristina Brandon DO Work Phone: Start: 09-21-2021 End: 09-21-2021 History and Physical Exam Comments: See Note; NOTES: [facility] Medical Records Department [address] [place] [address] History Physical Exam 09/21/212016 MR#: [id number] Acct: [id number] Name: BITA THOMPSON Rep #: [id number] : 1945 75 From: Cuate Nicole MD PCP: Dr. Kristina Brandon, DO Status:REG ER Location: ED HPI - General General Date of Admission: 09/21/21 Date of Service: 09/21/21 Chief Complaint: UTI and acute kidney injury HPI Narrative BITA THOMPSON, is a 75 F who presents to the emergency room with chief complaint of feeling nauseated and dizzy. Patient had been treated as an outpatient for UTI with Keflex but was subsequently changed to Bactrim due to sensitivity data that was received on the infection. Patient has then developed side effects of feeling dizzy with the new medication and came to the emergency room for evaluation. She is now stable and feeling better however it was noticed that she had an increase in her creatinine to 2.4. She will be admitted for observation overnight for IV hydration and management of her acute kidney injury and continued on IV antibiotics to cover her UTI. [facility] Medical History Anal condyloma Balance disorder Basal cell carcinoma Benign joint hypermobility CKD stage G3b/A1, GFR 30-44 and albumin creatinine ratio <30 mg/g Coarse tremors Decreased GFR Depression with anxiety Enchondroma Essential tremor GERD (gastroesophageal reflux disease) History of diverticulitis History of kidney stones Hyperlipemia Hypertension Idiopathic thrombocytopenic purpura (ITP) Impaired fasting glucose Nausea Nocturnal hypoxia CYNTHIA (obstructive sleep apnea) Osteopenia Pancreatic divisum Pneumonia Rectal abnormality Renal cyst Rosacea Vitamin D deficiency Home Medications doxycycline monohydrate 40 mg capsule,immediate - delay release 40 mg PO DAILY 04/09/21 [History Last Taken Unknown] famotidine 20 mg tablet (Pepcid) 20 mg PO DAILY 04/09/21 [History Last Taken Unknown] fenofibrate nanocrystallized 145 mg tablet (Tricor) 145 mg PO DAILY 04/09/21 [History Last Taken Unknown] folic acid 400 mcg tablet 0.4 mg PO DAILY 04/09/21 [History Last Taken Unknown] lisinopril 20 mg tablet 20 mg PO BID 04/09/21 [History Last Taken Unknown] prochlorperazine maleate 5 mg tablet 5 - 10 mg PO Q6H PRN Stomach Upset 04/09/21 [History Last Taken Unknown] albuterol sulfate 90 mcg/actuation aerosol inhaler 2 puff inhalation Q4H PRN shortness of breath or wheezing 07/16/21 [History Last Taken Unknown] propranolol 10 mg tablet 10 mg PO BID #60 tabs 07/16/21 [Rx Last Taken Unknown] sulfamethoxazole 800 mg-trimethoprim 160 mg tablet 1 tab PO BID 09/21/21 [History Last Taken Unknown] Allergy/AdvReac Type Severity Reaction Status Date / Time primidone Allergy Severe Anaphylaxis Verified 09/15/21 10:11 alcohol Allergy Unknown Rash Verified 09/15/21 10:11 [From Mastisol Adhesive] beef derived (bovine) Allergy Unknown Unknown Verified 09/15/21 10:11 gum mastic Allergy Unknown Rash Verified 09/15/21 10:11 [From Mastisol Adhesive] methyl salicylate Allergy Unknown Rash Verified 09/15/21 10:11 [From Mastisol Adhesive] mold Allergy Unknown Difficulty Verified 09/15/21 10:11 Breathing/Wheezing penicillin V Allergy Unknown Rash Verified 09/15/21 10:11 storax Allergy Unknown Rash Verified 09/15/21 10:11 [From Mastisol Adhesive] Statins Support Allergy Unknown Unknown Uncoded 08/27/21 14:22 Betachron AdvReac Unknown Spikes in Uncoded 08/27/21 14:22 BP Family History Father Cancer Diabetes CVA (cerebral vascular accident) Ulcer Grandfather Cancer Mother Hypertension CVA (cerebral vascular accident) Thyroid disorder Brother Hypertension Sister Hypertension Kidney disease Autoimmune disease Surgical History History of bladder surgery History of cataract surgery History of section History of cholecystectomy History of colon surgery History of D C History of hip replacement History of hysterectomy History of kidney surgery History of left hip replacement History of splenectomy Social History Smoking Status: Never smoker Electronic Cigarette Use: not used second hand exposure: No alcohol intake: never substance use type: does not use ROS Constitutional Constitutional: Denies chills or fever(s) Eyes Eyes: Denies change in vision ENT HEENT: Denies abnormal hearing Cardiovascular Cardiovascular: Denies chest pain Respiratory/Chest Respiratory/Chest: Denies shortness of breath at rest Gastrointestinal Gastrointestinal: Denies abdominal pain Genitourinary Genitourinary: Denies dysuria Musculoskeletal Musculoskeletal: Denies back pain Neurologic Neurologic: Denies abnormal speech Psychiatric Psychiatric: Denies anxiety Vital Signs Vital Signs Vital Signs: 09/21/21 17:57 Temperature 97.9 F Temperature Source Temporal Pulse Rate 71 Respiratory Rate 16 Blood Pressure 174/82 H Blood Pressure Mean 112 Pulse Ox 97 Oxygen Delivery Method Room Air Weight Weight: 147 lb Body Mass Index (BMI) 23.7 Physical Exam Const oriented x3 HEENT normocephalic and head/scalp atraumatic Eyes PERRL Neck no lymphadenopathy Resp normal respiratory effort and normal air movement Cardio regular rate, regular rhythm, S1 normal heart sound and S2 normal heart sound GI normal to inspection, nondistended, normoactive bowel sounds Extremity normal capillary refill Skin General Skin Exam: no breakdown Neuro no focal motor deficits and no sensory deficits noted Psych thought process normal Results Lab / Micro Data Result Diagrams: 09/21/21 18:49 09/21/21 18:49 Labs: Laboratory Results - last 24 hr 09/21/21 18:49: WBC 9.9, RBC 4.51, Hgb 13.9, Hct 41.9, MCV 92.9, MCH 30.8, MCHC 33.2, RDW Std Deviation 51.0 H, RDW Coeff of Zachariah 14.9 H, Plt Count 319, MPV 11.8, Immature Gran % (Auto) 0.400, Neut % (Auto) 66.2, Lymph % (Auto) 21.5, Cloud % (Auto) 10.5 H, Eos % (Auto) 1.1, Baso % (Auto) 0.3, Absolute Neuts (auto) 6.5, Absolute Lymphs (auto) 2.12, Nucleated RBC % 0 09/21/21 18:49: Sodium 134 L, Potassium 4.5, Chloride 104, Carbon Dioxide 25.0, Anion Gap 5, BUN 65 H, Creatinine 2.48 H, Estim Creat Clear Calc 18.35, Est GFR (MDRD) Af Amer 24 L, Est GFR (MDRD) Non- Af 20 L, BUN/Creatinine Ratio 26.2 H, Glucose 99, Calcium 9.5 Assessment Plan Assessment/Plan (1) UTI (urinary tract infection): (2) Acute kidney injury: PLAN: Plan 1. Acute kidney injury???admit patient to medical surgical floor for observation, start normal saline IV at 125 cc/h, repeat BMP in the morning 2. Urinary tract infection???1 g IV Rocephin every 24 hours 3. DVT prophylaxis???SCDs due to renal function changes Charges/Coding Visit Charges OBSV E M: 67347 Initial observation care L2 09/21/212021 <Electronically signed by Cuate Nicole MD> Cosigner Signature (if applicable): CC: Dr. Kristina Brandon DO; Dr. Cuate Nicole MD Signed Kristina Brandon DO Work Phone: Start: 09-21-2021 End: 09-21-2021 Emergency Department Summary Comments: See Note; NOTES: [facility] Medical Records Department [address] [place] [id number] Emergency Department Summary 09/21/21 MR#: [id number] Acct: [id number] Name: BITA THOMPSON Rep #: [id number] : 1945 75 From: Jeancarlos Hopkins MD PCP: Dr. Kristina Brandon DO Status:REG ER Location: ED HPI History of Present Illness Chief Complaint: Complaint Informant: patient Onset/Context/Timing Onset: Days Location: bladder Current Severity: Mild Worsened by: none Relieved by: none Narrative Narrative: Patient was diagnosed with a UTI. She had cultures that showed resistance to sulfa and she was started on Keflex. She said that the Keflex did not agree with her and she was concerned for allergic reaction. She has no dyspnea, rash, GI symptoms, or UNIFORM ROOM ATTENDANT symptoms. No fevers or systemic symptoms currently. Her PCP told her to come to the ED to get on a different antibiotic. They said they were going to fax the culture results. Recent Illness/Hospitalization: Yes PFSH [facility] Medical History Anal condyloma Balance disorder Basal cell carcinoma Benign joint hypermobility CKD stage G3b/A1, GFR 30-44 and albumin creatinine ratio <30 mg/g Coarse tremors Decreased GFR Depression with anxiety Enchondroma Essential tremor GERD (gastroesophageal reflux disease) History of diverticulitis History of kidney stones Hyperlipemia Hypertension Idiopathic thrombocytopenic purpura (ITP) Impaired fasting glucose Nausea Nocturnal hypoxia CYNTHIA (obstructive sleep apnea) Osteopenia Pancreatic divisum Pneumonia Rectal abnormality Renal cyst Rosacea Vitamin D deficiency Home Medications doxycycline monohydrate 40 mg capsule,immediate - delay release 40 mg PO DAILY 04/09/21 [History Last Taken Unknown] famotidine 20 mg tablet (Pepcid) 20 mg PO DAILY 04/09/21 [History Last Taken Unknown] fenofibrate nanocrystallized 145 mg tablet (Tricor) 145 mg PO DAILY 04/09/21 [History Last Taken Unknown] folic acid 400 mcg tablet 0.4 mg PO DAILY 04/09/21 [History Last Taken Unknown] lisinopril 20 mg tablet 20 mg PO BID 04/09/21 [History Last Taken Unknown] prochlorperazine maleate 5 mg tablet 5 - 10 mg PO Q6H PRN Stomach Upset 04/09/21 [History Last Taken Unknown] albuterol sulfate 90 mcg/actuation aerosol inhaler 2 puff inhalation Q4H PRN shortness of breath or wheezing 07/16/21 [History Last Taken Unknown] propranolol 10 mg tablet 10 mg PO BID #60 tabs 07/16/21 [Rx Last Taken Unknown] sulfamethoxazole 800 mg-trimethoprim 160 mg tablet 1 tab PO BID 09/21/21 [History Last Taken Unknown] Allergy/AdvReac Type Severity Reaction Status Date / Time primidone Allergy Severe Anaphylaxis Verified 09/15/21 10:11 alcohol Allergy Unknown Rash Verified 09/15/21 10:11 [From Mastisol Adhesive] beef derived (bovine) Allergy Unknown Unknown Verified 09/15/21 10:11 gum mastic Allergy Unknown Rash Verified 09/15/21 10:11 [From Mastisol Adhesive] methyl salicylate Allergy Unknown Rash Verified 09/15/21 10:11 [From Mastisol Adhesive] mold Allergy Unknown Difficulty Verified 09/15/21 10:11 Breathing/Wheezing penicillin V Allergy Unknown Rash Verified 09/15/21 10:11 storax Allergy Unknown Rash Verified 09/15/21 10:11 [From Mastisol Adhesive] Statins Support Allergy Unknown Unknown Uncoded 08/27/21 14:22 Betachron AdvReac Unknown Spikes in Uncoded 08/27/21 14:22 BP Family History Father Cancer Diabetes CVA (cerebral vascular accident) Ulcer Grandfather Cancer Mother Hypertension CVA (cerebral vascular accident) Thyroid disorder Brother Hypertension Sister Hypertension Kidney disease Autoimmune disease Surgical History History of bladder surgery History of cataract surgery History of section History of cholecystectomy History of colon surgery History of D C History of hip replacement History of hysterectomy History of kidney surgery History of left hip replacement History of splenectomy Social History Smoking Status: Never smoker Electronic Cigarette Use: not used second hand exposure: No alcohol intake: never substance use type: does not use ROS ROS ED Constitutional Constitutional ED: Denies chills or fever(s) Eyes Eyes: Denies blurry vision ENT ENT ED: Denies ear pain Cardiovascular Cardiovascular: Denies chest pain Respiratory/Chest Respiratory/Chest: Denies cough Gastrointestinal Gastrointestinal: Denies abdominal pain Genitourinary Genitourinary ED: Denies dysuria Musculoskeletal Musculoskeletal: Denies arthralgias Integumentary Denies abscess Neurologic Neurologic: Denies headache(s) Psychiatric Psychiatric: Denies anxiety Endocrine Endocrinology: Denies cold intolerance Hematologic/Lymphatic Hematologic/Lymphatic: Denies systems reviewed and no addt'l complaints, except as documented Allergic/Immunologic Allergic/Immunologic ED: Denies mouth swelling EXAM Physical Exam Const Vital Signs: 09/21/21 17:57 Temperature 97.9 F Temperature Source Temporal Pulse Rate 71 Respiratory Rate 16 Blood Pressure 174/82 H Blood Pressure Mean 112 Pulse Ox 97 Oxygen Delivery Method Room Air Positive well nourished and well developed General Appearance ED: well developed HEENT Reports moist mucous membranes Eyes EOMs intact bilaterally Resp normal respiratory effort and clear to auscultation bilaterally Cardio regular rate and regular rhythm GI normal to inspection, nondistended, normoactive bowel sounds, non-tender and non-distended Back/Spine no CVA tenderness Extremity normal to inspection Neuro oriented x3 Sensorium / Orientation: alert Psych mental status grossly normal Skin no rashes or lesions noted MDM MDM MDM Narrative Medical decision making narrative: Patient's cultures were obtained. She was sensitive to cephalosporins. I discussed her case with Dr. Sainz who advised Omnicef. Unfortunately, the patient's creatinine was elevated meeting criteria for acute kidney injury. She is not septic or showing any other complications. She was discussed with the hospitalist and will be admitted. She was treated with Rocephin and IV fluids. Impression #1 UTI Impression #2 CAMERON Lab Data Attestation: I reviewed the patient's lab results. Labs: Laboratory Results - last 24 hr 09/21/21 09/21/21 18:49 18:49 WBC 9.9 RBC 4.51 Hgb 13.9 Hct 41.9 MCV 92.9 MCH 30.8 MCHC 33.2 RDW Std Deviation 51.0 H RDW Coeff of Zachariah 14.9 H Plt Count 319 MPV 11.8 Immature Gran % (Auto) 0.400 Neut % (Auto) 66.2 Lymph % (Auto) 21.5 Cloud % (Auto) 10.5 H Eos % (Auto) 1.1 Baso % (Auto) 0.3 Absolute Neuts (auto) 6.5 Absolute Lymphs (auto) 2.12 Nucleated RBC % 0 Sodium 134 L Potassium 4.5 Chloride 104 Carbon Dioxide 25.0 Anion Gap 5 BUN 65 H Creatinine 2.48 H Estim Creat Clear Calc 18.35 Est GFR (MDRD) Af Amer 24 L Est GFR (MDRD) Non-Af 20 L BUN/Creatinine Ratio 26.2 H Glucose 99 Calcium 9.5 Discharge Plan Triage Chief Complaint: Complaint ED Provider: Jeancarlos Hopkins Dx/Rx/DC Orders Prescriptions: No Action doxycycline monohydrate 40 mg capsule,IR - delay rel,biphase 40 mg PO DAILY prochlorperazine maleate 5 mg tablet 5 - 10 mg PO Q6H PRN (Reason: Stomach Upset) lisinopril 20 mg tablet 20 mg PO BID fenofibrate nanocrystallized [Tricor] 145 mg tablet 145 mg PO DAILY famotidine [Pepcid] 20 mg tablet 20 mg PO DAILY folic acid 400 mcg tablet 0.4 mg PO DAILY albuterol sulfate 90 mcg/actuation HFA aerosol inhaler 2 puff inhalation Q4H PRN (Reason: shortness of breath or wheezing) propranolol 10 mg tablet 10 mg PO BID Qty: 60 3RF sulfamethoxazole-trimethop rim 800-160 mg tablet 1 tab PO BID Label Comments: take 1 tablet by mouth twice a day Primary Care Provider: Kristina Brandon Referrals: Kristina Brandon, DO [Primary Care Provider] - What to do if you have Problems For any increased pain, shortness of breath, bleeding, nausea or vomiting, chest pain, or any unexpected problems, contact your Primary Care Provider. Call [facility] ([phone]) or report to the closest Emergency Room. Call 911 if necessary. 09/21/212013 <Electronically signed by Jeancarlos Hopkins MD> Cosigner Signature (if applicable): CC: Dr. Kristina Brandon, DO Signed Kristina Brandon DO Work Phone: Start: 09-15-2021 End: 09-15-2021 Neurology Visit Report Comments: See Note; NOTES: [facility] [address] [place] [address] OFFICE VISIT Date of Service: 09/15/21 MR#: [id number] Acct: [id number] Name: BITA THOMPSON Rep #: [id number] : 1945 Provider: Dr. Brandt blackman MD Age/Sex: 75/F Location: [facility]. Status: Signed Intake Vital Signs 08/27/21 15:49 09/15/21 10:07 Height 5 ft 6 in 5 ft 6 in Weight: 152 lb 153 lb 8 oz BMI 24.5 24.7 BP 153/70 H 160/86 H Blood Pressure Location Lt brachial Position Semi-Fowlers Sitting Respiration 20 H 16 Pulse 73 77 Pulse Source Monitor Temp 99.9 F H 99.3 F H Temp Source Temporal Temporal Pulse Oximetry (%) 94 95 Oxygen Delivery Method simple mask Intake Visit Reasons: TRIGGER POINT INJECTIONS Chief Complaint: Trigger Point injection Director Of Cardiology Required: No Accompanied by: Self Is patient in pain?: Yes (neck) Pain scale (1-10): 7 Allergies primidone Allergy (Severe, Verified 09/15/21 10:11) Anaphylaxis alcohol [From Mastisol Adhesive] Allergy (Unknown, Verified 09/15/21 10:11) Rash beef derived (bovine) Allergy (Unknown, Verified 09/15/21 10:11) Unknown gum mastic [From Mastisol Adhesive] Allergy (Unknown, Verified 09/15/21 10:11) Rash methyl salicylate [From Mastisol Adhesive] Allergy (Unknown, Verified 09/15/21 10:11) Rash mold Allergy (Unknown, Verified 09/15/21 10:11) Difficulty Breathing/Wheezing penicillin V Allergy (Unknown, Verified 09/15/21 10:11) Rash storax [From Mastisol Adhesive] Allergy (Unknown, Verified 09/15/21 10:11) Rash Statins Support Allergy (Unknown, Uncoded 08/27/21 14:22) Unknown Betachron Adverse Reaction (Unknown, Uncoded 08/27/21 14:22) Spikes in BP Medications doxycycline monohydrate 40 mg capsule,immediate - delay release 40 mg PO DAILY 04/09/21 [History Confirmed 09/15/21] famotidine 20 mg tablet (Pepcid) 20 mg PO DAILY 04/09/21 [History Confirmed 09/15/21] fenofibrate nanocrystallized 145 mg tablet (Tricor) 145 mg PO DAILY 04/09/21 [History Confirmed 09/15/21] folic acid 400 mcg tablet 0.4 mg PO DAILY 04/09/21 [History Confirmed 09/15/21] lisinopril 20 mg tablet 20 mg PO BID 04/09/21 [History Confirmed 09/15/21] prochlorperazine maleate 5 mg tablet 5 - 10 mg PO Q6H PRN Stomach Upset 04/09/21 [History Confirmed 09/15/21] albuterol sulfate 90 mcg/actuation aerosol inhaler 2 puff inhalation Q4H PRN shortness of breath or wheezing 07/16/21 [History Confirmed 09/15/21] propranolol 10 mg tablet 10 mg PO BID #60 tabs 07/16/21 [Rx Confirmed 09/15/21] PFSH Medical History Anal condyloma Balance disorder Basal cell carcinoma Benign joint hypermobility CKD stage G3b/A1, GFR 30-44 and albumin creatinine ratio <30 mg/g Coarse tremors Decreased GFR Depression with anxiety Enchondroma Essential tremor GERD (gastroesophageal reflux disease) History of diverticulitis History of kidney stones Hyperlipemia Hypertension Idiopathic thrombocytopenic purpura (ITP) Impaired fasting glucose Nausea Nocturnal hypoxia CYNTHIA (obstructive sleep apnea) Osteopenia Pancreatic divisum Pneumonia Rectal abnormality Renal cyst Rosacea Vitamin D deficiency Surgical History History of bladder surgery History of cataract surgery History of section History of cholecystectomy History of colon surgery History of D C History of hip replacement History of hysterectomy History of kidney surgery History of left hip replacement History of splenectomy Family History Father Cancer Diabetes CVA (cerebral vascular accident) Ulcer Grandfather Cancer Mother Hypertension CVA (cerebral vascular accident) Thyroid disorder Brother Hypertension Sister Hypertension Kidney disease Autoimmune disease Social History Smoking Status: Never smoker Electronic Cigarette Use: not used second hand exposure: No alcohol intake: never substance use type: does not use HPI HPI Chief Complaint: Trigger Point injection Office Procedures Neuro Injections Sites 1-2 Sites Details:: Trigger point injection: The patient presents with recurrence of her left-sided lower cervical region pain. Her last left lower cervical/trapezius trigger point injection was of benefit. Point tenderness is noted over the left lower cervical/upper medial trapezius muscle region. Informed consent was obtained. The injection site was prepped with an alcohol swab. Methylprednisolone 40 mg IM and bupivacaine 0.75% 5 mL IM was administered in the left lower cervical/upper medial trapezius muscle region. The injection site was bandaged. There were no complications. The patient tolerated the procedure well. Office Meds methylprednisolone acetate Performing Provider: Brandt Dang MD Administered by: Brandt Dang MD on 09/15/21 10:34 Dose Route Admin Location Lot Number Expiration Date NDC Manufactu rer 40 mg IM L cervical/upper trapeziu [id number] 05/30/23 [address]-5 [employer] Coding Level of Care Code Attention Qian Diagnoses Myalgia of muscle of neck M79.18 Neck pain M54.2 CPT Codes Sites - Injection: 1-2 Sites (87626) Assessment and Plan Assessment and Plan (1) Myalgia of muscle of neck: Status: Chronic (2) Neck pain: Status: Chronic Orders: Orders Methylprednisolone 40mg Today M54.2 - Cervicalgia, M79.18 - Myalgia, other site Neurology POC Today M54.2 - Cervicalgia, M79.18 - Myalgia, other site 09/15/21 1045 <Electronically signed by Brandt Dang MD> Date Brandt Garcia Signature: Date (if applicable) CC: Kristinajacob Brandon DO Work Phone: Start: 08-27-2021 End: 08-27-2021 Virtual Office Visit Comments: See Note; NOTES: [facility] [address] [place] [address] OFFICE VISIT Date of Service: 08/27/21 MR#: [id number] Acct: [id number] Patient: BITA THOMPSON Rep #: [id number] : 1945 Provider: CLAYTON ahumada Age/Sex: 75/F Location: [facility].IM[facility] Status: Signed Intake Intake Visit Reasons: covid19 Allergies primidone Allergy (Severe, Verified 08/27/21 14:22) Anaphylaxis alcohol [From Mastisol Adhesive] Allergy (Unknown, Verified 08/27/21 14:22) Rash beef derived (bovine) Allergy (Unknown, Verified 08/27/21 14:22) Unknown gum mastic [From Mastisol Adhesive] Allergy (Unknown, Verified 08/27/21 14:22) Rash methyl salicylate [From Mastisol Adhesive] Allergy (Unknown, Verified 08/27/21 14:22) Rash mold Allergy (Unknown, Verified 08/27/21 14:22) Difficulty Breathing/Wheezing penicillin V Allergy (Unknown, Verified 08/27/21 14:22) Rash storax [From Mastisol Adhesive] Allergy (Unknown, Verified 08/27/21 14:22) Rash Statins Support Allergy (Unknown, Uncoded 08/27/21 14:22) Unknown Betachron Adverse Reaction (Unknown, Uncoded 08/27/21 14:22) Spikes in BP PFSH Medical History (Updated 08/27/21 @ 14:44 by Michelle Schmidt NP, BRETTC) Anal condyloma Balance disorder Basal cell carcinoma Benign joint hypermobility CKD stage G3b/A1, GFR 30-44 and albumin creatinine ratio <30 mg/g Coarse tremors Decreased GFR Depression with anxiety Enchondroma Essential tremor GERD (gastroesophageal reflux disease) History of diverticulitis History of kidney stones Hyperlipemia Hypertension Idiopathic thrombocytopenic purpura (ITP) Impaired fasting glucose Nausea Nocturnal hypoxia CYNTHIA (obstructive sleep apnea) Osteopenia Pancreatic divisum Pneumonia Rectal abnormality Renal cyst Rosacea Vitamin D deficiency Surgical History History of bladder surgery History of cataract surgery History of section History of cholecystectomy History of colon surgery History of D C History of hip replacement History of hysterectomy History of kidney surgery History of left hip replacement History of splenectomy Family History Father Cancer Diabetes CVA (cerebral vascular accident) Ulcer Grandfather Cancer Mother Hypertension CVA (cerebral vascular accident) Thyroid disorder Brother Hypertension Sister Hypertension Kidney disease Autoimmune disease Social History Smoking Status: Never smoker Electronic Cigarette Use: not used second hand exposure: No alcohol intake: never substance use type: does not use HPI HPI Details: Patient was informed that this visit will be billed to patient. This visit was conducted during COVID-19 pandemic. Statement read to the patient: This telehealth visit is being offered during our stay at home measures in response to the pandemic. It is subject to an office visit charge and her health insurance will be billed for the cost of the infusion. The patient consents to continue. Symptom onset occurred:08/22/21 Positive COVID-19 test occurred: 08/24/2021 COVID vaccine administered: yes, Moderna, and once booster on oxygen or needed to titrate up? no Symptoms: chest cold like symptoms, labored breathing, brain fog, drainage, cough Qualifications: CYNTHIA, over 65 years old. Patient unable to take Paxlovid as her GFR is 39 as of 08/02/2021 and patient is day 6 of symptoms. The FDA has authorized the emergency use of monoclonal antibody treatment bebtelovimab for mild to moderate COVID-19 in adults and pediatric patients with positive results of direct SARS???Cov???2 viral testing ages 12 and older, at least 40 kg, who were not at high risk for progressing to severe COVID-19 and or hospitalization. The significant known and potential risks (allergic reactions or side effects from injection including brief pain, bleeding, bruising of the skin, soreness, swelling, possible infection at the infusion site) and benefits (decrease chance of progression to severe COVID-19) of a monoclonal antibody infusion, and the extent to which such potential risks and benefits are unknown. Patients treated with monoclonal antibody infusion should continue to self-isolate and use infection control measures (such as wear mask, isolate, social distance, avoid sharing personal items, clean and disinfect high touch surfaces, and frequent handwashing) according to the CDC guidelines. The fact sheet for patients, parents and caregivers will be provided prior to the administration of the medication. No drugs are approved by the FDA at this time to treat outpatients with mild or moderate symptoms of COVID-19. The following information was communicated to the patient or caregiver: Monoclonal antibody infusion is not an FDA approved drug. The FDA has authorized the emergency use of monoclonal antibody therapy. The patient had the option to refuse or accept treatment with monoclonal antibody therapy. The patient was informed that the number of people treated with monoclonal antibody therapy at this time is small. The potential benefits and the potential risks of monoclonal antibody therapy are not fully known. Potential benefits of monoclonal antibody include a reduced risk of progressing to severe COVID-19 infection. Potential risks or side effects of monoclonal antibody therapy include allergic reactions, side effects from injection including brief pain, bleeding, bruising of the skin, soreness, swelling, possible infection at the infusion site. The patient is aware that bebtelovimab is authorized for treatment of mild to moderate COVID-19 in patients for whom other COVID-19 treatment options approved or authorized by FDA are not available or clinically appropriate. ??? The patient states understanding of the information communicated and wishes to proceed with monoclonal antibody infusion therapy. The patient states understanding of this information communicated and wishes to proceed with monoclonal antibody infusion therapy. Patient agrees to receive bebtelovimab upon availability. ROS ENT ENT: Positive for post nasal drip Resp Respiratory: Positive for cough, chest congestion and shortness of breath Neuro Neurology: Positive for other (Brain fog) Exam Const General: cooperative and no acute distress Orientation: alert, awake and oriented x3 Resp Effort Inspection: normal respiratory effort and able to speak in complete sentences Neuro General: patient alert, patient awake and patient oriented x3 Cognition: normal cognition Speech: speech normal Psych Mental Status: mental status grossly normal Mood: congruent mood Attitude: cooperative Thought Process: normal Thought Content: normal Judgment: judgment good Details: Details:: Exam was limited due to phone visit with no video. Quality Reporting Tobacco Screening ([facility] 138) Smoking Status: Never smoker Coding Level of Care Code New Pt Level 1 Telephone Patient Type New History Problem Focused Exam Problem Focused Medical Decision Making Straight Forward Diagnoses COVID-19 U07.1 65 years of age or older Time Spent (min) 10 Comment 03579 Assessment and Plan Assessment and Plan (1) COVID-19: Status: Acute Plan: Treatment with Paxlovid is not appropriate at this time due to he has had symptoms of Covid-19 past 5 days.??? She has been informed about the risks and the benefits of treatment with Bebtelovimab and wishes to proceed with monoclonal antibody treatment.??? Patient verbalized understanding of education and instructions.??? Questions and concerns were answered and addressed.??? (2) 65 years of age or older: Status: Acute 08/27/21 1446 <Electronically signed by Michelle ARNOLD> Date Michelle ARNOLD Cosigner Signature: Date (if applicable) CC: DO Kristina Brady DO Work Phone: Start: 07-16-2021 End: 07-17-2021 Neurology Visit Report Comments: See Note; NOTES: [facility] [address] [place] [address] OFFICE VISIT Date of Service: 07/16/21 MR#: [id number] Acct: [id number] Name: BITA THOMPSON Rep #: [id number] : 1945 Provider: Dr. Brandt blackman MD Age/Sex: 75/F Location: [facility] Status: Signed Intake Vital Signs 07/16/21 14:14 Height 5 ft 6.5 in Weight: 147 lb BMI 23.3 BP 140/72 H Blood Pressure Location Lt brachial Position Sitting Respiration 20 H Pulse 74 Pulse Source Monitor Temp 98.7 F Temp Source Temporal Pulse Oximetry (%) 99 Oxygen Delivery Method room air Intake Visit Reasons: 3 M FU Director Of Cardiology Required: No Accompanied by: self Is patient in pain?: No Allergies primidone Allergy (Severe, Verified 07/16/21 14:16) Anaphylaxis alcohol [From Mastisol Adhesive] Allergy (Unknown, Verified 07/16/21 14:16) Rash beef derived (bovine) Allergy (Unknown, Verified 07/16/21 14:16) Unknown gum mastic [From Mastisol Adhesive] Allergy (Unknown, Verified 07/16/21 14:16) Rash methyl salicylate [From Mastisol Adhesive] Allergy (Unknown, Verified 07/16/21 14:16) Rash mold Allergy (Unknown, Verified 07/16/21 14:16) Difficulty Breathing/Wheezing penicillin V Allergy (Unknown, Verified 07/16/21 14:16) Rash storax [From Mastisol Adhesive] Allergy (Unknown, Verified 07/16/21 14:16) Rash Statins Support Allergy (Unknown, Uncoded 07/16/21 14:16) Unknown Betachron Adverse Reaction (Unknown, Uncoded 07/16/21 14:16) Spikes in BP Medications doxycycline monohydrate 40 mg capsule,immediate - delay release 40 mg PO DAILY 04/09/21 [History Confirmed 07/16/21] famotidine 20 mg tablet 20 mg PO DAILY 04/09/21 [History Confirmed 07/16/21] fenofibrate nanocrystallized 145 mg tablet 145 mg PO DAILY 04/09/21 [History Confirmed 07/16/21] folic acid 400 mcg tablet 0.4 mg PO DAILY 04/09/21 [History Confirmed 07/16/21] lisinopril 20 mg tablet 20 mg PO BID 04/09/21 [History Confirmed 07/16/21] prochlorperazine maleate 5 mg tablet 5 - 10 mg PO Q6H PRN tab 04/09/21 [History Confirmed 07/16/21] albuterol sulfate 90 mcg/actuation aerosol inhaler 2 puff INHALATION Q4H PRN g 07/16/21 [History Confirmed 07/16/21] levofloxacin 500 mg tablet ea PO 07/16/21 [History Confirmed 07/16/21] montelukast 10 mg tablet tablet PO 07/16/21 [History Confirmed 07/16/21] propranolol 10 mg tablet 10 mg PO BID #60 tab 07/16/21 [Rx Confirmed 07/16/21] PFSH Medical History (Updated 07/17/21 @ 13:[address] Brandt Dang MD) Anal condyloma Balance disorder Basal cell carcinoma Benign joint hypermobility CKD stage G3b/A1, GFR 30-44 and albumin creatinine ratio <30 mg/g Coarse tremors Decreased GFR Depression with anxiety Enchondroma Essential tremor GERD (gastroesophageal reflux disease) History of diverticulitis History of kidney stones Hyperlipemia Hypertension Idiopathic thrombocytopenic purpura (ITP) Impaired fasting glucose Nausea Nocturnal hypoxia CYNTHIA (obstructive sleep apnea) Osteopenia Pancreatic divisum Pneumonia Rectal abnormality Renal cyst Rosacea Vitamin D deficiency Surgical History History of bladder surgery History of cataract surgery History of section History of cholecystectomy History of colon surgery History of D C History of hip replacement History of hysterectomy History of kidney surgery History of left hip replacement History of splenectomy Family History Father Cancer Diabetes CVA (cerebral vascular accident) Ulcer Grandfather Cancer Mother Hypertension CVA (cerebral vascular accident) Thyroid disorder Brother Hypertension Sister Hypertension Kidney disease Autoimmune disease Social History Smoking Status: Never smoker Electronic Cigarette Use: not used second hand exposure: No alcohol intake: never substance use type: does not use HPI HPI Details: Interim History: The patient returns for follow-up visit. She has a history of hypertension, hyperlipidemia, obstructive sleep apnea on CPAP, COPD, basal cell skin cancer status post excision, stage III renal insufficiency, prior history of idiopathic thrombocytopenic purpura (status post splenectomy in 1969) and essential tremor. She has been experiencing a tremor since she was a teenager and this worsened during adulthood. Her tremor interferes with activities including handwriting and using cooking utensils. The tremor affects both hands and is increased with action and when she is tired or anxious. She also has a head tremor. Primidone 50 mg daily tried in years past was not of benefit and caused sedation. She has had nystagmus noted on examination since childhood. Since around 2006, she has had gait imbalance. She has had physical therapy multiple times in the past. She has had low back pain and has bilateral hip pain and a feeling of stiffness in the hips. She had a fall in 2015 and sustained lumbar compression fracture(s) and underwent lumbar surgery at the L3-4-5 levels in 2015. This was of benefit for her low back pain and she denies having low back pain presently. She denied having any radicular pain in the lower extremities. She had a fall in 2020 and sustained a left hip fracture for which she underwent a partial hip replacement. She has had neck pain since her fall in the spring 2020 and this radiates to the left shoulder. Her neck pain is prominent presently Acetaminophen has been of benefit for her musculoskeletal pain. She denied having weakness. She denied having vertigo, disequilibrium or lightheadedness. She denied having headaches. She reported that the cause of her nystagmus is unknown. She has chronic anxiety. She denied having depression. Records indicate that a trial of Trokendi caused sedation. Physical Exam: Neuro: The patient is awake and alert and responds appropriately; speech is fluent; no rigidity is noted in the wrists; a mild tremor is noted in the hands when arms are extended Heart: regular rate and rhythm Neck: left lower cervical/upper medial trapezius muscle tenderness is noted ROS Const Constitutional: Positive for fatigue, weakness and other (10 ROS negative unless otherwise noted); No fever(s) or weight change Eyes Eyes: Positive for blurry vision and Light sensitivity ENT ENT: Positive for nasal congestion and hoarseness Resp Respiratory: Positive for shortness of breath sob: SOB with activity Cardio Cardiology: Positive for leg pain with exertion and shortness of breath; No chest pain at rest or chest pain with exertion Gastro GI: Positive for bloating, constipation, heartburn and excessive flatus; No abdominal pain, change in bowel habits, diarrhea or nausea/dyspepsia Genitourinary-Female: Positive for urinary incontinence, urinary frequency and urinary urgency; No difficulty urinating, urinary hesitancy, urinary retention or blood in urine Musc Musculoskeletal: Positive for abnormal gait, joint pain, back pain, muscle cramps, muscle weakness, numbness, stiffness, tingling, Arthritis, sciatica and leg pain with exertion Skin Skin: No dry skin, redness or rash Neuro Neurology: Positive for abnormal gait, weakness, numbness, tingling, tremor(s) and Increased tone in limbs Psych Psychiatric: Positive for anxiety and Positive for depression Endo Endocrine: Positive for fatigue, heat intolerance and increased urine leakage; No weight change Office Procedures Neuro Injections Sites 1-2 Sites Office Meds methylprednisolone acetate Performing Provider: Brandt Dang MD Administered by: Candi Childers on 07/16/21 15:02 Dose Route Admin Location Lot Number Expiration Date [facility] Manufactu rer 40 mg IM cervical [id number] 01/28/23 87941-536-70 [employer] Comments: Bupivacaine 75MG/10 ML 5 ml given [facility] 44010-133-45 LOT [id number] EXP 12/2022 The patient has left-sided lower cervical paraspinal muscle pain and tenderness. Informed consent was obtained. The left lower cervical/medial upper trapezius area was prepped with an alcohol swab. Methylprednisolone 40 mg IM and bupivacaine 0.75% 5 mL IM was injected in the left lower cervical paraspinal muscle/medial upper trapezius muscle region. The injection site was bandaged. There were no complications. The patient tolerated the procedure well. Supplemental Info CBC, CMP (03/18/2021): BUN 38, creatinine 1.37, EGFR 40, glucose 125. TSH, creatinine (04/09/21): creatinine 1.61, eGFR 33 Head MRI (04/23/21): FINDINGS: BRAIN AND EXTRA-AXIAL SPACES: T2 FLAIR hyperintensity foci in the white matter of both cerebral hemispheres are nonenhancing and have no mass effects. These are chronic white matter ischemic changes. No enhancing lesions intraaxially and extra-axially. No remote cortical based ischemic infarcts. No midline shift and no mass effects. Normal ventricles and cisterns. No intra- or extra-axial hemorrhage. Posterior fossa structures are unremarkable. SELLA: Unremarkable. Normal sella turcica, pituitary gland, infundibular stalk, optic chiasm and hypothalamus. AUDITORY SYSTEM: Unremarkable. The internal auditory canals are patent. BONES/JOINTS: Unremarkable. No discrete lytic or blastic abnormalities. SINUSES: Unremarkable as visualized. Clear. MASTOID AIR CELLS: Unremarkable as visualized. Clear. ORBITS: Unremarkable as visualized. Both globes, extraocular muscles, optic nerves and retrobulbar fat appear unremarkable. VASCULATURE: Unremarkable as visualized. Normal flow voids in the major intracranial circulation. IMPRESSION: 1. No MRI evidence of acute or subacute ischemic infarct or remote cortical based ischemic infarct. 2. No MRI evidence of intracranial mass. 3. Chronic white matter ischemic changes in both cerebral hemispheres. 4. No abnormal enhancing lesions intraaxially and extra-axially. Cervical MRI (04/23/21): FINDINGS: Normal foramen magnum and brainstem-cervical cord junction. Normal craniovertebral junction. Normal anterior atlantoaxial articulation. Normal odontoid process. Normal cervical lordosis. Normal vertebral bodies and posterior osseous elements. C2-3: Normal endplates. Normal disc height, signal and morphology. Normal central canal and intervertebral neural foramina. C3-4: Normal endplates. Normal disc height. Minimal degenerative anterolisthesis of C3 on C4. Normal central canal and intervertebral neural foramina. C4-5: Normal endplates. Mild disc space height narrowing. Mild degenerative anterolisthesis of C4 on C5. Normal central canal and left intervertebral neural foramen. Moderately pronounced stenosis of the right intervertebral neural foramen. C5-6: MODIC type I degenerative vertebral marrow edema underneath the vertebral endplates. Moderate disc space height narrowing. Anterior and posterior marginal spurs. Normal central canal. Moderately pronounced stenosis of the intervertebral neural foramina. C6-7: Anterior posterior marginal spurs. Normal endplates. Moderate disc space height narrowing. Normal central canal and intervertebral neural foramina. C7-T1: Normal endplates. Normal disc height. Mild degenerative anterolisthesis of C7 on T1. Normal intervertebral neural foramina. Perineural cyst in the right intervertebral neural foramen. T1-T2: (Sagittal only). Normal endplates. Normal disc height. Minimal ventral extradural defect due to small posterior bulging annulus. Normal central canal and intervertebral neural foramina. T2-3: (Sagittal only). Normal endplates. Normal disc height. Minimal ventral extra dural defect due to small posterior bulging annulus. Normal central canal and intervertebral neural foramina. T3-T4: (Sagittal only). Normal endplates. Minimal disc space height narrowing. Mild degenerative anterolisthesis of T3 on T4. Normal central canal and intervertebral neural foramina. T4-T5 and T5-T6: (Sagittal only). Normal endplates. Normal disc height and morphology. Normal central canal and intervertebral neural foramina. Normal cervical cord. Normal upper thoracic spinal cord. Normal included portions of the brainstem and cerebellum. Normal visualized soft tissue structures. IMPRESSION: 1. No MRI evidence of cervical extruded disc fragment. 2. Minimal degenerative anterolisthesis of C3 on C4. 3. Minimal degenerative anterolisthesis of C4 on C5 and moderately pronounced stenosis of the right intervertebral neural foramen. 4. Mild C5-C6 intervertebral osteochondritis (MODIC type I) and moderately pronounced stenosis of the intervertebral neural foramina. 5. Mild degenerative anterolisthesis of C7 on T1 and T3 on T4. 6. Normal cervical spinal cord. Coding Level of Care Code Off vis,est,level 3 Diagnoses Essential tremor G25.0 Abnormality of gait and mobility R26.9 Neck pain M54.2 Low back pain M54.50 Myalgia of muscle of neck M79.18 CPT Codes Sites - Injection: 1-2 Sites (28043) Assessment and Plan Assessment and Plan (1) Essential tremor: Status: Chronic (2) Abnormality of gait and mobility: Status: Chronic (3) Neck pain: Status: Chronic Orders: Orders: Methylprednisolone 80 mg 07/16/21 (4) Low back pain: Status: Resolved (5) Myalgia of muscle of neck: Status: Chronic Plan Details Other Medications: Changed: From: propranolol 10 mg PO QAM 30 tabs 3RF To: propranolol 10 mg PO BID 60 tabs 3RF Additional Comments: The patient has an essential tremor. Her tremor is causing functional impairment. Prior use of low-dose primidone was not of benefit and caused sedation as a side effect. Propranolol 10mg daily is of modest benefit for her tremor. Anxiety worsens her tremor. - Propranolol will be increased to 10mg BID. - If propranolol shout be suboptimally effective then initiation of a medication for anxiety may possibly be helpful for her tremor and this will be considered in the future. She has had gait imbalance for years. She has exhibited a wide-based unsteady gait. No motor strength or sensory deficits or rigidity were noted on exam. She exhibited rotatory nystagmus on rightward and leftward gaze and she reported that nystagmus has been present since childhood (the cause of her nystagmus is unknown). She denied having dizziness or lightheadedness. Chronic small vessel ischemic disease is reported on her head MRI. Over the years, she has had multiple courses of physical therapy for her gait disorder. Structural lumbar and hip conditions may be causing mechanical issues contributing to her gait imbalance. She denies having low back pain presently. She has had chronic neck pain since a fall in early 2020; she also had a hip fracture with this fall and underwent a partial hip replacement. She has low back pain and had lumbar surgery in the past for lumbar vertebral fracture(s). A cervical MRI reveals multilevel degenerative joint disease. Due to chronic renal insufficiency, prescription NSAIDs will not be prescribed. - A left lower cervical/medial upper trapezius muscle trigger point injection (methylprednisolone 40mg IM and bupivacaine 0.75% 5ml IM) was administered today for focal pain in this region. I will have her return for reassessment in 3 months. 07/17/21 9736 <Electronically signed by Brandt Dang MD> Date Brandt Dang MD Cosigner Signature: Date (if applicable) CC: Kristina Brandon DO Work Phone: Start: 06-04-2021 End: 08-11-2021 Kidney and Bladder Comments: See Note; NOTES: [facility] Services [address] [place] [id number] Kidney and Bladder MR#: [id number] Acct: [id number] Name: BITA THOMPSON Rep #: [id number] : 1945 F 75 From: Hemant varma MD PCP: Dr. Kristina Brandon, DO Status: REG CLI Study: Kidney and Bladder Date of Exam: 06/04/21 Exam# [id number] Ordering Dr: Angel Luis Middleton MD STUDY: RENAL ULTRASOUND - COMPLETE REASON FOR EXAM: Female, 75 years old. CKD TECHNIQUE: Ultrasound evaluation of the kidneys was performed with real-time and static alamo-scale imaging. COMPARISON: None. FINDINGS: RIGHT KIDNEY: Normal location of the right kidney, which is normal in size. The right kidney measures 9.7 cm x 4.3 cm x 4.2 cm. There is a normal cortex of the right kidney. The renal cortex measures 1.2 cm. Multiple small cysts are seen. The largest measures 8 mm x 7 mm x 7 mm. There are no right renal calculi. There is no right hydronephrosis. DISTAL RIGHT URETER: There is non-visualization of the distal right ureter. There is no demonstrated right ureterovesical junction calculus. There is a visualized right ureteral jet. LEFT KIDNEY: Normal location of the left kidney, which is normal in size. The left kidney measures 9.7 cm x 4.97 x 4.9 cm. There is a normal cortex of the left kidney. The renal cortex measures 1.0 cm. Multiple small cysts are seen. The largest measures 1.6 times by 1.4 size by 1.8 cm. There are no left renal calculi. There is no left hydronephrosis. DISTAL LEFT URETER: There is non-visualization of the distal left ureter. There is no demonstrated left ureterovesical junction calculus. There is a visualized left ureteral jet. BLADDER: The distended urinary bladder has a volume of 337 ml. There is a normal wall thickness of the distended urinary bladder. There is no demonstrated mass within the urinary bladder. There are no demonstrated bladder calculi. US/Kidney and Bladder IMPRESSION: Multiple small bilateral renal cysts. Electronically Signed: Hemant Meneses MD at 15:29 EDT , CC: Dr. Angel Lusi Middleton MD; Dr. Kristina Brandon DO Licensed Club Manager: Signed James Middleton Work Phone: Start: 06-04-[address] Brandt Dang Work Phone: Start: 04-23-2021 MRI of brain with contrast Dr. Brandt Dang Work Phone: Start: 04-23-2021 MRI of cervical spine Dr. Brandt lincoln Work Phone: Start: 04-23-2021 End: 04-23-2021 Brain W/WO Contrast Comments: See Note; NOTES: [facility] Imaging Services [address] [place] [address] Brain W/WO Contrast MR#: [id number] Acct: [id number] Name: BITA THOMPSON Rep #: [id number] : 1945 F 75 From: Jacob Norris MD PCP: Dhaval Israel LODGING FACILITIES ATTENDANT-C Status: REG CLI Study: Brain W/WO Contrast Date of Exam: 04/23/21 Exam# [id number] Ordering Dr: Brandt Dang MD EXAM: MR HEAD WITHOUT AND WITH INTRAVENOUS CONTRAST CLINICAL INDICATION: Gait Disorder, Nystagmus, TREMORS TECHNIQUE: Multiplanar and multisequence MR images of the brain were obtained without and with intravenous contrast. This report was created using [employer] report generation technology. CONTRAST: 13 ML IV DOTAREM COMPARISON: None. FINDINGS: BRAIN AND EXTRA-AXIAL SPACES: T2 FLAIR hyperintensity foci in the white matter of both cerebral hemispheres are nonenhancing and have no mass effects. These are chronic white matter ischemic changes. No enhancing lesions intraaxially and extra-axially. No remote cortical based ischemic infarcts. No midline shift and no mass effects. Normal ventricles and cisterns. No intra- or extra-axial hemorrhage. Posterior fossa structures are unremarkable. SELLA: Unremarkable. Normal sella turcica, pituitary gland, infundibular stalk, optic chiasm and hypothalamus. AUDITORY SYSTEM: Unremarkable. The internal auditory canals are patent. BONES/JOINTS: Unremarkable. No discrete lytic or blastic abnormalities. SINUSES: Unremarkable as visualized. Clear. MASTOID AIR CELLS: Unremarkable as visualized. Clear. ORBITS: Unremarkable as visualized. Both globes, extraocular muscles, optic nerves and retrobulbar fat appear unremarkable. VASCULATURE: Unremarkable as visualized. Normal flow voids in the major intracranial circulation. MRI/Brain W/WO Contrast IMPRESSION: 1. No MRI evidence of acute or subacute ischemic infarct or remote cortical based ischemic infarct. 2. No MRI evidence of intracranial mass. 3. Chronic white matter ischemic changes in both cerebral hemispheres. 4. No abnormal enhancing lesions intraaxially and extra-axially. Electronically Signed: Jacob Norris MD at 16:13 EST , CC: L[employer]GING [employer]ILIT[employer] ATTENDANT-C Dhaval Israel; Dr. Brandt Dang MD Licensed Club Manager: Signed Brandt Dang Work Phone: Start: 04-23-2021 End: 04-24-2021 Spine Cervical (Routine) Comments: See Note; NOTES: [facility] Imaging Services [address] [place] [id number] Spine Cervical (Routine) MR#: [id number] Acct: [id number] Name: BITA THOMPSON Rep #: [id number] : 1945 F 75 From: Jacob Norris MD PCP: CLAYTON Davison Status: REG CLI Study: Spine Cervical (Routine) Date of Exam: Exam# [id number] Ordering Dr: Brandt Dang MD STUDY: MRI CERVICAL SPINE WITHOUT CONTRAST REASON FOR EXAM: Female, 75 years old. Gait disorder, Neck Pain, TREMORS TECHNIQUE: Standardized fat and water weighted pulse sequences were obtained in the sagittal and axial planes. COMPARISON: None FINDINGS: Normal foramen magnum and brainstem-cervical cord junction. Normal craniovertebral junction. Normal anterior atlantoaxial articulation. Normal odontoid process. Normal cervical lordosis. Normal vertebral bodies and posterior osseous elements. C2-3: Normal endplates. Normal disc height, signal and morphology. Normal central canal and intervertebral neural foramina. C3-4: Normal endplates. Normal disc height. Minimal degenerative anterolisthesis of C3 on C4. Normal central canal and intervertebral neural foramina. C4-5: Normal endplates. Mild disc space height narrowing. Mild degenerative anterolisthesis of C4 on C5. Normal central canal and left intervertebral neural foramen. Moderately pronounced stenosis of the right intervertebral neural foramen. C5-6: MODIC type I degenerative vertebral marrow edema underneath the vertebral endplates. Moderate disc space height narrowing. Anterior and posterior marginal spurs. Normal central canal. Moderately pronounced stenosis of the intervertebral neural foramina. C6-7: Anterior posterior marginal spurs. Normal endplates. Moderate disc space height narrowing. Normal central canal and intervertebral neural foramina. C7-T1: Normal endplates. Normal disc height. Mild degenerative anterolisthesis of C7 on T1. Normal intervertebral neural foramina. Perineural cyst in the right intervertebral neural foramen. T1-T2: (Sagittal only). Normal endplates. Normal disc height. Minimal ventral extradural defect due to small posterior bulging annulus. Normal central canal and intervertebral neural foramina. T2-3: (Sagittal only). Normal endplates. Normal disc height. Minimal ventral extra dural defect due to small posterior bulging annulus. Normal central canal and intervertebral neural foramina. T3-T4: (Sagittal only). Normal endplates. Minimal disc space height narrowing. Mild degenerative anterolisthesis of T3 on T4. Normal central canal and intervertebral neural foramina. T4-T5 and T5-T6: (Sagittal only). Normal endplates. Normal disc height and morphology. Normal central canal and intervertebral neural foramina. Normal cervical cord. Normal upper thoracic spinal cord. Normal included portions of the brainstem and cerebellum. Normal visualized soft tissue structures. MRI/Spine Cervical (Routine) IMPRESSION: 1. No MRI evidence of cervical extruded disc fragment. 2. Minimal degenerative anterolisthesis of C3 on C4. 3. Minimal degenerative anterolisthesis of C4 on C5 and moderately pronounced stenosis of the right intervertebral neural foramen. 4. Mild C5-C6 intervertebral osteochondritis (MODIC type I) and moderately pronounced stenosis of the intervertebral neural foramina. 5. Mild degenerative anterolisthesis of C7 on T1 and T3 on T4. 6. Normal cervical spinal cord. Electronically Signed: Jacob Norris MD at 9:24 EST Reading Location ID and State: [facility] / [place] , Service support , CC: CLAYTON Israel; Dr. Brandt Dang MD Licensed Club Manager: Signed Brandt Dang Work Phone: Start: 04-09-2021 End: 04-09-2021 Neurology Visit Report Comments: See Note; NOTES: [facility] [address] [place] [address] OFFICE VISIT Date of Service: 04/09/21 MR#: [id number] Acct: [id number] Name: BITA THOMPSON Rep #: [id number] : 1945 Provider: Dr. Brandt blackman MD Age/Sex: 75/F Location: [facility]. Status: Signed Intake Vital Signs 04/09/21 08:49 Weight: 153 lb BP 146/86 H Blood Pressure Location Rt brachial Position Sitting Pulse 65 Pulse Source Monitor Pulse Oximetry (%) 97 Oxygen Delivery Method room air Intake Visit Reasons: TREMORS/BALANCE Director Of Cardiology Required: No Accompanied by: Self Is patient in pain?: No Allergies primidone Allergy (Severe, Verified 04/09/21 09:03) Anaphylaxis alcohol [From Mastisol Adhesive] Allergy (Unknown, Verified 04/09/21 09:03) Rash beef derived (bovine) Allergy (Unknown, Verified 04/09/21 09:03) Unknown gum mastic [From Mastisol Adhesive] Allergy (Unknown, Verified 04/09/21 09:03) Rash methyl salicylate [From Mastisol Adhesive] Allergy (Unknown, Verified 04/09/21 09:03) Rash mold Allergy (Unknown, Verified 04/09/21 09:03) Difficulty Breathing/Wheezing penicillin V Allergy (Unknown, Verified 04/09/21 09:03) Rash storax [From Mastisol Adhesive] Allergy (Unknown, Verified 04/09/21 09:03) Rash Statins Support Allergy (Unknown, Uncoded 04/09/21 09:03) Unknown Betachron Adverse Reaction (Unknown, Uncoded 04/09/21 09:03) Spikes in BP Medications doxycycline monohydrate 40 mg capsule,immediate - delay release 40 mg PO DAILY 04/09/21 [History Confirmed 04/09/21] estradiol 1 g VAGINAL QWEEK 04/09/21 [History Confirmed 04/09/21] famotidine 20 mg tablet 20 mg PO DAILY 04/09/21 [History Confirmed 04/09/21] fenofibrate nanocrystallized 145 mg tablet 145 mg PO DAILY 04/09/21 [History Confirmed 04/09/21] folic acid 400 mcg tablet 0.4 mg PO DAILY 04/09/21 [History Confirmed 04/09/21] lisinopril 20 mg tablet 20 mg PO BID 04/09/21 [History Confirmed 04/09/21] prochlorperazine maleate 5 mg tablet 5 - 10 mg PO Q6H PRN tab 04/09/21 [History Confirmed 04/09/21] propranolol 10 mg tablet 10 mg PO QAM #30 tab 04/09/21 [Rx Confirmed 04/09/21] PFSH Medical History (Updated 04/09/21 @ 11:[address] Brandt Dang MD) Anal condyloma Balance disorder Basal cell carcinoma Benign joint hypermobility CKD stage G3b/A1, GFR 30-44 and albumin creatinine ratio <30 mg/g Coarse tremors Decreased GFR Depression with anxiety Enchondroma Essential tremor GERD (gastroesophageal reflux disease) History of diverticulitis History of kidney stones Hyperlipemia Hypertension Idiopathic thrombocytopenic purpura (ITP) Impaired fasting glucose Nausea Nocturnal hypoxia CYNTHIA (obstructive sleep apnea) Osteopenia Pancreatic divisum Rectal abnormality Renal cyst Rosacea Vitamin D deficiency Surgical History (Updated 04/09/21 @ 09:55 by Staci Vora) History of bladder surgery History of cataract surgery History of section History of cholecystectomy History of colon surgery History of D C History of hip replacement History of hysterectomy History of kidney surgery History of left hip replacement History of splenectomy Family History (Updated 04/09/21 @ 09:13 by Staci Vora) Father Cancer Diabetes CVA (cerebral vascular accident) Ulcer Grandfather Cancer Mother Hypertension CVA (cerebral vascular accident) Thyroid disorder Brother Hypertension Sister Hypertension Kidney disease Autoimmune disease Social History (Updated 04/09/21 @ 09:56 by Staci Vora) Smoking Status: Never smoker Electronic Cigarette Use: not used second hand exposure: No alcohol intake: never substance use type: does not use HPI HPI Details: History: The patient is a 75-year-old right-handed woman with a past medical history of hypertension, hyperlipidemia, obstructive sleep apnea on CPAP, COPD, basal cell skin cancer status post excision, stage III renal insufficiency, prior history of idiopathic thrombocytopenic purpura (status post splenectomy in 1969) and essential tremor who presents for evaluation of her tremor and gait imbalance. She has been experiencing a tremor since she was a teenager. Starting in her 50s, her tremor worsened. Her tremor interferes with activities including handwriting and using cooking utensils. The tremor affects both hands and is increased when she is tired or anxious and also increases with action. She also has a head tremor. She tried primidone 50 mg daily in years past and this was not of benefit for her tremor and caused sedation as a side effect. She has had nystagmus noted on examination since childhood. Since around 2006, she has had gait imbalance. She has had physical therapy multiple times in the past. She has had low back pain and has bilateral hip pain and a feeling of stiffness in the hips. She had a fall in 2015 and sustained lumbar compression fracture(s) and underwent lumbar surgery at the L3-4-5 levels in 2016. This was of benefit for her low back pain. She denies having any radicular pain in the lower extremities. She had a fall in the spring 2020 and sustained a left hip fracture for which she underwent a partial hip replacement. She has had neck pain since her fall in the spring 2020 and this radiates to the left shoulder. Acetaminophen has been of benefit for her musculoskeletal pain. She denies having weakness. She has some blurring of vision that she attributes to dry eyes and this is improved with use of eyedrops. She denies having vertigo, disequilibrium or lightheadedness. She denies having headaches. She states that the cause of her nystagmus is unknown. She has prominent chronic anxiety. She denies having depression presently. Records indicate that a trial of Trokendi caused sedation. Past Medical History: As above. There is no history of diabetes mellitus, heart disease, stroke, seizure or thyroid disease. She had recent pneumonia. Social History: She does not smoke tobacco. There is no history of alcohol abuse. There is no history of illicit drug use. Family History: The patient's mother and father had strokes. The patient's mother had a tremor. There is no family history of parkinsonism, seizure or cerebral aneurysm. Review of Systems: As above. The patient has not had any recent fever, rash, weight change or urinary problems. She has a history of dyspepsia/GERD. She had recent chest pain and shortness of breath associated with her pneumonia. Physical Exam: General: Well-developed, well-nourished female in no acute distress. Neuro: The patient is awake and alert and responds appropriately; speech is fluent; language function is within normal limits Cranial nerves: PERRL, 3mm bilaterally; EOMI; visual badillo are full; visual acuity is 20/25 on the left and 20/30 on the right; face is symmetrical; tongue is midline; there are no deficits to pinprick Cerebellar system: No dysmetria; she exhibits rotatory nystagmus on rightward and leftward gaze; no nystagmus is noted on upward or downward gaze Deep tendon reflexes: +2 at the right triceps, absent at the left triceps, biceps bilaterally, brachioradialis bilaterally, knees and left ankle and trace at the right ankle;plantar responses are downward bilaterally Motor: Strength 5/5 in the biceps bilaterally, abductor pollicis brevis muscles bilaterally, first dorsal interosseous muscles bilaterally, iliopsoas bilaterally, hamstrings bilaterally quadriceps bilaterally and foot dorsiflexors bilaterally; no drift; no rigidity; a moderate fine tremor is noted in the hands and head; her hand tremor is worsened with action Sensory: There are no deficits to soft touch, vibration, or pinprick Gait: Slow and wide-based and mildly unsteady however she is able to ambulate independently; Romberg is negative HEENT: Normocephalic; atraumatic; tympanic membranes are clear Neck: No bruits Heart: Regular rate and rhythm Extremities: No cyanosis or edema; posterior tibial pulses are +2 bilaterally ROS Const Constitutional: Positive for fatigue, frequent falls, weakness and other (10 ROS negative unless otherwise noted); No fever(s) or weight change Eyes Eyes: Positive for blurry vision and Light sensitivity ENT ENT: Positive for nasal congestion and hoarseness Resp Respiratory: Positive for shortness of breath sob: SOB with activity Cardio Cardiology: Positive for leg pain with exertion and shortness of breath; No chest pain at rest or chest pain with exertion Gastro GI: Positive for bloating, constipation, heartburn and excessive flatus; No abdominal pain, change in bowel habits, diarrhea or nausea/dyspepsia Genitourinary-Female: Positive for urinary incontinence, urinary frequency and urinary urgency; No difficulty urinating, urinary hesitancy, urinary retention or blood in urine Musc Musculoskeletal: Positive for abnormal gait, joint pain, back pain, muscle cramps, muscle weakness, numbness, stiffness, tingling, Arthritis, sciatica and leg pain with exertion Skin Skin: No dry skin, redness or rash Neuro Neurology: Positive for abnormal gait, weakness, frequent falls, numbness, tingling, tremor(s) and Increased tone in limbs Psych Psychiatric: Positive for anxiety and Positive for depression Endo Endocrine: Positive for fatigue, heat intolerance and increased urine leakage; No weight change Supplemental Info CBC, CMP (03/18/2021): BUN 38, creatinine 1.37, EGFR 40, glucose 125. Coding Level of Care Code Off vis,new,level 4 Diagnoses Essential tremor G25.0 Anxiety F41.9 Abnormality of gait and mobility R26.9 Neck pain M54.2 Low back pain M54.50 Nystagmus H55.00 Assessment and Plan Assessment and Plan (1) Essential tremor: Status: Acute (2) Anxiety: Status: Acute (3) Abnormality of gait and mobility: Status: Acute (4) Neck pain: Status: Acute (5) Low back pain: Status: Acute (6) Nystagmus: Status: Acute Orders: Orders: Serum Creatinine GFR Today G25.0 Thyroid Stim Hormone (TSH) Today G25.0 Spine Cervical (Routine) Today R26.9, M54.2 Brain W/WO Contrast Today R26.9, H55.00 Plan Details Other Medications: New: propranolol 10 mg PO QAM 30 tabs 3RF Additional Comments: I suspect that the the patient's tremor is an essential tremor. Her tremor is causing functional impairment. Prior use of low-dose primidone was not of benefit and caused sedation as a side effect. She will be evaluated further with a TSH. I will have her begin propranolol 10 mg every morning for her tremor. She has anxiety and this amplifies her tremor when her anxiety is pronounced. If propranolol is ineffective for her tremor then initiation of a medication for anxiety may possibly be helpful for her tremor and this will be considered in the future. She has been experiencing gait imbalance for years. She exhibits a wide-based unsteady gait. No motor strength or sensory deficits are noted on exam and no rigidity is noted. She exhibits rotatory nystagmus on rightward and leftward gaze and she reports that nystagmus has been present since childhood (the cause of her nystagmus is unknown). She will be evaluated further with a head MRI to assess for structural pathology that may account for her gait imbalance and nystagmus. She denies having dizziness or lightheadedness. She has chronic renal insufficiency. A creatinine will be checked. She also reports having neck pain since a fall in early 2020; she also had a hip fracture with this fall and underwent a partial hip replacement. She has low back pain and had lumbar surgery in the past for lumbar vertebral fracture(s). A cervical MRI will also be ordered.over the years, she has had multiple courses of physical therapy for her gait disorder. Structural lumbar and hip conditions may be causing mechanical issues contributing to her gait imbalance. If cervical or brain pathology to account for her gait difficulty is not identified then assessment of her lumbar spine and hips will be considered. Due to her chronic renal insufficiency, prescription NSAIDs will not be prescribed. I will have her return for reassessment in 3 months. Thank you for this consultation. 04/09/21 [id number] <Electronically signed by Brandt Dang MD> Date Brandt Dang MD Cosigner Signature: Date (if applicable) CC: [employer]ODGING FACILITIES ATTENDANT-C Dhaval Brandon DO Work Phone: Start: 03-18-2021 End: 03-18-2021 Chest PA and Lateral Comments: See Note; NOTES: [facility] [address] [place], [place] [address] [address] Chest PA and Lateral MR#: [id number] Acct: [id number] Name: BITA THOMPSON Rep #: [id number] : 1945 F 75 From: Hemant varma MD PCP: CLAYTON Davison Status: REG CLI Study: Chest PA and Lateral Date of Exam: 03/18/21 Exam# [id number] Ordering Dr: Dhaval Israel NP STUDY: X-RAY CHEST REASON FOR EXAM: Female, 75 years old. CHEST PRESSURE TECHNIQUE: PA and lateral views of the chest. COMPARISON: None. FINDINGS: There is hyperinflation of the lungs consistent with chronic obstructive lung disease (COPD). Mild increased markings at the left lung base. Early left basilar infiltrate should be ruled out. There is no demonstrated pleural abnormality. Normal size heart. Normal mediastinum and ge. Normal visualized pulmonary arteries. Normal visualized aortic arch and descending thoracic aorta. There is demineralization of the osseous structures. Normal visualized ribs, clavicles, and shoulders. There is no demonstrated abnormality of the visualized soft tissue structures of the upper abdomen. RAD/Chest PA and Lateral IMPRESSION: Hyperinflation. Early left lower lobe infiltrate. Electronically Signed: Hemant Meneses MD at 14:08 EST , Service support , CC: CLAYTON Israel Licensed Club Manager: Signed Dhaval Israel VP CLINICAL Work Phone: Start: 07-31-2020 End: 08-07-2020 SCRN MAMM (CAD)W/STEFFI BILAT Comments: See Note; NOTES: [facility] [address] [place] [address] SCRN MAMM (CAD)W/STEFFI BILAT MR#: [id number] Acct: [id number] Name: BITA THOMPSON Rep #: [id number] : 1945 F 74 From: Hemant varma MD PCP: CLAYTON Davison Status: REG CLI Study: SCRN MAMM (CAD)W/STEFFI BILAT Date of Exam: 05/18 Exam# [id number] Ordering Dr: Dhaval Israel NP LODGING FACILITIES ATTENDANT-C MAMMOGRAPHY - BILATERAL SCREENING REASON FOR EXAM: Female, 74 years old. Routine annual screening examination. PERTINENT HISTORY: Non-contributory. TECHNIQUE: Digital bilateral breast steffi (3D mammographic acquisition) in the CC and MLO projections. 2-D mediolateral oblique (MLO) and craniocaudad (CC) views of both breasts were obtained. CAD: Full Field Digital Mammography with Computer Added Detection was performed. COMPARISON: Comparison is made with prior outside examination dated 07/12/2019. FINDINGS: Breast Composition: The breasts are heterogeneously dense, which may obscure small masses. There are no dominant masses or suspicious calcifications. Again, there is a breast asymmetry with more breast tissue is seen in the upper outer quadrant of the right breast as compared to the left side. This is unchanged. Stable small benign appearing bilateral axillary lymph nodes. No other significant abnormalities are identified. There has been no significant change since the prior study. BI/SCRN MAMM (CAD)W/STEFFI BILAT IMPRESSION: Stable bilateral screening mammogram. Yearly follow-up mammogram recommended. (A) ASSESSMENT CATEGORY: BIRADS Category 2: Benign. A letter regarding these results will be sent to the patient by the facility within 30 days. Approximately 10% of breast cancers are not detected by mammography. A normal mammogram should not delay biopsy of a clinically suspicious abnormality. [id number] Electronically Signed: Hemant Meneses MD at 15:43 EDT , Service support , CC: CLAYTON Israel Licensed Club Manager: Signed Dhaval Israel CNP Work Phone: Start: 03-04-2015 Rods source (physical object) TORSTEN AYALA MD Comment on above: Rods placed in back in 2015, for herniat ed disc. Cataract Surgery Killian Kvng s SECURITIES ADVISER Comment on above: 2017 Cataract Surgery Killian Kvng s SECURITIES ADVISER Comment on above: 2017 Cataract Surgery Killian Kvng s SECURITIES ADVISER Comment on above: 2017 Cataract Surgery Killian Kvng s SECURITIES ADVISER Comment on above: 2017 Cataract Surgery Killian Kvng s SECURITIES ADVISER Comment on above: 2018 Cataract Surgery Ann-Marie Grav ius CAR ESCORT Comment on above: 2017 Cataract Surgery Killian Kvng s SECURITIES ADVISER Comment on above: 2017 Cataract Surgery Sasha Roland lu CAR ESCORT Comment on above: 2017 Cataract Surgery Aster casarez SECURITIES ADVISER Comment on above: 2017 Cataract Surgery Kayela Radf ord CAR ESCORT Comment on above: 2017 Cataract Surgery Ann-Marie Grav ius CAR ESCORT Comment on above: 2018 Cataract Surgery Stacie Slar b SECURITIES ADVISER Comment on above: 2017 Cataract Surgery Kayela Radf ord CAR ESCORT Comment on above: 2017 Cataract Surgery Ann-Marie Grav ius CAR ESCORT Comment on above: 2018 Cataract Surgery Kayela Radf ord CAR ESCORT Comment on above: 2017 Cataract Surgery Kayela Radf ord CAR ESCORT Comment on above: 2017 Cataract Surgery Yajaira lorenz MA Comment on above: 2017 Cataract Surgery Kayela Radf ord CAR ESCORT Comment on above: 2017 Cataract Surgery Edda kaur MA Comment on above: 2017 Cataract Surgery Stacie Slar b SECURITIES ADVISER Comment on above: 2017 Cataract Surgery Sasha Man chak CAR ESCORT Comment on above: 2017 Cataract Surgery Jasiel Pryo r SECURITIES ADVISER Comment on above: 2017 Cataract Surgery Jasiel Pryo r SECURITIES ADVISER Comment on above: 2017 Cataract Surgery NERYSRUTHI greer SECURITIES ADVISER Comment on above: 2017 Cataract Surgery NERY greer SECURITIES ADVISER Comment on above: 2017 section Killian Silvestrei s SECURITIES ADVISER Comment on above: 1985 section Killian Silvestrei s SECURITIES ADVISER Comment on above: 1985 section Killian Silvestrei s SECURITIES ADVISER Comment on above: 1985 section Killian Kvng s SECURITIES ADVISER Comment on above: 1985 section Killian Kvng s SECURITIES ADVISER Comment on above: 1985 section Ann-Marie Grav ius CAR ESCORT Comment on above: 1985 section Killian Kvng s SECURITIES ADVISER Comment on above: 1985 section Sasha lu CAR ESCORT Comment on above: 1985 section Aster casarez SECURITIES ADVISER Comment on above: 1985 section Kayela Radf ord CAR ESCORT Comment on above: 1985 section Ann-Marie Grav ius CAR ESCORT Comment on above: 1985 section Stacie Slar b SECURITIES ADVISER Comment on above: 1985 section Kayela Radf ord CAR ESCORT Comment on above: 1985 section Ann-Marie Grav ius CAR ESCORT Comment on above: 1985 section Kayela Radf ord CAR ESCORT Comment on above: 1985 section Kayela Radf ord CAR ESCORT Comment on above: 1985 section Yajaira lorenz MA Comment on above: 1985 section Kayela Radf ord CAR ESCORT Comment on above: 1985 section Edda kaur MA Comment on above: 1985 section Stacie Slar b SECURITIES ADVISER Comment on above: 1985 section Sasha Roland lu CAR ESCORT Comment on above: 1985 section Jasiel Pryo r SECURITIES ADVISER Comment on above: 1985 section Jasiel Pryo r SECURITIES ADVISER Comment on above: 1985 section NERY Ignacio greer SECURITIES ADVISER Comment on above: 1985 section NERY greer SECURITIES ADVISER Comment on above: 1985 Cholecystectomy TORSTEN Sheldon Colon/Rectal Surgery Killian Oliveira SECURITIES ADVISER Comment on above: 2019 Colon/Rectal Surgery Killian Oliveira SECURITIES ADVISER Comment on above: 2019 Colon/Rectal Surgery Killian Oliveira SECURITIES ADVISER Comment on above: 2019 Colon/Rectal Surgery Killian Oliveira SECURITIES ADVISER Comment on above: 2019 Colon/Rectal Surgery Killian Oliveira SECURITIES ADVISER Comment on above: 2019 Colon/Rectal Surgery Ann-Marie Gravius CAR ESCORT Comment on above: 2019 Colon/Rectal Surgery Killian Oliveira SECURITIES ADVISER Comment on above: 2019 Colon/Rectal Surgery Sasha Carol CAR ESCORT Comment on above: 2019 Colon/Rectal Surgery Aster hill SECURITIES ADVISER Comment on above: 2019 Colon/Rectal Surgery Danoa Rocio CAR ESCORT Comment on above: 2019 Colon/Rectal Surgery Ann-Marie Gravius CAR ESCORT Comment on above: 2019 Colon/Rectal Surgery Stacie Slarb SECURITIES ADVISER Comment on above: 2019 Colon/Rectal Surgery Kayela Peterson CAR ESCORT Comment on above: 2019 Colon/Rectal Surgery Ann-Marie Gravius CAR ESCORT Comment on above: 2019 Colon/Rectal Surgery Kayela Rocio CAR ESCORT Comment on above: 2019 Colon/Rectal Surgery Kayela Peterson CAR ESCORT Comment on above: 2019 Colon/Rectal Surgery Yajaira Torres MA Comment on above: 2019 Colon/Rectal Surgery Kayela Peterson CAR ESCORT Comment on above: 2019 Colon/Rectal Surgery Edda Saldivar MA Comment on above: 2019 Colon/Rectal Surgery Stacie Slarb SECURITIES ADVISER Comment on above: 2019 Colon/Rectal Surgery Sasha Carol CAR ESCORT Comment on above: 2019 Colon/Rectal Surgery Jasiel Antony SECURITIES ADVISER Comment on above: 2019 Colon/Rectal Surgery Jasiel Bayside SECURITIES ADVISER Comment on above: 2019 Colon/Rectal Surgery NERY Cristobal SECURITIES ADVISER Comment on above: 2019 Colon/Rectal Surgery NERY Cristobal SECURITIES ADVISER Comment on above: 2019 D&C Killian Tee LP N Comment on above: 1972 D&C Killian Tee LP N Comment on above: 1972 D&C Killian Tee LP N Comment on above: 1972 D&C Killian Tee LP N Comment on above: 1972 D&C Killian Tee LP N Comment on above: 1972 D&C Ann-Marie Gravius CAR ESCORT Comment on above: 1972 D&C Killian Tee LP N Comment on above: 1972 D&C Sasha Manchak CAR ESCORT Comment on above: 1972 D&C Aster Malcolm L PN Comment on above: 1972 D&C Kayela Peterson CAR ESCORT Comment on above: 1972 D&C Ann-Marie Gravius CAR ESCORT Comment on above: 1972 D&C Stacie Slarb LP N Comment on above: 1972 D&C Kayela Peterson CAR ESCORT Comment on above: 1972 D&C Ann-Marie Gravius CAR ESCORT Comment on above: 1972 D&C Kayela Rocio CAR ESCORT Comment on above: 1972 D&C Kayela Peterson CAR ESCORT Comment on above: 1972 D&C Yajaira Torres MA Comment on above: 1972 D&C Kayela Rocio CAR ESCORT Comment on above: 1972 D&C Edda Lemus Comment on above: 1972 D&C Stacie Slarb LP N Comment on above: 1972 D&C Sasha Manchak CAR ESCORT Comment on above: 1972 D&C Jasiel Bays[place] LP N Comment on above: 1972 D&C Jasiel [place] LP N Comment on above: 1972 D&C NERY Cristobal SECURITIES ADVISER Comment on above: 1972 D&C NERY Cristobal SECURITIES ADVISER Comment on above: 1973 Fracture dislocation of elbow joint (disorder) TORSTEN AYALA MD Fracture of bone of nasal sinus (disorder) TORSTEN AYALA MD Gallbladder removal Killian lirianos SECURITIES ADVISER Comment on above: 2019 Gallbladder removal Killian Sheldon cash SECURITIES ADVISER Comment on above: 2019 Gallbladder removal Killian Sheldon cash SECURITIES ADVISER Comment on above: 2019 Gallbladder removal Killian Sheldon cash SECURITIES ADVISER Comment on above: 2019 Gallbladder removal Killian Sheldon cash SECURITIES ADVISER Comment on above: 2019 Gallbladder removal Ann-Marie G nickyius CAR ESCORT Comment on above: 2019 Gallbladder removal Killian Sheldon cash SECURITIES ADVISER Comment on above: 2019 Gallbladder removal Sasha Sylviek CAR ESC[employer] Comment on above: 2019 Gallbladder removal Aster westfall SECURITIES ADVISER Comment on above: 2019 Gallbladder removal Kavinniea Latonia goodman [employer] ESC[employer] Comment on above: 2019 Gallbladder removal Ann-Marie G martin CAR ESC[employer] Comment on above: 2019 Gallbladder removal Stacie S larb SECURITIES ADVISER Comment on above: 2019 Gallbladder removal Kavinniea Latonia goodman CAR ESC[employer] Comment on above: 2019 Gallbladder removal Ann-Marie G martin CAR ESCORT Comment on above: 2019 Gallbladder removal Kayela R adford CAR ESCORT Comment on above: 2019 Gallbladder removal Kayela R maxine CAR ESC[employer] Comment on above: 2019 Gallbladder removal Yajaira self MA Comment on above: 2019 Gallbladder removal Kayela R maxine [facility] Comment on above: 2019 Gallbladder removal Edda figueroa MA Comment on above: 2019 Gallbladder removal Stacie S larb SECURITIES ADVISER Comment on above: 2019 Gallbladder removal Sasha Sylviek [employer] ESC[employer] Comment on above: 2019 Gallbladder removal Jasiel P ryor SECURITIES ADVISER Comment on above: 2019 Gallbladder removal Jasiel P ryor SECURITIES ADVISER Comment on above: 2019 Gallbladder removal NERY R ussell SECURITIES ADVISER Comment on above: 2019 Gallbladder removal NERY R ussell SECURITIES ADVISER Comment on above: 2019 H/O splenectomy H/O splenectomy Zara Pod logar DEFENSE ANALYST.VP CLINICAL Work Phone: Hip 2020 Killian Oliveira LP N Hip 2020 Killian Oliveira LP N Hip 2020 Killian Oliveira LP N Hip 2020 Killian Oliveira LP N Hip 2020 Killian Oliveira LP N Hip 2020 Ann-Marie Gravius [employer] ESC[employer] Hip 2020 Killian Oliveira LP N Hip 2020 Sasha Sylviek CAR ESC[employer] Hip 2020 Aster Rodriguez PN Hip 2020 Kayela Rocio CAR ESCORT Hip 2021 Ann-Marie Gravius [employer] ESC[employer] Hip 2021 Stacie Slarb LP N Hip 2021 Kayela Peterson CAR ESCORT Hip 2021 Ann-Marie Gravius CAR ESC[employer] Hip 2021 Kayela Rocio CAR ESCORT Hip 2021 Kayela Peterson CAR ESC[employer] Hip 2021 Yajaira Torres MA Hip 2021 Kayela Peterson CAR ESC[employer] Hip 2021 Edda Domínguez A Hip 2021 Stacie Slarb LP N Hip 2021 Sasha Manchak CAR ESCORT Hip 2021 Jasiel Bayside LP N Hip 202 Jasiel Antony LP N Hip 2021 NERY Cristobal SECURITIES ADVISER Hip 2021 NERY Cristobal SECURITIES ADVISER Hysterectomy Killian Tee LP N Comment on above: 1997 Hysterectomy Killian Tee LP N Comment on above: 1997 Hysterectomy Killian Tee LP N Comment on above: 1997 Hysterectomy Killian Tee LP N Comment on above: 1997 Hysterectomy Killian Tee LP N Comment on above: 1997 Hysterectomy Ann-Marie Gravius CAR ESC[employer] Comment on above: 1997 Hysterectomy Killian Tee LP N Comment on above: 1997 Hysterectomy Sasha Manchak CAR ESCORT Comment on above: 1997 Hysterectomy Aster Malcolm L PN Comment on above: 1997 Hysterectomy Kayela Peterson CAR ESCORT Comment on above: 1997 Hysterectomy Ann-Marie Gravius CAR ESCORT Comment on above: 1997 Hysterectomy Stacie Slarb LP N Comment on above: 1997 Hysterectomy Kayela Peterson CAR ESCORT Comment on above: 1997 Hysterectomy Ann-Marie Gravius CAR ESCORT Comment on above: 1997 Hysterectomy Kayela Rocio CAR ESCORT Comment on above: 1997 Hysterectomy Kayela Peterson CAR ESCORT Comment on above: 1997 Hysterectomy Yajaira Torres MA Comment on above: 1997 Hysterectomy Kayela Peterson CAR ESCORT Comment on above: 1997 Hysterectomy Edda Domínguez A Comment on above: 1997 Hysterectomy Stacie Slarb LP N Comment on above: 1997 Hysterectomy Sasha Manchak CAR ESCORT Comment on above: 1997 Hysterectomy Jasiel Antony LP N Comment on above: 1997 Hysterectomy Jasiel Antony LP N Comment on above: 1997 Hysterectomy NERY Cristobal SECURITIES ADVISER Comment on above: 1997 Hysterectomy NERY Cristobal SECURITIES ADVISER Comment on above: 1997 Hysterectomy TORSTEN AYALA MD Idiopathic thrombocytopenic purpura (disorder) TORSTEN AYALA MD Comment on above: PATIENT STATED I CANNOT TAKE ANY BLOOD THINNER MEDICATIONS, BECAUSE I HAVE ITP (immune thrombocytopenia purpura) Kidney/Bladder Killian Oliveira LPN Comment on above: 1996 and 2017 Kidney/Bladder Killian Tee SECURITIES ADVISER Comment on above: 1996 and 2017 Kidney/Bladder Killian Tee SECURITIES ADVISER Comment on above: 1996 and 2017 Kidney/Bladder Killian Tee SECURITIES ADVISER Comment on above: 1996 and 2017 Kidney/Bladder Killian Tee SECURITIES ADVISER Comment on above: 1996 and 2017 Kidney/Bladder Ann-Marie Graviu s CAR ESC[employer] Comment on above: 1996 and 2017 Kidney/Bladder Killian Tee SECURITIES ADVISER Comment on above: 1996 and 2017 Kidney/Bladder Sasha Manch ak CAR ESCORT Comment on above: 1996 and 2017 Kidney/Bladder Aster Gold SECURITIES ADVISER Comment on above: 1996 and 2017 Kidney/Bladder Kayela Radfor d CAR ESCORT Comment on above: 1996 and 2017 Kidney/Bladder Ann-Marie Graviu s CAR ESCORT Comment on above: 1996 and 2017 Kidney/Bladder Stacie Slarb SECURITIES ADVISER Comment on above: 1996 and 2017 Kidney/Bladder Kayela Radfor d CAR ESCORT Comment on above: 1996 and 2017 Kidney/Bladder Ann-Marie Graviu s CAR ESCORT Comment on above: 1996 and 2017 Kidney/Bladder Kayela Radfor d CAR ESCORT Comment on above: 1996 and 2017 Kidney/Bladder Kayela Radfor d CAR ESCORT Comment on above: 1996 and 2017 Kidney/Bladder Yajaira Torres MA Comment on above: 1996 and 2017 Kidney/Bladder Kayela Radfor d CAR ESC[employer] Comment on above: 1996 and 2017 Kidney/Bladder Edda Saldivar MA Comment on above: 1996 and 2017 Kidney/Bladder Stacie Slarb SECURITIES ADVISER Comment on above: 1996 and 2017 Kidney/Bladder Sasha Manch ak CAR ESCORT Comment on above: 1996 and 2017 Kidney/Bladder Jasiel Antony SECURITIES ADVISER Comment on above: 1996 and 2017 Kidney/Bladder Jasiel Bayside SECURITIES ADVISER Comment on above: 1996 and 2017 Kidney/Bladder NERY Kam l SECURITIES ADVISER Comment on above: 1996 and 2017 Kidney/Bladder NERY Kam l SECURITIES ADVISER Comment on above: 1996 and 2017 Splenectomy Killian Tee LP N Comment on above: 1970 Splenectomy Killian Tee LP N Comment on above: 1970 Splenectomy Killian Tee LP N Comment on above: 1970 Splenectomy Killian Tee LP N Comment on above: 1970 Splenectomy Killian Tee LP N Comment on above: 1970 Splenectomy Ann-Marie Gravius CAR ESCORT Comment on above: 1970 Splenectomy Killian Tee LP N Comment on above: 1969 Splenectomy Sasha Manchak CAR ESCORT Comment on above: 1969 Splenectomy Aster Gold L PN Comment on above: 1969 Splenectomy Kayela Rocio CAR ESCORT Comment on above: 1969 Splenectomy Ann-Marie Gravius CAR ESCORT Comment on above: 1969 Splenectomy Stacie Slarb LP N Comment on above: 1969 Splenectomy Kayela Peterson CAR ESCORT Comment on above: 1969 Splenectomy Ann-Marie Gravius CAR ESCORT Comment on above: 1969 Splenectomy Kayela Peterson CAR ESCORT Comment on above: 1969 Splenectomy Kayela Rocio CAR ESCORT Comment on above: 1969 Splenectomy Yajaira Brian KWON Comment on above: 1969 Splenectomy Kayela Peterson CAR ESCORT Comment on above: 1969 Splenectomy Edda Lemus Comment on above: 1969 Splenectomy Stacie Slarb LP N Comment on above: 1969 Splenectomy Sasha Manchak CAR ESCORT Comment on above: 1969 Splenectomy Jasiel Antony LP N Comment on above: 1969 Splenectomy Jasiel Antony LP N Comment on above: 1969 Splenectomy NERY Cristobal SECURITIES ADVISER Comment on above: 1969 Splenectomy NERY Cristobal SECURITIES ADVISER Comment on above: 1969 Splenectomy TORSTEN AYALA MD Urine culture Dr. Brandt Woods ddour Work Phone: Plan of Treatment Date Care Activity Detail Author Start: 06-14-2027 Diabetes Screening Diabetes Screening [facility] Start: 01-02-2027 Diabetes Screening Diabetes Screening [facility] Start: 06-13-2025 Creatinine measurement Serum Creatinine [facility] Start: 06-06-2025 Annual PCP Team Chronic Disease Visit Annual PCP Team Chronic Disease Visit [facility] Start: 02-14-2025 End: 02-14-2025 Patient encounter procedure 02/14/2025 9:15 AM EST Office Visit General Surgery [address] [place] [address] Nelson Torrez MD [address] [place], [place] [id number] 6 month f/u-Discuss Basal cell Excision area previously removed General Surgery Comment on above: 6 month f/u-Discuss Basal cell Excision area previously removed Start: 01-04-2025 Annual PCP Team Chronic Disease Visit Annual PCP Team Chronic Disease Visit [facility] Start: 01-02-2025 Annual PCP Team Chronic Disease Visit Annual PCP Team Chronic Disease Visit [facility] Start: 01-02-2025 Complete blood count Hemoglobin/Hematocrit [facility] Start: 01-02-2025 Creatinine measurement Serum Creatinine [facility] Start: 12-06-2024 End: 12-06-2024 Patient encounter procedure [facility] [place] Comment on above: 6 month follow up Start: 10-29-2024 Influenza vaccination [facility] Start: 09-21-2024 End: 09-21-2024 Patient encounter procedure 09/21/2024 12:30 PM EDT Appointment [facility] [address] [place] [address] Enmanuel Lockwood MD [address] [place] [address] [place], [place] [id number] [facility] Start: 08-22-2024 End: 08-22-2024 Patient encounter procedure 08/22/2024 11:00 AM EDT Office Visit General Surgery [address] [place] [address] Nelson Torrez MD [address] [place] [address] Discuss Basal cell Excision area previously removed bjs General Surgery Comment on above: Discuss Basal cell Excision area previou sly removed bjs Start: 08-02-2024 End: 08-02-2024 Patient encounter procedure 08/02/2024 12:15 PM EDT Office Visit General Surgery [address] [place] [address] Nelson Torrez MD [address] [place] [address] Discuss Basal cell Excision area previously removed bjs General Surgery Comment on above: Discuss Basal cell Excision area previou sly removed bjs Start: 07-20-2024 End: 07-20-2024 Patient encounter procedure 07/20/2024 12:00 PM EDT [facility]ointment [facility] [address] [place] [address] Enmanuel Lockwood MD [address] [place] [address] [place] [address] [facility] Start: 06-06-2024 End: 06-06-2024 Patient encounter procedure 06/06/2024 2:40 PM EDT Office Visit Family Medicine [facility] [address] [facility] [place] [id number] Zara Galloway APRN.VP CLINICAL [address] [place] [address] Establish Care [facility] Comment on above: Establish Care Start: 06-06-2024 End: 09-05-2024 Comprehensive metabolic 2000 panel - Serum or Plasma COMPREHENSIVE METABOLIC PANEL Lab Routine Hypertension, essential Expected: 06/06/2024, Expires: 09/05/2024 [facility] Work Phone: Comment on above: Expected: 06/06/2024, Expires: Start: 06-06-2024 End: 09-05-2024 Lipid 1996 panel - Serum or Plasma LIPID PANEL, FASTING Lab Routine Mixed hyperlipidemia Expected: 06/06/2024, Expires: 09/05/2024 [facility] Comment on above: Expected: 06/06/2024, Expires: Start: 05-25-2024 End: 05-25-2024 Patient encounter procedure 05/25/2024 11:00 AM EDT Appointment [facility] [address] [place] [address] [facility] Start: 04-19-2024 End: 04-19-2024 Patient encounter procedure General Surgery Comment on above: Request by doctor for two month follow u p Start: 03-21-2024 End: 03-21-2024 Patient encounter procedure 03/21/2024 1:00 PM EST Office Visit General Surgery [address] [place] [address] Nelson Torrez MD [address] [place] [address] wider excision General Surgery Comment on above: wider excision Start: 03-14-2024 End: 03-14-2024 Patient encounter procedure 03/14/2024 1:00 PM EST Office Visit [facility] [place] [facility] [address], [facility] [address] [place] [address] Enmanuel Lockwood MD [address] [facility] [address] [address] [place] [address] colonscopy [facility] [place] [facility] Comment on above: colonscopy Start: 02-29-2024 Advance Directive Discussion Advance Directive Discussion [facility] Start: 02-27-2024 End: 02-27-2024 Nursing evaluation of patient and report 02/27/2024 11:00 AM EST Nurse Visit General Surgery [address] [place] [address] Wstr, Nurse [facility] [address] [place] [address] SUTURE REMOVAL General Surgery Comment on above: SUTURE REMOVAL Start: 02-15-2024 End: 02-15-2024 Patient encounter procedure 02/15/2024 2:15 PM EST Office Visit General Surgery [address] [place] [address] Nelson Torrez MD [address] [place] [address] REMOVAL CYST UNDER RT ARM / LUMP LFT ARM General Surgery Comment on above: REMOVAL CYST UNDER RT ARM / LUMP LFT ARM Start: 01-18-2024 End: 01-18-2024 Patient encounter procedure 01/18/2024 3:45 PM EST Office Visit General Surgery [address] [place] [address] Nelson Torrez MD [address] [address] Skin cyst [L72.9] General Surgery Comment on above: Skin cyst [L72.9] Start: 01-03-2024 End: 04-03-2024 C reactive protein [Mass/volume] in Serum or Plasma [facility] Comment on above: Expected: 01/03/2024, Expires: Start: 01-03-2024 End: 04-03-2024 Lipase [Enzymatic activity/volume] in Serum or Plasma [facility] Work Phone: Comment on above: Expected: 01/03/2024, Expires: 5 Start: 10-30-2023 Covid-19 Vaccine ( season) Covid-19 Vaccine () [facility] Start: 10-30-2023 Influenza vaccination Influenza Vaccine (#1) [facility] Start: 04-19-2023 Patient referral [facility] Work Phone: Start: 03-31-2023 [facility] Start: 03-31-2023 [facility] Start: 03-17-2023 Patient referral [facility] Work Phone: Start: 02-28-2023 Advance Directive Discussion Advance Directive Discussion [facility] Start: 02-16-2023 Patient referral [facility] Work Phone: Start: 11-25-2022 Procedure Education Eprescribed prescriptions (G8553) [facility] Work Phone: Start: 11-25-2022 Provider Instructions for Treatment [facility] Work Phone: Start: 11-10-2022 Procedure Education Eprescribed prescriptions (G8553) [facility] Work Phone: Start: 11-10-2022 Provider Instructions for Treatment [facility] Work Phone: Start: 10-28-2022 Provider Instructions for Treatment Shave Biopsy with Epi [facility] Work Phone: Start: 10-27-2022 Procedure Education Eprescribed prescriptions (G8553) [facility] Work Phone: Start: 10-15-2022 Procedure Education Eprescribed prescriptions (G8553) [facility] Work Phone: Start: 10-15-2022 Provider Instructions for Treatment [facility] Work Phone: Start: 10-15-2022 Potassium serum plasma/whole blood POTASSIUM SERUM (57785) [facility] Work Phone: Start: 08-23-2022 Patient Education Laryngitis [facility]; [facility] Work Phone: Start: 08-23-2022 Procedure Education Eprescribed prescriptions (G8553) [facility] Work Phone: Start: 08-02-2022 Procedure Education Eprescribed prescriptions (G8553) [facility] Work Phone: Start: 06-14-2022 Meningococcal Conjugate Vaccine (3 - Risk 2-dose series) Meningococcal Conjugate Vaccine (3 - Risk 2-dose series) [facility] Start: 04-16-2022 Procedure Education Eprescribed prescriptions (G8553) [facility] Work Phone: Start: 04-16-2022 Provider Instructions for Treatment [facility] Work Phone: Start: 04-16-2022 Blood count complete auto&auto difrntl wbc CBC W/AUTO DIFF WBC (61233) [facility] Work Phone: Start: 04-16-2022 Comprehensive metabolic panel METABOLIC PANEL, COMPREHENSIVE (14862) [facility]; [facility] Work Phone: Start: 04-16-2022 Lipid panel LIPID PANEL (40439) [facility]; [facility] Work Phone: Start: 04-07-2022 Procedure Education Eprescribed prescriptions (G8553) [facility]; [facility] Work Phone: Start: 03-19-2022 Blood count complete auto&auto difrntl wbc CBC, Platelets & Auto Diff (24940) [facility]; [facility] Work Phone: Start: 03-19-2022 Procedure Education Eprescribed prescriptions (G8553) [facility]; [facility] Work Phone: Start: 03-19-2022 Provider Instructions for Treatment Follow up if no improvement or if symptoms worsen [facility]; [facility] Work Phone: Start: 02-20-2022 [facility] Start: 12-30-2021 Procedure Education Eprescribed prescriptions (G8553) [facility]; [facility] Work Phone: Start: 12-30-2021 Provider Instructions for Treatment [facility] Work Phone: Start: 12-14-2021 Procedure Education Eprescribed prescriptions (G8553) [facility]; [facility] Work Phone: Start: 12-14-2021 Provider Instructions for Treatment [facility] Work Phone: Start: 12-14-2021 C-reactive protein C-REACTIVE PROTEIN (03119) [facility]; [facility] Work Phone: Start: 12-14-2021 Assay of thyroid stimulating hormone tsh TSH (THYROID STIMULATING HORMONE) (71764) [facility]; [facility] Work Phone: Start: 12-14-2021 25 hydroxy includes fractions if performed CALCIFEDIOL (74883) [facility] Work Phone: Start: 12-14-2021 Urine albumin quantitative MICROALBUMIN: CREATININE RATIO (72773) AND (21691) [facility]; [facility] Work Phone: Start: 12-14-2021 Comprehensive metabolic panel METABOLIC PANEL, COMPREHENSIVE (92063) [facility]; [facility] Work Phone: Start: 12-14-2021 Lipid panel LIPID PANEL (85542) [facility]; [facility] Work Phone: Start: 12-14-2021 Blood count complete auto&auto difrntl wbc CBC with auto diff (80198) [facility]; [facility] Work Phone: Start: 11-30-2021 C-reactive protein C-REACTIVE PROTEIN (62681) [facility]; [facility] Work Phone: Start: 11-30-2021 Sedimentation rate rbc non-automated ESR-F (SED RATE ERYTHROCYTE - FEMALE) (27369) [facility]; [facility] Work Phone: Start: 11-30-2021 Assay of lipase LIPASE (34622) [facility]; [facility] Work Phone: Start: 11-30-2021 Assay of amylase AMYLASE (64612) [facility]; [facility] Work Phone: Start: 11-13-2021 Procedure Education Eprescribed prescriptions (G8553) [facility]; [facility] Work Phone: Start: 11-13-2021 Provider Instructions for Treatment Reviewed Diagnostic Tests [facility]; [facility] Work Phone: Start: 10-29-2021 Influenza vaccination INFLUENZA (#1) [facility] Start: 10-19-2021 Procedure Education Eprescribed prescriptions (G8553) [facility]; [facility] Work Phone: Start: 10-19-2021 Provider Instructions for Treatment [facility]; [facility] Work Phone: Start: 10-14-2021 [facility] Work Phone: Start: 10-01-2021 Assay of magnesium MAGNESIUM (05027) [facility]; [facility] Work Phone: Start: 10-01-2021 Potassium serum plasma/whole blood POTASSIUM SERUM (27677) [facility]; [facility] Work Phone: Start: 09-30-2021 Basic metabolic panel calcium total Metabolic Panel, Basic (35517) [facility]; [facility] Work Phone: Start: 09-30-2021 Procedure Education Eprescribed prescriptions (G8553) [facility]; [facility] Work Phone: Start: 09-30-2021 Provider Instructions for Treatment [facility]; [facility] Work Phone: Start: 09-23-2021 Patient discharge [facility] Work Phone: Start: 09-22-2021 Following clinical pathway protocol [facility] Work Phone: Start: 09-22-2021 Admission procedure [facility] Work Phone: Start: 09-22-2021 Oxygen therapy [facility] Work Phone: Start: 09-21-2021 Following clinical pathway protocol [facility] Work Phone: Start: 09-21-2021 Ambulation without limitation [facility] Work Phone: Start: 09-21-2021 Assessment of risk of venous thromboembolism [facility] Work Phone: Start: 09-21-2021 Insertion of catheter into peripheral vein [facility] Work Phone: Start: 09-21-2021 Providing care according to standard [facility] Work Phone: Start: 09-21-2021 [facility] Work Phone: Start: 09-21-2021 Verification routine [facility] Work Phone: Start: 09-21-2021 Admission procedure [facility] Work Phone: Start: 09-21-2021 [facility] Work Phone: Start: 09-21-2021 [facility] Work Phone: Start: 09-15-2021 Procedure Education Eprescribed prescriptions (G8553) [facility]; [facility] Work Phone: Start: 09-15-2021 Culture bct isol&prsmptv id isolate ea urine URINE DAVID CULTURE-IDENTIFICATN (88941) [facility]; [facility] Work Phone: Start: 08-27-2021 Procedure Education Eprescribed prescriptions (G8553) [facility]; [facility] Work Phone: Start: 08-12-2021 Procedure Education Eprescribed prescriptions (G8553) [facility]; [facility] Work Phone: Start: 08-12-2021 Provider Instructions for Treatment [facility]; [facility] Work Phone: Start: 08-12-2021 Hemoglobin glycosylated a1c HgA1C , Office (92613) [facility]; [facility] Work Phone: Start: 07-03-2021 Procedure Education Eprescribed prescriptions (G8553) [facility]; [facility] Work Phone: Start: 05-27-2021 Procedure Education Eprescribed prescriptions (G8553) [facility] Work Phone: Start: 05-18-2021 Provider Instructions for Treatment Follow up in 10 days [facility] Work Phone: Start: 05-13-2021 Procedure Education Eprescribed prescriptions (G8553) [facility] Work Phone: Start: 05-06-2021 Procedure Education Eprescribed prescriptions (G8553) [facility] Work Phone: Start: 05-06-2021 Provider Instructions for Treatment [facility] Work Phone: Start: 05-06-2021 Comprehensive metabolic panel Metabolic Panel, Comprehensive (26330) [facility] Work Phone: Comment on above: 05-07-21 Start: 05-06-2021 Blood count complete automated CBC & PLATELETS (AUTO) (79364) [facility]; [facility] Work Phone: Comment on above: 05-07-21 Start: 05-06-2021 Assay of thyroid stimulating hormone tsh TSH (THYROID STIMULATING HORMONE) (65098) [facility]; [facility] Work Phone: Comment on above: 05-07-21 Start: 05-06-2021 Hemoglobin glycosylated a1c HGB A1C (42420) [facility]; [facility] Work Phone: Comment on above: 05-07-21 Start: 04-08-2021 Procedure Education Eprescribed prescriptions (G8553) [facility]; [facility] Work Phone: Start: 04-08-2021 Provider Instructions for Treatment Reviewed Lab [facility]; [facility] Work Phone: Start: 04-07-2021 Culture bacterial quanttative colony count urine URINE DAVID CULTURE (JASON COL COUNT) (64613) [facility]; [facility] Work Phone: Start: 03-20-2021 Procedure Education Eprescribed prescriptions (G8553) [facility]; [facility] Work Phone: Start: 03-20-2021 Provider Instructions for Treatment Follow up in 3 months front maker lockstitch to call to set up apt [facility]; [facility] Work Phone: Start: 03-18-2021 Procedure Education Eprescribed prescriptions (G8553) [facility]; [facility] Work Phone: Start: 03-18-2021 Provider Instructions for Treatment [facility]; [facility] Work Phone: Start: 03-18-2021 COVID 19 (ONLY) RAPID (56676) COVID 19 (ONLY) RAPID (42077) [facility]; [facility] Work Phone: Comment on above: our office Start: 03-18-2021 Iaadiadoo influenza 2019 Novel Coronavirus (COVID-19), [place] (56643) [facility]; [facility] Work Phone: Comment on above: our office Start: 03-18-2021 Comprehensive metabolic panel Metabolic Panel, Comprehensive (02923) [facility]; [facility] Work Phone: Start: 03-18-2021 Fibrin dgradj products d-dimer quantitative D-Dimer (60257) [facility]; [facility] Work Phone: Start: 03-18-2021 Blood count complete auto&auto difrntl wbc CBC, Platelets & Auto Diff (38425) [facility]; [facility] Work Phone: Start: 03-09-2021 COVID-19 VACCINE (4 - Booster for Moderna series) COVID-19 VACCINE (4 - Booster for Moderna series) [facility] Start: 02-28-2021 ADVANCE DIRECTIVE DISCUSSION ADVANCE DIRECTIVE DISCUSSION [facility] Start: 02-28-2021 DEPRESSION ASSESSMENT DEPRESSION ASSESSMENT [facility] Start: 02-06-2021 Procedure Education Eprescribed prescriptions (G8553) [facility]; [facility] Work Phone: Start: 02-06-2021 Provider Instructions for Treatment Follow up in 3 months [facility]; [facility] Work Phone: Start: 10-29-2020 Blood count complete auto&auto difrntl wbc CBC, Platelets & Auto Diff (94710) [facility]; [facility] Work Phone: Start: 10-29-2020 Comprehensive metabolic panel Metabolic Panel, Comprehensive (79410) [facility]; [facility] Work Phone: Start: 10-06-2020 Procedure Education Eprescribed prescriptions (G8553) [facility]; [facility] Work Phone: Start: 10-06-2020 Provider Instructions for Treatment [facility]; [facility] Work Phone: Start: 2020 RSV Vaccine (1 - 1-dose 75+ series) RSV Vaccine (1 - 1-dose 75+ series) [facility] Start: 07-29-2020 Procedure Education Eprescribed prescriptions (G8553) [facility]; [facility] Work Phone: Start: 07-29-2020 Provider Instructions for Treatment [facility]; [facility] Work Phone: Start: 07-16-2020 Potassium serum plasma/whole blood POTASSIUM SERUM (71431) [facility]; [facility] Work Phone: Start: 07-15-2020 Procedure Education Eprescribed prescriptions (G8553) [facility]; [facility] Work Phone: Start: 07-15-2020 Provider Instructions for Treatment [facility]; [facility] Work Phone: Start: 07-15-2020 Blood count complete auto&auto difrntl wbc CBC, Platelets & Auto Diff (14945) [facility]; [facility] Work Phone: Start: 07-15-2020 Comprehensive metabolic panel Metabolic Panel, Comprehensive (64299) [facility]; [facility] Work Phone: Start: 08-29-2019 Shingrix Vaccine (2 of 3) Shingrix Vaccine (2 of 3) [facility] Start: 04-08-2018 Meningococcal B Vaccine (3 of 5 - Increased Risk Trumenba 3-dose series) Meningococcal B Vaccine (3 of 5 - Increased Risk Trumenba 3-dose series) [facility] Start: 04-08-2018 Meningococcal B Vaccine: Consider Based On Risk (3 of 5 - Increased Risk Trumenba 3-dose series) Meningococcal B Vaccine: Consider Based On Risk (3 of 5 - Increased Risk Trumenba 3-dose series) [facility] Start: 03-04-2018 Urine microalbumin profile DTaP,Tdap,Td Vaccine (2 - Td or Tdap) [facility] Start: 2010 BONE DENSITY BONE DENSITY [facility] Start: 2010 Screening for osteoporosis Bone Density Screening [facility] Start: 07-30-2007 Medicare Annual Wellness Visit Medicare Annual Wellness Visit [facility] Start: 1990 DIABETES SCREEN DIABETES SCREEN [facility] Start: 1964 SHINGRIX VACCINE (1 of 2) SHINGRIX VACCINE (1 of 2) [facility] Start: 1964 Urine microalbumin profile [facility] Start: 10-05-1963 ANNUAL PCP TEAM CHRONIC DISEASE VISIT ANNUAL PCP TEAM CHRONIC DISEASE VISIT [facility] Start: 10-05-1963 Anxiety Screening Anxiety Screening [facility] Start: 10-05-1963 BP CONTROLLED (<130/80) BP CONTROLLED (<130/80) [facility] in Start: 10-05-1963 Depression Screening Depression Screening [facility] Start: 10-05-1963 HEMOGLOBIN/HEMATOCRIT HEMOGLOBIN/HEMATOCRIT [facility] Start: 10-05-1963 HEPATITIS C SCREENING HEPATITIS C SCREENING [facility] Start: 10-05-1963 Hepatitis C screening Hepatitis C Screening [facility] Start: 10-05-1963 SERUM CREATININE SERUM CREATININE [facility] Start: 10-05-1955 MENINGOCOCCAL B: Consider based on risk (1 of 4 - Increased Risk Bexsero 2-dose series) MENINGOCOCCAL B: Consider based on risk (1 of 4 - Increased Risk Bexsero 2-dose series) [facility] Start: 10-05-1951 PNEUMOCOCCAL: 65+ (1 - PCV) PNEUMOCOCCAL: 65+ (1 - PCV) [facility] Start: 01-04-1947 HIB (1 of 1 - Risk 1-dose series) HIB (1 of 1 - Risk 1-dose series) [facility] Start: 01-04-1947 Hib Vaccine (1 of 1 - Risk 1-dose series) Hib Vaccine (1 of 1 - Risk 1-dose series) [facility] Start: 05-04-1946 MENINGOCOCCAL CONJUGATE (1 - Risk start 2-23 months series) MENINGOCOCCAL CONJUGATE (1 - Risk start 2-23 months series) [facility] Bacteria identified in Urine by Culture Urine Culture [facility] Work Phone: Bfb traing w/emg&/manometry ea addl 15 min cntct BFB TRAING W/EMG&AMP;/MANOMETRY EA ADDL 15 MIN CNTCT Procedures Routine Outlet dysfunction constipation Ordered: 03/14/2024 [facility] Work Phone: Comment on above: Ordered: 03/14/2024 DXA Bone [Mass/Area] Bone density [facility] Patient Education [facility] Work Phone: Patient referral [facility] Work Phone: End: 03-14-2025 Screening colonoscopy COLONOSCOPY SCREENING Endoscopy Routine Colon cancer screening 1 Occurrences starting 03/14/2024 until 03/14/2025 [facility] Work Phone: Comment on above: 1 Occurrences starting 03/14/2024 until 03/14/2025 End: 08-14-2025 Screening colonoscopy COLONOSCOPY SCREENING Endoscopy Routine Colon cancer screening 1 Occurrences starting 08/14/2024 until 08/14/2025 [facility] Work Phone: Comment on above: 1 Occurrences starting 08/14/2024 until 08/14/2025 Serum protein electrophoresis [facility] Work Phone: [facility] Work Phone: [facility] Work Phone: [facility] Work Phone: [facility]; [facility] Work Phone: [facility] Work Phone: [facility] Work Phone: [facility] Work Phone: [facility] Work Phone: [facility] Work Phone: [facility] Work Phone: [facility] Work Phone: [facility]; [facility] Work Phone: [facility] Work Phone: [facility]; [facility] Work Phone: [facility] Immunizations Immunization Date Immunization Notes Care Provider Chriss hamlin 03-07-2023 respiratory syncytia l virus (RSV), unspecified formulation Zara Galloway DEFENSE ANALYST.VP CLINICAL Work Phone: [facility] 01-28-2021 COVID-Moderna (50 MCG/0.25 ML) Kristina Brandon DO Work Phone: [facility]; [facility] Work Phone: 01-12-2021 Covid (Moderna) Dr. Brandt Dang Work Phone: [facility] 11-29-2020 Influenza High-Dose Quadrivalent Dr. Kristina Brandon Work Phone: [facility] 11-29-2020 influenza virus vacc ine, unspecified formulation Zara Galloway DEFENSE ANALYST.VP CLINICAL Work Phone: [facility] 11-28-2020 Influenza, high dose seasonal Dr. Jaclyn Siddiqui MD Work Phone: [facility] 11-28-2020 influenza, high dose seasonal, preservative-free Dr. Brandt Dang Work Phone: [facility] 04-10-2020 COVID-19 (Moderna) Dhaval Meraz a VP CLINICAL Work Phone: [facility]; [facility] Work Phone: 03-14-2020 COVID-19 (Moderna) Dhaval Meraz a VP CLINICAL Work Phone: [facility]; [facility] Work Phone: 07-04-2019 zoster vaccine, live Dhaval Ci enzo VP CLINICAL Work Phone: [facility]; [facility] Work Phone: 05-01-2019 zoster vaccine, live Dhaval Adkins enzo VP CLINICAL Work Phone: [facility]; [facility] Work Phone: 12-12-2018 influenza, injectabl e, quadrivalent, preservative free Dr. Kristina Brandon Work Phone: [facility] 12-12-2018 influenza, seasonal, injectable Dhaval Israel VP CLINICAL Work Phone: [facility]; [facility] Work Phone: 12-12-2017 influenza, injectabl e, quadrivalent, preservative free Dr. Kristina Brandon Work Phone: [facility] 12-12-2017 influenza, seasonal, injectable Dhaval Israel VP CLINICAL Work Phone: [facility]; [facility] Work Phone: 12-06-2017 meningococcal B vacc ine, fully recombinant Dhaval Meraza VP CLINICAL Work Phone: [facility]; [facility] Work Phone: 09-28-2017 meningococcal B vacc ine, fully recombinant Dhaval Meraza VP CLINICAL Work Phone: [facility]; [facility] Work Phone: 06-14-2017 meningococcal oligosaccharide (groups A, C, Y and W-135) diphtheria toxoid conjugate vaccine (MCV4O) Dhaval Merazallan [facility] Work Phone: [facility]; [facility] Work Phone: 06-14-2017 meningococcal polysaccharide (groups A, C, Y and W-135) diphtheria toxoid conjugate vaccine (MCV4P) Dr. Kristina Brandon Work Phone: [facility] 03-14-2017 meningococcal oligosaccharide (groups A, C, Y and W-135) diphtheria toxoid conjugate vaccine (MCV4O) Dhaval Merazallan [facility] Work Phone: [facility]; [facility] Work Phone: 03-14-2017 meningococcal polysaccharide (groups A, C, Y and W-135) diphtheria toxoid conjugate vaccine (MCV4P) Dr. Kristina Brandon Work Phone: [facility] 09-10-2016 pneumococcal polysaccharide vaccine, 23 valent Dhaval Israel [facility] Work Phone: [facility]; [facility] Work Phone: 02-29-2016 pneumococcal polysaccharide vaccine, 23 valent Dhaval Israel [facility] Work Phone: [facility]; [facility] Work Phone: 11-29-2015 pneumococcal polysaccharide vaccine, [address] Brandt Dang Work Phone: [facility] 02-28-2015 pneumococcal conjuga te vaccine, 13 valent Dhaval Israel [facility] Work Phone: [facility]; [facility] Work Phone: 12-19-2014 pneumococcal conjuga te vaccine, 13 valent Dhaval Israel [facility] Work Phone: [facility]; [facility] Work Phone: 03-04-2008 tetanus toxoid, redu yasmine diphtheria toxoid, and acellular pertussis vaccine, adsorbed Zara Galloway APRN.VP CLINICAL Work Phone: [facility] Payers Date Payer Category Payer Private Health Insurance [id number] 2024 [facility] ANTHEM [place] DICARE SUPPLEMENT [id number] 2024 Unknown [id number] 2024 Unknown [id number] 2024 Self-pay [id number] 2020 Unknown 2020 Unknown [id number] 2007 Medicare [id number] 2007 Medicare [id number] 1945 Unknown [id number]. 2.716 1945 Unknown [id number] 2..840.1.271188.3.579. 2.627 Unknown [id number] 2.16.840.1.684443.3.579. 2.462 Unknown [id number] 2.16.840.1.680506.3.579. 2.462 Unknown [id number] 2.16.840.1.085167.3.579. 2.462 Unknown [id number] 2.16.840.1.861357.3.579. 2.462 Unknown [id number] 2.16.840.1.131998.3.579. 2.462 Unknown [id number] 2.16.840.1.732317.3.579. 2.462 Unknown [id number] 2.16.840.1.801884.3.579. 2.462 Unknown [id number] 2.16.840.1.428194.3.579. 2.462 Unknown [id number] 2.16.840.1.760366.3.579. 2.462 Unknown [id number] 2.16.840.1.600337.3.579. 2.462 Unknown [id number] 2.16.840.1.974570.3.579. 2.462 Unknown [id number] 2.16.840.1.700287.3.579. 2.462 Unknown [id number] 2.16.840.1.870817.3.579. 2.462 Unknown [id number] 2.16.840.1.443542.3.579. 2.462 Unknown [id number] [id number]. 2.462 Social History Date Type Detail Facility Start: 12-21-2023 End: 01-03-2024 Caffeine Use Caffeine Use [facility]; [facility] Work Phone: Comment on above: 2C/day Living Situation: Living Situation: [facility]; [facility] Work Phone: Start: 07-16-2021 End: 04-18-2023 Tobacco smoking status NHIS Unknown if ever smoked [facility] Start: 1945 Sex Assigned At Female W [facility] Start: 05-13-2020 End: 06-06-2023 Tobacco smoking status NHIS Never smoked tobacco [facility] Work Phone: Start: 05-13-2020 End: 01-03-2024 Tobacco use and exposure Smokeless tobacco non-user [facility] Work Phone: Start: 12-05-2020 End: 08-22-2024 Alcohol intake Ex-drinker (finding) [facility] Start: 1945 Sex Assigned At Not on file [facility] Start: 12-21-2023 End: 01-03-2024 Tobacco use panel [facility] Start: 04-04-2020 National Score (1-10 0), lower number is lower risk 87 [facility] Start: 01-04-2024 Gender identity Identifies as female gender (finding) [facility] Has the [employer] threatened to shut off services in your home in past 12Mo No [facility] Do you belong to any clubs or organizations such as yarsanism groups, unions, fraternal or athletic groups, or school groups? Yes [facility] Are you now , , , , never or living with a partner? [facility] How often to you hav e a drink containing alcohol? Never [facility] How hard is it for y ou to pay for the very basics like food, housing, medical care, and heating Not very hard [facility] Do you feel stress - tense, restless, nervous, or anxious, or unable to sleep at night because your mind is troubled all the time - these days [OSQ] Not at all [facility] (I/We) worried wheth er (my/our) food would run out before (I/we) got money to buy more. Never true [facility] Start: 06-11-2024 Sexual orientation Heterosexual (yusuf lugo) [facility] Sexual Orientation Nelida Krause [place] Start: 05-29-2020 Sex Female (finding) [facility] Goals Date Patient Goal Desired Activity /State Functional Status Date Assessment Result Facility 06-06-2024 Total score [AUDIT-C] 0 06/07/19 10:57 AM EDT UserIsatu [facility] 06-06-2024 Within the last year , have you been humiliated or emotionally abused in other ways by your partner or ex-partner? No 06/06/2024 10:57 AM EDT User, Isatu No [facility] 06-06-2024 Within the last year , have you been afraid of your partner or ex-partner? No 06/06/2024 10:57 AM EDT User, Isatu No [facility] 06-06-2024 Within the last year , have you been raped or forced to have any kind of sexual activity by your partner or ex-partner? No 06/06/2024 10:57 AM EDT User, Isatu No [facility] 06-06-2024 Within the last year , have you been kicked, hit, slapped, or otherwise physically hurt by your partner or ex-partner? No 06/06/2024 10:57 AM EDT User, Isatu No [facility] 06-06-2024 How often to you hav e a drink containing alcohol? Never 06/06/2024 10:57 AM EDT User, Makit Never [facility] 06-06-2024 Functional status Patient does n ot drink 06/06/2024 10:57 AM EDT User, Isatu Patient does not drink [facility] 06-06-2024 How often do you hav e 6 or more drinks on 1 occasion? Never 06/06/2024 10:57 AM EDT User, Makit Never [facility] 09-23-2021 Functional status Up ad jordan [facility] Work Phone: Mental Status Date Assessment Result Facility 02-20-2022 Cognitive function Level Of Cons ciousness Awake;Alert;Appropriate [facility] Work Phone: 09-23-2021 Cognitive function Appropriate;C ooperative;Talkat sylvia [facility] Work Phone: 08-27-2021 Cognitive function Voice/Name;To uch/Shaking;Light Pain;Deep Pain [facility] Work Phone: Clinical Notes 05-30-2020 to 12-17-2024 Note Date & Type Note Facility 12-17-2024 Progress note [facility] 12-17-2024 Progress note Note Date/Time December 18, 2024 12:58am [facility] [address] [place] [address] OFFICE VISIT Date of Service: 12/17/24 MR#: [id number] Acct: [id number] Patient: BITA THOMPSON Rep #: [id number] : 1945 Provider: Dr. Joseluis Dang MD Age/Sex: 79/F Location: [facility]. Status: Signed Intake Vital Signs 10/18/24 11:26 12/17/24 13:12 Height 5 ft 6 in Weight: 148 lb 147 lb 3 oz BMI 23.8 BP 165/70 H 156/74 H Blood Pressure Location Lt brachial Lt brachial Position Sitting Sitting Respiration 16 17 Pulse 73 88 Pulse Source Monitor Monitor Temp 98.9 F 98.0 F Temp Source Temporal Temporal Pulse Oximetry (%) 97 97 Oxygen Delivery Method room air room air Intake Visit Reasons: B12 inject Chief Complaint: Allergies primidone Allergy (Severe, Verified 10/09/24 13:05) Anaphylaxis montelukast Allergy (Intermediate, Verified 10/09/24 13:05) Other alcohol (From Mastisol Adhesive) Allergy (Unknown, Verified 10/09/24 13:05) Rash beef derived (bovine) Allergy (Unknown, Verified 10/09/24 13:05) Unknown gum mastic (From Mastisol Adhesive) Allergy (Unknown, Verified 10/09/24 13:05) Rash methyl salicylate (From Mastisol Adhesive) Allergy (Unknown, Verified 10/09/24 13:05) Rash mold Allergy (Unknown, Verified 10/09/24 13:05) Difficulty Breathing/Wheezing penicillin V Allergy (Unknown, Verified 10/09/24 13:05) Rash storax (From Mastisol Adhesive) Allergy (Unknown, Verified 10/09/24 13:05) Rash [id number] Reductase Inhibitor Allergy (Verified 10/09/24 13:05) NEEDS FOLLOW-UP black pepper Adverse Reaction (Unknown, Verified 10/09/24 13:05) UNKNOWN Have you fallen in the past year?: Yes Office Meds cyanocobalamin (vitamin B-12) 1,000 mcg/mL injection solution Performing Provider: Brandt Dang MD Performing Location: [facility] Administered by: Estephania Ledesma on 12/17/24 13:13 Dose Route Admin Location Dispensed Lot Number Expiration Date Pack age NDC NDC [employer] 1,500 mcg IM left deltoid 1.5 mL [id number] 06/27/26 61932-103-62 [id number] DYANA REES Comments: The patient presents for B12 injection for treatment of history of Vitamin B12 deficiency. She has history of B12 vitamin deficiency. Her last B12 injection was of benefit for her history of B12 vitamin deficiency. The patient is awake and alert. B12 1500mcg IM was administered today. There were no complications. Assessment and Plan Assessment and Plan (1) Fatigue: Status: Chronic Qualifiers: Fatigue type: chronic, unspecified Qualified Code(s): R53.82 - Chronic fatigue, unspecified Orders: Orders Vitamin B12 Today R53.82 - Chronic fatigue, unspecified Clinical Quality Measures Falls Risk Screening/Assistive Devices Have you fallen in the past year?: Yes 12/17/24 4768 <Electronically signed by Brandt fisher MD> Date _ Brandt Dang MD Cosigner Signature: Date (if applicable) CC: ~ [facility] Work Phone: [phone]) 819-173210-09-2025 NoteHNO ID: [id number] Author: EBEN PIPER APRN.VP CLINICAL Service: ? Author Type: Nurse Practitioner Type: Progress Notes Filed: 12/06/2024 15:23 Note Text: Chief Complaint Patient presents with: 6 Month Exam HPI Bita Thompson is a 79 year old female who presents here today for Above Complaints.. HTN: Patient is compliant with meds Yes, lisinopril and recently started lopressor Monitors bp at home: Yes, not often 140s-165/ 70s Denies side effects: No. Chest pain: Yes. Dyspnea: No. Edema: No. Palpitations: No. Syncope: No. Headache: No. Dizziness: No. Last month propranolol was discontinued, and she states that she was started on metoprolol tartrate for her tremors. States that since D/C the propranolol has had intermittent tightness across chest that occurs 2-3 times weekly, towards the end of the day and especially on busy days. Also noticed a recent cough. Fell 2 weeks ago and was seen in the ED. Had Head CT due to head injury. States that fall occurred because her leg did not want to move. Denies LOC or issues since. GERD- takes pepcid daily at night, does not remember when she last had a flare. Granddaughter lives at home with patient and her who has Alzheimers. Would like to see a counselor. Dr. Dang prescribes her Buspar, also was the one to DC her propranolol and start metoprolol. She received Vitamin B12 shots from his office Past medical history, appointments, medications, allergies reviewed. Previous Medical History PAST MEDICAL HISTORY Diagnosis Date Anal condyloma Closed fibular fracture right Environmental allergies Essential hypertension Essential tremor History of ITP History of skin cancer Mixed hyperlipidemia CYNTHIA (obstructive sleep apnea) Osteopenia Stage 2 chronic kidney disease Statin intolerance Previous Surgical History PAST SURGICAL HISTORY Procedure Laterality Date BACK SURGERY HX L4-5, fx spine ELBOW SURGERY HX LAPAROSCOPIC SPLENECTOMY NASAL SINUS SURGERY HX REMOVAL GALLBLADDER TOTAL ABDOM HYSTERECTOMY 1997 Family History FAMILY HISTORY Problem Relation Age of Onset Hypertension Mother Tremor Mother other (smoker) Mother other (manic depression) Mother Stroke Mother Colon Cancer Father Cancer Father colon Hyperlipidemia Father other (smoker) Father Stroke Father Essential Tremor Sister Hypertension Sister Hyperlipidemia Sister Essential Tremor Brother Hyperlipidemia Brother Hypertension Brother Arthritis Maternal Grandmother Stroke Maternal Grandmother Essential Tremor Maternal Grandfather Stroke Maternal Grandfather Cancer Paternal Grandfather colon Patient Allergies ALLERGIES Allergen Reactions Adhesive Tape-Silic* Unknown Beef Containing Pro* Other: See Comments Beta-Blockers (Beta* Intolerance Black Pepper Unknown Cat Dander Other: See Comments Horse Dander Other: See Comments Mushroom Rash Penicillins Hives Seasonal Allergies Unknown Xlfimlt-Kub-Iyr Red* GI Upset Current Medications Current Outpatient Medications on File Prior to Visit Medication Sig fenofibrate nanocrystallized (TRICOR) 145 mg tablet Take 1 tablet by mouth once daily. lisinopril (ZESTRIL) 20 mg tablet Take 1 tablet by mouth two times a day. famotidine (PEPCID) 20 mg tablet Take 1 tablet by mouth once daily. busPIRone (BUSPAR) 5 mg tablet Take 1 tablet by mouth two times a day. albuterol HFA 90 mcg/actuation HFA Inhale as instructed. cholecalciferol, vitamin D3, (VITAMIN D3 ORAL) Take 400 mg by mouth. Unknown frequency No current facility-administered medications on file prior to visit. Social History SOCIAL HISTORY[1] Review of Symptoms REVIEW OF SYSTEMS SEE HPI EXAM: BP 171/74 (BP Position: Sitting) Pulse 72 Wt 68 kg (149 lb 14.6 oz) BMI 24.95 kg/m? General Appearance: Well appearing, alert, in no acute distress, well-hydrated, well nourished.. Skin: Skin color, texture, turgor normal, no suspicious rashes or lesions. Head: Normocephalic, no masses, lesions, tenderness or abnormalities. Neck: Supple, no adenopathy; thyroid symmetric, normal size, no bruits. Lungs: Lungs clear to auscultation. No wheezing, rhonchi, rales.. Heart: RRR without murmur, gallop, or rubs. No ectopy. Abdomen: Normal abdominal exam, Abdomen soft, non-tender. Bowel sounds normal. No masses, organomegaly. Neurologic: Positive findings: tremors, ambulates with a cane. Health Maintenance List Hib Vaccine(1 of 1 - Risk 1-dose series) Never done Depression Screening Never done Anxiety Screening Never done DTaP,Tdap,Td Vaccine(2 - Td or Tdap) due on 03/04/2018 Meningococcal B Vaccine(3 of 5 - Increased Risk Trumenba 3-dose series) due on 04/08/2018 Shingrix Vaccine(2 of 3) due on 08/29/2019 Meningococcal Conjugate Vaccine(3 - Risk 2-dose series) due on 06/14/2022 Advance Directive Discussion Never done Influenza Vaccine(1) due on 10/29/2024 Covid- (more content not included)...[facility]09-25-2025 Note HNO ID: [id number] Author: ESCOBAR BALTAZAR Mammo Tech Service: ? Author Type: Manager Sas Type: Progress Notes Filed: 11/22/2024 14:16 Note Text: Radiology Service Progress Note PATIENT NAME: Bita Thompson DATE OF SERVICE: November 22, 2024 TIME: 2:16 PM PATIENT IDENTITY VERIFICATION COMPLETED USING TWO (2) IDENTIFIERS: Name and Date of confirmed by patient verbally. FALL SCREENING: Has the patient had 2 falls in the last year or 1 fall with injury or currently using an Ambulatory Assistive Device (Walker, Cane, Wheelchair, Crutches, etc.)? No PATIENT GENDER DATA: Assigned female at . status: : No status: NO. PATIENT RELEVANT IMPLANT DATA REVIEWED: Not Applicable PATIENT PRESENTS WITH AN IMPLANTABLE OR ATTACHED RELIGIOUS RITUAL SLAUGHTERER: No RADIOLOGY DEPARTMENT: Mammography PERIPHERAL IV DATA: Not applicable SIGNED BY: Jose Au November 22, 2024 2:16 [facility]09-23-2025 Hospital Discharge instructions Patient Education 11/20/2024 18:32:25 Head Injury (Adult) Head Injury (Adult) You have a head injury. It does not appear serious at this time. But symptoms of a more serious problem, such as a mild brain injury (concussion) or bruising or bleeding in the brain, may appear later. For this reason, you or someone caring for you will need to watch for the symptoms listed below. Once you re home, also be sure to follow any care instructions you re given. Home care Watch for the following symptoms Seek emergency medical care if you have any of these symptoms over the next hours to days: Headache Nausea or vomiting Dizziness Sensitivity to light or noise Unusual sleepiness or grogginess Trouble falling asleep Personality changes Vision changes Memory loss Confusion Trouble walking or clumsiness Loss of consciousness (even for a short time) Inability to be awakened Stiff neck Weakness or numbness in any part of the body Seizures General care If you were prescribed medicines for pain, use them as directed. Note: Don t take other medicines for pain without talking to your provider first. To help reduce swelling and pain, apply a cold source to the injured area for up to 20 minutes at atime. Do this as often as directed. Use a cold pack or bag of ice wrapped in a thin towel. Never apply a cold source directly to the skin. If you have cuts or scrapes as a result of your head injury, care for them as directed. For the next 24 hours (or longer, if instructed): oDon t drink alcohol or use sedatives or other medicines that make you sleepy. oDon t drive or operate machinery. oDon t do anything strenuous, such as heavy lifting or straining. oLimit tasks that require concentration. This includes reading, using a smartphone or computer, watching TV, and playing video games. oDon t return to sports or other activities that could result in another head injury. Follow-up care Follow up with your healthcare provider, or as directed. If imaging tests were done, they will be reviewed by a doctor. You will be told the results and any new findings that may affect your care. When to seek medical advice Call your healthcare provider right away if any of these occur: Pain doesn t get better or worsens New or increased swelling or bruising Fever of 100.4 F (38 C) or higher, or as directed by your provider Increased redness, warmth, drainage, or bleeding from the injured area Fluid drainage or bleeding from the nose or ears Any depression or bony abnormality in the injured area Persistent confusion or lethargy Bruising behind the ears or bruising around the eyes [id number] [employer]. [address] [place] [address]. All rights reserved. This information is not intended as a substitute for professional medical care. Always follow yourhealthcare professional's instructions. Follow Up Care 11/20/2024 17:23:06 With:CL OVALLES APRN-UNIFORM ROOM ATTENDANT Address: [address] [place] [phone] When:2-4 days [facility] 09-23-2025 Emergency department Discharge summary Discharge Instructions Thank you for allowing [facility] to assist you with your healthcare needs. The following is importantdischarge information regarding your hospital visit. Diagnosis from Today's Visit Head injury What to Do Next Instructions from Your Care Team You have been evaluated in the Emergency Department today for headache after mechanical fall. Your evaluation did not show evidence of medical conditions requiring emergent intervention at this time,and your pain improved with medication in the ED. We recommend you take 600mg ibuprofen every 6 hours or tylenol 650mg every 6 hours as needed for pain. If needed, you can alternate these medications so that you take one medication every 3 hours. For instance, at noon take ibuprofen, then at 3pm take tylenol, then at 6pm take ibuprofen. Please follow up with your primary care physician within two days. Return to the Emergency Department if you experience worsening or uncontrolled pain, vision changes, recurrent vomiting, difficulty with normal activities, abnormal behavior, difficulty walking, numbness, weakness, or any other concerning symptoms. No qualifying data available. Post Acute Orders No qualifying data available. You Need to Schedule the Following Appointments Follow Up with CL OVALLES When:Within 2-4 days Where:[address] [place] [address]- [phone] Allergies Statins beta sal penicillin Hives Medications Please ask your primary doctor or pharmacist before taking any other medication not listed, including over the counter drugs, herbal medications, vitamins and or supplements as they may interact withyour home medications. What How Much When Instructions Last Dose Unchanged acetaminophen (Tylenol 325 mg oral capsule) 650 Milligram by mouth Every 4 hours as needed for Pain, scale 1-3 Unchanged aspirin 81 Milligram by mouth Twice daily with meals Unchanged docusate (Colace 100 mg oral capsule) 1 cap by mouth Two (2) times a day as needed for Constipation Unchanged famotidine (Pepcid 20 mg oral tablet) 1 tab(s) by mouth Daily at bedtime Unchanged fenofibrate (TriCor 145 mg oral tablet) 1 tab(s) by mouth Once a day Unchanged lisinopril (lisinopril 20 mg oral tablet) 1 tab(s) by mouth Two (2) times a day Please take this list to your next doctor s visit. Bring all medications you take, including over the counter medications, herbals and other supplements with you to your doctor s visit. Patients and families are reminded to discard old lists and to update any records with all medication providers or retail pharmacies. Education Materials Head Injury (Adult) You have a head injury. It does not appear serious at this time. But symptoms of a more serious problem, such as a mild brain injury (concussion) or bruising or bleeding in the brain, may appear later. For this reason, you or someone caring for you will need to watch for the symptoms listed below. Once you re home, also be sure to follow any care instructions you re given. Home care Watch for the following symptoms Seek emergency medical care if you have any of these symptoms over the next hours to days: Headache Nausea or vomiting Dizziness Sensitivity to light or noise Unusual sleepiness or grogginess Trouble falling asleep Personality changes Vision changes Memory loss Confusion Trouble walking or clumsiness Loss of consciousness (even for a short time) Inability to be awakened Stiff neck Weakness or numbness in any part of the body Seizures General care If you were prescribed medicines for pain, use them as directed. Note: Don t take other medicines for pain without talking to your provider first. To help reduce swelling and pain, apply a cold source to the injured area for up to 20 minutes at atime. Do this as often as directed. Use a cold pack or bag of ice wrapped in a thin towel. Never apply a cold source directly to the skin. If you have cuts or scrapes as a result of your head injury, care for them as directed. For the next 24 hours (or longer, if instructed): oDon t drink alcohol or use sedatives or other medicines that make you sleepy. oDon t drive or operate machinery. oDon t do anything strenuous, such as heavy lifting or straining. oLimit tasks that require concentration. This includes reading, using a smartphone or computer, watching TV, and playing video games. oDon t return to sports or other activities that could result in another head injury. Follow-up care Follow up with your healthcare provider, or as directed. If imaging tests were done, they will be reviewed by a doctor. You will be told the results and any new findings that may affect your care. When to seek medical advice Call your healthcare provider right away if any of these occur: Pain doesn t get better or worsens New or increased swelling or bruising Fever of 100.4 F (38 C) or higher, or as directed by your provider Increased redness, warmth, drainage, or bleeding from the injured area Fluid drainage or bleeding from the nose or ears Any depression or bony abnormality in the injured area Persistent confusion or lethargy Bruising behind the ears or bruising around the eyes [phone] [employer]. [address] [place] [address], [place] [address]. All rights reserved. This information is not intended as a substitute for professional medical care. Always follow yourhealthcare professional's instructions. Additional Information VACCINATE! IT SAVES LIVES! Members of the community who have not yet received the COVID-19 vaccine and would like to receive it can visit one of [facility] vaccine clinics. There are many vaccine clinic locations within the [facility]. For locations and available times, please visit www.gettheshot.coronavirus.[place].gov/. It is important to note that some COVID mobile vaccine clinics are held outdoors and may be canceled in rainy or stormy conditions. To learn more about pediatric vaccinations (ages 5-11), we invite you to visit the [facility] webpage. https://www.akWhereverTVs.org/pages/[email or web address]-Adert-Ujvzxhxvnmk-Xfdlzakjmi-Jwugb-Udh stions.htmlTo learn more about the COVID-19 vaccine, we invite you to visit the CDC website for a list of frequently asked questions. https://www.cdc.gov/coronavirus/2019-ncov/vaccines/faq.html [facility] Patient Portal Access Instructions: Stay connected with your healthcare team and access your personal medical information anytime with the [facility] Patient Portal. If you would like a full copy of your medical records please contact the [facility] Medical Records Department Tuesday through Tuesday between 8a.m. and 4:30p.m. Please follow the directions below to access the portal: 1.Access the email account you provided upon registration to the hospital.2.Look for an invitation email from [facility].3.Open the email and access the invitation link: Accept Invitation to [facility]4.Fill in the required badillo to create your account. To access your account, visit [email or web address] or scan the QR code above. Click the [employer] Access Patient Portal and then log in with the username and password that you created in the steps above. You can then view a summary of results, a summary of your visits, and the ability to download your summaries to your computer or send the information securely to a physician. Remember that your healthcare information is confidential, so carefully consider who you will allow to register on the [employer] Patient Portal for access to your information. You can also access the [employer] Patient Portal on the [employer]. Simply click on Health Records under Health Data and then click on the [employer] logo. HOW TO SAFELY DISPOSE OF PRESCRIPTION MEDICATIONS Please use one of the following methods to safely dispose of your unused medications. 1.Use a drug disposal kit: the drug disposal pouch allows you to safely discard your old and unuseddrugs. Ask your nurse to give you one when you are discharged.2.Visit a local take-back location: Many local pharmacies and police departments have programs that collect old and unwanted prescriptiondrugs. Call your local pharmacy or go to http://[employer]/0B7Tg4g to find one close to you.3.Make use of household items: Use cat litter or old coffee grounds to dispose medications if other options arenot available. Mix your drugs with these household products, seal them in an airtight container andthrow it into the garbage. Call [facility]: [phone] to be sure your drugs can be disposed of in this way. Some medicines may require a different approach.4.Never flush your medications down the toilet. IF YOU HAVE BEEN PRESCRIBED AN OPIOIDS FOR PAIN If you have been prescribed an opioid (such as hydrocodone, oxycodone or morphine), it is critical to understand the possible side effects and risks of opioid pain medications. Even when taken as directed, opioids can have several side effects including: Tolerance, meaning you might need to take more of a medication for the same pain relief. Nausea, vomiting and/or constipation. Sleepiness, dizziness, dry mouth, confusion, depression or itching. Physical dependence, meaning you have withdrawal symptoms when a medication is stopped ? this can develop within a few days. KNOW YOUR RESPONSIBILITIES It is important to know exactly how much and how often to take the opioid pain medications you are prescribed. Never take opioids in higher amounts or more often than prescribed. Do not combine opioids with alcohol or other drugs that cause drowsiness, such as benzodiazepines, also known as benzos,including diazepam and alprazolam, muscle relaxants or sleep aids. Never sell or share prescriptionopioids. This is illegal. Store opioids in a secure place and out of reach of others (including children, family, friends and visitors). The last page(s) of this document has been signed and retained as a CHART COPY Signatures Patient Education Materials Head Injury (Adult) Medication Leaflets My discharge plan and instructions have been reviewed and explained to me and I,BITA THOMPSON understand my current condition and have read and understand these discharge instructions. I have received a written copy of the plan/instructions. If I have questions, I am aware that I should contact my d octor. Patient/Chemical Dependency Therapist Signature: Date/Time: Relationship to Patient: Witness Name/Signature: Date/Time: [facility]09-23-2025 Note* Exam Date Time Procedure Performing Provider Status 11/20/24 6:[address] Spine Cervical w/o Contrast NORMA STEVENS DO; Auth (Verified) [id number] ORIGINAL EXAMINATION: CT OF THE CERVICAL SPINE WITHOUT CONTRAST 11/20/2024 6:02 pm TECHNIQUE: CT of the cervical spine was performed without the administration of intravenous contrast. Multiplanar reformatted images are provided for review. Automated exposure control, iterative reconstruction, and/or weight based adjustment of the mA/kV was utilized to reduce the radiation dose to as low as reasonably achievable. COMPARISON: None. HISTORY: ORDERING SYSTEM PROVIDED HISTORY: Reason for Exam: fall, hit head FINDINGS: BONES/ALIGNMENT: There is no acute fracture or traumatic malalignment. DEGENERATIVE CHANGES: Multilevel degenerative changes are appreciated with intervertebral disc space loss, endplate sclerosis, and osteophytosis noted. These changes appear most severe at C5-6 with a slightly asymmetric left posterior disc osteophyte complex resulting in moderate narrowing of the spinal canal. Facet and uncovertebral arthropathy are appreciated throughout with moderate neural foraminal stenoses at C4-5 on the right and C5-6 bilaterally. SOFT TISSUES: Prevertebral and paraspinal soft tissues are grossly unremarkable. No acute abnormality is noted within the included lung apices. IMPRESSION: 1. No acute fracture or traumatic listhesis. 2. Multilevel degenerative changes as above. Interpreted by: Norma Stevens Preliminary Report By: Norma Stevens Electronically signed By Norma Stevens Dictated Date: 11/20/2024 6:16:28 PM Prelim Date: 11/20/2024 6:23:33 PM Sign Date: 11/20/2024 6:23:33 PM Ordering Provider: [facility]09-23-2025 Note* Exam Date Time Procedure Performing Provider Status 11/20/24 6:[address] Head or Brain w/o Contrast NORMA STEVENS DO; Auth (Verified) [id number] ORIGINAL EXAMINATION: CT OF THE HEAD WITHOUT CONTRAST 11/20/2024 6:01 pm TECHNIQUE: CT of the head was performed without the administration of intravenous contrast. Automated exposure control, iterative reconstruction, and/or weight based adjustment of the mA/kV was utilized to reduce the radiation dose to as low as reasonably achievable. COMPARISON: None. HISTORY: ORDERING SYSTEM PROVIDED HISTORY: Reason for Exam: fall, hit head FINDINGS: BRAIN/VENTRICLES: There is no acute intracranial hemorrhage, mass effect or midline shift. No abnormal extra-axial fluid collection. The mccarty-white differentiation is maintained without evidence of an acute infarct. There are nonspecific hypoattenuating foci in the subcortical and periventricular white matter that most likely represent chronic microangiopathic ischemic changes in a patient of this age. Mild generalized volume loss is appreciated with associated prominence of the sulci and ventricles. There is no evidence of hydrocephalus. ORBITS: The visualized portion of the orbits demonstrate no acute abnormality. SINUSES: The visualized paranasal sinuses and mastoid air cells demonstrate no acute abnormality. SOFT TISSUES/SKULL: No acute abnormality of the visualized skull or soft tissues. IMPRESSION: No acute intracranial abnormality. Interpreted by: Norma Stevens Preliminary Report By: Norma Stevens Electronically signed By Norma Stevens Dictated Date: 11/20/2024 6:11:30 PM Prelim Date: 11/20/2024 6:16:19 PM Sign Date: 11/20/2024 6:16:19 PM Ordering Provider: [facility]08-12-2025 Telephone encounter Note* Telephone Encounter - Indio Medina MD - 10/09/2024 7:13 AM EDT Refills sent as requested. [facility]08-12-2025 Miscellaneous Notes* Telephone Encounter - Indio Medina MD - 10/09/2024 7:13 AM EDT Refills sent as requested. * Telephone Encounter - Sabiha Koroma MA - 10/08/2024 5:15 PM EDT Spoke to patient she would like medication resent to [facility] Sabiha Koroma MA [facility] Telephone encounter Note * Telephone Encounter - Sabiha Koroma MA - 10/08/2024 5:15 PM EDT Spoke to patient she would like medication resent to [facility] Sabiha Koroma MA [facility]07-21-2025 Evaluation note* Diagnosis Onset Date Resolution Status Admit Date Fatigue chronic September 17 10:52am Anxiety chronic October 09, 025 12:53pm Essential tremor chronic September 282024 12:53pm Fatigue chronic October 09, 2 025 12:53pm Osteopenia chronic October 09, 2 025 12:53pm Fatigue chronic October 18, 2 025 11:22am Fatigue chronic October 11:17am Fatigue chronic December 17, 2024 12:52pm [employer] Work Phone: 1(404) 257-148907-07-2025 Telephone encounter Note* Telephone Encounter - Sarita Whitmore MA - 09/03/2024 3:11 PM EDT Patient MyChart message requesting the following refill. Requested Prescriptions Pending Prescriptions Disp Refills fenofibrate nanocrystallized (TRICOR) 145 mg tablet 90 tablet 1 Sig: Take 1 tablet by mouth once daily. Patient last appointment: 06/06/24 Patient Phone numbers: [phone] (home) Request is for script(s) to be escript to pharmacy. Sarita Whitmore MA [facility]07-07-2025 Miscellaneous Notes* Telephone Encounter - Sarita Whitmore MA - 09/03/2024 3:11 PM EDT Patient MyChart message requesting the following refill. Requested Prescriptions Pending Prescriptions Disp Refills fenofibrate nanocrystallized (TRICOR) 145 mg tablet 90 tablet 1 Sig: Take 1 tablet by mouth once daily. Patient last appointment: 06/06/24 Patient Phone numbers: [phone] (home) Request is for script(s) to be escript to pharmacy. Sarita Whitmore MA documented in this encounterOhio[facility]06-[facility]25 NoteHNO ID: [id number] Author: NELSON TORREZ MD Service: ? Author Type: Physician Type: Progress Notes Filed: 08/23/2024 06:11 Note Text: FOLLOW UP VISIT NAME: [facility] NO.: [id number] DATE OF SERVICE: 04/11/2024 : 1945 REFERRING PHYSICIAN: Seferino Bita is a patient I am following for a lipoma versus sebaceous cyst in the right axillary region and a skin lesion on her left forearm. I performed excision of her right axillary site and then excision of the left forearm lesion on February 15, 2024. Pathology returned as: FINAL DIAGNOSIS A. Skin, left arm, excision: - Basal cell carcinoma, superficial and nodular types, see comment. B. Skin, right axillary, excision: - Epidermal inclusion cyst, ruptured. Diagnosis Comment A. The basal cell carcinoma is present at one peripheral margin of the excision specimen. Clinical correlation is recommended. The patient notes all sites are healing well with no complaints. She initially wondered if she had a recurrence in the area where the area seems slightly raised. She presented to the office in early July but due to being behind schedule she had to go home to take care of her who has Alzheimer's dementia. She returns now for evaluation but notices that the area that seemed slightly raised is now flat and does not concern her. She knows she is allergic to cats and wondered if it became raised when she was around a cat just before she noted the area was swollen. VITALS: Blood pressure 148/70, pulse 78, temperature 36.4 ?C (97.5 ?F), temperature source Temporal, resp. rate 14, height 165.1 cm (5' 5), weight 67.1 kg (148 lb), SpO2 95%. On examination, the right axillary site and the left forearm site are healing with no signs of residual concerns. There does not appear to be a true recurrence A photograph of the site was taken and scanned into imaging. Assessment IMPRESSION: Ruptured sebaceous cyst right axilla and left forearm basal cell carcinoma extending to 1 peripheral margin PLAN: If the patient notes any problems or signs of recurrence at the left forearm site, the patient should contact me immediately. We discussed the signs of a raised site or nodularity as a suspicious finding. We discussed the option of reexcision even though I felt clinically I excised the site completel She wishes to follow the site and not have it reexcised currently. Diagnoses: (C44.619) Basal cell carcinoma (BCC) of left upper arm (primary encounter diagnosis) (L98.9) Skin lesion of left arm Return to Clinic: The patient is instructed to follow-up with me for wound check in 6 months. [facility]06-26-2025 History of Present illness Narrative* Nelson Torrez MD - 08/23/2024 6:07 AM EDT FOLLOW UP VISIT NAME: [facility] NO.: [id number] DATE OF SERVICE: 04/11/2024 : 1945 REFERRING PHYSICIAN: None Bita is a patient I am following for a lipoma versus sebaceous cyst in the right axillary region arpit skin lesion on her left forearm. I performed excision of her right axillary site and then excision of the left forearm lesion on February 15, 2024. Pathology returned as: FINAL DIAGNOSIS A. Skin, left arm, excision: - Basal cell carcinoma, superficial and nodular types, see comment. B. Skin, right axillary, excision: - Epidermal inclusion cyst, ruptured. Diagnosis Comment A. The basal cell carcinoma is present at one peripheral margin of the excision specimen. Clinical correlation is recommended. The patient notes all sites are healing well with no complaints. She initially wondered if she had a recurrence in the area where the area seems slightly raised. She presented to the office in early July but due to being behind schedule she had to go home to take care of her who has Alzheimer's dementia. She returns now for evaluation but notices that the area that seemed slightly raised is now flat and does not concern her. She knows she is allergic to cats and wondered if it became raised when she was around a cat just before she noted the area was swollen. VITALS: Blood pressure 148/70, pulse 78, temperature 36.4 C (97.5 F), temperature source Temporal, resp. rate 14, height 165.1 cm (5' 5), weight 67.1 kg (148 lb), SpO2 95%. On examination, the right axillary site and the left forearm site are healing with no signs of residual concerns. There does not appear to be a true recurrence A photograph of the site was taken and scanned into imaging. Assessment IMPRESSION: Ruptured sebaceous cyst right axilla and left forearm basal cell carcinoma extending to1 peripheral margin PLAN: If the patient notes any problems or signs of recurrence at the left forearm site, the patient should contact me immediately. We discussed the signs of a raised site or nodularity as a suspicious finding. We discussed the option of reexcision even though I felt clinically I excised the site completel She wishes to follow the site and not have it reexcised currently. Diagnoses: (C44.619) Basal cell carcinoma (BCC) of left upper arm (primary encounter diagnosis) (L98.9) Skin lesion of left arm Return to Clinic: The patient is instructed to follow-up with me for wound check in 6 months. Nelson Torrez MD documented in this encounterOhio[facility]06-[facility] Evaluation note* Diagnosis Onset Date Resolution Status Admit Date Fatigue chronic August 16 1:55pm Fatigue chronic September 17 10:52am Anxiety chronic October 09, 025 12:53pm Essential tremor chronic September 282024 12:53pm Fatigue chronic October 09, 025 12:53pm Osteopenia chronic October 09, 025 12:53pm Fatigue chronic October 18, 025 11:22am Fatigue chronic October 11:17am [employer] Work Phone: 1(936) 165-547906-07-2025 NoteHNO ID: [id number] Author: NELSON TORREZ MD Service: ? Author Type: Physician Type: Progress Notes Filed: 08/04/2024 18:32 Note Text: [facility] History of Present illness Narrative* Nelson Torrez MD - 08/04/2024 6:31 PM EDT Patient left without being seen documented in this encounterOhiohealth [facility]06-05-2025 Telephone encounter Note * Telephone Encounter - Guicho Riley LPN - 08/02/2024 4:53 PM EDT Patient scheduled for 08/22/2024. Guicho Riley LPN [facility]06-05-2025 Miscellaneous Notes* Telephone Encounter - Guicho Riley LPN - 08/02/2024 4:53 PM EDT Patient scheduled for 08/22/2024. Guicho Riley LPN * Telephone Encounter - Guicho Riley LPN - 08/02/2024 1:24 PM EDT Called patient. No answer- left message. Patient had appointment but did leave prior to being seen due to spouse having cognitive concerns and had not eaten lunch yet. Dr. Torrez can see after lunchif she is able to return to clinic. Guicho Riley LPN documented in this encounterOhio[facility]06-05-2025 Telephone encounter Note * Telephone Encounter - Guicho Riley LPN - 08/02/2024 1:24 PM EDT Called patient. No answer- left message. Patient had appointment but did leave prior to being seen due to spouse having cognitive concerns and had not eaten lunch yet. Dr. Torrez can see after lunchif she is able to return to clinic. Guicho Riley LPN [facility]06-03-2025 Telephone encounter Note* Telephone Encounter - Patricia Kaye LPN - 07/31/2024 3:17 PM EDT Prescription Refill Information The patient has been identified by name and date of : Yes Caregiver verified no other encounters exist for this prescription request: Yes Caregiver confirmed with patient/requestor that no other refills are due, in the near future, with this provider at this time: Yes The last office visit in the department: 06/06/24 Does the patient have a future office visit with this provider/department: Yes-12/06/24 Requested Prescriptions Pending Prescriptions Disp Refills lisinopril (ZESTRIL) 20 mg tablet 180 tablet 0 Sig: Take 1 tablet by mouth two times a day. Patricia Kaye LPN July 31, 2024 3:17 PM [facility]06-03-2025 Miscellaneous Notes* Telephone Encounter - Patricia Kaye LPN - 07/31/2024 3:17 PM EDT Prescription Refill Information The patient has been identified by name and date of : Yes Caregiver verified no other encounters exist for this prescription request: Yes Caregiver confirmed with patient/requestor that no other refills are due, in the near future, with this provider at this time: Yes The last office visit in the department: 06/06/24 Does the patient have a future office visit with this provider/department: Yes-12/06/24 Requested Prescriptions Pending Prescriptions Disp Refills lisinopril (ZESTRIL) 20 mg tablet 180 tablet 0 Sig: Take 1 tablet by mouth two times a day. Patricia Kaye LPN July 31, 2024 3:17 PM documented in this encounterOhiohealth [facility]05-19-2025 Evaluation note* Diagnosis Onset Date Resolution Status Admit Date Fatigue chronic July 16, 2024 9:59am Fatigue chronic August 16 1:55pm Fatigue chronic September 17 10:52am Anxiety chronic October 09, 025 12:53pm Essential tremor chronic September 282024 12:53pm Fatigue chronic October 09, 025 12:53pm Osteopenia chronic October 09, 025 12:53pm Fatigue chronic October 18, 025 11:22am [facility] Work Phone: [phone]) [phone] Telephone encounter Note* Telephone Encounter - Maribel Duncan LPN - 06/15/2024 11:01 AM EDT Patient returned call and went over results, notes from Zara Galloway LODGING FACILITIES ATTENDANT with understanding. Patient said it is very difficult to eat out in town and get healthy foods. [facility]04-18-2025 Miscellaneous Notes* Telephone Encounter - Maribel Duncan LPN - 06/15/2024 11:01 AM EDT Patient returned call and went over results, notes from Zara Galloway LODGING FACILITIES ATTENDANT with understanding. Patient said it is very difficult to eat out in town and get healthy foods. * Telephone Encounter - Sofía Alexandre LPN - 06/15/2024 10:18 AM EDT Telephone call to patient. Message left to call office back for update. Sofía Alexandre LPN * Telephone Encounter - Sofía Alexandre LPN - 06/15/2024 10:17 AM EDT ----- Message from Zara Galloway APRN.VP CLINICAL sent at 06/15/2024 6:31 AM EDT ----- Kidney function has decreased slightly, recommend low salt diet, avoid NSAID products and aim for at least 150 minutes of exercise per week. LDL ( bad cholesterol) is slightly elevated- recommend lowsaturated fat diet and aim for at least 150 minute s of exercise per week. Zara Galloway APRN.VP CLINICAL documented in this encounterOhiohealth [facility]04-18-2025 Telephone encounter Note * Telephone Encounter - Sofía Alexandre LPN - 06/15/2024 10:18 AM EDT Telephone call to patient. Message left to call office back for update. Sofía Alexandre LPN [facility]04-18-2025 Telephone encounter Note* Telephone Encounter - Sofía Alexandre LPN - 06/15/2024 10:17 AM EDT ----- Message from Zara Galloway APRN.VP CLINICAL sent at 06/15/2024 6:31 AM EDT ----- Kidney function has decreased slightly, recommend low salt diet, avoid NSAID products and aim for at least 150 minutes of exercise per week. LDL ( bad cholesterol) is slightly elevated- recommend lowsaturated fat diet and aim for at least 150 minute s of exercise per week. Zara Galloway APRN.VP CLINICAL T [facility]04-15-2025 Evaluation note* Diagnosis Onset Date Resolution Status Admit Date Fatigue chronic June 12 1:32pm Fatigue chronic July 16, 2024 9:59am Fatigue chronic August 16 1:55pm [facility] Work Phone: 1(890) 349-673504-15-2025 Evaluation note* Diagnosis Onset Date Resolution Status Admit Date Fatigue chronic June 12 1:32pm Fatigue chronic July 16, 2024 9:59am Fatigue chronic August 16 1:55pm Fatigue chronic September 17 10:52am Osteopenia acute October 09, 025 12:53pm Anxiety chronic October 09, 025 12:53pm Essential tremor chronic September 282024 12:53pm Fatigue chronic October 09, 025 12:53pm [place] [employer] [facility] Work Phone: 1(124) 148-310504-09-2025 NoteHNO ID: [id number] Author: ZARA GALLOWAY APRN.VP CLINICAL Service: ? Author Type: Nurse Practitioner Type: Progress Notes Filed: 06/06/2024 15:54 Note Text: 06/06/2024 Patient presents with: Establish Care SUBJECTIVE: This is a 78 year old that is here today for Above Complaints.. Will be getting colonoscopy on 07/20/2024. CYNTHIA: follows with Dr. Beckford. Uses CPAP nightly. Feels refreshed when she wakes up Follows with Dr. Dang for hx of essential tremors Follows with Dr. Nava for hx of CKD. Last office visit was on 04/05/2024. Patient reports recommended follow-up was in one year Goes to allergy clinic behind [facility] for allergy injections. Reports she uses an albuterol inhaler at times as well HTN: Patient is compliant with meds Yes Monitors bp at home: No. Denies side effects: Yes. Chest pain: No. Dyspnea: No. Edema: No. Palpitations: No. Syncope: No. Headache: No. Dizziness: No. HYPERLIPIDEMIA: Patient is taking medications: takes fenofibrate . Patient is watching diet: Yes. Patient denies myalgias: Yes. Patient denies gi upset: Yes Past medical, surgical, family, social hx, medications, allergies and health maintenance reviewed and updated PAST MEDICAL HISTORY Diagnosis Date Anal condyloma Essential hypertension History of ITP History of skin cancer Mixed hyperlipidemia CYNTHIA (obstructive sleep apnea) Stage 2 chronic kidney disease ALLERGIES Adhesive Tape-Silicones, Beef Containing Products, Beta-Blockers (Beta-Adrenergic Blocking Agts), Black Pepper, Cat Dander, Horse Dander, Mushroom, Penicillins, Seasonal Allergies, and Mhqyhqo-Uup-Pzu Reductase Inhibitors MEDICATIONS Current Outpatient Medications Medication Sig lisinopril (ZESTRIL) 20 mg tablet Take 1 tablet by mouth two times a day. fenofibrate nanocrystallized (TRICOR) 145 mg tablet Take 1 tablet by mouth once daily. propranolol (INDERAL) 10 mg tablet 2 tablets Orally twice a day busPIRone (BUSPAR) 5 mg tablet Take 1 tablet by mouth every 12 hours. folic acid 400 mcg tablet Folic Acid 400mg Active (Patient not taking: Reported on 06/06/2024) albuterol HFA 90 mcg/actuation HFA Inhale as instructed. estradiol (ESTRACE) 0.01 % (0.1 mg/gram) vaginal cream (Patient not taking: Reported on 04/11/2024) famotidine (PEPCID) 20 mg tablet Take 20 mg by mouth twice daily. cholecalciferol, vitamin D3, (VITAMIN D3 ORAL) Take 400 mg by mouth. No current facility-administered medications for this visit. Medications and allergies reviewed by this provider. SOCIAL HISTORY Social History Tobacco Use Smoking status: Never Smokeless tobacco: Never Vaping Use Vaping status: Never Used Substance Use Topics Alcohol use: Not Currently Drug use: Never REVIEW OF SYSTEMS All other reviewed and negative other than HPI. OBJECTIVE: BP 136/72 Pulse 70 Resp 18 Ht 165 cm (5' 4.96) Wt 67 kg (147 lb 12.8 oz) SpO2 95% BMI 24.62 kg/m? . Vital signs reviewed by this provider. APPEARANCE Well appearing, alert, in no acute distress, well-hydrated, well nourished. EYES conjunctiva and sclera normal. HEART RRR with normal S1 and S2, no murmurs, no gallops, no JVD appreciated LUNG clear to auscultation. No wheezes, rhonchi or rales EXTREMITIES Extremities normal, No deformities, No skin discoloration, and No edema SKIN Skin color, texture, turgor normal, no suspicious rashes or lesions to exposed skin Latest Ref Rn 01/03/2024 WBC 3.70 - 11.00 k/uL 7.76 RBC 3.90 - 5.20 m/uL 4.30 Hemoglobin 11.5 - 15.5 g/dL 13.1 Hematocrit 36.0 - 46.0 % 40.1 MCV 80.0 - 100.0 fL 93.3 MCH 26.0 - 34.0 pg 30.5 MCHC 30.5 - 36.0 g/dL 32.7 RDW-CV 11.5 - 15.0 % 14.9 Platelet Count 150 - 400 k/uL 279 MPV 9.0 - 12.7 fL 12.3 Neut% % 61.5 Abs Neut (ANC) 1.45 - 7.50 k/uL 4.77 Lymph% % 25.6 Abs Lymph 1.00 - 4.00 k/uL 1.99 Cloud% % 9.0 Abs Cloud <0.87 k/uL 0.70 Eosin% % 3.1 Abs Eosin <0.46 k/uL 0.24 Baso% % 0.3 Abs Baso <0.11 k/uL <0.03 Immature Gran % % 0.5 IMMATURE GRANS (ABS) <0.10 k/uL 0.04 NRBC /100 WBC 0.0 Absolute nRBC <0.01 k/uL <0.01 DTYPE Auto Protein, Total 6.3 - 8.0 g/dL 7.1 Albumin 3.9 - 4.9 g/dL 4.1 Calcium 8.5 - 10.2 mg/dL 9.8 Bilirubin, Total 0.2 - 1.3 mg/dL 0.4 Alkaline Phosphatase 34 - 123 U/L 45 AST 13 - 35 U/L 15 ALT 7 - 38 U/L 12 Glucose 74 - 99 mg/dL 141 (H) BUN 7 - 21 mg/dL 26 (H) Creatinine 0.58 - 0.96 mg/dL 1.21 (H) Sodium 136 - 144 mmol/L 139 Potassium 3.7 - 5.1 mmol/L 4.3 Chloride 98 - 107 mmol/L 104 CO2 22 - 30 mmol/L 24 Anion Gap 8 - 15 mmol/L 11 eGFR >=60 mL/min/1.73m? 46 (L) Hemoglobin A1C 4.3 - 5.6 % 5.8 (H) Estimated Average Glucose mg/dL 120 Legend: (H) High (L) Low Hib Vaccine(1 of 1 - Risk 1-dose series) Never done Depression Screening Never done Anxiety Screening Never done Hepatitis C Screening Never done BP Controlled (<130/80) Never done DTaP,Tdap,Td Vaccine(1 - Tdap) Never done Meningococcal B Vac (more content not included)...[facility] 06-06-2024 History of Present illness Narrative* Zara Galloway APRN.VP CLINICAL - 06/06/2024 2:45 PM EDT 06/06/2024 Patient presents with: Establish Care SUBJECTIVE: This is a 78 year old that is here today for Above Complaints.. Will be getting colonoscopy on 07/20/2024. CYNTHIA: follows with Dr. Beckford. Uses CPAP nightly. Feels refreshed when she wakes up Follows with Dr. Dang for hx of essential tremors Follows with Dr. Nava for hx of CKD. Last office visit was on 04/05/2024. Patient reports recommended follow-up was in one year Goes to allergy clinic behind [facility] for allergy injections. Reports she uses an albuterol inhaler at times as well HTN: Patient is compliant with meds Yes Monitors bp at home: No. Denies side effects: Yes. Chest pain: No. Dyspnea: No. Edema: No. Palpitations: No. Syncope: No. Headache: No. Dizziness: No. HYPERLIPIDEMIA: Patient is taking medications: takes fenofibrate . Patient is watching diet: Yes. Patient denies myalgias: Yes. Patient denies gi upset: Yes Past medical, surgical, family, social hx, medications, allergies and health maintenance reviewed and updated PAST MEDICAL HISTORY Diagnosis Date Anal condyloma Essential hypertension History of ITP History of skin cancer Mixed hyperlipidemia CYNTHIA (obstructive sleep apnea) Stage 2 chronic kidney disease ALLERGIES Adhesive Tape-Silicones, Beef Containing Products, Beta-Blockers (Beta-Adrenergic Blocking Agts), Black Pepper, Cat Dander, Horse Dander, Mushroom, Penicillins, Seasonal Allergies, and Uqmkyny-Pwr-Eph Reductase Inhibitors MEDICATIONS Current Outpatient Medications Medication Sig lisinopril (ZESTRIL) 20 mg tablet Take 1 tablet by mouth two times a day. fenofibrate nanocrystallized (TRICOR) 145 mg tablet Take 1 tablet by mouth once daily. propranolol (INDERAL) 10 mg tablet 2 tablets Orally twice a day busPIRone (BUSPAR) 5 mg tablet Take 1 tablet by mouth every 12 hours. folic acid 400 mcg tablet Folic Acid 400mg Active (Patient not taking: Reported on 06/06/2024) albuterol HFA 90 mcg/actuation HFA Inhale as instructed. estradiol (ESTRACE) 0.01 % (0.1 mg/gram) vaginal cream (Patient not taking: Reported on 04/11/2024) famotidine (PEPCID) 20 mg tablet Take 20 mg by mouth twice daily. cholecalciferol, vitamin D3, (VITAMIN D3 ORAL) Take 400 mg by mouth. No current facility-administered medications for this visit. Medications and allergies reviewed by this provider. SOCIAL HISTORY Social History Tobacco Use Smoking status: Never Smokeless tobacco: Never Vaping Use Vaping status: Never Used Substance Use Topics Alcohol use: Not Currently Drug use: Never REVIEW OF SYSTEMS All other reviewed and negative other than HPI. OBJECTIVE: BP 136/72 Pulse 70 Resp 18 Ht 165 cm (5' 4.96) Wt 67 kg (147 lb 12.8 oz) SpO2 95% BMI 24.62 kg/m . Vital signs reviewed by this provider. APPEARANCE Well appearing, alert, in no acute distress, well-hydrated, well nourished. EYES conjunctiva and sclera normal. HEART RRR with normal S1 and S2, no murmurs, no gallops, no JVD appreciated LUNG clear to auscultation. No wheezes, rhonchi or rales EXTREMITIES Extremities normal, No deformities, No skin discoloration, and No edema SKIN Skin color, texture, turgor normal, no suspicious rashes or lesions to exposed skin Latest Ref Rng 01/03/2024 WBC 3.70 - 11.00 k/uL 7.76 RBC 3.90 - 5.20 m/uL 4.30 Hemoglobin 11.5 - 15.5 g/dL 13.1 Hematocrit 36.0 - 46.0 % 40.1 MCV 80.0 - 100.0 fL 93.3 MCH 26.0 - 34.0 pg 30.5 MCHC 30.5 - 36.0 g/dL 32.7 RDW-CV 11.5 - 15.0 % 14.9 Platelet Count 150 - 400 k/uL 279 MPV 9.0 - 12.7 fL 12.3 Neut% % 61.5 Abs Neut (ANC) 1.45 - 7.50 k/uL 4.77 Lymph% % 25.6 Abs Lymph 1.00 - 4.00 k/uL 1.99 Cloud% % 9.0 Abs Cloud <0.87 k/uL 0.70 Eosin% % 3.1 Abs Eosin <0.46 k/uL 0.24 Baso% % 0.3 Abs Baso <0.11 k/uL <0.03 Immature Gran % % 0.5 IMMATURE GRANS (ABS) <0.10 k/uL 0.04 NRBC /100 WBC 0.0 Absolute nRBC <0.01 k/uL <0.01 DTYPE Auto Protein, Total 6.3 - 8.0 g/dL 7.1 Albumin 3.9 - 4.9 g/dL 4.1 Calcium 8.5 - 10.2 mg/dL 9.8 Bilirubin, Total 0.2 - 1.3 mg/dL 0.4 Alkaline Phosphatase 34 - 123 U/L 45 AST 13 - 35 U/L 15 ALT 7 - 38 U/L 12 Glucose 74 - 99 mg/dL 141 (H) BUN 7 - 21 mg/dL 26 (H) Creatinine 0.58 - 0.96 mg/dL 1.21 (H) Sodium 136 - 144 mmol/L 139 Potassium 3.7 - 5.1 mmol/L 4.3 Chloride 98 - 107 mmol/L 104 CO2 22 - 30 mmol/L 24 Anion Gap 8 - 15 mmol/L 11 eGFR >=60 mL/min/1.73m 46 (L) Hemoglobin A1C 4.3 - 5.6 % 5.8 (H) Estimated Average Glucose mg/dL 120 Legend: (H) High (L) Low Hib Vaccine(1 of 1 - Risk 1-dose series) Never done Depression Screening Never done Anxiety Screening Never done Hepatitis C Screening Never done BP Controlled (<130/80) Never done DTaP,Tdap,Td Vaccine(1 - Tdap) Never done Meningococcal B Vaccine(3 of 5 - Increased Risk Trumenba 3-dose series) due on 04/08/2018 Shingrix Vaccine(2 of 3) due on 08/29/2019 RSV Vaccine(1 - 1-dose 75+ series) Never done Meningococcal Conjugate Vaccine(3 - Risk 2-dose series) due on 06/14/2022 Influenza Vaccine(1) due on 10/30/2023 Covid-19 Vaccine( - season) due on 10/30/2023 Advance Directive Discussion Never done Serum Creatinine due on 01/02/2025 Hemoglobin/Hematocrit due on 01/02/2025 Annual PCP Team Chronic Disease Visit due on 06/06/2025 Diabetes Screening due on 01/02/2027 Bone Density Screening Completed Pneumococcal Vaccine: 50+ Completed ASSESSMENT/PLAN: 1. Encounter to establish care - ICD9: V65.8, ICD10: Z76.89 (primary diagnosis) - follow-up in 6 months for routine visit 2. Mixed hyperlipidemia - ICD9: 272.2, ICD10: E78.2 - Control undetermined, due for labs - Continue current medications - Counseled on healthy diet and regular exercise - Follow up in 6 months, sooner should any other issues arise. - LIPID PANEL, FASTING 3. Hypertension, essential - ICD9: 401.9, ICD10: I10 - Controlled - Continue current medications - Recommend home blood pressure monitoring, to bring results to next visit - Encouraged sodium restriction, DASH or Mediterranean diet - Recommend regular aerobic exercise - Follow up in 6 months for hypertension visit - COMPREHENSIVE METABOLIC PANEL 4. CYNTHIA (obstructive sleep apnea) - ICD9: 327.23, ICD10: G47.33 - continue nightly CPAP use - follow-up with Dr. Beckford as recommended 5. H/O splenectomy - ICD9: V45.79, ICD10: Z90.81 - will obtain old records to determine what vaccines she needs 6. Essential tremor - ICD9: 333.1, ICD10: G25.0 - follow-up with Dr. Dang as recommended 7. Stage 3 chronic kidney disease, unspecified whether stage 3a or 3b CKD (HCC) - ICD9: 585.3, ICD10: N18.30 - eGFR: 46 Due for labs - Counseled on avoiding NSAIDs, adequate hydration - Counseled on low sodium diet - ACEi/ARB prescribed: Yes - Follow up with kidney medicine Zara Galloway APRN.VP CLINICAL Prescription instructions reviewed with patient as applicable. Patient advised if symptoms do not improve or if symptoms worsen sooner, to contact their primary care physician. Potential red flag symptoms discussed with the patient. Reviewed appropriate action plan to take if red flag symptoms occur. Patient agreeable to treatment plan. documented [facility] Evaluation note* Diagnosis Onset Date Resolution Status Admit Date Fatigue chronic May 14 9:59am Fatigue chronic June 12 1:32pm Fatigue chronic July 16, 2024 9:59am [employer] Work Phone: 1(582) 614-952203-11-2025 Telephone encounter Note* Telephone Encounter - Radha Macias RN - 05/08/2024 9:58 AM EDT CRC returning pt's VM needing to r/s her Dr. Lockwood appointment. CRC messaged Thien Scott on pt's behalf and gave pt their office number. Radha Macias RN [facility]03-11-2025 Miscellaneous Notes* Telephone Encounter - Radha Macias RN - 05/08/2024 9:58 AM EDT CRC returning pt's VM needing to r/s her Dr. Lockwood appointment. CRC messaged Thien Scott on pt's behalf and gave pt their office number. Radha Macias RN documented in this encounterOhio[facility]02-12-[facility]25 NoteHNO ID: [id number] Author: NELSON TORREZ MD Service: ? Author Type: Physician Type: Progress Notes Filed: 04/11/2024 13:27 Note Text: FOLLOW UP VISIT NAME: [facility] NO.: [id number] DATE OF SERVICE: 04/11/2024 : 1945 REFERRING PHYSICIAN: Seferino Bita is a patient I am following for a lipoma versus sebaceous cyst in the right axillary region and a skin lesion on her left forearm. I performed excision of her right axillary site and then excision of the left forearm lesion on February 15, 2024. Pathology returned as: FINAL DIAGNOSIS A. Skin, left arm, excision: - Basal cell carcinoma, superficial and nodular types, see comment. B. Skin, right axillary, excision: - Epidermal inclusion cyst, ruptured. Diagnosis Comment A. The basal cell carcinoma is present at one peripheral margin of the excision specimen. Clinical correlation is recommended. The patient notes all sites are healing well with no complaints VITALS: Blood pressure 168/76, pulse 70, SpO2 97%. On examination, the right axillary site and the left forearm site are healing with no signs of residual concerns Assessment IMPRESSION: Ruptured sebaceous cyst right axilla and left forearm basal cell carcinoma extending to 1 peripheral antonio PLAN: If the patient notes any problems or signs of recurrence at the left forearm site, the patient should contact me immediately. We discussed the signs of a raised site or nodularity as a suspicious finding. We discussed the option of reexcision even though I felt clinically I excised the site completel She wishes to follow the site and not have it reexcised currently. Diagnoses: (C44.619) Basal cell carcinoma (BCC) of left upper arm (primary encounter diagnosis) Return to Clinic: The patient is instructed to follow-up with me as needed. [facility]02-12[facility] History of Present illness Narrative* Nelson Torrez MD - 04/11/2024 1:06 PM EST FOLLOW UP VISIT NAME: [facility] NO.: [id number] DATE OF SERVICE: 04/11/2024 : 1945 REFERRING PHYSICIAN: Seferino Bita is a patient I am following for a lipoma versus sebaceous cyst in the right axillary region arpit skin lesion on her left forearm. I performed excision of her right axillary site and then excision of the left forearm lesion on February 15, 2024. Pathology returned as: FINAL DIAGNOSIS A. Skin, left arm, excision: - Basal cell carcinoma, superficial and nodular types, see comment. B. Skin, right axillary, excision: - Epidermal inclusion cyst, ruptured. Diagnosis Comment A. The basal cell carcinoma is present at one peripheral margin of the excision specimen. Clinical correlation is recommended. The patient notes all sites are healing well with no complaints VITALS: Blood pressure 168/76, pulse 70, SpO2 97%. On examination, the right axillary site and the left forearm site are healing with no signs of residual concerns Assessment IMPRESSION: Ruptured sebaceous cyst right axilla and left forearm basal cell carcinoma extending to1 peripheral antonio PLAN: If the patient notes any problems or signs of recurrence at the left forearm site, the patient should contact me immediately. We discussed the signs of a raised site or nodularity as a suspicious finding. We discussed the option of reexcision even though I felt clinically I excised the site completel She wishes to follow the site and not have it reexcised currently. Diagnoses: (C44.619) Basal cell carcinoma (BCC) of left upper arm (primary encounter diagnosis) Return to Clinic: The patient is instructed to follow-up with me as needed. Nelson Torrez MD documented in this encounterOhio[facility]-12-[facility] Evaluation note* Diagnosis Onset Date Resolution Status Admit Date Fatigue chronic April 11, 2024 11:00am Fatigue chronic May 14 9:59am Fatigue chronic June 12 1:32pm [facility] Work Phone: 1(932) 439-633001-15-2025 Telephone encounter Note* Telephone Encounter - Marcy Scott - 03/14/2024 2:54 PM EST A Consult to Physical Therapy ( Pelvic Floor Therapy) has been faxed. Confirmation number: [id number] Marcy Scott [facility]01-15-2025 Miscellaneous Notes* Telephone Encounter - Marcy Scott - 03/14/2024 2:54 PM EST A Consult to Physical Therapy ( Pelvic Floor Therapy) has been faxed. Confirmation number: [id number] Marcy Scott documented in this encounterOhio[facility]01-15-2025 Telephone encounter Note * Telephone Encounter - Marcy Scott - 03/14/2024 2:18 PM EST Surgery Checklist Type: COLONOSCOPY Admission Type: outpatient Anesthesia: MAC Date: 05/25/24 Arrival Time: 10:00 AM Surgery Time: 11:00 AM Location: [place] Prep given at appointment. Marcy Scott [facility]01-15-2025 Miscellaneous Notes* Telephone Encounter - Marcy Scott - 03/14/2024 2:18 PM EST Surgery Checklist Type: COLONOSCOPY Admission Type: outpatient Anesthesia: MAC Date: 05/25/24 Arrival Time: 10:00 AM Surgery Time: 11:00 AM Location: [place] Prep given at appointment. Marcy Scott documented in this encounterOhio[facility]01-15-2025 NoteHNO ID: [id number] Author: ENMANUEL LOCKWOOD MD Service: ? Author Type: Physician Type: Progress Notes Filed: 03/14/2024 14:05 Note Text: Enmanuel Lockwood M.D. Colon AND Rectal Surgery [address] [facility], [address] [place], [place] [address] RACH Thompson is a 78 year old White female with history of perianal condyloma and need for screening colonoscopy HPI Since I last saw her years ago, she is overall doing well, but does note slowly progressive constipation. She feels that when the stool comes down it is hard to get out and sometimes it feels like a trapdoor is blocking her. This is more problematic with a hard stools and a soft stool. She was put on MiraLAX at a point in the past but did not find this very helpful and is currently not on any bowel regimen. She does note some urgency of stool and even more urgency for urination. She does note that for a few years after the excision of condyloma in 2019 she felt her constipation was better but then it slowly came back to the problematic function She has had multiple prior colonoscopies with multiple polyps on the last 2 colonoscopies Review of Systems Constitutional: Negative for chills, fever and weight loss. Respiratory: Negative for shortness of breath and wheezing. Cardiovascular: Negative for chest pain and palpitations. Gastrointestinal: Negative for abdominal pain, blood in stool, constipation, diarrhea, heartburn, melena, nausea and vomiting. PAST MEDICAL HISTORY Diagnosis Date Anal condyloma Essential hypertension History of ITP History of skin cancer Mixed hyperlipidemia CYNTHIA (obstructive sleep apnea) Stage 2 chronic kidney disease PAST SURGICAL HISTORY Procedure Laterality Date BACK SURGERY HX L4-5, fx spine LAPAROSCOPIC SPLENECTOMY REMOVAL GALLBLADDER TOTAL ABDOM HYSTERECTOMY 1997 Social History Tobacco Use Smoking status: Never Smokeless tobacco: Never Vaping Use Vaping status: Never Used Substance Use Topics Alcohol use: Not Currently Drug use: Never FAMILY HISTORY Problem Relation Age of Onset Hypertension Mother Tremor Mother other (smoker) Mother Colon Cancer Father Cancer Father colon Hyperlipidemia Father other (smoker) Father The ROS, medical, surgical, family, and social history were reviewed by Enmanuel Lockwood MD ALLERGIES Allergen Reactions Adhesive Tape-Silic* Unknown Beef Containing Pro* Other: See Comments Beta-Blockers (Beta* Intolerance Black Pepper Unknown Cat Dander Other: See Comments Horse Dander Other: See Comments Mushroom Rash Penicillins Hives Seasonal Allergies Unknown Uzbmuxo-Nja-Fvr Red* GI Upset Current Outpatient Medications Medication Sig fenofibrate nanocrystallized (TRICOR) 145 mg tablet Take 1 tablet by mouth once daily. propranolol (INDERAL) 10 mg tablet 2 tablets Orally twice a day busPIRone (BUSPAR) 5 mg tablet Take 1 tablet by mouth every 12 hours. folic acid 400 mcg tablet Folic Acid 400mg Active albuterol HFA 90 mcg/actuation HFA Inhale as instructed. lisinopril (ZESTRIL, PRINIVIL) 20 mg tablet Take 20 mg by mouth twice daily. estradiol (ESTRACE) 0.01 % (0.1 mg/gram) vaginal cream famotidine (PEPCID) 20 mg tablet Take 20 mg by mouth twice daily. cholecalciferol, vitamin D3, (VITAMIN D3 ORAL) Take 400 mg by mouth. No current facility-administered medications for this visit. OBJECTIVE BP 189/77 (BP Site: Left Arm, BP Position: Sitting, BP Cuff Size: Regular Adult) Pulse 78 Ht 165.1 cm (5' 5) Wt 68 kg (150 lb) BMI 24.96 kg/m? BMI 24.96 kg/(m2) Physical Exam Constitutional: General: She is not in acute distress. Appearance: Normal appearance. She is not ill-appearing. Cardiovascular: Rate and Rhythm: Normal rate and regular rhythm. Heart sounds: Normal heart sounds. No murmur heard. No friction rub. No gallop. Pulmonary: Effort: Pulmonary effort is normal. No respiratory distress. Breath sounds: Normal breath sounds. No wheezing or rales. Abdominal: General: There is no distension. Palpations: Abdomen is soft. There is no hepatomegaly. Tenderness: There is no abdominal tenderness. Musculoskeletal: General: No deformity. Normal range of motion. Skin: General: Skin is warm and dry. Findings: No rash. Neurological: Mental Status: She is alert. Coordination: Coordination normal. Gait: Gait normal. Psychiatric: Mood and Affect: Mood normal. Judgment: Judgment normal. Hemoglobin (g/dL) Date Value 01/03/2024 13.1 Hematocrit (%) Date Value 01/03/2024 40.1 WBC (k/uL) Date Value 01/03/2024 7.76 Platelet Count (k/uL) Date Value 01/03/2024 279 Creatinine Date Value Ref Range Status 01/03/2024 1.21 (H) 0.58 - 0.96 mg/dL Final AST Date Value Ref Range Status 01/03/2024 15 13 - 35 U/L Final ALT Date Value Ref Range Status 01/03/2024 12 7 - 38 U/L Final Bilirubin, Total (mg/dL) Date Nena (more content not included)...[facility]01-15-2025 History of Present illness Narrative* Enmanuel Lockwood MD - 03/14/2024 1:13 PM EST Images from the original note were not included. Enmanuel Lockwood M.D. Colon & Rectal Surgery [address] [facility], [address] [place] [address] SUBJECTIVE Bita Thompson is a 78 year old White female with history of perianal condyloma and need for screening colonoscopy HPI Since I last saw her years ago, she is overall doing well, but does note slowly progressive constipation. She feels that when the stool comes down it is hard to get out and sometimes it feels like a trapdoor is blocking her. This is more problematic with a hard stools and a soft stool. She was put on MiraLAX at a point in the past but did not find this very helpful and is currently not on any bowel regimen. She does note some urgency of stool and even more urgency for urination. She does note that for a few years after the excision of condyloma in 2019 she felt her constipation was better but then it slowly came back to the problematic function She has had multiple prior colonoscopies with multiple polyps on the last 2 colonoscopies Review of Systems Constitutional: Negative for chills, fever and weight loss. Respiratory: Negative for shortness of breath and wheezing. Cardiovascular: Negative for chest pain and palpitations. Gastrointestinal: Negative for abdominal pain, blood in stool, constipation, diarrhea, heartburn, melena, nausea and vomiting. PAST MEDICAL HISTORY Diagnosis Date Anal condyloma Essential hypertension History of ITP History of skin cancer Mixed hyperlipidemia CYNTHIA (obstructive sleep apnea) Stage 2 chronic kidney disease PAST SURGICAL HISTORY Procedure Laterality Date BACK SURGERY HX L4-5, fx spine LAPAROSCOPIC SPLENECTOMY REMOVAL GALLBLADDER TOTAL ABDOM HYSTERECTOMY 1997 Social History Tobacco Use Smoking status: Never Smokeless tobacco: Never Vaping Use Vaping status: Never Used Substance Use Topics Alcohol use: Not Currently Drug use: Never FAMILY HISTORY Problem Relation Age of Onset Hypertension Mother Tremor Mother other (smoker) Mother Colon Cancer Father Cancer Father colon Hyperlipidemia Father other (smoker) Father The ROS, medical, surgical, family, and social history were reviewed by Enmanuel Lockwood MD ALLERGIES Allergen Reactions Adhesive Tape-Silic* Unknown Beef Containing Pro* Other: See Comments Beta-Blockers (Beta* Intolerance Black Pepper Unknown Cat Dander Other: See Comments Horse Dander Other: See Comments Mushroom Rash Penicillins Hives Seasonal Allergies Unknown Dyauhug-Urr-Dxw Red* GI Upset Current Outpatient Medications Medication Sig fenofibrate nanocrystallized (TRICOR) 145 mg tablet Take 1 tablet by mouth once daily. propranolol (INDERAL) 10 mg tablet 2 tablets Orally twice a day busPIRone (BUSPAR) 5 mg tablet Take 1 tablet by mouth every 12 hours. folic acid 400 mcg tablet Folic Acid 400mg Active albuterol HFA 90 mcg/actuation HFA Inhale as instructed. lisinopril (ZESTRIL, PRINIVIL) 20 mg tablet Take 20 mg by mouth twice daily. estradiol (ESTRACE) 0.01 % (0.1 mg/gram) vaginal cream famotidine (PEPCID) 20 mg tablet Take 20 mg by mouth twice daily. cholecalciferol, vitamin D3, (VITAMIN D3 ORAL) Take 400 mg by mouth. No current facility-administered medications for this visit. OBJECTIVE BP 189/77 (BP Site: Left Arm, BP Position: Sitting, BP Cuff Size: Regular Adult) Pulse 78 Ht 165.1 cm (5' 5) Wt 68 kg (150 lb) BMI 24.96 kg/m BMI 24.96 kg/(m^2) Physical Exam Constitutional: General: She is not in acute distress. Appearance: Normal appearance. She is not ill-appearing. Cardiovascular: Rate and Rhythm: Normal rate and regular rhythm. Heart sounds: Normal heart sounds. No murmur heard. No friction rub. No gallop. Pulmonary: Effort: Pulmonary effort is normal. No respiratory distress. Breath sounds: Normal breath sounds. No wheezing or rales. Abdominal: General: There is no distension. Palpations: Abdomen is soft. There is no hepatomegaly. Tenderness: There is no abdominal tenderness. Musculoskeletal: General: No deformity. Normal range of motion. Skin: General: Skin is warm and dry. Findings: No rash. Neurological: Mental Status: She is alert. Coordination: Coordination normal. Gait: Gait normal. Psychiatric: Mood and Affect: Mood normal. Judgment: Judgment normal. Hemoglobin (g/dL) Date Value 01/03/2024 13.1 Hematocrit (%) Date Value 01/03/2024 40.1 WBC (k/uL) Date Value 01/03/2024 7.76 Platelet Count (k/uL) Date Value 01/03/2024 279 Creatinine Date Value Ref Range Status 01/03/2024 1.21 (H) 0.58 - 0.96 mg/dL Final AST Date Value Ref Range Status 01/03/2024 15 13 - 35 U/L Final ALT Date Value Ref Range Status 01/03/2024 12 7 - 38 U/L Final Bilirubin, Total (mg/dL) Date Value 01/03/2024 0.4 WBC (k/uL) Date Value 01/03/2024 7.76 RBC (m/uL) Date Value 01/03/2024 4.30 %DIG,%DBS Plan ASSESSMENT/PLAN: 1. Outlet dysfunction constipation - ICD9: 564.02, ICD10: K59.02 (primary diagnosis) - BFB TRAING W/EMG&AMP;/MANOMETRY EA ADDL 15 MIN CNTCT The symptoms have been slowly progressive and I do think it would be helpful for her to try pelvic floor physical therapy. She does also have urinary symptoms and if these were not to improve we could consider further workup including urogynecology referral. 2. Encounter for screening for malignant neoplasm of colon - ICD9: V76.51, ICD10: Z12.11 She is due for screening colonoscopy we will set this up at her earliest convenience. Risks, alternatives and benefits of the planned procedure were fully discussed with the patient. Risks include but are not limited to perforation, bleeding potentially requiring transfusion with inherent risks, enteric leak, and . Also discussed cardiovascular risks and pulmonary risks. The patient seems to understand and agrees to proceed. All questions answered. Informed consent obtained. Follow up: No follow-ups on file. Enmanuel Lockwood M.D. Please Note: This office note has been created using Fort[employer], a speech recognition software program, and may contain errors including punctuation, grammar, spelling, gender, and inappropriate words or phrases that pertain to the sytem. documented in this encounterOhio[facility]12-19-2024 NoteHNO ID: [id number] Author: NELSON TORREZ MD Service: ? Author Type: Physician Type: Progress Notes Filed: 02/24/2024 04:52 Note Text: FOLLOW UP VISIT - SKIN LESION NAME: [facility] NO.: [id number] DATE OF SERVICE: 02/15/2024 : 1945 REFERRING PHYSICIAN: Indio Medina MD Bita is a patient I am following for a a sebaceous cyst in her right axilla that became inflamed and complaint of a slightly discolored area on her left forearm. Bita returns today for the procedure. Bita has not taken aspirin or aspirin products for the past 7 days. VITALS: There were no vitals taken for this visit. On examination, the sebaceous cyst was resolved and is currently approximately 1/2 mm in size. There are 2 areas on her left forearm consistent with slightly exophytic seborrheic keratoses PROCEDURE: EXCISION OF SKIN LESION The risks, benefits and anticipated outcomes of the procedure, the risks and benefits of the alternatives to the procedure, and the roles and tasks of the personnel to be involved, were discussed with the patient, and the patient consents to the procedure and agrees to proceed. I verify that I personally obtained the patient's consent. The patient`s skin was prepped and draped in the usual fashion. A combination of Lidocaine and Marcaine was injected into the skin. An elliptical incision was made around the lesion and was removed in its entirety. The specimen measured 0.5 by 0.5 cm. This was sent to pathology. The skin was then closed with interrupted 5-0 nylon sutures. The patient tolerated the procedure well. PROCEDURE: EXCISION OF SEBACEOUS CYST - RIGHT AXILLA The risks, benefits and anticipated outcomes of the procedure, the risks and benefits of the alternatives to the procedure, and the roles and tasks of the personnel to be involved, were discussed with the patient, and the patient consents to the procedure and agrees to proceed. I verify that I personally obtained the patient's consent. The patient`s skin was prepped and draped in the usual fashion. A combination of Lidocaine and Marcaine was injected into the skin. An eliptical incision was made over the sebaceous cyst. The sebaceous cyst was dissected from it's subcutaneous attachments and removed in its entirety. The specimen measured 0.5 by 0.5 cm. This was sent to pathology. The skin was then closed with interrupted 4-0 nylon sutures. The patient tolerated the procedure well. Assessment IMPRESSION: Status post excision of skin lesion left forearm and status post excision of right axillary sebaceous cyst PLAN: If the patient notes any problems or signs of wound infections, the patient should contact me immediately. The patient is to follow up in approximately 7 days for suture removal. Diagnoses: (L72.9) Skin cyst (primary encounter diagnosis) (L98.9) Skin lesion of left arm Return to Clinic: The patient is instructed to follow-up with my staff in one week. [facility]12[facility] History of Present illness Narrative* Nelson Torrez MD - 02/16/2024 7:48 PM EST FOLLOW UP VISIT - SKIN LESION NAME: [facility] NO.: [id number] DATE OF SERVICE: 02/15/2024 : 1945 REFERRING PHYSICIAN: Indio Medina MD Bita is a patient I am following for a a sebaceous cyst in her right axilla that became inflamed andcomplaint of a slightly discolored area on her left forearm. Bita returns today for the procedure. Bita has not taken aspirin or aspirin products for the past 7 days. VITALS: There were no vitals taken for this visit. On examination, the sebaceous cyst was resolved and is currently approximately 1/2 mm in size. There are 2 areas on her left forearm consistent with slightly exophytic seborrheic keratoses PROCEDURE: EXCISION OF SKIN LESION The risks, benefits and anticipated outcomes of the procedure, the risks and benefits of the alternatives to the procedure, and the roles and tasks of the personnel to be involved, were discussed with the patient, and the patient consents to the procedure and agrees to proceed. I verify that I personally obtained the patient's consent. The patient`s skin was prepped and draped in the usual fashion. A combination of Lidocaine and Marcaine was injected into the skin. An elliptical incision was made around the lesion and was removed in its entirety. The specimen measured 0.5 by 0.5 cm. This was sent to pathology. The skin was then closed with interrupted 5-0 nylon sutures. The patient tolerated the procedure well. PROCEDURE: EXCISION OF SEBACEOUS CYST - RIGHT AXILLA The risks, benefits and anticipated outcomes of the procedure, the risks and benefits of the alternatives to the procedure, and the roles and tasks of the personnel to be involved, were discussed with the patient, and the patient consents to the procedure and agrees to proceed. I verify that I personally obtained the patient's consent. The patient`s skin was prepped and draped in the usual fashion. A combination of Lidocaine and Marcaine was injected into the skin. An eliptical incision was made over the sebaceous cyst. The sebaceous cyst was dissected from it's subcutaneous attachments and removed in its entirety. The specimen measured 0.5 by 0.5 cm. This was sent to pathology. The skin was then closed with interrupted 4-0 nylon sutures. The patient tolerated the procedure well. Assessment IMPRESSION: Status post excision of skin lesion left forearm and status post excision of right axillary sebaceous cyst PLAN: If the patient notes any problems or signs of wound infections, the patient should contact me immediately. The patient is to follow up in approximately 7 days for suture removal. Diagnoses: (L72.9) Skin cyst (primary encounter diagnosis) (L98.9) Skin lesion of left arm Return to Clinic: The patient is instructed to follow-up with my staff in one week. Nelson Torrez MD documented in this encounterOhiohealth [facility]12-[facility]-2024 NoteHNO ID: [id number] Author: TAD BIGGS RN Service: ? Author Type: Registered Nurse Type: Procedures Filed: 02/15/2024 15:03 Note Text: UNIVERSAL PROTOCOL / SAFETY CHECKLIST Procedure to be Performed: Excision of right axillary sebaceous cyst, excision of left forearm skin lesion Sign In: A Moment of CARE was completed. Personnel directly involved with the procedure wore the appropriate PPE (Personal Protective Equipment). No special equipment needed. Patient/Surrogate Stated/Verified: PATIENT VERIFIED(optional for EMERGENT procedures): Patient name, Date of , Relevant allergies, and The intended procedure Time Out Communication: Intended patient and procedure match the source documents. Consent documented and matches the intended procedure. Relevant labs, photos, and/or imaging studies have been reviewed. Correct side/site marked and visible. Medications required for procedure verified. No fire risk assessment and interventions applicable. No implant(s) inserted. Sign Out: SIGN OUT (optional for EMERGENT procedures): All specimen containers correctly labeled. All instruments, equipment, possible retained foreign bodies accounted for. Post-procedure follow-up management communicated and Plan of Care Visit completed when applicable. [facility] note* Tad Biggs RN - 02/15/2024 2:40 PM EST UNIVERSAL PROTOCOL / SAFETY CHECKLIST Procedure to be Performed: Excision of right axillary sebaceous cyst, excision of left forearm skinlesion Sign In: A Moment of CARE was completed. Personnel directly involved with the procedure wore the appropriate PPE (Personal Protective Equipment). No special equipment needed. Patient/Surrogate Stated/Verified: PATIENT VERIFIED(optional for EMERGENT procedures): Patient name, Date of , Relevant allergies, and The intended procedure Time Out Communication: Intended patient and procedure match the source documents. Consent documented and matches the intended procedure. Relevant labs, photos, and/or imaging studies have been reviewed. Correct side/site marked and visible. Medications required for procedure verified. No fire risk assessment and interventions applicable. No implant(s) inserted. Sign Out: SIGN OUT (optional for EMERGENT procedures): All specimen containers correctly labeled. All instruments, equipment, possible retained foreign bodies accounted for. Post-procedure follow-up management communicated and Plan of Care Visit completed when applicable. Tad Biggs RN [facility]12-18-2024 Procedure note* Tad Biggs RN - 02/15/2024 2:40 PM EST UNIVERSAL PROTOCOL / SAFETY CHECKLIST Procedure to be Performed: Excision of right axillary sebaceous cyst, excision of left forearm skinlesion Sign In: A Moment of CARE was completed. Personnel directly involved with the procedure wore the appropriate PPE (Personal Protective Equipment). No special equipment needed. Patient/Surrogate Stated/Verified: PATIENT VERIFIED(optional for EMERGENT procedures): Patient name, Date of , Relevant allergies, and The intended procedure Time Out Communication: Intended patient and procedure match the source documents. Consent documented and matches the intended procedure. Relevant labs, photos, and/or imaging studies have been reviewed. Correct side/site marked and visible. Medications required for procedure verified. No fire risk assessment and interventions applicable. No implant(s) inserted. Sign Out: SIGN OUT (optional for EMERGENT procedures): All specimen containers correctly labeled. All instruments, equipment, possible retained foreign bodies accounted for. Post-procedure follow-up management communicated and Plan of Care Visit completed when applicable. Tad Biggs RN documented in this encounterOhiohealth [facility]12-18-2024 Instructions* Patient Instructions* Tad Biggs RN - 02/15/2024 2:36 PM EST The following instructions are important for you related to your office visit today with the [facility] General Surgeons. Instructions After SKIN EXCISION-SUTURES You can remove the dressing in two days. If the dressing becomes soaked or had significant drainage, the dressing should be changed. If there is minor bleeding from this skin edge, you should hold pressure on the incision until the bleeding stops. If there is continued bleeding, you should contact our office immediately. You do not need to leave a dressing on the wound after two days. If the wound shows signs of redness, inflammation, or purulent drainage, you should contact our office immediately. You should keep the wound dry for the first two days. After that time, you may wash the wound with gentle soap and water. The wound should not be immersed in a pool, bathtub, or even hot tub. We prefer to check the incision and remove the stitches in our office when ready. Please make an appointment to return to our office in 7-10 days for suture removal. Please do not remove the stitches yourself without approval from our office. If you note any additional difficulties, questions, or concerns, you should contact our office immediately @ [phone] and ask to be transferred to the General Surgery department. documented in this encounterOhiohealth [facility]11-22-2024 NoteHNO ID: [id number] Author: NELSON TORREZ MD Service: ? Author Type: Physician Type: Progress Notes Filed: 01/20/2024 17:36 Note Text: HISTORY AND PHYSICAL Bita Thompson 1945 REFERRING PHYSICIAN: Zara Galloway APRN.C* CHIEF COMPLAINT: skin lesion HPI: The patient is a 78 year old female. She notes a sebaceous cyst in her right axillary area. She has noticed this for 20 years 1 week previously the area became swollen and was uncomfortable. She notes that in the last 2 years it is swelled and then drained spontaneously twice. She was seen in family medicine was noted that it was inflamed and was started on Keflex. She presents today for consideration for excision she notes that it is no longer tender or red. The patient was referred for evaluation by Zara Galloway. SIGNIFICANT MEDICAL PROBLEMS: PAST MEDICAL HISTORY Diagnosis Date Anal condyloma Essential hypertension History of ITP History of skin cancer Mixed hyperlipidemia CYNTHIA (obstructive sleep apnea) Stage 2 chronic kidney disease OPERATIONS: PAST SURGICAL HISTORY Procedure Laterality Date BACK SURGERY HX L4-5, fx spine LAPAROSCOPIC SPLENECTOMY REMOVAL GALLBLADDER TOTAL ABDOM HYSTERECTOMY 1997 CURRENT MEDICATIONS: Current Outpatient Medications Medication Sig Dispense Refill propranolol (INDERAL) 10 mg tablet 2 tablets Orally twice a day busPIRone (BUSPAR) 5 mg tablet Take 1 tablet by mouth every 12 hours. folic acid 400 mcg tablet Folic Acid 400mg Active albuterol HFA 90 mcg/actuation HFA Inhale as instructed. lisinopril (ZESTRIL, PRINIVIL) 20 mg tablet Take 20 mg by mouth twice daily. fenofibrate nanocrystallized (TRICOR) 145 mg tablet Take 145 mg by mouth once daily. famotidine (PEPCID) 20 mg tablet Take 20 mg by mouth twice daily. cholecalciferol, vitamin D3, (VITAMIN D3 ORAL) Take 400 mg by mouth. Doxycycline Monohydrate 40 mg capsule estradiol (ESTRACE) 0.01 % (0.1 mg/gram) vaginal cream No current facility-administered medications for this visit. ALLERGIES: Beef Containing Products, Beta-Blockers (Beta-Adrenergic Blocking Agts), Black Pepper, Cat Dander, Horse Dander, Mushroom, Penicillins, Seasonal Allergies, and Jblhivw-Joy-Ttd Reductase Inhibitors PERSONAL HISTORY: Social History Tobacco Use Smoking status: Never Smokeless tobacco: Never Vaping Use Vaping status: Never Used Substance Use Topics Alcohol use: Not Currently Drug use: Never FAMILY HISTORY: FAMILY HISTORY Problem Relation Age of Onset Hypertension Mother Tremor Mother other (smoker) Mother Colon Cancer Father Cancer Father colon Hyperlipidemia Father other (smoker) Father REVIEW OF SYMPTOMS: The review of systems data was entered by the nurse and reviewed by wa Nursing Notes: Tad Biggs RN 01/18/2024 3:59 PM Signed REVIEW OF SYSTEMS: General: The patient denies fatigue, denies weight loss, denies weight gain, denies feeling hot, and denies feelings of cold. Eyes: The patient denies glaucoma, NOTES eye injury/surgery, does not wear glasses or contacts. Ear/Nose/Throat: The patient NOTES allergies, NOTES hayfever, denies ear infections, and NOTES bloody noses. Cardiovascular: The patient denies chest pain, denies heart disease, NOTES high blood pressure,denies cardiac stent, denies prior heart attack, NOTES irregular heart beat, NOTES high cholesterol, denies poor circulation, denies heart failure, other cardiac issues, NOTES claudication, denies cold feet, denies peripheral arterial stent. Respiratory: The patient denies tuberculosis, NOTES pneumonia, NOTES frequent cough, denies pulmonary embolism, denies shortness of breath, and denies coughing up blood. Gastrointestinal: The patient denies difficulty swallowing, NOTES acid reflux, denies ulcers, denies vomiting, denies jaundice/hepatitis, NOTES gallbladder problems, denies black or tarry stools, denies hemorrhoids, NOTES bleeding from rectum, NOTES diverticulitis, denies constipation, denies diarrhea, denies loss of stool control, and denies hernias. Kidney/Bladder: The patient NOTES kidney stones, NOTES urine infections, and NOTES bloody urine. Skin: The patient NOTES a history of skin cancer, denies bleeding/changing moles, and NOTES a history of skin rash. Neurologic: The patient denies a history of epilepsy/convulsions, denies headaches, NOTES head/spinal injuries, and denies stroke/TIA. Psychiatric: The patient denies psychiatric medications, denies depression, and denies voices, denies substance abuse. Endocrine: The patient denies thyroid disorders, denies diabetes, and denies hormonal problems. Hematologic: The patient NOTES a history of bruising, NOTES bleeding, and denies anemia, denies blood clots. Infections: The patient NOTES a history of measles and mumps, NOTES rheumatic fever, and denies sexually transmitted diseases. Musculoskeletal: The patient NOTES back pain/injury, d (more content not included)...[facility]11-[facility] History of Present illness Narrative* Nelson Torrez MD - 01/20/2024 5:32 PM EST HISTORY AND PHYSICAL Bita Thompson 1945 REFERRING PHYSICIAN: Zara Galloway APRN.C* CHIEF COMPLAINT: skin lesion HPI: The patient is a 78 year old female. She notes a sebaceous cyst in her right axillary area. She has noticed this for 20 years 1 week previously the area became swollen and was uncomfortable. Shenotes that in the last 2 years it is swelled and then drained spontaneously twice. She was seen in family medicine was noted that it was inflamed and was started on Keflex. She presents today for consideration for excision she notes that it is no longer tender or red. The patient was referred for evaluation by Zara Galloway. SIGNIFICANT MEDICAL PROBLEMS: PAST MEDICAL HISTORY Diagnosis Date Anal condyloma Essential hypertension History of ITP History of skin cancer Mixed hyperlipidemia CYNTHIA (obstructive sleep apnea) Stage 2 chronic kidney disease OPERATIONS: PAST SURGICAL HISTORY Procedure Laterality Date BACK SURGERY HX L4-5, fx spine LAPAROSCOPIC SPLENECTOMY REMOVAL GALLBLADDER TOTAL ABDOM HYSTERECTOMY 1997 CURRENT MEDICATIONS: Current Outpatient Medications Medication Sig Dispense Refill propranolol (INDERAL) 10 mg tablet 2 tablets Orally twice a day busPIRone (BUSPAR) 5 mg tablet Take 1 tablet by mouth every 12 hours. folic acid 400 mcg tablet Folic Acid 400mg Active albuterol HFA 90 mcg/actuation HFA Inhale as instructed. lisinopril (ZESTRIL, PRINIVIL) 20 mg tablet Take 20 mg by mouth twice daily. fenofibrate nanocrystallized (TRICOR) 145 mg tablet Take 145 mg by mouth once daily. famotidine (PEPCID) 20 mg tablet Take 20 mg by mouth twice daily. cholecalciferol, vitamin D3, (VITAMIN D3 ORAL) Take 400 mg by mouth. Doxycycline Monohydrate 40 mg capsule estradiol (ESTRACE) 0.01 % (0.1 mg/gram) vaginal cream No current facility-administered medications for this visit. ALLERGIES: Beef Containing Products, Beta-Blockers (Beta-Adrenergic Blocking Agts), Black Pepper, Cat Dander, Horse Dander, Mushroom, Penicillins, Seasonal Allergies, and Ixxchwd-Lhn-Ptt Reductase Inhibitors PERSONAL HISTORY: Social History Tobacco Use Smoking status: Never Smokeless tobacco: Never Vaping Use Vaping status: Never Used Substance Use Topics Alcohol use: Not Currently Drug use: Never FAMILY HISTORY: FAMILY HISTORY Problem Relation Age of Onset Hypertension Mother Tremor Mother other (smoker) Mother Colon Cancer Father Cancer Father colon Hyperlipidemia Father other (smoker) Father REVIEW OF SYMPTOMS: The review of systems data was entered by the nurse and reviewed by wa Nursing Notes: Tad Biggs RN 01/18/2024 3:59 PM Signed REVIEW OF SYSTEMS: General: The patient denies fatigue, denies weight loss, denies weight gain, denies feeling hot, and denies feelings of cold. Eyes: The patient denies glaucoma, NOTES eye injury/surgery, does not wear glasses or contacts. Ear/Nose/Throat: The patient NOTES allergies, NOTES hayfever, denies ear infections, and NOTES bloody noses. Cardiovascular: The patient denies chest pain, denies heart disease, NOTES high blood pressure,denies cardiac stent, denies prior heart attack, NOTES irregular heart beat, NOTES high cholesterol, denies poor circulation, denies heart failure, other cardiac issues, NOTES claudication, denies cold feet, denies peripheral arterial stent. Respiratory: The patient denies tuberculosis, NOTES pneumonia, NOTES frequent cough, denies pulmonary embolism, denies shortness of breath, and denies coughing up blood. Gastrointestinal: The patient denies difficulty swallowing, NOTES acid reflux, denies ulcers, denies vomiting, denies jaundice/hepatitis, NOTES gallbladder problems, denies black or tarry stools, denies hemorrhoids, NOTES bleeding from rectum, NOTES diverticulitis, denies constipation, denies diarrhea, denies loss of stool control, and denies hernias. Kidney/Bladder: The patient NOTES kidney stones, NOTES urine infections, and NOTES bloody urine. Skin: The patient NOTES a history of skin cancer, denies bleeding/changing moles, and NOTES a history of skin rash. Neurologic: The patient denies a history of epilepsy/convulsions, denies headaches, NOTES head/spinal injuries, and denies stroke/TIA. Psychiatric: The patient denies psychiatric medications, denies depression, and denies voices, denies substance abuse. Endocrine: The patient denies thyroid disorders, denies diabetes, and denies hormonal problems. Hematologic: The patient NOTES a history of bruising, NOTES bleeding, and denies anemia, denies blood clots. Infections: The patient NOTES a history of measles and mumps, NOTES rheumatic fever, and denies sexually transmitted diseases. Musculoskeletal: The patient NOTES back pain/injury, denies back problems, denies sciatica, NOTES knee/foot trouble, NOTES arthritis, or denies gout. When was patient's last Mammogram screening? 2013 Last Colonoscopy: NONE Tad Biggs RN PHYSICAL EXAMINATION: General: The patient is 78 year old female, well nourished, well hydrated in no acute distress. Thepatient is oriented to time, place, and person. VITALS: Blood pressure 142/80, pulse 78, temperature 36.2 C (97.1 F), height 165.1 cm (5' 5), weight 68.4 kg (150 lb 12.8 oz), SpO2 97%. Body mass index is 25.09 kg/m . HEENT: Normal cephalic, ataumatic, pupils are equally round, sclera are anicteric, mucous membranesare moist, oropharynx is clear. Neck has no masses, asymmetry or lymphadenopathy. Thyroid is unremarkable. Respiratory: Clear to auscultation and percussion. Normal respiratory excursion and pattern. Cardiac: Examination is regular rate and rhythm. Abdominal exam: exam deferred Rectal exam: exam deferred Extremities: no clubbing, cyanosis or edema. No adenopathy. Other: Right axilla-resolving inflammation from a sebaceous cyst approximately 1 x 1 cm not actively fluctuant LABORATORY VALUES: As Noted RADIOLOGIC STUDIES: As Noted Assessment IMPRESSION: SEBCEOUS CYST - RIGHT AXILLA PLAN: Bita will return for excision of the skin lesion at a later date. The patient is instructed not to take aspirin for 1 week prior to the procedure. Diagnoses: (L72.9) Skin cyst Return to Clinic: The patient is instructed to follow-up with me in approximately 1 month since this is resolving from the inflamed state. If it really inflames prior to that time she should return for incision and drainage. Otherwise we will plan to excise the sebaceous cyst at that time. This note is referred back to the referring provider and the primary care physician. Nelson Torrez MD documented in this encounterOhiohealth [facility] City [facility]11-20-2024 Nurse Note* Tad Biggs, RN - 01/18/2024 3:54 PM EST REVIEW OF SYSTEMS: General: The patient denies fatigue, denies weight loss, denies weight gain, denies feeling hot, and denies feelings of cold. Eyes: The patient denies glaucoma, NOTES eye injury/surgery, does not wear glasses or contacts. Ear/Nose/Throat: The patient NOTES allergies, NOTES hayfever, denies ear infections, and NOTES bloody noses. Cardiovascular: The patient denies chest pain, denies heart disease, NOTES high blood pressure,denies cardiac stent, denies prior heart attack, NOTES irregular heart beat, NOTES high cholesterol, denies poor circulation, denies heart failure, other cardiac issues, NOTES claudication, denies cold feet, denies peripheral arterial stent. Respiratory: The patient denies tuberculosis, NOTES pneumonia, NOTES frequent cough, denies pulmonary embolism, denies shortness of breath, and denies coughing up blood. Gastrointestinal: The patient denies difficulty swallowing, NOTES acid reflux, denies ulcers, denies vomiting, denies jaundice/hepatitis, NOTES gallbladder problems, denies black or tarry stools, denies hemorrhoids, NOTES bleeding from rectum, NOTES diverticulitis, denies constipation, denies diarrhea, denies loss of stool control, and denies hernias. Kidney/Bladder: The patient NOTES kidney stones, NOTES urine infections, and NOTES bloody urine. Skin: The patient NOTES a history of skin cancer, denies bleeding/changing moles, and NOTES a history of skin rash. Neurologic: The patient denies a history of epilepsy/convulsions, denies headaches, NOTES head/spinal injuries, and denies stroke/TIA. Psychiatric: The patient denies psychiatric medications, denies depression, and denies voices, denies substance abuse. Endocrine: The patient denies thyroid disorders, denies diabetes, and denies hormonal problems. Hematologic: The patient NOTES a history of bruising, NOTES bleeding, and denies anemia, denies blood clots. Infections: The patient NOTES a history of measles and mumps, NOTES rheumatic fever, and denies sexually transmitted diseases. Musculoskeletal: The patient NOTES back pain/injury, denies back problems, denies sciatica, NOTES knee/foot trouble, NOTES arthritis, or denies gout. When was patient's last Mammogram screening? 2013 Last Colonoscopy: NONE Tad Biggs RN [facility]11[facility] Nurse Note* Tad Biggs RN - 01/18/2024 3:54 PM EST REVIEW OF SYSTEMS: General: The patient denies fatigue, denies weight loss, denies weight gain, denies feeling hot, and denies feelings of cold. Eyes: The patient denies glaucoma, NOTES eye injury/surgery, does not wear glasses or contacts. Ear/Nose/Throat: The patient NOTES allergies, NOTES hayfever, denies ear infections, and NOTES bloody noses. Cardiovascular: The patient denies chest pain, denies heart disease, NOTES high blood pressure,denies cardiac stent, denies prior heart attack, NOTES irregular heart beat, NOTES high cholesterol, denies poor circulation, denies heart failure, other cardiac issues, NOTES claudication, denies cold feet, denies peripheral arterial stent. Respiratory: The patient denies tuberculosis, NOTES pneumonia, NOTES frequent cough, denies pulmonary embolism, denies shortness of breath, and denies coughing up blood. Gastrointestinal: The patient denies difficulty swallowing, NOTES acid reflux, denies ulcers, denies vomiting, denies jaundice/hepatitis, NOTES gallbladder problems, denies black or tarry stools, denies hemorrhoids, NOTES bleeding from rectum, NOTES diverticulitis, denies constipation, denies diarrhea, denies loss of stool control, and denies hernias. Kidney/Bladder: The patient NOTES kidney stones, NOTES urine infections, and NOTES bloody urine. Skin: The patient NOTES a history of skin cancer, denies bleeding/changing moles, and NOTES a history of skin rash. Neurologic: The patient denies a history of epilepsy/convulsions, denies headaches, NOTES head/spinal injuries, and denies stroke/TIA. Psychiatric: The patient denies psychiatric medications, denies depression, and denies voices, denies substance abuse. Endocrine: The patient denies thyroid disorders, denies diabetes, and denies hormonal problems. Hematologic: The patient NOTES a history of bruising, NOTES bleeding, and denies anemia, denies blood clots. Infections: The patient NOTES a history of measles and mumps, NOTES rheumatic fever, and denies sexually transmitted diseases. Musculoskeletal: The patient NOTES back pain/injury, denies back problems, denies sciatica, NOTES knee/foot trouble, NOTES arthritis, or denies gout. When was patient's last Mammogram screening? 2013 Last Colonoscopy: NONE Tad Biggs RN documented in this encounterOhiohealth [facility]11-07-2024 Instructions* Patient Instructions* Zara Galloway APRN.CNP - 01/05/2024 11:17 AM EST Make appointment with general surgery documented in this encounterOhiohealth [facility]11-07-2024 NoteHNO ID: [id number] Author: ZARA GALLOWAY APRN.CNP Service: ? Author Type: Nurse Practitioner Type: Progress Notes Filed: 01/05/2024 11:43 Note Text: 01/05/2024 Patient presents with: Cyst: Under right armpit SUBJECTIVE: This is a 78 year old that is here today for Above Complaints. Patient reports she has had a cyst to right arm pit for 20 years and at times it becomes inflamed. This AM woke up with discomfort and noted her cyst was enlarge. Denies fevers, chills, increasing redness, excessive warmth to area or drainage PAST MEDICAL HISTORY Diagnosis Date Essential hypertension History of ITP History of skin cancer Mixed hyperlipidemia CYNTHIA (obstructive sleep apnea) Stage 2 chronic kidney disease ALLERGIES Beef Containing Products, Beta-Blockers (Beta-Adrenergic Blocking Agts), Black Pepper, Cat Dander, Horse Dander, Mushroom, Penicillins, Seasonal Allergies, and Igfvzrx-Lht-Nvg Reductase Inhibitors MEDICATIONS Current Outpatient Medications Medication Sig Doxycycline Monohydrate 40 mg capsule folic acid 400 mcg tablet Folic Acid 400mg Active albuterol HFA 90 mcg/actuation HFA Inhale as instructed. lisinopril (ZESTRIL, PRINIVIL) 20 mg tablet Take 20 mg by mouth twice daily. fenofibrate nanocrystallized (TRICOR) 145 mg tablet Take 145 mg by mouth once daily. estradiol (ESTRACE) 0.01 % (0.1 mg/gram) vaginal cream famotidine (PEPCID) 20 mg tablet Take 20 mg by mouth twice daily. cholecalciferol, vitamin D3, (VITAMIN D3 ORAL) Take 400 mg by mouth. No current facility-administered medications for this visit. Medications and allergies reviewed by this provider. SOCIAL HISTORY Social History Tobacco Use Smoking status: Never Smokeless tobacco: Never Substance Use Topics Alcohol use: Not Currently Drug use: Never REVIEW OF SYSTEMS All other reviewed and negative other than HPI. OBJECTIVE: BP 150/80 Pulse 66 Resp 18 Wt 68 kg (149 lb 14.6 oz) BMI 24.95 kg/m? . Vital signs reviewed by this provider. APPEARANCE Well appearing, alert, in no acute distress, well-hydrated, well nourished. RIGHT AXILLA: approximate half dollar sized mass with mild erythema and some fluctuance. Mild TTP. No active drainage Hib Vaccine(1 of 1 - Risk 1-dose series) Never done Depression Screening Never done Anxiety Screening Never done Hepatitis C Screening Never done BP Controlled (<130/80) Never done DTaP,Tdap,Td Vaccine(1 - Tdap) Never done Bone Density Screening Never done Meningococcal B Vaccine: Consider Based On Risk(3 of 5 - Increased Risk Trumenba 3-dose series) due on 04/08/2018 Shingrix Vaccine(2 of 3) due on 08/29/2019 RSV Vaccine(1 - 1-dose 75+ series) Never done Meningococcal Conjugate Vaccine(3 - Risk 2-dose series) due on 06/14/2022 Advance Directive Discussion Never done Influenza Vaccine(1) due on 10/30/2023 Covid-19 Vaccine( - 2023- season) due on 10/30/2023 Annual PCP Team Chronic Disease Visit due on 01/02/2025 Serum Creatinine due on 01/02/2025 Hemoglobin/Hematocrit due on 01/02/2025 Diabetes Screening due on 01/02/2027 Pneumococcal Vaccine: 65+ Completed ASSESSMENT/PLAN: 1. Skin cyst - ICD9: 706.2, ICD10: L72.9 - appears to be inflamed - no red flag symptoms or exam findings - red flag symptoms discussed, verbalizes understanding - will have her see general surgery - CONSULT TO GENERAL SURGERY - CEPHALEXIN 500 MG CAPSULE- patient reports has taken before and did well with PCN allergy - follow-up if symptoms fail to improve to ER with red flag symptoms Zara PatellogTIFFANY bruce.VP CLINICAL Prescription instructions reviewed with patient as applicable. Patient advised if symptoms do not improve or if symptoms worsen sooner, to contact their primary care physician. Potential red flag symptoms discussed with the patient. Reviewed appropriate action plan to take if red flag symptoms occur. Patient agreeable to treatment plan. Medical Decision Making: Problems: Moderate: New problem with uncertain prognosis Risk: Moderate: Drug management Medical Decision Making Level: [facility] - [facility] of Present illness Narrative* Zara Galloway APRN.CNP - 01/05/2024 11:11 AM EST 01/05/2024 Patient presents with: Cyst: Under right armpit SUBJECTIVE: This is a 78 year old that is here today for Above Complaints. Patient reports she has had a cyst to right arm pit for 20 years and at times it becomes inflamed. This AM woke up with discomfort and noted her cyst was enlarge. Denies fevers, chills, increasing redness, excessive warmth to area or drainage PAST MEDICAL HISTORY Diagnosis Date Essential hypertension History of ITP History of skin cancer Mixed hyperlipidemia CYNTHIA (obstructive sleep apnea) Stage 2 chronic kidney disease ALLERGIES Beef Containing Products, Beta-Blockers (Beta-Adrenergic Blocking Agts), Black Pepper, Cat Dander, Horse Dander, Mushroom, Penicillins, Seasonal Allergies, and Gvhszuv-Zfb-Tny Reductase Inhibitors MEDICATIONS Current Outpatient Medications Medication Sig Doxycycline Monohydrate 40 mg capsule folic acid 400 mcg tablet Folic Acid 400mg Active albuterol HFA 90 mcg/actuation HFA Inhale as instructed. lisinopril (ZESTRIL, PRINIVIL) 20 mg tablet Take 20 mg by mouth twice daily. fenofibrate nanocrystallized (TRICOR) 145 mg tablet Take 145 mg by mouth once daily. estradiol (ESTRACE) 0.01 % (0.1 mg/gram) vaginal cream famotidine (PEPCID) 20 mg tablet Take 20 mg by mouth twice daily. cholecalciferol, vitamin D3, (VITAMIN D3 ORAL) Take 400 mg by mouth. No current facility-administered medications for this visit. Medications and allergies reviewed by this provider. SOCIAL HISTORY Social History Tobacco Use Smoking status: Never Smokeless tobacco: Never Substance Use Topics Alcohol use: Not Currently Drug use: Never REVIEW OF SYSTEMS All other reviewed and negative other than HPI. OBJECTIVE: BP 150/80 Pulse 66 Resp 18 Wt 68 kg (149 lb 14.6 oz) BMI 24.95 kg/m . Vital signs reviewed by this provider. APPEARANCE Well appearing, alert, in no acute distress, well-hydrated, well nourished. RIGHT AXILLA: approximate half dollar sized mass with mild erythema and some fluctuance. Mild TTP. No active drainage Hib Vaccine(1 of 1 - Risk 1-dose series) Never done Depression Screening Never done Anxiety Screening Never done Hepatitis C Screening Never done BP Controlled (<130/80) Never done DTaP,Tdap,Td Vaccine(1 - Tdap) Never done Bone Density Screening Never done Meningococcal B Vaccine: Consider Based On Risk(3 of 5 - Increased Risk Trumenba 3-dose series) dueon 04/08/2018 Shingrix Vaccine(2 of 3) due on 08/29/2019 RSV Vaccine(1 - 1-dose 75+ series) Never done Meningococcal Conjugate Vaccine(3 - Risk 2-dose series) due on 06/14/2022 Advance Directive Discussion Never done Influenza Vaccine(1) due on 10/30/2023 Covid-19 Vaccine( season) due on 10/30/2023 Annual PCP Team Chronic Disease Visit due on 01/02/2025 Serum Creatinine due on 01/02/2025 Hemoglobin/Hematocrit due on 01/02/2025 Diabetes Screening due on 01/02/2027 Pneumococcal Vaccine: 65+ Completed ASSESSMENT/PLAN: 1. Skin cyst - ICD9: 706.2, ICD10: L72.9 - appears to be inflamed - no red flag symptoms or exam findings - red flag symptoms discussed, verbalizes understanding - will have her see general surgery - CONSULT TO GENERAL SURGERY - CEPHALEXIN 500 MG CAPSULE- patient reports has taken before and did well with PCN allergy - follow-up if symptoms fail to improve to ER with red flag symptoms Zara Galloway APRN.VP CLINICAL Prescription instructions reviewed with patient as applicable. Patient advised if symptoms do not improve or if symptoms worsen sooner, to contact their primary care physician. Potential red flag symptoms discussed with the patient. Reviewed appropriate action plan to take if red flag symptoms occur. Patient agreeable to treatment plan. Medical Decision Making: Problems: Moderate: New problem with uncertain prognosis Risk: Moderate: Drug management Medical Decision Making Level: 4 - Moderate [facility] Telephone encounter Note * Telephone Encounter - Dolores Mckee LPN - 01/05/2024 9:50 AM EST Spoke with pt and information listed below given. Pt verbalizes understanding. Dolores Mckee LPN [facility]11-07-[facility] Miscellaneous Notes* Telephone Encounter - Dolores Mckee LPN - 01/05/2024 9:50 AM EST Spoke with pt and information listed below given. Pt verbalizes understanding. Dolores Mckee LPN * Telephone Encounter - Dolores Mckee LPN - 01/05/2024 8:32 AM EST Left a message for pt to call the office and ask to speak to a nurse. Dolores Mckee LPN * Telephone Encounter - Dolores Mckee LPN - 01/05/2024 8:32 AM EST ----- Message from Zara Galloway APRN.VP CLINICAL sent at 01/05/2024 6:56 AM EST ----- A1c in is prediabetic range. Work on lower carbohydrate diet and aim for at least 150 minutes of exercise per week. Zara Galloway APRN.CNP documented in this encounter[facility] Telephone encounter Note * Telephone Encounter - Dolores Mckee LPN - 01/05/2024 8:32 AM EST Left a message for pt to call the office and ask to speak to a nurse. Dolores Mckee LPN [facility]11-07-[facility] Telephone encounter Note* Telephone Encounter - Dolores Mckee LPN - 01/05/2024 8:32 AM EST ----- Message from Zara Galloway APRN.CNP sent at 01/05/2024 6:56 AM EST ----- A1c in is prediabetic range. Work on lower carbohydrate diet and aim for at least 150 minutes of exercise per week. Zara Galloway APRN.CNP [facility]11-06-[facility] Telephone encounter Note* Telephone Encounter - Zara Galloway APRN.CNP - 01/04/2024 9:41 AM EST Reviewed. Zara Galloway APRN.VP CLINICAL [facility]11-06-[facility] Miscellaneous Notes* Telephone Encounter - Zara Galloway APRN.CNP - 01/04/2024 9:41 AM EST Reviewed. Zara Galloway APRN.VP CLINICAL * Telephone Encounter - Patricia Kaye LPN - 01/04/2024 9:31 AM EST Phoned patient and updated her with results. Advised her the lab will be adding an A1C onto her blood work and we will update her with those results once available. She voiced understanding and reported she will cut back on NSAIDs as she had been using them since she fractured her knee. Patricia Kaye LPN * Telephone Encounter - Zara Galloway APRN.IVORY - 01/04/2024 7:58 AM EST No acute findings in CT. Blood sugar was elevate, however if she was not fasting likely the reason.Will place order for A1c- please see if lab can add this on otherwise she will need to come back and complete this. Kidney function is decreased, however I have nothing to compare this to- recommend low salt diet, staying well hydrated with water and avoid NSAID products. The rest of her blood workwas normal. Zara Galloway APRN.IVORY documented in this encounter[facility] Telephone encounter Note * Telephone Encounter - Patricia Kaye LPN - 01/04/2024 9:31 AM EST Phoned patient and updated her with results. Advised her the lab will be adding an A1C onto her blood work and we will update her with those results once available. She voiced understanding and reported she will cut back on NSAIDs as she had been using them since she fractured her knee. Patricia Kaye LPN [facility]11-06-[facility] Telephone encounter Note* Telephone Encounter - Zara Galloway APRN.IVORY - 01/04/2024 7:58 AM EST No acute findings in CT. Blood sugar was elevate, however if she was not fasting likely the reason.Will place order for A1c- please see if lab can add this on otherwise she will need to come back and complete this. Kidney function is decreased, however I have nothing to compare this to- recommend low salt diet, staying well hydrated with water and avoid NSAID products. The rest of her blood workwas normal. Zara Galloway APRN.IVORY [facility]11[facility] History of Present illness Narrative* Guicho Wei, RT(R) - 01/03/2024 3:00 PM EST Radiology Service Progress Note DATE OF SERVICE: January 03, 2024 TIME: 3:46 PM PATIENT IDENTITY VERIFICATION COMPLETED USING TWO (2) STANDARD IDENTIFIERS: Name and Date of confirmed by patient verbally. FALL SCREENING: Has the patient had 2 falls in the last year or 1 fall with injury or currently using an Ambulatory Assistive Device (Walker, Cane, Wheelchair, Crutches, etc.)? No PATIENT GENDER DATA: Female. status: : No status: NO. PATIENT RELEVANT IMPLANT DATA REVIEWED: Yes PATIENT PRESENTS WITH AN IMPLANTABLE OR ATTACHED RELIGIOUS RITUAL SLAUGHTERER: No ALLERGIES: Reviewed and unchanged CONTRAST ALLERGY: NO. EXAM: CT -CONTRAST INDUCED NEPHROPATHY RISK FACTORS: Patient age > 60 years CREATININE: Creatinine Date Value Ref Range Status 01/03/2024 1.21 (H) 0.58 - 0.96 mg/dL Final Estimated Glomerular Filtration Rate Date Value Ref Range Status 01/03/2024 46 (L) >=60 mL/min/1.73m Final Comment: Estimated Glomerular Filtration Rate (eGFR) is calculated using the 2020 CKD-EPI creatinine equation. This equation utilizes serum creatinine, sex, and age as parameters. The creatinine assay has traceable calibration to isotope dilution- mass spectrometry. Refer to KDIGO guidelines for clinical interpretation. In patients with unstable renal function, e.g. those with acute kidney injury, the eGFRmay not accurately reflect actual GFR. P.O.C.T. RESULTS: N/A January 03, 2024 TREATMENT: N/A PERIPHERAL IV DATA: Ambulatory: A peripheral IV was started in the Left antecubital site with a Angio cath: 22 gauge. RADIOLOGY DEPARTMENT: CT; Exam(s) Completed: Abdomen/Pelvis SIGNATURE: RT Maciej([place]) PATIENT NAME: Bita Thompson DATE: January 03, 2024 TIME: 3:46 PM documented in this encounterOhio[facility]24 NoteHNO ID: [id number] Author: GUICHO WEI RT(R) Service: ? Author Type: Manager Sas Type: Progress Notes Filed: 01/03/2024 15:47 Note Text: Radiology Service Progress Note DATE OF SERVICE: January 03, 2024 TIME: 3:46 PM PATIENT IDENTITY VERIFICATION COMPLETED USING TWO (2) STANDARD IDENTIFIERS: Name and Date of confirmed by patient verbally. FALL SCREENING: Has the patient had 2 falls in the last year or 1 fall with injury or currently using an Ambulatory Assistive Device (Walker, Cane, Wheelchair, Crutches, etc.)? No PATIENT GENDER DATA: Female. status: : No status: NO. PATIENT RELEVANT IMPLANT DATA REVIEWED: Yes PATIENT PRESENTS WITH AN IMPLANTABLE OR ATTACHED RELIGIOUS RITUAL SLAUGHTERER: No ALLERGIES: Reviewed and unchanged CONTRAST ALLERGY: NO. EXAM: CT -CONTRAST INDUCED NEPHROPATHY RISK FACTORS: Patient age > 60 years CREATININE: Creatinine Date Value Ref Range Status 01/03/2024 1.21 (H) 0.58 - 0.96 mg/dL Final Estimated Glomerular Filtration Rate Date Value Ref Range Status 01/03/2024 46 (L) >=60 mL/min/1.73m? Final Comment: Estimated Glomerular Filtration Rate (eGFR) is calculated using the 2020 CKD-EPI creatinine equation. This equation utilizes serum creatinine, sex, and age as parameters. The creatinine assay has traceable calibration to isotope dilution-mass spectrometry. Refer to KDIGO guidelines for clinical interpretation. In patients with unstable renal function, e.g. those with acute kidney injury, the eGFR may not accurately reflect actual GFR. P.O.C.T. RESULTS: N/A January 03, 2024 TREATMENT: N/A PERIPHERAL IV DATA: Ambulatory: A peripheral IV was started in the Left antecubital site with a Angio cath: 22 gauge. RADIOLOGY DEPARTMENT: CT; Exam(s) Completed: Abdomen/Pelvis SIGNATURE: RT Maciej(R) PATIENT NAME: Bita Thompson DATE: January 03, 2024 TIME: 3:46 [facility]11-05-2024 NoteHNO ID: [id number] Author: ZARA GALLOWAY APRN.VP CLINICAL Service: ? Author Type: Nurse Practitioner Type: Progress Notes Filed: 01/03/2024 10:32 Note Text: 01/03/2024 Patient presents with: Abdominal Pain: Constipation, patient believes pain could also be from stress SUBJECTIVE: This is a 78 year old that is here today for Above Complaints. Patient is new patient to me. ONSET: 2-3 weeks LOCATION: LLQ and LUQ DURATION: intermittent CHARACTERISTICS: sometimes sharp, feels like a bag of air AGGRAVATING FEATURES: eating ALLEVIATING FEATURES: tylenol with mild relief RADIATION: none Admits to constipation and a one time episode of diarrhea. Last BM was today Denies weight loss, fevers, chills, nausea, vomiting, melana, or hematochezia Reports hx of pancreatitis and gallstones for which she had a cholecystectomy. Otherwise not other abdominal surgeries. She reports she has had diverticulitis in the past PAST MEDICAL HISTORY Diagnosis Date Essential hypertension History of ITP History of skin cancer Mixed hyperlipidemia CYNTHIA (obstructive sleep apnea) Stage 2 chronic kidney disease ALLERGIES Beef Containing Products, Beta-Blockers (Beta-Adrenergic Blocking Agts), Black Pepper, Cat Dander, Horse Dander, Mushroom, Penicillins, Seasonal Allergies, and Jmvclwc-Mfs-Kpc Reductase Inhibitors MEDICATIONS Current Outpatient Medications Medication Sig Doxycycline Monohydrate 40 mg capsule folic acid 400 mcg tablet Folic Acid 400mg Active albuterol HFA 90 mcg/actuation HFA Inhale as instructed. lisinopril (ZESTRIL, PRINIVIL) 20 mg tablet Take 20 mg by mouth twice daily. fenofibrate nanocrystallized (TRICOR) 145 mg tablet Take 145 mg by mouth once daily. estradiol (ESTRACE) 0.01 % (0.1 mg/gram) vaginal cream famotidine (PEPCID) 20 mg tablet Take 20 mg by mouth twice daily. cholecalciferol, vitamin D3, (VITAMIN D3 ORAL) Take 400 mg by mouth. No current facility-administered medications for this visit. Medications and allergies reviewed by this provider. SOCIAL HISTORY Social History Tobacco Use Smoking status: Never Smokeless tobacco: Never Substance Use Topics Alcohol use: Not Currently Drug use: Never REVIEW OF SYSTEMS All other reviewed and negative other than HPI. OBJECTIVE: Pulse 71 Temp 37 ?C (98.6 ?F) Resp 18 Wt 69.4 kg (153 lb) SpO2 95% BMI 25.46 kg/m? . Vital signs reviewed by this provider. APPEARANCE Well appearing, alert, in no acute distress, well-hydrated, well nourished. EYES PERRLA, conjunctiva and sclera normal. HEART RRR with normal S1 and S2, no murmurs, no gallops, no JVD appreciated LUNG clear to auscultation ABDOMEN bowel sounds hyperactive in all 4 quads. Softly distended. TTP LLQ without rebound tenderness. No guarding SKIN Skin color, texture, turgor normal, no suspicious rashes or lesions to exposed skin Hib Vaccine(1 of 1 - Risk 1-dose series) Never done Annual PCP Team Chronic Disease Visit Never done Depression Screening Never done Anxiety Screening Never done Hepatitis C Screening Never done Serum Creatinine Never done BP Controlled (<130/80) Never done DTaP,Tdap,Td Vaccine(1 - Tdap) Never done Diabetes Screening Never done Bone Density Screening Never done Meningococcal B Vaccine: Consider Based On Risk(3 of 5 - Increased Risk Trumenba 3-dose series) due on 04/08/2018 Shingrix Vaccine(2 of 3) due on 08/29/2019 RSV Vaccine(1 - 1-dose 75+ series) Never done Meningococcal Conjugate Vaccine(3 - Risk 2-dose series) due on 06/14/2022 Advance Directive Discussion Never done Influenza Vaccine(1) due on 10/30/2023 Covid-19 Vaccine( season) due on 10/30/2023 Pneumococcal Vaccine: 65+ Completed ASSESSMENT/PLAN: 1. Left lower quadrant abdominal pain - ICD9: 789.04, ICD10: R10.32 (primary diagnosis) - consider diverticulitis vs constipation vs unknown - no red flag symptoms or exam findings - red flag symptoms discussed, verbalize understanding - CT ABD/PEL W IVCON - IV CONTRAST (RADIOLOGY PROCEDURE) - ENTERIC CONTRAST (RADIOLOGY PROCEDURE) - COMPLETE BLOOD COUNT AND DIFFERENTIAL - COMPREHENSIVE METABOLIC PANEL - SEDIMENTATION RATE, WESTERGREN - C-REACTIVE PROTEIN - bland diet at this time - follow-up pending testing to ER with red flag symptoms 2. LUQ pain - ICD9: 789.02, ICD10: R10.12 - consider pancreatitis vs constipation - LIPASE - SEDIMENTATION RATE, WESTERGREN - C-REACTIVE PROTEIN - plan as in #1 as well Zara Galloway APRN.VP CLINICAL Prescription instructions reviewed with patient as applicable. Patient advised if symptoms do not improve or if symptoms worsen sooner, to contact their primary care physician. Potential red flag symptoms discussed with the patient. Reviewed appropriate action plan to take if red flag symptoms occur. Patient agreeable to treatment plan. Medical Decision Making: Problems: Moderate: New problem with uncertain prognosis Data: Un (more content not included)...[facility] History of Present illness Narrative* Zara Galloway APRN.IVORY - 01/03/2024 9:42 AM EST 01/03/2024 Patient presents with: Abdominal Pain: Constipation, patient believes pain could also be from stress SUBJECTIVE: This is a 78 year old that is here today for Above Complaints. Patient is new patient to me. ONSET: 2-3 weeks LOCATION: LLQ and LUQ DURATION: intermittent CHARACTERISTICS: sometimes sharp, feels like a bag of air AGGRAVATING FEATURES: eating ALLEVIATING FEATURES: tylenol with mild relief RADIATION: none Admits to constipation and a one time episode of diarrhea. Last BM was today Denies weight loss, fevers, chills, nausea, vomiting, melana, or hematochezia Reports hx of pancreatitis and gallstones for which she had a cholecystectomy. Otherwise not other abdominal surgeries. She reports she has had diverticulitis in the past PAST MEDICAL HISTORY Diagnosis Date Essential hypertension History of ITP History of skin cancer Mixed hyperlipidemia CYNTHIA (obstructive sleep apnea) Stage 2 chronic kidney disease ALLERGIES Beef Containing Products, Beta-Blockers (Beta-Adrenergic Blocking Agts), Black Pepper, Cat Dander, Horse Dander, Mushroom, Penicillins, Seasonal Allergies, and Fznsntw-Kbi-Bnq Reductase Inhibitors MEDICATIONS Current Outpatient Medications Medication Sig Doxycycline Monohydrate 40 mg capsule folic acid 400 mcg tablet Folic Acid 400mg Active albuterol HFA 90 mcg/actuation HFA Inhale as instructed. lisinopril (ZESTRIL, PRINIVIL) 20 mg tablet Take 20 mg by mouth twice daily. fenofibrate nanocrystallized (TRICOR) 145 mg tablet Take 145 mg by mouth once daily. estradiol (ESTRACE) 0.01 % (0.1 mg/gram) vaginal cream famotidine (PEPCID) 20 mg tablet Take 20 mg by mouth twice daily. cholecalciferol, vitamin D3, (VITAMIN D3 ORAL) Take 400 mg by mouth. No current facility-administered medications for this visit. Medications and allergies reviewed by this provider. SOCIAL HISTORY Social History Tobacco Use Smoking status: Never Smokeless tobacco: Never Substance Use Topics Alcohol use: Not Currently Drug use: Never REVIEW OF SYSTEMS All other reviewed and negative other than HPI. OBJECTIVE: Pulse 71 Temp 37 C (98.6 F) Resp 18 Wt 69.4 kg (153 lb) SpO2 95% BMI 25.46 kg/m . Vital signs reviewed by this provider. APPEARANCE Well appearing, alert, in no acute distress, well-hydrated, well nourished. EYES PERRLA, conjunctiva and sclera normal. HEART RRR with normal S1 and S2, no murmurs, no gallops, no JVD appreciated LUNG clear to auscultation ABDOMEN bowel sounds hyperactive in all 4 quads. Softly distended. TTP LLQ without rebound tenderness. No guarding SKIN Skin color, texture, turgor normal, no suspicious rashes or lesions to exposed skin Hib Vaccine(1 of 1 - Risk 1-dose series) Never done Annual PCP Team Chronic Disease Visit Never done Depression Screening Never done Anxiety Screening Never done Hepatitis C Screening Never done Serum Creatinine Never done BP Controlled (<130/80) Never done DTaP,Tdap,Td Vaccine(1 - Tdap) Never done Diabetes Screening Never done Bone Density Screening Never done Meningococcal B Vaccine: Consider Based On Risk(3 of 5 - Increased Risk Trumenba 3-dose series) dueon 04/08/2018 Shingrix Vaccine(2 of 3) due on 08/29/2019 RSV Vaccine(1 - 1-dose 75+ series) Never done Meningococcal Conjugate Vaccine(3 - Risk 2-dose series) due on 06/14/2022 Advance Directive Discussion Never done Influenza Vaccine(1) due on 10/30/2023 Covid-19 Vaccine( - 2023- season) due on 10/30/2023 Pneumococcal Vaccine: 65+ Completed ASSESSMENT/PLAN: 1. Left lower quadrant abdominal pain - ICD9: 789.04, ICD10: R10.32 (primary diagnosis) - consider diverticulitis vs constipation vs unknown - no red flag symptoms or exam findings - red flag symptoms discussed, verbalize understanding - CT ABD/PEL W IVCON - IV CONTRAST (RADIOLOGY PROCEDURE) - ENTERIC CONTRAST (RADIOLOGY PROCEDURE) - COMPLETE BLOOD COUNT AND DIFFERENTIAL - COMPREHENSIVE METABOLIC PANEL - SEDIMENTATION RATE, WESTERGREN - C-REACTIVE PROTEIN - bland diet at this time - follow-up pending testing to ER with red flag symptoms 2. LUQ pain - ICD9: 789.02, ICD10: R10.12 - consider pancreatitis vs constipation - LIPASE - SEDIMENTATION RATE, WESTERGREN - C-REACTIVE PROTEIN - plan as in #1 as well Zara Galloway APRN.VP CLINICAL Prescription instructions reviewed with patient as applicable. Patient advised if symptoms do not improve or if symptoms worsen sooner, to contact their primary care physician. Potential red flag symptoms discussed with the patient. Reviewed appropriate action plan to take if red flag symptoms occur. Patient agreeable to treatment plan. Medical Decision Making: Problems: Moderate: New problem with uncertain prognosis Data: Unique test(s) ordered: 3+ Risk: Moderate: Moderate risk from testing/treatment Medical Decision Making Level: 4 - Moderate documented in this [facility] Discharge summary Author Arnoldo Monae [facility] March 31, 2023 2:22pm Note Date/Time March 31, 2023 1 2:32pm [facility] Medical Records Department [address] [place] [address] Emergency Department Summary 03/31/23 MR#: [id number] Acct: [id number] Name: BITA THOMPSON Rep #:[id number] 1945 77 From: Arnoldo Monae DO PCP: Dr. Jaclyn Siddiqui MD Status:REG ER Location: ED HPI History of Present Illness Chief Complaint: Fall Narrative Narrative: 77-year-old female presenting for evaluation. She states she got her left foot caught on a rug and spun around tripped falling backwards. She states she basically was able to catch most of resolved but sat on the floor fell and hit her head. No LOC. Patient felt initially dizzy after hitting her head but thisis resolved. No visual complaints. No nausea, vomiting. She has been up and ambulate since then. She has a mild headache. She states she did hit her left elbow as she was going down but does not think she hurt severely. She notes there is no bruising and she is able to range the left shoulder and elbow. 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 GERD (gastroesophageal reflux disease) History of diverticulitis History of kidney stones Hyperlipemia Hypertension Idiopathic thrombocytopenic purpura (ITP) Impaired fasting glucose Nocturnal hypoxia CYNTHIA (obstructive sleep apnea) Osteopenia Pancreatic divisum Pneumonia Pre-diabetes Rectal abnormality Renal cyst Rosacea SOB (shortness of breath) Vitamin D deficiency Home Medications famotidine 20 mg tablet (Pepcid) 20 mg PO DAILY 04/09/21 [History Last Taken Unknown] fenofibrate nanocrystallized 145 mg tablet (Tricor) 145 mg PO DAILY 04/09/21 [History Last Taken Unknown] folic acid 400 mcg tablet 0.4 mg PO DAILY 04/09/21 [History Last Taken Unknown] lisinopril 20 mg tablet 20 mg PO BID 04/09/21 [History Last Taken Unknown] prochlorperazine maleate 5 mg tablet 5 - 10 mg PO Q6H PRN Stomach Upset 04/09/21[History Last Taken Unknown] albuterol sulfate 90 mcg/actuation aerosol inhaler 2 puff inhalation Q4H PRN shortness of breath or wheezing 07/16/21 [History Last Taken Unknown] potassium chloride 10 mEq tablet,extended release 10 meq PO QODAY 01/07/22 [History Last Taken Unknown] azithromycin 250 mg tablet 250 mg PO QDAY #12 tabs 01/26/23 [Rx Last Taken Unknown] buspirone 5 mg tablet 5 mg PO BID #60 tabs 02/10/23 [Rx Last Taken Unknown] propranolol 10 mg tablet 20 mg (2 x 10 mg) PO BID #120 tabs 02/10/23 [Rx Last Taken Unknown] cholecalciferol (vitamin D3) 25 mcg (1,000 unit) capsule 25 mcg PO DAILY low bone density 3 months #90 caps 03/17/23 [Rx Last Taken Unknown] Allergy/AdvReac Type Severity Reaction Status Date / Time primidone Allergy Severe Anaphylaxis Verified 03/17/23 13:21 montelukast Allergy Intermediate Other Verified 03/17/23 13:21 alcohol Allergy Unknown Rash Verified 03/17/23 13:21 [From Mastisol Adhesive] beef derived (bovine) Allergy Unknown Unknown Verified 03/17/23 13:21 gum mastic Allergy Unknown Rash Verified 03/17/23 13:21 [From Mastisol Adhesive] methyl salicylate Allergy Unknown Rash Verified 03/17/23 13:21 [From Mastisol Adhesive] mold Allergy Unknown Difficulty Verified 03/17/23 13:21 Breathing/Wheezing penicillin V Allergy Unknown Rash Verified 03/17/23 13:21 storax Allergy Unknown Rash Verified 03/17/23 13:21 [From Mastisol Adhesive] [id number] Reductase Allergy NEEDS Verified 03/17/23 13:21 Inhibitor FOLLOW-UP black pepper AdvReac Unknown UNKNOWN Verified 03/17/23 13:21 Family History Father Cancer colon Diabetes CVA (cerebral vascular accident) Ulcer Grandfather Cancer stomach Mother Hypertension CVA (cerebral vascular accident) Thyroid disorder Brother Hypertension Hyperlipidemia Sister Hypertension Hyperlipidemia Surgical History H/O elbow surgery History of cataract surgery History of section History of cholecystectomy History of D&C History of hip replacement History of hysterectomy History of left hip replacement History of splenectomy S/P nasal surgery Social History household members: spouse current occupational status: retired current occupation: product sales engineer Smoking Status: Never smoker Electronic Cigarette Use: not used second hand exposure: No alcohol intake: never substance use type: does not use what type of physical activity do you participate in: none tiara/yazidi: Episcopal seatbelt use: always do you feel safe at home: Yes ROS ROS ED Constitutional Constitutional ED: Denies chills, fever(s) or sweats Eyes Eyes: Denies blurry vision or change in vision ENT ENT ED: Denies ear pain or sore throat Cardiovascular Cardiovascular: Denies chest pain, palpitations or racing heartbeat Respiratory/Chest Respiratory/Chest: Denies cough, dyspnea or sputum Gastrointestinal Gastrointestinal: Denies abdominal pain, constipation, diarrhea, nausea or vomiting Genitourinary Genitourinary ED: Denies dysuria, hematuria or urinary frequency Musculoskeletal Musculoskeletal: Denies arthralgias, myalgias or neck pain Integumentary Denies abscess, Abrasions or rash Neurologic Neurologic: Reports headache(s); Denies paresthesias or weakness Psychiatric Psychiatric: Denies anxiety, depression, suicidal ideation or suicidal thoughts Endocrine Endocrinology: Denies polydipsia or polyuria EXAM Physical Exam Const Vital Signs: 03/31/23 11:59 03/31/23 11:59 03/31/23 11:59 Temperature 98 F Temperature Source Oral Pulse Rate 72 74 Respiratory Rate 16 16 Respiratory Effort Normal Blood Pressure 165/70 H 175/74 H Blood Pressure Mean 101 107 Pulse Ox 97 98 Oxygen Delivery Method Room Air Room Air Room Air Positive well nourished General Appearance ED: NAD HEENT atraumatic; Negative for trauma Eyes PERRL and EOMs intact bilaterally Chest Wall inspection of chest normal Resp normal respiratory effort Cardio regular rhythm GI normal to inspection, nondistended, normoactive bowel sounds Extremity Extremity Narrative: Left elbow nontender to palpation. Normal range of motion. Left and extension maintained. No bruising or edema. Neuro oriented x3 and CN's II-XII intact bilaterally Sensorium / Orientation: alert Motor Exam: strength 5/5 throughout Psych mental status grossly normal Skin no wounds MDM MDM MDM Narrative Medical decision making narrative: Patient presenting with neck pain and headache after mechanical fall. Differential includes intracranial hemorrhage, skull fracture, concussion, cervical strain, C-spine fracture. CT brain and cervical spine will be obtained. Patient declines anything stronger than Tylenol at this time. No nausea currently. CT brain and cervical spine were negative. Patient counseledon findings. This point I feel she stable for discharge. Return precautions discussed. Impression: 1. Mechanical fall 2. Closed head injury 3. Cervical strain Lab Data Attestation: I reviewed the patient's lab results. Radiography Diagnostic Testing: Clinical Impression(s) from Imaging Studies Brain CT 03/31/23 12:30 IMPRESSION: Chronic involutional changes of the brain. Mucosal thickening along the posterior aspect of the left sphenoid sinus. Electronically Signed: Hemant Meneses MD at 13:02 EST , Cervical Spine CT 03/31/23 12:30 IMPRESSION: Multilevel degenerative changes, as described above. Electronically Signed: Hemant Meneses MD at 13:08 EST , Discharge Plan Triage Chief Complaint: Fall ED Provider: Arnoldo Monae Dx/Rx/DC Orders Instructions: ED Head Injury (Adult), ED Neck Sprain or Strain, ED Fall Prevention Prescriptions: No Action prochlorperazine maleate 5 mg tablet 5 - 10 mg PO Q6H PRN (Reason: Stomach Upset) lisinopril 20 mg tablet 20 mg PO BID fenofibrate nanocrystallized [Tricor] 145 mg tablet 145 mg PO DAILY famotidine [Pepcid] 20 mg tablet 20 mg PO DAILY folic acid 400 mcg tablet 0.4 mg PO DAILY albuterol sulfate 90 mcg/actuation HFA aerosol inhaler 2 puff inhalation Q4H PRN (Reason: shortness of breath or wheezing) potassium chloride 10 mEq tablet extended release 10 meq PO QODAY buspirone 5 mg tablet 5 mg PO BID Qty: 60 6RF propranolol 10 mg tablet 20 mg PO BID Qty: 120 6RF Rx Instructions: Take 2 tablets PO BID azithromycin 250 mg tablet 250 mg PO QDAY Qty: 12 0RF Rx Instructions: 2 tablets today, then 1 tablet daily on days 2 through 11 cholecalciferol (vitamin D3) 25 mcg (1,000 unit) capsule 25 mcg PO DAILY MDD 1 90 Days Qty: 90 0RF Primary Care Provider: Jaclyn Siddiqui Referrals: Jaclyn Siddiqui MD [Primary Care Provider] - Disposition Disposition: Home, Self Care What to do if you have Problems For any increased pain, shortness of breath, bleeding, nausea or vomiting, chestpain, or any unexpected problems, contact your Primary Care Provider. Call [facility] ([phone]) or report to the closest Emergency Room. Call 911 if necessary. 03/31/231421 <Electronically signed by Arnoldo Monae DO> Cosigner Signature (if applicable): CC: Dr. Jaclyn Siddiqui MD ~ Signed [facility] Work Phone: [phone] 441-484912-24-2022 History of Present illness Narrative* Alexandria Sharma APRN.IVORY - 02/20/2022 11:45 AM EST Triage Note: Patient present to express care with left sided chest pain and heaviness since this morning. She denies any cough or chest congestion. Due to nature of patient's complaint and lack of investigative tools available at [facility], recommend patient be seen at nearest ED declines squad, with her will go to ED. Alexandria Sharma APRN.IVORY [facility] NoteORIGINAL Procedure: XR HIP LEFT W/PELVIS 4 VIEWS Clinical: see h and p COMPARISON: 05/29/2020 Technique: 3 views of the LEFT hip provided. Findings: The patient is status post LEFT hip replacement. There is appropriate position of the prosthesis. There are postsurgical changes in the soft tissues. No acute fracture is demonstrated. Posterior fusion L4-S1 with bilateral transpedicular screws and vertical stabilization rods. Interbody fusion noted at L4-L5. Impression: Postsurgical changes of the left hip status post hip replacement. Interpreted By: Flip Ignacio MD Preliminary Report By: Flip Ignacio MD Electronically Signed By: Flip Ignacio MD Dictated Date: 05/30/2020 1:54:17 PM Prelim Date: 05/30/2020 1:54:17 PM Sign Date: 05/30/2020 1:56:29 PM Ordering Provider:[facility] ([place])Evaluation + Plan note No data available for this section [facility] Evaluation note* Diagnosis Onset Date Resolution Status Abnormality of gait and mobility chronic Essential tremor chronic Myalgia of muscle of neck ch ronic Neck pain chronic Low back pain resolved [facility] Work Phone: Evaluation note* Diagnosis Onset Date Resolution Status Abnormality of gait and mobility chronic Essential tremor chronic Myalgia of muscle of neck ch ronic Neck pain chronic Low back pain resolved Myalgia of muscle of neck ch ronic Neck pain chronic Acute kidney injury acute UTI (urinary tract infection) acute [facility] Work Phone: Evaluation note* Diagnosis Onset Date Resolution Status Abnormality of gait and mobility chronic Essential tremor chronic Myalgia of muscle of neck ch ronic Neck pain chronic Low back pain resolved Myalgia of muscle of neck ch ronic Neck pain chronic Acute kidney injury resolved UTI (urinary tract infection) resolved [facility] Work Phone: Evaluation note* Diagnosis Onset Date Resolution Status Abnormality of gait and mobility chronic Essential tremor chronic Myalgia of muscle of neck ch ronic Neck pain chronic Low back pain resolved Myalgia of muscle of neck ch ronic Neck pain chronic Acute kidney injury resolved UTI (urinary tract infection) resolved Abnormality of gait and mobility chronic Essential tremor chronic Neck pain chronic [facility] Work Phone: Evaluation note* Diagnosis Other chest pain- Primary [facility] Diagnosis Onset Date Resolution Status Dorsalgia chronic Myalgia chronic Fatigue acute Essential tremor chronic Neck pain chronic [facility] Work Phone: Evaluation note* Diagnosis Onset Date Resolution Status Fatigue chronic Essential tremor chronic Fatigue chronic Myalgia of muscle of neck ch ronic Neck pain chronic Fatigue chronic Fatigue chronic [facility] Work Phone: Evaluation note* Diagnosis Onset Date Resolution Status Fatigue chronic Anxiety chronic Essential tremor chronic Fatigue chronic Anxiety chronic Essential tremor chronic CYNTIHA (obstructive sleep apnea) noneactive Establishing care with new doctor, encounter for noneactive CKD (chronic kidney disease), stage III noneactive Mild intermittent asthma in adult without complication noneactive Essential hypertension nonea ctive Fatigue chronic Anxiety chronic Essential tremor chronic Right knee pain acute Fatigue chronic Right knee pain acute [facility] Work Phone: Evaluation note* Diagnosis Onset Date Resolution Status Anxiety chronic Essential tremor chronic Fatigue chronic Anxiety chronic Essential tremor chronic CYNTHIA (obstructive sleep apnea) noneactive Establishing care with new doctor, encounter for noneactive CKD (chronic kidney disease), stage III noneactive Mild intermittent asthma in adult without complication noneactive Essential hypertension nonea ctive Fatigue chronic Anxiety chronic Essential tremor chronic Right knee pain acute Fatigue chronic 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 Right knee pain acute [facility] Work Phone: Evaluation note* Diagnosis Onset Date Resolution Status Fatigue chronic Anxiety chronic Essential tremor chronic CYNTHIA (obstructive sleep apnea) noneactive Establishing care with new doctor, encounter for noneactive CKD (chronic kidney disease), stage III noneactive Mild intermittent asthma in adult without complication noneactive Essential hypertension nonea ctive Fatigue chronic Anxiety chronic Essential tremor chronic Right knee pain acute Fatigue chronic 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 Right knee pain acute Fatigue chronic Anxiety chronic Essential tremor chronic CYNTHIA (obstructive sleep apnea) noneactive Double vision noneactive CKD (chronic kidney disease), stage III noneactive Mild intermittent asthma in adult without complication noneactive Essential hypertension nonea [facility] Work Phone: Evaluation note* Diagnosis Left lower quadrant abdominal pain- Primary LUQ pain Abdominal pain, left upper quadrant Left lower quadrant abdominal pain [facility] Diagnosis Left lower quadrant abdominal pain [facility]* Diagnosis Elevated blood sugar- Primary Other abnormal glucose [facility]* Diagnosis Skin cyst- Primary Sebaceous cyst [facility]* Diagnosis Skin cyst Sebaceous cyst [facility]* Diagnosis Skin cyst- Primary Sebaceous cyst Skin lesion of left arm Unspecified disorder of skin and subcutaneous tissue Basal cell carcinoma (BCC) of left upper arm [facility]* Diagnosis Mixed hyperlipidemia- Primary [facility] Outlet dysfunction constipation- Primary Encounter for screening for malignant neoplasm of colon Special screening for malignant neoplasms, colon [facility]* Diagnosis Colon cancer screening- Primary Special screening for malignant neoplasms, colon [facility]* Diagnosis Basal cell carcinoma (BCC) of left upper arm- Primary [facility]* Diagnosis Encounter to establish care- Primary Other reasons for seeking consultation Mixed hyperlipidemia Hypertension, essential Unspecified essential hypertension CYNTHIA (obstructive sleep apnea) Obstructive sleep apnea (adult) (pediatric) H/O splenectomy Other acquired absence of organ Essential tremor Essential and other specified forms of tremor Stage 3 chronic kidney disease, unspecified whether stage 3a or 3b CKD (HCC) [facility]* Diagnosis Basal cell carcinoma (BCC) of left upper arm- Primary [facility]* Diagnosis Colon cancer screening- Primary Special screening for malignant neoplasms, colon [facility]* Diagnosis Basal cell carcinoma (BCC) of left upper arm- Primary Skin lesion of left arm Unspecified disorder of skin and subcutaneous tissue [facility]* Diagnosis Mixed hyperlipidemia [facility]* Diagnosis Mixed hyperlipidemia documented in this encounter [facility] Discharge instructionsAmbulatory Orders* Endocrinology Location: [facility] Work Phone: Instructions* Name Dates Details Patient Instructions Indication:Nonsmoker Start:15-Jul-2020 Instruction Type:Provider Instructions for Treatment How to Access Health Informa tion Online using Patient Portal and [employer] Apps Indication:Nonsmoker Start:15-Jul-2020 Instruction Type:Patient Education [facility]; [facility] Work Phone: [id number]* Name Dates Details Patient Instructions Indication:Nonsmoker Start:15-Jul-2020 Instruction Type:Provider Instructions for Treatment How to Access Health Informa tion Online using Patient Portal and [employer] Apps Indication:Nonsmoker Start:15-Jul-2020 Instruction Type:Patient Education [facility]; [facility] Work Phone: Insjvoggions* Name Dates Details Patient Instructions Indication:Nonsmoker Start:15-Jul-2020 Instruction Type:Provider Instructions for Treatment How to Access Health Informa tion Online using Patient Portal and [employer] Apps Indication:Nonsmoker Start:15-Jul-2020 Instruction Type:Patient Education [facility]; [facility] Work Phone: [email or web address]* Name Dates Details Patient Instructions Indication:Nonsmoker Start:15-Jul-2020 Instruction Type:Provider Instructions for Treatment How to Access Health Informa tion Online using Patient Portal and [employer] Apps Indication:Nonsmoker Start:15-Jul-2020 Instruction Type:Patient Education [facility]; [facility] Work Phone: instructions* Name Dates Details Patient Instructions Indication:Nonsmoker Start:29-Jul-2020 Instruction Type:Provider Instructions for Treatment How to Access Health Informa tion Online using Patient Portal and [employer] Apps Indication:Nonsmoker Start:29-Jul-2020 Instruction Type:Patient Education Patient Instructions Indication:Nonsmoker Start:15-Jul-2020 Instruction Type:Provider Instructions for Treatment How to Access Health Informa tion Online using Patient Portal and [employer] Apps Indication:Nonsmoker Start:15-Jul-2020 Instruction Type:Patient Education [facility]; [facility] Work Phone: instructions* Name Dates Details Patient Instructions Indication:BMI 22.0-22.9, adult Start:29-Jul-2020 Instruction Type:Provider Instructions for Treatment How to Access Health Informa tion Online using Patient Portal and [employer] Apps Indication:Nonsmoker Start:29-Jul-2020 Instruction Type:Patient Education Patient Instructions Indication:Nonsmoker Start:15-Jul-2020 Instruction Type:Provider Instructions for Treatment How to Access Health Informa tion Online using Patient Portal and [employer] Apps Indication:Nonsmoker Start:15-Jul-2020 Instruction Type:Patient Education [facility]; [facility] Work Phone: instructions* Name Dates Details Patient Instructions Indication:BMI 22.0-22.9, adult Start:29-Jul-2020 Instruction Type:Provider Instructions for Treatment How to Access Health Informa tion Online using Patient Portal and [employer] Apps Indication:Nonsmoker Start:29-Jul-2020 Instruction Type:Patient Education Patient Instructions Indication:Nonsmoker Start:15-Jul-2020 Instruction Type:Provider Instructions for Treatment How to Access Health Informa tion Online using Patient Portal and [employer] Apps Indication:Nonsmoker Start:15-Jul-2020 Instruction Type:Patient Education [facility]; [facility] Work Phone: instructions* Name Dates Details Patient Instructions Indication:BMI 22.0-22.9, adult Start:29-Jul-2020 Instruction Type:Provider Instructions for Treatment How to Access Health Informa tion Online using Patient Portal and [employer] Apps Indication:Nonsmoker Start:29-Jul-2020 Instruction Type:Patient Education Patient Instructions Indication:Nonsmoker Start:15-Jul-2020 Instruction Type:Provider Instructions for Treatment How to Access Health Informa tion Online using Patient Portal and [employer] Apps Indication:Nonsmoker Start:15-Jul-2020 Instruction Type:Patient Education [facility]; [facility] Work Phone: Instructions* Name Dates Details Patient Instructions Indication:BMI 22.0-22.9, adult Start:29-Jul-2020 Instruction Type:Provider Instructions for Treatment How to Access Health Informa tion Online using Patient Portal and [employer] Apps Indication:Nonsmoker Start:29-Jul-2020 Instruction Type:Patient Education Patient Instructions Indication:Nonsmoker Start:15-Jul-2020 Instruction Type:Provider Instructions for Treatment How to Access Health Informa tion Online using Patient Portal and [employer] Apps Indication:Nonsmoker Start:15-Jul-2020 Instruction Type:Patient Education [facility]; [facility] Work Phone: instructions* Name Dates Details Patient Instructions Indication:Nonsmoker Start:06-Feb-2021 Instruction Type:Provider Instructions for Treatment How to Access Health Informa tion Online using Patient Portal and [employer] Apps Indication:Nonsmoker Start:06-Feb-2021 Instruction Type:Patient Education Patient Instructions Indication:Nonsmoker Start:06-Oct-2020 Instruction Type:Provider Instructions for Treatment How to Access Health Informa tion Online using Patient Portal and [employer] Apps Indication:Nonsmoker Start:06-Oct-2020 Instruction Type:Patient Education Patient Instructions Indication:BMI 22.0-22.9, adult Start:29-Jul-2020 Instruction Type:Provider Instructions for Treatment How to Access Health Informa tion Online using Patient Portal and [employer] Apps Indication:Nonsmoker Start:29-Jul-2020 Instruction Type:Patient Education Patient Instructions Indication:Nonsmoker Start:15-Jul-2020 Instruction Type:Provider Instructions for Treatment How to Access Health Informa tion Online using Patient Portal and [employer] Apps Indication:Nonsmoker Start:15-Jul-2020 Instruction Type:Patient Education [facility]; [facility] Work Phone: instructions* Name Dates Details Patient Instructions Indication:Nonsmoker Start:06-Feb-2021 Instruction Type:Provider Instructions for Treatment How to Access Health Informa tion Online using Patient Portal and [employer] Apps Indication:Nonsmoker Start:06-Feb-2021 Instruction Type:Patient Education Patient Instructions Indication:Nonsmoker Start:06-Oct-2020 Instruction Type:Provider Instructions for Treatment How to Access Health Informa tion Online using Patient Portal and [employer] Apps Indication:Nonsmoker Start:06-Oct-2020 Instruction Type:Patient Education Patient Instructions Indication:BMI 22.0-22.9, adult Start:29-Jul-2020 Instruction Type:Provider Instructions for Treatment How to Access Health Informa tion Online using Patient Portal and [employer] Indication:Nonsmoker Start:29-Jul-2020 Instruction Type:Patient Education Patient Instructions Indication:Nonsmoker Start:15-Jul-2020 Instruction Type:Provider Instructions for Treatment How to Access Health Informa tion Online using Patient Portal and [employer] Apps Indication:Nonsmoker Start:15-Jul-2020 Instruction Type:Patient Education [facility]; [facility] Work Phone: instructions* Name Dates Details Patient Instructions Indication:Nonsmoker Start:18-Mar-2021 Instruction Type:Provider Instructions for Treatment How to Access Health Informa tion Online using Patient Portal and [employer] Apps Indication:Nonsmoker Start:18-Mar-2021 Instruction Type:Patient Education Patient Instructions Indication:Nonsmoker Start:06-Feb-2021 Instruction Type:Provider Instructions for Treatment How to Access Health Informa tion Online using Patient Portal and [employer] Apps Indication:Nonsmoker Start:06-Feb-2021 Instruction Type:Patient Education Patient Instructions Indication:Nonsmoker Start:06-Oct-2020 Instruction Type:Provider Instructions for Treatment How to Access Health Informa tion Online using Patient Portal and [employer] Apps Indication:Nonsmoker Start:06-Oct-2020 Instruction Type:Patient Education Patient Instructions Indication:BMI 22.0-22.9, adult Start:29-Jul-2020 Instruction Type:Provider Instructions for Treatment How to Access Health Informa tion Online using Patient Portal and [employer] Apps Indication:Nonsmoker Start:29-Jul-2020 Instruction Type:Patient Education Patient Instructions Indication:Nonsmoker Start:15-Jul-2020 Instruction Type:Provider Instructions for Treatment How to Access Health Informa tion Online using Patient Portal and [employer] Apps Indication:Nonsmoker Start:15-Jul-2020 Instruction Type:Patient Education [facility]; [facility] Work Phone: instructions* Name Dates Details Patient Instructions Indication:Nonsmoker Start:18-Mar-2021 Instruction Type:Provider Instructions for Treatment How to Access Health Informa tion Online using Patient Portal and [employer] Apps Indication:Nonsmoker Start:18-Mar-2021 Instruction Type:Patient Education Patient Instructions Indication:Nonsmoker Start:06-Feb-2021 Instruction Type:Provider Instructions for Treatment How to Access Health Informa tion Online using Patient Portal and [employer] Apps Indication:Nonsmoker Start:06-Feb-2021 Instruction Type:Patient Education Patient Instructions Indication:Nonsmoker Start:06-Oct-2020 Instruction Type:Provider Instructions for Treatment How to Access Health Informa tion Online using Patient Portal and [employer] Apps Indication:Nonsmoker Start:06-Oct-2020 Instruction Type:Patient Education Patient Instructions Indication:BMI 22.0-22.9, adult Start:29-Jul-2020 Instruction Type:Provider Instructions for Treatment How to Access Health Informa tion Online using Patient Portal and [employer] Apps Indication:Nonsmoker Start:29-Jul-2020 Instruction Type:Patient Education Patient Instructions Indication:Nonsmoker Start:15-Jul-2020 Instruction Type:Provider Instructions for Treatment How to Access Health Informa tion Online using Patient Portal and [employer] Apps Indication:Nonsmoker Start:15-Jul-2020 Instruction Type:Patient Education [facility]; [facility] Work Phone: instructions* Name Dates Details Patient Instructions Indication:BMI 23.0-23.9, adult Start:20-Mar-2021 Instruction Type:Provider Instructions for Treatment How to Access Health Informa tion Online using Patient Portal and [employer] Apps Indication:BMI 23.0-23.9, adult Start:20-Mar-2021 Instruction Type:Patient Education Patient Instructions Indication:Nonsmoker Start:18-Mar-2021 Instruction Type:Provider Instructions for Treatment How to Access Health Informa tion Online using Patient Portal and [employer] Apps Indication:Nonsmoker Start:18-Mar-2021 Instruction Type:Patient Education Patient Instructions Indication:Nonsmoker Start:06-Feb-2021 Instruction Type:Provider Instructions for Treatment How to Access Health Informa tion Online using Patient Portal and [employer] Apps Indication:Nonsmoker Start:06-Feb-2021 Instruction Type:Patient Education Patient Instructions Indication:Nonsmoker Start:06-Oct-2020 Instruction Type:Provider Instructions for Treatment How to Access Health Informa tion Online using Patient Portal and [employer] Apps Indication:Nonsmoker Start:06-Oct-2020 Instruction Type:Patient Education Patient Instructions Indication:BMI 22.0-22.9, adult Start:29-Jul-2020 Instruction Type:Provider Instructions for Treatment How to Access Health Informa tion Online using Patient Portal and [employer] Apps Indication:Nonsmoker Start:29-Jul-2020 Instruction Type:Patient Education Patient Instructions Indication:Nonsmoker Start:15-Jul-2020 Instruction Type:Provider Instructions for Treatment How to Access Health Informa tion Online using Patient Portal and [employer] Apps Indication:Nonsmoker Start:15-Jul-2020 Instruction Type:Patient Education [facility]; [facility] Work Phone: Instructions* Name Dates Details Patient Instructions Indication:BMI 23.0-23.9, adult Start:20-Mar-2021 Instruction Type:Provider Instructions for Treatment How to Access Health Informa tion Online using Patient Portal and [employer] Apps Indication:BMI 23.0-23.9, adult Start:20-Mar-2021 Instruction Type:Patient Education Patient Instructions Indication:Nonsmoker Start:18-Mar-2021 Instruction Type:Provider Instructions for Treatment How to Access Health Informa tion Online using Patient Portal and [employer] Apps Indication:Nonsmoker Start:18-Mar-2021 Instruction Type:Patient Education Patient Instructions Indication:Nonsmoker Start:06-Feb-2021 Instruction Type:Provider Instructions for Treatment How to Access Health Informa tion Online using Patient Portal and [employer] Apps Indication:Nonsmoker Start:06-Feb-2021 Instruction Type:Patient Education Patient Instructions Indication:Nonsmoker Start:06-Oct-2020 Instruction Type:Provider Instructions for Treatment How to Access Health Informa tion Online using Patient Portal and [employer] Apps Indication:Nonsmoker Start:06-Oct-2020 Instruction Type:Patient Education Patient Instructions Indication:BMI 22.0-22.9, adult Start:29-Jul-2020 Instruction Type:Provider Instructions for Treatment How to Access Health Informa tion Online using Patient Portal and [employer] Apps Indication:Nonsmoker Start:29-Jul-2020 Instruction Type:Patient Education Patient Instructions Indication:Nonsmoker Start:15-Jul-2020 Instruction Type:Provider Instructions for Treatment How to Access Health Informa tion Online using Patient Portal and [employer] Apps Indication:Nonsmoker Start:15-Jul-2020 Instruction Type:Patient Education [facility]; [facility] Work Phone: Instructions* Name Dates Details Patient Instructions Indication:Nonsmoker Start:08-Apr-2021 Instruction Type:Provider Instructions for Treatment How to Access Health Informa tion Online using Patient Portal and [employer] Apps Indication:Nonsmoker Start:08-Apr-2021 Instruction Type:Patient Education Patient Instructions Indication:BMI 23.0-23.9, adult Start:20-Mar-2021 Instruction Type:Provider Instructions for Treatment How to Access Health Informa tion Online using Patient Portal and [employer] Apps Indication:BMI 23.0-23.9, adult Start:20-Mar-2021 Instruction Type:Patient Education Patient Instructions Indication:Nonsmoker Start:18-Mar-2021 Instruction Type:Provider Instructions for Treatment How to Access Health Informa tion Online using Patient Portal and [employer] Apps Indication:Nonsmoker Start:18-Mar-2021 Instruction Type:Patient Education Patient Instructions Indication:Nonsmoker Start:06-Feb-2021 Instruction Type:Provider Instructions for Treatment How to Access Health Informa tion Online using Patient Portal and [employer] Apps Indication:Nonsmoker Start:06-Feb-2021 Instruction Type:Patient Education Patient Instructions Indication:Nonsmoker Start:06-Oct-2020 Instruction Type:Provider Instructions for Treatment How to Access Health Informa tion Online using Patient Portal and [employer] Apps Indication:Nonsmoker Start:06-Oct-2020 Instruction Type:Patient Education Patient Instructions Indication:BMI 22.0-22.9, adult Start:29-Jul-2020 Instruction Type:Provider Instructions for Treatment How to Access Health Informa tion Online using Patient Portal and [employer] Apps Indication:Nonsmoker Start:29-Jul-2020 Instruction Type:Patient Education Patient Instructions Indication:Nonsmoker Start:15-Jul-2020 Instruction Type:Provider Instructions for Treatment How to Access Health Informa tion Online using Patient Portal and [employer] Apps Indication:Nonsmoker Start:15-Jul-2020 Instruction Type:Patient Education [facility]; [facility] Work Phone: Instructions* Name Dates Details Patient Instructions Indication:Nonsmoker Start:06-May-2021 Instruction Type:Provider Instructions for Treatment How to Access Health Informa tion Online using Patient Portal and [employer] Apps Indication:Nonsmoker Start:06-May-2021 Instruction Type:Patient Education Patient Instructions Indication:Nonsmoker Start:08-Apr-2021 Instruction Type:Provider Instructions for Treatment How to Access Health Informa tion Online using Patient Portal and [employer] Apps Indication:Nonsmoker Start:08-Apr-2021 Instruction Type:Patient Education Patient Instructions Indication:BMI 23.0-23.9, adult Start:20-Mar-2021 Instruction Type:Provider Instructions for Treatment How to Access Health Informa tion Online using Patient Portal and [employer] Apps Indication:BMI 23.0-23.9, adult Start:20-Mar-2021 Instruction Type:Patient Education Patient Instructions Indication:Nonsmoker Start:18-Mar-2021 Instruction Type:Provider Instructions for Treatment How to Access Health Informa tion Online using Patient Portal and [employer] Apps Indication:Nonsmoker Start:18-Mar-2021 Instruction Type:Patient Education Patient Instructions Indication:Nonsmoker Start:06-Feb-2021 Instruction Type:Provider Instructions for Treatment How to Access Health Informa tion Online using Patient Portal and [employer] Apps Indication:Nonsmoker Start:06-Feb-2021 Instruction Type:Patient Education Patient Instructions Indication:Nonsmoker Start:06-Oct-2020 Instruction Type:Provider Instructions for Treatment How to Access Health Informa tion Online using Patient Portal and [employer] Apps Indication:Nonsmoker Start:06-Oct-2020 Instruction Type:Patient Education Patient Instructions Indication:BMI 22.0-22.9, adult Start:29-Jul-2020 Instruction Type:Provider Instructions for Treatment How to Access Health Informa tion Online using Patient Portal and [employer] Apps Indication:Nonsmoker Start:29-Jul-2020 Instruction Type:Patient Education Patient Instructions Indication:Nonsmoker Start:15-Jul-2020 Instruction Type:Provider Instructions for Treatment How to Access Health Informa tion Online using Patient Portal and [employer] Apps Indication:Nonsmoker Start:15-Jul-2020 Instruction Type:Patient Education [facility]; [facility] Work Phone: Instructions* Name Dates Details Patient Instructions Indication:Nonsmoker Start:06-May-2021 Instruction Type:Provider Instructions for Treatment How to Access Health Informa tion Online using Patient Portal and [employer] Apps Indication:Nonsmoker Start:06-May-2021 Instruction Type:Patient Education Patient Instructions Indication:Nonsmoker Start:08-Apr-2021 Instruction Type:Provider Instructions for Treatment How to Access Health Informa tion Online using Patient Portal and [employer] Apps Indication:Nonsmoker Start:08-Apr-2021 Instruction Type:Patient Education Patient Instructions Indication:BMI 23.0-23.9, adult Start:20-Mar-2021 Instruction Type:Provider Instructions for Treatment How to Access Health Informa tion Online using Patient Portal and [employer] Apps Indication:BMI 23.0-23.9, adult Start:20-Mar-2021 Instruction Type:Patient Education Patient Instructions Indication:Nonsmoker Start:18-Mar-2021 Instruction Type:Provider Instructions for Treatment How to Access Health Informa tion Online using Patient Portal and [employer] Apps Indication:Nonsmoker Start:18-Mar-2021 Instruction Type:Patient Education Patient Instructions Indication:Nonsmoker Start:06-Feb-2021 Instruction Type:Provider Instructions for Treatment How to Access Health Informa tion Online using Patient Portal and [employer] Apps Indication:Nonsmoker Start:06-Feb-2021 Instruction Type:Patient Education Patient Instructions Indication:Nonsmoker Start:06-Oct-2020 Instruction Type:Provider Instructions for Treatment How to Access Health Informa tion Online using Patient Portal and [employer] Apps Indication:Nonsmoker Start:06-Oct-2020 Instruction Type:Patient Education Patient Instructions Indication:BMI 22.0-22.9, adult Start:29-Jul-2020 Instruction Type:Provider Instructions for Treatment How to Access Health Informa tion Online using Patient Portal and [employer] Apps Indication:Nonsmoker Start:29-Jul-2020 Instruction Type:Patient Education Patient Instructions Indication:Nonsmoker Start:15-Jul-2020 Instruction Type:Provider Instructions for Treatment How to Access Health Informa tion Online using Patient Portal and [employer] Apps Indication:Nonsmoker Start:15-Jul-2020 Instruction Type:Patient Education [facility]; [facility] Work Phone: Instructions* Name Dates Details Patient Instructions Indication:Splinter of foot Start:03-Jul-2021 Instruction Type:Provider Instructions for Treatment How to Access Health Informa tion Online using Patient Portal and [employer] Apps Indication:Splinter of foot Start:03-Jul-2021 Instruction Type:Patient Education Patient Instructions Indication:BMI 23.0-23.9, adult Start:27-May-2021 Instruction Type:Provider Instructions for Treatment How to Access Health Informa tion Online using Patient Portal and [employer] Apps Indication:BMI 23.0-23.9, adult Start:27-May-2021 Instruction Type:Patient Education Patient Instructions Indication:Nonsmoker Start:13-May-2021 Instruction Type:Provider Instructions for Treatment How to Access Health Informa tion Online using Patient Portal and [employer] Apps Indication:Nonsmoker Start:13-May-2021 Instruction Type:Patient Education Patient Instructions Indication:Nonsmoker Start:06-May-2021 Instruction Type:Provider Instructions for Treatment How to Access Health Informa tion Online using Patient Portal and [employer] Apps Indication:Nonsmoker Start:06-May-2021 Instruction Type:Patient Education Patient Instructions Indication:Nonsmoker Start:08-Apr-2021 Instruction Type:Provider Instructions for Treatment How to Access Health Informa tion Online using Patient Portal and [employer] Apps Indication:Nonsmoker Start:08-Apr-2021 Instruction Type:Patient Education Patient Instructions Indication:BMI 23.0-23.9, adult Start:20-Mar-2021 Instruction Type:Provider Instructions for Treatment How to Access Health Informa tion Online using Patient Portal and [employer] Apps Indication:BMI 23.0-23.9, adult Start:20-Mar-2021 Instruction Type:Patient Education Patient Instructions Indication:Nonsmoker Start:18-Mar-2021 Instruction Type:Provider Instructions for Treatment How to Access Health Informa tion Online using Patient Portal and [employer] Apps Indication:Nonsmoker Start:18-Mar-2021 Instruction Type:Patient Education Patient Instructions Indication:Nonsmoker Start:06-Feb-2021 Instruction Type:Provider Instructions for Treatment How to Access Health Informa tion Online using Patient Portal and [employer] Apps Indication:Nonsmoker Start:06-Feb-2021 Instruction Type:Patient Education Patient Instructions Indication:Nonsmoker Start:06-Oct-2020 Instruction Type:Provider Instructions for Treatment How to Access Health Informa tion Online using Patient Portal and [employer] Apps Indication:Nonsmoker Start:06-Oct-2020 Instruction Type:Patient Education Patient Instructions Indication:BMI 22.0-22.9, adult Start:29-Jul-2020 Instruction Type:Provider Instructions for Treatment How to Access Health Informa tion Online using Patient Portal and [employer] Apps Indication:Nonsmoker Start:29-Jul-2020 Instruction Type:Patient Education Patient Instructions Indication:Nonsmoker Start:15-Jul-2020 Instruction Type:Provider Instructions for Treatment How to Access Health Informa tion Online using Patient Portal and [employer] Apps Indication:Nonsmoker Start:15-Jul-2020 Instruction Type:Patient Education [facility]; [facility] Work Phone: Instructions* Name Dates Details Patient Instructions Indication:Impaired fasting glucose Start:12-Aug-2021 Instruction Type:Provider Instructions for Treatment How to Access Health Informa tion Online using Patient Portal and [employer] Apps Indication:Impaired fasting glucose Start:12-Aug-2021 Instruction Type:Patient Education Patient Instructions Indication:Splinter of foot Start:03-Jul-2021 Instruction Type:Provider Instructions for Treatment How to Access Health Informa tion Online using Patient Portal and [employer] Apps Indication:Splinter of foot Start:03-Jul-2021 Instruction Type:Patient Education Patient Instructions Indication:BMI 23.0-23.9, adult Start:27-May-2021 Instruction Type:Provider Instructions for Treatment How to Access Health Informa tion Online using Patient Portal and [employer] Apps Indication:BMI 23.0-23.9, adult Start:27-May-2021 Instruction Type:Patient Education Patient Instructions Indication:Nonsmoker Start:13-May-2021 Instruction Type:Provider Instructions for Treatment How to Access Health Informa tion Online using Patient Portal and [employer] Apps Indication:Nonsmoker Start:13-May-2021 Instruction Type:Patient Education Patient Instructions Indication:Nonsmoker Start:06-May-2021 Instruction Type:Provider Instructions for Treatment How to Access Health Informa tion Online using Patient Portal and [employer] Apps Indication:Nonsmoker Start:06-May-2021 Instruction Type:Patient Education Patient Instructions Indication:Nonsmoker Start:08-Apr-2021 Instruction Type:Provider Instructions for Treatment How to Access Health Informa tion Online using Patient Portal and [employer] Apps Indication:Nonsmoker Start:08-Apr-2021 Instruction Type:Patient Education Patient Instructions Indication:BMI 23.0-23.9, adult Start:20-Mar-2021 Instruction Type:Provider Instructions for Treatment How to Access Health Informa tion Online using Patient Portal and [employer] Apps Indication:BMI 23.0-23.9, adult Start:20-Mar-2021 Instruction Type:Patient Education Patient Instructions Indication:Nonsmoker Start:18-Mar-2021 Instruction Type:Provider Instructions for Treatment How to Access Health Informa tion Online using Patient Portal and [employer] Apps Indication:Nonsmoker Start:18-Mar-2021 Instruction Type:Patient Education Patient Instructions Indication:Nonsmoker Start:06-Feb-2021 Instruction Type:Provider Instructions for Treatment How to Access Health Informa tion Online using Patient Portal and [employer] Apps Indication:Nonsmoker Start:06-Feb-2021 Instruction Type:Patient Education Patient Instructions Indication:Nonsmoker Start:06-Oct-2020 Instruction Type:Provider Instructions for Treatment How to Access Health Informa tion Online using Patient Portal and [employer] [employer] Apps Indication:Nonsmoker Start:06-Oct-2020 Instruction Type:Patient Education Patient Instructions Indication:BMI 22.0-22.9, adult Start:29-Jul-2020 Instruction Type:Provider Instructions for Treatment How to Access Health Informa tion Online using Patient Portal and [employer] Apps Indication:Nonsmoker Start:29-Jul-2020 Instruction Type:Patient Education Patient Instructions Indication:Nonsmoker Start:15-Jul-2020 Instruction Type:Provider Instructions for Treatment How to Access Health Informa tion Online using Patient Portal and [employer] [employer] Apps Indication:Nonsmoker Start:15-Jul-2020 Instruction Type:Patient Education [facility]; [facility] Work Phone: Instructions* Name Dates Details Patient Instructions Indication:Impaired fasting glucose Start:12-Aug-2021 Instruction Type:Provider Instructions for Treatment How to Access Health Informa tion Online using Patient Portal and [employer] [employer] Apps Indication:Impaired fasting glucose Start:12-Aug-2021 Instruction Type:Patient Education Patient Instructions Indication:Splinter of foot Start:03-Jul-2021 Instruction Type:Provider Instructions for Treatment How to Access Health Informa tion Online using Patient Portal and [employer] Apps Indication:Splinter of foot Start:03-Jul-2021 Instruction Type:Patient Education Patient Instructions Indication:BMI 23.0-23.9, adult Start:27-May-2021 Instruction Type:Provider Instructions for Treatment How to Access Health Informa tion Online using Patient Portal and [employer] Apps Indication:BMI 23.0-23.9, adult Start:27-May-2021 Instruction Type:Patient Education Patient Instructions Indication:Nonsmoker Start:13-May-2021 Instruction Type:Provider Instructions for Treatment How to Access Health Informa tion Online using Patient Portal and [employer] Apps Indication:Nonsmoker Start:13-May-2021 Instruction Type:Patient Education Patient Instructions Indication:Nonsmoker Start:06-May-2021 Instruction Type:Provider Instructions for Treatment How to Access Health Informa tion Online using Patient Portal and [employer] Apps Indication:Nonsmoker Start:06-May-2021 Instruction Type:Patient Education Patient Instructions Indication:Nonsmoker Start:08-Apr-2021 Instruction Type:Provider Instructions for Treatment How to Access Health Informa tion Online using Patient Portal and [employer] Apps Indication:Nonsmoker Start:08-Apr-2021 Instruction Type:Patient Education Patient Instructions Indication:BMI 23.0-23.9, adult Start:20-Mar-2021 Instruction Type:Provider Instructions for Treatment How to Access Health Informa tion Online using Patient Portal and [employer] Apps Indication:BMI 23.0-23.9, adult Start:20-Mar-2021 Instruction Type:Patient Education Patient Instructions Indication:Nonsmoker Start:18-Mar-2021 Instruction Type:Provider Instructions for Treatment How to Access Health Informa tion Online using Patient Portal and [employer] Apps Indication:Nonsmoker Start:18-Mar-2021 Instruction Type:Patient Education Patient Instructions Indication:Nonsmoker Start:06-Feb-2021 Instruction Type:Provider Instructions for Treatment How to Access Health Informa tion Online using Patient Portal and [employer] Apps Indication:Nonsmoker Start:06-Feb-2021 Instruction Type:Patient Education Patient Instructions Indication:Nonsmoker Start:06-Oct-2020 Instruction Type:Provider Instructions for Treatment How to Access Health Informa tion Online using Patient Portal and [employer] Apps Indication:Nonsmoker Start:06-Oct-2020 Instruction Type:Patient Education Patient Instructions Indication:BMI 22.0-22.9, adult Start:29-Jul-2020 Instruction Type:Provider Instructions for Treatment How to Access Health Informa tion Online using Patient Portal and [employer] Apps Indication:Nonsmoker Start:29-Jul-2020 Instruction Type:Patient Education Patient Instructions Indication:Nonsmoker Start:15-Jul-2020 Instruction Type:Provider Instructions for Treatment How to Access Health Informa tion Online using Patient Portal and [employer] Indication:Nonsmoker Start:15-Jul-2020 Instruction Type:Patient Education [facility]; [facility] Work Phone: Instructions* Name Dates Details Patient Instructions Indication:Impaired fasting glucose Start:12-Aug-2021 Instruction Type:Provider Instructions for Treatment How to Access Health Informa tion Online using Patient Portal and [employer] Apps Indication:Impaired fasting glucose Start:12-Aug-2021 Instruction Type:Patient Education Patient Instructions Indication:Splinter of foot Start:03-Jul-2021 Instruction Type:Provider Instructions for Treatment How to Access Health Informa tion Online using Patient Portal and [employer] Apps Indication:Splinter of foot Start:03-Jul-2021 Instruction Type:Patient Education Patient Instructions Indication:BMI 23.0-23.9, adult Start:27-May-2021 Instruction Type:Provider Instructions for Treatment How to Access Health Informa tion Online using Patient Portal and [employer] Apps Indication:BMI 23.0-23.9, adult Start:27-May-2021 Instruction Type:Patient Education Patient Instructions Indication:Nonsmoker Start:13-May-2021 Instruction Type:Provider Instructions for Treatment How to Access Health Informa tion Online using Patient Portal and [employer] Apps Indication:Nonsmoker Start:13-May-2021 Instruction Type:Patient Education Patient Instructions Indication:Nonsmoker Start:06-May-2021 Instruction Type:Provider Instructions for Treatment How to Access Health Informa tion Online using Patient Portal and [employer] Apps Indication:Nonsmoker Start:06-May-2021 Instruction Type:Patient Education Patient Instructions Indication:Nonsmoker Start:08-Apr-2021 Instruction Type:Provider Instructions for Treatment How to Access Health Informa tion Online using Patient Portal and [employer] Apps Indication:Nonsmoker Start:08-Apr-2021 Instruction Type:Patient Education Patient Instructions Indication:BMI 23.0-23.9, adult Start:20-Mar-2021 Instruction Type:Provider Instructions for Treatment How to Access Health Informa tion Online using Patient Portal and [employer] Apps Indication:BMI 23.0-23.9, adult Start:20-Mar-2021 Instruction Type:Patient Education Patient Instructions Indication:Nonsmoker Start:18-Mar-2021 Instruction Type:Provider Instructions for Treatment How to Access Health Informa tion Online using Patient Portal and [employer] Apps Indication:Nonsmoker Start:18-Mar-2021 Instruction Type:Patient Education Patient Instructions Indication:Nonsmoker Start:06-Feb-2021 Instruction Type:Provider Instructions for Treatment How to Access Health Informa tion Online using Patient Portal and [employer] Apps Indication:Nonsmoker Start:06-Feb-2021 Instruction Type:Patient Education Patient Instructions Indication:Nonsmoker Start:06-Oct-2020 Instruction Type:Provider Instructions for Treatment How to Access Health Informa tion Online using Patient Portal and [employer] Apps Indication:Nonsmoker Start:06-Oct-2020 Instruction Type:Patient Education Patient Instructions Indication:BMI 22.0-22.9, adult Start:29-Jul-2020 Instruction Type:Provider Instructions for Treatment How to Access Health Informa tion Online using Patient Portal and [employer] Apps Indication:Nonsmoker Start:29-Jul-2020 Instruction Type:Patient Education Patient Instructions Indication:Nonsmoker Start:15-Jul-2020 Instruction Type:Provider Instructions for Treatment How to Access Health Informa tion Online using Patient Portal and [employer] Apps Indication:Nonsmoker Start:15-Jul-2020 Instruction Type:Patient Education [facility]; [facility] Work Phone: Instructions* Name Dates Details Patient Instructions Indication:Impaired fasting glucose Start:12-Aug-2021 Instruction Type:Provider Instructions for Treatment How to Access Health Informa tion Online using Patient Portal and [employer] Apps Indication:Impaired fasting glucose Start:12-Aug-2021 Instruction Type:Patient Education Patient Instructions Indication:Splinter of foot Start:03-Jul-2021 Instruction Type:Provider Instructions for Treatment How to Access Health Informa tion Online using Patient Portal and [employer] Apps Indication:Splinter of foot Start:03-Jul-2021 Instruction Type:Patient Education Patient Instructions Indication:BMI 23.0-23.9, adult Start:27-May-2021 Instruction Type:Provider Instructions for Treatment How to Access Health Informa tion Online using Patient Portal and [employer] Apps Indication:BMI 23.0-23.9, adult Start:27-May-2021 Instruction Type:Patient Education Patient Instructions Indication:Nonsmoker Start:13-May-2021 Instruction Type:Provider Instructions for Treatment How to Access Health Informa tion Online using Patient Portal and [employer] Apps Indication:Nonsmoker Start:13-May-2021 Instruction Type:Patient Education Patient Instructions Indication:Nonsmoker Start:06-May-2021 Instruction Type:Provider Instructions for Treatment How to Access Health Informa tion Online using Patient Portal and [employer] Apps Indication:Nonsmoker Start:06-May-2021 Instruction Type:Patient Education Patient Instructions Indication:Nonsmoker Start:08-Apr-2021 Instruction Type:Provider Instructions for Treatment How to Access Health Informa tion Online using Patient Portal and [employer] Apps Indication:Nonsmoker Start:08-Apr-2021 Instruction Type:Patient Education Patient Instructions Indication:BMI 23.0-23.9, adult Start:20-Mar-2021 Instruction Type:Provider Instructions for Treatment How to Access Health Informa tion Online using Patient Portal and [employer] Apps Indication:BMI 23.0-23.9, adult Start:20-Mar-2021 Instruction Type:Patient Education Patient Instructions Indication:Nonsmoker Start:18-Mar-2021 Instruction Type:Provider Instructions for Treatment How to Access Health Informa tion Online using Patient Portal and [employer] Apps Indication:Nonsmoker Start:18-Mar-2021 Instruction Type:Patient Education Patient Instructions Indication:Nonsmoker Start:06-Feb-2021 Instruction Type:Provider Instructions for Treatment How to Access Health Informa tion Online using Patient Portal and [employer] Apps Indication:Nonsmoker Start:06-Feb-2021 Instruction Type:Patient Education Patient Instructions Indication:Nonsmoker Start:06-Oct-2020 Instruction Type:Provider Instructions for Treatment How to Access Health Informa tion Online using Patient Portal and [employer] Apps Indication:Nonsmoker Start:06-Oct-2020 Instruction Type:Patient Education Patient Instructions Indication:BMI 22.0-22.9, adult Start:29-Jul-2020 Instruction Type:Provider Instructions for Treatment How to Access Health Informa tion Online using Patient Portal and [employer] Apps Indication:Nonsmoker Start:29-Jul-2020 Instruction Type:Patient Education Patient Instructions Indication:Nonsmoker Start:15-Jul-2020 Instruction Type:Provider Instructions for Treatment How to Access Health Informa tion Online using Patient Portal and [employer] Apps Indication:Nonsmoker Start:15-Jul-2020 Instruction Type:Patient Education [facility]; [facility] Work Phone: Instructions* Name Dates Details Patient Instructions Indication:BMI 22.0-22.9, adult Start:27-Aug-2021 Instruction Type:Provider Instructions for Treatment How to Access Health Informa tion Online using Patient Portal and [employer] Apps Indication:BMI 22.0-22.9, adult Start:27-Aug-2021 Instruction Type:Patient Education Patient Instructions Indication:Impaired fasting glucose Start:12-Aug-2021 Instruction Type:Provider Instructions for Treatment How to Access Health Informa tion Online using Patient Portal and [employer] Apps Indication:Impaired fasting glucose Start:12-Aug-2021 Instruction Type:Patient Education Patient Instructions Indication:Splinter of foot Start:03-Jul-2021 Instruction Type:Provider Instructions for Treatment How to Access Health Informa tion Online using Patient Portal and [employer] Apps Indication:Splinter of foot Start:03-Jul-2021 Instruction Type:Patient Education Patient Instructions Indication:BMI 23.0-23.9, adult Start:27-May-2021 Instruction Type:Provider Instructions for Treatment How to Access Health Informa tion Online using Patient Portal and [employer] Apps Indication:BMI 23.0-23.9, adult Start:27-May-2021 Instruction Type:Patient Education Patient Instructions Indication:Nonsmoker Start:13-May-2021 Instruction Type:Provider Instructions for Treatment How to Access Health Informa tion Online using Patient Portal and [employer] Apps Indication:Nonsmoker Start:13-May-2021 Instruction Type:Patient Education Patient Instructions Indication:Nonsmoker Start:06-May-2021 Instruction Type:Provider Instructions for Treatment How to Access Health Informa tion Online using Patient Portal and [employer] Apps Indication:Nonsmoker Start:06-May-2021 Instruction Type:Patient Education Patient Instructions Indication:Nonsmoker Start:08-Apr-2021 Instruction Type:Provider Instructions for Treatment How to Access Health Informa tion Online using Patient Portal and [employer] Apps Indication:Nonsmoker Start:08-Apr-2021 Instruction Type:Patient Education Patient Instructions Indication:BMI 23.0-23.9, adult Start:20-Mar-2021 Instruction Type:Provider Instructions for Treatment How to Access Health Informa tion Online using Patient Portal and [employer] Apps Indication:BMI 23.0-23.9, adult Start:20-Mar-2021 Instruction Type:Patient Education Patient Instructions Indication:Nonsmoker Start:18-Mar-2021 Instruction Type:Provider Instructions for Treatment How to Access Health Informa tion Online using Patient Portal and [employer] Apps Indication:Nonsmoker Start:18-Mar-2021 Instruction Type:Patient Education Patient Instructions Indication:Nonsmoker Start:06-Feb-2021 Instruction Type:Provider Instructions for Treatment How to Access Health Informa tion Online using Patient Portal and [employer] Apps Indication:Nonsmoker Start:06-Feb-2021 Instruction Type:Patient Education Patient Instructions Indication:Nonsmoker Start:06-Oct-2020 Instruction Type:Provider Instructions for Treatment How to Access Health Informa tion Online using Patient Portal and [employer] Apps Indication:Nonsmoker Start:06-Oct-2020 Instruction Type:Patient Education Patient Instructions Indication:BMI 22.0-22.9, adult Start:29-Jul-2020 Instruction Type:Provider Instructions for Treatment How to Access Health Informa tion Online using Patient Portal and [employer] Apps Indication:Nonsmoker Start:29-Jul-2020 Instruction Type:Patient Education Patient Instructions Indication:Nonsmoker Start:15-Jul-2020 Instruction Type:Provider Instructions for Treatment How to Access Health Informa tion Online using Patient Portal and [employer] Apps Indication:Nonsmoker Start:15-Jul-2020 Instruction Type:Patient Education [facility]; [facility] Work Phone: Instructions* Name Dates Details Patient Instructions Indication:UTI symptoms Start:15-Sep-2021 Instruction Type:Provider Instructions for Treatment How to Access Health Informa tion Online using Patient Portal and [employer] Apps Indication:UTI symptoms Start:15-Sep-2021 Instruction Type:Patient Education Patient Instructions Indication:BMI 22.0-22.9, adult Start:27-Aug-2021 Instruction Type:Provider Instructions for Treatment How to Access Health Informa tion Online using Patient Portal and [employer] Apps Indication:BMI 22.0-22.9, adult Start:27-Aug-2021 Instruction Type:Patient Education Patient Instructions Indication:Impaired fasting glucose Start:12-Aug-2021 Instruction Type:Provider Instructions for Treatment How to Access Health Informa tion Online using Patient Portal and [employer] Apps Indication:Impaired fasting glucose Start:12-Aug-2021 Instruction Type:Patient Education Patient Instructions Indication:Splinter of foot Start:03-Jul-2021 Instruction Type:Provider Instructions for Treatment How to Access Health Informa tion Online using Patient Portal and [employer] Apps Indication:Splinter of foot Start:03-Jul-2021 Instruction Type:Patient Education Patient Instructions Indication:BMI 23.0-23.9, adult Start:27-May-2021 Instruction Type:Provider Instructions for Treatment How to Access Health Informa tion Online using Patient Portal and [employer] Apps Indication:BMI 23.0-23.9, adult Start:27-May-2021 Instruction Type:Patient Education Patient Instructions Indication:Nonsmoker Start:13-May-2021 Instruction Type:Provider Instructions for Treatment How to Access Health Informa tion Online using Patient Portal and [employer] Apps Indication:Nonsmoker Start:13-May-2021 Instruction Type:Patient Education Patient Instructions Indication:Nonsmoker Start:06-May-2021 Instruction Type:Provider Instructions for Treatment How to Access Health Informa tion Online using Patient Portal and [employer] Apps Indication:Nonsmoker Start:06-May-2021 Instruction Type:Patient Education Patient Instructions Indication:Nonsmoker Start:08-Apr-2021 Instruction Type:Provider Instructions for Treatment How to Access Health Informa tion Online using Patient Portal and [employer] Apps Indication:Nonsmoker Start:08-Apr-2021 Instruction Type:Patient Education Patient Instructions Indication:BMI 23.0-23.9, adult Start:20-Mar-2021 Instruction Type:Provider Instructions for Treatment How to Access Health Informa tion Online using Patient Portal and [employer] Apps Indication:BMI 23.0-23.9, adult Start:20-Mar-2021 Instruction Type:Patient Education Patient Instructions Indication:Nonsmoker Start:18-Mar-2021 Instruction Type:Provider Instructions for Treatment How to Access Health Informa tion Online using Patient Portal and [employer] Apps Indication:Nonsmoker Start:18-Mar-2021 Instruction Type:Patient Education Patient Instructions Indication:Nonsmoker Start:06-Feb-2021 Instruction Type:Provider Instructions for Treatment How to Access Health Informa tion Online using Patient Portal and [employer] Indication:Nonsmoker Start:06-Feb-2021 Instruction Type:Patient Education Patient Instructions Indication:Nonsmoker Start:06-Oct-2020 Instruction Type:Provider Instructions for Treatment How to Access Health Informa tion Online using Patient Portal and [employer] Apps Indication:Nonsmoker Start:06-Oct-2020 Instruction Type:Patient Education Patient Instructions Indication:BMI 22.0-22.9, adult Start:29-Jul-2020 Instruction Type:Provider Instructions for Treatment How to Access Health Informa tion Online using Patient Portal and [employer] Apps Indication:Nonsmoker Start:29-Jul-2020 Instruction Type:Patient Education Patient Instructions Indication:Nonsmoker Start:15-Jul-2020 Instruction Type:Provider Instructions for Treatment How to Access Health Informa tion Online using Patient Portal and [employer] Indication:Nonsmoker Start:15-Jul-2020 Instruction Type:Patient Education [facility]; [facility] Work Phone: Instructions* Name Dates Details Patient Instructions Indication:UTI symptoms Start:15-Sep-2021 Instruction Type:Provider Instructions for Treatment How to Access Health Informa tion Online using Patient Portal and [employer] Apps Indication:UTI symptoms Start:15-Sep-2021 Instruction Type:Patient Education Patient Instructions Indication:BMI 22.0-22.9, adult Start:27-Aug-2021 Instruction Type:Provider Instructions for Treatment How to Access Health Informa tion Online using Patient Portal and [employer] Apps Indication:BMI 22.0-22.9, adult Start:27-Aug-2021 Instruction Type:Patient Education Patient Instructions Indication:Impaired fasting glucose Start:12-Aug-2021 Instruction Type:Provider Instructions for Treatment How to Access Health Informa tion Online using Patient Portal and [employer] Apps Indication:Impaired fasting glucose Start:12-Aug-2021 Instruction Type:Patient Education Patient Instructions Indication:Splinter of foot Start:03-Jul-2021 Instruction Type:Provider Instructions for Treatment How to Access Health Informa tion Online using Patient Portal and [employer] Apps Indication:Splinter of foot Start:03-Jul-2021 Instruction Type:Patient Education Patient Instructions Indication:BMI 23.0-23.9, adult Start:27-May-2021 Instruction Type:Provider Instructions for Treatment How to Access Health Informa tion Online using Patient Portal and [employer] Apps Indication:BMI 23.0-23.9, adult Start:27-May-2021 Instruction Type:Patient Education Patient Instructions Indication:Nonsmoker Start:13-May-2021 Instruction Type:Provider Instructions for Treatment How to Access Health Informa tion Online using Patient Portal and [employer] Apps Indication:Nonsmoker Start:13-May-2021 Instruction Type:Patient Education Patient Instructions Indication:Nonsmoker Start:06-May-2021 Instruction Type:Provider Instructions for Treatment How to Access Health Informa tion Online using Patient Portal and [employer] Apps Indication:Nonsmoker Start:06-May-2021 Instruction Type:Patient Education Patient Instructions Indication:Nonsmoker Start:08-Apr-2021 Instruction Type:Provider Instructions for Treatment How to Access Health Informa tion Online using Patient Portal and [employer] Apps Indication:Nonsmoker Start:08-Apr-2021 Instruction Type:Patient Education Patient Instructions Indication:BMI 23.0-23.9, adult Start:20-Mar-2021 Instruction Type:Provider Instructions for Treatment How to Access Health Informa tion Online using Patient Portal and [employer] Apps Indication:BMI 23.0-23.9, adult Start:20-Mar-2021 Instruction Type:Patient Education Patient Instructions Indication:Nonsmoker Start:18-Mar-2021 Instruction Type:Provider Instructions for Treatment How to Access Health Informa tion Online using Patient Portal and [employer] Apps Indication:Nonsmoker Start:18-Mar-2021 Instruction Type:Patient Education Patient Instructions Indication:Nonsmoker Start:06-Feb-2021 Instruction Type:Provider Instructions for Treatment How to Access Health Informa tion Online using Patient Portal and [employer] Apps Indication:Nonsmoker Start:06-Feb-2021 Instruction Type:Patient Education Patient Instructions Indication:Nonsmoker Start:06-Oct-2020 Instruction Type:Provider Instructions for Treatment How to Access Health Informa tion Online using Patient Portal and [employer] Apps Indication:Nonsmoker Start:06-Oct-2020 Instruction Type:Patient Education Patient Instructions Indication:BMI 22.0-22.9, adult Start:29-Jul-2020 Instruction Type:Provider Instructions for Treatment How to Access Health Informa tion Online using Patient Portal and [employer] Apps Indication:Nonsmoker Start:29-Jul-2020 Instruction Type:Patient Education Patient Instructions Indication:Nonsmoker Start:15-Jul-2020 Instruction Type:Provider Instructions for Treatment How to Access Health Informa tion Online using Patient Portal and [employer] Apps Indication:Nonsmoker Start:15-Jul-2020 Instruction Type:Patient Education [facility]; [facility] Work Phone: Instructions* Name Dates Details Patient Instructions Indication:UTI symptoms Start:15-Sep-2021 Instruction Type:Provider Instructions for Treatment How to Access Health Informa tion Online using Patient Portal and [employer] Apps Indication:UTI symptoms Start:15-Sep-2021 Instruction Type:Patient Education Patient Instructions Indication:BMI 22.0-22.9, adult Start:27-Aug-2021 Instruction Type:Provider Instructions for Treatment How to Access Health Informa tion Online using Patient Portal and [employer] Indication:BMI 22.0-22.9, adult Start:27-Aug-2021 Instruction Type:Patient Education Patient Instructions Indication:Impaired fasting glucose Start:12-Aug-2021 Instruction Type:Provider Instructions for Treatment How to Access Health Informa tion Online using Patient Portal and [employer] Indication:Impaired fasting glucose Start:12-Aug-2021 Instruction Type:Patient Education Patient Instructions Indication:Splinter of foot Start:03-Jul-2021 Instruction Type:Provider Instructions for Treatment How to Access Health Informa tion Online using Patient Portal and [employer] Apps Indication:Splinter of foot Start:03-Jul-2021 Instruction Type:Patient Education Patient Instructions Indication:BMI 23.0-23.9, adult Start:27-May-2021 Instruction Type:Provider Instructions for Treatment How to Access Health Informa tion Online using Patient Portal and [employer] Indication:BMI 23.0-23.9, adult Start:27-May-2021 Instruction Type:Patient Education Patient Instructions Indication:Nonsmoker Start:13-May-2021 Instruction Type:Provider Instructions for Treatment How to Access Health Informa tion Online using Patient Portal and [employer] Indication:Nonsmoker Start:13-May-2021 Instruction Type:Patient Education Patient Instructions Indication:Nonsmoker Start:06-May-2021 Instruction Type:Provider Instructions for Treatment How to Access Health Informa tion Online using Patient Portal and [employer] Indication:Nonsmoker Start:06-May-2021 Instruction Type:Patient Education Patient Instructions Indication:Nonsmoker Start:08-Apr-2021 Instruction Type:Provider Instructions for Treatment How to Access Health Informa tion Online using Patient Portal and [employer] Indication:Nonsmoker Start:08-Apr-2021 Instruction Type:Patient Education Patient Instructions Indication:BMI 23.0-23.9, adult Start:20-Mar-2021 Instruction Type:Provider Instructions for Treatment How to Access Health Informa tion Online using Patient Portal and [employer] Indication:BMI 23.0-23.9, adult Start:20-Mar-2021 Instruction Type:Patient Education Patient Instructions Indication:Nonsmoker Start:18-Mar-2021 Instruction Type:Provider Instructions for Treatment How to Access Health Informa tion Online using Patient Portal and [employer] Apps Indication:Nonsmoker Start:18-Mar-2021 Instruction Type:Patient Education Patient Instructions Indication:Nonsmoker Start:06-Feb-2021 Instruction Type:Provider Instructions for Treatment How to Access Health Informa tion Online using Patient Portal and [employer] Apps Indication:Nonsmoker Start:06-Feb-2021 Instruction Type:Patient Education Patient Instructions Indication:Nonsmoker Start:06-Oct-2020 Instruction Type:Provider Instructions for Treatment How to Access Health Informa tion Online using Patient Portal and [employer] Apps Indication:Nonsmoker Start:06-Oct-2020 Instruction Type:Patient Education Patient Instructions Indication:BMI 22.0-22.9, adult Start:29-Jul-2020 Instruction Type:Provider Instructions for Treatment How to Access Health Informa tion Online using Patient Portal and [employer] Apps Indication:Nonsmoker Start:29-Jul-2020 Instruction Type:Patient Education Patient Instructions Indication:Nonsmoker Start:15-Jul-2020 Instruction Type:Provider Instructions for Treatment How to Access Health Informa tion Online using Patient Portal and [employer] Apps Indication:Nonsmoker Start:15-Jul-2020 Instruction Type:Patient Education [facility]; [facility] Work Phone: Instructions* Name Dates Details Patient Instructions Indication:UTI symptoms Start:15-Sep-2021 Instruction Type:Provider Instructions for Treatment How to Access Health Informa tion Online using Patient Portal and [employer] Apps Indication:UTI symptoms Start:15-Sep-2021 Instruction Type:Patient Education Patient Instructions Indication:BMI 22.0-22.9, adult Start:27-Aug-2021 Instruction Type:Provider Instructions for Treatment How to Access Health Informa tion Online using Patient Portal and [employer] Indication:BMI 22.0-22.9, adult Start:27-Aug-2021 Instruction Type:Patient Education Patient Instructions Indication:Impaired fasting glucose Start:12-Aug-2021 Instruction Type:Provider Instructions for Treatment How to Access Health Informa tion Online using Patient Portal and [employer] Indication:Impaired fasting glucose Start:12-Aug-2021 Instruction Type:Patient Education Patient Instructions Indication:Splinter of foot Start:03-Jul-2021 Instruction Type:Provider Instructions for Treatment How to Access Health Informa tion Online using Patient Portal and [employer] Indication:Splinter of foot Start:03-Jul-2021 Instruction Type:Patient Education Patient Instructions Indication:BMI 23.0-23.9, adult Start:27-May-2021 Instruction Type:Provider Instructions for Treatment How to Access Health Informa tion Online using Patient Portal and [employer] Indication:BMI 23.0-23.9, adult Start:27-May-2021 Instruction Type:Patient Education Patient Instructions Indication:Nonsmoker Start:13-May-2021 Instruction Type:Provider Instructions for Treatment How to Access Health Informa tion Online using Patient Portal and [employer] Indication:Nonsmoker Start:13-May-2021 Instruction Type:Patient Education Patient Instructions Indication:Nonsmoker Start:06-May-2021 Instruction Type:Provider Instructions for Treatment How to Access Health Informa tion Online using Patient Portal and [employer] Apps Indication:Nonsmoker Start:06-May-2021 Instruction Type:Patient Education Patient Instructions Indication:Nonsmoker Start:08-Apr-2021 Instruction Type:Provider Instructions for Treatment How to Access Health Informa tion Online using Patient Portal and [employer] Apps Indication:Nonsmoker Start:08-Apr-2021 Instruction Type:Patient Education Patient Instructions Indication:BMI 23.0-23.9, adult Start:20-Mar-2021 Instruction Type:Provider Instructions for Treatment How to Access Health Informa tion Online using Patient Portal and [employer] Indication:BMI 23.0-23.9, adult Start:20-Mar-2021 Instruction Type:Patient Education Patient Instructions Indication:Nonsmoker Start:18-Mar-2021 Instruction Type:Provider Instructions for Treatment How to Access Health Informa tion Online using Patient Portal and [employer] Apps Indication:Nonsmoker Start:18-Mar-2021 Instruction Type:Patient Education Patient Instructions Indication:Nonsmoker Start:06-Feb-2021 Instruction Type:Provider Instructions for Treatment How to Access Health Informa tion Online using Patient Portal and [employer] Apps Indication:Nonsmoker Start:06-Feb-2021 Instruction Type:Patient Education Patient Instructions Indication:Nonsmoker Start:06-Oct-2020 Instruction Type:Provider Instructions for Treatment How to Access Health Informa tion Online using Patient Portal and [employer] Apps Indication:Nonsmoker Start:06-Oct-2020 Instruction Type:Patient Education Patient Instructions Indication:BMI 22.0-22.9, adult Start:29-Jul-2020 Instruction Type:Provider Instructions for Treatment How to Access Health Informa tion Online using Patient Portal and [employer] Apps Indication:Nonsmoker Start:29-Jul-2020 Instruction Type:Patient Education Patient Instructions Indication:Nonsmoker Start:15-Jul-2020 Instruction Type:Provider Instructions for Treatment How to Access Health Informa tion Online using Patient Portal and [employer] Indication:Nonsmoker Start:15-Jul-2020 Instruction Type:Patient Education [facility]; [facility] Work Phone: Instructions* Name Dates Details Patient Instructions Indication:BMI 23.0-23.9, adult Start:30-Sep-2021 Instruction Type:Provider Instructions for Treatment How to Access Health Informa tion Online using Patient Portal and [employer] Indication:BMI 23.0-23.9, adult Start:30-Sep-2021 Instruction Type:Patient Education Patient Instructions Indication:UTI symptoms Start:15-Sep-2021 Instruction Type:Provider Instructions for Treatment How to Access Health Informa tion Online using Patient Portal and [employer] Indication:UTI symptoms Start:15-Sep-2021 Instruction Type:Patient Education Patient Instructions Indication:BMI 22.0-22.9, adult Start:27-Aug-2021 Instruction Type:Provider Instructions for Treatment How to Access Health Informa tion Online using Patient Portal and [employer] Indication:BMI 22.0-22.9, adult Start:27-Aug-2021 Instruction Type:Patient Education Patient Instructions Indication:Impaired fasting glucose Start:12-Aug-2021 Instruction Type:Provider Instructions for Treatment How to Access Health Informa tion Online using Patient Portal and [employer] Apps Indication:Impaired fasting glucose Start:12-Aug-2021 Instruction Type:Patient Education Patient Instructions Indication:Splinter of foot Start:03-Jul-2021 Instruction Type:Provider Instructions for Treatment How to Access Health Informa tion Online using Patient Portal and [employer] Indication:Splinter of foot Start:03-Jul-2021 Instruction Type:Patient Education Patient Instructions Indication:BMI 23.0-23.9, adult Start:27-May-2021 Instruction Type:Provider Instructions for Treatment How to Access Health Informa tion Online using Patient Portal and [employer] Indication:BMI 23.0-23.9, adult Start:27-May-2021 Instruction Type:Patient Education Patient Instructions Indication:Nonsmoker Start:13-May-2021 Instruction Type:Provider Instructions for Treatment How to Access Health Informa tion Online using Patient Portal and [employer] Indication:Nonsmoker Start:13-May-2021 Instruction Type:Patient Education Patient Instructions Indication:Nonsmoker Start:06-May-2021 Instruction Type:Provider Instructions for Treatment How to Access Health Informa tion Online using Patient Portal and [employer] Indication:Nonsmoker Start:06-May-2021 Instruction Type:Patient Education Patient Instructions Indication:Nonsmoker Start:08-Apr-2021 Instruction Type:Provider Instructions for Treatment How to Access Health Informa tion Online using Patient Portal and [employer] Indication:Nonsmoker Start:08-Apr-2021 Instruction Type:Patient Education Patient Instructions Indication:BMI 23.0-23.9, adult Start:20-Mar-2021 Instruction Type:Provider Instructions for Treatment How to Access Health Informa tion Online using Patient Portal and [employer] Indication:BMI 23.0-23.9, adult Start:20-Mar-2021 Instruction Type:Patient Education Patient Instructions Indication:Nonsmoker Start:18-Mar-2021 Instruction Type:Provider Instructions for Treatment How to Access Health Informa tion Online using Patient Portal and [employer] Apps Indication:Nonsmoker Start:18-Mar-2021 Instruction Type:Patient Education Patient Instructions Indication:Nonsmoker Start:06-Feb-2021 Instruction Type:Provider Instructions for Treatment How to Access Health Informa tion Online using Patient Portal and [employer] Apps Indication:Nonsmoker Start:06-Feb-2021 Instruction Type:Patient Education Patient Instructions Indication:Nonsmoker Start:06-Oct-2020 Instruction Type:Provider Instructions for Treatment How to Access Health Informa tion Online using Patient Portal and [employer] Apps Indication:Nonsmoker Start:06-Oct-2020 Instruction Type:Patient Education Patient Instructions Indication:BMI 22.0-22.9, adult Start:29-Jul-2020 Instruction Type:Provider Instructions for Treatment How to Access Health Informa tion Online using Patient Portal and [employer] Apps Indication:Nonsmoker Start:29-Jul-2020 Instruction Type:Patient Education Patient Instructions Indication:Nonsmoker Start:15-Jul-2020 Instruction Type:Provider Instructions for Treatment How to Access Health Informa tion Online using Patient Portal and [employer] Indication:Nonsmoker Start:15-Jul-2020 Instruction Type:Patient Education [facility]; [facility] Work Phone: Instructions* Name Dates Details Patient Instructions Indication:BMI 23.0-23.9, adult Start:30-Sep-2021 Instruction Type:Provider Instructions for Treatment How to Access Health Informa tion Online using Patient Portal and [employer] Apps Indication:BMI 23.0-23.9, adult Start:30-Sep-2021 Instruction Type:Patient Education Patient Instructions Indication:UTI symptoms Start:15-Sep-2021 Instruction Type:Provider Instructions for Treatment How to Access Health Informa tion Online using Patient Portal and [employer] Apps Indication:UTI symptoms Start:15-Sep-2021 Instruction Type:Patient Education Patient Instructions Indication:BMI 22.0-22.9, adult Start:27-Aug-2021 Instruction Type:Provider Instructions for Treatment How to Access Health Informa tion Online using Patient Portal and [employer] Apps Indication:BMI 22.0-22.9, adult Start:27-Aug-2021 Instruction Type:Patient Education Patient Instructions Indication:Impaired fasting glucose Start:12-Aug-2021 Instruction Type:Provider Instructions for Treatment How to Access Health Informa tion Online using Patient Portal and [employer] Apps Indication:Impaired fasting glucose Start:12-Aug-2021 Instruction Type:Patient Education Patient Instructions Indication:Splinter of foot Start:03-Jul-2021 Instruction Type:Provider Instructions for Treatment How to Access Health Informa tion Online using Patient Portal and [employer] Indication:Splinter of foot Start:03-Jul-2021 Instruction Type:Patient Education Patient Instructions Indication:BMI 23.0-23.9, adult Start:27-May-2021 Instruction Type:Provider Instructions for Treatment How to Access Health Informa tion Online using Patient Portal and [employer] Indication:BMI 23.0-23.9, adult Start:27-May-2021 Instruction Type:Patient Education Patient Instructions Indication:Nonsmoker Start:13-May-2021 Instruction Type:Provider Instructions for Treatment How to Access Health Informa tion Online using Patient Portal and [employer] Apps Indication:Nonsmoker Start:13-May-2021 Instruction Type:Patient Education Patient Instructions Indication:Nonsmoker Start:06-May-2021 Instruction Type:Provider Instructions for Treatment How to Access Health Informa tion Online using Patient Portal and [employer] Indication:Nonsmoker Start:06-May-2021 Instruction Type:Patient Education Patient Instructions Indication:Nonsmoker Start:08-Apr-2021 Instruction Type:Provider Instructions for Treatment How to Access Health Informa tion Online using Patient Portal and [employer] Indication:Nonsmoker Start:08-Apr-2021 Instruction Type:Patient Education Patient Instructions Indication:BMI 23.0-23.9, adult Start:20-Mar-2021 Instruction Type:Provider Instructions for Treatment How to Access Health Informa tion Online using Patient Portal and [employer] Indication:BMI 23.0-23.9, adult Start:20-Mar-2021 Instruction Type:Patient Education Patient Instructions Indication:Nonsmoker Start:18-Mar-2021 Instruction Type:Provider Instructions for Treatment How to Access Health Informa tion Online using Patient Portal and [employer] Indication:Nonsmoker Start:18-Mar-2021 Instruction Type:Patient Education Patient Instructions Indication:Nonsmoker Start:06-Feb-2021 Instruction Type:Provider Instructions for Treatment How to Access Health Informa tion Online using Patient Portal and [employer] Indication:Nonsmoker Start:06-Feb-2021 Instruction Type:Patient Education Patient Instructions Indication:Nonsmoker Start:06-Oct-2020 Instruction Type:Provider Instructions for Treatment How to Access Health Informa tion Online using Patient Portal and [employer] Indication:Nonsmoker Start:06-Oct-2020 Instruction Type:Patient Education Patient Instructions Indication:BMI 22.0-22.9, adult Start:29-Jul-2020 Instruction Type:Provider Instructions for Treatment How to Access Health Informa tion Online using Patient Portal and [employer] Indication:Nonsmoker Start:29-Jul-2020 Instruction Type:Patient Education Patient Instructions Indication:Nonsmoker Start:15-Jul-2020 Instruction Type:Provider Instructions for Treatment How to Access Health Informa tion Online using Patient Portal and [employer] Indication:Nonsmoker Start:15-Jul-2020 Instruction Type:Patient Education [facility]; [facility] Work Phone: Instructions* Name Dates Details Patient Instructions Indication:BMI 23.0-23.9, adult Start:30-Sep-2021 Instruction Type:Provider Instructions for Treatment How to Access Health Informa tion Online using Patient Portal and [employer] Indication:BMI 23.0-23.9, adult Start:30-Sep-2021 Instruction Type:Patient Education Patient Instructions Indication:UTI symptoms Start:15-Sep-2021 Instruction Type:Provider Instructions for Treatment How to Access Health Informa tion Online using Patient Portal and [employer] Indication:UTI symptoms Start:15-Sep-2021 Instruction Type:Patient Education Patient Instructions Indication:BMI 22.0-22.9, adult Start:27-Aug-2021 Instruction Type:Provider Instructions for Treatment How to Access Health Informa tion Online using Patient Portal and [employer] Indication:BMI 22.0-22.9, adult Start:27-Aug-2021 Instruction Type:Patient Education Patient Instructions Indication:Impaired fasting glucose Start:12-Aug-2021 Instruction Type:Provider Instructions for Treatment How to Access Health Informa tion Online using Patient Portal and [employer] Indication:Impaired fasting glucose Start:12-Aug-2021 Instruction Type:Patient Education Patient Instructions Indication:Splinter of foot Start:03-Jul-2021 Instruction Type:Provider Instructions for Treatment How to Access Health Informa tion Online using Patient Portal and [employer] Indication:Splinter of foot Start:03-Jul-2021 Instruction Type:Patient Education Patient Instructions Indication:BMI 23.0-23.9, adult Start:27-May-2021 Instruction Type:Provider Instructions for Treatment How to Access Health Informa tion Online using Patient Portal and [employer] Indication:BMI 23.0-23.9, adult Start:27-May-2021 Instruction Type:Patient Education Patient Instructions Indication:Nonsmoker Start:13-May-2021 Instruction Type:Provider Instructions for Treatment How to Access Health Informa tion Online using Patient Portal and [employer] Indication:Nonsmoker Start:13-May-2021 Instruction Type:Patient Education Patient Instructions Indication:Nonsmoker Start:06-May-2021 Instruction Type:Provider Instructions for Treatment How to Access Health Informa tion Online using Patient Portal and [employer] Indication:Nonsmoker Start:06-May-2021 Instruction Type:Patient Education Patient Instructions Indication:Nonsmoker Start:08-Apr-2021 Instruction Type:Provider Instructions for Treatment How to Access Health Informa tion Online using Patient Portal and [employer] Indication:Nonsmoker Start:08-Apr-2021 Instruction Type:Patient Education Patient Instructions Indication:BMI 23.0-23.9, adult Start:20-Mar-2021 Instruction Type:Provider Instructions for Treatment How to Access Health Informa tion Online using Patient Portal and [employer] Indication:BMI 23.0-23.9, adult Start:20-Mar-2021 Instruction Type:Patient Education Patient Instructions Indication:Nonsmoker Start:18-Mar-2021 Instruction Type:Provider Instructions for Treatment How to Access Health Informa tion Online using Patient Portal and [employer] Indication:Nonsmoker Start:18-Mar-2021 Instruction Type:Patient Education Patient Instructions Indication:Nonsmoker Start:06-Feb-2021 Instruction Type:Provider Instructions for Treatment How to Access Health Informa tion Online using Patient Portal and [employer] Indication:Nonsmoker Start:06-Feb-2021 Instruction Type:Patient Education Patient Instructions Indication:Nonsmoker Start:06-Oct-2020 Instruction Type:Provider Instructions for Treatment How to Access Health Informa tion Online using Patient Portal and [employer] Indication:Nonsmoker Start:06-Oct-2020 Instruction Type:Patient Education Patient Instructions Indication:BMI 22.0-22.9, adult Start:29-Jul-2020 Instruction Type:Provider Instructions for Treatment How to Access Health Informa tion Online using Patient Portal and [employer] Indication:Nonsmoker Start:29-Jul-2020 Instruction Type:Patient Education Patient Instructions Indication:Nonsmoker Start:15-Jul-2020 Instruction Type:Provider Instructions for Treatment How to Access Health Informa tion Online using Patient Portal and [employer] Indication:Nonsmoker Start:15-Jul-2020 Instruction Type:Patient Education [facility]; [facility] Work Phone: Instructions* Name Dates Details Patient Instructions Indication:Nonsmoker Start:13-Nov-2021 Instruction Type:Provider Instructions for Treatment How to Access Health Informa tion Online using Patient Portal and [employer] Indication:Nonsmoker Start:13-Nov-2021 Instruction Type:Patient Education Patient Instructions Indication:BMI 23.0-23.9, adult Start:19-Oct-2021 Instruction Type:Provider Instructions for Treatment How to Access Health Informa tion Online using Patient Portal and [employer] Indication:BMI 23.0-23.9, adult Start:19-Oct-2021 Instruction Type:Patient Education Patient Instructions Indication:BMI 23.0-23.9, adult Start:30-Sep-2021 Instruction Type:Provider Instructions for Treatment How to Access Health Informa tion Online using Patient Portal and [employer] Indication:BMI 23.0-23.9, adult Start:30-Sep-2021 Instruction Type:Patient Education Patient Instructions Indication:UTI symptoms Start:15-Sep-2021 Instruction Type:Provider Instructions for Treatment How to Access Health Informa tion Online using Patient Portal and [employer] Indication:UTI symptoms Start:15-Sep-2021 Instruction Type:Patient Education Patient Instructions Indication:BMI 22.0-22.9, adult Start:27-Aug-2021 Instruction Type:Provider Instructions for Treatment How to Access Health Informa tion Online using Patient Portal and [employer] Indication:BMI 22.0-22.9, adult Start:27-Aug-2021 Instruction Type:Patient Education Patient Instructions Indication:Impaired fasting glucose Start:12-Aug-2021 Instruction Type:Provider Instructions for Treatment How to Access Health Informa tion Online using Patient Portal and [employer] Indication:Impaired fasting glucose Start:12-Aug-2021 Instruction Type:Patient Education Patient Instructions Indication:Splinter of foot Start:03-Jul-2021 Instruction Type:Provider Instructions for Treatment How to Access Health Informa tion Online using Patient Portal and [employer] Indication:Splinter of foot Start:03-Jul-2021 Instruction Type:Patient Education Patient Instructions Indication:BMI 23.0-23.9, adult Start:27-May-2021 Instruction Type:Provider Instructions for Treatment How to Access Health Informa tion Online using Patient Portal and [employer] Indication:BMI 23.0-23.9, adult Start:27-May-2021 Instruction Type:Patient Education Patient Instructions Indication:Nonsmoker Start:13-May-2021 Instruction Type:Provider Instructions for Treatment How to Access Health Informa tion Online using Patient Portal and [employer] Indication:Nonsmoker Start:13-May-2021 Instruction Type:Patient Education Patient Instructions Indication:Nonsmoker Start:06-May-2021 Instruction Type:Provider Instructions for Treatment How to Access Health Informa tion Online using Patient Portal and [employer] Indication:Nonsmoker Start:06-May-2021 Instruction Type:Patient Education Patient Instructions Indication:Nonsmoker Start:08-Apr-2021 Instruction Type:Provider Instructions for Treatment How to Access Health Informa tion Online using Patient Portal and [employer] Indication:Nonsmoker Start:08-Apr-2021 Instruction Type:Patient Education Patient Instructions Indication:BMI 23.0-23.9, adult Start:20-Mar-2021 Instruction Type:Provider Instructions for Treatment How to Access Health Informa tion Online using Patient Portal and [employer] Indication:BMI 23.0-23.9, adult Start:20-Mar-2021 Instruction Type:Patient Education Patient Instructions Indication:Nonsmoker Start:18-Mar-2021 Instruction Type:Provider Instructions for Treatment How to Access Health Informa tion Online using Patient Portal and [employer] Indication:Nonsmoker Start:18-Mar-2021 Instruction Type:Patient Education Patient Instructions Indication:Nonsmoker Start:06-Feb-2021 Instruction Type:Provider Instructions for Treatment How to Access Health Informa tion Online using Patient Portal and [employer] Indication:Nonsmoker Start:06-Feb-2021 Instruction Type:Patient Education Patient Instructions Indication:Nonsmoker Start:06-Oct-2020 Instruction Type:Provider Instructions for Treatment How to Access Health Informa tion Online using Patient Portal and [employer] Indication:Nonsmoker Start:06-Oct-2020 Instruction Type:Patient Education Patient Instructions Indication:BMI 22.0-22.9, adult Start:29-Jul-2020 Instruction Type:Provider Instructions for Treatment How to Access Health Informa tion Online using Patient Portal and [employer] Indication:Nonsmoker Start:29-Jul-2020 Instruction Type:Patient Education Patient Instructions Indication:Nonsmoker Start:15-Jul-2020 Instruction Type:Provider Instructions for Treatment How to Access Health Informa tion Online using Patient Portal and [employer] Indication:Nonsmoker Start:15-Jul-2020 Instruction Type:Patient Education [facility]; [facility] Work Phone: [phone]* Name Dates Details Patient Instructions Indication:Nonsmoker Start:13-Nov-2021 Instruction Type:Provider Instructions for Treatment How to Access Health Informa tion Online using Patient Portal and [employer] Apps Indication:Nonsmoker Start:13-Nov-2021 Instruction Type:Patient Education Patient Instructions Indication:BMI 23.0-23.9, adult Start:19-Oct-2021 Instruction Type:Provider Instructions for Treatment How to Access Health Informa tion Online using Patient Portal and [employer] Apps Indication:BMI 23.0-23.9, adult Start:19-Oct-2021 Instruction Type:Patient Education Patient Instructions Indication:BMI 23.0-23.9, adult Start:30-Sep-2021 Instruction Type:Provider Instructions for Treatment How to Access Health Informa tion Online using Patient Portal and [employer] Apps Indication:BMI 23.0-23.9, adult Start:30-Sep-2021 Instruction Type:Patient Education Patient Instructions Indication:UTI symptoms Start:15-Sep-2021 Instruction Type:Provider Instructions for Treatment How to Access Health Informa tion Online using Patient Portal and [employer] Apps Indication:UTI symptoms Start:15-Sep-2021 Instruction Type:Patient Education Patient Instructions Indication:BMI 22.0-22.9, adult Start:27-Aug-2021 Instruction Type:Provider Instructions for Treatment How to Access Health Informa tion Online using Patient Portal and [employer] Apps Indication:BMI 22.0-22.9, adult Start:27-Aug-2021 Instruction Type:Patient Education Patient Instructions Indication:Impaired fasting glucose Start:12-Aug-2021 Instruction Type:Provider Instructions for Treatment How to Access Health Informa tion Online using Patient Portal and [employer] Apps Indication:Impaired fasting glucose Start:12-Aug-2021 Instruction Type:Patient Education Patient Instructions Indication:Splinter of foot Start:03-Jul-2021 Instruction Type:Provider Instructions for Treatment How to Access Health Informa tion Online using Patient Portal and [employer] Apps Indication:Splinter of foot Start:03-Jul-2021 Instruction Type:Patient Education Patient Instructions Indication:BMI 23.0-23.9, adult Start:27-May-2021 Instruction Type:Provider Instructions for Treatment How to Access Health Informa tion Online using Patient Portal and [employer] Apps Indication:BMI 23.0-23.9, adult Start:27-May-2021 Instruction Type:Patient Education Patient Instructions Indication:Nonsmoker Start:13-May-2021 Instruction Type:Provider Instructions for Treatment How to Access Health Informa tion Online using Patient Portal and [employer] Apps Indication:Nonsmoker Start:13-May-2021 Instruction Type:Patient Education Patient Instructions Indication:Nonsmoker Start:06-May-2021 Instruction Type:Provider Instructions for Treatment How to Access Health Informa tion Online using Patient Portal and [employer] Indication:Nonsmoker Start:06-May-2021 Instruction Type:Patient Education Patient Instructions Indication:Nonsmoker Start:08-Apr-2021 Instruction Type:Provider Instructions for Treatment How to Access Health Informa tion Online using Patient Portal and [employer] Indication:Nonsmoker Start:08-Apr-2021 Instruction Type:Patient Education Patient Instructions Indication:BMI 23.0-23.9, adult Start:20-Mar-2021 Instruction Type:Provider Instructions for Treatment How to Access Health Informa tion Online using Patient Portal and [employer] Indication:BMI 23.0-23.9, adult Start:20-Mar-2021 Instruction Type:Patient Education Patient Instructions Indication:Nonsmoker Start:18-Mar-2021 Instruction Type:Provider Instructions for Treatment How to Access Health Informa tion Online using Patient Portal and [employer] Indication:Nonsmoker Start:18-Mar-2021 Instruction Type:Patient Education Patient Instructions Indication:Nonsmoker Start:06-Feb-2021 Instruction Type:Provider Instructions for Treatment How to Access Health Informa tion Online using Patient Portal and [employer] Indication:Nonsmoker Start:06-Feb-2021 Instruction Type:Patient Education Patient Instructions Indication:Nonsmoker Start:06-Oct-2020 Instruction Type:Provider Instructions for Treatment How to Access Health Informa tion Online using Patient Portal and [employer] Indication:Nonsmoker Start:06-Oct-2020 Instruction Type:Patient Education Patient Instructions Indication:BMI 22.0-22.9, adult Start:29-Jul-2020 Instruction Type:Provider Instructions for Treatment How to Access Health Informa tion Online using Patient Portal and [employer] Indication:Nonsmoker Start:29-Jul-2020 Instruction Type:Patient Education Patient Instructions Indication:Nonsmoker Start:15-Jul-2020 Instruction Type:Provider Instructions for Treatment How to Access Health Informa tion Online using Patient Portal and [employer] Indication:Nonsmoker Start:15-Jul-2020 Instruction Type:Patient Education [facility]; [facility] Work Phone: Instructions* Name Dates Details Patient Instructions Indication:BMI 23.0-23.9, adult Start:14-Dec-2021 Instruction Type:Provider Instructions for Treatment How to Access Health Informa tion Online using Patient Portal and [employer] Indication:BMI 23.0-23.9, adult Start:14-Dec-2021 Instruction Type:Patient Education Patient Instructions Indication:Nonsmoker Start:13-Nov-2021 Instruction Type:Provider Instructions for Treatment How to Access Health Informa tion Online using Patient Portal and [employer] Indication:Nonsmoker Start:13-Nov-2021 Instruction Type:Patient Education Patient Instructions Indication:BMI 23.0-23.9, adult Start:19-Oct-2021 Instruction Type:Provider Instructions for Treatment How to Access Health Informa tion Online using Patient Portal and [employer] Indication:BMI 23.0-23.9, adult Start:19-Oct-2021 Instruction Type:Patient Education Patient Instructions Indication:BMI 23.0-23.9, adult Start:30-Sep-2021 Instruction Type:Provider Instructions for Treatment How to Access Health Informa tion Online using Patient Portal and [employer] Indication:BMI 23.0-23.9, adult Start:30-Sep-2021 Instruction Type:Patient Education Patient Instructions Indication:UTI symptoms Start:15-Sep-2021 Instruction Type:Provider Instructions for Treatment How to Access Health Informa tion Online using Patient Portal and [employer] Indication:UTI symptoms Start:15-Sep-2021 Instruction Type:Patient Education Patient Instructions Indication:BMI 22.0-22.9, adult Start:27-Aug-2021 Instruction Type:Provider Instructions for Treatment How to Access Health Informa tion Online using Patient Portal and [employer] Indication:BMI 22.0-22.9, adult Start:27-Aug-2021 Instruction Type:Patient Education Patient Instructions Indication:Impaired fasting glucose Start:12-Aug-2021 Instruction Type:Provider Instructions for Treatment How to Access Health Informa tion Online using Patient Portal and [employer] Indication:Impaired fasting glucose Start:12-Aug-2021 Instruction Type:Patient Education Patient Instructions Indication:Splinter of foot Start:03-Jul-2021 Instruction Type:Provider Instructions for Treatment How to Access Health Informa tion Online using Patient Portal and [employer] Indication:Splinter of foot Start:03-Jul-2021 Instruction Type:Patient Education Patient Instructions Indication:BMI 23.0-23.9, adult Start:27-May-2021 Instruction Type:Provider Instructions for Treatment How to Access Health Informa tion Online using Patient Portal and [employer] Indication:BMI 23.0-23.9, adult Start:27-May-2021 Instruction Type:Patient Education Patient Instructions Indication:Nonsmoker Start:13-May-2021 Instruction Type:Provider Instructions for Treatment How to Access Health Informa tion Online using Patient Portal and [employer] Indication:Nonsmoker Start:13-May-2021 Instruction Type:Patient Education Patient Instructions Indication:Nonsmoker Start:06-May-2021 Instruction Type:Provider Instructions for Treatment How to Access Health Informa tion Online using Patient Portal and [employer] Indication:Nonsmoker Start:06-May-2021 Instruction Type:Patient Education Patient Instructions Indication:Nonsmoker Start:08-Apr-2021 Instruction Type:Provider Instructions for Treatment How to Access Health Informa tion Online using Patient Portal and [employer] Apps Indication:Nonsmoker Start:08-Apr-2021 Instruction Type:Patient Education Patient Instructions Indication:BMI 23.0-23.9, adult Start:20-Mar-2021 Instruction Type:Provider Instructions for Treatment How to Access Health Informa tion Online using Patient Portal and [employer] Indication:BMI 23.0-23.9, adult Start:20-Mar-2021 Instruction Type:Patient Education Patient Instructions Indication:Nonsmoker Start:18-Mar-2021 Instruction Type:Provider Instructions for Treatment How to Access Health Informa tion Online using Patient Portal and [employer] Indication:Nonsmoker Start:18-Mar-2021 Instruction Type:Patient Education Patient Instructions Indication:Nonsmoker Start:06-Feb-2021 Instruction Type:Provider Instructions for Treatment How to Access Health Informa tion Online using Patient Portal and [employer] Indication:Nonsmoker Start:06-Feb-2021 Instruction Type:Patient Education Patient Instructions Indication:Nonsmoker Start:06-Oct-2020 Instruction Type:Provider Instructions for Treatment How to Access Health Informa tion Online using Patient Portal and [employer] Indication:Nonsmoker Start:06-Oct-2020 Instruction Type:Patient Education Patient Instructions Indication:BMI 22.0-22.9, adult Start:29-Jul-2020 Instruction Type:Provider Instructions for Treatment How to Access Health Informa tion Online using Patient Portal and [employer] Indication:Nonsmoker Start:29-Jul-2020 Instruction Type:Patient Education Patient Instructions Indication:Nonsmoker Start:15-Jul-2020 Instruction Type:Provider Instructions for Treatment How to Access Health Informa tion Online using Patient Portal and [employer] Indication:Nonsmoker Start:15-Jul-2020 Instruction Type:Patient Education [facility]; [facility] Work Phone: Instructions* Name Dates Details Patient Instructions Indication:BMI 23.0-23.9, adult Start:14-Dec-2021 Instruction Type:Provider Instructions for Treatment How to Access Health Informa tion Online using Patient Portal and [employer] Indication:BMI 23.0-23.9, adult Start:14-Dec-2021 Instruction Type:Patient Education Patient Instructions Indication:Nonsmoker Start:13-Nov-2021 Instruction Type:Provider Instructions for Treatment How to Access Health Informa tion Online using Patient Portal and [employer] Indication:Nonsmoker Start:13-Nov-2021 Instruction Type:Patient Education Patient Instructions Indication:BMI 23.0-23.9, adult Start:19-Oct-2021 Instruction Type:Provider Instructions for Treatment How to Access Health Informa tion Online using Patient Portal and [employer] Indication:BMI 23.0-23.9, adult Start:19-Oct-2021 Instruction Type:Patient Education Patient Instructions Indication:BMI 23.0-23.9, adult Start:30-Sep-2021 Instruction Type:Provider Instructions for Treatment How to Access Health Informa tion Online using Patient Portal and [employer] Indication:BMI 23.0-23.9, adult Start:30-Sep-2021 Instruction Type:Patient Education Patient Instructions Indication:UTI symptoms Start:15-Sep-2021 Instruction Type:Provider Instructions for Treatment How to Access Health Informa tion Online using Patient Portal and [employer] Indication:UTI symptoms Start:15-Sep-2021 Instruction Type:Patient Education Patient Instructions Indication:BMI 22.0-22.9, adult Start:27-Aug-2021 Instruction Type:Provider Instructions for Treatment How to Access Health Informa tion Online using Patient Portal and [employer] Indication:BMI 22.0-22.9, adult Start:27-Aug-2021 Instruction Type:Patient Education Patient Instructions Indication:Impaired fasting glucose Start:12-Aug-2021 Instruction Type:Provider Instructions for Treatment How to Access Health Informa tion Online using Patient Portal and [employer] Indication:Impaired fasting glucose Start:12-Aug-2021 Instruction Type:Patient Education Patient Instructions Indication:Splinter of foot Start:03-Jul-2021 Instruction Type:Provider Instructions for Treatment How to Access Health Informa tion Online using Patient Portal and [employer] Indication:Splinter of foot Start:03-Jul-2021 Instruction Type:Patient Education Patient Instructions Indication:BMI 23.0-23.9, adult Start:27-May-2021 Instruction Type:Provider Instructions for Treatment How to Access Health Informa tion Online using Patient Portal and [employer] Indication:BMI 23.0-23.9, adult Start:27-May-2021 Instruction Type:Patient Education Patient Instructions Indication:Nonsmoker Start:13-May-2021 Instruction Type:Provider Instructions for Treatment How to Access Health Informa tion Online using Patient Portal and [employer] Indication:Nonsmoker Start:13-May-2021 Instruction Type:Patient Education Patient Instructions Indication:Nonsmoker Start:06-May-2021 Instruction Type:Provider Instructions for Treatment How to Access Health Informa tion Online using Patient Portal and [employer] Indication:Nonsmoker Start:06-May-2021 Instruction Type:Patient Education Patient Instructions Indication:Nonsmoker Start:08-Apr-2021 Instruction Type:Provider Instructions for Treatment How to Access Health Informa tion Online using Patient Portal and [employer] Indication:Nonsmoker Start:08-Apr-2021 Instruction Type:Patient Education Patient Instructions Indication:BMI 23.0-23.9, adult Start:20-Mar-2021 Instruction Type:Provider Instructions for Treatment How to Access Health Informa tion Online using Patient Portal and [employer] Indication:BMI 23.0-23.9, adult Start:20-Mar-2021 Instruction Type:Patient Education Patient Instructions Indication:Nonsmoker Start:18-Mar-2021 Instruction Type:Provider Instructions for Treatment How to Access Health Informa tion Online using Patient Portal and [employer] Indication:Nonsmoker Start:18-Mar-2021 Instruction Type:Patient Education Patient Instructions Indication:Nonsmoker Start:06-Feb-2021 Instruction Type:Provider Instructions for Treatment How to Access Health Informa tion Online using Patient Portal and [employer] Indication:Nonsmoker Start:06-Feb-2021 Instruction Type:Patient Education Patient Instructions Indication:Nonsmoker Start:06-Oct-2020 Instruction Type:Provider Instructions for Treatment How to Access Health Informa tion Online using Patient Portal and [employer] Indication:Nonsmoker Start:06-Oct-2020 Instruction Type:Patient Education Patient Instructions Indication:BMI 22.0-22.9, adult Start:29-Jul-2020 Instruction Type:Provider Instructions for Treatment How to Access Health Informa tion Online using Patient Portal and [employer] Indication:Nonsmoker Start:29-Jul-2020 Instruction Type:Patient Education Patient Instructions Indication:Nonsmoker Start:15-Jul-2020 Instruction Type:Provider Instructions for Treatment How to Access Health Informa tion Online using Patient Portal and [employer] Indication:Nonsmoker Start:15-Jul-2020 Instruction Type:Patient Education [facility]; [facility] Work Phone: Instructions* Name Dates Details Patient Instructions Indication:BMI 23.0-23.9, adult Start:14-Dec-2021 Instruction Type:Provider Instructions for Treatment How to Access Health Informa tion Online using Patient Portal and [employer] Indication:BMI 23.0-23.9, adult Start:14-Dec-2021 Instruction Type:Patient Education Patient Instructions Indication:Nonsmoker Start:13-Nov-2021 Instruction Type:Provider Instructions for Treatment How to Access Health Informa tion Online using Patient Portal and [employer] Indication:Nonsmoker Start:13-Nov-2021 Instruction Type:Patient Education Patient Instructions Indication:BMI 23.0-23.9, adult Start:19-Oct-2021 Instruction Type:Provider Instructions for Treatment How to Access Health Informa tion Online using Patient Portal and [employer] Indication:BMI 23.0-23.9, adult Start:19-Oct-2021 Instruction Type:Patient Education Patient Instructions Indication:BMI 23.0-23.9, adult Start:30-Sep-2021 Instruction Type:Provider Instructions for Treatment How to Access Health Informa tion Online using Patient Portal and [employer] Indication:BMI 23.0-23.9, adult Start:30-Sep-2021 Instruction Type:Patient Education Patient Instructions Indication:UTI symptoms Start:15-Sep-2021 Instruction Type:Provider Instructions for Treatment How to Access Health Informa tion Online using Patient Portal and [employer] Indication:UTI symptoms Start:15-Sep-2021 Instruction Type:Patient Education Patient Instructions Indication:BMI 22.0-22.9, adult Start:27-Aug-2021 Instruction Type:Provider Instructions for Treatment How to Access Health Informa tion Online using Patient Portal and [employer] Indication:BMI 22.0-22.9, adult Start:27-Aug-2021 Instruction Type:Patient Education Patient Instructions Indication:Impaired fasting glucose Start:12-Aug-2021 Instruction Type:Provider Instructions for Treatment How to Access Health Informa tion Online using Patient Portal and [employer] Indication:Impaired fasting glucose Start:12-Aug-2021 Instruction Type:Patient Education Patient Instructions Indication:Splinter of foot Start:03-Jul-2021 Instruction Type:Provider Instructions for Treatment How to Access Health Informa tion Online using Patient Portal and [employer] Apps Indication:Splinter of foot Start:03-Jul-2021 Instruction Type:Patient Education Patient Instructions Indication:BMI 23.0-23.9, adult Start:27-May-2021 Instruction Type:Provider Instructions for Treatment How to Access Health Informa tion Online using Patient Portal and [employer] Indication:BMI 23.0-23.9, adult Start:27-May-2021 Instruction Type:Patient Education Patient Instructions Indication:Nonsmoker Start:13-May-2021 Instruction Type:Provider Instructions for Treatment How to Access Health Informa tion Online using Patient Portal and [employer] Indication:Nonsmoker Start:13-May-2021 Instruction Type:Patient Education Patient Instructions Indication:Nonsmoker Start:06-May-2021 Instruction Type:Provider Instructions for Treatment How to Access Health Informa tion Online using Patient Portal and [employer] Indication:Nonsmoker Start:06-May-2021 Instruction Type:Patient Education Patient Instructions Indication:Nonsmoker Start:08-Apr-2021 Instruction Type:Provider Instructions for Treatment How to Access Health Informa tion Online using Patient Portal and [employer] Indication:Nonsmoker Start:08-Apr-2021 Instruction Type:Patient Education Patient Instructions Indication:BMI 23.0-23.9, adult Start:20-Mar-2021 Instruction Type:Provider Instructions for Treatment How to Access Health Informa tion Online using Patient Portal and [employer] Indication:BMI 23.0-23.9, adult Start:20-Mar-2021 Instruction Type:Patient Education Patient Instructions Indication:Nonsmoker Start:18-Mar-2021 Instruction Type:Provider Instructions for Treatment How to Access Health Informa tion Online using Patient Portal and [employer] Indication:Nonsmoker Start:18-Mar-2021 Instruction Type:Patient Education Patient Instructions Indication:Nonsmoker Start:06-Feb-2021 Instruction Type:Provider Instructions for Treatment How to Access Health Informa tion Online using Patient Portal and [employer] Indication:Nonsmoker Start:06-Feb-2021 Instruction Type:Patient Education Patient Instructions Indication:Nonsmoker Start:06-Oct-2020 Instruction Type:Provider Instructions for Treatment How to Access Health Informa tion Online using Patient Portal and [employer] Indication:Nonsmoker Start:06-Oct-2020 Instruction Type:Patient Education Patient Instructions Indication:BMI 22.0-22.9, adult Start:29-Jul-2020 Instruction Type:Provider Instructions for Treatment How to Access Health Informa tion Online using Patient Portal and [employer] Indication:Nonsmoker Start:29-Jul-2020 Instruction Type:Patient Education Patient Instructions Indication:Nonsmoker Start:15-Jul-2020 Instruction Type:Provider Instructions for Treatment How to Access Health Informa tion Online using Patient Portal and [employer] Indication:Nonsmoker Start:15-Jul-2020 Instruction Type:Patient Education [facility]; [facility] Work Phone: Instructions* Name Dates Details Patient Instructions Indication:BMI 23.0-23.9, adult Start:14-Dec-2021 Instruction Type:Provider Instructions for Treatment How to Access Health Informa tion Online using Patient Portal and [employer] Indication:BMI 23.0-23.9, adult Start:14-Dec-2021 Instruction Type:Patient Education Patient Instructions Indication:Nonsmoker Start:13-Nov-2021 Instruction Type:Provider Instructions for Treatment How to Access Health Informa tion Online using Patient Portal and [employer] Indication:Nonsmoker Start:13-Nov-2021 Instruction Type:Patient Education Patient Instructions Indication:BMI 23.0-23.9, adult Start:19-Oct-2021 Instruction Type:Provider Instructions for Treatment How to Access Health Informa tion Online using Patient Portal and [employer] Indication:BMI 23.0-23.9, adult Start:19-Oct-2021 Instruction Type:Patient Education Patient Instructions Indication:BMI 23.0-23.9, adult Start:30-Sep-2021 Instruction Type:Provider Instructions for Treatment How to Access Health Informa tion Online using Patient Portal and [employer] Indication:BMI 23.0-23.9, adult Start:30-Sep-2021 Instruction Type:Patient Education Patient Instructions Indication:UTI symptoms Start:15-Sep-2021 Instruction Type:Provider Instructions for Treatment How to Access Health Informa tion Online using Patient Portal and [employer] Apps Indication:UTI symptoms Start:15-Sep-2021 Instruction Type:Patient Education Patient Instructions Indication:BMI 22.0-22.9, adult Start:27-Aug-2021 Instruction Type:Provider Instructions for Treatment How to Access Health Informa tion Online using Patient Portal and [employer] Apps Indication:BMI 22.0-22.9, adult Start:27-Aug-2021 Instruction Type:Patient Education Patient Instructions Indication:Impaired fasting glucose Start:12-Aug-2021 Instruction Type:Provider Instructions for Treatment How to Access Health Informa tion Online using Patient Portal and [employer] Apps Indication:Impaired fasting glucose Start:12-Aug-2021 Instruction Type:Patient Education Patient Instructions Indication:Splinter of foot Start:03-Jul-2021 Instruction Type:Provider Instructions for Treatment How to Access Health Informa tion Online using Patient Portal and [employer] Apps Indication:Splinter of foot Start:03-Jul-2021 Instruction Type:Patient Education Patient Instructions Indication:BMI 23.0-23.9, adult Start:27-May-2021 Instruction Type:Provider Instructions for Treatment How to Access Health Informa tion Online using Patient Portal and [employer] Indication:BMI 23.0-23.9, adult Start:27-May-2021 Instruction Type:Patient Education Patient Instructions Indication:Nonsmoker Start:13-May-2021 Instruction Type:Provider Instructions for Treatment How to Access Health Informa tion Online using Patient Portal and [employer] Indication:Nonsmoker Start:13-May-2021 Instruction Type:Patient Education Patient Instructions Indication:Nonsmoker Start:06-May-2021 Instruction Type:Provider Instructions for Treatment How to Access Health Informa tion Online using Patient Portal and [employer] Indication:Nonsmoker Start:06-May-2021 Instruction Type:Patient Education Patient Instructions Indication:Nonsmoker Start:08-Apr-2021 Instruction Type:Provider Instructions for Treatment How to Access Health Informa tion Online using Patient Portal and [employer] Indication:Nonsmoker Start:08-Apr-2021 Instruction Type:Patient Education Patient Instructions Indication:BMI 23.0-23.9, adult Start:20-Mar-2021 Instruction Type:Provider Instructions for Treatment How to Access Health Informa tion Online using Patient Portal and [employer] Indication:BMI 23.0-23.9, adult Start:20-Mar-2021 Instruction Type:Patient Education Patient Instructions Indication:Nonsmoker Start:18-Mar-2021 Instruction Type:Provider Instructions for Treatment How to Access Health Informa tion Online using Patient Portal and [employer] Indication:Nonsmoker Start:18-Mar-2021 Instruction Type:Patient Education Patient Instructions Indication:Nonsmoker Start:06-Feb-2021 Instruction Type:Provider Instructions for Treatment How to Access Health Informa tion Online using Patient Portal and [employer] Indication:Nonsmoker Start:06-Feb-2021 Instruction Type:Patient Education Patient Instructions Indication:Nonsmoker Start:06-Oct-2020 Instruction Type:Provider Instructions for Treatment How to Access Health Informa tion Online using Patient Portal and [employer] Indication:Nonsmoker Start:06-Oct-2020 Instruction Type:Patient Education Patient Instructions Indication:BMI 22.0-22.9, adult Start:29-Jul-2020 Instruction Type:Provider Instructions for Treatment How to Access Health Informa tion Online using Patient Portal and [employer] Indication:Nonsmoker Start:29-Jul-2020 Instruction Type:Patient Education Patient Instructions Indication:Nonsmoker Start:15-Jul-2020 Instruction Type:Provider Instructions for Treatment How to Access Health Informa tion Online using Patient Portal and [employer] Indication:Nonsmoker Start:15-Jul-2020 Instruction Type:Patient Education [facility]; [facility] Work Phone: Instructions* Name Dates Details Patient Instructions Indication:Nonsmoker Start:30-Dec-2021 Instruction Type:Provider Instructions for Treatment How to Access Health Informa tion Online using Patient Portal and [employer] Apps Indication:Nonsmoker Start:30-Dec-2021 Instruction Type:Patient Education Patient Instructions Indication:BMI 23.0-23.9, adult Start:14-Dec-2021 Instruction Type:Provider Instructions for Treatment How to Access Health Informa tion Online using Patient Portal and [employer] Apps Indication:BMI 23.0-23.9, adult Start:14-Dec-2021 Instruction Type:Patient Education Patient Instructions Indication:Nonsmoker Start:13-Nov-2021 Instruction Type:Provider Instructions for Treatment How to Access Health Informa tion Online using Patient Portal and [employer] Apps Indication:Nonsmoker Start:13-Nov-2021 Instruction Type:Patient Education Patient Instructions Indication:BMI 23.0-23.9, adult Start:19-Oct-2021 Instruction Type:Provider Instructions for Treatment How to Access Health Informa tion Online using Patient Portal and [employer] Apps Indication:BMI 23.0-23.9, adult Start:19-Oct-2021 Instruction Type:Patient Education Patient Instructions Indication:BMI 23.0-23.9, adult Start:30-Sep-2021 Instruction Type:Provider Instructions for Treatment How to Access Health Informa tion Online using Patient Portal and [employer] Apps Indication:BMI 23.0-23.9, adult Start:30-Sep-2021 Instruction Type:Patient Education Patient Instructions Indication:UTI symptoms Start:15-Sep-2021 Instruction Type:Provider Instructions for Treatment How to Access Health Informa tion Online using Patient Portal and [employer] Apps Indication:UTI symptoms Start:15-Sep-2021 Instruction Type:Patient Education Patient Instructions Indication:BMI 22.0-22.9, adult Start:27-Aug-2021 Instruction Type:Provider Instructions for Treatment How to Access Health Informa tion Online using Patient Portal and [employer] Apps Indication:BMI 22.0-22.9, adult Start:27-Aug-2021 Instruction Type:Patient Education Patient Instructions Indication:Impaired fasting glucose Start:12-Aug-2021 Instruction Type:Provider Instructions for Treatment How to Access Health Informa tion Online using Patient Portal and [employer] Apps Indication:Impaired fasting glucose Start:12-Aug-2021 Instruction Type:Patient Education Patient Instructions Indication:Splinter of foot Start:03-Jul-2021 Instruction Type:Provider Instructions for Treatment How to Access Health Informa tion Online using Patient Portal and [employer] Apps Indication:Splinter of foot Start:03-Jul-2021 Instruction Type:Patient Education Patient Instructions Indication:BMI 23.0-23.9, adult Start:27-May-2021 Instruction Type:Provider Instructions for Treatment How to Access Health Informa tion Online using Patient Portal and [employer] Apps Indication:BMI 23.0-23.9, adult Start:27-May-2021 Instruction Type:Patient Education Patient Instructions Indication:Nonsmoker Start:13-May-2021 Instruction Type:Provider Instructions for Treatment How to Access Health Informa tion Online using Patient Portal and [employer] Apps Indication:Nonsmoker Start:13-May-2021 Instruction Type:Patient Education Patient Instructions Indication:Nonsmoker Start:06-May-2021 Instruction Type:Provider Instructions for Treatment How to Access Health Informa tion Online using Patient Portal and [employer] Apps Indication:Nonsmoker Start:06-May-2021 Instruction Type:Patient Education Patient Instructions Indication:Nonsmoker Start:08-Apr-2021 Instruction Type:Provider Instructions for Treatment How to Access Health Informa tion Online using Patient Portal and [employer] Apps Indication:Nonsmoker Start:08-Apr-2021 Instruction Type:Patient Education Patient Instructions Indication:BMI 23.0-23.9, adult Start:20-Mar-2021 Instruction Type:Provider Instructions for Treatment How to Access Health Informa tion Online using Patient Portal and [employer] Apps Indication:BMI 23.0-23.9, adult Start:20-Mar-2021 Instruction Type:Patient Education Patient Instructions Indication:Nonsmoker Start:18-Mar-2021 Instruction Type:Provider Instructions for Treatment How to Access Health Informa tion Online using Patient Portal and [employer] Apps Indication:Nonsmoker Start:18-Mar-2021 Instruction Type:Patient Education Patient Instructions Indication:Nonsmoker Start:06-Feb-2021 Instruction Type:Provider Instructions for Treatment How to Access Health Informa tion Online using Patient Portal and [employer] Apps Indication:Nonsmoker Start:06-Feb-2021 Instruction Type:Patient Education Patient Instructions Indication:Nonsmoker Start:06-Oct-2020 Instruction Type:Provider Instructions for Treatment How to Access Health Informa tion Online using Patient Portal and [employer] Apps Indication:Nonsmoker Start:06-Oct-2020 Instruction Type:Patient Education Patient Instructions Indication:BMI 22.0-22.9, adult Start:29-Jul-2020 Instruction Type:Provider Instructions for Treatment How to Access Health Informa tion Online using Patient Portal and [employer] Apps Indication:Nonsmoker Start:29-Jul-2020 Instruction Type:Patient Education Patient Instructions Indication:Nonsmoker Start:15-Jul-2020 Instruction Type:Provider Instructions for Treatment How to Access Health Informa tion Online using Patient Portal and [employer] Apps Indication:Nonsmoker Start:15-Jul-2020 Instruction Type:Patient Education [facility]; [facility] Work Phone: Instructions* Name Dates Details Patient Instructions Indication:Nonsmoker Start:30-Dec-2021 Instruction Type:Provider Instructions for Treatment How to Access Health Informa tion Online using Patient Portal and [employer] Apps Indication:Nonsmoker Start:30-Dec-2021 Instruction Type:Patient Education Patient Instructions Indication:BMI 23.0-23.9, adult Start:14-Dec-2021 Instruction Type:Provider Instructions for Treatment How to Access Health Informa tion Online using Patient Portal and [employer] Apps Indication:BMI 23.0-23.9, adult Start:14-Dec-2021 Instruction Type:Patient Education Patient Instructions Indication:Nonsmoker Start:13-Nov-2021 Instruction Type:Provider Instructions for Treatment How to Access Health Informa tion Online using Patient Portal and [employer] Apps Indication:Nonsmoker Start:13-Nov-2021 Instruction Type:Patient Education Patient Instructions Indication:BMI 23.0-23.9, adult Start:19-Oct-2021 Instruction Type:Provider Instructions for Treatment How to Access Health Informa tion Online using Patient Portal and [employer] Apps Indication:BMI 23.0-23.9, adult Start:19-Oct-2021 Instruction Type:Patient Education Patient Instructions Indication:BMI 23.0-23.9, adult Start:30-Sep-2021 Instruction Type:Provider Instructions for Treatment How to Access Health Informa tion Online using Patient Portal and [employer] Apps Indication:BMI 23.0-23.9, adult Start:30-Sep-2021 Instruction Type:Patient Education Patient Instructions Indication:UTI symptoms Start:15-Sep-2021 Instruction Type:Provider Instructions for Treatment How to Access Health Informa tion Online using Patient Portal and [employer] Apps Indication:UTI symptoms Start:15-Sep-2021 Instruction Type:Patient Education Patient Instructions Indication:BMI 22.0-22.9, adult Start:27-Aug-2021 Instruction Type:Provider Instructions for Treatment How to Access Health Informa tion Online using Patient Portal and [employer] Apps Indication:BMI 22.0-22.9, adult Start:27-Aug-2021 Instruction Type:Patient Education Patient Instructions Indication:Impaired fasting glucose Start:12-Aug-2021 Instruction Type:Provider Instructions for Treatment How to Access Health Informa tion Online using Patient Portal and [employer] Apps Indication:Impaired fasting glucose Start:12-Aug-2021 Instruction Type:Patient Education Patient Instructions Indication:Splinter of foot Start:03-Jul-2021 Instruction Type:Provider Instructions for Treatment How to Access Health Informa tion Online using Patient Portal and [employer] Apps Indication:Splinter of foot Start:03-Jul-2021 Instruction Type:Patient Education Patient Instructions Indication:BMI 23.0-23.9, adult Start:27-May-2021 Instruction Type:Provider Instructions for Treatment How to Access Health Informa tion Online using Patient Portal and [employer] Apps Indication:BMI 23.0-23.9, adult Start:27-May-2021 Instruction Type:Patient Education Patient Instructions Indication:Nonsmoker Start:13-May-2021 Instruction Type:Provider Instructions for Treatment How to Access Health Informa tion Online using Patient Portal and [employer] Apps Indication:Nonsmoker Start:13-May-2021 Instruction Type:Patient Education Patient Instructions Indication:Nonsmoker Start:06-May-2021 Instruction Type:Provider Instructions for Treatment How to Access Health Informa tion Online using Patient Portal and [employer] Apps Indication:Nonsmoker Start:06-May-2021 Instruction Type:Patient Education Patient Instructions Indication:Nonsmoker Start:08-Apr-2021 Instruction Type:Provider Instructions for Treatment How to Access Health Informa tion Online using Patient Portal and [employer] Apps Indication:Nonsmoker Start:08-Apr-2021 Instruction Type:Patient Education Patient Instructions Indication:BMI 23.0-23.9, adult Start:20-Mar-2021 Instruction Type:Provider Instructions for Treatment How to Access Health Informa tion Online using Patient Portal and [employer] Apps Indication:BMI 23.0-23.9, adult Start:20-Mar-2021 Instruction Type:Patient Education Patient Instructions Indication:Nonsmoker Start:18-Mar-2021 Instruction Type:Provider Instructions for Treatment How to Access Health Informa tion Online using Patient Portal and [employer] Apps Indication:Nonsmoker Start:18-Mar-2021 Instruction Type:Patient Education Patient Instructions Indication:Nonsmoker Start:06-Feb-2021 Instruction Type:Provider Instructions for Treatment How to Access Health Informa tion Online using Patient Portal and [employer] Apps Indication:Nonsmoker Start:06-Feb-2021 Instruction Type:Patient Education Patient Instructions Indication:Nonsmoker Start:06-Oct-2020 Instruction Type:Provider Instructions for Treatment How to Access Health Informa tion Online using Patient Portal and [employer] Apps Indication:Nonsmoker Start:06-Oct-2020 Instruction Type:Patient Education Patient Instructions Indication:BMI 22.0-22.9, adult Start:29-Jul-2020 Instruction Type:Provider Instructions for Treatment How to Access Health Informa tion Online using Patient Portal and [employer] Apps Indication:Nonsmoker Start:29-Jul-2020 Instruction Type:Patient Education Patient Instructions Indication:Nonsmoker Start:15-Jul-2020 Instruction Type:Provider Instructions for Treatment How to Access Health Informa tion Online using Patient Portal and [employer] Apps Indication:Nonsmoker Start:15-Jul-2020 Instruction Type:Patient Education [facility]; [facility] Work Phone: Instructions* Name Dates Details Patient Instructions Indication:Nonsmoker Start:30-Dec-2021 Instruction Type:Provider Instructions for Treatment How to Access Health Informa tion Online using Patient Portal and [employer] Apps Indication:Nonsmoker Start:30-Dec-2021 Instruction Type:Patient Education Patient Instructions Indication:BMI 23.0-23.9, adult Start:14-Dec-2021 Instruction Type:Provider Instructions for Treatment How to Access Health Informa tion Online using Patient Portal and [employer] Apps Indication:BMI 23.0-23.9, adult Start:14-Dec-2021 Instruction Type:Patient Education Patient Instructions Indication:Nonsmoker Start:13-Nov-2021 Instruction Type:Provider Instructions for Treatment How to Access Health Informa tion Online using Patient Portal and [employer] Apps Indication:Nonsmoker Start:13-Nov-2021 Instruction Type:Patient Education Patient Instructions Indication:BMI 23.0-23.9, adult Start:19-Oct-2021 Instruction Type:Provider Instructions for Treatment How to Access Health Informa tion Online using Patient Portal and [employer] Apps Indication:BMI 23.0-23.9, adult Start:19-Oct-2021 Instruction Type:Patient Education Patient Instructions Indication:BMI 23.0-23.9, adult Start:30-Sep-2021 Instruction Type:Provider Instructions for Treatment How to Access Health Informa tion Online using Patient Portal and [employer] Apps Indication:BMI 23.0-23.9, adult Start:30-Sep-2021 Instruction Type:Patient Education Patient Instructions Indication:UTI symptoms Start:15-Sep-2021 Instruction Type:Provider Instructions for Treatment How to Access Health Informa tion Online using Patient Portal and [employer] Apps Indication:UTI symptoms Start:15-Sep-2021 Instruction Type:Patient Education Patient Instructions Indication:BMI 22.0-22.9, adult Start:27-Aug-2021 Instruction Type:Provider Instructions for Treatment How to Access Health Informa tion Online using Patient Portal and [employer] Apps Indication:BMI 22.0-22.9, adult Start:27-Aug-2021 Instruction Type:Patient Education Patient Instructions Indication:Impaired fasting glucose Start:12-Aug-2021 Instruction Type:Provider Instructions for Treatment How to Access Health Informa tion Online using Patient Portal and [employer] Apps Indication:Impaired fasting glucose Start:12-Aug-2021 Instruction Type:Patient Education Patient Instructions Indication:Splinter of foot Start:03-Jul-2021 Instruction Type:Provider Instructions for Treatment How to Access Health Informa tion Online using Patient Portal and [employer] Apps Indication:Splinter of foot Start:03-Jul-2021 Instruction Type:Patient Education Patient Instructions Indication:BMI 23.0-23.9, adult Start:27-May-2021 Instruction Type:Provider Instructions for Treatment How to Access Health Informa tion Online using Patient Portal and [employer] Apps Indication:BMI 23.0-23.9, adult Start:27-May-2021 Instruction Type:Patient Education Patient Instructions Indication:Nonsmoker Start:13-May-2021 Instruction Type:Provider Instructions for Treatment How to Access Health Informa tion Online using Patient Portal and [employer] Apps Indication:Nonsmoker Start:13-May-2021 Instruction Type:Patient Education Patient Instructions Indication:Nonsmoker Start:06-May-2021 Instruction Type:Provider Instructions for Treatment How to Access Health Informa tion Online using Patient Portal and [employer] Apps Indication:Nonsmoker Start:06-May-2021 Instruction Type:Patient Education Patient Instructions Indication:Nonsmoker Start:08-Apr-2021 Instruction Type:Provider Instructions for Treatment How to Access Health Informa tion Online using Patient Portal and [employer] Apps Indication:Nonsmoker Start:08-Apr-2021 Instruction Type:Patient Education Patient Instructions Indication:BMI 23.0-23.9, adult Start:20-Mar-2021 Instruction Type:Provider Instructions for Treatment How to Access Health Informa tion Online using Patient Portal and [employer] Apps Indication:BMI 23.0-23.9, adult Start:20-Mar-2021 Instruction Type:Patient Education Patient Instructions Indication:Nonsmoker Start:18-Mar-2021 Instruction Type:Provider Instructions for Treatment How to Access Health Informa tion Online using Patient Portal and [employer] Apps Indication:Nonsmoker Start:18-Mar-2021 Instruction Type:Patient Education Patient Instructions Indication:Nonsmoker Start:06-Feb-2021 Instruction Type:Provider Instructions for Treatment How to Access Health Informa tion Online using Patient Portal and [employer] Apps Indication:Nonsmoker Start:06-Feb-2021 Instruction Type:Patient Education Patient Instructions Indication:Nonsmoker Start:06-Oct-2020 Instruction Type:Provider Instructions for Treatment How to Access Health Informa tion Online using Patient Portal and [employer] Apps Indication:Nonsmoker Start:06-Oct-2020 Instruction Type:Patient Education Patient Instructions Indication:BMI 22.0-22.9, adult Start:29-Jul-2020 Instruction Type:Provider Instructions for Treatment How to Access Health Informa tion Online using Patient Portal and [employer] Apps Indication:Nonsmoker Start:29-Jul-2020 Instruction Type:Patient Education Patient Instructions Indication:Nonsmoker Start:15-Jul-2020 Instruction Type:Provider Instructions for Treatment How to Access Health Informa tion Online using Patient Portal and [employer] Apps Indication:Nonsmoker Start:15-Jul-2020 Instruction Type:Patient Education [facility]; [facility] Work Phone: Instructions* Name Dates Details Patient Instructions Indication:Nonsmoker Start:30-Dec-2021 Instruction Type:Provider Instructions for Treatment How to Access Health Informa tion Online using Patient Portal and [employer] Apps Indication:Nonsmoker Start:30-Dec-2021 Instruction Type:Patient Education Patient Instructions Indication:BMI 23.0-23.9, adult Start:14-Dec-2021 Instruction Type:Provider Instructions for Treatment How to Access Health Informa tion Online using Patient Portal and [employer] Apps Indication:BMI 23.0-23.9, adult Start:14-Dec-2021 Instruction Type:Patient Education Patient Instructions Indication:Nonsmoker Start:13-Nov-2021 Instruction Type:Provider Instructions for Treatment How to Access Health Informa tion Online using Patient Portal and [employer] Apps Indication:Nonsmoker Start:13-Nov-2021 Instruction Type:Patient Education Patient Instructions Indication:BMI 23.0-23.9, adult Start:19-Oct-2021 Instruction Type:Provider Instructions for Treatment How to Access Health Informa tion Online using Patient Portal and [employer] Apps Indication:BMI 23.0-23.9, adult Start:19-Oct-2021 Instruction Type:Patient Education Patient Instructions Indication:BMI 23.0-23.9, adult Start:30-Sep-2021 Instruction Type:Provider Instructions for Treatment How to Access Health Informa tion Online using Patient Portal and [employer] Apps Indication:BMI 23.0-23.9, adult Start:30-Sep-2021 Instruction Type:Patient Education Patient Instructions Indication:UTI symptoms Start:15-Sep-2021 Instruction Type:Provider Instructions for Treatment How to Access Health Informa tion Online using Patient Portal and [employer] Apps Indication:UTI symptoms Start:15-Sep-2021 Instruction Type:Patient Education Patient Instructions Indication:BMI 22.0-22.9, adult Start:27-Aug-2021 Instruction Type:Provider Instructions for Treatment How to Access Health Informa tion Online using Patient Portal and [employer] Apps Indication:BMI 22.0-22.9, adult Start:27-Aug-2021 Instruction Type:Patient Education Patient Instructions Indication:Impaired fasting glucose Start:12-Aug-2021 Instruction Type:Provider Instructions for Treatment How to Access Health Informa tion Online using Patient Portal and [employer] Apps Indication:Impaired fasting glucose Start:12-Aug-2021 Instruction Type:Patient Education Patient Instructions Indication:Splinter of foot Start:03-Jul-2021 Instruction Type:Provider Instructions for Treatment How to Access Health Informa tion Online using Patient Portal and [employer] Apps Indication:Splinter of foot Start:03-Jul-2021 Instruction Type:Patient Education Patient Instructions Indication:BMI 23.0-23.9, adult Start:27-May-2021 Instruction Type:Provider Instructions for Treatment How to Access Health Informa tion Online using Patient Portal and [employer] Indication:BMI 23.0-23.9, adult Start:27-May-2021 Instruction Type:Patient Education Patient Instructions Indication:Nonsmoker Start:13-May-2021 Instruction Type:Provider Instructions for Treatment How to Access Health Informa tion Online using Patient Portal and [employer] Apps Indication:Nonsmoker Start:13-May-2021 Instruction Type:Patient Education Patient Instructions Indication:Nonsmoker Start:06-May-2021 Instruction Type:Provider Instructions for Treatment How to Access Health Informa tion Online using Patient Portal and [employer] Apps Indication:Nonsmoker Start:06-May-2021 Instruction Type:Patient Education Patient Instructions Indication:Nonsmoker Start:08-Apr-2021 Instruction Type:Provider Instructions for Treatment How to Access Health Informa tion Online using Patient Portal and [employer] Indication:Nonsmoker Start:08-Apr-2021 Instruction Type:Patient Education Patient Instructions Indication:BMI 23.0-23.9, adult Start:20-Mar-2021 Instruction Type:Provider Instructions for Treatment How to Access Health Informa tion Online using Patient Portal and [employer] Indication:BMI 23.0-23.9, adult Start:20-Mar-2021 Instruction Type:Patient Education Patient Instructions Indication:Nonsmoker Start:18-Mar-2021 Instruction Type:Provider Instructions for Treatment How to Access Health Informa tion Online using Patient Portal and [employer] Apps Indication:Nonsmoker Start:18-Mar-2021 Instruction Type:Patient Education Patient Instructions Indication:Nonsmoker Start:06-Feb-2021 Instruction Type:Provider Instructions for Treatment How to Access Health Informa tion Online using Patient Portal and [employer] Apps Indication:Nonsmoker Start:06-Feb-2021 Instruction Type:Patient Education Patient Instructions Indication:Nonsmoker Start:06-Oct-2020 Instruction Type:Provider Instructions for Treatment How to Access Health Informa tion Online using Patient Portal and [employer] Apps Indication:Nonsmoker Start:06-Oct-2020 Instruction Type:Patient Education Patient Instructions Indication:BMI 22.0-22.9, adult Start:29-Jul-2020 Instruction Type:Provider Instructions for Treatment How to Access Health Informa tion Online using Patient Portal and [employer] Apps Indication:Nonsmoker Start:29-Jul-2020 Instruction Type:Patient Education Patient Instructions Indication:Nonsmoker Start:15-Jul-2020 Instruction Type:Provider Instructions for Treatment How to Access Health Informa tion Online using Patient Portal and [employer] Indication:Nonsmoker Start:15-Jul-2020 Instruction Type:Patient Education [facility]; [facility] Work Phone: Instructions* Name Dates Details Patient Instructions Indication:Nonsmoker Start:30-Dec-2021 Instruction Type:Provider Instructions for Treatment How to Access Health Informa tion Online using Patient Portal and [employer] Apps Indication:Nonsmoker Start:30-Dec-2021 Instruction Type:Patient Education Patient Instructions Indication:BMI 23.0-23.9, adult Start:14-Dec-2021 Instruction Type:Provider Instructions for Treatment How to Access Health Informa tion Online using Patient Portal and [employer] Indication:BMI 23.0-23.9, adult Start:14-Dec-2021 Instruction Type:Patient Education Patient Instructions Indication:Nonsmoker Start:13-Nov-2021 Instruction Type:Provider Instructions for Treatment How to Access Health Informa tion Online using Patient Portal and [employer] Apps Indication:Nonsmoker Start:13-Nov-2021 Instruction Type:Patient Education Patient Instructions Indication:BMI 23.0-23.9, adult Start:19-Oct-2021 Instruction Type:Provider Instructions for Treatment How to Access Health Informa tion Online using Patient Portal and [employer] Indication:BMI 23.0-23.9, adult Start:19-Oct-2021 Instruction Type:Patient Education Patient Instructions Indication:BMI 23.0-23.9, adult Start:30-Sep-2021 Instruction Type:Provider Instructions for Treatment How to Access Health Informa tion Online using Patient Portal and [employer] Indication:BMI 23.0-23.9, adult Start:30-Sep-2021 Instruction Type:Patient Education Patient Instructions Indication:UTI symptoms Start:15-Sep-2021 Instruction Type:Provider Instructions for Treatment How to Access Health Informa tion Online using Patient Portal and [employer] Apps Indication:UTI symptoms Start:15-Sep-2021 Instruction Type:Patient Education Patient Instructions Indication:BMI 22.0-22.9, adult Start:27-Aug-2021 Instruction Type:Provider Instructions for Treatment How to Access Health Informa tion Online using Patient Portal and [employer] Apps Indication:BMI 22.0-22.9, adult Start:27-Aug-2021 Instruction Type:Patient Education Patient Instructions Indication:Impaired fasting glucose Start:12-Aug-2021 Instruction Type:Provider Instructions for Treatment How to Access Health Informa tion Online using Patient Portal and [employer] Apps Indication:Impaired fasting glucose Start:12-Aug-2021 Instruction Type:Patient Education Patient Instructions Indication:Splinter of foot Start:03-Jul-2021 Instruction Type:Provider Instructions for Treatment How to Access Health Informa tion Online using Patient Portal and [employer] Apps Indication:Splinter of foot Start:03-Jul-2021 Instruction Type:Patient Education Patient Instructions Indication:BMI 23.0-23.9, adult Start:27-May-2021 Instruction Type:Provider Instructions for Treatment How to Access Health Informa tion Online using Patient Portal and [employer] Apps Indication:BMI 23.0-23.9, adult Start:27-May-2021 Instruction Type:Patient Education Patient Instructions Indication:Nonsmoker Start:13-May-2021 Instruction Type:Provider Instructions for Treatment How to Access Health Informa tion Online using Patient Portal and [employer] Apps Indication:Nonsmoker Start:13-May-2021 Instruction Type:Patient Education Patient Instructions Indication:Nonsmoker Start:06-May-2021 Instruction Type:Provider Instructions for Treatment How to Access Health Informa tion Online using Patient Portal and [employer] Apps Indication:Nonsmoker Start:06-May-2021 Instruction Type:Patient Education Patient Instructions Indication:Nonsmoker Start:08-Apr-2021 Instruction Type:Provider Instructions for Treatment How to Access Health Informa tion Online using Patient Portal and [employer] Apps Indication:Nonsmoker Start:08-Apr-2021 Instruction Type:Patient Education Patient Instructions Indication:BMI 23.0-23.9, adult Start:20-Mar-2021 Instruction Type:Provider Instructions for Treatment How to Access Health Informa tion Online using Patient Portal and [employer] Apps Indication:BMI 23.0-23.9, adult Start:20-Mar-2021 Instruction Type:Patient Education Patient Instructions Indication:Nonsmoker Start:18-Mar-2021 Instruction Type:Provider Instructions for Treatment How to Access Health Informa tion Online using Patient Portal and [employer] Apps Indication:Nonsmoker Start:18-Mar-2021 Instruction Type:Patient Education Patient Instructions Indication:Nonsmoker Start:06-Feb-2021 Instruction Type:Provider Instructions for Treatment How to Access Health Informa tion Online using Patient Portal and [employer] Apps Indication:Nonsmoker Start:06-Feb-2021 Instruction Type:Patient Education Patient Instructions Indication:Nonsmoker Start:06-Oct-2020 Instruction Type:Provider Instructions for Treatment How to Access Health Informa tion Online using Patient Portal and [employer] Apps Indication:Nonsmoker Start:06-Oct-2020 Instruction Type:Patient Education Patient Instructions Indication:BMI 22.0-22.9, adult Start:29-Jul-2020 Instruction Type:Provider Instructions for Treatment How to Access Health Informa tion Online using Patient Portal and [employer] Apps Indication:Nonsmoker Start:29-Jul-2020 Instruction Type:Patient Education Patient Instructions Indication:Nonsmoker Start:15-Jul-2020 Instruction Type:Provider Instructions for Treatment How to Access Health Informa tion Online using Patient Portal and [employer] Apps Indication:Nonsmoker Start:15-Jul-2020 Instruction Type:Patient Education [facility]; [facility] Work Phone: Instructions* Name Dates Details Patient Instructions Indication:BMI 23.0-23.9, adult Start:19-Mar-2022 Instruction Type:Provider Instructions for Treatment How to Access Health Informa tion Online using Patient Portal and [employer] Apps Indication:BMI 23.0-23.9, adult Start:19-Mar-2022 Instruction Type:Patient Education Patient Instructions Indication:Nonsmoker Start:30-Dec-2021 Instruction Type:Provider Instructions for Treatment How to Access Health Informa tion Online using Patient Portal and [employer] Apps Indication:Nonsmoker Start:30-Dec-2021 Instruction Type:Patient Education Patient Instructions Indication:BMI 23.0-23.9, adult Start:14-Dec-2021 Instruction Type:Provider Instructions for Treatment How to Access Health Informa tion Online using Patient Portal and [employer] Apps Indication:BMI 23.0-23.9, adult Start:14-Dec-2021 Instruction Type:Patient Education Patient Instructions Indication:Nonsmoker Start:13-Nov-2021 Instruction Type:Provider Instructions for Treatment How to Access Health Informa tion Online using Patient Portal and [employer] Apps Indication:Nonsmoker Start:13-Nov-2021 Instruction Type:Patient Education Patient Instructions Indication:BMI 23.0-23.9, adult Start:19-Oct-2021 Instruction Type:Provider Instructions for Treatment How to Access Health Informa tion Online using Patient Portal and [employer] Apps Indication:BMI 23.0-23.9, adult Start:19-Oct-2021 Instruction Type:Patient Education Patient Instructions Indication:BMI 23.0-23.9, adult Start:30-Sep-2021 Instruction Type:Provider Instructions for Treatment How to Access Health Informa tion Online using Patient Portal and [employer] Apps Indication:BMI 23.0-23.9, adult Start:30-Sep-2021 Instruction Type:Patient Education Patient Instructions Indication:UTI symptoms Start:15-Sep-2021 Instruction Type:Provider Instructions for Treatment How to Access Health Informa tion Online using Patient Portal and [employer] Apps Indication:UTI symptoms Start:15-Sep-2021 Instruction Type:Patient Education Patient Instructions Indication:BMI 22.0-22.9, adult Start:27-Aug-2021 Instruction Type:Provider Instructions for Treatment How to Access Health Informa tion Online using Patient Portal and [employer] Apps Indication:BMI 22.0-22.9, adult Start:27-Aug-2021 Instruction Type:Patient Education Patient Instructions Indication:Impaired fasting glucose Start:12-Aug-2021 Instruction Type:Provider Instructions for Treatment How to Access Health Informa tion Online using Patient Portal and [employer] Apps Indication:Impaired fasting glucose Start:12-Aug-2021 Instruction Type:Patient Education Patient Instructions Indication:Splinter of foot Start:03-Jul-2021 Instruction Type:Provider Instructions for Treatment How to Access Health Informa tion Online using Patient Portal and [employer] Apps Indication:Splinter of foot Start:03-Jul-2021 Instruction Type:Patient Education Patient Instructions Indication:BMI 23.0-23.9, adult Start:27-May-2021 Instruction Type:Provider Instructions for Treatment How to Access Health Informa tion Online using Patient Portal and [employer] Apps Indication:BMI 23.0-23.9, adult Start:27-May-2021 Instruction Type:Patient Education Patient Instructions Indication:Nonsmoker Start:13-May-2021 Instruction Type:Provider Instructions for Treatment How to Access Health Informa tion Online using Patient Portal and [employer] Apps Indication:Nonsmoker Start:13-May-2021 Instruction Type:Patient Education Patient Instructions Indication:Nonsmoker Start:06-May-2021 Instruction Type:Provider Instructions for Treatment How to Access Health Informa tion Online using Patient Portal and [employer] Apps Indication:Nonsmoker Start:06-May-2021 Instruction Type:Patient Education Patient Instructions Indication:Nonsmoker Start:08-Apr-2021 Instruction Type:Provider Instructions for Treatment How to Access Health Informa tion Online using Patient Portal and [employer] Apps Indication:Nonsmoker Start:08-Apr-2021 Instruction Type:Patient Education Patient Instructions Indication:BMI 23.0-23.9, adult Start:20-Mar-2021 Instruction Type:Provider Instructions for Treatment How to Access Health Informa tion Online using Patient Portal and [employer] Apps Indication:BMI 23.0-23.9, adult Start:20-Mar-2021 Instruction Type:Patient Education Patient Instructions Indication:Nonsmoker Start:18-Mar-2021 Instruction Type:Provider Instructions for Treatment How to Access Health Informa tion Online using Patient Portal and [employer] Apps Indication:Nonsmoker Start:18-Mar-2021 Instruction Type:Patient Education Patient Instructions Indication:Nonsmoker Start:06-Feb-2021 Instruction Type:Provider Instructions for Treatment How to Access Health Informa tion Online using Patient Portal and [employer] Apps Indication:Nonsmoker Start:06-Feb-2021 Instruction Type:Patient Education Patient Instructions Indication:Nonsmoker Start:06-Oct-2020 Instruction Type:Provider Instructions for Treatment How to Access Health Informa tion Online using Patient Portal and [employer] Apps Indication:Nonsmoker Start:06-Oct-2020 Instruction Type:Patient Education Patient Instructions Indication:BMI 22.0-22.9, adult Start:29-Jul-2020 Instruction Type:Provider Instructions for Treatment How to Access Health Informa tion Online using Patient Portal and [employer] Apps Indication:Nonsmoker Start:29-Jul-2020 Instruction Type:Patient Education Patient Instructions Indication:Nonsmoker Start:15-Jul-2020 Instruction Type:Provider Instructions for Treatment How to Access Health Informa tion Online using Patient Portal and [employer] Apps Indication:Nonsmoker Start:15-Jul-2020 Instruction Type:Patient Education [facility]; [facility] Work Phone: Instructions* Name Dates Details Patient Instructions Indication:BMI 23.0-23.9, adult Start:19-Mar-2022 Instruction Type:Provider Instructions for Treatment How to Access Health Informa tion Online using Patient Portal and [employer] Apps Indication:BMI 23.0-23.9, adult Start:19-Mar-2022 Instruction Type:Patient Education Patient Instructions Indication:Nonsmoker Start:30-Dec-2021 Instruction Type:Provider Instructions for Treatment How to Access Health Informa tion Online using Patient Portal and [employer] Apps Indication:Nonsmoker Start:30-Dec-2021 Instruction Type:Patient Education Patient Instructions Indication:BMI 23.0-23.9, adult Start:14-Dec-2021 Instruction Type:Provider Instructions for Treatment How to Access Health Informa tion Online using Patient Portal and [employer] Apps Indication:BMI 23.0-23.9, adult Start:14-Dec-2021 Instruction Type:Patient Education Patient Instructions Indication:Nonsmoker Start:13-Nov-2021 Instruction Type:Provider Instructions for Treatment How to Access Health Informa tion Online using Patient Portal and [employer] Apps Indication:Nonsmoker Start:13-Nov-2021 Instruction Type:Patient Education Patient Instructions Indication:BMI 23.0-23.9, adult Start:19-Oct-2021 Instruction Type:Provider Instructions for Treatment How to Access Health Informa tion Online using Patient Portal and [employer] Indication:BMI 23.0-23.9, adult Start:19-Oct-2021 Instruction Type:Patient Education Patient Instructions Indication:BMI 23.0-23.9, adult Start:30-Sep-2021 Instruction Type:Provider Instructions for Treatment How to Access Health Informa tion Online using Patient Portal and [employer] Indication:BMI 23.0-23.9, adult Start:30-Sep-2021 Instruction Type:Patient Education Patient Instructions Indication:UTI symptoms Start:15-Sep-2021 Instruction Type:Provider Instructions for Treatment How to Access Health Informa tion Online using Patient Portal and [employer] Apps Indication:UTI symptoms Start:15-Sep-2021 Instruction Type:Patient Education Patient Instructions Indication:BMI 22.0-22.9, adult Start:27-Aug-2021 Instruction Type:Provider Instructions for Treatment How to Access Health Informa tion Online using Patient Portal and [employer] Indication:BMI 22.0-22.9, adult Start:27-Aug-2021 Instruction Type:Patient Education Patient Instructions Indication:Impaired fasting glucose Start:12-Aug-2021 Instruction Type:Provider Instructions for Treatment How to Access Health Informa tion Online using Patient Portal and [employer] Apps Indication:Impaired fasting glucose Start:12-Aug-2021 Instruction Type:Patient Education Patient Instructions Indication:Splinter of foot Start:03-Jul-2021 Instruction Type:Provider Instructions for Treatment How to Access Health Informa tion Online using Patient Portal and [employer] Indication:Splinter of foot Start:03-Jul-2021 Instruction Type:Patient Education Patient Instructions Indication:BMI 23.0-23.9, adult Start:27-May-2021 Instruction Type:Provider Instructions for Treatment How to Access Health Informa tion Online using Patient Portal and [employer] Indication:BMI 23.0-23.9, adult Start:27-May-2021 Instruction Type:Patient Education Patient Instructions Indication:Nonsmoker Start:13-May-2021 Instruction Type:Provider Instructions for Treatment How to Access Health Informa tion Online using Patient Portal and [employer] Indication:Nonsmoker Start:13-May-2021 Instruction Type:Patient Education Patient Instructions Indication:Nonsmoker Start:06-May-2021 Instruction Type:Provider Instructions for Treatment How to Access Health Informa tion Online using Patient Portal and [employer] Apps Indication:Nonsmoker Start:06-May-2021 Instruction Type:Patient Education Patient Instructions Indication:Nonsmoker Start:08-Apr-2021 Instruction Type:Provider Instructions for Treatment How to Access Health Informa tion Online using Patient Portal and [employer] Apps Indication:Nonsmoker Start:08-Apr-2021 Instruction Type:Patient Education Patient Instructions Indication:BMI 23.0-23.9, adult Start:20-Mar-2021 Instruction Type:Provider Instructions for Treatment How to Access Health Informa tion Online using Patient Portal and [employer] Indication:BMI 23.0-23.9, adult Start:20-Mar-2021 Instruction Type:Patient Education Patient Instructions Indication:Nonsmoker Start:18-Mar-2021 Instruction Type:Provider Instructions for Treatment How to Access Health Informa tion Online using Patient Portal and [employer] Indication:Nonsmoker Start:18-Mar-2021 Instruction Type:Patient Education Patient Instructions Indication:Nonsmoker Start:06-Feb-2021 Instruction Type:Provider Instructions for Treatment How to Access Health Informa tion Online using Patient Portal and [employer] Indication:Nonsmoker Start:06-Feb-2021 Instruction Type:Patient Education Patient Instructions Indication:Nonsmoker Start:06-Oct-2020 Instruction Type:Provider Instructions for Treatment How to Access Health Informa tion Online using Patient Portal and [employer] Indication:Nonsmoker Start:06-Oct-2020 Instruction Type:Patient Education Patient Instructions Indication:BMI 22.0-22.9, adult Start:29-Jul-2020 Instruction Type:Provider Instructions for Treatment How to Access Health Informa tion Online using Patient Portal and [employer] Apps Indication:Nonsmoker Start:29-Jul-2020 Instruction Type:Patient Education Patient Instructions Indication:Nonsmoker Start:15-Jul-2020 Instruction Type:Provider Instructions for Treatment How to Access Health Informa tion Online using Patient Portal and [employer] Indication:Nonsmoker Start:15-Jul-2020 Instruction Type:Patient Education [facility]; [facility] Work Phone: Instructions* Name Dates Details Patient Instructions Indication:BMI 23.0-23.9, adult Start:16-Apr-2022 Instruction Type:Provider Instructions for Treatment How to Access Health Informa tion Online using Patient Portal and [employer] Indication:BMI 23.0-23.9, adult Start:16-Apr-2022 Instruction Type:Patient Education Patient Instructions Indication:BMI 23.0-23.9, adult Start:07-Apr-2022 Instruction Type:Provider Instructions for Treatment How to Access Health Informa tion Online using Patient Portal and [employer] Indication:BMI 23.0-23.9, adult Start:07-Apr-2022 Instruction Type:Patient Education Patient Instructions Indication:BMI 23.0-23.9, adult Start:19-Mar-2022 Instruction Type:Provider Instructions for Treatment How to Access Health Informa tion Online using Patient Portal and [employer] Indication:BMI 23.0-23.9, adult Start:19-Mar-2022 Instruction Type:Patient Education Patient Instructions Indication:Nonsmoker Start:30-Dec-2021 Instruction Type:Provider Instructions for Treatment How to Access Health Informa tion Online using Patient Portal and [employer] Indication:Nonsmoker Start:30-Dec-2021 Instruction Type:Patient Education Patient Instructions Indication:BMI 23.0-23.9, adult Start:14-Dec-2021 Instruction Type:Provider Instructions for Treatment How to Access Health Informa tion Online using Patient Portal and [employer] Indication:BMI 23.0-23.9, adult Start:14-Dec-2021 Instruction Type:Patient Education Patient Instructions Indication:Nonsmoker Start:13-Nov-2021 Instruction Type:Provider Instructions for Treatment How to Access Health Informa tion Online using Patient Portal and [employer] Indication:Nonsmoker Start:13-Nov-2021 Instruction Type:Patient Education Patient Instructions Indication:BMI 23.0-23.9, adult Start:19-Oct-2021 Instruction Type:Provider Instructions for Treatment How to Access Health Informa tion Online using Patient Portal and [employer] Indication:BMI 23.0-23.9, adult Start:19-Oct-2021 Instruction Type:Patient Education Patient Instructions Indication:BMI 23.0-23.9, adult Start:30-Sep-2021 Instruction Type:Provider Instructions for Treatment How to Access Health Informa tion Online using Patient Portal and [employer] Indication:BMI 23.0-23.9, adult Start:30-Sep-2021 Instruction Type:Patient Education Patient Instructions Indication:UTI symptoms Start:15-Sep-2021 Instruction Type:Provider Instructions for Treatment How to Access Health Informa tion Online using Patient Portal and [employer] Indication:UTI symptoms Start:15-Sep-2021 Instruction Type:Patient Education Patient Instructions Indication:BMI 22.0-22.9, adult Start:27-Aug-2021 Instruction Type:Provider Instructions for Treatment How to Access Health Informa tion Online using Patient Portal and [employer] Indication:BMI 22.0-22.9, adult Start:27-Aug-2021 Instruction Type:Patient Education Patient Instructions Indication:Impaired fasting glucose Start:12-Aug-2021 Instruction Type:Provider Instructions for Treatment How to Access Health Informa tion Online using Patient Portal and [employer] Indication:Impaired fasting glucose Start:12-Aug-2021 Instruction Type:Patient Education Patient Instructions Indication:Splinter of foot Start:03-Jul-2021 Instruction Type:Provider Instructions for Treatment How to Access Health Informa tion Online using Patient Portal and [employer] Indication:Splinter of foot Start:03-Jul-2021 Instruction Type:Patient Education Patient Instructions Indication:BMI 23.0-23.9, adult Start:27-May-2021 Instruction Type:Provider Instructions for Treatment How to Access Health Informa tion Online using Patient Portal and [employer] Indication:BMI 23.0-23.9, adult Start:27-May-2021 Instruction Type:Patient Education Patient Instructions Indication:Nonsmoker Start:13-May-2021 Instruction Type:Provider Instructions for Treatment How to Access Health Informa tion Online using Patient Portal and [employer] Indication:Nonsmoker Start:13-May-2021 Instruction Type:Patient Education Patient Instructions Indication:Nonsmoker Start:06-May-2021 Instruction Type:Provider Instructions for Treatment How to Access Health Informa tion Online using Patient Portal and [employer] Indication:Nonsmoker Start:06-May-2021 Instruction Type:Patient Education Patient Instructions Indication:Nonsmoker Start:08-Apr-2021 Instruction Type:Provider Instructions for Treatment How to Access Health Informa tion Online using Patient Portal and [employer] Indication:Nonsmoker Start:08-Apr-2021 Instruction Type:Patient Education Patient Instructions Indication:BMI 23.0-23.9, adult Start:20-Mar-2021 Instruction Type:Provider Instructions for Treatment How to Access Health Informa tion Online using Patient Portal and [employer] Indication:BMI 23.0-23.9, adult Start:20-Mar-2021 Instruction Type:Patient Education Patient Instructions Indication:Nonsmoker Start:18-Mar-2021 Instruction Type:Provider Instructions for Treatment How to Access Health Informa tion Online using Patient Portal and [employer] Indication:Nonsmoker Start:18-Mar-2021 Instruction Type:Patient Education Patient Instructions Indication:Nonsmoker Start:06-Feb-2021 Instruction Type:Provider Instructions for Treatment How to Access Health Informa tion Online using Patient Portal and [employer] Indication:Nonsmoker Start:06-Feb-2021 Instruction Type:Patient Education Patient Instructions Indication:Nonsmoker Start:06-Oct-2020 Instruction Type:Provider Instructions for Treatment How to Access Health Informa tion Online using Patient Portal and [employer] Indication:Nonsmoker Start:06-Oct-2020 Instruction Type:Patient Education Patient Instructions Indication:BMI 22.0-22.9, adult Start:29-Jul-2020 Instruction Type:Provider Instructions for Treatment How to Access Health Informa tion Online using Patient Portal and [employer] Indication:Nonsmoker Start:29-Jul-2020 Instruction Type:Patient Education Patient Instructions Indication:Nonsmoker Start:15-Jul-2020 Instruction Type:Provider Instructions for Treatment How to Access Health Informa tion Online using Patient Portal and [employer] Indication:Nonsmoker Start:15-Jul-2020 Instruction Type:Patient Education [facility]; [facility] Work Phone: Instructions* Name Dates Details Patient Instructions Indication:Nonsmoker Start:02-Aug-2022 Instruction Type:Provider Instructions for Treatment How to Access Health Informa tion Online using Patient Portal and [employer] Indication:Nonsmoker Start:02-Aug-2022 Instruction Type:Patient Education Patient Instructions Indication:BMI 23.0-23.9, adult Start:16-Apr-2022 Instruction Type:Provider Instructions for Treatment How to Access Health Informa tion Online using Patient Portal and [employer] Indication:BMI 23.0-23.9, adult Start:16-Apr-2022 Instruction Type:Patient Education Patient Instructions Indication:BMI 23.0-23.9, adult Start:07-Apr-2022 Instruction Type:Provider Instructions for Treatment How to Access Health Informa tion Online using Patient Portal and [employer] Indication:BMI 23.0-23.9, adult Start:07-Apr-2022 Instruction Type:Patient Education Patient Instructions Indication:BMI 23.0-23.9, adult Start:19-Mar-2022 Instruction Type:Provider Instructions for Treatment How to Access Health Informa tion Online using Patient Portal and [employer] Indication:BMI 23.0-23.9, adult Start:19-Mar-2022 Instruction Type:Patient Education Patient Instructions Indication:Nonsmoker Start:30-Dec-2021 Instruction Type:Provider Instructions for Treatment How to Access Health Informa tion Online using Patient Portal and [employer] Indication:Nonsmoker Start:30-Dec-2021 Instruction Type:Patient Education Patient Instructions Indication:BMI 23.0-23.9, adult Start:14-Dec-2021 Instruction Type:Provider Instructions for Treatment How to Access Health Informa tion Online using Patient Portal and [employer] Indication:BMI 23.0-23.9, adult Start:14-Dec-2021 Instruction Type:Patient Education Patient Instructions Indication:Nonsmoker Start:13-Nov-2021 Instruction Type:Provider Instructions for Treatment How to Access Health Informa tion Online using Patient Portal and [employer] Apps Indication:Nonsmoker Start:13-Nov-2021 Instruction Type:Patient Education Patient Instructions Indication:BMI 23.0-23.9, adult Start:19-Oct-2021 Instruction Type:Provider Instructions for Treatment How to Access Health Informa tion Online using Patient Portal and [employer] Indication:BMI 23.0-23.9, adult Start:19-Oct-2021 Instruction Type:Patient Education Patient Instructions Indication:BMI 23.0-23.9, adult Start:30-Sep-2021 Instruction Type:Provider Instructions for Treatment How to Access Health Informa tion Online using Patient Portal and [employer] Indication:BMI 23.0-23.9, adult Start:30-Sep-2021 Instruction Type:Patient Education Patient Instructions Indication:UTI symptoms Start:15-Sep-2021 Instruction Type:Provider Instructions for Treatment How to Access Health Informa tion Online using Patient Portal and [employer] Indication:UTI symptoms Start:15-Sep-2021 Instruction Type:Patient Education Patient Instructions Indication:BMI 22.0-22.9, adult Start:27-Aug-2021 Instruction Type:Provider Instructions for Treatment How to Access Health Informa tion Online using Patient Portal and [employer] Indication:BMI 22.0-22.9, adult Start:27-Aug-2021 Instruction Type:Patient Education Patient Instructions Indication:Impaired fasting glucose Start:12-Aug-2021 Instruction Type:Provider Instructions for Treatment How to Access Health Informa tion Online using Patient Portal and [employer] Indication:Impaired fasting glucose Start:12-Aug-2021 Instruction Type:Patient Education Patient Instructions Indication:Splinter of foot Start:03-Jul-2021 Instruction Type:Provider Instructions for Treatment How to Access Health Informa tion Online using Patient Portal and [employer] Indication:Splinter of foot Start:03-Jul-2021 Instruction Type:Patient Education Patient Instructions Indication:BMI 23.0-23.9, adult Start:27-May-2021 Instruction Type:Provider Instructions for Treatment How to Access Health Informa tion Online using Patient Portal and [employer] Indication:BMI 23.0-23.9, adult Start:27-May-2021 Instruction Type:Patient Education Patient Instructions Indication:Nonsmoker Start:13-May-2021 Instruction Type:Provider Instructions for Treatment How to Access Health Informa tion Online using Patient Portal and [employer] Apps Indication:Nonsmoker Start:13-May-2021 Instruction Type:Patient Education Patient Instructions Indication:Nonsmoker Start:06-May-2021 Instruction Type:Provider Instructions for Treatment How to Access Health Informa tion Online using Patient Portal and [employer] Apps Indication:Nonsmoker Start:06-May-2021 Instruction Type:Patient Education Patient Instructions Indication:Nonsmoker Start:08-Apr-2021 Instruction Type:Provider Instructions for Treatment How to Access Health Informa tion Online using Patient Portal and [employer] Indication:Nonsmoker Start:08-Apr-2021 Instruction Type:Patient Education Patient Instructions Indication:BMI 23.0-23.9, adult Start:20-Mar-2021 Instruction Type:Provider Instructions for Treatment How to Access Health Informa tion Online using Patient Portal and [employer] Indication:BMI 23.0-23.9, adult Start:20-Mar-2021 Instruction Type:Patient Education Patient Instructions Indication:Nonsmoker Start:18-Mar-2021 Instruction Type:Provider Instructions for Treatment How to Access Health Informa tion Online using Patient Portal and [employer] Apps Indication:Nonsmoker Start:18-Mar-2021 Instruction Type:Patient Education Patient Instructions Indication:Nonsmoker Start:06-Feb-2021 Instruction Type:Provider Instructions for Treatment How to Access Health Informa tion Online using Patient Portal and [employer] Apps Indication:Nonsmoker Start:06-Feb-2021 Instruction Type:Patient Education Patient Instructions Indication:Nonsmoker Start:06-Oct-2020 Instruction Type:Provider Instructions for Treatment How to Access Health Informa tion Online using Patient Portal and [employer] Apps Indication:Nonsmoker Start:06-Oct-2020 Instruction Type:Patient Education Patient Instructions Indication:BMI 22.0-22.9, adult Start:29-Jul-2020 Instruction Type:Provider Instructions for Treatment How to Access Health Informa tion Online using Patient Portal and [employer] Apps Indication:Nonsmoker Start:29-Jul-2020 Instruction Type:Patient Education Patient Instructions Indication:Nonsmoker Start:15-Jul-2020 Instruction Type:Provider Instructions for Treatment How to Access Health Informa tion Online using Patient Portal and [employer] Indication:Nonsmoker Start:15-Jul-2020 Instruction Type:Patient Education [facility]; [facility] Work Phone: Instructions* Name Dates Details Patient Instructions Indication:Nonsmoker Start:02-Aug-2022 Instruction Type:Provider Instructions for Treatment How to Access Health Informa tion Online using Patient Portal and [employer] Apps Indication:Nonsmoker Start:02-Aug-2022 Instruction Type:Patient Education Patient Instructions Indication:BMI 23.0-23.9, adult Start:16-Apr-2022 Instruction Type:Provider Instructions for Treatment How to Access Health Informa tion Online using Patient Portal and [employer] Indication:BMI 23.0-23.9, adult Start:16-Apr-2022 Instruction Type:Patient Education Patient Instructions Indication:BMI 23.0-23.9, adult Start:07-Apr-2022 Instruction Type:Provider Instructions for Treatment How to Access Health Informa tion Online using Patient Portal and [employer] Indication:BMI 23.0-23.9, adult Start:07-Apr-2022 Instruction Type:Patient Education Patient Instructions Indication:BMI 23.0-23.9, adult Start:19-Mar-2022 Instruction Type:Provider Instructions for Treatment How to Access Health Informa tion Online using Patient Portal and [employer] Apps Indication:BMI 23.0-23.9, adult Start:19-Mar-2022 Instruction Type:Patient Education Patient Instructions Indication:Nonsmoker Start:30-Dec-2021 Instruction Type:Provider Instructions for Treatment How to Access Health Informa tion Online using Patient Portal and [employer] Apps Indication:Nonsmoker Start:30-Dec-2021 Instruction Type:Patient Education Patient Instructions Indication:BMI 23.0-23.9, adult Start:14-Dec-2021 Instruction Type:Provider Instructions for Treatment How to Access Health Informa tion Online using Patient Portal and [employer] Indication:BMI 23.0-23.9, adult Start:14-Dec-2021 Instruction Type:Patient Education Patient Instructions Indication:Nonsmoker Start:13-Nov-2021 Instruction Type:Provider Instructions for Treatment How to Access Health Informa tion Online using Patient Portal and [employer] Apps Indication:Nonsmoker Start:13-Nov-2021 Instruction Type:Patient Education Patient Instructions Indication:BMI 23.0-23.9, adult Start:19-Oct-2021 Instruction Type:Provider Instructions for Treatment How to Access Health Informa tion Online using Patient Portal and [employer] Indication:BMI 23.0-23.9, adult Start:19-Oct-2021 Instruction Type:Patient Education Patient Instructions Indication:BMI 23.0-23.9, adult Start:30-Sep-2021 Instruction Type:Provider Instructions for Treatment How to Access Health Informa tion Online using Patient Portal and [employer] Apps Indication:BMI 23.0-23.9, adult Start:30-Sep-2021 Instruction Type:Patient Education Patient Instructions Indication:UTI symptoms Start:15-Sep-2021 Instruction Type:Provider Instructions for Treatment How to Access Health Informa tion Online using Patient Portal and [employer] Apps Indication:UTI symptoms Start:15-Sep-2021 Instruction Type:Patient Education Patient Instructions Indication:BMI 22.0-22.9, adult Start:27-Aug-2021 Instruction Type:Provider Instructions for Treatment How to Access Health Informa tion Online using Patient Portal and [employer] Indication:BMI 22.0-22.9, adult Start:27-Aug-2021 Instruction Type:Patient Education Patient Instructions Indication:Impaired fasting glucose Start:12-Aug-2021 Instruction Type:Provider Instructions for Treatment How to Access Health Informa tion Online using Patient Portal and [employer] Apps Indication:Impaired fasting glucose Start:12-Aug-2021 Instruction Type:Patient Education Patient Instructions Indication:Splinter of foot Start:03-Jul-2021 Instruction Type:Provider Instructions for Treatment How to Access Health Informa tion Online using Patient Portal and [employer] Indication:Splinter of foot Start:03-Jul-2021 Instruction Type:Patient Education Patient Instructions Indication:BMI 23.0-23.9, adult Start:27-May-2021 Instruction Type:Provider Instructions for Treatment How to Access Health Informa tion Online using Patient Portal and [employer] Indication:BMI 23.0-23.9, adult Start:27-May-2021 Instruction Type:Patient Education Patient Instructions Indication:Nonsmoker Start:13-May-2021 Instruction Type:Provider Instructions for Treatment How to Access Health Informa tion Online using Patient Portal and [employer] Apps Indication:Nonsmoker Start:13-May-2021 Instruction Type:Patient Education Patient Instructions Indication:Nonsmoker Start:06-May-2021 Instruction Type:Provider Instructions for Treatment How to Access Health Informa tion Online using Patient Portal and [employer] Apps Indication:Nonsmoker Start:06-May-2021 Instruction Type:Patient Education Patient Instructions Indication:Nonsmoker Start:08-Apr-2021 Instruction Type:Provider Instructions for Treatment How to Access Health Informa tion Online using Patient Portal and [employer] Apps Indication:Nonsmoker Start:08-Apr-2021 Instruction Type:Patient Education Patient Instructions Indication:BMI 23.0-23.9, adult Start:20-Mar-2021 Instruction Type:Provider Instructions for Treatment How to Access Health Informa tion Online using Patient Portal and [employer] Indication:BMI 23.0-23.9, adult Start:20-Mar-2021 Instruction Type:Patient Education Patient Instructions Indication:Nonsmoker Start:18-Mar-2021 Instruction Type:Provider Instructions for Treatment How to Access Health Informa tion Online using Patient Portal and [employer] Apps Indication:Nonsmoker Start:18-Mar-2021 Instruction Type:Patient Education Patient Instructions Indication:Nonsmoker Start:06-Feb-2021 Instruction Type:Provider Instructions for Treatment How to Access Health Informa tion Online using Patient Portal and [employer] Apps Indication:Nonsmoker Start:06-Feb-2021 Instruction Type:Patient Education Patient Instructions Indication:Nonsmoker Start:06-Oct-2020 Instruction Type:Provider Instructions for Treatment How to Access Health Informa tion Online using Patient Portal and [employer] Apps Indication:Nonsmoker Start:06-Oct-2020 Instruction Type:Patient Education Patient Instructions Indication:BMI 22.0-22.9, adult Start:29-Jul-2020 Instruction Type:Provider Instructions for Treatment How to Access Health Informa tion Online using Patient Portal and [employer] Apps Indication:Nonsmoker Start:29-Jul-2020 Instruction Type:Patient Education Patient Instructions Indication:Nonsmoker Start:15-Jul-2020 Instruction Type:Provider Instructions for Treatment How to Access Health Informa tion Online using Patient Portal and [employer] Apps Indication:Nonsmoker Start:15-Jul-2020 Instruction Type:Patient Education [facility]; [facility] Work Phone: Instructions* Name Dates Details Patient Instructions Indication:Nonsmoker Start:02-Aug-2022 Instruction Type:Provider Instructions for Treatment How to Access Health Informa tion Online using Patient Portal and [employer] Apps Indication:Nonsmoker Start:02-Aug-2022 Instruction Type:Patient Education Patient Instructions Indication:BMI 23.0-23.9, adult Start:16-Apr-2022 Instruction Type:Provider Instructions for Treatment How to Access Health Informa tion Online using Patient Portal and [employer] Apps Indication:BMI 23.0-23.9, adult Start:16-Apr-2022 Instruction Type:Patient Education Patient Instructions Indication:BMI 23.0-23.9, adult Start:07-Apr-2022 Instruction Type:Provider Instructions for Treatment How to Access Health Informa tion Online using Patient Portal and [employer] Apps Indication:BMI 23.0-23.9, adult Start:07-Apr-2022 Instruction Type:Patient Education Patient Instructions Indication:BMI 23.0-23.9, adult Start:19-Mar-2022 Instruction Type:Provider Instructions for Treatment How to Access Health Informa tion Online using Patient Portal and [employer] Apps Indication:BMI 23.0-23.9, adult Start:19-Mar-2022 Instruction Type:Patient Education Patient Instructions Indication:Nonsmoker Start:30-Dec-2021 Instruction Type:Provider Instructions for Treatment How to Access Health Informa tion Online using Patient Portal and [employer] Apps Indication:Nonsmoker Start:30-Dec-2021 Instruction Type:Patient Education Patient Instructions Indication:BMI 23.0-23.9, adult Start:14-Dec-2021 Instruction Type:Provider Instructions for Treatment How to Access Health Informa tion Online using Patient Portal and [employer] Apps Indication:BMI 23.0-23.9, adult Start:14-Dec-2021 Instruction Type:Patient Education Patient Instructions Indication:Nonsmoker Start:13-Nov-2021 Instruction Type:Provider Instructions for Treatment How to Access Health Informa tion Online using Patient Portal and [employer] Apps Indication:Nonsmoker Start:13-Nov-2021 Instruction Type:Patient Education Patient Instructions Indication:BMI 23.0-23.9, adult Start:19-Oct-2021 Instruction Type:Provider Instructions for Treatment How to Access Health Informa tion Online using Patient Portal and [employer] Apps Indication:BMI 23.0-23.9, adult Start:19-Oct-2021 Instruction Type:Patient Education Patient Instructions Indication:BMI 23.0-23.9, adult Start:30-Sep-2021 Instruction Type:Provider Instructions for Treatment How to Access Health Informa tion Online using Patient Portal and [employer] Apps Indication:BMI 23.0-23.9, adult Start:30-Sep-2021 Instruction Type:Patient Education Patient Instructions Indication:UTI symptoms Start:15-Sep-2021 Instruction Type:Provider Instructions for Treatment How to Access Health Informa tion Online using Patient Portal and [employer] Apps Indication:UTI symptoms Start:15-Sep-2021 Instruction Type:Patient Education Patient Instructions Indication:BMI 22.0-22.9, adult Start:27-Aug-2021 Instruction Type:Provider Instructions for Treatment How to Access Health Informa tion Online using Patient Portal and [employer] Apps Indication:BMI 22.0-22.9, adult Start:27-Aug-2021 Instruction Type:Patient Education Patient Instructions Indication:Impaired fasting glucose Start:12-Aug-2021 Instruction Type:Provider Instructions for Treatment How to Access Health Informa tion Online using Patient Portal and [employer] Apps Indication:Impaired fasting glucose Start:12-Aug-2021 Instruction Type:Patient Education Patient Instructions Indication:Splinter of foot Start:03-Jul-2021 Instruction Type:Provider Instructions for Treatment How to Access Health Informa tion Online using Patient Portal and [employer] Apps Indication:Splinter of foot Start:03-Jul-2021 Instruction Type:Patient Education Patient Instructions Indication:BMI 23.0-23.9, adult Start:27-May-2021 Instruction Type:Provider Instructions for Treatment How to Access Health Informa tion Online using Patient Portal and [employer] Apps Indication:BMI 23.0-23.9, adult Start:27-May-2021 Instruction Type:Patient Education Patient Instructions Indication:Nonsmoker Start:13-May-2021 Instruction Type:Provider Instructions for Treatment How to Access Health Informa tion Online using Patient Portal and [employer] Apps Indication:Nonsmoker Start:13-May-2021 Instruction Type:Patient Education Patient Instructions Indication:Nonsmoker Start:06-May-2021 Instruction Type:Provider Instructions for Treatment How to Access Health Informa tion Online using Patient Portal and [employer] Apps Indication:Nonsmoker Start:06-May-2021 Instruction Type:Patient Education Patient Instructions Indication:Nonsmoker Start:08-Apr-2021 Instruction Type:Provider Instructions for Treatment How to Access Health Informa tion Online using Patient Portal and [employer] Apps Indication:Nonsmoker Start:08-Apr-2021 Instruction Type:Patient Education Patient Instructions Indication:BMI 23.0-23.9, adult Start:20-Mar-2021 Instruction Type:Provider Instructions for Treatment How to Access Health Informa tion Online using Patient Portal and [employer] Apps Indication:BMI 23.0-23.9, adult Start:20-Mar-2021 Instruction Type:Patient Education Patient Instructions Indication:Nonsmoker Start:18-Mar-2021 Instruction Type:Provider Instructions for Treatment How to Access Health Informa tion Online using Patient Portal and [employer] Apps Indication:Nonsmoker Start:18-Mar-2021 Instruction Type:Patient Education Patient Instructions Indication:Nonsmoker Start:06-Feb-2021 Instruction Type:Provider Instructions for Treatment How to Access Health Informa tion Online using Patient Portal and [employer] Apps Indication:Nonsmoker Start:06-Feb-2021 Instruction Type:Patient Education Patient Instructions Indication:Nonsmoker Start:06-Oct-2020 Instruction Type:Provider Instructions for Treatment How to Access Health Informa tion Online using Patient Portal and [employer] Apps Indication:Nonsmoker Start:06-Oct-2020 Instruction Type:Patient Education Patient Instructions Indication:BMI 22.0-22.9, adult Start:29-Jul-2020 Instruction Type:Provider Instructions for Treatment How to Access Health Informa tion Online using Patient Portal and [employer] Apps Indication:Nonsmoker Start:29-Jul-2020 Instruction Type:Patient Education Patient Instructions Indication:Nonsmoker Start:15-Jul-2020 Instruction Type:Provider Instructions for Treatment How to Access Health Informa tion Online using Patient Portal and [employer] Indication:Nonsmoker Start:15-Jul-2020 Instruction Type:Patient Education [facility]; [facility] Work Phone: Instructions* Name Dates Details Patient Instructions Indication:Sore throat Start:23-Aug-2022 Instruction Type:Provider Instructions for Treatment How to Access Health Informa tion Online using Patient Portal and [employer] Apps Indication:Sore throat Start:23-Aug-2022 Instruction Type:Patient Education Patient Instructions Indication:Nonsmoker Start:02-Aug-2022 Instruction Type:Provider Instructions for Treatment How to Access Health Informa tion Online using Patient Portal and [employer] Apps Indication:Nonsmoker Start:02-Aug-2022 Instruction Type:Patient Education Patient Instructions Indication:BMI 23.0-23.9, adult Start:16-Apr-2022 Instruction Type:Provider Instructions for Treatment How to Access Health Informa tion Online using Patient Portal and [employer] Apps Indication:BMI 23.0-23.9, adult Start:16-Apr-2022 Instruction Type:Patient Education Patient Instructions Indication:BMI 23.0-23.9, adult Start:07-Apr-2022 Instruction Type:Provider Instructions for Treatment How to Access Health Informa tion Online using Patient Portal and [employer] Indication:BMI 23.0-23.9, adult Start:07-Apr-2022 Instruction Type:Patient Education Patient Instructions Indication:BMI 23.0-23.9, adult Start:19-Mar-2022 Instruction Type:Provider Instructions for Treatment How to Access Health Informa tion Online using Patient Portal and [employer] Indication:BMI 23.0-23.9, adult Start:19-Mar-2022 Instruction Type:Patient Education Patient Instructions Indication:Nonsmoker Start:30-Dec-2021 Instruction Type:Provider Instructions for Treatment How to Access Health Informa tion Online using Patient Portal and [employer] Indication:Nonsmoker Start:30-Dec-2021 Instruction Type:Patient Education Patient Instructions Indication:BMI 23.0-23.9, adult Start:14-Dec-2021 Instruction Type:Provider Instructions for Treatment How to Access Health Informa tion Online using Patient Portal and [employer] Indication:BMI 23.0-23.9, adult Start:14-Dec-2021 Instruction Type:Patient Education Patient Instructions Indication:Nonsmoker Start:13-Nov-2021 Instruction Type:Provider Instructions for Treatment How to Access Health Informa tion Online using Patient Portal and [employer] Apps Indication:Nonsmoker Start:13-Nov-2021 Instruction Type:Patient Education Patient Instructions Indication:BMI 23.0-23.9, adult Start:19-Oct-2021 Instruction Type:Provider Instructions for Treatment How to Access Health Informa tion Online using Patient Portal and [employer] Indication:BMI 23.0-23.9, adult Start:19-Oct-2021 Instruction Type:Patient Education Patient Instructions Indication:BMI 23.0-23.9, adult Start:30-Sep-2021 Instruction Type:Provider Instructions for Treatment How to Access Health Informa tion Online using Patient Portal and [employer] Apps Indication:BMI 23.0-23.9, adult Start:30-Sep-2021 Instruction Type:Patient Education Patient Instructions Indication:UTI symptoms Start:15-Sep-2021 Instruction Type:Provider Instructions for Treatment How to Access Health Informa tion Online using Patient Portal and [employer] Apps Indication:UTI symptoms Start:15-Sep-2021 Instruction Type:Patient Education Patient Instructions Indication:BMI 22.0-22.9, adult Start:27-Aug-2021 Instruction Type:Provider Instructions for Treatment How to Access Health Informa tion Online using Patient Portal and [employer] Apps Indication:BMI 22.0-22.9, adult Start:27-Aug-2021 Instruction Type:Patient Education Patient Instructions Indication:Impaired fasting glucose Start:12-Aug-2021 Instruction Type:Provider Instructions for Treatment How to Access Health Informa tion Online using Patient Portal and [employer] Apps Indication:Impaired fasting glucose Start:12-Aug-2021 Instruction Type:Patient Education Patient Instructions Indication:Splinter of foot Start:03-Jul-2021 Instruction Type:Provider Instructions for Treatment How to Access Health Informa tion Online using Patient Portal and [employer] Apps Indication:Splinter of foot Start:03-Jul-2021 Instruction Type:Patient Education Patient Instructions Indication:BMI 23.0-23.9, adult Start:27-May-2021 Instruction Type:Provider Instructions for Treatment How to Access Health Informa tion Online using Patient Portal and [employer] Apps Indication:BMI 23.0-23.9, adult Start:27-May-2021 Instruction Type:Patient Education Patient Instructions Indication:Nonsmoker Start:13-May-2021 Instruction Type:Provider Instructions for Treatment How to Access Health Informa tion Online using Patient Portal and [employer] Apps Indication:Nonsmoker Start:13-May-2021 Instruction Type:Patient Education Patient Instructions Indication:Nonsmoker Start:06-May-2021 Instruction Type:Provider Instructions for Treatment How to Access Health Informa tion Online using Patient Portal and [employer] Apps Indication:Nonsmoker Start:06-May-2021 Instruction Type:Patient Education Patient Instructions Indication:Nonsmoker Start:08-Apr-2021 Instruction Type:Provider Instructions for Treatment How to Access Health Informa tion Online using Patient Portal and [employer] Apps Indication:Nonsmoker Start:08-Apr-2021 Instruction Type:Patient Education Patient Instructions Indication:BMI 23.0-23.9, adult Start:20-Mar-2021 Instruction Type:Provider Instructions for Treatment How to Access Health Informa tion Online using Patient Portal and [employer] Indication:BMI 23.0-23.9, adult Start:20-Mar-2021 Instruction Type:Patient Education Patient Instructions Indication:Nonsmoker Start:18-Mar-2021 Instruction Type:Provider Instructions for Treatment How to Access Health Informa tion Online using Patient Portal and [employer] Indication:Nonsmoker Start:18-Mar-2021 Instruction Type:Patient Education Patient Instructions Indication:Nonsmoker Start:06-Feb-2021 Instruction Type:Provider Instructions for Treatment How to Access Health Informa tion Online using Patient Portal and [employer] Indication:Nonsmoker Start:06-Feb-2021 Instruction Type:Patient Education Patient Instructions Indication:Nonsmoker Start:06-Oct-2020 Instruction Type:Provider Instructions for Treatment How to Access Health Informa tion Online using Patient Portal and [employer] Apps Indication:Nonsmoker Start:06-Oct-2020 Instruction Type:Patient Education Patient Instructions Indication:BMI 22.0-22.9, adult Start:29-Jul-2020 Instruction Type:Provider Instructions for Treatment How to Access Health Informa tion Online using Patient Portal and [employer] Apps Indication:Nonsmoker Start:29-Jul-2020 Instruction Type:Patient Education Patient Instructions Indication:Nonsmoker Start:15-Jul-2020 Instruction Type:Provider Instructions for Treatment How to Access Health Informa tion Online using Patient Portal and [employer] Apps Indication:Nonsmoker Start:15-Jul-2020 Instruction Type:Patient Education [facility]; [facility] Work Phone: Instructions* Name Dates Details Patient Instructions Indication:Sore throat Start:23-Aug-2022 Instruction Type:Provider Instructions for Treatment How to Access Health Informa tion Online using Patient Portal and [employer] Apps Indication:Sore throat Start:23-Aug-2022 Instruction Type:Patient Education Patient Instructions Indication:Nonsmoker Start:02-Aug-2022 Instruction Type:Provider Instructions for Treatment How to Access Health Informa tion Online using Patient Portal and [employer] Apps Indication:Nonsmoker Start:02-Aug-2022 Instruction Type:Patient Education Patient Instructions Indication:BMI 23.0-23.9, adult Start:16-Apr-2022 Instruction Type:Provider Instructions for Treatment How to Access Health Informa tion Online using Patient Portal and [employer] Apps Indication:BMI 23.0-23.9, adult Start:16-Apr-2022 Instruction Type:Patient Education Patient Instructions Indication:BMI 23.0-23.9, adult Start:07-Apr-2022 Instruction Type:Provider Instructions for Treatment How to Access Health Informa tion Online using Patient Portal and [employer] Apps Indication:BMI 23.0-23.9, adult Start:07-Apr-2022 Instruction Type:Patient Education Patient Instructions Indication:BMI 23.0-23.9, adult Start:19-Mar-2022 Instruction Type:Provider Instructions for Treatment How to Access Health Informa tion Online using Patient Portal and [employer] Apps Indication:BMI 23.0-23.9, adult Start:19-Mar-2022 Instruction Type:Patient Education Patient Instructions Indication:Nonsmoker Start:30-Dec-2021 Instruction Type:Provider Instructions for Treatment How to Access Health Informa tion Online using Patient Portal and [employer] Apps Indication:Nonsmoker Start:30-Dec-2021 Instruction Type:Patient Education Patient Instructions Indication:BMI 23.0-23.9, adult Start:14-Dec-2021 Instruction Type:Provider Instructions for Treatment How to Access Health Informa tion Online using Patient Portal and [employer] Apps Indication:BMI 23.0-23.9, adult Start:14-Dec-2021 Instruction Type:Patient Education Patient Instructions Indication:Nonsmoker Start:13-Nov-2021 Instruction Type:Provider Instructions for Treatment How to Access Health Informa tion Online using Patient Portal and [employer] Apps Indication:Nonsmoker Start:13-Nov-2021 Instruction Type:Patient Education Patient Instructions Indication:BMI 23.0-23.9, adult Start:19-Oct-2021 Instruction Type:Provider Instructions for Treatment How to Access Health Informa tion Online using Patient Portal and [employer] Apps Indication:BMI 23.0-23.9, adult Start:19-Oct-2021 Instruction Type:Patient Education Patient Instructions Indication:BMI 23.0-23.9, adult Start:30-Sep-2021 Instruction Type:Provider Instructions for Treatment How to Access Health Informa tion Online using Patient Portal and [employer] Apps Indication:BMI 23.0-23.9, adult Start:30-Sep-2021 Instruction Type:Patient Education Patient Instructions Indication:UTI symptoms Start:15-Sep-2021 Instruction Type:Provider Instructions for Treatment How to Access Health Informa tion Online using Patient Portal and [employer] Apps Indication:UTI symptoms Start:15-Sep-2021 Instruction Type:Patient Education Patient Instructions Indication:BMI 22.0-22.9, adult Start:27-Aug-2021 Instruction Type:Provider Instructions for Treatment How to Access Health Informa tion Online using Patient Portal and [employer] Apps Indication:BMI 22.0-22.9, adult Start:27-Aug-2021 Instruction Type:Patient Education Patient Instructions Indication:Impaired fasting glucose Start:12-Aug-2021 Instruction Type:Provider Instructions for Treatment How to Access Health Informa tion Online using Patient Portal and [employer] Apps Indication:Impaired fasting glucose Start:12-Aug-2021 Instruction Type:Patient Education Patient Instructions Indication:Splinter of foot Start:03-Jul-2021 Instruction Type:Provider Instructions for Treatment How to Access Health Informa tion Online using Patient Portal and [employer] Apps Indication:Splinter of foot Start:03-Jul-2021 Instruction Type:Patient Education Patient Instructions Indication:BMI 23.0-23.9, adult Start:27-May-2021 Instruction Type:Provider Instructions for Treatment How to Access Health Informa tion Online using Patient Portal and [employer] Apps Indication:BMI 23.0-23.9, adult Start:27-May-2021 Instruction Type:Patient Education Patient Instructions Indication:Nonsmoker Start:13-May-2021 Instruction Type:Provider Instructions for Treatment How to Access Health Informa tion Online using Patient Portal and [employer] Apps Indication:Nonsmoker Start:13-May-2021 Instruction Type:Patient Education Patient Instructions Indication:Nonsmoker Start:06-May-2021 Instruction Type:Provider Instructions for Treatment How to Access Health Informa tion Online using Patient Portal and [employer] Apps Indication:Nonsmoker Start:06-May-2021 Instruction Type:Patient Education Patient Instructions Indication:Nonsmoker Start:08-Apr-2021 Instruction Type:Provider Instructions for Treatment How to Access Health Informa tion Online using Patient Portal and [employer] Apps Indication:Nonsmoker Start:08-Apr-2021 Instruction Type:Patient Education Patient Instructions Indication:BMI 23.0-23.9, adult Start:20-Mar-2021 Instruction Type:Provider Instructions for Treatment How to Access Health Informa tion Online using Patient Portal and [employer] Apps Indication:BMI 23.0-23.9, adult Start:20-Mar-2021 Instruction Type:Patient Education Patient Instructions Indication:Nonsmoker Start:18-Mar-2021 Instruction Type:Provider Instructions for Treatment How to Access Health Informa tion Online using Patient Portal and [employer] Apps Indication:Nonsmoker Start:18-Mar-2021 Instruction Type:Patient Education Patient Instructions Indication:Nonsmoker Start:06-Feb-2021 Instruction Type:Provider Instructions for Treatment How to Access Health Informa tion Online using Patient Portal and [employer] Apps Indication:Nonsmoker Start:06-Feb-2021 Instruction Type:Patient Education Patient Instructions Indication:Nonsmoker Start:06-Oct-2020 Instruction Type:Provider Instructions for Treatment How to Access Health Informa tion Online using Patient Portal and [employer] Apps Indication:Nonsmoker Start:06-Oct-2020 Instruction Type:Patient Education Patient Instructions Indication:BMI 22.0-22.9, adult Start:29-Jul-2020 Instruction Type:Provider Instructions for Treatment How to Access Health Informa tion Online using Patient Portal and [employer] Apps Indication:Nonsmoker Start:29-Jul-2020 Instruction Type:Patient Education Patient Instructions Indication:Nonsmoker Start:15-Jul-2020 Instruction Type:Provider Instructions for Treatment How to Access Health Informa tion Online using Patient Portal and [employer] Apps Indication:Nonsmoker Start:15-Jul-2020 Instruction Type:Patient Education [facility]; [facility] Work Phone: Instructions* Name Dates Details Patient Instructions Indication:Nonsmoker Start:15-Oct-2022 Instruction Type:Provider Instructions for Treatment How to Access Health Informa tion Online using Patient Portal and [employer] Apps Indication:Nonsmoker Start:15-Oct-2022 Instruction Type:Patient Education Patient Instructions Indication:Sore throat Start:23-Aug-2022 Instruction Type:Provider Instructions for Treatment How to Access Health Informa tion Online using Patient Portal and [employer] Apps Indication:Sore throat Start:23-Aug-2022 Instruction Type:Patient Education Patient Instructions Indication:Nonsmoker Start:02-Aug-2022 Instruction Type:Provider Instructions for Treatment How to Access Health Informa tion Online using Patient Portal and [employer] Apps Indication:Nonsmoker Start:02-Aug-2022 Instruction Type:Patient Education Patient Instructions Indication:BMI 23.0-23.9, adult Start:16-Apr-2022 Instruction Type:Provider Instructions for Treatment How to Access Health Informa tion Online using Patient Portal and [employer] Apps Indication:BMI 23.0-23.9, adult Start:16-Apr-2022 Instruction Type:Patient Education Patient Instructions Indication:BMI 23.0-23.9, adult Start:07-Apr-2022 Instruction Type:Provider Instructions for Treatment How to Access Health Informa tion Online using Patient Portal and [employer] Apps Indication:BMI 23.0-23.9, adult Start:07-Apr-2022 Instruction Type:Patient Education Patient Instructions Indication:BMI 23.0-23.9, adult Start:19-Mar-2022 Instruction Type:Provider Instructions for Treatment How to Access Health Informa tion Online using Patient Portal and [employer] Apps Indication:BMI 23.0-23.9, adult Start:19-Mar-2022 Instruction Type:Patient Education Patient Instructions Indication:Nonsmoker Start:30-Dec-2021 Instruction Type:Provider Instructions for Treatment How to Access Health Informa tion Online using Patient Portal and [employer] Apps Indication:Nonsmoker Start:30-Dec-2021 Instruction Type:Patient Education Patient Instructions Indication:BMI 23.0-23.9, adult Start:14-Dec-2021 Instruction Type:Provider Instructions for Treatment How to Access Health Informa tion Online using Patient Portal and [employer] Apps Indication:BMI 23.0-23.9, adult Start:14-Dec-2021 Instruction Type:Patient Education Patient Instructions Indication:Nonsmoker Start:13-Nov-2021 Instruction Type:Provider Instructions for Treatment How to Access Health Informa tion Online using Patient Portal and [employer] Apps Indication:Nonsmoker Start:13-Nov-2021 Instruction Type:Patient Education Patient Instructions Indication:BMI 23.0-23.9, adult Start:19-Oct-2021 Instruction Type:Provider Instructions for Treatment How to Access Health Informa tion Online using Patient Portal and [employer] Apps Indication:BMI 23.0-23.9, adult Start:19-Oct-2021 Instruction Type:Patient Education Patient Instructions Indication:BMI 23.0-23.9, adult Start:30-Sep-2021 Instruction Type:Provider Instructions for Treatment How to Access Health Informa tion Online using Patient Portal and [employer] Apps Indication:BMI 23.0-23.9, adult Start:30-Sep-2021 Instruction Type:Patient Education Patient Instructions Indication:UTI symptoms Start:15-Sep-2021 Instruction Type:Provider Instructions for Treatment How to Access Health Informa tion Online using Patient Portal and [employer] Apps Indication:UTI symptoms Start:15-Sep-2021 Instruction Type:Patient Education Patient Instructions Indication:BMI 22.0-22.9, adult Start:27-Aug-2021 Instruction Type:Provider Instructions for Treatment How to Access Health Informa tion Online using Patient Portal and [employer] Apps Indication:BMI 22.0-22.9, adult Start:27-Aug-2021 Instruction Type:Patient Education Patient Instructions Indication:Impaired fasting glucose Start:12-Aug-2021 Instruction Type:Provider Instructions for Treatment How to Access Health Informa tion Online using Patient Portal and [employer] Apps Indication:Impaired fasting glucose Start:12-Aug-2021 Instruction Type:Patient Education Patient Instructions Indication:Splinter of foot Start:03-Jul-2021 Instruction Type:Provider Instructions for Treatment How to Access Health Informa tion Online using Patient Portal and [employer] Apps Indication:Splinter of foot Start:03-Jul-2021 Instruction Type:Patient Education Patient Instructions Indication:BMI 23.0-23.9, adult Start:27-May-2021 Instruction Type:Provider Instructions for Treatment How to Access Health Informa tion Online using Patient Portal and [employer] Apps Indication:BMI 23.0-23.9, adult Start:27-May-2021 Instruction Type:Patient Education Patient Instructions Indication:Nonsmoker Start:13-May-2021 Instruction Type:Provider Instructions for Treatment How to Access Health Informa tion Online using Patient Portal and [employer] Apps Indication:Nonsmoker Start:13-May-2021 Instruction Type:Patient Education Patient Instructions Indication:Nonsmoker Start:06-May-2021 Instruction Type:Provider Instructions for Treatment How to Access Health Informa tion Online using Patient Portal and [employer] Apps Indication:Nonsmoker Start:06-May-2021 Instruction Type:Patient Education Patient Instructions Indication:Nonsmoker Start:08-Apr-2021 Instruction Type:Provider Instructions for Treatment How to Access Health Informa tion Online using Patient Portal and [employer] Apps Indication:Nonsmoker Start:08-Apr-2021 Instruction Type:Patient Education Patient Instructions Indication:BMI 23.0-23.9, adult Start:20-Mar-2021 Instruction Type:Provider Instructions for Treatment How to Access Health Informa tion Online using Patient Portal and [employer] Indication:BMI 23.0-23.9, adult Start:20-Mar-2021 Instruction Type:Patient Education Patient Instructions Indication:Nonsmoker Start:18-Mar-2021 Instruction Type:Provider Instructions for Treatment How to Access Health Informa tion Online using Patient Portal and [employer] Apps Indication:Nonsmoker Start:18-Mar-2021 Instruction Type:Patient Education Patient Instructions Indication:Nonsmoker Start:06-Feb-2021 Instruction Type:Provider Instructions for Treatment How to Access Health Informa tion Online using Patient Portal and [employer] Apps Indication:Nonsmoker Start:06-Feb-2021 Instruction Type:Patient Education Patient Instructions Indication:Nonsmoker Start:06-Oct-2020 Instruction Type:Provider Instructions for Treatment How to Access Health Informa tion Online using Patient Portal and [employer] Apps Indication:Nonsmoker Start:06-Oct-2020 Instruction Type:Patient Education Patient Instructions Indication:BMI 22.0-22.9, adult Start:29-Jul-2020 Instruction Type:Provider Instructions for Treatment How to Access Health Informa tion Online using Patient Portal and [employer] Apps Indication:Nonsmoker Start:29-Jul-2020 Instruction Type:Patient Education Patient Instructions Indication:Nonsmoker Start:15-Jul-2020 Instruction Type:Provider Instructions for Treatment How to Access Health Informa tion Online using Patient Portal and [employer] Indication:Nonsmoker Start:15-Jul-2020 Instruction Type:Patient Education [facility]; [facility] Work Phone: Instructions* Name Dates Details Patient Instructions Indication:Nonsmoker Start:15-Oct-2022 Instruction Type:Provider Instructions for Treatment How to Access Health Informa tion Online using Patient Portal and [employer] Apps Indication:Nonsmoker Start:15-Oct-2022 Instruction Type:Patient Education Patient Instructions Indication:Sore throat Start:23-Aug-2022 Instruction Type:Provider Instructions for Treatment How to Access Health Informa tion Online using Patient Portal and [employer] Apps Indication:Sore throat Start:23-Aug-2022 Instruction Type:Patient Education Patient Instructions Indication:Nonsmoker Start:02-Aug-2022 Instruction Type:Provider Instructions for Treatment How to Access Health Informa tion Online using Patient Portal and [employer] Apps Indication:Nonsmoker Start:02-Aug-2022 Instruction Type:Patient Education Patient Instructions Indication:BMI 23.0-23.9, adult Start:16-Apr-2022 Instruction Type:Provider Instructions for Treatment How to Access Health Informa tion Online using Patient Portal and [employer] Indication:BMI 23.0-23.9, adult Start:16-Apr-2022 Instruction Type:Patient Education Patient Instructions Indication:BMI 23.0-23.9, adult Start:07-Apr-2022 Instruction Type:Provider Instructions for Treatment How to Access Health Informa tion Online using Patient Portal and [employer] Apps Indication:BMI 23.0-23.9, adult Start:07-Apr-2022 Instruction Type:Patient Education Patient Instructions Indication:BMI 23.0-23.9, adult Start:19-Mar-2022 Instruction Type:Provider Instructions for Treatment How to Access Health Informa tion Online using Patient Portal and [employer] Apps Indication:BMI 23.0-23.9, adult Start:19-Mar-2022 Instruction Type:Patient Education Patient Instructions Indication:Nonsmoker Start:30-Dec-2021 Instruction Type:Provider Instructions for Treatment How to Access Health Informa tion Online using Patient Portal and [employer] Apps Indication:Nonsmoker Start:30-Dec-2021 Instruction Type:Patient Education Patient Instructions Indication:BMI 23.0-23.9, adult Start:14-Dec-2021 Instruction Type:Provider Instructions for Treatment How to Access Health Informa tion Online using Patient Portal and [employer] Indication:BMI 23.0-23.9, adult Start:14-Dec-2021 Instruction Type:Patient Education Patient Instructions Indication:Nonsmoker Start:13-Nov-2021 Instruction Type:Provider Instructions for Treatment How to Access Health Informa tion Online using Patient Portal and [employer] Apps Indication:Nonsmoker Start:13-Nov-2021 Instruction Type:Patient Education Patient Instructions Indication:BMI 23.0-23.9, adult Start:19-Oct-2021 Instruction Type:Provider Instructions for Treatment How to Access Health Informa tion Online using Patient Portal and [employer] Apps Indication:BMI 23.0-23.9, adult Start:19-Oct-2021 Instruction Type:Patient Education Patient Instructions Indication:BMI 23.0-23.9, adult Start:30-Sep-2021 Instruction Type:Provider Instructions for Treatment How to Access Health Informa tion Online using Patient Portal and [employer] Apps Indication:BMI 23.0-23.9, adult Start:30-Sep-2021 Instruction Type:Patient Education Patient Instructions Indication:UTI symptoms Start:15-Sep-2021 Instruction Type:Provider Instructions for Treatment How to Access Health Informa tion Online using Patient Portal and [employer] Apps Indication:UTI symptoms Start:15-Sep-2021 Instruction Type:Patient Education Patient Instructions Indication:BMI 22.0-22.9, adult Start:27-Aug-2021 Instruction Type:Provider Instructions for Treatment How to Access Health Informa tion Online using Patient Portal and [employer] Apps Indication:BMI 22.0-22.9, adult Start:27-Aug-2021 Instruction Type:Patient Education Patient Instructions Indication:Impaired fasting glucose Start:12-Aug-2021 Instruction Type:Provider Instructions for Treatment How to Access Health Informa tion Online using Patient Portal and [employer] Apps Indication:Impaired fasting glucose Start:12-Aug-2021 Instruction Type:Patient Education Patient Instructions Indication:Splinter of foot Start:03-Jul-2021 Instruction Type:Provider Instructions for Treatment How to Access Health Informa tion Online using Patient Portal and [employer] Apps Indication:Splinter of foot Start:03-Jul-2021 Instruction Type:Patient Education Patient Instructions Indication:BMI 23.0-23.9, adult Start:27-May-2021 Instruction Type:Provider Instructions for Treatment How to Access Health Informa tion Online using Patient Portal and [employer] Apps Indication:BMI 23.0-23.9, adult Start:27-May-2021 Instruction Type:Patient Education Patient Instructions Indication:Nonsmoker Start:13-May-2021 Instruction Type:Provider Instructions for Treatment How to Access Health Informa tion Online using Patient Portal and [employer] Apps Indication:Nonsmoker Start:13-May-2021 Instruction Type:Patient Education Patient Instructions Indication:Nonsmoker Start:06-May-2021 Instruction Type:Provider Instructions for Treatment How to Access Health Informa tion Online using Patient Portal and [employer] Indication:Nonsmoker Start:06-May-2021 Instruction Type:Patient Education Patient Instructions Indication:Nonsmoker Start:08-Apr-2021 Instruction Type:Provider Instructions for Treatment How to Access Health Informa tion Online using Patient Portal and [employer] Indication:Nonsmoker Start:08-Apr-2021 Instruction Type:Patient Education Patient Instructions Indication:BMI 23.0-23.9, adult Start:20-Mar-2021 Instruction Type:Provider Instructions for Treatment How to Access Health Informa tion Online using Patient Portal and [employer] Indication:BMI 23.0-23.9, adult Start:20-Mar-2021 Instruction Type:Patient Education Patient Instructions Indication:Nonsmoker Start:18-Mar-2021 Instruction Type:Provider Instructions for Treatment How to Access Health Informa tion Online using Patient Portal and [employer] Indication:Nonsmoker Start:18-Mar-2021 Instruction Type:Patient Education Patient Instructions Indication:Nonsmoker Start:06-Feb-2021 Instruction Type:Provider Instructions for Treatment How to Access Health Informa tion Online using Patient Portal and [employer] Indication:Nonsmoker Start:06-Feb-2021 Instruction Type:Patient Education Patient Instructions Indication:Nonsmoker Start:06-Oct-2020 Instruction Type:Provider Instructions for Treatment How to Access Health Informa tion Online using Patient Portal and [employer] Indication:Nonsmoker Start:06-Oct-2020 Instruction Type:Patient Education Patient Instructions Indication:BMI 22.0-22.9, adult Start:29-Jul-2020 Instruction Type:Provider Instructions for Treatment How to Access Health Informa tion Online using Patient Portal and [employer] Indication:Nonsmoker Start:29-Jul-2020 Instruction Type:Patient Education Patient Instructions Indication:Nonsmoker Start:15-Jul-2020 Instruction Type:Provider Instructions for Treatment How to Access Health Informa tion Online using Patient Portal and [employer] Indication:Nonsmoker Start:15-Jul-2020 Instruction Type:Patient Education [facility]; [facility] Work Phone: Instructions* Name Dates Details Patient Instructions Indication:Nonsmoker Start:15-Oct-2022 Instruction Type:Provider Instructions for Treatment How to Access Health Informa tion Online using Patient Portal and [employer] Indication:Nonsmoker Start:15-Oct-2022 Instruction Type:Patient Education Patient Instructions Indication:Sore throat Start:23-Aug-2022 Instruction Type:Provider Instructions for Treatment How to Access Health Informa tion Online using Patient Portal and [employer] Indication:Sore throat Start:23-Aug-2022 Instruction Type:Patient Education Patient Instructions Indication:Nonsmoker Start:02-Aug-2022 Instruction Type:Provider Instructions for Treatment How to Access Health Informa tion Online using Patient Portal and [employer] Indication:Nonsmoker Start:02-Aug-2022 Instruction Type:Patient Education Patient Instructions Indication:BMI 23.0-23.9, adult Start:16-Apr-2022 Instruction Type:Provider Instructions for Treatment How to Access Health Informa tion Online using Patient Portal and [employer] Apps Indication:BMI 23.0-23.9, adult Start:16-Apr-2022 Instruction Type:Patient Education Patient Instructions Indication:BMI 23.0-23.9, adult Start:07-Apr-2022 Instruction Type:Provider Instructions for Treatment How to Access Health Informa tion Online using Patient Portal and [employer] Apps Indication:BMI 23.0-23.9, adult Start:07-Apr-2022 Instruction Type:Patient Education Patient Instructions Indication:BMI 23.0-23.9, adult Start:19-Mar-2022 Instruction Type:Provider Instructions for Treatment How to Access Health Informa tion Online using Patient Portal and [employer] Apps Indication:BMI 23.0-23.9, adult Start:19-Mar-2022 Instruction Type:Patient Education Patient Instructions Indication:Nonsmoker Start:30-Dec-2021 Instruction Type:Provider Instructions for Treatment How to Access Health Informa tion Online using Patient Portal and [employer] Apps Indication:Nonsmoker Start:30-Dec-2021 Instruction Type:Patient Education Patient Instructions Indication:BMI 23.0-23.9, adult Start:14-Dec-2021 Instruction Type:Provider Instructions for Treatment How to Access Health Informa tion Online using Patient Portal and [employer] Apps Indication:BMI 23.0-23.9, adult Start:14-Dec-2021 Instruction Type:Patient Education Patient Instructions Indication:Nonsmoker Start:13-Nov-2021 Instruction Type:Provider Instructions for Treatment How to Access Health Informa tion Online using Patient Portal and [employer] Apps Indication:Nonsmoker Start:13-Nov-2021 Instruction Type:Patient Education Patient Instructions Indication:BMI 23.0-23.9, adult Start:19-Oct-2021 Instruction Type:Provider Instructions for Treatment How to Access Health Informa tion Online using Patient Portal and [employer] Apps Indication:BMI 23.0-23.9, adult Start:19-Oct-2021 Instruction Type:Patient Education Patient Instructions Indication:BMI 23.0-23.9, adult Start:30-Sep-2021 Instruction Type:Provider Instructions for Treatment How to Access Health Informa tion Online using Patient Portal and [employer] Apps Indication:BMI 23.0-23.9, adult Start:30-Sep-2021 Instruction Type:Patient Education Patient Instructions Indication:UTI symptoms Start:15-Sep-2021 Instruction Type:Provider Instructions for Treatment How to Access Health Informa tion Online using Patient Portal and [employer] Apps Indication:UTI symptoms Start:15-Sep-2021 Instruction Type:Patient Education Patient Instructions Indication:BMI 22.0-22.9, adult Start:27-Aug-2021 Instruction Type:Provider Instructions for Treatment How to Access Health Informa tion Online using Patient Portal and [employer] Apps Indication:BMI 22.0-22.9, adult Start:27-Aug-2021 Instruction Type:Patient Education Patient Instructions Indication:Impaired fasting glucose Start:12-Aug-2021 Instruction Type:Provider Instructions for Treatment How to Access Health Informa tion Online using Patient Portal and [employer] Apps Indication:Impaired fasting glucose Start:12-Aug-2021 Instruction Type:Patient Education Patient Instructions Indication:Splinter of foot Start:03-Jul-2021 Instruction Type:Provider Instructions for Treatment How to Access Health Informa tion Online using Patient Portal and [employer] Apps Indication:Splinter of foot Start:03-Jul-2021 Instruction Type:Patient Education Patient Instructions Indication:BMI 23.0-23.9, adult Start:27-May-2021 Instruction Type:Provider Instructions for Treatment How to Access Health Informa tion Online using Patient Portal and [employer] Apps Indication:BMI 23.0-23.9, adult Start:27-May-2021 Instruction Type:Patient Education Patient Instructions Indication:Nonsmoker Start:13-May-2021 Instruction Type:Provider Instructions for Treatment How to Access Health Informa tion Online using Patient Portal and [employer] Apps Indication:Nonsmoker Start:13-May-2021 Instruction Type:Patient Education Patient Instructions Indication:Nonsmoker Start:06-May-2021 Instruction Type:Provider Instructions for Treatment How to Access Health Informa tion Online using Patient Portal and [employer] Apps Indication:Nonsmoker Start:06-May-2021 Instruction Type:Patient Education Patient Instructions Indication:Nonsmoker Start:08-Apr-2021 Instruction Type:Provider Instructions for Treatment How to Access Health Informa tion Online using Patient Portal and [employer] Apps Indication:Nonsmoker Start:08-Apr-2021 Instruction Type:Patient Education Patient Instructions Indication:BMI 23.0-23.9, adult Start:20-Mar-2021 Instruction Type:Provider Instructions for Treatment How to Access Health Informa tion Online using Patient Portal and [employer] Apps Indication:BMI 23.0-23.9, adult Start:20-Mar-2021 Instruction Type:Patient Education Patient Instructions Indication:Nonsmoker Start:18-Mar-2021 Instruction Type:Provider Instructions for Treatment How to Access Health Informa tion Online using Patient Portal and [employer] Apps Indication:Nonsmoker Start:18-Mar-2021 Instruction Type:Patient Education Patient Instructions Indication:Nonsmoker Start:06-Feb-2021 Instruction Type:Provider Instructions for Treatment How to Access Health Informa tion Online using Patient Portal and [employer] Apps Indication:Nonsmoker Start:06-Feb-2021 Instruction Type:Patient Education Patient Instructions Indication:Nonsmoker Start:06-Oct-2020 Instruction Type:Provider Instructions for Treatment How to Access Health Informa tion Online using Patient Portal and [employer] Apps Indication:Nonsmoker Start:06-Oct-2020 Instruction Type:Patient Education Patient Instructions Indication:BMI 22.0-22.9, adult Start:29-Jul-2020 Instruction Type:Provider Instructions for Treatment How to Access Health Informa tion Online using Patient Portal and [employer] Apps Indication:Nonsmoker Start:29-Jul-2020 Instruction Type:Patient Education Patient Instructions Indication:Nonsmoker Start:15-Jul-2020 Instruction Type:Provider Instructions for Treatment How to Access Health Informa tion Online using Patient Portal and [employer] Apps Indication:Nonsmoker Start:15-Jul-2020 Instruction Type:Patient Education [facility]; [facility] Work Phone: Instructions* Name Dates Details Patient Instructions Indication:Nonsmoker Start:15-Oct-2022 Instruction Type:Provider Instructions for Treatment How to Access Health Informa tion Online using Patient Portal and [employer] Apps Indication:Nonsmoker Start:15-Oct-2022 Instruction Type:Patient Education Patient Instructions Indication:Sore throat Start:23-Aug-2022 Instruction Type:Provider Instructions for Treatment How to Access Health Informa tion Online using Patient Portal and [employer] Apps Indication:Sore throat Start:23-Aug-2022 Instruction Type:Patient Education Patient Instructions Indication:Nonsmoker Start:02-Aug-2022 Instruction Type:Provider Instructions for Treatment How to Access Health Informa tion Online using Patient Portal and [employer] Apps Indication:Nonsmoker Start:02-Aug-2022 Instruction Type:Patient Education Patient Instructions Indication:BMI 23.0-23.9, adult Start:16-Apr-2022 Instruction Type:Provider Instructions for Treatment How to Access Health Informa tion Online using Patient Portal and [employer] Apps Indication:BMI 23.0-23.9, adult Start:16-Apr-2022 Instruction Type:Patient Education Patient Instructions Indication:BMI 23.0-23.9, adult Start:07-Apr-2022 Instruction Type:Provider Instructions for Treatment How to Access Health Informa tion Online using Patient Portal and [employer] Apps Indication:BMI 23.0-23.9, adult Start:07-Apr-2022 Instruction Type:Patient Education Patient Instructions Indication:BMI 23.0-23.9, adult Start:19-Mar-2022 Instruction Type:Provider Instructions for Treatment How to Access Health Informa tion Online using Patient Portal and [employer] Apps Indication:BMI 23.0-23.9, adult Start:19-Mar-2022 Instruction Type:Patient Education Patient Instructions Indication:Nonsmoker Start:30-Dec-2021 Instruction Type:Provider Instructions for Treatment How to Access Health Informa tion Online using Patient Portal and [employer] Apps Indication:Nonsmoker Start:30-Dec-2021 Instruction Type:Patient Education Patient Instructions Indication:BMI 23.0-23.9, adult Start:14-Dec-2021 Instruction Type:Provider Instructions for Treatment How to Access Health Informa tion Online using Patient Portal and [employer] Apps Indication:BMI 23.0-23.9, adult Start:14-Dec-2021 Instruction Type:Patient Education Patient Instructions Indication:Nonsmoker Start:13-Nov-2021 Instruction Type:Provider Instructions for Treatment How to Access Health Informa tion Online using Patient Portal and [employer] Apps Indication:Nonsmoker Start:13-Nov-2021 Instruction Type:Patient Education Patient Instructions Indication:BMI 23.0-23.9, adult Start:19-Oct-2021 Instruction Type:Provider Instructions for Treatment How to Access Health Informa tion Online using Patient Portal and [employer] Indication:BMI 23.0-23.9, adult Start:19-Oct-2021 Instruction Type:Patient Education Patient Instructions Indication:BMI 23.0-23.9, adult Start:30-Sep-2021 Instruction Type:Provider Instructions for Treatment How to Access Health Informa tion Online using Patient Portal and [employer] Apps Indication:BMI 23.0-23.9, adult Start:30-Sep-2021 Instruction Type:Patient Education Patient Instructions Indication:UTI symptoms Start:15-Sep-2021 Instruction Type:Provider Instructions for Treatment How to Access Health Informa tion Online using Patient Portal and [employer] Apps Indication:UTI symptoms Start:15-Sep-2021 Instruction Type:Patient Education Patient Instructions Indication:BMI 22.0-22.9, adult Start:27-Aug-2021 Instruction Type:Provider Instructions for Treatment How to Access Health Informa tion Online using Patient Portal and [employer] Apps Indication:BMI 22.0-22.9, adult Start:27-Aug-2021 Instruction Type:Patient Education Patient Instructions Indication:Impaired fasting glucose Start:12-Aug-2021 Instruction Type:Provider Instructions for Treatment How to Access Health Informa tion Online using Patient Portal and [employer] Apps Indication:Impaired fasting glucose Start:12-Aug-2021 Instruction Type:Patient Education Patient Instructions Indication:Splinter of foot Start:03-Jul-2021 Instruction Type:Provider Instructions for Treatment How to Access Health Informa tion Online using Patient Portal and [employer] Apps Indication:Splinter of foot Start:03-Jul-2021 Instruction Type:Patient Education Patient Instructions Indication:BMI 23.0-23.9, adult Start:27-May-2021 Instruction Type:Provider Instructions for Treatment How to Access Health Informa tion Online using Patient Portal and [employer] Apps Indication:BMI 23.0-23.9, adult Start:27-May-2021 Instruction Type:Patient Education Patient Instructions Indication:Nonsmoker Start:13-May-2021 Instruction Type:Provider Instructions for Treatment How to Access Health Informa tion Online using Patient Portal and [employer] Apps Indication:Nonsmoker Start:13-May-2021 Instruction Type:Patient Education Patient Instructions Indication:Nonsmoker Start:06-May-2021 Instruction Type:Provider Instructions for Treatment How to Access Health Informa tion Online using Patient Portal and [employer] Apps Indication:Nonsmoker Start:06-May-2021 Instruction Type:Patient Education Patient Instructions Indication:Nonsmoker Start:08-Apr-2021 Instruction Type:Provider Instructions for Treatment How to Access Health Informa tion Online using Patient Portal and [employer] Apps Indication:Nonsmoker Start:08-Apr-2021 Instruction Type:Patient Education Patient Instructions Indication:BMI 23.0-23.9, adult Start:20-Mar-2021 Instruction Type:Provider Instructions for Treatment How to Access Health Informa tion Online using Patient Portal and [employer] Apps Indication:BMI 23.0-23.9, adult Start:20-Mar-2021 Instruction Type:Patient Education Patient Instructions Indication:Nonsmoker Start:18-Mar-2021 Instruction Type:Provider Instructions for Treatment How to Access Health Informa tion Online using Patient Portal and [employer] Apps Indication:Nonsmoker Start:18-Mar-2021 Instruction Type:Patient Education Patient Instructions Indication:Nonsmoker Start:06-Feb-2021 Instruction Type:Provider Instructions for Treatment How to Access Health Informa tion Online using Patient Portal and [employer] Apps Indication:Nonsmoker Start:06-Feb-2021 Instruction Type:Patient Education Patient Instructions Indication:Nonsmoker Start:06-Oct-2020 Instruction Type:Provider Instructions for Treatment How to Access Health Informa tion Online using Patient Portal and [employer] Apps Indication:Nonsmoker Start:06-Oct-2020 Instruction Type:Patient Education Patient Instructions Indication:BMI 22.0-22.9, adult Start:29-Jul-2020 Instruction Type:Provider Instructions for Treatment How to Access Health Informa tion Online using Patient Portal and [employer] Apps Indication:Nonsmoker Start:29-Jul-2020 Instruction Type:Patient Education Patient Instructions Indication:Nonsmoker Start:15-Jul-2020 Instruction Type:Provider Instructions for Treatment How to Access Health Informa tion Online using Patient Portal and [employer] Apps Indication:Nonsmoker Start:15-Jul-2020 Instruction Type:Patient Education [facility]; [facility] Work Phone: Instructions* Name Dates Details Patient Instructions Indication:Nonsmoker Start:15-Oct-2022 Instruction Type:Provider Instructions for Treatment How to Access Health Informa tion Online using Patient Portal and [employer] Apps Indication:Nonsmoker Start:15-Oct-2022 Instruction Type:Patient Education Patient Instructions Indication:Sore throat Start:23-Aug-2022 Instruction Type:Provider Instructions for Treatment How to Access Health Informa tion Online using Patient Portal and [employer] Apps Indication:Sore throat Start:23-Aug-2022 Instruction Type:Patient Education Patient Instructions Indication:Nonsmoker Start:02-Aug-2022 Instruction Type:Provider Instructions for Treatment How to Access Health Informa tion Online using Patient Portal and [employer] Apps Indication:Nonsmoker Start:02-Aug-2022 Instruction Type:Patient Education Patient Instructions Indication:BMI 23.0-23.9, adult Start:16-Apr-2022 Instruction Type:Provider Instructions for Treatment How to Access Health Informa tion Online using Patient Portal and [employer] Indication:BMI 23.0-23.9, adult Start:16-Apr-2022 Instruction Type:Patient Education Patient Instructions Indication:BMI 23.0-23.9, adult Start:07-Apr-2022 Instruction Type:Provider Instructions for Treatment How to Access Health Informa tion Online using Patient Portal and [employer] Indication:BMI 23.0-23.9, adult Start:07-Apr-2022 Instruction Type:Patient Education Patient Instructions Indication:BMI 23.0-23.9, adult Start:19-Mar-2022 Instruction Type:Provider Instructions for Treatment How to Access Health Informa tion Online using Patient Portal and [employer] Indication:BMI 23.0-23.9, adult Start:19-Mar-2022 Instruction Type:Patient Education Patient Instructions Indication:Nonsmoker Start:30-Dec-2021 Instruction Type:Provider Instructions for Treatment How to Access Health Informa tion Online using Patient Portal and [employer] Apps Indication:Nonsmoker Start:30-Dec-2021 Instruction Type:Patient Education Patient Instructions Indication:BMI 23.0-23.9, adult Start:14-Dec-2021 Instruction Type:Provider Instructions for Treatment How to Access Health Informa tion Online using Patient Portal and [employer] Apps Indication:BMI 23.0-23.9, adult Start:14-Dec-2021 Instruction Type:Patient Education Patient Instructions Indication:Nonsmoker Start:13-Nov-2021 Instruction Type:Provider Instructions for Treatment How to Access Health Informa tion Online using Patient Portal and [employer] Apps Indication:Nonsmoker Start:13-Nov-2021 Instruction Type:Patient Education Patient Instructions Indication:BMI 23.0-23.9, adult Start:19-Oct-2021 Instruction Type:Provider Instructions for Treatment How to Access Health Informa tion Online using Patient Portal and [employer] Apps Indication:BMI 23.0-23.9, adult Start:19-Oct-2021 Instruction Type:Patient Education Patient Instructions Indication:BMI 23.0-23.9, adult Start:30-Sep-2021 Instruction Type:Provider Instructions for Treatment How to Access Health Informa tion Online using Patient Portal and [employer] Apps Indication:BMI 23.0-23.9, adult Start:30-Sep-2021 Instruction Type:Patient Education Patient Instructions Indication:UTI symptoms Start:15-Sep-2021 Instruction Type:Provider Instructions for Treatment How to Access Health Informa tion Online using [employer] and [employer] Apps Indication:UTI symptoms Start:15-Sep-2021 Instruction Type:Patient Education Patient Instructions Indication:BMI 22.0-22.9, adult Start:27-Aug-2021 Instruction Type:Provider Instructions for Treatment How to Access Health Informa tion Online using Patient Portal and [employer] Apps Indication:BMI 22.0-22.9, adult Start:27-Aug-2021 Instruction Type:Patient Education Patient Instructions Indication:Impaired fasting glucose Start:12-Aug-2021 Instruction Type:Provider Instructions for Treatment How to Access Health Informa tion Online using Patient Portal and [employer] Apps Indication:Impaired fasting glucose Start:12-Aug-2021 Instruction Type:Patient Education Patient Instructions Indication:Splinter of foot Start:03-Jul-2021 Instruction Type:Provider Instructions for Treatment How to Access Health Informa tion Online using Patient Portal and [employer] Apps Indication:Splinter of foot Start:03-Jul-2021 Instruction Type:Patient Education Patient Instructions Indication:BMI 23.0-23.9, adult Start:27-May-2021 Instruction Type:Provider Instructions for Treatment How to Access Health Informa tion Online using Patient Portal and [employer] Indication:BMI 23.0-23.9, adult Start:27-May-2021 Instruction Type:Patient Education Patient Instructions Indication:Nonsmoker Start:13-May-2021 Instruction Type:Provider Instructions for Treatment How to Access Health Informa tion Online using Patient Portal and [employer] Apps Indication:Nonsmoker Start:13-May-2021 Instruction Type:Patient Education Patient Instructions Indication:Nonsmoker Start:06-May-2021 Instruction Type:Provider Instructions for Treatment How to Access Health Informa tion Online using Patient Portal and [employer] Apps Indication:Nonsmoker Start:06-May-2021 Instruction Type:Patient Education Patient Instructions Indication:Nonsmoker Start:08-Apr-2021 Instruction Type:Provider Instructions for Treatment How to Access Health Informa tion Online using Patient Portal and [employer] Indication:Nonsmoker Start:08-Apr-2021 Instruction Type:Patient Education Patient Instructions Indication:BMI 23.0-23.9, adult Start:20-Mar-2021 Instruction Type:Provider Instructions for Treatment How to Access Health Informa tion Online using Patient Portal and [employer] Indication:BMI 23.0-23.9, adult Start:20-Mar-2021 Instruction Type:Patient Education Patient Instructions Indication:Nonsmoker Start:18-Mar-2021 Instruction Type:Provider Instructions for Treatment How to Access Health Informa tion Online using Patient Portal and [employer] Indication:Nonsmoker Start:18-Mar-2021 Instruction Type:Patient Education Patient Instructions Indication:Nonsmoker Start:06-Feb-2021 Instruction Type:Provider Instructions for Treatment How to Access Health Informa tion Online using Patient Portal and [employer] Indication:Nonsmoker Start:06-Feb-2021 Instruction Type:Patient Education Patient Instructions Indication:Nonsmoker Start:06-Oct-2020 Instruction Type:Provider Instructions for Treatment How to Access Health Informa tion Online using Patient Portal and [employer] Apps Indication:Nonsmoker Start:06-Oct-2020 Instruction Type:Patient Education Patient Instructions Indication:BMI 22.0-22.9, adult Start:29-Jul-2020 Instruction Type:Provider Instructions for Treatment How to Access Health Informa tion Online using Patient Portal and [employer] Indication:Nonsmoker Start:29-Jul-2020 Instruction Type:Patient Education Patient Instructions Indication:Nonsmoker Start:15-Jul-2020 Instruction Type:Provider Instructions for Treatment How to Access Health Informa tion Online using Patient Portal and [employer] Indication:Nonsmoker Start:15-Jul-2020 Instruction Type:Patient Education [facility]; [facility] Work Phone: Instructions* Name Dates Details How to Access Health Informa tion Online using Patient Portal and [employer] Indication:BMI 23.0-23.9, adult Start:28-Oct-2022 Instruction Type:Patient Education Patient Instructions Indication:BMI 23.0-23.9, adult Start:28-Oct-2022 Instruction Type:Provider Instructions for Treatment Patient Instructions Indication:Nonsmoker Start:15-Oct-2022 Instruction Type:Provider Instructions for Treatment How to Access Health Informa tion Online using Patient Portal and [employer] Indication:Nonsmoker Start:15-Oct-2022 Instruction Type:Patient Education Patient Instructions Indication:Sore throat Start:23-Aug-2022 Instruction Type:Provider Instructions for Treatment How to Access Health Informa tion Online using Patient Portal and [employer] Indication:Sore throat Start:23-Aug-2022 Instruction Type:Patient Education Patient Instructions Indication:Nonsmoker Start:02-Aug-2022 Instruction Type:Provider Instructions for Treatment How to Access Health Informa tion Online using Patient Portal and [employer] Indication:Nonsmoker Start:02-Aug-2022 Instruction Type:Patient Education Patient Instructions Indication:BMI 23.0-23.9, adult Start:16-Apr-2022 Instruction Type:Provider Instructions for Treatment How to Access Health Informa tion Online using Patient Portal and [employer] Indication:BMI 23.0-23.9, adult Start:16-Apr-2022 Instruction Type:Patient Education Patient Instructions Indication:BMI 23.0-23.9, adult Start:07-Apr-2022 Instruction Type:Provider Instructions for Treatment How to Access Health Informa tion Online using Patient Portal and [employer] Indication:BMI 23.0-23.9, adult Start:07-Apr-2022 Instruction Type:Patient Education Patient Instructions Indication:BMI 23.0-23.9, adult Start:19-Mar-2022 Instruction Type:Provider Instructions for Treatment How to Access Health Informa tion Online using Patient Portal and [employer] Indication:BMI 23.0-23.9, adult Start:19-Mar-2022 Instruction Type:Patient Education Patient Instructions Indication:Nonsmoker Start:30-Dec-2021 Instruction Type:Provider Instructions for Treatment How to Access Health Informa tion Online using Patient Portal and [employer] Indication:Nonsmoker Start:30-Dec-2021 Instruction Type:Patient Education Patient Instructions Indication:BMI 23.0-23.9, adult Start:14-Dec-2021 Instruction Type:Provider Instructions for Treatment How to Access Health Informa tion Online using Patient Portal and [employer] Indication:BMI 23.0-23.9, adult Start:14-Dec-2021 Instruction Type:Patient Education Patient Instructions Indication:Nonsmoker Start:13-Nov-2021 Instruction Type:Provider Instructions for Treatment How to Access Health Informa tion Online using Patient Portal and [employer] Apps Indication:Nonsmoker Start:13-Nov-2021 Instruction Type:Patient Education Patient Instructions Indication:BMI 23.0-23.9, adult Start:19-Oct-2021 Instruction Type:Provider Instructions for Treatment How to Access Health Informa tion Online using Patient Portal and [employer] Apps Indication:BMI 23.0-23.9, adult Start:19-Oct-2021 Instruction Type:Patient Education Patient Instructions Indication:BMI 23.0-23.9, adult Start:30-Sep-2021 Instruction Type:Provider Instructions for Treatment How to Access Health Informa tion Online using Patient Portal and [employer] Apps Indication:BMI 23.0-23.9, adult Start:30-Sep-2021 Instruction Type:Patient Education Patient Instructions Indication:UTI symptoms Start:15-Sep-2021 Instruction Type:Provider Instructions for Treatment How to Access Health Informa tion Online using Patient Portal and [employer] Apps Indication:UTI symptoms Start:15-Sep-2021 Instruction Type:Patient Education Patient Instructions Indication:BMI 22.0-22.9, adult Start:27-Aug-2021 Instruction Type:Provider Instructions for Treatment How to Access Health Informa tion Online using Patient Portal and [employer] Apps Indication:BMI 22.0-22.9, adult Start:27-Aug-2021 Instruction Type:Patient Education Patient Instructions Indication:Impaired fasting glucose Start:12-Aug-2021 Instruction Type:Provider Instructions for Treatment How to Access Health Informa tion Online using Patient Portal and [employer] Apps Indication:Impaired fasting glucose Start:12-Aug-2021 Instruction Type:Patient Education Patient Instructions Indication:Splinter of foot Start:03-Jul-2021 Instruction Type:Provider Instructions for Treatment How to Access Health Informa tion Online using Patient Portal and [employer] Apps Indication:Splinter of foot Start:03-Jul-2021 Instruction Type:Patient Education Patient Instructions Indication:BMI 23.0-23.9, adult Start:27-May-2021 Instruction Type:Provider Instructions for Treatment How to Access Health Informa tion Online using Patient Portal and [employer] Apps Indication:BMI 23.0-23.9, adult Start:27-May-2021 Instruction Type:Patient Education Patient Instructions Indication:Nonsmoker Start:13-May-2021 Instruction Type:Provider Instructions for Treatment How to Access Health Informa tion Online using Patient Portal and [employer] Apps Indication:Nonsmoker Start:13-May-2021 Instruction Type:Patient Education Patient Instructions Indication:Nonsmoker Start:06-May-2021 Instruction Type:Provider Instructions for Treatment How to Access Health Informa tion Online using Patient Portal and [employer] Apps Indication:Nonsmoker Start:06-May-2021 Instruction Type:Patient Education Patient Instructions Indication:Nonsmoker Start:08-Apr-2021 Instruction Type:Provider Instructions for Treatment How to Access Health Informa tion Online using Patient Portal and [employer] Apps Indication:Nonsmoker Start:08-Apr-2021 Instruction Type:Patient Education Patient Instructions Indication:BMI 23.0-23.9, adult Start:20-Mar-2021 Instruction Type:Provider Instructions for Treatment How to Access Health Informa tion Online using Patient Portal and [employer] Apps Indication:BMI 23.0-23.9, adult Start:20-Mar-2021 Instruction Type:Patient Education Patient Instructions Indication:Nonsmoker Start:18-Mar-2021 Instruction Type:Provider Instructions for Treatment How to Access Health Informa tion Online using Patient Portal and [employer] Apps Indication:Nonsmoker Start:18-Mar-2021 Instruction Type:Patient Education Patient Instructions Indication:Nonsmoker Start:06-Feb-2021 Instruction Type:Provider Instructions for Treatment How to Access Health Informa tion Online using Patient Portal and [employer] Apps Indication:Nonsmoker Start:06-Feb-2021 Instruction Type:Patient Education Patient Instructions Indication:Nonsmoker Start:06-Oct-2020 Instruction Type:Provider Instructions for Treatment How to Access Health Informa tion Online using Patient Portal and [employer] Apps Indication:Nonsmoker Start:06-Oct-2020 Instruction Type:Patient Education Patient Instructions Indication:BMI 22.0-22.9, adult Start:29-Jul-2020 Instruction Type:Provider Instructions for Treatment How to Access Health Informa tion Online using Patient Portal and [employer] Apps Indication:Nonsmoker Start:29-Jul-2020 Instruction Type:Patient Education Patient Instructions Indication:Nonsmoker Start:15-Jul-2020 Instruction Type:Provider Instructions for Treatment How to Access Health Informa tion Online using Patient Portal and [employer] Apps Indication:Nonsmoker Start:15-Jul-2020 Instruction Type:Patient Education [facility]; [facility] Work Phone: Instructions* Name Dates Details How to Access Health Informa tion Online using Patient Portal and [employer] Apps Indication:Nonsmoker Start:10-Nov-2022 Instruction Type:Patient Education Patient Instructions Indication:Nonsmoker Start:10-Nov-2022 Instruction Type:Provider Instructions for Treatment How to Access Health Informa tion Online using Patient Portal and [employer] Apps Indication:BMI 23.0-23.9, adult Start:28-Oct-2022 Instruction Type:Patient Education Patient Instructions Indication:BMI 23.0-23.9, adult Start:28-Oct-2022 Instruction Type:Provider Instructions for Treatment Patient Instructions Indication:Nonsmoker Start:15-Oct-2022 Instruction Type:Provider Instructions for Treatment How to Access Health Informa tion Online using Patient Portal and [employer] Apps Indication:Nonsmoker Start:15-Oct-2022 Instruction Type:Patient Education Patient Instructions Indication:Sore throat Start:23-Aug-2022 Instruction Type:Provider Instructions for Treatment How to Access Health Informa tion Online using Patient Portal and [employer] Apps Indication:Sore throat Start:23-Aug-2022 Instruction Type:Patient Education Patient Instructions Indication:Nonsmoker Start:02-Aug-2022 Instruction Type:Provider Instructions for Treatment How to Access Health Informa tion Online using Patient Portal and [employer] Apps Indication:Nonsmoker Start:02-Aug-2022 Instruction Type:Patient Education Patient Instructions Indication:BMI 23.0-23.9, adult Start:16-Apr-2022 Instruction Type:Provider Instructions for Treatment How to Access Health Informa tion Online using Patient Portal and [employer] Apps Indication:BMI 23.0-23.9, adult Start:16-Apr-2022 Instruction Type:Patient Education Patient Instructions Indication:BMI 23.0-23.9, adult Start:07-Apr-2022 Instruction Type:Provider Instructions for Treatment How to Access Health Informa tion Online using Patient Portal and [employer] Apps Indication:BMI 23.0-23.9, adult Start:07-Apr-2022 Instruction Type:Patient Education Patient Instructions Indication:BMI 23.0-23.9, adult Start:19-Mar-2022 Instruction Type:Provider Instructions for Treatment How to Access Health Informa tion Online using Patient Portal and [employer] Apps Indication:BMI 23.0-23.9, adult Start:19-Mar-2022 Instruction Type:Patient Education Patient Instructions Indication:Nonsmoker Start:30-Dec-2021 Instruction Type:Provider Instructions for Treatment How to Access Health Informa tion Online using Patient Portal and [employer] Apps Indication:Nonsmoker Start:30-Dec-2021 Instruction Type:Patient Education Patient Instructions Indication:BMI 23.0-23.9, adult Start:14-Dec-2021 Instruction Type:Provider Instructions for Treatment How to Access Health Informa tion Online using Patient Portal and [employer] Apps Indication:BMI 23.0-23.9, adult Start:14-Dec-2021 Instruction Type:Patient Education Patient Instructions Indication:Nonsmoker Start:13-Nov-2021 Instruction Type:Provider Instructions for Treatment How to Access Health Informa tion Online using Patient Portal and [employer] Apps Indication:Nonsmoker Start:13-Nov-2021 Instruction Type:Patient Education Patient Instructions Indication:BMI 23.0-23.9, adult Start:19-Oct-2021 Instruction Type:Provider Instructions for Treatment How to Access Health Informa tion Online using Patient Portal and [employer] Apps Indication:BMI 23.0-23.9, adult Start:19-Oct-2021 Instruction Type:Patient Education Patient Instructions Indication:BMI 23.0-23.9, adult Start:30-Sep-2021 Instruction Type:Provider Instructions for Treatment How to Access Health Informa tion Online using Patient Portal and [employer] Apps Indication:BMI 23.0-23.9, adult Start:30-Sep-2021 Instruction Type:Patient Education Patient Instructions Indication:UTI symptoms Start:15-Sep-2021 Instruction Type:Provider Instructions for Treatment How to Access Health Informa tion Online using Patient Portal and [employer] Apps Indication:UTI symptoms Start:15-Sep-2021 Instruction Type:Patient Education Patient Instructions Indication:BMI 22.0-22.9, adult Start:27-Aug-2021 Instruction Type:Provider Instructions for Treatment How to Access Health Informa tion Online using Patient Portal and [employer] Apps Indication:BMI 22.0-22.9, adult Start:27-Aug-2021 Instruction Type:Patient Education Patient Instructions Indication:Impaired fasting glucose Start:12-Aug-2021 Instruction Type:Provider Instructions for Treatment How to Access Health Informa tion Online using Patient Portal and [employer] Apps Indication:Impaired fasting glucose Start:12-Aug-2021 Instruction Type:Patient Education Patient Instructions Indication:Splinter of foot Start:03-Jul-2021 Instruction Type:Provider Instructions for Treatment How to Access Health Informa tion Online using Patient Portal and [employer] Apps Indication:Splinter of foot Start:03-Jul-2021 Instruction Type:Patient Education Patient Instructions Indication:BMI 23.0-23.9, adult Start:27-May-2021 Instruction Type:Provider Instructions for Treatment How to Access Health Informa tion Online using Patient Portal and [employer] Apps Indication:BMI 23.0-23.9, adult Start:27-May-2021 Instruction Type:Patient Education Patient Instructions Indication:Nonsmoker Start:13-May-2021 Instruction Type:Provider Instructions for Treatment How to Access Health Informa tion Online using Patient Portal and [employer] Apps Indication:Nonsmoker Start:13-May-2021 Instruction Type:Patient Education Patient Instructions Indication:Nonsmoker Start:06-May-2021 Instruction Type:Provider Instructions for Treatment How to Access Health Informa tion Online using Patient Portal and [employer] Apps Indication:Nonsmoker Start:06-May-2021 Instruction Type:Patient Education Patient Instructions Indication:Nonsmoker Start:08-Apr-2021 Instruction Type:Provider Instructions for Treatment How to Access Health Informa tion Online using Patient Portal and [employer] Apps Indication:Nonsmoker Start:08-Apr-2021 Instruction Type:Patient Education Patient Instructions Indication:BMI 23.0-23.9, adult Start:20-Mar-2021 Instruction Type:Provider Instructions for Treatment How to Access Health Informa tion Online using Patient Portal and [employer] Indication:BMI 23.0-23.9, adult Start:20-Mar-2021 Instruction Type:Patient Education Patient Instructions Indication:Nonsmoker Start:18-Mar-2021 Instruction Type:Provider Instructions for Treatment How to Access Health Informa tion Online using Patient Portal and [employer] Apps Indication:Nonsmoker Start:18-Mar-2021 Instruction Type:Patient Education Patient Instructions Indication:Nonsmoker Start:06-Feb-2021 Instruction Type:Provider Instructions for Treatment How to Access Health Informa tion Online using Patient Portal and [employer] Apps Indication:Nonsmoker Start:06-Feb-2021 Instruction Type:Patient Education Patient Instructions Indication:Nonsmoker Start:06-Oct-2020 Instruction Type:Provider Instructions for Treatment How to Access Health Informa tion Online using Patient Portal and [employer] Apps Indication:Nonsmoker Start:06-Oct-2020 Instruction Type:Patient Education Patient Instructions Indication:BMI 22.0-22.9, adult Start:29-Jul-2020 Instruction Type:Provider Instructions for Treatment How to Access Health Informa tion Online using Patient Portal and [employer] Apps Indication:Nonsmoker Start:29-Jul-2020 Instruction Type:Patient Education Patient Instructions Indication:Nonsmoker Start:15-Jul-2020 Instruction Type:Provider Instructions for Treatment How to Access Health Informa tion Online using Patient Portal and [employer] Apps Indication:Nonsmoker Start:15-Jul-2020 Instruction Type:Patient Education [facility]; [facility] Work Phone: Instructions* Name Dates Details How to Access Health Informa tion Online using Patient Portal and [employer] Apps Indication:Nonsmoker Start:10-Nov-2022 Instruction Type:Patient Education Patient Instructions Indication:Nonsmoker Start:10-Nov-2022 Instruction Type:Provider Instructions for Treatment How to Access Health Informa tion Online using Patient Portal and [employer] Apps Indication:BMI 23.0-23.9, adult Start:28-Oct-2022 Instruction Type:Patient Education Patient Instructions Indication:BMI 23.0-23.9, adult Start:28-Oct-2022 Instruction Type:Provider Instructions for Treatment Patient Instructions Indication:Nonsmoker Start:15-Oct-2022 Instruction Type:Provider Instructions for Treatment How to Access Health Informa tion Online using Patient Portal and [employer] Apps Indication:Nonsmoker Start:15-Oct-2022 Instruction Type:Patient Education Patient Instructions Indication:Sore throat Start:23-Aug-2022 Instruction Type:Provider Instructions for Treatment How to Access Health Informa tion Online using Patient Portal and [employer] Apps Indication:Sore throat Start:23-Aug-2022 Instruction Type:Patient Education Patient Instructions Indication:Nonsmoker Start:02-Aug-2022 Instruction Type:Provider Instructions for Treatment How to Access Health Informa tion Online using Patient Portal and [employer] Apps Indication:Nonsmoker Start:02-Aug-2022 Instruction Type:Patient Education Patient Instructions Indication:BMI 23.0-23.9, adult Start:16-Apr-2022 Instruction Type:Provider Instructions for Treatment How to Access Health Informa tion Online using Patient Portal and [employer] Apps Indication:BMI 23.0-23.9, adult Start:16-Apr-2022 Instruction Type:Patient Education Patient Instructions Indication:BMI 23.0-23.9, adult Start:07-Apr-2022 Instruction Type:Provider Instructions for Treatment How to Access Health Informa tion Online using Patient Portal and [employer] Apps Indication:BMI 23.0-23.9, adult Start:07-Apr-2022 Instruction Type:Patient Education Patient Instructions Indication:BMI 23.0-23.9, adult Start:19-Mar-2022 Instruction Type:Provider Instructions for Treatment How to Access Health Informa tion Online using Patient Portal and [employer] Apps Indication:BMI 23.0-23.9, adult Start:19-Mar-2022 Instruction Type:Patient Education Patient Instructions Indication:Nonsmoker Start:30-Dec-2021 Instruction Type:Provider Instructions for Treatment How to Access Health Informa tion Online using Patient Portal and [employer] Apps Indication:Nonsmoker Start:30-Dec-2021 Instruction Type:Patient Education Patient Instructions Indication:BMI 23.0-23.9, adult Start:14-Dec-2021 Instruction Type:Provider Instructions for Treatment How to Access Health Informa tion Online using Patient Portal and [employer] Indication:BMI 23.0-23.9, adult Start:14-Dec-2021 Instruction Type:Patient Education Patient Instructions Indication:Nonsmoker Start:13-Nov-2021 Instruction Type:Provider Instructions for Treatment How to Access Health Informa tion Online using Patient Portal and [employer] Apps Indication:Nonsmoker Start:13-Nov-2021 Instruction Type:Patient Education Patient Instructions Indication:BMI 23.0-23.9, adult Start:19-Oct-2021 Instruction Type:Provider Instructions for Treatment How to Access Health Informa tion Online using Patient Portal and [employer] Apps Indication:BMI 23.0-23.9, adult Start:19-Oct-2021 Instruction Type:Patient Education Patient Instructions Indication:BMI 23.0-23.9, adult Start:30-Sep-2021 Instruction Type:Provider Instructions for Treatment How to Access Health Informa tion Online using Patient Portal and [employer] Apps Indication:BMI 23.0-23.9, adult Start:30-Sep-2021 Instruction Type:Patient Education Patient Instructions Indication:UTI symptoms Start:15-Sep-2021 Instruction Type:Provider Instructions for Treatment How to Access Health Informa tion Online using Patient Portal and [employer] Apps Indication:UTI symptoms Start:15-Sep-2021 Instruction Type:Patient Education Patient Instructions Indication:BMI 22.0-22.9, adult Start:27-Aug-2021 Instruction Type:Provider Instructions for Treatment How to Access Health Informa tion Online using Patient Portal and [employer] Apps Indication:BMI 22.0-22.9, adult Start:27-Aug-2021 Instruction Type:Patient Education Patient Instructions Indication:Impaired fasting glucose Start:12-Aug-2021 Instruction Type:Provider Instructions for Treatment How to Access Health Informa tion Online using Patient Portal and [employer] Apps Indication:Impaired fasting glucose Start:12-Aug-2021 Instruction Type:Patient Education Patient Instructions Indication:Splinter of foot Start:03-Jul-2021 Instruction Type:Provider Instructions for Treatment How to Access Health Informa tion Online using Patient Portal and [employer] Apps Indication:Splinter of foot Start:03-Jul-2021 Instruction Type:Patient Education Patient Instructions Indication:BMI 23.0-23.9, adult Start:27-May-2021 Instruction Type:Provider Instructions for Treatment How to Access Health Informa tion Online using Patient Portal and [employer] Indication:BMI 23.0-23.9, adult Start:27-May-2021 Instruction Type:Patient Education Patient Instructions Indication:Nonsmoker Start:13-May-2021 Instruction Type:Provider Instructions for Treatment How to Access Health Informa tion Online using Patient Portal and [employer] Apps Indication:Nonsmoker Start:13-May-2021 Instruction Type:Patient Education Patient Instructions Indication:Nonsmoker Start:06-May-2021 Instruction Type:Provider Instructions for Treatment How to Access Health Informa tion Online using Patient Portal and [employer] Indication:Nonsmoker Start:06-May-2021 Instruction Type:Patient Education Patient Instructions Indication:Nonsmoker Start:08-Apr-2021 Instruction Type:Provider Instructions for Treatment How to Access Health Informa tion Online using Patient Portal and [employer] Indication:Nonsmoker Start:08-Apr-2021 Instruction Type:Patient Education Patient Instructions Indication:BMI 23.0-23.9, adult Start:20-Mar-2021 Instruction Type:Provider Instructions for Treatment How to Access Health Informa tion Online using Patient Portal and [employer] Indication:BMI 23.0-23.9, adult Start:20-Mar-2021 Instruction Type:Patient Education Patient Instructions Indication:Nonsmoker Start:18-Mar-2021 Instruction Type:Provider Instructions for Treatment How to Access Health Informa tion Online using Patient Portal and [employer] Apps Indication:Nonsmoker Start:18-Mar-2021 Instruction Type:Patient Education Patient Instructions Indication:Nonsmoker Start:06-Feb-2021 Instruction Type:Provider Instructions for Treatment How to Access Health Informa tion Online using Patient Portal and [employer] Indication:Nonsmoker Start:06-Feb-2021 Instruction Type:Patient Education Patient Instructions Indication:Nonsmoker Start:06-Oct-2020 Instruction Type:Provider Instructions for Treatment How to Access Health Informa tion Online using Patient Portal and [employer] Indication:Nonsmoker Start:06-Oct-2020 Instruction Type:Patient Education Patient Instructions Indication:BMI 22.0-22.9, adult Start:29-Jul-2020 Instruction Type:Provider Instructions for Treatment How to Access Health Informa tion Online using Patient Portal and [employer] Indication:Nonsmoker Start:29-Jul-2020 Instruction Type:Patient Education Patient Instructions Indication:Nonsmoker Start:15-Jul-2020 Instruction Type:Provider Instructions for Treatment How to Access Health Informa tion Online using Patient Portal and [employer] Indication:Nonsmoker Start:15-Jul-2020 Instruction Type:Patient Education [facility]; [facility] Work Phone: Instructions* Name Dates Details Patient Instructions Indication:Right knee pain Start:25-Nov-2022 Instruction Type:Provider Instructions for Treatment How to Access Health Informa tion Online using Patient Portal and [employer] Apps Indication:Right knee pain Start:25-Nov-2022 Instruction Type:Patient Education How to Access Health Informa tion Online using Patient Portal and [employer] Apps Indication:Nonsmoker Start:10-Nov-2022 Instruction Type:Patient Education Patient Instructions Indication:Nonsmoker Start:10-Nov-2022 Instruction Type:Provider Instructions for Treatment How to Access Health Informa tion Online using Patient Portal and [employer] Indication:BMI 23.0-23.9, adult Start:28-Oct-2022 Instruction Type:Patient Education Patient Instructions Indication:BMI 23.0-23.9, adult Start:28-Oct-2022 Instruction Type:Provider Instructions for Treatment Patient Instructions Indication:Nonsmoker Start:15-Oct-2022 Instruction Type:Provider Instructions for Treatment How to Access Health Informa tion Online using Patient Portal and [employer] Indication:Nonsmoker Start:15-Oct-2022 Instruction Type:Patient Education Patient Instructions Indication:Sore throat Start:23-Aug-2022 Instruction Type:Provider Instructions for Treatment How to Access Health Informa tion Online using Patient Portal and [employer] Indication:Sore throat Start:23-Aug-2022 Instruction Type:Patient Education Patient Instructions Indication:Nonsmoker Start:02-Aug-2022 Instruction Type:Provider Instructions for Treatment How to Access Health Informa tion Online using Patient Portal and [employer] Apps Indication:Nonsmoker Start:02-Aug-2022 Instruction Type:Patient Education Patient Instructions Indication:BMI 23.0-23.9, adult Start:16-Apr-2022 Instruction Type:Provider Instructions for Treatment How to Access Health Informa tion Online using Patient Portal and [employer] Indication:BMI 23.0-23.9, adult Start:16-Apr-2022 Instruction Type:Patient Education Patient Instructions Indication:BMI 23.0-23.9, adult Start:07-Apr-2022 Instruction Type:Provider Instructions for Treatment How to Access Health Informa tion Online using Patient Portal and [employer] Indication:BMI 23.0-23.9, adult Start:07-Apr-2022 Instruction Type:Patient Education Patient Instructions Indication:BMI 23.0-23.9, adult Start:19-Mar-2022 Instruction Type:Provider Instructions for Treatment How to Access Health Informa tion Online using Patient Portal and [employer] Indication:BMI 23.0-23.9, adult Start:19-Mar-2022 Instruction Type:Patient Education Patient Instructions Indication:Nonsmoker Start:30-Dec-2021 Instruction Type:Provider Instructions for Treatment How to Access Health Informa tion Online using Patient Portal and [employer] Indication:Nonsmoker Start:30-Dec-2021 Instruction Type:Patient Education Patient Instructions Indication:BMI 23.0-23.9, adult Start:14-Dec-2021 Instruction Type:Provider Instructions for Treatment How to Access Health Informa tion Online using Patient Portal and [employer] Indication:BMI 23.0-23.9, adult Start:14-Dec-2021 Instruction Type:Patient Education Patient Instructions Indication:Nonsmoker Start:13-Nov-2021 Instruction Type:Provider Instructions for Treatment How to Access Health Informa tion Online using Patient Portal and [employer] Indication:Nonsmoker Start:13-Nov-2021 Instruction Type:Patient Education Patient Instructions Indication:BMI 23.0-23.9, adult Start:19-Oct-2021 Instruction Type:Provider Instructions for Treatment How to Access Health Informa tion Online using Patient Portal and [employer] Apps Indication:BMI 23.0-23.9, adult Start:19-Oct-2021 Instruction Type:Patient Education Patient Instructions Indication:BMI 23.0-23.9, adult Start:30-Sep-2021 Instruction Type:Provider Instructions for Treatment How to Access Health Informa tion Online using Patient Portal and [employer] Apps Indication:BMI 23.0-23.9, adult Start:30-Sep-2021 Instruction Type:Patient Education Patient Instructions Indication:UTI symptoms Start:15-Sep-2021 Instruction Type:Provider Instructions for Treatment How to Access Health Informa tion Online using Patient Portal and [employer] Apps Indication:UTI symptoms Start:15-Sep-2021 Instruction Type:Patient Education Patient Instructions Indication:BMI 22.0-22.9, adult Start:27-Aug-2021 Instruction Type:Provider Instructions for Treatment How to Access Health Informa tion Online using Patient Portal and [employer] Apps Indication:BMI 22.0-22.9, adult Start:27-Aug-2021 Instruction Type:Patient Education Patient Instructions Indication:Impaired fasting glucose Start:12-Aug-2021 Instruction Type:Provider Instructions for Treatment How to Access Health Informa tion Online using Patient Portal and [employer] Apps Indication:Impaired fasting glucose Start:12-Aug-2021 Instruction Type:Patient Education Patient Instructions Indication:Splinter of foot Start:03-Jul-2021 Instruction Type:Provider Instructions for Treatment How to Access Health Informa tion Online using Patient Portal and [employer] Apps Indication:Splinter of foot Start:03-Jul-2021 Instruction Type:Patient Education Patient Instructions Indication:BMI 23.0-23.9, adult Start:27-May-2021 Instruction Type:Provider Instructions for Treatment How to Access Health Informa tion Online using Patient Portal and [employer] Apps Indication:BMI 23.0-23.9, adult Start:27-May-2021 Instruction Type:Patient Education Patient Instructions Indication:Nonsmoker Start:13-May-2021 Instruction Type:Provider Instructions for Treatment How to Access Health Informa tion Online using Patient Portal and [employer] Apps Indication:Nonsmoker Start:13-May-2021 Instruction Type:Patient Education Patient Instructions Indication:Nonsmoker Start:06-May-2021 Instruction Type:Provider Instructions for Treatment How to Access Health Informa tion Online using Patient Portal and [employer] Apps Indication:Nonsmoker Start:06-May-2021 Instruction Type:Patient Education Patient Instructions Indication:Nonsmoker Start:08-Apr-2021 Instruction Type:Provider Instructions for Treatment How to Access Health Informa tion Online using Patient Portal and [employer] Apps Indication:Nonsmoker Start:08-Apr-2021 Instruction Type:Patient Education Patient Instructions Indication:BMI 23.0-23.9, adult Start:20-Mar-2021 Instruction Type:Provider Instructions for Treatment How to Access Health Informa tion Online using Patient Portal and [employer] Apps Indication:BMI 23.0-23.9, adult Start:20-Mar-2021 Instruction Type:Patient Education Patient Instructions Indication:Nonsmoker Start:18-Mar-2021 Instruction Type:Provider Instructions for Treatment How to Access Health Informa tion Online using Patient Portal and [employer] Apps Indication:Nonsmoker Start:18-Mar-2021 Instruction Type:Patient Education Patient Instructions Indication:Nonsmoker Start:06-Feb-2021 Instruction Type:Provider Instructions for Treatment How to Access Health Informa tion Online using Patient Portal and [employer] Apps Indication:Nonsmoker Start:06-Feb-2021 Instruction Type:Patient Education Patient Instructions Indication:Nonsmoker Start:06-Oct-2020 Instruction Type:Provider Instructions for Treatment How to Access Health Informa tion Online using Patient Portal and [employer] Apps Indication:Nonsmoker Start:06-Oct-2020 Instruction Type:Patient Education Patient Instructions Indication:BMI 22.0-22.9, adult Start:29-Jul-2020 Instruction Type:Provider Instructions for Treatment How to Access Health Informa tion Online using Patient Portal and [employer] Apps Indication:Nonsmoker Start:29-Jul-2020 Instruction Type:Patient Education Patient Instructions Indication:Nonsmoker Start:15-Jul-2020 Instruction Type:Provider Instructions for Treatment How to Access Health Informa tion Online using Patient Portal and [employer] Apps Indication:Nonsmoker Start:15-Jul-2020 Instruction Type:Patient Education [facility] Work Phone: Instructions* Name Dates Details Patient Instructions Indication:Right knee pain Start:25-Nov-2022 Instruction Type:Provider Instructions for Treatment How to Access Health Informa tion Online using Patient Portal and [employer] Apps Indication:Right knee pain Start:25-Nov-2022 Instruction Type:Patient Education How to Access Health Informa tion Online using Patient Portal and [employer] Apps Indication:Nonsmoker Start:10-Nov-2022 Instruction Type:Patient Education Patient Instructions Indication:Nonsmoker Start:10-Nov-2022 Instruction Type:Provider Instructions for Treatment How to Access Health Informa tion Online using Patient Portal and [employer] Apps Indication:BMI 23.0-23.9, adult Start:28-Oct-2022 Instruction Type:Patient Education Patient Instructions Indication:BMI 23.0-23.9, adult Start:28-Oct-2022 Instruction Type:Provider Instructions for Treatment Patient Instructions Indication:Nonsmoker Start:15-Oct-2022 Instruction Type:Provider Instructions for Treatment How to Access Health Informa tion Online using Patient Portal and [employer] Apps Indication:Nonsmoker Start:15-Oct-2022 Instruction Type:Patient Education Patient Instructions Indication:Sore throat Start:23-Aug-2022 Instruction Type:Provider Instructions for Treatment How to Access Health Informa tion Online using Patient Portal and [employer] Apps Indication:Sore throat Start:23-Aug-2022 Instruction Type:Patient Education Patient Instructions Indication:Nonsmoker Start:02-Aug-2022 Instruction Type:Provider Instructions for Treatment How to Access Health Informa tion Online using Patient Portal and [employer] Apps Indication:Nonsmoker Start:02-Aug-2022 Instruction Type:Patient Education Patient Instructions Indication:BMI 23.0-23.9, adult Start:16-Apr-2022 Instruction Type:Provider Instructions for Treatment How to Access Health Informa tion Online using Patient Portal and [employer] Apps Indication:BMI 23.0-23.9, adult Start:16-Apr-2022 Instruction Type:Patient Education Patient Instructions Indication:BMI 23.0-23.9, adult Start:07-Apr-2022 Instruction Type:Provider Instructions for Treatment How to Access Health Informa tion Online using Patient Portal and [employer] Apps Indication:BMI 23.0-23.9, adult Start:07-Apr-2022 Instruction Type:Patient Education Patient Instructions Indication:BMI 23.0-23.9, adult Start:19-Mar-2022 Instruction Type:Provider Instructions for Treatment How to Access Health Informa tion Online using Patient Portal and [employer] Apps Indication:BMI 23.0-23.9, adult Start:19-Mar-2022 Instruction Type:Patient Education Patient Instructions Indication:Nonsmoker Start:30-Dec-2021 Instruction Type:Provider Instructions for Treatment How to Access Health Informa tion Online using Patient Portal and [employer] Apps Indication:Nonsmoker Start:30-Dec-2021 Instruction Type:Patient Education Patient Instructions Indication:BMI 23.0-23.9, adult Start:14-Dec-2021 Instruction Type:Provider Instructions for Treatment How to Access Health Informa tion Online using Patient Portal and [employer] Apps Indication:BMI 23.0-23.9, adult Start:14-Dec-2021 Instruction Type:Patient Education Patient Instructions Indication:Nonsmoker Start:13-Nov-2021 Instruction Type:Provider Instructions for Treatment How to Access Health Informa tion Online using Patient Portal and [employer] Apps Indication:Nonsmoker Start:13-Nov-2021 Instruction Type:Patient Education Patient Instructions Indication:BMI 23.0-23.9, adult Start:19-Oct-2021 Instruction Type:Provider Instructions for Treatment How to Access Health Informa tion Online using Patient Portal and [employer] Apps Indication:BMI 23.0-23.9, adult Start:19-Oct-2021 Instruction Type:Patient Education Patient Instructions Indication:BMI 23.0-23.9, adult Start:30-Sep-2021 Instruction Type:Provider Instructions for Treatment How to Access Health Informa tion Online using Patient Portal and [employer] Apps Indication:BMI 23.0-23.9, adult Start:30-Sep-2021 Instruction Type:Patient Education Patient Instructions Indication:UTI symptoms Start:15-Sep-2021 Instruction Type:Provider Instructions for Treatment How to Access Health Informa tion Online using Patient Portal and [employer] Apps Indication:UTI symptoms Start:15-Sep-2021 Instruction Type:Patient Education Patient Instructions Indication:BMI 22.0-22.9, adult Start:27-Aug-2021 Instruction Type:Provider Instructions for Treatment How to Access Health Informa tion Online using Patient Portal and [employer] Apps Indication:BMI 22.0-22.9, adult Start:27-Aug-2021 Instruction Type:Patient Education Patient Instructions Indication:Impaired fasting glucose Start:12-Aug-2021 Instruction Type:Provider Instructions for Treatment How to Access Health Informa tion Online using Patient Portal and [employer] Apps Indication:Impaired fasting glucose Start:12-Aug-2021 Instruction Type:Patient Education Patient Instructions Indication:Splinter of foot Start:03-Jul-2021 Instruction Type:Provider Instructions for Treatment How to Access Health Informa tion Online using Patient Portal and [employer] Apps Indication:Splinter of foot Start:03-Jul-2021 Instruction Type:Patient Education Patient Instructions Indication:BMI 23.0-23.9, adult Start:27-May-2021 Instruction Type:Provider Instructions for Treatment How to Access Health Informa tion Online using Patient Portal and [employer] Apps Indication:BMI 23.0-23.9, adult Start:27-May-2021 Instruction Type:Patient Education Patient Instructions Indication:Nonsmoker Start:13-May-2021 Instruction Type:Provider Instructions for Treatment How to Access Health Informa tion Online using Patient Portal and [employer] Apps Indication:Nonsmoker Start:13-May-2021 Instruction Type:Patient Education Patient Instructions Indication:Nonsmoker Start:06-May-2021 Instruction Type:Provider Instructions for Treatment How to Access Health Informa tion Online using Patient Portal and [employer] Apps Indication:Nonsmoker Start:06-May-2021 Instruction Type:Patient Education Patient Instructions Indication:Nonsmoker Start:08-Apr-2021 Instruction Type:Provider Instructions for Treatment How to Access Health Informa tion Online using Patient Portal and [employer] Apps Indication:Nonsmoker Start:08-Apr-2021 Instruction Type:Patient Education Patient Instructions Indication:BMI 23.0-23.9, adult Start:20-Mar-2021 Instruction Type:Provider Instructions for Treatment How to Access Health Informa tion Online using Patient Portal and [employer] Apps Indication:BMI 23.0-23.9, adult Start:20-Mar-2021 Instruction Type:Patient Education Patient Instructions Indication:Nonsmoker Start:18-Mar-2021 Instruction Type:Provider Instructions for Treatment How to Access Health Informa tion Online using Patient Portal and [employer] Apps Indication:Nonsmoker Start:18-Mar-2021 Instruction Type:Patient Education Patient Instructions Indication:Nonsmoker Start:06-Feb-2021 Instruction Type:Provider Instructions for Treatment How to Access Health Informa tion Online using Patient Portal and [employer] Apps Indication:Nonsmoker Start:06-Feb-2021 Instruction Type:Patient Education Patient Instructions Indication:Nonsmoker Start:06-Oct-2020 Instruction Type:Provider Instructions for Treatment How to Access Health Informa tion Online using Patient Portal and [employer] Apps Indication:Nonsmoker Start:06-Oct-2020 Instruction Type:Patient Education Patient Instructions Indication:BMI 22.0-22.9, adult Start:29-Jul-2020 Instruction Type:Provider Instructions for Treatment How to Access Health Informa tion Online using Patient Portal and [employer] Apps Indication:Nonsmoker Start:29-Jul-2020 Instruction Type:Patient Education Patient Instructions Indication:Nonsmoker Start:15-Jul-2020 Instruction Type:Provider Instructions for Treatment How to Access Health Informa tion Online using Patient Portal and [employer] Apps Indication:Nonsmoker Start:15-Jul-2020 Instruction Type:Patient Education [facility]; [facility] Work Phone: Instructions* Name Dates Details Patient Instructions Indication:Right knee pain Start:25-Nov-2022 Instruction Type:Provider Instructions for Treatment How to Access Health Informa tion Online using Patient Portal and [employer] Apps Indication:Right knee pain Start:25-Nov-2022 Instruction Type:Patient Education How to Access Health Informa tion Online using Patient Portal and [employer] Apps Indication:Nonsmoker Start:10-Nov-2022 Instruction Type:Patient Education Patient Instructions Indication:Nonsmoker Start:10-Nov-2022 Instruction Type:Provider Instructions for Treatment How to Access Health Informa tion Online using Patient Portal and [employer] Apps Indication:BMI 23.0-23.9, adult Start:28-Oct-2022 Instruction Type:Patient Education Patient Instructions Indication:BMI 23.0-23.9, adult Start:28-Oct-2022 Instruction Type:Provider Instructions for Treatment Patient Instructions Indication:Nonsmoker Start:15-Oct-2022 Instruction Type:Provider Instructions for Treatment How to Access Health Informa tion Online using Patient Portal and [employer] Apps Indication:Nonsmoker Start:15-Oct-2022 Instruction Type:Patient Education Patient Instructions Indication:Sore throat Start:23-Aug-2022 Instruction Type:Provider Instructions for Treatment How to Access Health Informa tion Online using Patient Portal and [employer] Apps Indication:Sore throat Start:23-Aug-2022 Instruction Type:Patient Education Patient Instructions Indication:Nonsmoker Start:02-Aug-2022 Instruction Type:Provider Instructions for Treatment How to Access Health Informa tion Online using Patient Portal and [employer] Apps Indication:Nonsmoker Start:02-Aug-2022 Instruction Type:Patient Education Patient Instructions Indication:BMI 23.0-23.9, adult Start:16-Apr-2022 Instruction Type:Provider Instructions for Treatment How to Access Health Informa tion Online using Patient Portal and [employer] Apps Indication:BMI 23.0-23.9, adult Start:16-Apr-2022 Instruction Type:Patient Education Patient Instructions Indication:BMI 23.0-23.9, adult Start:07-Apr-2022 Instruction Type:Provider Instructions for Treatment How to Access Health Informa tion Online using Patient Portal and [employer] Apps Indication:BMI 23.0-23.9, adult Start:07-Apr-2022 Instruction Type:Patient Education Patient Instructions Indication:BMI 23.0-23.9, adult Start:19-Mar-2022 Instruction Type:Provider Instructions for Treatment How to Access Health Informa tion Online using Patient Portal and [employer] Apps Indication:BMI 23.0-23.9, adult Start:19-Mar-2022 Instruction Type:Patient Education Patient Instructions Indication:Nonsmoker Start:30-Dec-2021 Instruction Type:Provider Instructions for Treatment How to Access Health Informa tion Online using Patient Portal and [employer] Apps Indication:Nonsmoker Start:30-Dec-2021 Instruction Type:Patient Education Patient Instructions Indication:BMI 23.0-23.9, adult Start:14-Dec-2021 Instruction Type:Provider Instructions for Treatment How to Access Health Informa tion Online using Patient Portal and [employer] Apps Indication:BMI 23.0-23.9, adult Start:14-Dec-2021 Instruction Type:Patient Education Patient Instructions Indication:Nonsmoker Start:13-Nov-2021 Instruction Type:Provider Instructions for Treatment How to Access Health Informa tion Online using Patient Portal and [employer] Apps Indication:Nonsmoker Start:13-Nov-2021 Instruction Type:Patient Education Patient Instructions Indication:BMI 23.0-23.9, adult Start:19-Oct-2021 Instruction Type:Provider Instructions for Treatment How to Access Health Informa tion Online using Patient Portal and [employer] Apps Indication:BMI 23.0-23.9, adult Start:19-Oct-2021 Instruction Type:Patient Education Patient Instructions Indication:BMI 23.0-23.9, adult Start:30-Sep-2021 Instruction Type:Provider Instructions for Treatment How to Access Health Informa tion Online using Patient Portal and [employer] Apps Indication:BMI 23.0-23.9, adult Start:30-Sep-2021 Instruction Type:Patient Education Patient Instructions Indication:UTI symptoms Start:15-Sep-2021 Instruction Type:Provider Instructions for Treatment How to Access Health Informa tion Online using Patient Portal and [employer] Apps Indication:UTI symptoms Start:15-Sep-2021 Instruction Type:Patient Education Patient Instructions Indication:BMI 22.0-22.9, adult Start:27-Aug-2021 Instruction Type:Provider Instructions for Treatment How to Access Health Informa tion Online using Patient Portal and [employer] Apps Indication:BMI 22.0-22.9, adult Start:27-Aug-2021 Instruction Type:Patient Education Patient Instructions Indication:Impaired fasting glucose Start:12-Aug-2021 Instruction Type:Provider Instructions for Treatment How to Access Health Informa tion Online using Patient Portal and [employer] Apps Indication:Impaired fasting glucose Start:12-Aug-2021 Instruction Type:Patient Education Patient Instructions Indication:Splinter of foot Start:03-Jul-2021 Instruction Type:Provider Instructions for Treatment How to Access Health Informa tion Online using Patient Portal and [employer] Apps Indication:Splinter of foot Start:03-Jul-2021 Instruction Type:Patient Education Patient Instructions Indication:BMI 23.0-23.9, adult Start:27-May-2021 Instruction Type:Provider Instructions for Treatment How to Access Health Informa tion Online using Patient Portal and [employer] Indication:BMI 23.0-23.9, adult Start:27-May-2021 Instruction Type:Patient Education Patient Instructions Indication:Nonsmoker Start:13-May-2021 Instruction Type:Provider Instructions for Treatment How to Access Health Informa tion Online using Patient Portal and [employer] Apps Indication:Nonsmoker Start:13-May-2021 Instruction Type:Patient Education Patient Instructions Indication:Nonsmoker Start:06-May-2021 Instruction Type:Provider Instructions for Treatment How to Access Health Informa tion Online using Patient Portal and [employer] Apps Indication:Nonsmoker Start:06-May-2021 Instruction Type:Patient Education Patient Instructions Indication:Nonsmoker Start:08-Apr-2021 Instruction Type:Provider Instructions for Treatment How to Access Health Informa tion Online using Patient Portal and [employer] Indication:Nonsmoker Start:08-Apr-2021 Instruction Type:Patient Education Patient Instructions Indication:BMI 23.0-23.9, adult Start:20-Mar-2021 Instruction Type:Provider Instructions for Treatment How to Access Health Informa tion Online using Patient Portal and [employer] Indication:BMI 23.0-23.9, adult Start:20-Mar-2021 Instruction Type:Patient Education Patient Instructions Indication:Nonsmoker Start:18-Mar-2021 Instruction Type:Provider Instructions for Treatment How to Access Health Informa tion Online using Patient Portal and [employer] Apps Indication:Nonsmoker Start:18-Mar-2021 Instruction Type:Patient Education Patient Instructions Indication:Nonsmoker Start:06-Feb-2021 Instruction Type:Provider Instructions for Treatment How to Access Health Informa tion Online using Patient Portal and [employer] Apps Indication:Nonsmoker Start:06-Feb-2021 Instruction Type:Patient Education Patient Instructions Indication:Nonsmoker Start:06-Oct-2020 Instruction Type:Provider Instructions for Treatment How to Access Health Informa tion Online using Patient Portal and [employer] Apps Indication:Nonsmoker Start:06-Oct-2020 Instruction Type:Patient Education Patient Instructions Indication:BMI 22.0-22.9, adult Start:29-Jul-2020 Instruction Type:Provider Instructions for Treatment How to Access Health Informa tion Online using Patient Portal and [employer] Apps Indication:Nonsmoker Start:29-Jul-2020 Instruction Type:Patient Education Patient Instructions Indication:Nonsmoker Start:15-Jul-2020 Instruction Type:Provider Instructions for Treatment How to Access Health Informa tion Online using Patient Portal and [employer] Apps Indication:Nonsmoker Start:15-Jul-2020 Instruction Type:Patient Education [facility]; [facility] Work Phone: progress [address] [place] [address] OFFICE VISIT Date of Service: 11/19/24 MR#: [id number] Acct: [id number] Patient: BITA THOMPSON Rep #: [id number] : 1945 Provider: Dr. Joseluis Dang MD Age/Sex: 79/F Location: [facility] Status: Signed Intake Vital Signs 10/09/24 12:57 10/18/24 11:26 11/19/24 11:47 Height 5 ft 6 in 5 ft 6 in Weight: 148 lb 4 oz 148 lb 144 lb BMI 23.9 23.8 BP 168/78 H 165/70 H 170/70 H Blood Pressure Location Lt brachial Lt brachial Lt brachial Position Sitting Sitting Sitting Respiration 15 16 17 Pulse 70 73 68 Pulse Source Monitor Monitor Monitor Temp 98.4 F 98.9 F 98.6 F Temp Source Temporal Temporal Temporal Pulse Oximetry (%) 96 97 95 Oxygen Delivery Method room air room air room air Intake Visit Reasons: B12 inject Chief Complaint: Allergies primidone Allergy (Severe, Verified 10/09/24 13:05) Anaphylaxis montelukast Allergy (Intermediate, Verified 10/09/24 13:05) Other alcohol (From Mastisol Adhesive) Allergy (Unknown, Verified 10/09/24 13:05) Rash beef derived (bovine) Allergy (Unknown, Verified 10/09/24 13:05) Unknown gum mastic (From Mastisol Adhesive) Allergy (Unknown, Verified 10/09/24 13:05) Rash methyl salicylate (From Mastisol Adhesive) Allergy (Unknown, Verified 10/09/24 13:05) Rash mold Allergy (Unknown, Verified 10/09/24 13:05) Difficulty Breathing/Wheezing penicillin V Allergy (Unknown, Verified 10/09/24 13:05) Rash storax (From Mastisol Adhesive) Allergy (Unknown, Verified 10/09/24 13:05) Rash [id number] Reductase Inhibitor Allergy (Verified 10/09/24 13:05) NEEDS FOLLOW-UP black pepper Adverse Reaction (Unknown, Verified 10/09/24 13:05) UNKNOWN Have you fallen in the past year?: No Office Meds cyanocobalamin (vitamin B-12) 1,000 mcg/mL injection solution Performing Provider: Brandt Dang MD Performing Location: [facility] Administered by: Estephania Ledesma on 11/19/24 11:49 Dose Route Admin Location Dispensed Lot Number Expiration Date Pack age NDC NDC [employer] 1,500 mcg IM left deltoid 1.5 mL [id number] 06/27/26 [id number] DYANA REES Comments: The patient presents for B12 injection for treatment of fatigue. She has fatigue. Her last B12 injection was of benefit for fatigue. The patient is awake and alert. B12 1500mcg IM was administered today. There were no complications. Assessment and Plan Assessment and Plan (1) Fatigue: Status: Chronic Qualifiers: Fatigue type: chronic, unspecified Qualified Code(s): R53.82 - Chronic fatigue, unspecified Orders: Orders Vitamin B12 Today R53.82 - Chronic fatigue, unspecified Medications: Discontinued propranolol ER Discontinued Reason: Discontinued by PCP/other physicians 60 mg PO QAM 90 caps 1RF Clinical Quality Measures Falls Risk Screening/Assistive Devices Have you fallen in the past year?: No 11/19/24 1755 ur > Date _ Brandt Dang MD Cosigner Signature: Date (if applicable) CC: [facility] Author Brandt Dang [facility] Note Date/Time November 19, 2024 5:55pm [facility] [address] [place] [address] OFFICE VISIT Date of Service: 11/19/24 MR#: [id number] Acct: [id number] Patient: BITA THOMPSON Rep #: [id number] : 1945 Provider: Dr. Joseluis Dang MD Age/Sex: 79/F Location: [facility] Status: Signed Intake Vital Signs 10/09/24 12:57 10/18/24 11:26 11/19/24 11:47 Height 5 ft 6 in 5 ft 6 in Weight: 148 lb 4 oz 148 lb 144 lb BMI 23.9 23.8 BP 168/78 H 165/70 H 170/70 H Blood Pressure Location Lt brachial Lt brachial Lt brachial Position Sitting Sitting Sitting Respiration 15 16 17 Pulse 70 73 68 Pulse Source Monitor Monitor Monitor Temp 98.4 F 98.9 F 98.6 F Temp Source Temporal Temporal Temporal Pulse Oximetry (%) 96 97 95 Oxygen Delivery Method room air room air room air Intake Visit Reasons: B12 inject Chief Complaint: Allergies primidone Allergy (Severe, Verified 10/09/24 13:05) Anaphylaxis montelukast Allergy (Intermediate, Verified 10/09/24 13:05) Other alcohol (From Mastisol Adhesive) Allergy (Unknown, Verified 10/09/24 13:05) Rash beef derived (bovine) Allergy (Unknown, Verified 10/09/24 13:05) Unknown gum mastic (From Mastisol Adhesive) Allergy (Unknown, Verified 10/09/24 13:05) Rash methyl salicylate (From Mastisol Adhesive) Allergy (Unknown, Verified 10/09/24 13:05) Rash mold Allergy (Unknown, Verified 10/09/24 13:05) Difficulty Breathing/Wheezing penicillin V Allergy (Unknown, Verified 10/09/24 13:05) Rash storax (From Mastisol Adhesive) Allergy (Unknown, Verified 10/09/24 13:05) Rash Lyivxln-CUN-AjO Reductase Inhibitor Allergy (Verified 10/09/24 13:05) NEEDS FOLLOW-UP black pepper Adverse Reaction (Unknown, Verified 10/09/24 13:05) UNKNOWN Have you fallen in the past year?: No Office Meds cyanocobalamin (vitamin B-12) 1,000 mcg/mL injection solution Performing Provider: Brandt Dang MD Performing Location: [facility] Administered by: Estephania Ledesma on 11/19/24 11:49 Dose Route Admin Location Dispensed Lot Number Expiration Date Pack age NDC NDC Paving [employer] 1,500 mcg IM left deltoid 1.5 mL [id number] 06/27/26 20582-336-03 [id number] [employer] Comments: The patient presents for B12 injection for treatment of fatigue. She has fatigue. Her last B12 injection was of benefit for fatigue. The patient is awake and alert. B12 1500mcg IM was administered today. There were no complications. Assessment and Plan Assessment and Plan (1) Fatigue: Status: Chronic Qualifiers: Fatigue type: chronic, unspecified Qualified Code(s): R53.82 - Chronic fatigue, unspecified Orders: Orders Vitamin B12 Today R53.82 - Chronic fatigue, unspecified Medications: Discontinued propranolol ER Discontinued Reason: Discontinued by PCP/other physicians 60 mg PO QAM 90 caps 1RF Clinical Quality Measures Falls Risk Screening/Assistive Devices Have you fallen in the past year?: No 11/19/24 4880 <Electronically signed by Brandt fisher MD> Date _ Brandt Dang MD Cosigner Signature: Date (if applicable) CC: ~ [facility] [employer] [facility] Work Phone: reason for referral (narrative)* Outpatient Procedure (Routine) - New Request Specialty Diagnoses / Procedures Referred By Contjenny t Referred To Contact [facility] Diagnoses Colon cancer screening Procedures COLONOSCOPY SCREENING COLONOSCOPY FLX DX W/COLLJ SPEC WHEN PFRMD Enmanuel Lockwood MD [address] [address] [facility] [address] [place] [address] Referral ID Status Reason Start Date Expiration Date Visits Requested Visits Authorized [id number] New Request Auto-Generat ed Referral 03/14/2024 03/14/2025 1 1 [facility] for referral (narrative)No reason for referral information availableChap[facility] [employer] [facility] Work Phone: Summary Purpose Family History Unknown Family Member Name Dates Details Autoimmune Comments:Sister. Status:Active Cancer Comments:Father. grandparent Status:Active Diabetes Comments:Father. Status:Active Emotional/Anxiety/Depression /Suicide Comments:Mother. Status:Active Heart/Lung Disease Status:Active High Blood Pressure Comments:Mother, Brother, Si ster Status:Active High Cholesterol Comments:Father. Brother. Si ster. Status:Active Kidney Disease Comments:Sister. Status:Active Stroke Comments:Mother. Father. Status:Active Thyroid Comments:Mother. Status:Active Ulcer Comments:Father. Status:Active Unknown Family Member Name Dates Details Autoimmune Comments:Sister. Status:Active Cancer Comments:Father. grandparent Status:Active Diabetes Comments:Father. Status:Active Emotional/Anxiety/Depression /Suicide Comments:Mother. Status:Active Heart/Lung Disease Status:Active High Blood Pressure Comments:Mother, Brother, Si ster Status:Active High Cholesterol Comments:Father. Brother. Si ster. Status:Active Kidney Disease Comments:Sister. Status:Active Stroke Comments:Mother. Father. Status:Active Thyroid Comments:Mother. Status:Active Ulcer Comments:Father. Status:Active Unknown Family Member Name Dates Details Autoimmune Comments:Sister. Status:Active Cancer Comments:Father. grandparent Status:Active Diabetes Comments:Father. Status:Active Emotional/Anxiety/Depression /Suicide Comments:Mother. Status:Active Heart/Lung Disease Status:Active High Blood Pressure Comments:Mother, Brother, Si ster Status:Active High Cholesterol Comments:Father. Brother. Si ster. Status:Active Kidney Disease Comments:Sister. Status:Active Stroke Comments:Mother. Father. Status:Active Thyroid Comments:Mother. Status:Active Ulcer Comments:Father. Status:Active Unknown Family Member Name Dates Details Autoimmune Comments:Sister. Status:Active Cancer Comments:Father. grandparent Status:Active Diabetes Comments:Father. Status:Active Emotional/Anxiety/Depression /Suicide Comments:Mother. Status:Active Heart/Lung Disease Status:Active High Blood Pressure Comments:Mother, Brother, Si ster Status:Active High Cholesterol Comments:Father. Brother. Si ster. Status:Active Kidney Disease Comments:Sister. Status:Active Stroke Comments:Mother. Father. Status:Active Thyroid Comments:Mother. Status:Active Ulcer Comments:Father. Status:Active Unknown Family Member Name Dates Details Autoimmune Comments:Sister. Status:Active Cancer Comments:Father. grandparent Status:Active Diabetes Comments:Father. Status:Active Emotional/Anxiety/Depression /Suicide Comments:Mother. Status:Active Heart/Lung Disease Status:Active High Blood Pressure Comments:Mother, Brother, Si ster Status:Active High Cholesterol Comments:Father. Brother. Si ster. Status:Active Kidney Disease Comments:Sister. Status:Active Stroke Comments:Mother. Father. Status:Active Thyroid Comments:Mother. Status:Active Ulcer Comments:Father. Status:Active Unknown Family Member Name Dates Details Autoimmune Comments:Sister. Status:Active Cancer Comments:Father. grandparent Status:Active Diabetes Comments:Father. Status:Active Emotional/Anxiety/Depression /Suicide Comments:Mother. Status:Active Heart/Lung Disease Status:Active High Blood Pressure Comments:Mother, Brother, Si ster Status:Active High Cholesterol Comments:Father. Brother. Si ster. Status:Active Kidney Disease Comments:Sister. Status:Active Stroke Comments:Mother. Father. Status:Active Thyroid Comments:Mother. Status:Active Ulcer Comments:Father. Status:Active Unknown Family Member Name Dates Details Autoimmune Comments:Sister. Status:Active Cancer Comments:Father. grandparent Status:Active Diabetes Comments:Father. Status:Active Emotional/Anxiety/Depression /Suicide Comments:Mother. Status:Active Heart/Lung Disease Status:Active High Blood Pressure Comments:Mother, Brother, Si ster Status:Active High Cholesterol Comments:Father. Brother. Si ster. Status:Active Kidney Disease Comments:Sister. Status:Active Stroke Comments:Mother. Father. Status:Active Thyroid Comments:Mother. Status:Active Ulcer Comments:Father. Status:Active Unknown Family Member Name Dates Details Autoimmune Comments:Sister. Status:Active Cancer Comments:Father. grandparent Status:Active Diabetes Comments:Father. Status:Active Emotional/Anxiety/Depression /Suicide Comments:Mother. Status:Active Heart/Lung Disease Status:Active High Blood Pressure Comments:Mother, Brother, Si ster Status:Active High Cholesterol Comments:Father. Brother. Si ster. Status:Active Kidney Disease Comments:Sister. Status:Active Stroke Comments:Mother. Father. Status:Active Thyroid Comments:Mother. Status:Active Ulcer Comments:Father. Status:Active Unknown Family Member Name Dates Details Autoimmune Comments:Sister. Status:Active Cancer Comments:Father. grandparent Status:Active Diabetes Comments:Father. Status:Active Emotional/Anxiety/Depression /Suicide Comments:Mother. Status:Active Heart/Lung Disease Status:Active High Blood Pressure Comments:Mother, Brother, Si ster Status:Active High Cholesterol Comments:Father. Brother. Si ster. Status:Active Kidney Disease Comments:Sister. Status:Active Stroke Comments:Mother. Father. Status:Active Thyroid Comments:Mother. Status:Active Ulcer Comments:Father. Status:Active Unknown Family Member Name Dates Details Autoimmune Comments:Sister. Status:Active Cancer Comments:Father. grandparent Status:Active Diabetes Comments:Father. Status:Active Emotional/Anxiety/Depression /Suicide Comments:Mother. Status:Active Heart/Lung Disease Status:Active High Blood Pressure Comments:Mother, Brother, Si ster Status:Active High Cholesterol Comments:Father. Brother. Si ster. Status:Active Kidney Disease Comments:Sister. Status:Active Stroke Comments:Mother. Father. Status:Active Thyroid Comments:Mother. Status:Active Ulcer Comments:Father. Status:Active Unknown Family Member Name Dates Details Autoimmune Comments:Sister. Status:Active Cancer Comments:Father. grandparent Status:Active Diabetes Comments:Father. Status:Active Emotional/Anxiety/Depression /Suicide Comments:Mother. Status:Active Heart/Lung Disease Status:Active High Blood Pressure Comments:Mother, Brother, Si ster Status:Active High Cholesterol Comments:Father. Brother. Si ster. Status:Active Kidney Disease Comments:Sister. Status:Active Stroke Comments:Mother. Father. Status:Active Thyroid Comments:Mother. Status:Active Ulcer Comments:Father. Status:Active Unknown Family Member Name Dates Details Autoimmune Comments:Sister. Status:Active Cancer Comments:Father. grandparent Status:Active Diabetes Comments:Father. Status:Active Emotional/Anxiety/Depression /Suicide Comments:Mother. Status:Active Heart/Lung Disease Status:Active High Blood Pressure Comments:Mother, Brother, Si ster Status:Active High Cholesterol Comments:Father. Brother. Si ster. Status:Active Kidney Disease Comments:Sister. Status:Active Stroke Comments:Mother. Father. Status:Active Thyroid Comments:Mother. Status:Active Ulcer Comments:Father. Status:Active Unknown Family Member Name Dates Details Autoimmune Comments:Sister. Status:Active Cancer Comments:Father. grandparent Status:Active Diabetes Comments:Father. Status:Active Emotional/Anxiety/Depression /Suicide Comments:Mother. Status:Active Heart/Lung Disease Status:Active High Blood Pressure Comments:Mother, Brother, Si ster Status:Active High Cholesterol Comments:Father. Brother. Si ster. Status:Active Kidney Disease Comments:Sister. Status:Active Stroke Comments:Mother. Father. Status:Active Thyroid Comments:Mother. Status:Active Ulcer Comments:Father. Status:Active Unknown Family Member Name Dates Details Autoimmune Comments:Sister. Status:Active Cancer Comments:Father. grandparent Status:Active Diabetes Comments:Father. Status:Active Emotional/Anxiety/Depression /Suicide Comments:Mother. Status:Active Heart/Lung Disease Status:Active High Blood Pressure Comments:Mother, Brother, Si ster Status:Active High Cholesterol Comments:Father. Brother. Si ster. Status:Active Kidney Disease Comments:Sister. Status:Active Stroke Comments:Mother. Father. Status:Active Thyroid Comments:Mother. Status:Active Ulcer Comments:Father. Status:Active Unknown Family Member Name Dates Details Autoimmune Comments:Sister. Status:Active Cancer Comments:Father. grandparent Status:Active Diabetes Comments:Father. Status:Active Emotional/Anxiety/Depression /Suicide Comments:Mother. Status:Active Heart/Lung Disease Status:Active High Blood Pressure Comments:Mother, Brother, Si ster Status:Active High Cholesterol Comments:Father. Brother. Si ster. Status:Active Kidney Disease Comments:Sister. Status:Active Stroke Comments:Mother. Father. Status:Active Thyroid Comments:Mother. Status:Active Ulcer Comments:Father. Status:Active Unknown Family Member Name Dates Details Autoimmune Comments:Sister. Status:Active Cancer Comments:Father. grandparent Status:Active Diabetes Comments:Father. Status:Active Emotional/Anxiety/Depression /Suicide Comments:Mother. Status:Active Heart/Lung Disease Status:Active High Blood Pressure Comments:Mother, Brother, Si ster Status:Active High Cholesterol Comments:Father. Brother. Si ster. Status:Active Kidney Disease Comments:Sister. Status:Active Stroke Comments:Mother. Father. Status:Active Thyroid Comments:Mother. Status:Active Ulcer Comments:Father. Status:Active Unknown Family Member Name Dates Details Autoimmune Comments:Sister. Status:Active Cancer Comments:Father. grandparent Status:Active Diabetes Comments:Father. Status:Active Emotional/Anxiety/Depression /Suicide Comments:Mother. Status:Active Heart/Lung Disease Status:Active High Blood Pressure Comments:Mother, Brother, Si ster Status:Active High Cholesterol Comments:Father. Brother. Si ster. Status:Active Kidney Disease Comments:Sister. Status:Active Stroke Comments:Mother. Father. Status:Active Thyroid Comments:Mother. Status:Active Ulcer Comments:Father. Status:Active Unknown Family Member Name Dates Details Autoimmune Comments:Sister. Status:Active Cancer Comments:Father. grandparent Status:Active Diabetes Comments:Father. Status:Active Emotional/Anxiety/Depression /Suicide Comments:Mother. Status:Active Heart/Lung Disease Status:Active High Blood Pressure Comments:Mother, Brother, Si ster Status:Active High Cholesterol Comments:Father. Brother. Si ster. Status:Active Kidney Disease Comments:Sister. Status:Active Stroke Comments:Mother. Father. Status:Active Thyroid Comments:Mother. Status:Active Ulcer Comments:Father. Status:Active Unknown Family Member Name Dates Details Autoimmune Comments:Sister. Status:Active Cancer Comments:Father. grandparent Status:Active Diabetes Comments:Father. Status:Active Emotional/Anxiety/Depression /Suicide Comments:Mother. Status:Active Heart/Lung Disease Status:Active High Blood Pressure Comments:Mother, Brother, Si ster Status:Active High Cholesterol Comments:Father. Brother. Si ster. Status:Active Kidney Disease Comments:Sister. Status:Active Stroke Comments:Mother. Father. Status:Active Thyroid Comments:Mother. Status:Active Ulcer Comments:Father. Status:Active Unknown Family Member Name Dates Details Autoimmune Comments:Sister. Status:Active Cancer Comments:Father. grandparent Status:Active Diabetes Comments:Father. Status:Active Emotional/Anxiety/Depression /Suicide Comments:Mother. Status:Active Heart/Lung Disease Status:Active High Blood Pressure Comments:Mother, Brother, Si ster Status:Active High Cholesterol Comments:Father. Brother. Si ster. Status:Active Kidney Disease Comments:Sister. Status:Active Stroke Comments:Mother. Father. Status:Active Thyroid Comments:Mother. Status:Active Ulcer Comments:Father. Status:Active Unknown Family Member Name Dates Details Autoimmune Comments:Sister. Status:Active Cancer Comments:Father. grandparent Status:Active Diabetes Comments:Father. Status:Active Emotional/Anxiety/Depression /Suicide Comments:Mother. Status:Active Heart/Lung Disease Status:Active High Blood Pressure Comments:Mother, Brother, Si ster Status:Active High Cholesterol Comments:Father. Brother. Si ster. Status:Active Kidney Disease Comments:Sister. Status:Active Stroke Comments:Mother. Father. Status:Active Thyroid Comments:Mother. Status:Active Ulcer Comments:Father. Status:Active Unknown Family Member Name Dates Details Autoimmune Comments:Sister. Status:Active Cancer Comments:Father. grandparent Status:Active Diabetes Comments:Father. Status:Active Emotional/Anxiety/Depression /Suicide Comments:Mother. Status:Active Heart/Lung Disease Status:Active High Blood Pressure Comments:Mother, Brother, Si ster Status:Active High Cholesterol Comments:Father. Brother. Si ster. Status:Active Kidney Disease Comments:Sister. Status:Active Stroke Comments:Mother. Father. Status:Active Thyroid Comments:Mother. Status:Active Ulcer Comments:Father. Status:Active Relationship Condition Age at Onset Recorded Date/T rocky father Malignant neoplasm Unknown Diabetes mellitus Unknown Cerebrovascular accident (CVA) Unknown Ulcerative lesion Unknown grandfather Malignant neoplasm Unknown mother Hypertension Unknown Disorder of thyroid Unknown brother Hypertension Unknown sister Hypertension Unknown Kidney disorder Unknown Autoimmune disease Unknown Unknown Family Member Name Dates Details Autoimmune Comments:Sister. Status:Active Cancer Comments:Father. grandparent Status:Active Diabetes Comments:Father. Status:Active Emotional/Anxiety/Depression /Suicide Comments:Mother. Status:Active Heart/Lung Disease Status:Active High Blood Pressure Comments:Mother, Brother, Si ster Status:Active High Cholesterol Comments:Father. Brother. Si ster. Status:Active Kidney Disease Comments:Sister. Status:Active Stroke Comments:Mother. Father. Status:Active Thyroid Comments:Mother. Status:Active Ulcer Comments:Father. Status:Active Unknown Family Member Name Dates Details Autoimmune Comments:Sister. Status:Active Cancer Comments:Father. grandparent Status:Active Diabetes Comments:Father. Status:Active Emotional/Anxiety/Depression /Suicide Comments:Mother. Status:Active Heart/Lung Disease Status:Active High Blood Pressure Comments:Mother, Brother, Si ster Status:Active High Cholesterol Comments:Father. Brother. Si ster. Status:Active Kidney Disease Comments:Sister. Status:Active Stroke Comments:Mother. Father. Status:Active Thyroid Comments:Mother. Status:Active Ulcer Comments:Father. Status:Active Unknown Family Member Name Dates Details Autoimmune Comments:Sister. Status:Active Cancer Comments:Father. grandparent Status:Active Diabetes Comments:Father. Status:Active Emotional/Anxiety/Depression /Suicide Comments:Mother. Status:Active Heart/Lung Disease Status:Active High Blood Pressure Comments:Mother, Brother, Si ster Status:Active High Cholesterol Comments:Father. Brother. Si ster. Status:Active Kidney Disease Comments:Sister. Status:Active Stroke Comments:Mother. Father. Status:Active Thyroid Comments:Mother. Status:Active Ulcer Comments:Father. Status:Active Unknown Family Member Name Dates Details Autoimmune Comments:Sister. Status:Active Cancer Comments:Father. grandparent Status:Active Diabetes Comments:Father. Status:Active Emotional/Anxiety/Depression /Suicide Comments:Mother. Status:Active Heart/Lung Disease Status:Active High Blood Pressure Comments:Mother, Brother, Si ster Status:Active High Cholesterol Comments:Father. Brother. Si ster. Status:Active Kidney Disease Comments:Sister. Status:Active Stroke Comments:Mother. Father. Status:Active Thyroid Comments:Mother. Status:Active Ulcer Comments:Father. Status:Active Unknown Family Member Name Dates Details Autoimmune Comments:Sister. Status:Active Cancer Comments:Father. grandparent Status:Active Diabetes Comments:Father. Status:Active Emotional/Anxiety/Depression /Suicide Comments:Mother. Status:Active Heart/Lung Disease Status:Active High Blood Pressure Comments:Mother, Brother, Si ster Status:Active High Cholesterol Comments:Father. Brother. Si ster. Status:Active Kidney Disease Comments:Sister. Status:Active Stroke Comments:Mother. Father. Status:Active Thyroid Comments:Mother. Status:Active Ulcer Comments:Father. Status:Active Unknown Family Member Name Dates Details Autoimmune Comments:Sister. Status:Active Cancer Comments:Father. grandparent Status:Active Diabetes Comments:Father. Status:Active Emotional/Anxiety/Depression /Suicide Comments:Mother. Status:Active Heart/Lung Disease Status:Active High Blood Pressure Comments:Mother, Brother, Si ster Status:Active High Cholesterol Comments:Father. Brother. Si ster. Status:Active Kidney Disease Comments:Sister. Status:Active Stroke Comments:Mother. Father. Status:Active Thyroid Comments:Mother. Status:Active Ulcer Comments:Father. Status:Active Unknown Family Member Name Dates Details Autoimmune Comments:Sister. Status:Active Cancer Comments:Father. grandparent Status:Active Diabetes Comments:Father. Status:Active Emotional/Anxiety/Depression /Suicide Comments:Mother. Status:Active Heart/Lung Disease Status:Active High Blood Pressure Comments:Mother, Brother, Si ster Status:Active High Cholesterol Comments:Father. Brother. Si ster. Status:Active Kidney Disease Comments:Sister. Status:Active Stroke Comments:Mother. Father. Status:Active Thyroid Comments:Mother. Status:Active Ulcer Comments:Father. Status:Active Unknown Family Member Name Dates Details Autoimmune Comments:Sister. Status:Active Cancer Comments:Father. grandparent Status:Active Diabetes Comments:Father. Status:Active Emotional/Anxiety/Depression /Suicide Comments:Mother. Status:Active Heart/Lung Disease Status:Active High Blood Pressure Comments:Mother, Brother, Si ster Status:Active High Cholesterol Comments:Father. Brother. Si ster. Status:Active Kidney Disease Comments:Sister. Status:Active Stroke Comments:Mother. Father. Status:Active Thyroid Comments:Mother. Status:Active Ulcer Comments:Father. Status:Active Unknown Family Member Name Dates Details Autoimmune Comments:Sister. Status:Active Cancer Comments:Father. grandparent Status:Active Diabetes Comments:Father. Status:Active Emotional/Anxiety/Depression /Suicide Comments:Mother. Status:Active Heart/Lung Disease Status:Active High Blood Pressure Comments:Mother, Brother, Si ster Status:Active High Cholesterol Comments:Father. Brother. Si ster. Status:Active Kidney Disease Comments:Sister. Status:Active Stroke Comments:Mother. Father. Status:Active Thyroid Comments:Mother. Status:Active Ulcer Comments:Father. Status:Active Unknown Family Member Name Dates Details Autoimmune Comments:Sister. Status:Active Cancer Comments:Father. grandparent Status:Active Diabetes Comments:Father. Status:Active Emotional/Anxiety/Depression /Suicide Comments:Mother. Status:Active Heart/Lung Disease Status:Active High Blood Pressure Comments:Mother, Brother, Si ster Status:Active High Cholesterol Comments:Father. Brother. Si ster. Status:Active Kidney Disease Comments:Sister. Status:Active Stroke Comments:Mother. Father. Status:Active Thyroid Comments:Mother. Status:Active Ulcer Comments:Father. Status:Active Unknown Family Member Name Dates Details Autoimmune Comments:Sister. Status:Active Cancer Comments:Father. grandparent Status:Active Diabetes Comments:Father. Status:Active Emotional/Anxiety/Depression /Suicide Comments:Mother. Status:Active Heart/Lung Disease Status:Active High Blood Pressure Comments:Mother, Brother, Si ster Status:Active High Cholesterol Comments:Father. Brother. Si ster. Status:Active Kidney Disease Comments:Sister. Status:Active Stroke Comments:Mother. Father. Status:Active Thyroid Comments:Mother. Status:Active Ulcer Comments:Father. Status:Active Unknown Family Member Name Dates Details Autoimmune Comments:Sister. Status:Active Cancer Comments:Father. grandparent Status:Active Diabetes Comments:Father. Status:Active Emotional/Anxiety/Depression /Suicide Comments:Mother. Status:Active Heart/Lung Disease Status:Active High Blood Pressure Comments:Mother, Brother, Si ster Status:Active High Cholesterol Comments:Father. Brother. Si ster. Status:Active Kidney Disease Comments:Sister. Status:Active Stroke Comments:Mother. Father. Status:Active Thyroid Comments:Mother. Status:Active Ulcer Comments:Father. Status:Active Unknown Family Member Name Dates Details Autoimmune Comments:Sister. Status:Active Cancer Comments:Father. grandparent Status:Active Diabetes Comments:Father. Status:Active Emotional/Anxiety/Depression /Suicide Comments:Mother. Status:Active Heart/Lung Disease Status:Active High Blood Pressure Comments:Mother, Brother, Si ster Status:Active High Cholesterol Comments:Father. Brother. Si ster. Status:Active Kidney Disease Comments:Sister. Status:Active Stroke Comments:Mother. Father. Status:Active Thyroid Comments:Mother. Status:Active Ulcer Comments:Father. Status:Active Unknown Family Member Name Dates Details Autoimmune Comments:Sister. Status:Active Cancer Comments:Father. grandparent Status:Active Diabetes Comments:Father. Status:Active Emotional/Anxiety/Depression /Suicide Comments:Mother. Status:Active Heart/Lung Disease Status:Active High Blood Pressure Comments:Mother, Brother, Si ster Status:Active High Cholesterol Comments:Father. Brother. Si ster. Status:Active Kidney Disease Comments:Sister. Status:Active Stroke Comments:Mother. Father. Status:Active Thyroid Comments:Mother. Status:Active Ulcer Comments:Father. Status:Active Unknown Family Member Name Dates Details Autoimmune Comments:Sister. Status:Active Cancer Comments:Father. grandparent Status:Active Diabetes Comments:Father. Status:Active Emotional/Anxiety/Depression /Suicide Comments:Mother. Status:Active Heart/Lung Disease Status:Active High Blood Pressure Comments:Mother, Brother, Si ster Status:Active High Cholesterol Comments:Father. Brother. Si ster. Status:Active Kidney Disease Comments:Sister. Status:Active Stroke Comments:Mother. Father. Status:Active Thyroid Comments:Mother. Status:Active Ulcer Comments:Father. Status:Active Unknown Family Member Name Dates Details Autoimmune Comments:Sister. Status:Active Cancer Comments:Father. grandparent Status:Active Diabetes Comments:Father. Status:Active Emotional/Anxiety/Depression /Suicide Comments:Mother. Status:Active Heart/Lung Disease Status:Active High Blood Pressure Comments:Mother, Brother, Si ster Status:Active High Cholesterol Comments:Father. Brother. Si ster. Status:Active Kidney Disease Comments:Sister. Status:Active Stroke Comments:Mother. Father. Status:Active Thyroid Comments:Mother. Status:Active Ulcer Comments:Father. Status:Active Unknown Family Member Name Dates Details Autoimmune Comments:Sister. Status:Active Cancer Comments:Father. grandparent Status:Active Diabetes Comments:Father. Status:Active Emotional/Anxiety/Depression /Suicide Comments:Mother. Status:Active Heart/Lung Disease Status:Active High Blood Pressure Comments:Mother, Brother, Si ster Status:Active High Cholesterol Comments:Father. Brother. Si ster. Status:Active Kidney Disease Comments:Sister. Status:Active Stroke Comments:Mother. Father. Status:Active Thyroid Comments:Mother. Status:Active Ulcer Comments:Father. Status:Active Unknown Family Member Name Dates Details Autoimmune Comments:Sister. Status:Active Cancer Comments:Father. grandparent Status:Active Diabetes Comments:Father. Status:Active Emotional/Anxiety/Depression /Suicide Comments:Mother. Status:Active Heart/Lung Disease Status:Active High Blood Pressure Comments:Mother, Brother, Si ster Status:Active High Cholesterol Comments:Father. Brother. Si ster. Status:Active Kidney Disease Comments:Sister. Status:Active Stroke Comments:Mother. Father. Status:Active Thyroid Comments:Mother. Status:Active Ulcer Comments:Father. Status:Active Unknown Family Member Name Dates Details Autoimmune Comments:Sister. Status:Active Cancer Comments:Father. grandparent Status:Active Diabetes Comments:Father. Status:Active Emotional/Anxiety/Depression /Suicide Comments:Mother. Status:Active Heart/Lung Disease Status:Active High Blood Pressure Comments:Mother, Brother, Si ster Status:Active High Cholesterol Comments:Father. Brother. Si ster. Status:Active Kidney Disease Comments:Sister. Status:Active Stroke Comments:Mother. Father. Status:Active Thyroid Comments:Mother. Status:Active Ulcer Comments:Father. Status:Active Unknown Family Member Name Dates Details Autoimmune Comments:Sister. Status:Active Cancer Comments:Father. grandparent Status:Active Diabetes Comments:Father. Status:Active Emotional/Anxiety/Depression /Suicide Comments:Mother. Status:Active Heart/Lung Disease Status:Active High Blood Pressure Comments:Mother, Brother, Si ster Status:Active High Cholesterol Comments:Father. Brother. Si ster. Status:Active Kidney Disease Comments:Sister. Status:Active Stroke Comments:Mother. Father. Status:Active Thyroid Comments:Mother. Status:Active Ulcer Comments:Father. Status:Active Unknown Family Member Name Dates Details Autoimmune Comments:Sister. Status:Active Cancer Comments:Father. grandparent Status:Active Diabetes Comments:Father. Status:Active Emotional/Anxiety/Depression /Suicide Comments:Mother. Status:Active Heart/Lung Disease Status:Active High Blood Pressure Comments:Mother, Brother, Si ster Status:Active High Cholesterol Comments:Father. Brother. Si ster. Status:Active Kidney Disease Comments:Sister. Status:Active Stroke Comments:Mother. Father. Status:Active Thyroid Comments:Mother. Status:Active Ulcer Comments:Father. Status:Active Unknown Family Member Name Dates Details Autoimmune Comments:Sister. Status:Active Cancer Comments:Father. grandparent Status:Active Diabetes Comments:Father. Status:Active Emotional/Anxiety/Depression /Suicide Comments:Mother. Status:Active Heart/Lung Disease Status:Active High Blood Pressure Comments:Mother, Brother, Si ster Status:Active High Cholesterol Comments:Father. Brother. Si ster. Status:Active Kidney Disease Comments:Sister. Status:Active Stroke Comments:Mother. Father. Status:Active Thyroid Comments:Mother. Status:Active Ulcer Comments:Father. Status:Active Unknown Family Member Name Dates Details Autoimmune Comments:Sister. Status:Active Cancer Comments:Father. grandparent Status:Active Diabetes Comments:Father. Status:Active Emotional/Anxiety/Depression /Suicide Comments:Mother. Status:Active Heart/Lung Disease Status:Active High Blood Pressure Comments:Mother, Brother, Si ster Status:Active High Cholesterol Comments:Father. Brother. Si ster. Status:Active Kidney Disease Comments:Sister. Status:Active Stroke Comments:Mother. Father. Status:Active Thyroid Comments:Mother. Status:Active Ulcer Comments:Father. Status:Active Unknown Family Member Name Dates Details Autoimmune Comments:Sister. Status:Active Cancer Comments:Father. grandparent Status:Active Diabetes Comments:Father. Status:Active Emotional/Anxiety/Depression /Suicide Comments:Mother. Status:Active Heart/Lung Disease Status:Active High Blood Pressure Comments:Mother, Brother, Si ster Status:Active High Cholesterol Comments:Father. Brother. Si ster. Status:Active Kidney Disease Comments:Sister. Status:Active Stroke Comments:Mother. Father. Status:Active Thyroid Comments:Mother. Status:Active Ulcer Comments:Father. Status:Active Unknown Family Member Name Dates Details Autoimmune Comments:Sister. Status:Active Cancer Comments:Father. grandparent Status:Active Diabetes Comments:Father. Status:Active Emotional/Anxiety/Depression /Suicide Comments:Mother. Status:Active Heart/Lung Disease Status:Active High Blood Pressure Comments:Mother, Brother, Si ster Status:Active High Cholesterol Comments:Father. Brother. Si ster. Status:Active Kidney Disease Comments:Sister. Status:Active Stroke Comments:Mother. Father. Status:Active Thyroid Comments:Mother. Status:Active Ulcer Comments:Father. Status:Active Unknown Family Member Name Dates Details Autoimmune Comments:Sister. Status:Active Cancer Comments:Father. grandparent Status:Active Diabetes Comments:Father. Status:Active Emotional/Anxiety/Depression /Suicide Comments:Mother. Status:Active Heart/Lung Disease Status:Active High Blood Pressure Comments:Mother, Brother, Si ster Status:Active High Cholesterol Comments:Father. Brother. Si ster. Status:Active Kidney Disease Comments:Sister. Status:Active Stroke Comments:Mother. Father. Status:Active Thyroid Comments:Mother. Status:Active Ulcer Comments:Father. Status:Active Unknown Family Member Name Dates Details Autoimmune Comments:Sister. Status:Active Cancer Comments:Father. grandparent Status:Active Diabetes Comments:Father. Status:Active Emotional/Anxiety/Depression /Suicide Comments:Mother. Status:Active Heart/Lung Disease Status:Active High Blood Pressure Comments:Mother, Brother, Si ster Status:Active High Cholesterol Comments:Father. Brother. Si ster. Status:Active Kidney Disease Comments:Sister. Status:Active Stroke Comments:Mother. Father. Status:Active Thyroid Comments:Mother. Status:Active Ulcer Comments:Father. Status:Active Unknown Family Member Name Dates Details Autoimmune Comments:Sister. Status:Active Cancer Comments:Father. grandparent Status:Active Diabetes Comments:Father. Status:Active Emotional/Anxiety/Depression /Suicide Comments:Mother. Status:Active Heart/Lung Disease Status:Active High Blood Pressure Comments:Mother, Brother, Si ster Status:Active High Cholesterol Comments:Father. Brother. Si ster. Status:Active Kidney Disease Comments:Sister. Status:Active Stroke Comments:Mother. Father. Status:Active Thyroid Comments:Mother. Status:Active Ulcer Comments:Father. Status:Active Unknown Family Member Name Dates Details Autoimmune Comments:Sister. Status:Active Cancer Comments:Father. grandparent Status:Active Diabetes Comments:Father. Status:Active Emotional/Anxiety/Depression /Suicide Comments:Mother. Status:Active Heart/Lung Disease Status:Active High Blood Pressure Comments:Mother, Brother, Si ster Status:Active High Cholesterol Comments:Father. Brother. Si ster. Status:Active Kidney Disease Comments:Sister. Status:Active Stroke Comments:Mother. Father. Status:Active Thyroid Comments:Mother. Status:Active Ulcer Comments:Father. Status:Active Unknown Family Member Name Dates Details Autoimmune Comments:Sister. Status:Active Cancer Comments:Father. grandparent Status:Active Diabetes Comments:Father. Status:Active Emotional/Anxiety/Depression /Suicide Comments:Mother. Status:Active Heart/Lung Disease Status:Active High Blood Pressure Comments:Mother, Brother, Si ster Status:Active High Cholesterol Comments:Father. Brother. Si ster. Status:Active Kidney Disease Comments:Sister. Status:Active Stroke Comments:Mother. Father. Status:Active Thyroid Comments:Mother. Status:Active Ulcer Comments:Father. Status:Active Unknown Family Member Name Dates Details Autoimmune Comments:Sister. Status:Active Cancer Comments:Father. grandparent Status:Active Diabetes Comments:Father. Status:Active Emotional/Anxiety/Depression /Suicide Comments:Mother. Status:Active Heart/Lung Disease Status:Active High Blood Pressure Comments:Mother, Brother, Si ster Status:Active High Cholesterol Comments:Father. Brother. Si ster. Status:Active Kidney Disease Comments:Sister. Status:Active Stroke Comments:Mother. Father. Status:Active Thyroid Comments:Mother. Status:Active Ulcer Comments:Father. Status:Active Unknown Family Member Name Dates Details Autoimmune Comments:Sister. Status:Active Cancer Comments:Father. grandparent Status:Active Diabetes Comments:Father. Status:Active Emotional/Anxiety/Depression /Suicide Comments:Mother. Status:Active Heart/Lung Disease Status:Active High Blood Pressure Comments:Mother, Brother, Si ster Status:Active High Cholesterol Comments:Father. Brother. Si ster. Status:Active Kidney Disease Comments:Sister. Status:Active Stroke Comments:Mother. Father. Status:Active Thyroid Comments:Mother. Status:Active Ulcer Comments:Father. Status:Active Unknown Family Member Name Dates Details Autoimmune Comments:Sister. Status:Active Cancer Comments:Father. grandparent Status:Active Diabetes Comments:Father. Status:Active Emotional/Anxiety/Depression /Suicide Comments:Mother. Status:Active Heart/Lung Disease Status:Active High Blood Pressure Comments:Mother, Brother, Si ster Status:Active High Cholesterol Comments:Father. Brother. Si ster. Status:Active Kidney Disease Comments:Sister. Status:Active Stroke Comments:Mother. Father. Status:Active Thyroid Comments:Mother. Status:Active Ulcer Comments:Father. Status:Active Unknown Family Member Name Dates Details Autoimmune Comments:Sister. Status:Active Cancer Comments:Father. grandparent Status:Active Diabetes Comments:Father. Status:Active Emotional/Anxiety/Depression /Suicide Comments:Mother. Status:Active Heart/Lung Disease Status:Active High Blood Pressure Comments:Mother, Brother, Si ster Status:Active High Cholesterol Comments:Father. Brother. Si ster. Status:Active Kidney Disease Comments:Sister. Status:Active Stroke Comments:Mother. Father. Status:Active Thyroid Comments:Mother. Status:Active Ulcer Comments:Father. Status:Active Unknown Family Member Name Dates Details Autoimmune Comments:Sister. Status:Active Cancer Comments:Father. grandparent Status:Active Diabetes Comments:Father. Status:Active Emotional/Anxiety/Depression /Suicide Comments:Mother. Status:Active Heart/Lung Disease Status:Active High Blood Pressure Comments:Mother, Brother, Si ster Status:Active High Cholesterol Comments:Father. Brother. Si ster. Status:Active Kidney Disease Comments:Sister. Status:Active Stroke Comments:Mother. Father. Status:Active Thyroid Comments:Mother. Status:Active Ulcer Comments:Father. Status:Active Unknown Family Member Name Dates Details Autoimmune Comments:Sister. Status:Active Cancer Comments:Father. grandparent Status:Active Diabetes Comments:Father. Status:Active Emotional/Anxiety/Depression /Suicide Comments:Mother. Status:Active Heart/Lung Disease Status:Active High Blood Pressure Comments:Mother, Brother, Si ster Status:Active High Cholesterol Comments:Father. Brother. Si ster. Status:Active Kidney Disease Comments:Sister. Status:Active Stroke Comments:Mother. Father. Status:Active Thyroid Comments:Mother. Status:Active Ulcer Comments:Father. Status:Active Unknown Family Member Name Dates Details Autoimmune Comments:Sister. Status:Active Cancer Comments:Father. grandparent Status:Active Diabetes Comments:Father. Status:Active Emotional/Anxiety/Depression /Suicide Comments:Mother. Status:Active Heart/Lung Disease Status:Active High Blood Pressure Comments:Mother, Brother, Si ster Status:Active High Cholesterol Comments:Father. Brother. Si ster. Status:Active Kidney Disease Comments:Sister. Status:Active Stroke Comments:Mother. Father. Status:Active Thyroid Comments:Mother. Status:Active Ulcer Comments:Father. Status:Active Unknown Family Member Name Dates Details Autoimmune Comments:Sister. Status:Active Cancer Comments:Father. grandparent Status:Active Diabetes Comments:Father. Status:Active Emotional/Anxiety/Depression /Suicide Comments:Mother. Status:Active Heart/Lung Disease Status:Active High Blood Pressure Comments:Mother, Brother, Si ster Status:Active High Cholesterol Comments:Father. Brother. Si ster. Status:Active Kidney Disease Comments:Sister. Status:Active Stroke Comments:Mother. Father. Status:Active Thyroid Comments:Mother. Status:Active Ulcer Comments:Father. Status:Active Unknown Family Member Name Dates Details Autoimmune Comments:Sister. Status:Active Cancer Comments:Father. grandparent Status:Active Diabetes Comments:Father. Status:Active Emotional/Anxiety/Depression /Suicide Comments:Mother. Status:Active Heart/Lung Disease Status:Active High Blood Pressure Comments:Mother, Brother, Si ster Status:Active High Cholesterol Comments:Father. Brother. Si ster. Status:Active Kidney Disease Comments:Sister. Status:Active Stroke Comments:Mother. Father. Status:Active Thyroid Comments:Mother. Status:Active Ulcer Comments:Father. Status:Active Unknown Family Member Name Dates Details Autoimmune Comments:Sister. Status:Active Cancer Comments:Father. grandparent Status:Active Diabetes Comments:Father. Status:Active Emotional/Anxiety/Depression /Suicide Comments:Mother. Status:Active Heart/Lung Disease Status:Active High Blood Pressure Comments:Mother, Brother, Si ster Status:Active High Cholesterol Comments:Father. Brother. Si ster. Status:Active Kidney Disease Comments:Sister. Status:Active Stroke Comments:Mother. Father. Status:Active Thyroid Comments:Mother. Status:Active Ulcer Comments:Father. Status:Active Relationship Condition Age at [place]set Recorded Date/T rocky father Malignant neoplasm Unknown Diabetes mellitus Unknown Cerebrovascular accident (CVA) Unknown Ulcerative lesion Unknown grandfather Malignant neoplasm Unknown mother Hypertension Unknown Disorder of thyroid Unknown brother Hypertension Unknown Hyperlipidemia Unknown sister Hypertension Unknown Advance Directives Name Dates Details Immunization Registry [place] - Effective on 07/15/2020. Expiration date unspecified Effective:15-Jul-2020 Name Dates Details Immunization Registry [place] - Effective on 07/15/2020. Expiration date unspecified Effective:15-Jul-2020 Name Dates Details Immunization Registry [place] - Effective on 07/15/2020. Expiration date unspecified Effective:15-Jul-2020 Name Dates Details Immunization Registry [place] - Effective on 07/15/2020. Expiration date unspecified Effective:15-Jul-2020 Name Dates Details Immunization Registry [place] - Effective on 07/15/2020. Expiration date unspecified Effective:15-Jul-2020 Name Dates Details Immunization Registry [place] - Effective on 07/15/2020. Expiration date unspecified Effective:15-Jul-2020 Name Dates Details Immunization Registry [place] - Effective on 07/15/2020. Expiration date unspecified Effective:15-Jul-2020 Name Dates Details Immunization Registry [place] - Effective on 07/15/2020. Expiration date unspecified Effective:15-Jul-2020 Name Dates Details Immunization Registry [place] - Effective on 07/15/2020. Expiration date unspecified Effective:15-Jul-2020 Name Dates Details Immunization Registry [place] - Effective on 07/15/2020. Expiration date unspecified Effective:15-Jul-2020 Name Dates Details Immunization Registry [place] - Effective on 07/15/2020. Expiration date unspecified Effective:15-Jul-2020 Name Dates Details Immunization Registry [place] - Effective on 07/15/2020. Expiration date unspecified Effective:15-Jul-2020 Name Dates Details Immunization Registry [place] - Effective on 07/15/2020. Expiration date unspecified Effective:15-Jul-2020 Name Dates Details Immunization Registry [place] - Effective on 07/15/2020. Expiration date unspecified Effective:15-Jul-2020 Name Dates Details Immunization Registry [place] - Effective on 07/15/2020. Expiration date unspecified Effective:15-Jul-2020 Name Dates Details Immunization Registry [place] - Effective on 07/15/2020. Expiration date unspecified Effective:15-Jul-2020 Name Dates Details Immunization Registry [place] - Effective on 07/15/2020. Expiration date unspecified Effective:15-Jul-2020 Name Dates Details Immunization Registry [place] - Effective on 07/15/2020. Expiration date unspecified Effective:15-Jul-2020 Name Dates Details Immunization Registry [place] - Effective on 07/15/2020. Expiration date unspecified Effective:15-Jul-2020 Name Dates Details Immunization Registry [place] - Effective on 07/15/2020. Expiration date unspecified Effective:15-Jul-2020 Name Dates Details Immunization Registry [place] - Effective on 07/15/2020. Expiration date unspecified Effective:15-Jul-2020 Name Dates Details Immunization Registry [place] - Effective on 07/15/2020. Expiration date unspecified Effective:15-Jul-2020 Name Dates Details Immunization Registry [place] - Effective on 07/15/2020. Expiration date unspecified Effective:15-Jul-2020 Name Dates Details Immunization Registry [place] - Effective on 07/15/2020. Expiration date unspecified Effective:15-Jul-2020 Name Dates Details Immunization Registry [place] - Effective on 07/15/2020. Expiration date unspecified Effective:15-Jul-2020 Name Dates Details Immunization Registry [place] - Effective on 07/15/2020. Expiration date unspecified Effective:15-Jul-2020 Advance Directive Response Recorded Date/ Time Name of Medical Power of Managing Consultant Clinical Professor ? September 21, 2021 6:15pm Living Will Yes September 21, 2021 6:15pm Power of Managing Consultant Clinical Professor Yes September 21 6:15pm Name Dates Details Immunization Registry [place] - Effective on 07/15/2020. Expiration date unspecified Effective:15-Jul-2020 Name Dates Details Immunization Registry [place] - Effective on 07/15/2020. Expiration date unspecified Effective:15-Jul-2020 Advance Directive Response Recorded Date/ Time Name of Medical Power of Managing Consultant Clinical Professor ? September 21, 2021 10:09pm Living Will No September 21, 2021 10:09pm Power of Managing Consultant Clinical Professor No September 21 10:09pm Name Dates Details Immunization Registry [place] - Effective on 07/15/2020. Expiration date unspecified Effective:15-Jul-2020 Name Dates Details Immunization Registry [place] - Effective on 07/15/2020. Expiration date unspecified Effective:15-Jul-2020 Name Dates Details Immunization Registry [place] - Effective on 07/15/2020. Expiration date unspecified Effective:15-Jul-2020 Name Dates Details Immunization Registry [place] - Effective on 07/15/2020. Expiration date unspecified Effective:15-Jul-2020 Name Dates Details Immunization Registry [place] - Effective on 07/15/2020. Expiration date unspecified Effective:15-Jul-2020 Name Dates Details Immunization Registry [place] - Effective on 07/15/2020. Expiration date unspecified Effective:15-Jul-2020 Name Dates Details Immunization Registry [place] - Effective on 07/15/2020. Expiration date unspecified Effective:15-Jul-2020 Name Dates Details Immunization Registry [place] - Effective on 07/15/2020. Expiration date unspecified Effective:15-Jul-2020 Name Dates Details Immunization Registry [place] - Effective on 07/15/2020. Expiration date unspecified Effective:15-Jul-2020 Name Dates Details Immunization Registry [place] - Effective on 07/15/2020. Expiration date unspecified Effective:15-Jul-2020 Advance Directive Response Recorded Date/ Time Living Will Yes February 20 12:02pm Power of Managing Consultant Clinical Professor No February 20, 2022 12:02pm Name Dates Details Immunization Registry [place] - Effective on 07/15/2020. Expiration date unspecified Effective:15-Jul-2020 Name Dates Details Immunization Registry [place] - Effective on 07/15/2020. Expiration date unspecified Effective:15-Jul-2020 Name Dates Details Immunization Registry [place] - Effective on 07/15/2020. Expiration date unspecified Effective:15-Jul-2020 Name Dates Details Immunization Registry [place] - Effective on 07/15/2020. Expiration date unspecified Effective:15-Jul-2020 Name Dates Details Immunization Registry [place] - Effective on 07/15/2020. Expiration date unspecified Effective:15-Jul-2020 Name Dates Details Immunization Registry [place] - Effective on 07/15/2020. Expiration date unspecified Effective:15-Jul-2020 Name Dates Details Immunization Registry [place] - Effective on 07/15/2020. Expiration date unspecified Effective:15-Jul-2020 Name Dates Details Immunization Registry [place] - Effective on 07/15/2020. Expiration date unspecified Effective:15-Jul-2020 Name Dates Details Immunization Registry [place] - Effective on 07/15/2020. Expiration date unspecified Effective:15-Jul-2020 Name Dates Details Immunization Registry [place] - Effective on 07/15/2020. Expiration date unspecified Effective:15-Jul-2020 Name Dates Details Immunization Registry [place] - Effective on 07/15/2020. Expiration date unspecified Effective:15-Jul-2020 Advance Directive Response Recorded Date/ Time Living Will Yes November 21, 2022 1:21pm Power of Managing Consultant Clinical Professor No October 1:21pm Name Dates Details Immunization Registry [place] - Effective on 07/15/2020. Expiration date unspecified Effective:15-Jul-2020 Name Dates Details Immunization Registry [place] - Effective on 07/15/2020. Expiration date unspecified Effective:15-Jul-2020 Name Dates Details Immunization Registry [place] - Effective on 07/15/2020. Expiration date unspecified Effective:15-Jul-2020 Name Dates Details Immunization Registry [place] - Effective on 07/15/2020. Expiration date unspecified Effective:15-Jul-2020 Advance Directive Response Recorded Date/ Time Living Will Yes March 17 1:43pm Power of Managing Consultant Clinical Professor No March 17, 2023 1:43pm Advance Directive Response Recorded Date/ Time Name of Medical Power of Managing Consultant Clinical Professor Beatrice Wynne ay March 31, 2023 11:59am Living Will Yes March 31 11:59am Power of Managing Consultant Clinical Professor Yes March 31, 2023 11:59am Chief Complaint and Reason for Visit Chief Complaint GAIT DISORDER, NECK PAIN, NYSTAGMUS CKD3 3 M FU Reason for Visit Abnormality of gait and mobility Essential tremor Myalgia of muscle of neck Neck pain Low back pain Chief Complaint CKD3 3 M FU COVID POS Reason for Visit Abnormality of gait and mobility Essential tremor Myalgia of muscle of neck Neck pain Low back pain Chief Complaint CKD3 3 M FU COVID POS TRIGGER POINT INJECTIONS URINARY FREQUENCY ACUTE KIDNEY INJURY, UTI Reason for Visit Abnormality of gait and mobility Essential tremor Myalgia of muscle of neck Neck pain Low back pain Myalgia of muscle of neck Neck pain Acute kidney injury UTI (urinary tract infection) Chief Complaint 3 M FU COVID POS TRIGGER POINT INJECTIONS URINARY FREQUENCY ACUTE KIDNEY INJURY, UTI ACUTE KIDNEY INJURY, UTI ACUTE KIDNEY INJURY, UTI Reason for Visit Abnormality of gait and mobility Essential tremor Myalgia of muscle of neck Neck pain Low back pain Myalgia of muscle of neck Neck pain Acute kidney injury UTI (urinary tract infection) Chief Complaint 3 M FU COVID POS TRIGGER POINT INJECTIONS URINARY FREQUENCY ACUTE KIDNEY INJURY, UTI ACUTE KIDNEY INJURY, UTI ACUTE KIDNEY INJURY, UTI 3 M FU SCREENING/ POSTMENOPAUSAL Reason for Visit Abnormality of gait and mobility Essential tremor Myalgia of muscle of neck Neck pain Low back pain Myalgia of muscle of neck Neck pain Acute kidney injury UTI (urinary tract infection) Abnormality of gait and mobility Essential tremor Neck pain Chief Complaint XRAY TRIGGER POINT INJECTIONS nosebleed CHEST PAIN 4 M FU Reason for Visit Dorsalgia Myalgia Fatigue Essential tremor Neck pain Chief Complaint TRIGGER POINT INJECT IONS nosebleed CHEST PAIN 4 M FU Reason for Visit Dorsalgia Myalgia Fatigue Essential tremor Neck pain Chief Complaint B12 inject XRAY 4 M FU B12 XRAY B12 inject LFT SHOULDER PAIN /RX HERE SCREENING KNEE PAIN Reason for Visit Fatigue Essential tremor Fatigue Myalgia of muscle of neck Neck pain Fatigue Fatigue Chief Complaint KNEE PAIN B12 inject TRIGGER POINT INJECTION B-12 EST NEW PT Headache, sinus congestion, drainage B12 inject 6 M FU RIGHT KNEE b12 RIGHT KNEE PAIN RIGHT KNEE Reason for Visit Fatigue Anxiety Essential tremor Fatigue Anxiety Essential tremor CYNTHIA (obstructive sleep apnea) Establishing care with new doctor, encounter for CKD (chronic kidney disease), stage III Mild intermittent asthma in adult without complication Essential hypertension Fatigue Anxiety Essential tremor Right knee pain Fatigue Right knee pain Chief Complaint TRIGGER POINT INJECT ION B-12 EST NEW PT Headache, sinus congestion, drainage B12 inject 6 M FU RIGHT KNEE b12 RIGHT KNEE PAIN RIGHT KNEE fall Reason for Visit Anxiety Essential tremor Fatigue Anxiety Essential tremor CYNTHIA (obstructive sleep apnea) Establishing care with new doctor, encounter for CKD (chronic kidney disease), stage III Mild intermittent asthma in adult without complication Essential hypertension Fatigue Anxiety Essential tremor Right knee pain Fatigue 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 Right knee pain Chief Complaint B-12 EST NEW PT Headache, sinus congestion, drainage B12 inject 6 M FU RIGHT KNEE b12 RIGHT KNEE PAIN RIGHT KNEE fall B12 inject 3 M FU Reason for Visit Fatigue Anxiety Essential tremor CYNTHIA (obstructive sleep apnea) Establishing care with new doctor, encounter for CKD (chronic kidney disease), stage III Mild intermittent asthma in adult without complication Essential hypertension Fatigue Anxiety Essential tremor Right knee pain Fatigue 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 Right knee pain Fatigue Anxiety Essential tremor CYNTHIA (obstructive sleep apnea) Double vision CKD (chronic kidney disease), stage III Mild intermittent asthma in adult without complication Essential hypertension Chief Complaint Admit Date B12 injection April 11, 2024 11:00am B12 inject May 14, 2024 9:5 9am B12 inject June 12, 2024 1:3 2pm B12 inject July 16, 2024 9:59a m Reason for Visit Admit Date Fatigue April 11, 2024 11:00am Fatigue May 14, 2024 9:5 9am Fatigue June 12, 2024 1:3 2pm Chief Complaint Admit Date B12 inject May 14, 2024 9:5 9am B12 inject June 12, 2024 1:3 2pm B12 inject July 16, 2024 9:59a m B12 inject August 16, 2024 1:55 pm Reason for Visit Admit Date Fatigue May 14, 2024 9:5 9am Fatigue June 12, 2024 1:3 2pm Fatigue July 16, 2024 9:59a m Chief Complaint Admit Date B12 inject June 12, 2024 1:3 2pm B12 inject July 16, 2024 9:59a m B12 inject August 16, 2024 1:55 pm B12 September 17, 2024 10:5 2am Reason for Visit Admit Date Fatigue June 12, 2024 1:3 2pm Fatigue July 16, 2024 9:59a m Fatigue August 16, 2024 1:55 pm Chief Complaint Admit Date B12 inject June 12, 2024 1:3 2pm B12 inject July 16, 2024 9:59a m B12 inject August 16, 2024 1:55 pm B12 September 17, 2024 10:5 2am 8 MO FU October 09, 2024 12 :53pm Reason for Visit Admit Date Fatigue June 12, 2024 1:3 2pm Fatigue July 16, 2024 9:59a m Fatigue August 16, 2024 1:55 pm Fatigue September 17, 2024 10:5 2am Osteopenia October 09, 2024 12 :53pm Anxiety October 09, 2024 12 :53pm Essential tremor October 09, 2024 12 :53pm Fatigue October 09, 2024 12 :53pm Chief Complaint Admit Date B12 inject July 16, 2024 9:59a m B12 inject August 16, 2024 1:55 pm B12 September 17, 2024 10:5 2am 8 MO FU October 09, 2024 12 :53pm B12 inject October 18, 2024 11 :22am Reason for Visit Admit Date Fatigue July 16, 2024 9:59a m Fatigue August 16, 2024 1:55 pm Fatigue September 17, 2024 10:5 2am Anxiety October 09, 2024 12 :53pm Essential tremor October 09, 2024 12 :53pm Fatigue October 09, 2024 12 :53pm Osteopenia October 09, 2024 12 :53pm Fatigue October 18, 2024 11 :22am Chief Complaint Admit Date B12 inject August 16, 2024 1:55 pm B12 September 17, 2024 10:5 2am 8 MO FU October 09, 2024 12 :53pm B12 inject October 18, 2024 11 :22am B12 inject November 19, 2024 11:17am Reason for Visit Admit Date Fatigue August 16, 2024 1:55 pm Fatigue September 17, 2024 10:5 2am Anxiety October 09, 2024 12 :53pm Essential tremor October 09, 2024 12 :53pm Fatigue October 09, 2024 12 :53pm Osteopenia October 09, 2024 12 :53pm Fatigue October 18, 2024 11 :22am Fatigue November 19, 2024 11:17am Chief Complaint Admit Date B12 September 17, 2024 10:5 2am 8 MO FU October 09, 2024 12 :53pm B12 inject October 18, 2024 11 :22am B12 inject November 19, 2024 11:17am B12 inject December 17, 2024 1 2:52pm Reason for Visit Admit Date Fatigue September 17, 2024 10:5 2am Anxiety October 09, 2024 12 :53pm Essential tremor October 09, 2024 12 :53pm Fatigue October 09, 2024 12 :53pm Osteopenia October 09, 2024 12 :53pm Fatigue October 18, 2024 11 :22am Fatigue November 19, 2024 11:17am Fatigue December 17, 2024 1 2:52pm Reason for Referral Specialty Diagnoses / Procedures Referred By Contac t Referred To Contact CT IMAGING Diagnoses Left lower quadrant abdominal pain Procedures CT ABD/PEL W IVCON CT ABD & PELVIS W/CONTRAST Podlogar, TIFFANY [email or web address].VP CLINICAL [address] [place] [address] [place] [address] Referral ID Status Reason Start Date Expiration Date V isits Requested Visits Authorized [id number] Closed Auto-Generate d Referral 01/03/2024 02/28/2024 2 2 Specialty Diagnoses / Procedures Referred By Contac t Referred To Contact General Surgery Diagnoses Skin cyst Procedures CONSULT TO GENERAL SURGERY OFFICE/OUTPATIENT [facility] 60 MINUTES Podlogar, TIFFANY [email or web address].VP CLINICAL [address] [place] [address] Referral ID Status Reason Start Date Expiration Date Visits Requested Visits Authorized [id number] Authorized PCP Requested Referral 01/05/2024 01/04/2025 1 1 Additional Source Comments INFORMATION SOURCE (unrecogn ized section and content) DATE CREATED AUTHOR 07/10/2020 [facility] ([place]) DATE CREATED AUTHOR AUTHOR'S ORGANIZ ATION 04/17/2022 [facility] DATE CREATED AUTHOR AUTHOR'S ORGANIZ ATION 08/16/2024 [facility] DATE CREATED AUTHOR AUTHOR'S ORGANIZ ATION 11/30/2024 [facility] DATE CREATED AUTHOR AUTHOR'S ORGANIZ ATION 12/10/2024 [facility] DATE CREATED AUTHOR AUTHOR'S ORGANIZ ATION 12/28/2024 [facility] Goals (unrecognized section and content) Goals may be documented in a n alternate sectionGoals may be documented in an alternate sectionGoals may be documented in an alternate sectionGoals may be documented in an alternate sectionGoals may be documented in an alternate sectionGoals may be documented in an alternate sectionGoals may be documented in an alternate sectionGoals may be documented in an alternate sectionGoals may be documented in an alternate sectionGoals may be documented in an alternate sectionGoals may be documented in an alternate sectionGoals may be documented in an alternate sectionGoals may be documented in an alternate sectionGoals may be documented in an alternate sectionGoals may be documented in an alternate section No data available for this sectionGoals may be documented in an alternate sectionGoals may be documented in an alternate section Source Comments (unrecognize d section and content) In the event this informatio n is protected by the Federal Confidentiality of Alcohol and Drug Abuse Patient Records regulations: The Federal rules restrict any use of the information to criminally investigate or prosecute any alcohol or drug abuse patient.[facility] the event this information is protected by the Federal Confidentiality of Alcohol and Drug Abuse Patient Records regulations: The Federal rules restrict any use of the information to criminally investigate or prosecute any alcohol or drug abuse patient.[facility] HospitalIn the event this information is protected by the Federal Confidentiality of Alcohol and Drug Abuse Patient Records regulations: The Federal rules restrict any use of the information to criminally investigate or prosecute any alcohol or drug abuse patient.[facility] HospitalIn the event this information is protected by the Federal Confidentiality of Alcohol and Drug Abuse Patient Records regulations: The Federal rules restrict any use of the information to criminally investigate or prosecute any alcohol or drug abuse patient.[facility] HospitalIn the event this information is protected by the Federal Confidentiality of Alcohol and Drug Abuse Patient Records regulations: The Federal rules restrict any use of the information to criminally investigate or prosecute any alcohol or drug abuse patient.[facility] HospitalIn the event this information is protected by the Federal Confidentiality of Alcohol and Drug Abuse Patient Records regulations: The Federal rules restrict any use of the information to criminally investigate or prosecute any alcohol or drug abuse patient.[facility] HospitalIn the event this information is protected by the Federal Confidentiality of Alcohol and Drug Abuse Patient Records regulations: The Federal rules restrict any use of the information to criminally investigate or prosecute any alcohol or drug abuse patient.[facility] HospitalIn the event this information is protected by the Federal Confidentiality of Alcohol and Drug Abuse Patient Records regulations: The Federal rules restrict any use of the information to criminally investigate or prosecute any alcohol or drug abuse patient.[facility] HospitalIn the event this information is protected by the Federal Confidentiality of Alcohol and Drug Abuse Patient Records regulations: The Federal rules restrict any use of the information to criminally investigate or prosecute any alcohol or drug abuse patient.[facility] HospitalIn the event this information is protected by the Federal Confidentiality of Alcohol and Drug Abuse Patient Records regulations: The Federal rules restrict any use of the information to criminally investigate or prosecute any alcohol or drug abuse patient.[facility] HospitalIn the event this information is protected by the Federal Confidentiality of Alcohol and Drug Abuse Patient Records regulations: The Federal rules restrict any use of the information to criminally investigate or prosecute any alcohol or drug abuse patient.[facility] HospitalIn the event this information is protected by the Federal Confidentiality of Alcohol and Drug Abuse Patient Records regulations: The Federal rules restrict any use of the information to criminally investigate or prosecute any alcohol or drug abuse patient.[facility] HospitalIn the event this information is protected by the Federal Confidentiality of Alcohol and Drug Abuse Patient Records regulations: The Federal rules restrict any use of the information to criminally investigate or prosecute any alcohol or drug abuse patient.[facility] HospitalIn the event this information is protected by the Federal Confidentiality of Alcohol and Drug Abuse Patient Records regulations: The Federal rules restrict any use of the information to criminally investigate or prosecute any alcohol or drug abuse patient.[facility] HospitalIn the event this information is protected by the Federal Confidentiality of Alcohol and Drug Abuse Patient Records regulations: The Federal rules restrict any use of the information to criminally investigate or prosecute any alcohol or drug abuse patient.[facility] HospitalIn the event this information is protected by the Federal Confidentiality of Alcohol and Drug Abuse Patient Records regulations: The Federal rules restrict any use of the information to criminally investigate or prosecute any alcohol or drug abuse patient.[facility] HospitalIn the event this information is protected by the Federal Confidentiality of Alcohol and Drug Abuse Patient Records regulations: The Federal rules restrict any use of the information to criminally investigate or prosecute any alcohol or drug abuse patient.[facility] HospitalIn the event this information is protected by the Federal Confidentiality of Alcohol and Drug Abuse Patient Records regulations: The Federal rules restrict any use of the information to criminally investigate or prosecute any alcohol or drug abuse patient.[facility] HospitalIn the event this information is protected by the Federal Confidentiality of Alcohol and Drug Abuse Patient Records regulations: The Federal rules restrict any use of the information to criminally investigate or prosecute any alcohol or drug abuse patient.[facility] HospitalIn the event this information is protected by the Federal Confidentiality of Alcohol and Drug Abuse Patient Records regulations: The Federal rules restrict any use of the information to criminally investigate or prosecute any alcohol or drug abuse patient.[facility] HospitalIn the event this information is protected by the Federal Confidentiality of Alcohol and Drug Abuse Patient Records regulations: The Federal rules restrict any use of the information to criminally investigate or prosecute any alcohol or drug abuse patient.[facility] HospitalIn the event this information is protected by the Federal Confidentiality of Alcohol and Drug Abuse Patient Records regulations: The Federal rules restrict any use of the information to criminally investigate or prosecute any alcohol or drug abuse patient.[facility] HospitalIn the event this information is protected by the Federal Confidentiality of Alcohol and Drug Abuse Patient Records regulations: The Federal rules restrict any use of the information to criminally investigate or prosecute any alcohol or drug abuse patient.[facility] HospitalIn the event this information is protected by the Federal Confidentiality of Alcohol and Drug Abuse Patient Records regulations: The Federal rules restrict any use of the information to criminally investigate or prosecute any alcohol or drug abuse patient.[facility] HospitalIn the event this information is protected by the Federal Confidentiality of Alcohol and Drug Abuse Patient Records regulations: The Federal rules restrict any use of the information to criminally investigate or prosecute any alcohol or drug abuse patient.[facility] HospitalIn the event this information is protected by the Federal Confidentiality of Alcohol and Drug Abuse Patient Records regulations: The Federal rules restrict any use of the information to criminally investigate or prosecute any alcohol or drug abuse patient.[facility] HospitalIn the event this information is protected by the Federal Confidentiality of Alcohol and Drug Abuse Patient Records regulations: The Federal rules restrict any use of the information to criminally investigate or prosecute any alcohol or drug abuse patient.[facility] Care Teams (unrecognized sec tion and content) Behavioral Scientist Relationship Specialty Start Date End Date LucillelauraDhaval lemus, VP CLINICAL [address] [facility] [address] [place] [address] PCP - General Internal Medicine 11/10/20 Team Status: Active Member Role Status Dates Dr. Kristina Brandon , DO Primary Care Provider Active Team Status: Inactive Member Role Status Dates Dr. Kristina Brandon DO Primary Care Provider Active Dr. Brandt Dang MD Attending Provider, Referring Provider Active Team Status: Inactive Member Role Status Dates Dr. Kristina Brandon DO Primary Care Provider Active Dr. León Barcenas MD Attending Provider Active Team Status: Inactive Member Role Status Dates Dr. Kristina Brandon DO Primary Care Provider Active Dr. Arik Rooney MD Attending Provider, Emergency Pro vider Active Team Status: Inactive Member Role Status Dates Dr. Kristina Brandon DO Primary Care Provider Active Dr. Arnoldo Monae DO Attending Provider, Emergency Provider Active Team Status: Inactive Member Role Status Dates Dr. Kristina Brandon DO Primary Care Provider Active CLAYTON Coon Attending Provider Active Team Status: Active Member Role Status Dates Dr. Kristina Brandon DO Primary Care Provider Active Dr. Angel Luis Middleton MD Attending Provider, Referri ng Provider Active Team Status: Inactive Member Role Status Dates Dr. Kristina Brandon DO Primary Care Provider Active Dr. Angel Luis Middleton MD Attending Provider, Referri ng Provider Active Team Status: Active Member Role Status Dates Dr. Kristina Brandon DO Primary Care Pr ovider, Attending Provider, Referring Provider Active Team Status: Inactive Member Role Status Dates Dr. Kristina Brandon DO Primary Care Provider Active Dr. Jeancarlos Hunt DO Emergency Provider Active Team Status: Inactive Member Role Status Dates Dr. Kristina Brandon DO Primary Care Pr ovider, Attending Provider, Referring Provider Active Team Status: Active Member Role Status Dates Dr. Jaclyn Siddiqui MD Primary Care Provider Active Team Status: Inactive Member Role Status Dates Dr. Kristina Brandon DO Primary Care Provider, Referr ing Provider Active Dr. Brandt Dang MD Attending Provider Active Team Status: Inactive Member Role Status Dates Dr. Kristina Brandon DO Primary Care Provider, Referr ing Provider Active Dr. Jaclyn Siddiqui MD Attending Provider Active Team Status: Inactive Member Role Status Dates Dr. Kristina Brandon DO Primary Care Provider, Referr ing Provider Active Dick Leonard PA, PA Attending Provider Active Team Status: Inactive Member Role Status Dates Dr. Kristina Brandon DO Primary Care Provider, Referr ing Provider Active Howard Dutton MD Attending Provider Active Team Status: Inactive Member Role Status Dates Dr. Jaclyn Siddiqui MD Primary Care Provider, Referri ng Provider Active Howard Dutton MD Attending Provider Active Team Status: Inactive Member Role Status Dates Howard Dutton MD Attending Provider, Referring Prov ider Active Dr. Jaclyn Siddiqui MD Primary Care Provider Active Team Status: Inactive Member Role Status Dates Dr. Kristina Brandon DO Primary Care Provider Active Dr. Jeancarlos Hunt DO Attending Provider, Emergency P harsh Active Team Status: Inactive Member Role Status Dates Dr. Jaclyn Siddiqui MD Primary Care Provider Active Dr. Arnoldo Monae DO Emergency Provider Active Team Status: Inactive Member Role Status Dates Dr. Kristina Brandon DO Referring Provider Active Dr. Jaclyn Siddiqui MD Primary Care Provider, Attendi ng Provider Active Team Status: Inactive Member Role Status Dates Dr. Kristina Brandon DO Referring Provider Active Dr. Brandt Dang MD Attending Provider Active Dr. Jaclyn Siddiqui MD Primary Care Provider Active Team Status: Inactive Member Role Status Dates Dr. Jaclyn Siddiqui MD Primary Care Provider Active Dr. Arnoldo Monae DO Attending Provider, Emergency Provider Active Team Status: Inactive Member Role Status Dates Dr. Jaclyn Siddiqui MD Primary Care Provider Active Dr. Angel Luis Middleton MD Attending Provider, Referri ng Provider Active Team Status: Inactive Member Role Status Dates Dr. Jaclyn Siddiqui MD Primary Care Provider, Attendi ng Provider Active Behavioral Scientist Relationship Specialty Start Date End Date Dhaval Israel CNP [address] [facility] [address] [place] [address] PCP - General Internal Medicine 11/10/20 Behavioral Scientist Relationship Specialty Start Date End Date Dhaval Israel CNP [address] [facility] [address] [place] [address] PCP - General Internal Medicine 11/10/20 Behavioral Scientist Relationship Specialty Start Date End Date Dhaval Israel CNP [address] [facility] [address] [place] [address] PCP - General Internal Medicine 11/10/20 Behavioral Scientist Relationship Specialty Start Date End Date hDaval Israel CNP [address] [facility] [address] [place] [address] PCP - General Internal Medicine 11/10/20 Behavioral Scientist Relationship Specialty Start Date End Date Dhaval Israel CNP [address] [facility] [address] [place] [address] PCP - General Internal Medicine 11/10/20 Behavioral Scientist Relationship Specialty Start Date End Date Indio Medina MD [facility] [address] PCP - General Family Medicine 01/18/24 Behavioral Scientist Relationship Specialty Start Date End Date Indio Medina MD [address] [place] [address] PCP - General Family Medicine 01/18/24 Podlogar, TIFFANY Zuñiga.VP CLINICAL [address] [place] [address] Safety Equipment Tester Family Medicine 02/04/24 Behavioral Scientist Relationship Specialty Start Date End Date Indio Medina MD [address] [place] [address] PCP - General Family Medicine 01/18/24 Podlogar, TIFFANY Zuñiga.VP CLINICAL [address] [place] [address] Safety Equipment Tester Family Medicine 02/04/24 Behavioral Scientist Relationship Specialty Start Date End Date Indio Medina MD [address] [place] [address] PCP - General Family Medicine 01/18/24 Podlogar, TIFFANY Zuñiga.VP CLINICAL [address] [place] [address] Safety Equipment Tester Family Medicine 02/04/24 Behavioral Scientist Relationship Specialty Start Date End Date Podlogar, TIFFANY Zuñiga.VP CLINICAL [address] [place] [address] Safety Equipment Tester Family Medicine 02/04/24 Behavioral Scientist Relationship Specialty Start Date End Date PodlogarZara APRN.VP CLINICAL [address] [place] [address] Safety Equipment Tester Family Medicine 02/04/24 Behavioral Scientist Relationship Specialty Start Date End Date Podlogar, Zara, DEFENSE ANALYST.VP CLINICAL [address] [place] [address] Safety Equipment Tester Family Medicine 02/04/24 Behavioral Scientist Relationship Specialty Start Date End Date Podlogar, Zara, DEFENSE ANALYST.VP CLINICAL [address] [place] [address] Safety Equipment Tester Family Medicine 02/04/24 Behavioral Scientist Relationship Specialty Start Date End Date Podlogar, Zara, DEFENSE ANALYST.VP CLINICAL [address] [place] [address] Safety Equipment Tester [facility] Medicine 02/04/24 Behavioral Scientist Relationship Specialty Start Date End Date Indio Medina MD [address] [place] [address] PCP - General Family Medicine 06/06/24 Podlogar, Zara, DEFENSE ANALYST.VP CLINICAL [address] [place] [address] [facility]/04/24 Podlogar, Zara, DEFENSE ANALYST.VP CLINICAL [address] [place] [address] Family Medicine 06/06/24 Behavioral Scientist Relationship Specialty Start Date End Date Indio Medina MD [address] [place] [address] PCP - General Family Medicine 06/06/24 Podlogar, Zara, DEFENSE ANALYST.VP CLINICAL [address] [place] [address] Safety Equipment Tester Family Medicine 02/04/24 Podlogar, Zara, DEFENSE ANALYST.VP CLINICAL [address] [facility], [place] [id number] Family Medicine 06/06/24 Behavioral Scientist Relationship Specialty Start Date End Date Indio Medina MD [address] [facility], [place] [address] PCP - General Family Medicine 06/06/24 Podlogar, Zara, DEFENSE ANALYST.VP CLINICAL [address] [facility], [place] [id number] Safety Equipment Tester Family Medicine 02/04/24 Podlogar, Zara, DEFENSE ANALYST.VP CLINICAL [address] [facility], [place] [address] Family Medicine 06/06/24 Team Status: Inactive Member Role Status Dates Dr. Jaclyn Siddiqui MD Primary Care Provider Active Start: March 30, 2024 End: March 30, 2024 Dr. Angel Luis Middleton MD Attending Provider Active Start: March 30, 2024 End: March 30, 2024 Dr. Angel Luis Middleton MD Referring Provider Active Start: March 30, 2024 End: March 30, 2024 Team Status: Inactive Member Role Status Dates Dr. Jaclyn Siddiqui MD Primary Care Provider Active Start: April 11, 2024 End: April 11, 2024 Dr. Brandt Dang MD Attending Provider Active Start: April 11, 2024 End: April 11, 2024 Dr. Brandt Dang MD Referring Provider Active Start: April 11, 2024 End: April 11, 2024 Team Status: Inactive Member Role Status Dates Dr. Jaclyn Siddiqui MD Primary Care Provider Active Start: May 14, 2024 End: May 14, 2024 Dr. Brandt Dang MD Attending Provider Active Start: May 14, 2024 End: May 14, 2024 Dr. Brandt Dang MD Referring Provider Active Start: May 14, 2024 End: May 14, 2024 Team Status: Inactive Member Role Status Dates Dr. Jaclyn Siddiqui MD Primary Care Provider Active Start: June 12, 2024 End: June 12, 2024 Dr. Brandt Dang MD Attending Provider Active Start: June 12, 2024 End: June 12, 2024 Dr. Brandt Dang MD Referring Provider Active Start: June 12, 2024 End: June 12, 2024 Team Status: Inactive Member Role Status Dates Dr. Jaclyn Siddiqui MD Primary Care Provider Active Start: July 16, 2024 End: July 16, 2024 Dr. Jaclyn Siddiqui MD Referring Provider Active Start: July 16, 2024 End: July 16, 2024 Dr. Brandt Dang MD Attending Provider Active Start: July 16, 2024 End: July 16, 2024 Behavioral Scientist Relationship Specialty Start Date End Date Indio Medina MD [address] [place] [address] PCP - General Family Medicine 06/06/24 Podlogar, Zara, DEFENSE ANALYST.VP CLINICAL [address] [place] [address] [facility] Family Medicine 02/04/24 Podlogar, Zara, DEFENSE ANALYST.VP CLINICAL [address] [place] [address] Family Medicine 06/06/24 Behavioral Scientist Relationship Specialty Start Date End Date Indio Medina MD [address] [facility], [place] [address] PCP - General Family Medicine 06/06/24 Podlogar, Zara, DEFENSE ANALYST.VP CLINICAL [address] [place] [address] Safety Equipment Tester Family Medicine 02/04/24 Podlogar, TIFFANY Zuñiga.VP CLINICAL [address] [place] [address] Family Medicine 06/06/24 Eben Piper APRN.VP CLINICAL [address] [facility] [place] [address] Safety Equipment Tester [facility] 08/09/24 Team Status: Inactive Member Role Status Dates Dr. Jaclyn Siddiqui MD Primary Care Provider Active Start: July 16, 2024 End: July 16, 2024 Dr. Brandt Dang MD Attending Provider Active Start: July 16, 2024 End: July 16, 2024 Dr. Brandt Dang MD Referring Provider Active Start: July 16, 2024 End: July 16, 2024 Team Status: Inactive Member Role Status Dates Dr. Jaclyn Siddiqui MD Primary Care Provider Active Start: August 16, 2024 End: August 16, 2024 Dr. Jaclyn Siddiqui MD Referring Provider Active Start: August 16, 2024 End: August 16, 2024 Dr. Brandt Dang MD Attending Provider Active Start: August 16, 2024 End: August 16, 2024 Behavioral Scientist Relationship Specialty Start Date End Date Indio Medina MD [address] [place] [address] PCP - General Family Medicine 06/06/24 Podlogar, Zara, DEFENSE ANALYST.VP CLINICAL [address] [place] [address] Safety Equipment Tester Family Medicine 02/04/24 Podlogar, ANDREW ZuñigaN.VP CLINICAL [address] [place] [address] Family Medicine 06/06/24 Eben Piper APRN.VP CLINICAL [address] [place] [address] Safety Equipment Tester Family Medicine 08/09/24 Team Status: Active Member Role/Relationship Status Dates Dr. Jaclyn Siddiqui MD Primary Care Provider Active Team Status: Inactive Member Role/Relationship Status Dates Dr. Jaclyn Siddiqui MD Primary Care Provider Active Start: June 12, 2024 End: June 12, 2024 Dr. Brandt Dang MD Attending Provider Active Start: June 12, 2024 End: June 12, 2024 Dr. Brandt Dang MD Referring Provider Active Start: June 12, 2024 End: June 12, 2024 Team Status: Inactive Member Role/Relationship Status Dates Dr. Jaclyn Siddiqui MD Primary Care Provider Active Start: July 16, 2024 End: July 16, 2024 Dr. Brandt Dang MD Attending Provider Active Start: July 16, 2024 End: July 16, 2024 Dr. Brandt Dang MD Referring Provider Active Start: July 16, 2024 End: July 16, 2024 Team Status: Inactive Member Role/Relationship Status Dates Dr. Jaclyn Siddiqui MD Primary Care Provider Active Start: August 16, 2024 End: August 16, 2024 Dr. Jaclyn Siddiqui MD Referring Provider Active Start: August 16, 2024 End: August 16, 2024 Dr. Brandt Dang MD Attending Provider Active Start: August 16, 2024 End: August 16, 2024 Team Status: Inactive Member Role/Relationship Status Dates Dr. Jaclyn Siddiqui MD Primary Care Provider Active Start: September 17, 2024 End: September 17, 2024 Dr. Jaclyn Siddiqui MD Referring Provider Active Start: September 17, 2024 End: September 17, 2024 Dr. Brandt Dang MD Attending Provider Active Start: September 17, 2024 End: September 17, 2024 Team Status: Inactive Member Role/Relationship Status Dates Dr. Jaclyn Siddiqui MD Primary Care Provider Active Start: August 16, 2024 End: August 16, 2024 Dr. Brandt Dang MD Attending Provider Active Start: August 16, 2024 End: August 16, 2024 Dr. Brandt Dang MD Referring Provider Active Start: August 16, 2024 End: August 16, 2024 Team Status: Inactive Member Role/Relationship Status Dates Dr. Jaclyn Siddiqui MD Primary Care Provider Active Start: October 09, 2024 End: October 09, 2024 Dr. Jaclyn Siddiqui MD Referring Provider Active Start: October 09, 2024 End: October 09, 2024 Dr. Brandt Dang MD Attending Provider Active Start: October 09, 2024 End: October 09, 2024 Behavioral Scientist Relationship Specialty Start Date End Date Indio Medina MD [address] [facility], [place] [address] PCP - General Family Medicine 06/06/24 Podlogar, Zara, DEFENSE ANALYST.VP CLINICAL [address] [facility], [place] [address] Safety Equipment Tester Family Medicine 02/04/24 Podlogar, Zara, DEFENSE ANALYST.VP CLINICAL [address] [facility], [place] [address] Family Medicine 06/06/24 Eben Piper DEFENSE ANALYST.VP CLINICAL [address] [facility] [place], [place] [address] [facility] Team Status: Inactive Member Role/Relationship Status Dates Dr. Jaclyn Siddiqui MD Primary Care Provider Active Start: July 16, 2024 End: July 16, 2024 Dr. Brandt Dang MD Attending Provider Active Start: July 16, 2024 End: July 16, 2024 Dr. Brandt Dang MD Referring Provider Active Start: July 16, 2024 End: July 16, 2024 Team Status: Inactive Member Role/Relationship Status Dates Dr. Jaclyn Siddiqui MD Primary Care Provider Active Start: August 16, 2024 End: August 16, 2024 Dr. Brandt Dang MD Attending Provider Active Start: August 16, 2024 End: August 16, 2024 Dr. Brandt Dang MD Referring Provider Active Start: August 16, 2024 End: August 16, 2024 Team Status: Inactive Member Role/Relationship Status Dates Dr. Jaclyn Siddiqui MD Primary Care Provider Active Start: September 17, 2024 End: September 17, 2024 Dr. Jaclyn Siddiqui MD Referring Provider Active Start: September 17, 2024 End: September 17, 2024 Dr. Brandt Dang MD Attending Provider Active Start: September 17, 2024 End: September 17, 2024 Team Status: Inactive Member Role/Relationship Status Dates Dr. Jaclyn Siddiqui MD Primary Care Provider Active Start: October 09, 2024 End: October 09, 2024 Dr. Jaclyn Siddiqui MD Referring Provider Active Start: October 09, 2024 End: October 09, 2024 Dr. Brandt Dang MD Attending Provider Active Start: October 09, 2024 End: October 09, 2024 Team Status: Inactive Member Role/Relationship Status Dates Dr. Jaclyn Siddiqui MD Primary Care Provider Active Start: October 18, 2024 End: October 18, 2024 Dr. Jaclyn Siddiqui MD Referring Provider Active Start: October 18, 2024 End: October 18, 2024 Dr. Brandt Dang MD Attending Provider Active Start: October 18, 2024 End: October 18, 2024 Team Status: Inactive Member Role/Relationship Status Dates Dr. Jaclyn Siddiqui MD Primary care physician Active Start: August 16, 2024 End: August 16, 2024 Dr. Brandt Dang MD Attending physician Active Start: August 16, 2024 End: August 16, 2024 Dr. Brandt Dang MD Referring Provider Active Start: August 16, 2024 End: August 16, 2024 Team Status: Inactive Member Role/Relationship Status Dates Dr. Jaclyn Siddiqui MD Primary care physician Active Start: September 17, 2024 End: September 17, 2024 Dr. Brandt Dang MD Attending physician Active Start: September 17, 2024 End: September 17, 2024 Dr. Brandt Dang MD Referring Provider Active Start: September 17, 2024 End: September 17, 2024 Team Status: Inactive Member Role/Relationship Status Dates Dr. Jaclyn Siddiqui MD Primary care physician Active Start: October 09, 2024 End: October 09, 2024 Dr. Jaclyn Siddiqui MD Referring Provider Active Start: October 09, 2024 End: October 09, 2024 Dr. Brandt Dang MD Attending physician Active Start: October 09, 2024 End: October 09, 2024 Team Status: Inactive Member Role/Relationship Status Dates Dr. Jaclyn Siddiqui MD Primary care physician Active Start: October 18, 2024 End: October 18, 2024 Dr. Jaclyn Siddiqui MD Referring Provider Active Start: October 18, 2024 End: October 18, 2024 Dr. Brandt Dang MD Attending physician Active Start: October 18, 2024 End: October 18, 2024 Team Status: Inactive Member Role/Relationship Status Dates Dr. Jaclyn Siddiqui MD Primary care physician Active Start: November 19, 2024 End: November 19, 2024 Dr. Jaclyn Siddiqui MD Referring Provider Active Start: November 19, 2024 End: November 19, 2024 Dr. Brandt Dang MD Attending physician Active Start: November 19, 2024 End: November 19, 2024 Team Status: Inactive Member Role/Relationship Status Dates Dr. Jaclyn Siddiqui MD Primary care physician Active Start: September 17, 2024 End: September 17, 2024 Dr. Brandt Dang MD Attending physician Active Start: September 17, 2024 End: September 17, 2024 Dr. Brandt Dang MD Referring Provider Active Start: September 17, 2024 End: September 17, 2024 Team Status: Inactive Member Role/Relationship Status Dates Dr. Jaclyn Siddiqui MD Primary care physician Active Start: October 09, 2024 End: October 09, 2024 Dr. Jaclyn Siddiqui MD Referring Provider Active Start: October 09, 2024 End: October 09, 2024 Dr. Brandt Dang MD Attending physician Active Start: October 09, 2024 End: October 09, 2024 Team Status: Inactive Member Role/Relationship Status Dates Dr. Jaclyn Siddiqui MD Primary care physician Active Start: October 18, 2024 End: October 18, 2024 Dr. Brandt Dang MD Attending physician Active Start: October 18, 2024 End: October 18, 2024 Dr. Brandt Dang MD Referring Provider Active Start: October 18, 2024 End: October 18, 2024 Team Status: Inactive Member Role/Relationship Status Dates Dr. Jaclyn Siddiqui MD Primary care physician Active Start: November 19, 2024 End: November 19, 2024 Dr. Brandt Dang MD Attending physician Active Start: November 19, 2024 End: November 19, 2024 Dr. Brandt Dang MD Referring Provider Active Start: November 19, 2024 End: November 19, 2024 Team Status: Inactive Member Role/Relationship Status Dates Dr. Jaclyn Siddiqui MD Referring Provider Active Start: December 17, 2024 End: December 17, 2024 Dr. Brandt Dang MD Attending physician Active Start: December 17, 2024 End: December 17, 2024 Reason for Visit (unrecogniz ed section and content) Reason Comments Radiology CT Specialty Diagnoses / Procedures Referred By Contac t Referred To Contact CT IMAGING Diagnoses Left lower quadrant abdominal pain Procedures CT ABD/PEL W IVCON CT ABD & PELVIS W/CONTRAST Podlogar, Zaar, DEFENSE ANALYST.VP CLINICAL [address] [place] [address] [place] [address] Referral ID Status Reason Start Date Expiration Date V isits Requested Visits Authorized [id number] Closed Auto-Generate d Referral 01/03/2024 02/28/2024 2 2 Reason Comments Abdominal Pain Constipation, patien t believes pain could also be from stress Reason Comments Results Reason Comments Future Appointment Reason Comments Cyst Under right armpit Reason Comments Consult Rt axillary skin cys t Specialty Diagnoses / Procedures Referred By Contac t Referred To Contact General Surgery Diagnoses Skin cyst Procedures CONSULT TO GENERAL SURGERY OFFICE/OUTPATIENT [facility] 60 MINUTES Podlogar, Zara, DEFENSE ANALYST.VP CLINICAL [address] [place] [address] Referral ID Status Reason Start Date Expiration Date V isits Requested Visits Authorized [id number] Closed PCP Requested Referral 01/05/2024 01/04/2025 1 1 Reason Comments Procedure Excision of right ax illary sebaceous cyst, excision of left forearm skin lesion Reason Comments New Patient Last seen in c olonoscopy Reason Comments Procedure COLONOSCOPY Reason Comments Consult Physical Therapy ( P elvic Floor Therapy) Reason Comments recheck left arm Reason Comments Returning Patient's Call Reason Comments Establish Care Reason Onset Date Comments Results 06/15/2024 Reason Comments Appointment Reason Comments LESION, SKIN Reason Onset Date Comments Refill Request 07/31/2024 Reason Comments Follow Up Reason Onset Date Comments Refill Request 09/03/2024 FOR RECORDS PERTAINING TO PATIENTS WHO ARE OR HAVE BEEN ENROLLED IN A CHEMICAL DEPENDENCY/SUBSTANCEABUSE PROGRAM, SOME INFORMATION MAY BE OMITTED. This clinical summary was aggregated from multiple sources. Caution should be exercised in using it in the provision of clinical care. This summary normalizes information from multiple sources, and as a consequence, information in this document may materially change the coding, format and clinical context of patient data. In addition, data may be omitted in some cases. CLINICAL DECISIONS SHOULD BE BASED ON THE PRIMARY CLINICAL RECORDS. [employer] provides no warranty or guarantee of the accuracy or completeness of information in this document.
== END | disposition home or self-care (01) ==
LOC: CT 16:27
PROVIDERS: PCP Internal Medicine; Referring Provider Psychiatry & Neurology Neurology; Visit Provider Psychiatry & Neurology Neurology
DX: M54.2 Cervicalgia (principal)
CPT/HCPCS: 72125